=== PATIENT | male | born 1955 | race Caucasian/White ===

== ENCOUNTER 2020-05-23 09:28 | Day surgery (SDC) | payer BC, SELFPAY ==
--- NOTE | 2020-05-23 | FL_ITS ---
EXAMINATION: XR LUMBAR PUNCTURE CLINICAL INFORMATION: Encephalopathy COMPARISON: None TECHNIQUE/findings: Procedure and risks and benefits including bleeding, infection and headache were discussed with the patient and his and informed consent was obtained. Patient was positioned in the prone/slight ELLER position. The left back was prepped and draped in the usual sterile fashion. The skin and soft tissues were anesthetized with 1% lidocaine plain. Using fluoroscopic guidance and a 22-gauge spinal needle, left-sided interlaminar access at the L4-L5 level was obtained. Opening pressure was 12 cm of water. 8 mL of clear CSF fluid was removed. One fluoroscopic image was saved. Diagnostic specimen was sent. FLUOROSCOPY TIME: 0.1 minute DOSE AREA PRODUCT: 0.9 mortensen per centimeter squared IMPRESSION: Fluoroscopy-guided lumbar puncture.
[2020-05-23 10:07] LABS: MANUAL DIFF FLAG NO
[2020-05-23 10:15] LABS: Basophils Percent Auto 0.5 % (0-2); Eosinophils Absolute Auto 0.1 X10*3/uL (0.0-0.4); Eosinophils Percent Auto 1.3 % (0-4); Hematocrit 43.3 % (42-52); Hemoglobin 14.9 g/dl (14.0-18.0); Imm Gran Abs Auto 0.03 X10*3/uL (0.00-0.03); Imm Gran Pct Auto 0.4 % (0.0-0.4); Lymphocytes Absolute Auto 1.9 X10*3/uL (1.2-4.9); Lymphocytes Percent Auto 24.5 % (20-40); Mean Corpuscular HGB Conc 34.4 g/dl (31.0-36.0); Mean Corpuscular Hemoglobin 29.4 pg (27.0-33.0); Mean Corpuscular Volume 85.4 fL (80-98); Mean Platelet Volume 9.2 fL (9.4-12.4); Monocytes Absolute Auto 0.7 X10*3/uL (0.1-1.2); Monocytes Percent Auto 9.6 % (2-11); Neutrophils Absolute Auto 4.8 X10*3/uL (2.0-8.3); Neutrophils Percent Auto 63.7 % (45-73); Platelet Count 252 X10*3/uL (160-400); Red Blood Count 5.07 X10*6/uL (4.60-5.80); Red Cell Distribution Width 13.2 % (11.0-16.0); White Blood Count 7.6 X10*3/uL (4.8-10.8)
[2020-05-23 10:27] LABS: INTERNATIONAL NORM RATIO 0.9 (0.9-1.1); Prothrombin Time 11.2 SEC (10.8-13.0)
[2020-05-23 10:28] VITALS: BP 141/88; PULSE 96; RESP 20; TEMP 36.6; O2SAT 95
[2020-05-23 10:29] VITALS: BMI 25.7
[2020-05-23 10:29] LABS: Partial Thromboplastin Time 33.8 SEC (24.1-38.0)
[2020-05-23 12:58] VITALS: BP 150/81; PULSE 87; RESP 14; TEMP 37.2; O2SAT 94
[2020-05-23 13:29] VITALS: BP 142/89; PULSE 78; RESP 16; O2SAT 94
[2020-05-23 13:41] LABS: Appearance CSF CLEAR; CSF Tube # 3
[2020-05-23 13:54] LABS: Glucose CSF 64 mg/dL; Total Protein CSF 49.1 mg/dL (15-45)
[2020-05-23 14:02] VITALS: BP 136/90; PULSE 86; RESP 16; O2SAT 93
[2020-05-23 15:02] VITALS: BP 152/93; PULSE 85; RESP 17; TEMP 36.6; O2SAT 93
[2020-05-23 15:13] LABS: Lymphocytes CSF 100 %
[2020-05-23 15:14] LABS: Appearance CSF CLEAR; CSF Tube # 4; Color CSF COLORLESS; Red Blood Cell CSF 1 MM*3; White Blood Cell CSF 2 MM*3
== END 2020-05-23 23:59 ==
PROVIDERS: Radiology Diagnostic Radiology; PCP Internal Medicine; Visit Provider Psychiatry & Neurology Neurology
PROC: 009U3ZZ Drainage of Spinal Canal, Percutaneous Approach (ICD-10-PCS; CPT 62270; principal; 2020-05-23 11:00)
DX: G93.40 Encephalopathy, unspecified (principal); F41.8 Other specified anxiety disorders; F22 Delusional disorders; M19.90 Unspecified osteoarthritis, unspecified site
CPT/HCPCS: 36415; 62328; 82945; 84157; 85025; 85610; 85730; 87015; 87070; 87205; 89051

== ENCOUNTER → 2020-09-20 15:20 | Outpatient (BNVA) | payer BC, SELFPAY | PROVIDERS: PCP Internal Medicine; Visit Provider Surgery | DX: L72.0 Epidermal cyst (principal); L08.9 Local infection of the skin and subcutaneous tissue, unspecified | CPT/HCPCS: 10060; 10061 ==

== ENCOUNTER 2023-02-07 07:57 | Outpatient (REF) | payer MEDICARE, BC, SELFPAY ==
--- NOTE | 2023-02-07 09:16 | EEG_ITS ---
This is a 16 channel EEG with an EKG lead. The patient is reported awake, restless and confused. Background EEG rhythm is low to medium amplitude, mixed theta, beta with no obvious asymmetry or paroxysmal tendency. Photic stimulation does not produce any significant abnormality. Hyperventilation is not performed. Cardiac lead does not reveal any significant abnormality. No sharp wave spikes or paroxysmal tendencies noted. IMPRESSION: Mild slowing, otherwise no significant abnormality. MD CHIP Ling/RUDY / [id number]
== END 2023-02-07 07:58 | disposition home or self-care (01) ==
LOC: HO.NEURO 07:57
PROVIDERS: Visit Provider Psychiatry & Neurology Neurology
DX: G31.83 Neurocognitive disorder with Lewy bodies (principal)
CPT/HCPCS: 95816

== ENCOUNTER 2025-07-31 13:40 | Inpatient (IN) | payer OTHER, SELFPAY ==
--- NOTE | ~2025-07-31 | US_ITS ---
EXAMINATION: US TRIPLEX LOWER EXTREMITY, BILATERAL CLINICAL INFORMATION: Subsegmental PE COMPARISON: None available. TECHNIQUE: Color-flow triplex imaging with spectral analysis and compression Doppler were performed on the bilateral lower extremities. FINDINGS: Respiratory variation, normal compression and augmented flow are demonstrated in the interrogated common femoral vein, superficial femoral vein, profunda femoral vein, popliteal vein and midcalf peroneal and posterior tibial venous segments, both lower extremities. There is no Nguyen's cyst. US/US venous duplex LE BI IMPRESSION: No acute deep venous thrombosis interrogated veins and the lower extremity. Negative for DVT.. Electronically signed by: Jake Leyva MD 08/02/2025 10:30 AM EST
--- NOTE | ~2025-07-31 | CT_ITS ---
CLINICAL HISTORY: SOB, hypoxia 82% room air, R O PE. Exam: Contrast-enhanced chest CT pulmonary angiogram with multiplanar reformats. Comparison: None. Findings: There are left lower lobe subsegmental pulmonary emboli (17; 313 -343). No other definable pulmonary emboli. The RV/LV ratio approaches 1.0 (measured on 17; 365), borderline in terms of the meeting CT criteria for right ventricular strain. No mediastinal or hilar masses or adenopathy. There appears to be a poorly defined right lobe thyroid nodule measuring up to 3.2 cm (17; 115). No pleural or pericardial effusions. Images below the diaphragms reveal no acute abnormalities. Lungs reveal likely atelectasis within the right posterior sulcus. No other focal consolidation. Airways are patent. No pneumothorax. Osseous structures reveal no destructive osseous lesions. Impression: 1. Left lower lobe subsegmental pulmonary emboli, with borderline findings raising the possibility of developing right ventricular strain. This document has been electronically signed by: Chava Teresa MD on 07/31/2025 16:26:52
--- NOTE | ~2025-07-31 | CT_ITS ---
CLINICAL HISTORY: mental status change CT head without contrast Comparison: None Findings: No intracranial mass, midline shift, hydrocephalus, or acute hemorrhage. No CT evidence of acute ischemia. Visualized paranasal sinuses and mastoid air cells normal. Orbits unremarkable. No skull fracture Impression: 1. No acute intracranial abnormalities. This document has been electronically signed by: Chava Teresa MD on 07/31/2025 16:05:32
--- NOTE | ~2025-07-31 | XR_ITS ---
CLINICAL HISTORY: SOB 1 view chest x-ray. Comparison: None Findings: No consolidation or effusion. Cardiac and mediastinal contours appear unremarkable. There is elevation of the right hemidiaphragm. Bones unremarkable. Impression: 1. No acute pulmonary disease. 2. Elevated right hemidiaphragm. This document has been electronically signed by: Chava Teresa MD on 07/31/2025 14:47:01
--- NOTE | 2025-07-31 13:47 | ECG_ITS ---
Test Reason : weakness Blood Pressure : */* mmHG Vent. Rate : 103 BPM Atrial Rate : 103 BPM P-R Int : 144 ms QRS Dur : 88 ms QT Int : 360 ms P-R-T Axes : 57 20 270 degrees QTcB Int : 471 ms Sinus tachycardia T wave abnormality, consider inferior ischemia T wave abnormality, consider anterolateral ischemia Abnormal ECG When compared with ECG of 10-Apr-2020 11:17, ST more depressed Anterior leads Non-specific change in ST segment in Lateral leads T wave inversion now evident in Inferior leads T wave inversion now evident in Anterolateral leads Referred By: Vy Gross Electronically Signed By: German Hayes
[2025-07-31 13:56] VITALS: BP 168/104; PULSE 105; O2SAT 94
[2025-07-31 14:05] VITALS: BP 145/95; PULSE 104; RESP 26; TEMP 36.4; O2SAT 83; BMI 26.4
[2025-07-31 14:30] LABS: Hematocrit 50.4 % (42.0-52.0); Hemoglobin 17.4 g/dl (14.0-18.0); Imm Gran Abs Auto 0.02 X10*3/uL (0.00-0.03); Imm Gran Pct Auto 0.2 % (0.0-0.4); Lymphocytes Absolute Auto 0.4 X10*3/uL (1.2-4.9); MANUAL DIFF FLAG SCAN; Mean Corpuscular HGB Conc 34.5 g/dl (31.0-36.0); Mean Corpuscular Hemoglobin 28.6 pg (27.0-33.0); Mean Corpuscular Volume 82.9 fL (80.0-98.0); NRBC Abs Auto 0.000 X10*3/uL (0.0-0.012); NRBC Pct Auto 0.0 /100WBC (0.0-0.2); Platelet Count 197 X10*3/uL (160-400); Red Blood Count 6.08 X10*6/uL (4.60-5.80); SCAN SMEAR FLAG 1; White Blood Count 8.3 X10*3/uL (4.8-10.8)
[2025-07-31 14:36] LABS: Ammonia 17 umol/L (13-55)
[2025-07-31 14:43] LABS: Alanine Aminotransferase 41 U/L (0-40); Albumin Level 4.4 g/dL (3.5-5.0); Alkaline Phosphatase 79 U/L (39-117); Anion Gap 17 (12-20); Aspartate Amino Transferase 31 U/L (5-37); Blood Urea Nitrogen 23 mg/dL (9-16); Calcium 8.8 mg/dL (8.4-10.2); Carbon Dioxide 22 mmol/L (22-29); Chloride 108 mmol/L (96-108); Creatinine Clr Calc Pharmacy 68.6; Estimated Glomerular Filt Rate > 60; Potassium 4.5 mmol/L (3.3-5.1); Sodium 142 mmol/L (135-145); Total Protein 7.2 g/dL (6.5-8.0)
[2025-07-31 14:49] LABS: D Dimer High Sensitivity 991 NG/ML
--- NOTE | 2025-07-31 14:50 | PC.NURSE ---
verbal order from dr fuller for home doses of seroquel and clonazepam. pt able to void into urinal, urine sample sent
[2025-07-31 14:51] LABS: Troponin-I High Sensitivity 9.5 ng/L (<3.5-35.0)
[2025-07-31 14:53] LABS: Appearance Urine Clear; Glucose Urine UA Negative (Negative); PH 5.0 (5.0-9.0); Specific Gravity - Urine >= 1.030 (1.005-1.025); UMIC TRIGGER UACC YES
[2025-07-31 15:09] LABS: Resp Syncy Virus RNA Qual PCR NEGATIVE (Negative); SARS COV2 PCR INHOUSE NEGATIVE (Negative)
[2025-07-31] MEDS: iohexoL 350 MG/ML 100 ML INFUS..BTL IV (15:16)
--- NOTE | 2025-07-31 15:41 | ED.AMS ---
HPI - Altered Mental Status General Chief Complaint: Altered Mental Status Stated Complaint: ams, stroke alert, gen weakness lnw 7a Time Seen by Provider: 07/31/25 14:17 Source: patient, family and EMS Mode of arrival: EMS Limitations: no limitations History of Present Illness ED Provider: DR. Gross HPI narrative: 69-year-old male history of mental deterioration since 2019 after he had a knee surgery, patient had a neurological workup including CT/ MRI/neurology consultation and patient is getting workup for dementia, came in today by ambulance after noticed that patient is more confused than his baseline. No head injury, no fall, no trauma, no fever, no chills, no CP, no abdominal pain. Patient found to be hypoxic in the emergency department no known lung disease. Patient otherwise shows no symptoms of acute stroke. Related Data Home Medications ?Medication ?Instructions ?Recorded ?Confirmed quetiapine 25 mg tablet 12.5 mg PO QID 05/23/20 07/31/25 tamsulosin 0.4 mg capsule 0.8 mg PO DAILY@1800 05/23/20 07/31/25 docusate sodium 100 mg capsule 200 mg PO DAILY@1800 09/20/20 07/31/25 (Colace) trazodone 100 mg tablet 200 mg PO BEDTIME 09/20/20 07/31/25 aspirin 81 mg tablet,delayed 81 mg PO DAILY 07/31/25 07/31/25 release carbidopa 25 mg-levodopa 100 mg 1 tab PO BID@0900,1800 07/31/25 07/31/25 tablet (Sinemet) clonazepam 0.5 mg tablet 0.125 mg PO TID PRN Anxiety 07/31/25 07/31/25 clonazepam 0.5 mg tablet 0.25 mg PO TID 07/31/25 07/31/25 diclofenac sodium 1 % topical gel 2 g topical DAILY 07/31/25 07/31/25 escitalopram oxalate 10 mg tablet 5 mg PO DAILY 07/31/25 07/31/25 melatonin 5 mg tablet 5 mg PO BEDTIME 07/31/25 07/31/25 memantine 10 mg tablet 10 mg PO BID@0900,1800 07/31/25 07/31/25 metoprolol succinate 100 mg 100 mg PO DAILY 07/31/25 07/31/25 tablet,extended release 24 hr mirtazapine 7.5 mg tablet 3.75 mg PO BEDTIME 07/31/25 07/31/25 polyethylene glycol 3350 17 17 g PO DAILY 07/31/25 07/31/25 gram/dose oral powder (Miralax) rivastigmine tartrate 3 mg capsule 3 mg PO BID@0900,1800 07/31/25 07/31/25 simvastatin 40 mg tablet 40 mg PO DAILY@1800 07/31/25 07/31/25 vitamins A,C,D-jccl-vklmge 2,148 1 tab PO BID@0900,1800 07/31/25 07/31/25 mcg-113 mg-45 mg-17.4 mg tablet (PreserVision AREDS) Allergies Allergy/AdvReac Type Severity Reaction Status Date / Time No Known Allergies Allergy Verified 07/31/25 14:06 Review of Systems Review of Systems: All other systems are reviewed and are negative Constitutional: Reports as per HPI and Reports no additional constitutional complaints Eyes: Reports as per HPI and Reports no additional eye complaints Reports system reviewed and no additional complaints, except as documented Cardiovascular: Reports as per HPI and Reports no additional cardiovascular complaints Respiratory: Reports as per HPI and Reports no additional respiratory complaints Gastrointestinal: Reports as per HPI and Reports no additional gastrointestinal complaints Genitourinary: Reports no additional female genitourinary complaints Musculoskeletal: Reports no additional musculoskeletal complaints Skin/Breast: Reports system reviewed and no additional complaints, except as docu Psychiatric: Reports no additional psychiatric complaints Endocrine: Reports no additional endocrine complaints Hematologic/Lymphatic: Reports no additional hematologic/lymphatic complaints Allergic/Immunologic: Reports no additional allergic/immunologic complaints Reports system reviewed and no additional complaints, except as documented and Reports Abnormal speech present [facility] Past Medical History Medical History Infected inclusion cyst 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 Anxiety as acute reaction to exceptional stress Depression Social History Social History Unable to assess alcohol history related to: Unknown Smoked in Last 30 Days: No Use of substances other than those prescribed or required for medical reasons: Unknown Advance Directives: Yes Advance Directives Information Provided: No Advance Directives on File: No Advance Directives Date on File: 05/23/20 Physical Exam ED Vital Signs: Vital Signs - 24 hr 07/31/25 14:05 07/31/25 16:00 Temperature 97.5 F Pulse Rate 104 H 89 Respiratory Rate 26 H 26 H Blood Pressure 145/95 H Pulse Oximetry 83 L 94 Oxygen Delivery Method Room Air Nasal Cannula Oxygen Flow Rate 4 BMI result Body Mass Index 26.4 Vital signs have been reviewed and appear to be correct. Blood pressure elevated. Heart rate normal. Respiratory rate normal. Temperature normal. Oxygen saturation normal. Appearance: Alert. Oriented X2 place and person.. No acute distress. Head: Normal external exam. Normocephalic. Atraumatic. No Aguila signs noted. No raccoon eyes noted Eyes: PERRLA. EOMI. Conjunctiva and sclera normal. Eyelids normal. ENT: TM's Normal. Pharynx normal. Uvula midline. Moist mucous membranes. No trismus noted. No drooling noted. No muffled voice noted. Neck: Normal inspection. Neck supple. FROM. No adenopathy. Thyroid Normal. No meningeal signs. No neck mass noted. CVS: Normal heart rate and rhythm. Heart sound normal. No murmurs noted. Pulses normal throughout. Respiratory: No respiratory distress. Painless inspiration. Breath sounds normal. No wheezes/rales/rhonchi noted. Chest nontender. No accessory muscle usage noted or decreased air movement noted. Abdomen: Soft and nontender. Bowel sounds normal in all 4 quadrants. No distention noted. No organomegaly noted. No visible injury noted. Back: No CVA tenderness. Full range of motion noted. Skin: Skin warm and dry. Normal skin color. Normal skin turgor. No rashes/lesions/lacerations noted. Extremities: No lower extremity edema. Extremities exhibit normal range of motion. Extremities nontender. Neuro: Oriented X [address] Place and person. Cranial nerve exam: II-XII are grossly intact No motor deficit. No sensory deficit. Reflexes normal. NIH Stroke Scale Internal: Initial- Upon Arrival Level of Consciousness: Alert Level of Consciousness Questions: Answers both questions correctly Level of Consciousness Commands: Performs both tasks correctly Best Gaze: Normal Visual: No visual loss Facial Palsy: Normal Motor Arm (Right): No drift Motor Arm (Left): No drift Motor Leg (Right): No drift Motor Leg (Left): No drift Limb Ataxia: Absent Sensory: Normal Best Language: No aphasia Dysarthia: Normal Extinction and Inattention: No abnormality Score: 0 Course Reevaluation(s) Reevaluation #1: 69-year-old male with a chronic decreased mental status since 2019 had a thorough workup for dementia as an outpatient return for confusion incidentally patient found to be hypoxic on room air corrected with 2 L of oxygen. await for both CTA head and neck and CTA of the chest to rule out pulmonary pathology, case signed out to Dr. Tate at the end of my shift to follow-up and the patient and dispo accordingly. Time: 16:02 Medications Administered Discontinued Medications Generic Name Dose Route Start Last Admin Trade Name Freq PRN Reason Stop Dose Admin Clonazepam 0.25 mg 07/31/25 14:49 07/31/25 14:57 Clonazepam 0.5 Mg Tablet PO 07/31/25 14:50 0.25 mg ONCE ONE Administration Enoxaparin Sodium 90 mg 07/31/25 16:35 07/31/25 16:59 Enoxaparin Sodium 100 Mg/Ml Syringe 1 mg/kg (90 mg) 07/31/25 16:36 90 mg SUBCUT Administration ONCE ONE Iohexol 100 ml 07/31/25 15:16 07/31/25 15:16 Iohexol 350 Mg/Ml 100 Ml Infus..Btl IV 07/31/25 15:17 65 ml ONCE ONE Administration Quetiapine Fumarate 12.5 mg 07/31/25 14:49 07/31/25 14:57 Quetiapine Fumarate 25 Mg Tablet PO 07/31/25 14:50 12.5 mg ONCE ONE Administration Medical Decision Making Medical Decision Making MDM Narrative: Patient is 69 years old presents today with having shortness of breath. Generalized malaise. Question confusion earlier. I took over the patient's case at the change of shift at 16:00. CTA angio of the chest was ordered. I reviewed the CTA angio also reviewed the finding with the radiology's group. He is positive for having a PE. With possible mild heart strain. Patient's blood pressure here is stable. Does have decreased oxygenation in the 80s. I started patient on Lovenox. Patient will require admission for further evaluation of the PE. The hospitalist team was Consulted. Patient to be admitted. Differential Diagnosis Differential Diagnoses: The differential diagnosis associated with the presentation includes ( Dementia, electrolyte derangement, severe anemia, hemorrhagic stroke, ischemic stroke, pulmonary embolism, pneumonia, pneumothorax, pleural effusion, congestive heart failure.) PE, pneumonia Admission/Observation Consideration of admission/observation: Escalation of care including admission/observation considered Consult Healthcare Provider Management of the patient was discussed with: Hospitalist ( case discussed with hospitalist team about the PE finding) Lab Data MDM Lab Attestation statement: I reviewed the patient's lab results. 07/31/25 14:20 07/31/25 14:20 Labs: Lab Results 07/31/25 07/31/25 07/31/25 Range/Units 14:20 14:35 14:46 WBC 8.3 (4.8-10.8) X10*3/uL RBC 6.08 H (4.60-5.80) X10*6/uL Hgb 17.4 (14.0-18.0) g/dl Hct 50.4 (42.0-52.0) % MCV 82.9 (80.0-98.0) fL MCH 28.6 (27.0-33.0) pg MCHC 34.5 (31.0-36.0) g/dl RDW 13.3 (11.0-16.0) % Plt Count 197 (160-400) X10*3/uL MPV 8.6 L (9.4-12.4) fL Immature Gran % (Auto) 0.2 (0.0-0.4) % Neut % (Auto) 90.2 H (45-73) % Lymph % (Auto) 4.3 L (20-40) % [place] % (Auto) 5.0 (2-11) % Eos % (Auto) 0.1 (0-4) % Baso % (Auto) 0.2 (0-2) % Lymph # (Auto) 0.4 L (1.2-4.9) X10*3/uL [place] # (Auto) 0.4 (0.1-1.2) X10*3/uL Eos # (Auto) 0.0 (0.0-0.4) X10*3/uL Baso # (Auto) 0.0 (0.0-0.2) X10*3/uL Abs Immat Gran (auto) 0.02 (0.00-0.03) X10*3/uL Absolute Neuts (auto) 7.5 (2.0-8.3) x10*3/uL Absolute Nucleated RBC 0.000 (0.0-0.012) X10*3/uL Nucleated RBC % (auto) 0.0 (0.0-0.2) /100WBC Smear Tech's Comments VERIFIED D-Dimer High Sensitivty 991 NG/ML Sodium 142 (135-145) mmol/L Potassium 4.5 (3.3-5.1) mmol/L Chloride 108 (96-108) mmol/L Carbon Dioxide 22 (22-29) mmol/L Anion Gap 17 (12-20) BUN 23 H (9-16) mg/dL Creatinine 1.13 (0.5-1.4) mg/dL Estim Creat Clear Calc 68.6 Estimated GFR > 60 Random Glucose 121 H (60-115) mg/dL Lactic Acid 1.8 (0.5-2.0) mmol/L Calcium 8.8 (8.4-10.2) mg/dL Total Bilirubin 0.8 (0.0-1.0) mg/dL Direct Bilirubin 0.3 (0.0-0.5) mg/dL AST 31 (5-37) U/L ALT 41 H (0-40) U/L Alkaline Phosphatase 79 (39-117) U/L Ammonia 17 (13-55) umol/L Troponin I High Sens 9.5 (<3.5-35.0) ng/L NT-Pro-B Natriuret Pep 2058.5 H (<300) pg/mL Total Protein 7.2 (6.5-8.0) g/dL Albumin 4.4 (3.5-5.0) g/dL Urine Color Yellow Urine Appearance Clear Urine pH 5.0 (5.0-9.0) Ur Specific [place] >= 1.030 H (1.005-1.025) Urine Protein 30 (1+) H (Neg-Trace) mg/dL Urine Glucose (UA) Negative (Negative) mg/dL Urine Ketones 15 (Negative) mg/dL Urine Blood Trace H (Negative) Urine Nitrite Negative (Negative) Ur Leukocyte Esterase Trace H (Negative) Urine RBC 6-10 H (0-2) /HPF Urine WBC 0-5 (0-5) /HPF Ur Squamous Epith Cells 0-2 (0-2) /HPF Urine Bacteria None Seen (None Seen) Hyaline Casts 0-2 (0-2) /LPF Influenza Type A (PCR) NEGATIVE (Negative) Influenza Type B (PCR) NEGATIVE (Negative) RSV RNA Qual (PCR) NEGATIVE (Negative) SARS-CoV-2 RNA (RT-PCR) NEGATIVE (Negative) Independent Interpretation I performed an independent interpretation of an: Plain X-Ray ( chest: No acute intrathoracic pathology.) and CT Scan Radiology Impression Discussion of test interpretation with radiology: I discussed test interpretation with the radiologist and I have reviewed the radiologist's reading. Critical Care Time Critical Care Time Critical Care Time: Yes Total Critical Care Time: 40 Attestation: I have personally provided 40 minutes of critical care time exclusive of time spent on separately billable procedures. Time includes review of lab data, radiology results, discussion with consultants, and monitoring for potential decompensation. Interventions were performed as documented above Discharge Plan Discharge Clinical Impression: Altered mental status, Hypoxia, Pulmonary embolism Patient Disposition: Admitted As Inpatient
[2025-07-31 16:00] VITALS: PULSE 89; RESP 26; O2SAT 94
--- OUTSIDE RECORDS SUMMARY | 2025-07-31 16:03 | XMS_ITS | Encounter Summary ---
Author Organization [facility] Address [address] [place] [address] Care Team Providers Care Medical Office Coordinator Name Role Phone Ref, Hasnopcp Primary Care Provider Unavailabl e Encounter Details Date Type Department Care Team (Latest Contact Info) Description 07/21/2025 myChart Message [address] [phone] Osman Ma MD [address] [place] [phone] Upcoming Appointment Social History Tobacco Use Types Packs/Day Years Used Date Smoking Tobacco: Former Cigarettes Smokeless Tobacco: Never Comments:Previous smoker for short time, not in years Alcohol Use Standard Drinks/Week Comments Not Currently 0 (1 standard drink = 0.6 oz pure alcohol) previously minimal alcohol use, now not drinking at all Sex and Gender Information Value Date Recorded Sex Assigned at Male 12/24/2022 6:56 PM EDT Legal Sex Male 3:59 AM EDT Gender Identity Male 12/24/2022 6:56 PM EDT Sexual Orientation Straight 12/24/2022 6: 56 PM EDT documented as of this encounter Plan of Treatment Upcoming Encounters Date Type Department Care Team (Late st Contact Info) Description 08/04/2025 1:30 PM EST Follow-Up [address] [phone] Osman Ma MD [address] [place] [phone] documented as of this encounter Visit Diagnoses Not on filedocumented in this encounter Care Teams Medical Office Coordinator Relationship Specialty Start Date End Date Ref, Pieter DO NOT EDIT THIS RECORD VIA PROVIDER ON THE FLY PCP - General E Learning Coordinator 10/01/22 documented as of this encounter
--- OUTSIDE RECORDS SUMMARY | 2025-07-31 16:03 | XMS_ITS | Encounter Summary ---
Author Organization [facility] Address [address] [place] [address] Care Team Providers Care Sanitation Tank Washer Name Role Phone Ref, Hasnopcp Primary Care Provider Unavailabl e Encounter Details Date Type Department Care Team (Late st Contact Info) Description 09/12/2023 Orders Only [facility] Medicine [address] [place] [phone] Chava Lama MD PhD [address] [place] [address] Social History Tobacco Use Types Packs/Day Years [...] Info) Description 08/04/2025 1:30 PM EST Follow-Up [facility] - Neurology [address] [place] [phone] Osman Ma MD [address] [place] [address] documented as of this encounter Visit Diagnoses Not on filedocumented in this encounter Care Teams Sanitation Tank Washer Relationship Specialty Start Date End Date Ref, Pieter DO NOT EDIT THIS RECORD VIA PROVIDER ON THE FLY PCP - General Apparel Merchandiser 10/01/22 documented as of this encounter
--- OUTSIDE RECORDS SUMMARY | 2025-07-31 16:03 | XMS_ITS | Clinical Summary ---
Author Organization [facility] Address [address] [place] [address] Care Team Providers Care Equipment Installer Name Role Phone Ref, Hasnopcp Primary Care Provider Unavailabl e Allergies No known active allergies Medications clonazePAM (KlonoPIN) 0.5 mg tablet 1.25 mg. Total in the day 3 Active memantine (NAMENDA) 10 mg tablet Take 10 mg by mouth 2 times a day. 3 Active metoprolol succinate XL (TOPROL XL) 100 mg tablet Take 100 mg by mouth once a day. 3 Active rivastigmine (EXELON) 3 mg capsule Take 3 mg by mouth 2 times a day. 3 Active melatonin 3 mg tablet Take 5 mg by mouth nightly. 2 tablets at night. Active QUEtiapine (SEROquel) 25 mg tablet Take 25 mg by mouth nightly. Takes 12.5 mg at 8:30 am, then 12.5 at 2:30 pm, then 100 mg at bedtime 3 Active vit A/vit C/vit E/zinc/copper (PRESERVISION AREDS ORAL) Take by mouth. 1 in the morning and one at 6 pm Active docusate sodium (COLACE) 50 mg capsule Take by mouth once a day. Gel caps Takes 3 gel Active simvastatin (ZOCOR) 20 mg tablet Take 40 mg by mouth nightly. Take 1 Tablet Active traZODone (DESYREL) 100 mg tablet Take 200 mg by mouth nightly. 3 Active tamsulosin (FLOMAX) 0.4 mg capsule Take 0.8 mg by mouth once a day. Active aspirin chewable tablet 81 mg Chew and swallow 81 mg by mouth once a day. Active escitalopram (LEXAPRO) 10 mg tablet Take 5 mg by mouth once a day. 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 Lewy body dementia with mood disturbance 023 Anxiety disorder 12/25/2022 Memory loss 12/25/2022 Disorder of bone and cartilage 12/25/2022 Balance problems 12/25/2022 Neurodegenerative disorder 12/25/2022 Persistent depressive disorder 12/25/2022 Polypharmacy 12/25/2022 Encounters Date Type Department Care Team Description 07/21/2025 myChart Message [facility] - Neurology [address] [place] [phone] Osman Ma MD Upcoming Appointment 07/12/[address] [phone] Denice Farrell (Sharifa) 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) (Primary Dx) 05/19/2025 Orders Only [facility] Neurology [address] [place] [phone] Osman Ma MD Parkinsonism, unspecified Parkinsonism type (Primary Dx) 05/19/[address] [phone] Denice Farrell (Sharifa) 05/19/2025 Refill [facility] Neurology [address] [place] [phone] Denice Farrell (Sharifa) from Last 3 Months Family History Medical History Relation Name Comments Mental illness Mother Alzheimer's disease Neg Hx Parkinsonism Neg Hx Seizures Neg Hx Stroke Neg Hx Tremor Neg Hx Relation Name Status Comments Mother Social History Tobacco Use Types Packs/Day Years Used Date Smoking Tobacco: Former Cigarettes Smokeless Tobacco: Never Tobacco Cessation:Counseling Given: Not Answered Comments:Previous smoker for short time, not in [...] Orientation Straight 12/24/2022 6: 56 PM EDT Last Filed Vital Signs Vital Sign Reading Time Taken Comments Blood Pressure 146/74 01/06/2025 2:29 PM EDT Pulse 81 01/06/2025 2:29 PM EDT Temperature - - Respiratory Rate - - Oxygen Saturation 98% 01/06/2025 2:29 PM EDT Inhaled Oxygen Concentration - - Weight 95.3 kg (210 lb) 01/06/2025 2:29 PM EDT Height - - Body Mass Index - - Plan of Treatment Upcoming Encounters Date Type Department Care Team (Late st Contact Info) Description 08/04/2025 1:30 PM EST Follow-Up [facility] - Neurology [address] [place] [phone] Osman Ma MD [address] [place] [phone] Health Maintenance Due Date Last Done Comments Cologuard 1955 Colon Cancer Screening 1955 Colonoscopy 1955 FOBT / Fit Test 1956 Hepatitis C Screening [address] Lung Cancer Screening (Baseline) 2006 Pneumococcal Vaccine: 50+ Years (2 of 2 - PCV) 08/04/2021 08/04/2020 Alcohol/Substance Use Screening 08/18/2024 Depression Screening and Follow-Up 08/18/2024 Fall Risk Screening 08/18/2024 Health Care Proxy Review 08/18/2024 Social Drivers of Health Annual Screening 08/18/2024 Influenza Vaccine (#1) 2025 , 10/14/2023, 06/03/2022, Additional history exists COVID-19 Vaccine ( season) 2025 07/27/2024, 10/14/2023, 08/25/2021, Additional history exists DTaP,Tdap,and Td Vaccines (3 - Td or Tdap) 01/20/2027 01/20/2017, 03/19/2007 RSV Vaccine (60+ years old and patients) (1 - 1-dose 75+ series) 11/27/2031 Zoster Vaccines Completed 04/27/2018, 01/17, 05/14/2016 Hepatitis B Vaccines Aged Out No long er eligible based on patient's age to complete this topic Insurance MEDICARE [facility] Member Subscriber Plan / Payer (Ef fective 2013-Present) Name:DianSong Relation to Subscriber:Self Name:BiggsSong Payer ID:[id number] (NAIC) Group ID:[id number] Type:Not on file Address: [address] [place] [id number] Care Teams Equipment Installer Relationship Specialty Start Date End Date Ref, Hasherlindapcjanet DO NOT EDIT THIS RECORD VIA PROVIDER ON THE FLY PCP - General Cabin Furnishings Installer 10/01/22
--- NOTE | 2025-07-31 17:00 | PC.NURSE ---
Unable to keep oxygen sensor on patient, he continuously removes it from finger. TRISH reagan aware. spot checking oxygen sat with rounding.
--- NOTE | 2025-07-31 17:35 | PM.IMHP ---
History of Present Illness Date of Service: 07/31/25 Attending physician on admission: Minh Bingham Chief Complaint: shortness of breath This is a 69-year-old male history of cognitive impairment, parkinsonism, hypertension, BPH who was brought in by his due to increased anxiety and more confusion than usual. On arrival in the emergency department he was noted to be hypoxic with an oxygen saturation of 83% on room air. He was placed on 4 L nasal cannula to bring oxygen into the low to mid 90s. History was primarily obtained from the patient's at the bedside due to patient's underlying severe anxiety and cognitive impairment. She reports he has had 6 weeks of shortness of breath which has limited his activity. He is typically very sedentary but he does walk on a treadmill daily, over the past 6 weeks his endurance has gradually decreased until he is was unable to do any walking at all. Is unclear if the patient has been experiencing any chest pain or palpitations. He [facility] who ordered an EKG which was reportedly abnormal. That was followed up with an echocardiogram on July 22 which showed evidence of severe pulmonary hypertension. In the ED ddimer was elevated so a CTA was obtained which showed left lower lobe subsegmental pulmonary emboli with borderline findings raising the possibility of developing right ventricular strain. BNP 2058, initial troponin 9.5, repeat pending. There have been no recent surgery, trauma, or travel. No known malignancy. In the ED, the patient was treated with therapeutic Lovenox. Of note patient is very anxious and restless throughout exam, he has been unable to tolerate being on cardiac exercise specialist. 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 Anxiety as acute reaction to exceptional stress Depression Social History Unable to assess alcohol history related to: Unknown Smoked in Last 30 Days: No Use of substances other than those prescribed or required for medical reasons: Unknown Advance Directives: Yes Advance Directives Information Provided: No Advance Directives on File: No Advance Directives Date on File: 05/23/20 Meds Allergies Allergy/AdvReac Type Severity Reaction Status Date / Time No Known Allergies Allergy Verified 07/31/25 14:06 Active Medications: Current Medications Carbidopa/Levodopa (Carbidopa/Levodopa 25/100 Tablet) 1 tab PO BID@0900,1800 [facility] Clonazepam (Clonazepam 0.5 Mg Tablet) 0.125 mg PO TID PRN PRN Reason: Anxiety Clonazepam (Clonazepam 0.5 Mg Tablet) 0.25 mg PO TID [facility] Docusate Sodium (Docusate Sodium 100 Mg Capsule) 200 mg PO DAILY@1800 [facility] Escitalopram Oxalate (Escitalopram Oxalate 5 Mg Tablet) 5 mg PO DAILY [facility] Melatonin (Melatonin 3 Mg Tablet) 6 mg PO BEDTIME [facility] Memantine (Memantine Hcl 10 Mg Tablet) 10 mg PO BID@0900,1800 [facility] Metoprolol Succinate (Metoprolol Succinate Er 100 Mg Tab.Er.24h) 100 mg PO DAILY [facility]; Protocol Mirtazapine (Mirtazapine 7.5 Mg Tablet) 3.75 mg PO BEDTIME [facility] Non-Formulary Medication (Simvastatin) 40 mg PO DAILY@1800 [facility] Polyethylene Glycol (Polyethylene Glycol 3350 17 Gm Powd.Pack) 17 gm PO DAILY [facility] Quetiapine Fumarate (Quetiapine Fumarate 25 Mg Tablet) 12.5 mg PO QID [facility] Rivastigmine Tartrate (Rivastigmine Tartrate 1.5 Mg Capsule) 3 mg PO BID@0900,1800 [facility] Tamsulosin HCl (Tamsulosin Hcl 0.4 Mg Capsule) 0.8 mg PO DAILY@1800 [facility] Trazodone HCl (Trazodone Hcl 100 Mg Tablet) 200 mg PO BEDTIME [facility] Home Medications ?Medication ?Instructions ?Recorded ?Confirmed ?Last Taken ?Type quetiapine 25 mg tablet 12.5 mg PO QID 05/23/20 07/31/25 Unknown History tamsulosin 0.4 mg capsule 0.8 mg PO DAILY@1800 05/23/20 07/31/25 Unknown History docusate sodium 100 mg capsule 200 mg PO DAILY@1800 09/20/20 07/31/25 Unknown History (Colace) trazodone 100 mg tablet 200 mg PO BEDTIME 09/20/20 07/31/25 Unknown History aspirin 81 mg tablet,delayed 81 mg PO DAILY 07/31/25 07/31/25 Unknown History release carbidopa 25 mg-levodopa 100 mg 1 tab PO BID@0900,1800 07/31/25 07/31/25 Unknown History tablet (Sinemet) clonazepam 0.5 mg tablet 0.125 mg PO TID PRN Anxiety 07/31/25 07/31/25 Unknown History clonazepam 0.5 mg tablet 0.25 mg PO TID 07/31/25 07/31/25 Unknown History diclofenac sodium 1 % topical gel 2 g topical DAILY 07/31/25 07/31/25 Unknown History escitalopram oxalate 10 mg tablet 5 mg PO DAILY 07/31/25 07/31/25 Unknown History melatonin 5 mg tablet 5 mg PO BEDTIME 07/31/25 07/31/25 Unknown History memantine 10 mg tablet 10 mg PO BID@0900,1800 07/31/25 07/31/25 Unknown History metoprolol succinate 100 mg 100 mg PO DAILY 07/31/25 07/31/25 Unknown History tablet,extended release 24 hr mirtazapine 7.5 mg tablet 3.75 mg PO BEDTIME 07/31/25 07/31/25 Unknown History polyethylene glycol 3350 17 17 g PO DAILY 07/31/25 07/31/25 Unknown History gram/dose oral powder (Miralax) rivastigmine tartrate 3 mg capsule 3 mg PO BID@0900,1800 07/31/25 07/31/25 Unknown History simvastatin 40 mg tablet 40 mg PO DAILY@1800 07/31/25 07/31/25 Unknown History vitamins A,C,M-fcoq-jhrvpd 2,148 1 tab PO BID@0900,1800 07/31/25 07/31/25 Unknown History mcg-113 mg-45 mg-17.4 mg tablet (PreserVision AREDS) Physical Exam Vital Signs and Narrative: Vital Signs: Last Vital Signs Temp 97.5 F 07/31/25 14:05 Pulse 89 07/31/25 16:00 Resp 26 H 07/31/25 16:00 BP 145/95 H 07/31/25 14:05 Pulse Ox 94 07/31/25 16:00 O2 Del Method Nasal Cannula 07/31/25 16:00 O2 Flow Rate 4 07/31/25 16:00 BMI result Body Mass Index 26.4 Const: Other: anxious and restless; doesn't answer most questions directly General: alert and awake Resp: Other: mild tachypnea Effort & Inspection: normal respiratory effort, able to speak in complete sentences and no use of accessory muscles Cardio: Rate: regular rate GI: Inspection: No distended Neuro: Other: limited exam Extrem: General: Yes no calf tenderness and No pedal edema Results Labs 07/31/25 14:20 07/31/25 14:20 Labs: Laboratory Results - last 24 hr 07/31/25 07/31/25 07/31/25 14:20 14:35 14:46 MCV 82.9 MCH 28.6 MCHC 34.5 RDW 13.3 Plt Count 197 MPV 8.6 L Immature Gran % (Auto) 0.2 Neut % (Auto) 90.2 H Lymph % (Auto) 4.3 L [place] % (Auto) 5.0 Eos % (Auto) 0.1 Baso % (Auto) 0.2 Lymph # (Auto) 0.4 L [place] # (Auto) 0.4 Eos # (Auto) 0.0 Baso # (Auto) 0.0 Abs Immat Gran (auto) 0.02 Absolute Neuts (auto) 7.5 Absolute Nucleated RBC 0.000 Nucleated RBC % (auto) 0.0 Smear Tech's Comments VERIFIED D-Dimer High Sensitivty 991 Anion Gap 17 Estim Creat Clear Calc 68.6 Estimated GFR > 60 Random Glucose 121 H Lactic Acid 1.8 Calcium 8.8 Total Bilirubin 0.8 Direct Bilirubin 0.3 AST 31 ALT 41 H Alkaline Phosphatase 79 Ammonia 17 Troponin I High Sens 9.5 NT-Pro-B Natriuret Pep 2058.5 H Total Protein 7.2 Albumin 4.4 Urine Color Yellow Urine Appearance Clear Urine pH 5.0 Ur Specific [place] >= 1.030 H Urine Protein 30 (1+) H Urine Glucose (UA) Negative Urine Ketones 15 Urine Blood Trace H Urine Nitrite Negative Ur Leukocyte Esterase Trace H Urine RBC 6-10 H Urine WBC 0-5 Ur Squamous Epith Cells 0-2 Urine Bacteria None Seen Hyaline Casts 0-2 Influenza Type A (PCR) NEGATIVE Influenza Type B (PCR) NEGATIVE RSV RNA Qual (PCR) NEGATIVE SARS-CoV-2 RNA (RT-PCR) NEGATIVE Assessment and Plan (1) Pulmonary embolism: Status: Acute Plan This is a 61 year old male with history of cognitive impairment, parkinsonism, severe anxiety and depression, hypertension, hyperlipidemia, BPH who presents to the emergency department with 6 week history of shortness of breath found to have hypoxia and new PE Acute respiratory failure with hypoxia due to left subsegmental pulmonary embolism With concern for right heart strain with BNP over 1999 Initial troponin 9.5, Repeat troponin pending Outpatient echocardiogram with severe pulmonary hypertension; will obtain repeat limited echocardiogram patient relatively sedentary but no other obvious cause of blood clot - will consult hematology due to severe pulmonary HTN, will consult pulmonary continue supplemental oxygen, may need home o2 evaluation Depression/anxiety continue baseline meds cognitive impairment/parkinsonism continue Namenda, Sinemet HLD Continue statin Hypertension Continue metoprolol BPH Continue Flomax DVT prophylaxis-Lovenox Code status-full code Patient will likely require 2 midnight stay in the hospital for management of acute respiratory failure due to PE requiring close cardiac monitoring, supplemental oxygen, specialist evaluation Quality Stroke Does the patient have a stroke diagnosis?: No VTE Prior VTE?: No VTE Risk Level:: Medical - moderate - high VTE Device Contraindication: Treatment Not Indicated VTE Drug Contraindication: N/A - Med Ordered
[2025-07-31 18:00] VITALS: BP 158/90; PULSE 99; RESP 24; TEMP 36.6; O2SAT 91
[2025-07-31 18:03] LABS: Blood Urea Nitrogen 21 mg/dL (9-16); Creatinine Clr Calc Pharmacy 71.8; Estimated Glomerular Filt Rate > 60; Hematocrit 51.6 % (42.0-52.0); Hemoglobin 17.3 g/dl (14.0-18.0); Mean Corpuscular HGB Conc 33.5 g/dl (31.0-36.0); Mean Corpuscular Hemoglobin 28.2 pg (27.0-33.0); Mean Corpuscular Volume 84.2 fL (80.0-98.0); NRBC Abs Auto 0.000 X10*3/uL (0.0-0.012); NRBC Pct Auto 0.0 /100WBC (0.0-0.2); Platelet Count 204 X10*3/uL (160-400); Red Blood Count 6.13 X10*6/uL (4.60-5.80); White Blood Count 8.2 X10*3/uL (4.8-10.8)
--- NOTE | 2025-07-31 18:06 | PHA.MEDREC ---
Addendum entered by Hardeep Spear RPh 08/01/25 11:44: Received med list from [place] and everything matches. Original Note: Pharmacy Consult ? Medication Reconciliation Pharmacy has completed the medication reconciliation. Used medication list from home provided by patients . Waiting for [place] to fax us their medication list to compare. Will have AM med rec [facility] follow up in the morning to confirm.
[2025-07-31 18:12] LABS: Troponin-I High Sensitivity 10.8 ng/L (<3.5-35.0)
--- NOTE | 2025-07-31 19:45 | PC.NURSE ---
this RN assumed care of this pt @1900, pt noted to be laying semi [place] valle's in hospital stretcher, connected to 4L NC. pt at the bedside, requesting when the pt would be expected to get a bed. This RN educated pt that the pt is currently pending a room search, once a bed becomes available we will be able to move the pt upstairs shortly after. pt noted to be A+Ox2
[2025-07-31 20:00] VITALS: PULSE 102; RESP 20
--- NOTE | 2025-07-31 20:23 | P.CNHO_ITS ---
Subjective - Subjective Chief complaint: PE Patient: new to practice Consult date: 07/31/25 Primary Care Provider: Unknown Physician Drapery Cutter Utilized?: No - Belgian Speaking HPI - Consult Narrative Reason for consult: acute PE Narrative: Song Biggs is a 69 year old male who was brought to the emergency room today because of a change in his mental status and difficulty breathing. In the emergency room his oxygen saturation was 83% and his d-dimer was over 900. A CT scan angiogram of the lungs showed multiple left lower lobe pulmonary emboli. He has been anticoagulated with enoxaparin.He is not known to have had previous clotting difficulties. 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 Social History: Social History (Last Reviewed 07/31/25 @ 17:42 by TRISH Cole) Alcohol History: Unable to assess alcohol history related to: Unknown Tobacco History: Patient Tobacco Use Status: Never used Tobacco Smoked in Last 30 Days: No Substance Use History: Use of substances other than those prescribed or required for medical reasons : Unknown Advance Directives: Advance Directives: Yes Advance Directives Information Provided: No Advance Directives on File: No Advance Directives Date on File: 05/23/20 Nutrition Assessment: Nutrition Risks: No Nutritional Risk Home Medications and Allergies Current Medications: Current Medications Acetaminophen (Acetaminophen 325 Mg Tablet) 650 mg PO Q6H PRN PRN Reason: Pain, Mild 1-3,fever,headache Atorvastatin Calcium (Atorvastatin Calcium 20 Mg Tablet) 20 mg PO DAILY@1800 [facility] Last Admin: 07/31/25 18:22 Dose: 20 mg Calcium Carbonate (Calcium Carbonate 750 Mg Tab.Chew) 750 mg PO Q4H PRN PRN Reason: Heartburn Carbidopa/Levodopa (Carbidopa/Levodopa 25/100 Tablet) 1 tab PO BID@0900,1800 [facility] Last Admin: 07/31/25 17:59 Dose: 1 tab Clonazepam (Clonazepam 0.5 Mg Tablet) 0.125 mg PO TID PRN PRN Reason: Anxiety Clonazepam (Clonazepam 0.5 Mg Tablet) 0.25 mg PO TID [facility] Last Admin: 07/31/25 17:59 Dose: 0.25 mg Docusate Sodium (Docusate Sodium 100 Mg Capsule) 200 mg PO DAILY@1800 [facility] Last Admin: 07/31/25 17:58 Dose: 200 mg Enoxaparin Sodium (Enoxaparin Sodium 100 Mg/Ml Syringe) 90 mg 1 mg/kg (90 mg) SUBCUT Q12H [facility] Escitalopram Oxalate (Escitalopram Oxalate 5 Mg Tablet) 5 mg PO DAILY [facility] Magnesium Hydroxide (Milk Of Magnesia 30 Ml Oral.Susp) 30 ml PO DAILY PRN PRN Reason: Constipation Melatonin (Melatonin 3 Mg Tablet) 6 mg PO BEDTIME [facility] Memantine (Memantine Hcl 10 Mg Tablet) 10 mg PO BID@0900,1800 [facility] Last Admin: 07/31/25 17:58 Dose: 10 mg Metoprolol Succinate (Metoprolol Succinate Er 100 Mg Tab.Er.24h) 100 mg PO DAILY [facility]; Protocol Mirtazapine (Mirtazapine 7.5 Mg Tablet) 3.75 mg PO BEDTIME [facility] Polyethylene Glycol (Polyethylene Glycol 3350 17 Gm Powd.Pack) 17 gm PO DAILY [facility] Quetiapine Fumarate (Quetiapine Fumarate 25 Mg Tablet) 12.5 mg PO QID [facility] Rivastigmine Tartrate (Rivastigmine Tartrate 1.5 Mg Capsule) 3 mg PO BID@0900,1800 [facility] Sodium Chloride (0.9 % Sodium Chloride Flush 3 Ml Syringe) 3 ml IVFLUSH QSHIFT [facility] Tamsulosin HCl (Tamsulosin Hcl 0.4 Mg Capsule) 0.8 mg PO DAILY@1800 [facility] Last Admin: 07/31/25 17:58 Dose: 0.8 mg Trazodone HCl (Trazodone Hcl 100 Mg Tablet) 200 mg PO BEDTIME [facility] Home Medications ?Medication ?Instructions ?Recorded ?Confirmed ?Type quetiapine 25 mg tablet 12.5 mg PO QID 05/23/20 07/31/25 History tamsulosin 0.4 mg capsule 0.8 mg PO DAILY@1800 05/23/20 07/31/25 H istory docusate sodium 100 mg capsule 200 mg PO DAILY@1800 09/20/20 07/31/25 H istory (Colace) trazodone 100 mg tablet 200 mg PO BEDTIME 09/20/20 07/31/25 Hist ory aspirin 81 mg tablet,delayed 81 mg PO DAILY 07/31/25 07/31/25 History release carbidopa 25 mg-levodopa 100 mg 1 tab PO BID@0900,1800 07/31/25 07/31/25 History tablet (Sinemet) clonazepam 0.5 mg tablet 0.125 mg PO TID PRN Anxiety 07/31/25 History clonazepam 0.5 mg tablet 0.25 mg PO TID 07/31/25 07/31/25 History diclofenac sodium 1 % topical gel 2 g topical DAILY 07/31/25 07/31/25 Hist ory escitalopram oxalate 10 mg tablet 5 mg PO DAILY 07/31/25 07/31/25 History melatonin 5 mg tablet 5 mg PO BEDTIME 07/31/25 07/31/25 Histor y memantine 10 mg tablet 10 mg PO BID@0900,1800 07/31/25 07/31/25 History metoprolol succinate 100 mg 100 mg PO DAILY 07/31/25 07/31/25 Histor y tablet,extended release 24 hr mirtazapine 7.5 mg tablet 3.75 mg PO BEDTIME 07/31/25 07/31/25 His tory polyethylene glycol 3350 17 17 g PO DAILY 07/31/25 07/31/25 History gram/dose oral powder (Miralax) rivastigmine tartrate 3 mg capsule 3 mg PO BID@0900,1800 07/31/25 07/31/25 History simvastatin 40 mg tablet 40 mg PO DAILY@1800 07/31/25 07/31/25 Hi story vitamins A,C,E-enis-bbghid 2,148 1 tab PO BID@0900,1800 07/31/25 07/31/25 History mcg-113 mg-45 mg-17.4 mg tablet (PreserVision AREDS) Allergies Allergy/AdvReac Type Severity Reaction Status Date / Time No Known Allergies Allergy Verified 07/31/25 14:06 Physical Exam Vital signs: Vital Signs Temp 98 F 07/31/25 18:00 Pulse 99 07/31/25 18:00 Resp 24 H 07/31/25 18:00 BP 158/90 H 07/31/25 18:00 Pulse Ox 91 L 07/31/25 18:00 O2 Del Method Nasal Cannula 07/31/25 18:00 O2 Flow Rate 4 07/31/25 18:00 Intake & Output 07/31/25 07/31/25 08/01/25 06:59 18:59 06:59 Other: Weight 88.451 kg Weight 88.451 kg - Constitutional Present: no acute distress - Routine HEENT Exam Head: Present: atraumatic, normal inspection, normocephalic - Routine Neck Exam Present: supple, full ROM - Routine Respiratory Exam Present: decreased breath sounds - Routine Cardiovascular Exam Cardiovascular: Present: RRR - Routine Abdominal Exam Present: diminished bowel sounds - Routine Extremities Exam Present: normal inspection Hem/Onc Consult Result - Labs CBC & Chem 7: 07/31/25 17:37 08/01/25 04:04 Labs: Short CBC 07/31/25 07/31/25 Range/Units 14:20 17:37 WBC 8.3 8.2 (4.8-10.8) X10*3/uL Hgb 17.4 17.3 (14.0-18.0) g/dl Hct 50.4 51.6 (42.0-52.0) % Plt Count 197 204 (160-400) X10*3/uL BMP 07/31/25 07/31/25 14:20 17:37 Sodium 142 Potassium 4.5 Chloride 108 Carbon Dioxide 22 BUN 23 H 21 H Creatinine 1.13 1.08 Calcium 8.8 Liver Function 07/31/25 Range/Units 14:20 Total Bilirubin 0.8 (0.0-1.0) mg/dL Direct Bilirubin 0.3 (0.0-0.5) mg/dL AST 31 (5-37) U/L ALT 41 H (0-40) U/L Alkaline Phosphatase 79 (39-117) U/L Albumin 4.4 (3.5-5.0) g/dL Urine 07/31/25 Range/Units 14:46 Urine Color Yellow Urine Appearance Clear Urine pH 5.0 (5.0-9.0) Ur Specific [place] >= 1.030 H (1.005-1.025) Urine Protein 30 (1+) H (Neg-Trace) mg/dL Urine Glucose (UA) Negative (Negative) mg/dL Assessment and Plan Patient Active problem list reviewed?: Yes (1) Pulmonary embolism Status: Acute Assessment and plan: His d-dimer is elevated as is his BNP. He has been placed on enoxaparin. Not aware of any previous history of clotting abnormalities. He seems stable at this time although he is confused. I will continue him on the heparin for several days and then convert him to apixaban. A thrombophilia evaluation be done. I will follow this patient with you over the weekend. - Time Spent With Patient Time Spent with Patient (in minutes): 20
--- NOTE | 2025-07-31 20:25 | PC.NURSE ---
pharmacy called at this time, requesting pt Exheatheron PO, stated they will bring some to the ED
--- NOTE | 2025-07-31 20:33 | PC.NURSE ---
pharmacy handed medication to this RN approximately this time
--- NOTE | 2025-07-31 20:59 | PC.NURSE ---
@approximately this time, pt requesting PRN Klonopin for pt anxiety, pt medicated per MAR, requesting to hold pt 2100 medication pending effectiveness of PRN medicaton, pt stated she will use call white when pt is ready for nightime medications.
--- NOTE | 2025-07-31 21:06 | PC.NURSE ---
pt switched over into hospital bed at this time, bed alarm armed for safety of pt
[2025-07-31 22:00] VITALS: PULSE 100; RESP 12; RESP 18
--- NOTE | 2025-07-31 23:02 | PC.NURSE ---
pt medicated per MAR
[2025-08-01] VITALS (9 sets, daily range): BP systolic 100–152; BP diastolic 54–82; PULSE 73–93; RESP 16–18; TEMP 36.2–36.9; O2SAT 90–95; BMI 28.3
--- NOTE | 2025-08-01 01:54 | HO.NURTONUR ---
Addendum entered by Marielle Delacruz RN 08/01/25 16:21: Pt on 6lpm via nc, sat around 95%. No significant SOB or diff breathing. at bedside, very involved in care and helpful. Pt noted with diarrhea x 1 today. Held Miralax and Metoprolol for soft BP. LR 500ml bolus given with +effect on BP. Maintenance Fluids infusing LR at 100ml/hr. ECHO has been completed and resulted showing moderate pulmo HTN. Voiding in bedside urinal and up to commode with assist of one ( has been assisting) for the bowel movement. Original Note: Chief Complaint: shortness of breath This is a 69-year-old male, full code, NKA, Yuriykar Diet, w/ a history of cognitive impairment, parkinsonism, hypertension, BPH who was brought in by his due to increased anxiety and more confusion than usual. On arrival in the emergency department he was noted to be hypoxic with an oxygen saturation of 83% on room air. He was placed on 4 L nasal cannula to bring oxygen into the low to mid 90s. History was primarily obtained from the patient's at the bedside due to patient's underlying severe anxiety and cognitive impairment. She reports he has had 6 weeks of shortness of breath which has limited his activity. He is typically very sedentary but he does walk on a treadmill daily, over the past 6 weeks his endurance has gradually decreased until he is was unable to do any walking at all. Is unclear if the patient has been experiencing any chest pain or palpitations. [facility] who ordered an EKG which was reportedly abnormal. That was followed up with an echocardiogram on July 22 which showed evidence of severe pulmonary hypertension. In the ED ddimer was elevated so a CTA was obtained which showed left lower lobe subsegmental pulmonary emboli with borderline findings raising the possibility of developing right ventricular strain. BNP 2057, initial troponin 9.5, repeat pending. There have been no recent surgery, trauma, or travel. No known malignancy. In the ED, the patient was treated with therapeutic Lovenox. Of note patient is very anxious and restless throughout exam, he has been unable to tolerate being on manager monitoring. CXR: Impression: 1. No acute pulmonary disease. 2. Elevated right hemidiaphragm. Head CT: Impression: 1. No acute intracranial abnormalities. Chest CT: Impression: 1. Left lower lobe subsegmental pulmonary emboli, with borderline findings raising the possibility of developing right ventricular strain. Plan: Acute respiratory failure with hypoxia due to left subsegmental pulmonary embolism consult to hematology consult to pulmonary Lovenox for PE Patient will likely require 2 midnight stay in the hospital for management of acute respiratory failure due to PE requiring close cardiac monitoring, supplemental oxygen, specialist evaluation pt has A 20g IV to the left arm, ambulates with assistance of 1-2
[2025-08-01 04:58] LABS: Alanine Aminotransferase 21 U/L (0-40); Albumin Level 3.8 g/dL (3.5-5.0); Alkaline Phosphatase 63 U/L (39-117); Anion Gap 16 (12-20); Aspartate Amino Transferase 29 U/L (5-37); Blood Urea Nitrogen 22 mg/dL (9-16); Calcium 8.3 mg/dL (8.4-10.2); Carbon Dioxide 20 mmol/L (22-29); Chloride 109 mmol/L (96-108); Creatinine Clr Calc Pharmacy 76.8; Estimated Glomerular Filt Rate > 60; Potassium 3.6 mmol/L (3.3-5.1); Sodium 141 mmol/L (135-145); Total Protein 6.2 g/dL (6.5-8.0)
--- NOTE | 2025-08-01 07:00 | CA_ITS ---
Transthoracic Echocardiogram Patient (Last, First, Middle): Song Biggs T Gender: Male Date of : 1955 Age: 69 Procedure Date: 08/01/2025 Procedure Type: Transthoracic Echocardiogram Location: ER Height: 182.88 cm Weight: 88.45 kg BSA: 2.11 m2 Heart Rate: bpm BP: 101 / 54 mmHg Acrylic Fabricator: SB Referring MD: Trinity CHAMBERS Symptoms: new PE Study Quality: Adequate Conclusions: - Normal left ventricular size, thickness, systolic function, and wall motion. The visually estimated ejection fraction is between 55-60%. Diastolic function is normal for age. - Mildly increased right ventricular cavity size. There is low normal right ventricular systolic function. - Moderate pulmonary hypertension is present. Findings Left Ventricle Normal left ventricular size, thickness, systolic function, and wall motion. The visually estimated ejection fraction is between 55-60%. Diastolic function is normal for age. Right Ventricle Mildly increased right ventricular cavity size. There is low normal right ventricular systolic function. Atria The left atrium is normal in size. The right atrium is normal in size. Aortic Valve Normal aortic valve structure and function. There is no aortic valve stenosis. There is no aortic valve regurgitation. Mitral Valve The mitral valve appears normal. There is no mitral valve regurgitation. There is no mitral valve stenosis. Pulmonic Valve The pulmonic valve is likely normal. Tricuspid Valve Normal tricuspid valve structure. There is no tricuspid valve regurgitation. The right ventricular systolic pressure is 52 mmHg. Normal right atrial pressure. Moderate pulmonary hypertension is present. Great Vessels All visible segments of the aorta are normal in size. Venous The inferior vena cava is normal in size and collapses greater than 50% with inspiration. Pericardium/Pleural There is no evidence of pericardial effusion. Prior Study Comparison No prior study available for comparison. Measurements 2D Linear Measurements IVSd: 0.82 0.6-0.9/0.6-1.0 cm LVIDd: 4.53 3.9-5.3/4.2-5.9 cm LVIDd Index: 2.15 2.4-3.2/2.2-3.1 cm/m2 LVIDs: 2.59 2.0-3.6 cm LVPWd: 0.81 0.7-1.1 cm LA Diam: 3.10 2.7-3.8/3.0-4.0 cm LAIDs Index: 1.47 1.5-2.3 cm/m2 LV Mass: 145.94 67-162/88-224 g LV Mass Index: 69.17 43-95/49-115 g/m2 LVOT Diam: 2.00 3.0+(-)1.3 cm 2D Systolic Function EF 4C: 57.20 >55% EF 2C: 38.30 >55% EF BiP: 49.60 >55% Mitral Valve MV Pk E: 0.44 MV PK A: 0.54 MV Decel Time: 210.00 E/A: 0.80 E'Lateral: 5.66 E'Medial: 5.22 E/E' Med: 8.40 E/E' Lat: 7.70 PHT: 61.00 MVA PHT: 3.61 Decel Cataño: 2.08 Aortic Valve AoV Pk Augustine: 0.94 AoV Mn Augustine: 0.68 AoV VTI: 0.16 AoV Pk Grad: 4.00 Aov Mn Grad: 2.00 CARLOS Cont.VTI: 2.93 LVOT LVOT Pk Augustine: 0.75 LVOT Mn Augustine: 0.57 LVOT VTI: 0.15 LVOT Pk Grad: 2.00 LVOT Mn Grad: 1.00 LVOT Diam: 2.00 LVOT Area: 3.14 Diastolic Function MV Pk E: 0.44 MV Pk A: 0.54 E/A: 0.80 E'Medial: 5.22 E/E' Med: 8.40 E' Laterial: 5.66 E/E' Lat: 7.70 Right Ventricle TAPSE (mm): 19.80 TVS' Augustine: 13.80 Tricuspid Valve TR Pk Augustine: 3.03 TR Pk Grad: 37.00 RA Press: 15.00 RVSP: 52.00 Great Vessels Aorta Sinus of Valsalva: 3.20 2.0-3.5 cm Ao Asc: 3.20 2.1-3.4 cm Pulmonary Veins Pulm Vein S/D 1.70 Pulmonary Valve PV Pk Augustine: 0.74 Peak PV Grad: 2.00 Updated in Other Vendor System with Status of Final German Hayes MD electronically signed on 08/01/2025 3:47:13 PM with status of Final
[2025-08-01] MEDS: 0.9 % Sodium Chloride Flush 3 ML SYRINGE IVFLUSH (08:51)
--- NOTE | 2025-08-01 09:28 | PC.NURSE ---
Pt is alert and oriented to self. at bedside. AM meds given, states pt takes AREDs in AM and request Klonopin dose be changed to sooner in evening. Klonopin order noted to have incorrect instructions for 30 min prior to bedtime but scheduled TID, pharmacy made aware of concerns and will adjust. 02 sat 89-90% on 4lpm via nc, increased to 5lpm via nc as unsure if pt will tolerate Oxymask. sat up to 93% on the 5lpm via. No visible SOB. BP soft. Metoprolol held. Miralax held d/t diarrhea last night. NSR on tele. Dr Bingham notified of all above
[2025-08-01] MEDS: Lactated Ringers 500 ML 999 ML IV (10:05)
--- NOTE | 2025-08-01 10:20 | MHC.EDTECH ---
patient stand and assist to use urinal, two person assist, assisted with bedside urinal while this tech helped patient stand and kept steady. Patient cleaned and tucked back into bed.
[2025-08-01] MEDS: Lactated Ringers 1,000 ML 100 ML IVCONT (11:01)
[2025-08-01 11:47] LABS: Glucose, Whole Blood 122 mg/dL (60-115)
--- NOTE | 2025-08-01 11:53 | PC.RT ---
pt has a home 02 eval ordered. Pt admited in the ED and will wait to do after his acute illness is resolving. Will dc order at this time.
[2025-08-01 13:49] LABS: MANUAL DIFF FLAG NO
[2025-08-01 14:08] LABS: Alanine Aminotransferase 15 U/L (0-40); Albumin Level 3.5 g/dL (3.5-5.0); Alkaline Phosphatase 59 U/L (39-117); Anion Gap 12 (12-20); Aspartate Amino Transferase 29 U/L (5-37); Blood Urea Nitrogen 20 mg/dL (9-16); Calcium 8.1 mg/dL (8.4-10.2); Carbon Dioxide 22 mmol/L (22-29); Chloride 110 mmol/L (96-108); Creatinine Clr Calc Pharmacy 85.2; Estimated Glomerular Filt Rate > 60; Hematocrit 46.8 % (42.0-52.0); Hemoglobin 15.6 g/dl (14.0-18.0); Imm Gran Abs Auto 0.02 X10*3/uL (0.00-0.03); Imm Gran Pct Auto 0.5 % (0.0-0.4); Lymphocytes Absolute Auto 1.2 X10*3/uL (1.2-4.9); Mean Corpuscular HGB Conc 33.3 g/dl (31.0-36.0); Mean Corpuscular Hemoglobin 28.3 pg (27.0-33.0); Mean Corpuscular Volume 84.9 fL (80.0-98.0); NRBC Abs Auto 0.000 X10*3/uL (0.0-0.012); NRBC Pct Auto 0.0 /100WBC (0.0-0.2); Platelet Count 168 X10*3/uL (160-400); Potassium 4.0 mmol/L (3.3-5.1); Red Blood Count 5.51 X10*6/uL (4.60-5.80); Sodium 140 mmol/L (135-145); Total Protein 5.9 g/dL (6.5-8.0); White Blood Count 4.1 X10*3/uL (4.8-10.8)
--- NOTE | 2025-08-01 15:21 | P.PNIM_ITS ---
Subjective Subjective Date of Service: 08/01/25 Interval History: asymptomatic today. Found to be more hypoxic and hypotensive this morning on eval by RN. The patient was asleep, awaking appropriately, and communicating with soft voice/ minimally contributory to history. Patient's by bedside - reports he has history of dementia - discussed clinical course and condition. Review of Systems Review of Systems: Yes Unobtainable due to mental condition and Unobtainable due to mental status Physical Exam 2 Exam: Exam: General: Frail-appearing elderly male, alert, not in acute distress. On nasal cannula oxygen. Skin: Seborrheic dermatitis noted on forehead (erythematous, greasy scaling plaques). No rashes, ulcers, or pressure injuries elsewhere. HEENT: Normocephalic, atraumatic. Sclerae anicteric, conjunctivae clear. Oropharynx moist, no lesions. No cervical lymphadenopathy. Neck: Supple, no JVD, no thyromegaly. Cardiovascular: Regular rate and rhythm. No murmurs, rubs, or gallops. Peripheral pulses intact. Respiratory: Mild tachypnea. Breath sounds decreased at bases, no rales, wheezes, or rhonchi. No use of accessory muscles. On nasal cannula O?. Abdomen: Soft, non-tender, non-distended. Bowel sounds present. No hepatosplenomegaly. Extremities: No edema, no calf tenderness, no clubbing or cyanosis. Neurologic: Alert, oriented to person and place. Answers questions inconsistently. No focal deficits. Cranial nerves II-XII grossly intact. No tremor or rigidity noted. Psychiatric: Anxious, restless, but cooperative. Affect appropriate to situation. Vital Signs: Vital Signs: Last Vital Signs Temp 98.4 F 08/01/25 06:22 Pulse 93 08/01/25 13:39 Resp 16 08/01/25 13:39 BP 126/76 08/01/25 13:39 Pulse Ox 95 08/01/25 13:39 O2 Del Method Nasal Cannula 08/01/25 13:39 O2 Flow Rate 6 08/01/25 13:39 BMI result Body Mass Index 26.4 Objective Data Active Medications Acetaminophen (Acetaminophen 325 Mg Tablet) 650 mg PO Q6H PRN PRN Reason: Pain, Mild 1-3,fever,headache Atorvastatin Calcium (Atorvastatin Calcium 20 Mg Tablet) 20 mg PO DAILY@1800 MARI Last Admin: 07/31/25 18:22 Dose: 20 mg Documented By: VICTORINA Calcium Carbonate (Calcium Carbonate 750 Mg Tab.Chew) 750 mg PO Q4H PRN PRN Reason: Heartburn Carbidopa/Levodopa (Carbidopa/Levodopa 25/100 Tablet) 1 tab PO BID@0900,1800 [facility] Last Admin: 08/01/25 08:35 Dose: 1 tab Documented By: FLORENTINO Clonazepam (Clonazepam 0.5 Mg Tablet) 0.125 mg PO TID PRN PRN Reason: Anxiety Last Admin: 07/31/25 20:53 Dose: 0.125 mg Documented By: FERNANDO Clonazepam (Clonazepam 0.5 Mg Tablet) 0.25 mg PO TID@1000,1400,1800 [facility] Last Admin: 08/01/25 13:35 Dose: 0.25 mg Documented By: FLORENTINO Docusate Sodium (Docusate Sodium 100 Mg Capsule) 200 mg PO DAILY@1800 [facility] Last Admin: 07/31/25 17:58 Dose: 200 mg Documented By: VICTORINA Enoxaparin Sodium (Enoxaparin Sodium 100 Mg/Ml Syringe) 90 mg 1 mg/kg (90 mg) SUBCUT Q12H [facility] Last Admin: 08/01/25 08:38 Dose: 90 mg Documented By: FLORENTINO Escitalopram Oxalate (Escitalopram Oxalate 5 Mg Tablet) 5 mg PO DAILY [facility] Last Admin: 08/01/25 08:36 Dose: 5 mg Documented By: FLORENTINO Lactated Ringer's (Lr) 1,000 mls @ 100 mls/hr IVCONT .Q10H [facility] Stop: 08/01/25 19:59 Last Admin: 08/01/25 11:01 Dose: 100 mls/hr Documented By: FLORENTINO Magnesium Hydroxide (Milk Of Magnesia 30 Ml Oral.Susp) 30 ml PO DAILY PRN PRN Reason: Constipation Melatonin (Melatonin 3 Mg Tablet) 6 mg PO BEDTIME [facility] Last Admin: 07/31/25 22:55 Dose: 6 mg Documented By: FERNANDO Memantine (Memantine Hcl 10 Mg Tablet) 10 mg PO BID@0900,1800 [facility] Last Admin: 08/01/25 08:37 Dose: 10 mg Documented By: FLORENTINO Metoprolol Succinate (Metoprolol Succinate Er 100 Mg Tab.Er.24h) 100 mg PO DAILY [facility]; Protocol Last Admin: 08/01/25 08:39 Dose: Not Given Documented By: FLORENTINO Non-Admin Reason: Decreased Blood Pressure Mirtazapine (Mirtazapine 7.5 Mg Tablet) 3.75 mg PO BEDTIME [facility] Last Admin: 07/31/25 22:55 Dose: 3.75 mg Documented By: FERNANDO Polyethylene Glycol (Polyethylene Glycol 3350 17 Gm Powd.Pack) 17 gm PO DAILY [facility] Last Admin: 08/01/25 08:39 Dose: Not Given Documented By: FLORENTINO Non-Admin Reason: had diarhea per Quetiapine Fumarate (Quetiapine Fumarate 25 Mg Tablet) 12.5 mg PO QID [facility] Last Admin: 08/01/25 13:36 Dose: 12.5 mg Documented By: FLORENTINO Rivastigmine Tartrate (Rivastigmine Tartrate 1.5 Mg Capsule) 3 mg PO BID@0900,1800 [facility] Last Admin: 08/01/25 08:50 Dose: 3 mg Documented By: FLORENTINO Sodium Chloride (0.9 % Sodium Chloride Flush 3 Ml Syringe) 3 ml IVFLUSH QSHIFT [facility] Last Admin: 08/01/25 08:51 Dose: 3 ml Documented By: FLORENTINO Tamsulosin HCl (Tamsulosin Hcl 0.4 Mg Capsule) 0.8 mg PO DAILY@1800 [facility] Last Admin: 07/31/25 17:58 Dose: 0.8 mg Documented By: VICTORINA Trazodone HCl (Trazodone Hcl 100 Mg Tablet) 200 mg PO BEDTIME [facility] Last Admin: 07/31/25 22:55 Dose: 200 mg Documented By: FERNANDO Labs 08/01/25 13:45 08/01/25 13:45 Labs: Laboratory Results - last 24 hr 07/31/25 07/31/25 07/31/25 13:42 14:20 17:37 MCV 84.2 MCH 28.2 MCHC 33.5 RDW 13.6 Plt Count 204 MPV 9.1 L Immature Gran % (Auto) Neut % (Auto) Lymph % (Auto) [place] % (Auto) Eos % (Auto) Baso % (Auto) Lymph # (Auto) [place] # (Auto) Eos # (Auto) Baso # (Auto) Abs Immat Gran (auto) Absolute Neuts (auto) Absolute Nucleated RBC 0.000 Nucleated RBC % (auto) 0.0 Anion Gap Estim Creat Clear Calc 71.8 Estimated GFR > 60 POC Glucose 122 H Random Glucose Calcium Total Bilirubin AST ALT Alkaline Phosphatase Troponin I High Sens 10.8 NT-Pro-B Natriuret Pep 2058.5 H Total Protein Albumin 08/01/25 08/01/25 04:04 13:45 MCV 84.9 MCH 28.3 MCHC 33.3 RDW 13.5 Plt Count 168 MPV 9.1 L Immature Gran % (Auto) 0.5 H Neut % (Auto) 51.6 Lymph % (Auto) 28.6 [place] % (Auto) 14.4 H Eos % (Auto) 4.2 H Baso % (Auto) 0.7 Lymph # (Auto) 1.2 [place] # (Auto) 0.6 Eos # (Auto) 0.2 Baso # (Auto) 0.0 Abs Immat Gran (auto) 0.02 Absolute Neuts (auto) 2.1 Absolute Nucleated RBC 0.000 Nucleated RBC % (auto) 0.0 Anion Gap 16 12 Estim Creat Clear Calc 76.8 85.2 Estimated GFR > 60 > 60 POC Glucose Random Glucose 102 108 Calcium 8.3 L 8.1 L Total Bilirubin 0.6 0.5 AST 29 29 ALT 21 15 Alkaline Phosphatase 63 59 Troponin I High Sens NT-Pro-B Natriuret Pep Total Protein 6.2 L 5.9 L Albumin 3.8 3.5 Assessment and Plan (1) Pulmonary embolism: Status: Acute (2) Altered mental status: Status: Acute (3) Hypoxia: Status: Acute (4) Infected inclusion cyst: Status: Acute (5) Cor pulmonale: Status: Acute (6) Pulmonary hypertension: Status: Acute (7) Hypotension: Status: Acute Plan 69-year-old male with history of cognitive impairment, parkinsonism, hypertension, hyperlipidemia, BPH, and severe anxiety/depression, admitted for acute hypoxic respiratory failure secondary to left lower lobe subsegmental pulmonary embolism with evidence of severe pulmonary hypertension and right heart strain, now with transient hypotension and hypoxia requiring increased oxygen and IV fluids, currently hemodynamically improved, pending further cardiac evaluation. Acute Pulmonary Embolism with Hypoxic Respiratory Failure and Right Heart Strain Clinical Course: Patient presented with 6 weeks of progressive dyspnea, found to be hypoxic (O2 sat 83% on RA) and diagnosed with left lower lobe subsegmental PE on CTA. BNP >2000, initial troponin 9.5, outpatient echo with severe pulmonary hypertension. Today, developed hypotension (SBP 90s) and hypoxia (O2 sat 88-90% on 4L), improved after 500cc IV NS bolus to SBP 126/76, HR 93, O2 sat 95% on 5L. No acute distress on exam. Stat ECHO pending to assess for worsening RV strain/cor pulmonale. PESI score high risk for decompensation. * Plan: * Continue therapeutic enoxaparin (1 mg/kg BID) for acute PE. * Monitor for clinical decompensation (vitals q2-4h, continuous pulse oximetry, telemetry). * Maintain O2 to keep SpO2 >92%; titrate as needed. * Repeat ECHO stat to assess for RV dysfunction/cor pulmonale. * Order bilateral lower extremity venous duplex ultrasound to evaluate for DVT as potential source of embolism. * Monitor for signs of shock, RV failure, or need for escalation (consider ICU if instability recurs). * Hematology and pulmonary consults following. * Thrombophilia workup as per Hem/Onc. * Transition to apixaban when stable and able to take PO reliably. * Monitor for bleeding complications. Hypotension (Resolved) Clinical Course: Developed transient hypotension (SBP 90s) with hypoxia, improved rapidly after 500cc IV NS bolus. No evidence of ongoing shock or distress. * Plan: * Monitor BP and hemodynamics closely. * Assess volume status regularly; avoid fluid overload given pulmonary hypertension. * Hold further IV fluids unless recurrent hypotension or evidence of hypovolemia. * Reassess after ECHO for further management. Severe Pulmonary Hypertension / Suspected Cor Pulmonale Clinical Course: Known severe pulmonary hypertension on outpatient echo; concern for RV strain in setting of acute PE. Stat ECHO pending. * Plan: * Stat ECHO to assess RV function and pulmonary pressures. * Continue to avoid excessive IV fluids. * Consult pulmonary for management recommendations. * Monitor for arrhythmias, worsening hypoxia, or signs of RV failure. Cognitive Impairment / Parkinsonism Clinical Course: Baseline cognitive impairment and parkinsonism, worsened confusion on admission, now at baseline per . No acute neurologic deficits on exam. * Plan: * Continue home medications (carbidopa/levodopa, memantine, rivastigmine). * Monitor for delirium; minimize sedating medications. * Reorient as needed; involve family in care. Anxiety/Depression Clinical Course: Severe anxiety and depression, baseline medications continued. * Plan: * Continue home psychiatric medications. * Minimize environmental stressors. * Consider psych consult if agitation or mood symptoms worsen. Hypertension Clinical Course: BP elevated on admission, now stable post-fluid resuscitation. * Plan: * Resume home metoprolol as tolerated. * Monitor BP closely; adjust antihypertensives as needed. Hyperlipidemia Clinical Course: On statin therapy. * Plan: * Continue statin (atorvastatin or simvastatin as per formulary/med rec). BPH Clinical Course: On tamsulosin, no acute urinary symptoms. * Plan: * Continue tamsulosin. Constipation Clinical Course: On docusate, polyethylene glycol, and PRN magnesium hydroxide. * Plan: * Continue bowel regimen. * Monitor for ileus or constipation. QUALITY [employer] * VTE: Therapeutic anticoagulation (enoxaparin) initiated; bilateral LE duplex US ordered * CODE STATUS: Full code * DIET: Regular Total time managing care of this patient today: 45 minutes. Quality Stroke Does the patient have a stroke diagnosis?: No VTE Prior VTE?: No VTE Risk Level:: Medical - moderate - high VTE Device Contraindication: Treatment Not Indicated VTE Drug Contraindication: N/A - Med Ordered
--- NOTE | 2025-08-01 15:50 | P.CONPL_ITS ---
History of Present Illness History of Present Illness Consult date: 08/01/25 Chief complaint: Acute hypoxic respiratory failure, subsegmental PE Narrative: 69-year-old gentleman with underlying Parkinson disorder, cognitive impairment, hypertension, BPH admitted on 07/30/2025 with acute hypoxic respiratory failure and progressive dyspnea over last month and a half. On workup patient was noted to have left lower lobe subsegmental pulmonary emboli in his CT angiogram, elevated BNP, but essentially flat troponin. Patient now requires 6-8 L of supplemental oxygen to maintain normal oximetry. He did have an outpatient echocardiogram at an outside facility approximately 10 days prior which apparently showed significant pulmonary hypertension. Review of Systems 2 Constitutional: Constitutional: Denies daytime sleepiness, Denies excessive sweating, Denies fatigue, Denies fever(s), Denies lethargy, Denies malaise, Denies night sweats, Denies snoring and Denies weight loss Eyes: Eyes: Denies blurry vision and Denies itchy eyes ENT: Denies nasal congestion, Denies post nasal drip, Denies sinus pain, Denies sinus pressure and Denies other ( Thrush) Cardiovascular: Cardiovascular: Denies chest pain, Denies pedal edema, Reports dyspnea, Reports dyspnea on exertion, Denies orthopnea and Denies paroxysmal nocturnal dyspnea Respiratory: Respiratory: Denies cough, Denies hemoptysis, Denies excessive phlegm production, Reports dyspnea, Reports dyspnea on exertion, Denies snoring and Denies wheezing Gastrointestinal: Gastrointestinal: Denies abdominal pain and Denies heartburn Musculoskeletal: Musculoskeletal: Denies myalgias, Denies arthralgias and Denies joint swelling Integumentary/Breasts: Skin/Breast: Denies rash Neurologic: Denies seizure-like activity Psychiatric: Psychiatric: Denies abnormal sleep pattern and Denies anxiety Endocrine: Endocrine: Denies excessive sweating, Denies fatigue and Denies heat intolerance Hematologic/Lymphatic: Hematologic/Lymphatic: Denies easy bruising Allergic/Immunologic: Allergic/Immunologic: Denies itchy eyes, Denies seasonal rhinorrhea and Denies wheezing PMFSH Past Medical History Medical History Infected inclusion cyst 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 Anxiety as acute reaction to exceptional stress Depression Social History Social History Unable to assess alcohol history related to: Unknown Patient Tobacco Use Status: Never used Tobacco Smoked in Last 30 Days: No Use of substances other than those prescribed or required for medical reasons: Unknown Advance Directives: Yes Advance Directives Information Provided: No Advance Directives on File: No Advance Directives Date on File: 05/23/20 Nutrition Risks: No Nutritional Risk Meds Allergies Allergy/AdvReac Type Severity Reaction Status Date / Time No Known Allergies Allergy Verified 07/31/25 14:06 Active Medications: Current Medications Acetaminophen (Acetaminophen 325 Mg Tablet) 650 mg PO Q6H PRN PRN Reason: Pain, Mild 1-3,fever,headache Atorvastatin Calcium (Atorvastatin Calcium 20 Mg Tablet) 20 mg PO DAILY@1800 [facility] Last Admin: 07/31/25 18:22 Dose: 20 mg Calcium Carbonate (Calcium Carbonate 750 Mg Tab.Chew) 750 mg PO Q4H PRN PRN Reason: Heartburn Carbidopa/Levodopa (Carbidopa/Levodopa 25/100 Tablet) 1 tab PO BID@0900,1800 [facility] Last Admin: 08/01/25 08:35 Dose: 1 tab Clonazepam (Clonazepam 0.5 Mg Tablet) 0.125 mg PO TID PRN PRN Reason: Anxiety Last Admin: 07/31/25 20:53 Dose: 0.125 mg Clonazepam (Clonazepam 0.5 Mg Tablet) 0.25 mg PO TID@1000,1400,1800 [facility] Last Admin: 08/01/25 13:35 Dose: 0.25 mg Docusate Sodium (Docusate Sodium 100 Mg Capsule) 200 mg PO DAILY@1800 [facility] Last Admin: 07/31/25 17:58 Dose: 200 mg Enoxaparin Sodium (Enoxaparin Sodium 100 Mg/Ml Syringe) 90 mg 1 mg/kg (90 mg) SUBCUT Q12H [facility] Last Admin: 08/01/25 08:38 Dose: 90 mg Escitalopram Oxalate (Escitalopram Oxalate 5 Mg Tablet) 5 mg PO DAILY [facility] Last Admin: 08/01/25 08:36 Dose: 5 mg Lactated Ringer's (Lr) 1,000 mls @ 100 mls/hr IVCONT .Q10H [facility] Stop: 08/01/25 19:59 Last Admin: 08/01/25 11:01 Dose: 100 mls/hr Magnesium Hydroxide (Milk Of Magnesia 30 Ml Oral.Susp) 30 ml PO DAILY PRN PRN Reason: Constipation Melatonin (Melatonin 3 Mg Tablet) 6 mg PO BEDTIME [facility] Last Admin: 07/31/25 22:55 Dose: 6 mg Memantine (Memantine Hcl 10 Mg Tablet) 10 mg PO BID@0900,1800 [facility] Last Admin: 08/01/25 08:37 Dose: 10 mg Metoprolol Succinate (Metoprolol Succinate Er 100 Mg Tab.Er.24h) 100 mg PO DAILY [facility]; Protocol Last Admin: 08/01/25 08:39 Dose: Not Given Mirtazapine (Mirtazapine 7.5 Mg Tablet) 3.75 mg PO BEDTIME [facility] Last Admin: 07/31/25 22:55 Dose: 3.75 mg Polyethylene Glycol (Polyethylene Glycol 3350 17 Gm Powd.Pack) 17 gm PO DAILY [facility] Last Admin: 08/01/25 08:39 Dose: Not Given Quetiapine Fumarate (Quetiapine Fumarate 25 Mg Tablet) 12.5 mg PO QID [facility] Last Admin: 08/01/25 13:36 Dose: 12.5 mg Rivastigmine Tartrate (Rivastigmine Tartrate 1.5 Mg Capsule) 3 mg PO BID@0900,1800 [facility] Last Admin: 08/01/25 08:50 Dose: 3 mg Sodium Chloride (0.9 % Sodium Chloride Flush 3 Ml Syringe) [facility] Last Admin: 08/01/25 08:51 Dose: 3 ml Tamsulosin HCl (Tamsulosin Hcl 0.4 Mg Capsule) 0.8 mg PO DAILY@1800 [facility] Last Admin: 07/31/25 17:58 Dose: 0.8 mg Trazodone HCl (Trazodone Hcl 100 Mg Tablet) 200 mg PO BEDTIME [facility] Last Admin: 07/31/25 22:55 Dose: 200 mg Home Medications ?Medication ?Instructions ?Recorded ?Confirmed ?Last Taken ?Type quetiapine 25 mg tablet 12.5 mg PO QID 05/23/2007/18 Unknown History tamsulosin 0.4 mg capsule 0.8 mg PO DAILY@1800 0 07/31/25 Unknown History docusate sodium 100 mg capsule 200 mg PO DAILY@1800 07/31/25 Unknown History (Colace) trazodone 100 mg tablet 200 mg PO BEDTIME 09/20/20 1 10/01/24 Unknown History aspirin 81 mg tablet,delayed 81 mg PO DAILY 07/31/25 1 10/01/24 Unknown History release carbidopa 25 mg-levodopa 100 mg 1 tab PO BID@0900,1800 07/31/25 07/31/25 Unknown History tablet (Sinemet) clonazepam 0.5 mg tablet 0.125 mg PO TID PRN Anxiety 07/31/25 07/31/25 Unknown History clonazepam 0.5 mg tablet 0.25 mg PO TID@1000,1400,180 0 07/31/25 08/01/25 Unknown History diclofenac sodium 1 % topical gel 2 g topical DAILY 07/31/25 Unknown History escitalopram oxalate 10 mg tablet 5 mg PO DAILY 07/31/25 Unknown History melatonin 5 mg tablet 5 mg PO BEDTIME 07/31/25 Unknown History memantine 10 mg tablet 10 mg PO BID@0900,1800 07/3107/31/25 Unknown History metoprolol succinate 100 mg 100 mg PO DAILY 07/31/25 1 10/01/24 Unknown History tablet,extended release 24 hr mirtazapine 7.5 mg tablet 3.75 mg PO BEDTIME 07/31/25 07/31/25 Unknown History polyethylene glycol 3350 17 17 g PO DAILY 07/31/25 Unknown History gram/dose oral powder (Miralax) rivastigmine tartrate 3 mg capsule 3 mg PO BID@0900,18 00 07/31/25 07/31/25 Unknown History simvastatin 40 mg tablet 40 mg PO DAILY@1800 07/31/25 07/31/25 Unknown History vitamins A,C,V-njak-iffkar 2,148 1 tab PO BID@0900,180 0 07/31/25 07/31/25 Unknown History mcg-113 mg-45 mg-17.4 mg tablet (PreserVision AREDS) Physical Exam 2 Vital Signs: Vital Signs: Last Vital Signs Temp 98.4 F 08/01/25 06:22 Pulse 93 08/01/25 13:39 Resp 16 08/01/25 13:39 BP 126/76 08/01/25 13:39 Pulse Ox 95 08/01/25 13:39 O2 Del Method Nasal Cannula 08/01/25 13:39 O2 Flow Rate 6 08/01/25 13:39 BMI result Body Mass Index 26.4 Const: General: no acute distress and alert Nutritional Appearance: not obese Orientation/consciousness: Other orientation findings ( oriented) HEENT: Head: Yes atraumatic Eyes: General: appearance normal, both eyes and all related structures S clerae: sclerae normal EOM: EOMs intact bilaterally Neck: Neck: Yes supple Lymphatic: no lymphadenopathy noted Resp: Effort & Inspection: normal respiratory effort and no use of accessory muscles Auscultation: clear to auscultation bilaterally Cardio: Rate: regular rate Rhythm: regular rhythm Heart sounds: no gallops, no murmurs and no rubs Skin: General skin exam: other ( warm) Extrem: General: No clubbing, No cyanosis and No edema Results Laboratory Findings 08/01/25 13:45 08/01/25 13:45 Abnormal lab findings: Abnormal Labs 07/31/25 07/31/25 07/31/25 13:42 14:20 14:46 WBC RBC 6.08 H MPV 8.6 L Immature Gran % (Auto) Neut % (Auto) 90.2 H Lymph % (Auto) 4.3 L [place] % (Auto) Eos % (Auto) Lymph # (Auto) 0.4 L Chloride Carbon Dioxide BUN 23 H POC Glucose 122 H Random Glucose 121 H Calcium ALT 41 H NT-Pro-B Natriuret Pep 2058.5 H Total Protein Ur Specific Lloyd >= 1.030 H Urine Protein 30 (1+) H Urine Blood Trace H Ur Leukocyte Esterase Trace H Urine RBC 6-10 H 07/31/25 08/01/25 08/01/25 17:37 04:04 13:45 WBC 4.1 L RBC 6.13 H MPV 9.1 L 9.1 L Immature Gran % (Auto) 0.5 H Neut % (Auto) Lymph % (Auto) [place] % (Auto) 14.4 H Eos % (Auto) 4.2 H Lymph # (Auto) Chloride 109 H 110 H Carbon Dioxide 20 L BUN 21 H 22 H 20 H POC Glucose Random Glucose Calcium 8.3 L 8.1 L ALT NT-Pro-B Natriuret Pep Total Protein 6.2 L 5.9 L Ur Specific [place] Urine Protein Urine Blood Ur Leukocyte Esterase Urine RBC Assessment and Plan (1) Acute hypoxic respiratory failure: Status: Acute (2) Pulmonary embolism: Status: Acute Plan Impression: 69-year-old gentleman hospitalized with dyspnea and acute hypoxic respiratory failure requiring 6-8 L of supplemental oxygen to maintain normal oximetry and also noted to have subsegmental left lower lobe pulmonary emboli. 2D echocardiogram is pending at this time. It is extremely unlikely for such a small burden of pulmonary emboli in subsegmental arteries left lower lobe to cause significant hypoxemia or pulmonary hypertension. Recommendation: Will review pending echocardiogram and consider pulmonary hypertension therapies. Procedures Date of Service Date of Service: 08/01/25
--- NOTE | 2025-08-01 16:39 | MHC.CM.PN ---
PT WITH INCREASED CONFUSION, CM CALLED PTS S/O, SHARON AT THE NUMBER ON FILE SHE REPORTS SHE LIVES WITH THE PT AND HE HAD NO REGULAR SERVICES GUIDE EXCURSION SHE SAYS HE IS [facility], SO SHE COULD HAVE THEM IF NEEDED PT HAS A WALKER, BUT WAS NOT USING GUIDE EXCURSION PCP: EUFEMIA KEBEDE COPY OF HCP REQUESTED IMM DELIVERED DCP: HOME ? [facility]SP[facility]
--- NOTE | 2025-08-01 17:36 | PC.NURSE ---
to bring AREDs from home.
--- NOTE | 2025-08-01 22:57 | PC.NURSE ---
Pt's son Jerel Biggs [phone] If there is status change, he would like to get a phone call
[2025-08-02] VITALS (7 sets, daily range): BP systolic 105–137; BP diastolic 53–87; PULSE 68–90; RESP 14–20; TEMP 36–36.7; O2SAT 85–94
[2025-08-02] MEDS: Metoprolol Succinate ER 100 MG TAB.ER.24H PO (08:05)
[2025-08-02] MEDS: 0.9 % Sodium Chloride Flush 3 ML SYRINGE IVFLUSH ×2 (08:07→17:42)
--- NOTE | 2025-08-02 09:03 | P.PNIM_ITS ---
Subjective Subjective Date of Service: 08/02/25 Interval History: Patient seen and examined at bedside this morning, patient at this time continues to be confused, continues with supplemental oxygen at 5 L. echocardiogram showing pulmonary hypertension. Patient mentions that he was previously diagnosed with VALENTINO however has not used any CPAP machine at home. Review of Systems Review of Systems: Yes Unobtainable due to mental status Physical Exam 2 Exam: Exam: General: AxOx2, In respiratory distress on 6 L of oxygen Head: AT/NC ENT: Moist mucous membranes Neck: supple CVS; RRR, S1 S2 normal Lungs: decreased bilateral breath sounds Abd: Soft non tender, non distended Ext: No edema and no calf tenderness MSK: moving all 4 limbs Skin: No cyanosis or edema Psych: Cooperative with exam Neurology: no focal deficit Vital Signs: Vital Signs: Last Vital Signs Temp 97.3 F 08/02/25 06:56 Pulse 74 08/02/25 06:56 Resp 20 08/02/25 06:56 BP 113/68 08/02/25 06:56 Pulse Ox 93 08/02/25 06:56 O2 Del Method Nasal Cannula 08/02/25 06:56 O2 Flow Rate 5 08/02/25 06:56 BMI result Body Mass Index 28.3 Objective Data Active Medications Acetaminophen (Acetaminophen 325 Mg Tablet) 650 mg PO Q6H PRN PRN Reason: Pain, Mild 1-3,fever,headache Atorvastatin Calcium (Atorvastatin Calcium 20 Mg Tablet) 20 mg PO DAILY@1800 [facility] Last Admin: 08/01/25 17:18 Dose: 20 mg Documented By: FLORENTINO Calcium Carbonate (Calcium Carbonate 750 Mg Tab.Chew) 750 mg PO Q4H PRN PRN Reason: Heartburn Carbidopa/Levodopa (Carbidopa/Levodopa 25/100 Tablet) 1 tab PO BID@0900,1800 [facility] Last Admin: 08/02/25 08:06 Dose: 1 tab Documented By: BRIAN Clonazepam (Clonazepam 0.5 Mg Tablet) 0.125 mg PO TID PRN PRN Reason: Anxiety Last Admin: 07/31/25 20:53 Dose: 0.125 mg Documented By: FERNANDO Clonazepam (Clonazepam 0.5 Mg Tablet) 0.25 mg PO TID@1000,1400,1800 [facility] Last Admin: 08/01/25 17:19 Dose: 0.25 mg Documented By: FLORENTINO Docusate Sodium (Docusate Sodium 100 Mg Capsule) 200 mg PO DAILY@1800 [facility] Last Admin: 08/01/25 17:25 Dose: Not Given Documented By: FLORENTINO Non-Admin Reason: diarrhea Enoxaparin Sodium (Enoxaparin Sodium 100 Mg/Ml Syringe) 90 mg 1 mg/kg (90 mg) SUBCUT Q12H [facility] Last Admin: 08/02/25 06:08 Dose: 90 mg Documented By: RICK Escitalopram Oxalate (Escitalopram Oxalate 5 Mg Tablet) 5 mg PO DAILY [facility] Last Admin: 08/02/25 08:06 Dose: 5 mg Documented By: BRIAN Magnesium Hydroxide (Milk Of Magnesia 30 Ml Oral.Susp) 30 ml PO DAILY PRN PRN Reason: Constipation Melatonin (Melatonin 3 Mg Tablet) 6 mg PO BEDTIME [facility] Last Admin: 08/01/25 22:27 Dose: 6 mg Documented By: RICK Memantine (Memantine Hcl 10 Mg Tablet) 10 mg PO BID@0900,1800 [facility] Last Admin: 08/02/25 08:06 Dose: 10 mg Documented By: BRIAN Metoprolol Succinate (Metoprolol Succinate Er 100 Mg Tab.Er.24h) 100 mg PO DAILY [facility]; Protocol Last Admin: 08/02/25 08:05 Dose: 100 mg Documented By: BRIAN Mirtazapine (Mirtazapine 7.5 Mg Tablet) 3.75 mg PO BEDTIME [facility] Last Admin: 08/01/25 22:29 Dose: 3.75 mg Documented By: RICK Polyethylene Glycol (Polyethylene Glycol 3350 17 Gm Powd.Pack) 17 gm PO DAILY [facility] Last Admin: 08/02/25 08:06 Dose: Not Given Documented By: BRIAN Non-Admin Reason: Patient Refused Quetiapine Fumarate (Quetiapine Fumarate 25 Mg Tablet) 12.5 mg PO QID [facility] Last Admin: 08/02/25 08:06 Dose: 12.5 mg Documented By: BRIAN Rivastigmine Tartrate (Rivastigmine Tartrate 1.5 Mg Capsule) 3 mg PO BID@0900,1800 [facility] Last Admin: 08/02/25 08:05 Dose: 3 mg Documented By: BRIAN Sodium Chloride (0.9 % Sodium Chloride Flush 3 Ml Syringe) 3 ml IVFLUSH QSHIFT [facility] Last Admin: 08/02/25 08:07 Dose: 3 ml Documented By: BRIAN Tamsulosin HCl (Tamsulosin Hcl 0.4 Mg Capsule) 0.8 mg PO DAILY@1800 [facility] Last Admin: 08/01/25 17:18 Dose: 0.8 mg Documented By: FLORENTINO Trazodone HCl (Trazodone Hcl 100 Mg Tablet) 200 mg PO BEDTIME [facility] Last Admin: 08/01/25 22:27 Dose: 200 mg Documented By: RICK Labs 08/01/25 13:45 08/01/25 13:45 Labs: Laboratory Results - last 24 hr 07/31/25 08/01/25 13:42 13:45 MCV 84.9 MCH 28.3 MCHC 33.3 RDW 13.5 Plt Count 168 MPV 9.1 L Immature Gran % (Auto) 0.5 H Neut % (Auto) 51.6 Lymph % (Auto) 28.6 [place] % (Auto) 14.4 H Eos % (Auto) 4.2 H Baso % (Auto) 0.7 Lymph # (Auto) 1.2 [place] # (Auto) 0.6 Eos # (Auto) 0.2 Baso # (Auto) 0.0 Abs Immat Gran (auto) 0.02 Absolute Neuts (auto) 2.1 Absolute Nucleated RBC 0.000 Nucleated RBC % (auto) 0.0 Anion Gap 12 Estim Creat Clear Calc 85.2 Estimated GFR > 60 POC Glucose 122 H Random Glucose 108 Calcium 8.1 L Total Bilirubin 0.5 AST 29 ALT 15 Alkaline Phosphatase 59 Total Protein 5.9 L Albumin 3.5 Microbiology Microbiology Results: Microbiology 07/31/25 14:36 Blood Culture - Preliminary Blood - Venous No growth after 24 hours. 07/31/25 14:20 Blood Culture - Preliminary Blood - Venous No growth after 24 hours. Assessment and Plan (1) Pulmonary embolism: Status: Acute (2) Altered mental status: Status: Acute (3) Hypoxia: Status: Acute (4) Infected inclusion cyst: Status: Acute (5) Cor pulmonale: Status: Acute (6) Pulmonary hypertension: Status: Acute (7) Hypotension: Status: Acute Plan 69-year-old male with history of cognitive impairment, parkinsonism, hypertension, hyperlipidemia, BPH, and severe anxiety/depression, admitted for acute hypoxic respiratory failure secondary to left lower lobe subsegmental pulmonary embolism with evidence of severe pulmonary hypertension and right heart strain, now with transient hypotension and hypoxia requiring increased oxygen and IV fluids, currently hemodynamically improved, pending further cardiac evaluation. Acute Pulmonary Embolism with Acute Hypoxic Respiratory Failure on 6L of oxygen at this time -imaging reviewed, unable to have thrombectomy done -Continue therapeutic enoxaparin (1 mg/kg BID) for acute PE. - Monitor for clinical decompensation (vitals q2-4h, continuous pulse oximetry, telemetry). - Maintain O2 to keep SpO2 >92%; titrate as needed. - Monitor for signs of shock, RV failure, or need for escalation (consider ICU if instability recurs). - Hematology and pulmonary consults following. - Thrombophilia workup as per Hem/Onc. - Transition to apixaban when stable and able to take PO reliably. - Monitor for bleeding complications. - ABG ordered Pulmonary Hypertension - TTE reviewed - Continue to avoid excessive IV fluids. - Consult pulmonary for management recommendations. - Monitor for arrhythmias, worsening hypoxia, or signs of RV failure. Cognitive Impairment / Parkinsonism - Continue home medications (carbidopa/levodopa, memantine, rivastigmine). - Monitor for delirium; minimize sedating medications. - Reorient as needed; involve family in care. Anxiety/Depression - Continue home psychiatric medications. - Minimize environmental stressors. - Consider psych consult if agitation or mood symptoms worsen. Hypertension, chronic - resume BP meds and adjust accordingly Hyperlipidemia, chronic - Continue statin (atorvastatin or simvastatin as per formulary/med rec). BPH, chronic - Continue tamsulosin. Constipation - Continue bowel regimen. - Monitor for ileus or constipation. [employer] * VTE: Therapeutic anticoagulation (enoxaparin) * CODE STATUS: Full code * DIET: Regular Total time managing care of this patient today: 45 minutes. Quality Stroke Does the patient have a stroke diagnosis?: No VTE Prior VTE?: No VTE Risk Level:: Medical - moderate - high VTE Device Contraindication: Treatment Not Indicated VTE Drug Contraindication: N/A - Med Ordered
[2025-08-02 09:36] LABS: VBG HCO3 25 mmol/L (22-26); VBG O2 % Saturation 85.0 %
[2025-08-02 11:55] LABS: Chlamydia pneumoniae PCR Not Detected (Not Detect.); Coronavirus 229E PCR Not Detected (Not Detect.); Coronavirus HKU1 PCR Not Detected (Not Detect.); Coronavirus NL63 PCR Not Detected (Not Detect.); Coronavirus OC43 PCR Not Detected (Not Detect.); RSV PCR Not Detected (Not Detect.); Rhino/Enterovirus PCR Not Detected (Not Detect.)
[2025-08-02 12:31] LABS: Influenza A H1 PCR Not Detected (Not Detect.); Influenza A H1-2009 PCR Not Detected (Not Detect.); Influenza A H3 PCR Not Detected (Not Detect.); SARS-CoV-2 PCR Not Detected (Not Detect.)
--- NOTE | 2025-08-02 14:40 | P.CONCA_ITS ---
History of Present Illness History of Present Illness Date of Service: 08/02/25 Requesting physician: Dion Mike Chief complaint: Acute hypoxic respiratory failure, subsegmental PE Narrative: [age] year gentleman presenting with hypoxia and has been found to have subsegmental pulmonary embolism on CTA. There was concern for RV strain and we were asked to see him. He has echocardiography has shown mild RV dilation with mild RV dysfunction. He has moderate pulmonary hypertension. It appears he had known history of pulmonary hypertension. He has psychiatric issues and appears to be quite confused currently and history was quite limited. He is denying any symptoms currently. He is on 6 L nasal cannula and saturations are 94%. He is on Lovenox for anticoagulation. Labs and EKGs reviewed. 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 Anxiety as acute reaction to exceptional stress Depression Social History Social History Household Members: Spouse Housing: [facility] Do you presently have visiting nurse or other home services: Yes Patient Tobacco Use Status: Never used Tobacco Advance Directives Date on File: 08/01/25 service: Yes Meds Allergies Allergy/AdvReac Type Severity Reaction Status Date / Time No Known Allergies Allergy Verified 07/31/25 14:06 Active Medications: Current Medications Acetaminophen (Acetaminophen 325 Mg Tablet) 650 mg PO Q6H PRN PRN Reason: Pain, Mild 1-3,fever,headache Atorvastatin Calcium (Atorvastatin Calcium 20 Mg Tablet) 20 mg PO DAILY@1800 [facility] Last Admin: 08/01/25 17:18 Dose: 20 mg Calcium Carbonate (Calcium Carbonate 750 Mg Tab.Chew) 750 mg PO Q4H PRN PRN Reason: Heartburn Carbidopa/Levodopa (Carbidopa/Levodopa 25/100 Tablet) 1 tab PO BID@0900,1800 [facility] Last Admin: 08/02/25 08:06 Dose: 1 tab Clonazepam (Clonazepam 0.5 Mg Tablet) 0.125 mg PO TID PRN PRN Reason: Anxiety Last Admin: 07/31/25 20:53 Dose: 0.125 mg Clonazepam (Clonazepam 0.5 Mg Tablet) 0.25 mg PO TID@1000,1400,1800 [facility] Last Admin: 08/02/25 14:19 Dose: 0.25 mg Docusate Sodium (Docusate Sodium 100 Mg Capsule) 200 mg PO DAILY@1800 [facility] Last Admin: 08/01/25 17:25 Dose: Not Given Enoxaparin Sodium (Enoxaparin Sodium 100 Mg/Ml Syringe) 90 mg 1 mg/kg (90 mg) SUBCUT Q12H [facility] Last Admin: 08/02/25 06:08 Dose: 90 mg Escitalopram Oxalate (Escitalopram Oxalate 5 Mg Tablet) 5 mg PO DAILY [facility] Last Admin: 08/02/25 08:06 Dose: 5 mg Magnesium Hydroxide (Milk Of Magnesia 30 Ml Oral.Susp) 30 ml PO DAILY PRN PRN Reason: Constipation Melatonin (Melatonin 3 Mg Tablet) 6 mg PO BEDTIME [facility] Last Admin: 08/01/25 22:27 Dose: 6 mg Memantine (Memantine Hcl 10 Mg Tablet) 10 mg PO BID@0900,1800 [facility] Last Admin: 08/02/25 08:06 Dose: 10 mg Metoprolol Succinate (Metoprolol Succinate Er 100 Mg Tab.Er.24h) 100 mg PO DAILY [facility]; Protocol Last Admin: 08/02/25 08:05 Dose: 100 mg Mirtazapine (Mirtazapine 7.5 Mg Tablet) 3.75 mg PO BEDTIME [facility] Last Admin: 08/01/25 22:29 Dose: 3.75 mg Polyethylene Glycol (Polyethylene Glycol 3350 17 Gm Powd.Pack) 17 gm PO DAILY [facility] Last Admin: 08/02/25 08:06 Dose: Not Given Quetiapine Fumarate (Quetiapine Fumarate 25 Mg Tablet) 12.5 mg PO QID [facility] Last Admin: 08/02/25 14:19 Dose: 12.5 mg Rivastigmine Tartrate (Rivastigmine Tartrate 1.5 Mg Capsule) 3 mg PO BID@0900,1800 [facility] Last Admin: 08/02/25 08:05 Dose: 3 mg Sodium Chloride (0.9 % Sodium Chloride Flush 3 Ml Syringe) 3 ml IVFLUSH QSHIFT [facility] Last Admin: 08/02/25 08:07 Dose: 3 ml Tamsulosin HCl (Tamsulosin Hcl 0.4 Mg Capsule) 0.8 mg PO DAILY@1800 [facility] Last Admin: 08/01/25 17:18 Dose: 0.8 mg Trazodone HCl (Trazodone Hcl 100 Mg Tablet) 200 mg PO BEDTIME [facility] Last Admin: 08/01/25 22:27 Dose: 200 mg Home Medications ?Medication ?Instructions ?Recorded ?Confirmed ?Last Taken ?Type quetiapine 25 mg tablet 12.5 mg PO QID 05/23/2007/18 Unknown History tamsulosin 0.4 mg capsule 0.8 mg PO DAILY@1800 0 07/31/25 Unknown History docusate sodium 100 mg capsule 200 mg PO DAILY@1800 07/31/25 Unknown History (Colace) trazodone 100 mg tablet 200 mg PO BEDTIME 09/20/20 1 10/01/24 Unknown History aspirin 81 mg tablet,delayed 81 mg PO DAILY 07/31/25 1 10/01/24 Unknown History release carbidopa 25 mg-levodopa 100 mg 1 tab PO BID@0900,1800 07/31/25 07/31/25 Unknown History tablet (Sinemet) clonazepam 0.5 mg tablet 0.125 mg PO TID PRN Anxiety 07/31/25 07/31/25 Unknown History clonazepam 0.5 mg tablet 0.25 mg PO TID@1000,1400,180 0 07/31/25 08/01/25 Unknown History diclofenac sodium 1 % topical gel 2 g topical DAILY 07/31/25 Unknown History escitalopram oxalate 10 mg tablet 5 mg PO DAILY 07/31/25 Unknown History melatonin 5 mg tablet 5 mg PO BEDTIME 07/31/25 Unknown History memantine 10 mg tablet 10 mg PO BID@0900,1800 07/3107/31/25 Unknown History metoprolol succinate 100 mg 100 mg PO DAILY 07/31/25 1 10/01/24 Unknown History tablet,extended release 24 hr mirtazapine 7.5 mg tablet 3.75 mg PO BEDTIME 07/31/25 07/31/25 Unknown History polyethylene glycol 3350 17 17 g PO DAILY 07/31/25 Unknown History gram/dose oral powder (Miralax) rivastigmine tartrate 3 mg capsule 3 mg PO BID@0900,18 00 07/31/25 07/31/25 Unknown History simvastatin 40 mg tablet 40 mg PO DAILY@1800 07/31/25 07/31/25 Unknown History vitamins A,C,N-tfgi-ktmhay 2,148 1 tab PO BID@0900,180 0 07/31/25 07/31/25 Unknown History mcg-113 mg-45 mg-17.4 mg tablet (PreserVision AREDS) Physical Exam 2 Vital Signs: Vital Signs: Last Vital Signs Temp 97.0 F 08/02/25 11:24 Pulse 71 08/02/25 11:24 Resp 18 08/02/25 11:24 BP 137/87 08/02/25 11:24 Pulse Ox 94 08/02/25 11:24 O2 Del Method Nasal Cannula 08/02/25 11:24 O2 Flow Rate 6 08/02/25 11:24 BMI result Body Mass Index 28.3 GENERAL APPEARANCE: Confused. NECK: no carotid bruit, no jugular venous distention. SKIN: no suspicious lesions, warm and dry. HEART: no murmurs, regular rate and rhythm. LUNGS: clear to auscultation bilaterally. ABDOMEN: soft, nontender. EXTREMITIES: no edema. PERIPHERAL PULSES: equal. Objective Labs and Meds 08/01/25 13:45 08/01/25 13:45 Lab results: Laboratory Results - last 24 hr 08/02/25 08/02/25 09:32 09:55 VBG pH 7.41 VBG pCO2 39 VBG pO2 58 VBG HCO3 25 VBG O2 Saturation 85.0 VBG Base Excess 1.4 Respiratory Panel [place] See Note Adenovirus (Rapid PCR) Not Detected B.pert (TEM-PCR) Not Detected B.parapertussis DNA PCR Not Detected C. pneumoniae DNA (PCR) Not Detected Coronavirus OC43 (PCR) Not Detected Coronavirus HKU1 (PCR) Not Detected Coronavirus 229E (PCR) Not Detected Coronavirus NL63 (PCR) Not Detected Human Metapneumovir PCR Not Detected Influenza A (RT-PCR) Not Detected Influenza A (H1) PCR Not Detected Influ A (H1/09) PCR Not Detected Influenza A (H3) PCR Not Detected Influenza B (RT-PCR) Not Detected M. pneumoniae (PCR) Not Detected Parainfluenza 1 (PCR) Not Detected Parainfluenza 2 (PCR) Not Detected Parainfluenza 3 (PCR) Not Detected Parainfluenza 4 (PCR) Not Detected RSV (PCR) Not Detected Entero/Rhino (PCR) Not Detected SARS-CoV-2 RNA (RT-PCR) Not Detected Imaging Radiologist's impression: Impressions Venous Duplex 08/02/25 09:54 IMPRESSION: No acute deep venous thrombosis interrogated veins and the lower extremity. Negative for DVT.. Electronically signed by: Jake Leyva MD 08/02/2025 10:30 AM [facility] Assessment and Plan (1) Acute hypoxic respiratory failure: Status: Acute (2) Pulmonary embolism: Status: Acute Plan [age] year gentleman with hypoxic respiratory failure secondary to pulmonary embolism. He does not have central PE and he may not be a candidate for percutaneous aspiration. Continue Lovenox. Can eventually be changed to Eliquis. Hopefully as we anticoagulated his oxygen demand improves. If he does not improve then he may need oxygen as he goes home. Most of the time these patients improve and can get off the oxygen unless he had another reason for hypoxia which we do not know. We will follow along with you. Thank you for allowing me to participate in the care of your patient. Please feel free to contact me if you have any questions. Procedures Date of Service Date of Service: 08/02/25
[2025-08-03] MEDS: 0.9 % Sodium Chloride Flush 3 ML SYRINGE IVFLUSH ×3 (00:05→17:43)
[2025-08-03 04:00] VITALS: BP 119/60; PULSE 69; RESP 17; TEMP 36.6; O2SAT 96
[2025-08-03 06:08] LABS: Hematocrit 43.7 % (42.0-52.0); Hemoglobin 14.5 g/dl (14.0-18.0); Mean Corpuscular HGB Conc 33.2 g/dl (31.0-36.0); Mean Corpuscular Hemoglobin 28.3 pg (27.0-33.0); Mean Corpuscular Volume 85.2 fL (80.0-98.0); NRBC Abs Auto 0.000 X10*3/uL (0.0-0.012); NRBC Pct Auto 0.0 /100WBC (0.0-0.2); Platelet Count 177 X10*3/uL (160-400); Red Blood Count 5.13 X10*6/uL (4.60-5.80); White Blood Count 6.1 X10*3/uL (4.8-10.8)
[2025-08-03 06:56] LABS: Anion Gap 11 (12-20); Blood Urea Nitrogen 13 mg/dL (9-16); Calcium 8.4 mg/dL (8.4-10.2); Carbon Dioxide 29 mmol/L (22-29); Chloride 104 mmol/L (96-108); Creatinine Clr Calc Pharmacy 80.4; Estimated Glomerular Filt Rate > 60; Potassium 3.9 mmol/L (3.3-5.1); Sodium 140 mmol/L (135-145)
[2025-08-03 07:46] VITALS: BP 119/86; PULSE 70; RESP 18; TEMP 36.9; O2SAT 92
--- NOTE | 2025-08-03 08:35 | P.PNIM_ITS ---
Subjective Subjective Date of Service: 08/03/25 Interval History: Patient seen examined at bedside this morning, patient's oxygen has slightly improved at this time requiring 4.5-5 L of oxygen. Spoke with pulmonology, suggested on given dose of Lasix. at bedside. Review of Systems Review of Systems: Yes all other systems are reviewed and are negative Physical Exam 2 Exam: Exam: General: AxOx2, In respiratory distress on 5 L of oxygen, improved Head: AT/NC ENT: Moist mucous membranes Neck: supple CVS; RRR, S1 S2 normal Lungs: decreased bilateral breath sounds Abd: Soft non tender, non distended Ext: No edema and no calf tenderness MSK: moving all 4 limbs Skin: No cyanosis or edema Psych: Cooperative with exam Neurology: no focal deficit Vital Signs: Vital Signs: Last Vital Signs Temp 98.5 F 08/03/25 07:46 Pulse 70 08/03/25 07:46 Resp 18 08/03/25 07:46 BP 119/86 08/03/25 07:46 Pulse Ox 92 08/03/25 07:46 O2 Del Method Nasal Cannula 08/03/25 07:46 O2 Flow Rate 4 08/03/25 07:46 BMI result Body Mass Index 28.3 Objective Data Active Medications Acetaminophen (Acetaminophen 325 Mg Tablet) 650 mg PO Q6H PRN PRN Reason: Pain, Mild 1-3,fever,headache Atorvastatin Calcium (Atorvastatin Calcium 20 Mg Tablet) 20 mg PO DAILY@1800 [facility] Last Admin: 08/02/25 17:40 Dose: 20 mg Documented By: SWAPNA Calcium Carbonate (Calcium Carbonate 750 Mg Tab.Chew) 750 mg PO Q4H PRN PRN Reason: Heartburn Carbidopa/Levodopa (Carbidopa/Levodopa 25/100 Tablet) 1 tab PO BID@0900,1800 [facility] Last Admin: 08/02/25 17:41 Dose: 1 tab Documented By: SWAPNA Clonazepam (Clonazepam 0.5 Mg Tablet) 0.125 mg PO TID PRN PRN Reason: Anxiety Last Admin: 07/31/25 20:53 Dose: 0.125 mg Documented By: FERNANDO Clonazepam (Clonazepam 0.5 Mg Tablet) 0.25 mg PO TID@1000,1400,1800 [facility] Last Admin: 08/02/25 17:41 Dose: 0.25 mg Documented By: SWAPNA Docusate Sodium (Docusate Sodium 100 Mg Capsule) 200 mg PO DAILY@1800 [facility] Last Admin: 08/02/25 17:44 Dose: Not Given Documented By: SWAPNA Non-Admin Reason: diarrhea Enoxaparin Sodium (Enoxaparin Sodium 100 Mg/Ml Syringe) 90 mg 1 mg/kg (90 mg) SUBCUT Q12H [facility] Last Admin: 08/03/25 06:05 Dose: 90 mg Documented By: WALTER Escitalopram Oxalate (Escitalopram Oxalate 5 Mg Tablet) 5 mg PO DAILY [facility] Last Admin: 08/02/25 08:06 Dose: 5 mg Documented By: BRIAN Magnesium Hydroxide (Milk Of Magnesia 30 Ml Oral.Susp) 30 ml PO DAILY PRN PRN Reason: Constipation Melatonin (Melatonin 3 Mg Tablet) 6 mg PO BEDTIME [facility] Last Admin: 08/02/25 21:20 Dose: 6 mg Documented By: SWAPNA Memantine (Memantine Hcl 10 Mg Tablet) 10 mg PO BID@0900,1800 [facility] Last Admin: 08/02/25 17:40 Dose: 10 mg Documented By: SWAPNA Metoprolol Succinate (Metoprolol Succinate Er 100 Mg Tab.Er.24h) 100 mg PO DAILY [facility]; Protocol Last Admin: 08/02/25 08:05 Dose: 100 mg Documented By: BRIAN Mirtazapine (Mirtazapine 7.5 Mg Tablet) 3.75 mg PO BEDTIME [facility] Last Admin: 08/02/25 21:20 Dose: 3.75 mg Documented By: SWAPNA Polyethylene Glycol (Polyethylene Glycol 3350 17 Gm Powd.Pack) 17 gm PO DAILY [facility] Last Admin: 08/02/25 08:06 Dose: Not Given Documented By: BRIAN Non-Admin Reason: Patient Refused Quetiapine Fumarate (Quetiapine Fumarate 25 Mg Tablet) 12.5 mg PO QID [facility] Last Admin: 08/02/25 21:21 Dose: 12.5 mg Documented By: SWAPNA Rivastigmine Tartrate (Rivastigmine Tartrate 1.5 Mg Capsule) 3 mg PO BID@0900,1800 [facility] Last Admin: 08/02/25 17:40 Dose: 3 mg Documented By: SWAPNA Sildenafil Citrate (Sildenafil Citrate 20 Mg Tablet) 20 mg PO TID [facility] Last Admin: 08/02/25 21:20 Dose: 20 mg Documented By: SWAPNA Sodium Chloride (0.9 % Sodium Chloride Flush 3 Ml Syringe) 3 ml IVFLUSH QSHIFT [facility] Last Admin: 08/03/25 00:05 Dose: 3 ml Documented By: WALTER Tamsulosin HCl (Tamsulosin Hcl 0.4 Mg Capsule) 0.8 mg PO DAILY@1800 [facility] Last Admin: 08/02/25 17:40 Dose: 0.8 mg Documented By: SWAPNA Trazodone HCl (Trazodone Hcl 100 Mg Tablet) 200 mg PO BEDTIME [facility] Last Admin: 08/02/25 21:20 Dose: 200 mg Documented By: SWAPNA Labs 08/03/25 05:55 08/03/25 05:55 Labs: Laboratory Results - last 24 hr 08/02/25 08/02/25 08/03/25 09:32 09:55 05:55 MCV 85.2 MCH 28.3 MCHC 33.2 RDW 13.4 Plt Count 177 MPV 8.7 L Absolute Nucleated RBC 0.000 Nucleated RBC % (auto) 0.0 VBG pH 7.41 VBG pCO2 39 VBG pO2 58 VBG HCO3 25 VBG O2 Saturation 85.0 VBG Base Excess 1.4 Anion Gap 11 L Estim Creat Clear Calc 80.4 Estimated GFR > 60 Random Glucose 99 Calcium 8.4 Respiratory Panel [place] See Note Adenovirus (Rapid PCR) Not Detected B.pert (TEM-PCR) Not Detected B.parapertussis DNA PCR Not Detected C. pneumoniae DNA (PCR) Not Detected Coronavirus OC43 (PCR) Not Detected Coronavirus HKU1 (PCR) Not Detected Coronavirus 229E (PCR) Not Detected Coronavirus NL63 (PCR) Not Detected Human Metapneumovir PCR Not Detected Influenza A (RT-PCR) Not Detected Influenza A (H1) PCR Not Detected Influ A (H1/09) PCR Not Detected Influenza A (H3) PCR Not Detected Influenza B (RT-PCR) Not Detected M. pneumoniae (PCR) Not Detected Parainfluenza 1 (PCR) Not Detected Parainfluenza 2 (PCR) Not Detected Parainfluenza 3 (PCR) Not Detected Parainfluenza 4 (PCR) Not Detected RSV (PCR) Not Detected Entero/Rhino (PCR) Not Detected SARS-CoV-2 RNA (RT-PCR) Not Detected Microbiology Microbiology Results: Microbiology 07/31/25 14:36 Blood Culture - Preliminary Blood - Venous No growth after 48 hours. 07/31/25 14:20 Blood Culture - Preliminary Blood - Venous No growth after 48 hours. Assessment and Plan (1) Pulmonary embolism: Status: Acute (2) Altered mental status: Status: Acute (3) Hypoxia: Status: Acute (4) Infected inclusion cyst: Status: Acute (5) Cor pulmonale: Status: Acute (6) Pulmonary hypertension: Status: Acute (7) Hypotension: Status: Acute Plan 69-year-old male with history of cognitive impairment, parkinsonism, hypertension, hyperlipidemia, BPH, and severe anxiety/depression, admitted for acute hypoxic respiratory failure secondary to left lower lobe subsegmental pulmonary embolism with evidence of severe pulmonary hypertension and right heart strain, now with transient hypotension and hypoxia requiring increased oxygen and IV fluids, currently hemodynamically improved, pending further cardiac evaluation. Acute Pulmonary Embolism with Acute Hypoxic Respiratory Failure, improving on 5L of oxygen at this time - imaging reviewed, unable to have thrombectomy done - Continue therapeutic enoxaparin (1 mg/kg BID) for acute PE. - Monitor for clinical decompensation (vitals q2-4h, continuous pulse oximetry, telemetry). - Maintain O2 to keep SpO2 >92%; titrate as needed. - Monitor for signs of shock, RV failure, or need for escalation (consider ICU if instability recurs). - Per pulm, continue sildenafil and give one dose of IV Lasix - Thrombophilia workup as per Hem/Onc. - Transition to apixaban when stable and able to take PO reliably. - Monitor for bleeding complications. - ABG ordered Pulmonary Hypertension - TTE reviewed - Continue to avoid excessive IV fluids. - Consult pulmonary for management recommendations. - Monitor for arrhythmias, worsening hypoxia, or signs of RV failure. Cognitive Impairment / Parkinsonism - Continue home medications (carbidopa/levodopa, memantine, rivastigmine). - Monitor for delirium; minimize sedating medications. - Reorient as needed; involve family in care. Anxiety/Depression - Continue home psychiatric medications. will decrease klonipin to BID and Quetiapine to TID as per patients and discussion with his psychiatrist. patient referred he has been feeling somnolent and groggy and wishes to come down on psychiatric meds - Minimize environmental stressors. - Consider psych consult if agitation or mood symptoms worsen. Hypertension, chronic - resume BP meds and adjust accordingly Hyperlipidemia, chronic - Continue statin (atorvastatin or simvastatin as per formulary/med rec). BPH, chronic - Continue tamsulosin. Constipation - Continue bowel regimen. - Monitor for ileus or constipation. QUALITY [employer] * VTE: Therapeutic anticoagulation (enoxaparin) * CODE STATUS: Full code * DIET: Regular Total time managing care of this patient today: 45 minutes. Quality Stroke Does the patient have a stroke diagnosis?: No VTE Prior VTE?: No VTE Risk Level:: Medical - moderate - high VTE Device Contraindication: Treatment Not Indicated VTE Drug Contraindication: N/A - Med Ordered
[2025-08-03] MEDS: Metoprolol Succinate ER 100 MG TAB.ER.24H PO (08:49)
--- NOTE | 2025-08-03 10:22 | MHC.CM.PN ---
Per [facility]OUNDS, Patient is not yet medically cleared for dc (weaning O2).
[2025-08-03 11:19] VITALS: BP 115/57; PULSE 70; RESP 18; TEMP 36.1; O2SAT 94
[2025-08-03 12:29] LABS: ABG Refer to POC result
[2025-08-03] MEDS: Furosemide 20 MG/2 ML VIAL IVPUSH (13:15)
[2025-08-03 15:27] VITALS: BP 130/60; PULSE 75; RESP 16; TEMP 36.6; O2SAT 94
[2025-08-03 18:56] VITALS: BP 124/77; PULSE 98; RESP 16; TEMP 36.2; O2SAT 96
[2025-08-03 23:46] VITALS: BP 111/64; PULSE 65; RESP 18; TEMP 36.1; O2SAT 92
[2025-08-04 03:34] VITALS: BP 115/58; PULSE 77; RESP 16; TEMP 36.3; O2SAT 92
[2025-08-04 06:07] LABS: Hematocrit 43.9 % (42.0-52.0); Hemoglobin 15.0 g/dl (14.0-18.0); Mean Corpuscular HGB Conc 34.2 g/dl (31.0-36.0); Mean Corpuscular Hemoglobin 28.6 pg (27.0-33.0); Mean Corpuscular Volume 83.8 fL (80.0-98.0); NRBC Abs Auto 0.000 X10*3/uL (0.0-0.012); NRBC Pct Auto 0.0 /100WBC (0.0-0.2); Platelet Count 195 X10*3/uL (160-400); Red Blood Count 5.24 X10*6/uL (4.60-5.80); White Blood Count 5.9 X10*3/uL (4.8-10.8)
[2025-08-04 06:29] LABS: Anion Gap 14 (12-20); Blood Urea Nitrogen 14 mg/dL (9-16); Calcium 8.6 mg/dL (8.4-10.2); Carbon Dioxide 26 mmol/L (22-29); Chloride 104 mmol/L (96-108); Creatinine Clr Calc Pharmacy 88.0; Estimated Glomerular Filt Rate > 60; Potassium 3.5 mmol/L (3.3-5.1); Sodium 140 mmol/L (135-145)
[2025-08-04 08:00] VITALS: BP 119/63; PULSE 77; RESP 16; TEMP 36.9; O2SAT 92
--- NOTE | 2025-08-04 08:30 | HO.PM.IMPN ---
Subjective Subjective Date of Service: 08/04/25 Interval History: Patient seen examined at bedside this morning, oxygen levels improving, mentioned that he has been trouble sleeping. Review of Systems Review of Systems: Yes Unobtainable due to mental status Physical Exam Exam: Exam: General: AxOx2, In respiratory distress on 4 L of oxygen, improved Head: AT/NC ENT: Moist mucous membranes Neck: supple CVS; RRR, S1 S2 normal Lungs: decreased bilateral breath sounds Abd: Soft non tender, non distended Ext: No edema and no calf tenderness MSK: moving all 4 limbs Skin: No cyanosis or edema Psych: Cooperative with exam Neurology: no focal deficit Vital Signs: Vital Signs: Last Vital Signs Temp 97.4 F 08/04/25 03:34 Pulse 77 08/04/25 03:34 Resp 16 08/04/25 03:34 BP 115/58 L 08/04/25 03:34 Pulse Ox 92 08/04/25 03:34 O2 Del Method Nasal Cannula 08/04/25 03:34 O2 Flow Rate 5 08/04/25 03:34 BMI result Body Mass Index 28.3 Objective Data Active Medications Acetaminophen (Acetaminophen 325 Mg Tablet) 650 mg PO Q6H PRN PRN Reason: Pain, Mild 1-3,fever,headache Atorvastatin Calcium (Atorvastatin Calcium 20 Mg Tablet) 20 mg PO DAILY@1800 [facility] Last Admin: 08/03/25 17:40 Dose: 20 mg Documented By: DENIA Calcium Carbonate (Calcium Carbonate 750 Mg Tab.Chew) 750 mg PO Q4H PRN PRN Reason: Heartburn Carbidopa/Levodopa (Carbidopa/Levodopa 25/100 Tablet) 1 tab PO BID@0900,1800 [facility] Last Admin: 08/03/25 17:40 Dose: 1 tab Documented By: DENIA Clonazepam (Clonazepam 0.5 Mg Tablet) 0.125 mg PO TID PRN PRN Reason: Anxiety Last Admin: 08/03/25 13:35 Dose: 0.125 mg Documented By: DENIA Clonazepam (Clonazepam 0.5 Mg Tablet) 0.25 mg PO BID [facility] Last Admin: 08/03/25 20:22 Dose: 0.25 mg Documented By: SWAPNA Docusate Sodium (Docusate Sodium 100 Mg Capsule) 200 mg PO DAILY@1800 [facility] Last Admin: 08/03/25 17:40 Dose: 200 mg Documented By: DENIA Enoxaparin Sodium (Enoxaparin Sodium 100 Mg/Ml Syringe) 90 mg 1 mg/kg (90 mg) SUBCUT Q12H [facility] Last Admin: 08/04/25 06:07 Dose: 90 mg Documented By: SWAPNA Escitalopram Oxalate (Escitalopram Oxalate 5 Mg Tablet) 5 mg PO DAILY [facility] Last Admin: 08/03/25 08:49 Dose: 5 mg Documented By: DENIA Magnesium Hydroxide (Milk Of Magnesia 30 Ml Oral.Susp) 30 ml PO DAILY PRN PRN Reason: Constipation Melatonin (Melatonin 3 Mg Tablet) 6 mg PO BEDTIME [facility] Last Admin: 08/03/25 21:50 Dose: 6 mg Documented By: SWAPNA Memantine (Memantine Hcl 10 Mg Tablet) 10 mg PO BID@0900,1800 [facility] Last Admin: 08/03/25 17:40 Dose: 10 mg Documented By: DENIA Metoprolol Succinate (Metoprolol Succinate Er 100 Mg Tab.Er.24h) 100 mg PO DAILY [facility]; Protocol Last Admin: 08/03/25 08:49 Dose: 100 mg Documented By: DENIA Mirtazapine (Mirtazapine 7.5 Mg Tablet) 3.75 mg PO BEDTIME [facility] Last Admin: 08/03/25 21:50 Dose: 3.75 mg Documented By: SWAPNA Polyethylene Glycol (Polyethylene Glycol 3350 17 Gm Powd.Pack) 17 gm PO DAILY [facility] Last Admin: 08/03/25 09:03 Dose: 17 gm Documented By: DENIA Quetiapine Fumarate (Quetiapine Fumarate 25 Mg Tablet) 12.5 mg PO TID [facility] Last Admin: 08/03/25 21:51 Dose: 12.5 mg Documented By: SWAPNA Rivastigmine Tartrate (Rivastigmine Tartrate 1.5 Mg Capsule) 3 mg PO BID@0900,1800 [facility] Last Admin: 08/03/25 17:40 Dose: 3 mg Documented By: DENIA Sildenafil Citrate (Sildenafil Citrate 20 Mg Tablet) 20 mg PO TID [facility] Last Admin: 08/03/25 21:50 Dose: 20 mg Documented By: SWAPNA Sodium Chloride (0.9 % Sodium Chloride Flush 3 Ml Syringe) 3 ml IVFLUSH QSHIFT [facility] Last Admin: 08/04/25 00:00 Dose: 3 ml Documented By: SWAPNA Tamsulosin HCl (Tamsulosin Hcl 0.4 Mg Capsule) 0.8 mg PO DAILY@1800 [facility] Last Admin: 08/03/25 17:40 Dose: 0.8 mg Documented By: DENIA Trazodone HCl (Trazodone Hcl 100 Mg Tablet) 200 mg PO BEDTIME [facility] Last Admin: 08/03/25 21:50 Dose: 200 mg Documented By: SWAPNA Labs 08/04/25 05:16 08/04/25 05:16 Labs: Laboratory Results - last 24 hr 08/04/25 05:16 MCV 83.8 MCH 28.6 MCHC 34.2 RDW 13.3 Plt Count 195 MPV 8.7 L Absolute Nucleated RBC 0.000 Nucleated RBC % (auto) 0.0 Anion Gap 14 Estim Creat Clear Calc 88.0 Estimated GFR > 60 Random Glucose 102 Calcium 8.6 Assessment and Plan (1) Pulmonary embolism: Status: Acute (2) Altered mental status: Status: Acute (3) Hypoxia: Status: Acute (4) Infected inclusion cyst: Status: Acute (5) Cor pulmonale: Status: Acute (6) Pulmonary hypertension: Status: Acute (7) Hypotension: Status: Acute Plan 69-year-old male with history of cognitive impairment, parkinsonism, hypertension, hyperlipidemia, BPH, and severe anxiety/depression, admitted for acute hypoxic respiratory failure secondary to left lower lobe subsegmental pulmonary embolism with evidence of severe pulmonary hypertension and right heart strain, now with transient hypotension and hypoxia requiring increased oxygen and IV fluids, currently hemodynamically improved. Patient started on Sildenafil on 08/03 and given lasix with improvement of respiratory function Acute Pulmonary Embolism with Acute Hypoxic Respiratory Failure, improving on 4L of oxygen at this time - imaging reviewed, unable to have thrombectomy done - Continue therapeutic enoxaparin (1 mg/kg BID) for acute PE. - Monitor for clinical decompensation (vitals q2-4h, continuous pulse oximetry, telemetry). - Maintain O2 to keep SpO2 >92%; titrate as needed. - Monitor for signs of shock, RV failure, or need for escalation (consider ICU if instability recurs). - Per pulm, continue sildenafil s/p Lasix given yesterday - Thrombophilia workup as per Hem/Onc. - Transition to apixaban when stable and able to take PO reliably. - Monitor for bleeding complications. - ABG ordered Pulmonary Hypertension - TTE reviewed - Continue to avoid excessive IV fluids. - Consult pulmonary for management recommendations. - Monitor for arrhythmias, worsening hypoxia, or signs of RV failure. Cognitive Impairment / Parkinsonism - Continue home medications (carbidopa/levodopa, memantine, rivastigmine). - Monitor for delirium; minimize sedating medications. - Reorient as needed; involve family in care. Anxiety/Depression - Continue home psychiatric medications. continue klonipin BID and Quetiapine TID - Minimize environmental stressors. - Consider psych consult if agitation or mood symptoms worsen. Hypertension, chronic - resume BP meds and adjust accordingly Hyperlipidemia, chronic - Continue statin (atorvastatin or simvastatin as per formulary/med rec). BPH, chronic - Continue tamsulosin. Constipation - Continue bowel regimen. - Monitor for ileus or constipation. [employer] VTE: Therapeutic anticoagulation (enoxaparin) CODE STATUS: Full code DIET: Regular Total time managing care of this patient today: 45 minutes. Quality Stroke Does the patient have a stroke diagnosis?: No VTE Prior VTE?: No VTE Risk Level:: Medical - moderate - high VTE Device Contraindication: Treatment Not Indicated VTE Drug Contraindication: N/A - Med Ordered
[2025-08-04] MEDS: Metoprolol Succinate ER 100 MG TAB.ER.24H PO (09:45)
[2025-08-04] MEDS: 0.9 % Sodium Chloride Flush 3 ML SYRINGE IVFLUSH ×3 (10:50→16:49)
[2025-08-04 12:00] VITALS: BP 100/56; PULSE 69; RESP 16; TEMP 36.4; O2SAT 93
[2025-08-04 16:00] VITALS: BP 133/61; PULSE 77; RESP 20; TEMP 36.5; O2SAT 95
[2025-08-04 20:00] VITALS: BP 134/68; PULSE 80; RESP 20; TEMP 36.3; O2SAT 92
[2025-08-04 22:43] VITALS: BP 123/69; PULSE 64; RESP 20; TEMP 36.6; O2SAT 94
[2025-08-05 04:00] VITALS: BP 125/65; PULSE 82; RESP 16; TEMP 36.7; O2SAT 93
[2025-08-05 06:54] LABS: Hematocrit 43.6 % (42.0-52.0); Hemoglobin 14.7 g/dl (14.0-18.0); Mean Corpuscular HGB Conc 33.7 g/dl (31.0-36.0); Mean Corpuscular Hemoglobin 28.4 pg (27.0-33.0); Mean Corpuscular Volume 84.2 fL (80.0-98.0); NRBC Abs Auto 0.000 X10*3/uL (0.0-0.012); NRBC Pct Auto 0.0 /100WBC (0.0-0.2); Platelet Count 183 X10*3/uL (160-400); Red Blood Count 5.18 X10*6/uL (4.60-5.80); White Blood Count 6.4 X10*3/uL (4.8-10.8)
[2025-08-05 07:04] LABS: Anion Gap 10 (12-20); Blood Urea Nitrogen 16 mg/dL (9-16); Calcium 8.6 mg/dL (8.4-10.2); Carbon Dioxide 27 mmol/L (22-29); Chloride 105 mmol/L (96-108); Creatinine Clr Calc Pharmacy 97.1; Estimated Glomerular Filt Rate > 60; Potassium 3.6 mmol/L (3.3-5.1); Sodium 138 mmol/L (135-145)
[2025-08-05] MEDS: Metoprolol Succinate ER 100 MG TAB.ER.24H PO (07:44)
[2025-08-05 07:49] VITALS: BP 103/73; PULSE 91; RESP 20; TEMP 36.7; O2SAT 90
[2025-08-05] MEDS: 0.9 % Sodium Chloride Flush 3 ML SYRINGE IVFLUSH ×2 (08:04→17:21)
--- NOTE | 2025-08-05 08:47 | P.PNIM_ITS ---
Subjective Subjective Date of Service: 08/05/25 Interval History: Patient seen examined at bedside this morning, spoke with family yesterday, which to have Klonopin and Seroquel back to home dosing. Mentioned that they will speak with their psychiatrist as an outpatient to adjust his medications. At this time oxygen improved currently on 3 L of oxygen. Review of Systems Review of Systems: Yes all other systems are reviewed and are negative Physical Exam 2 Exam: Exam: General: AxOx2, In respiratory distress on 3 L of oxygen, improved Head: AT/NC ENT: Moist mucous membranes Neck: supple CVS; RRR, S1 S2 normal Lungs: decreased bilateral breath sounds Abd: Soft non tender, non distended Ext: No edema and no calf tenderness MSK: moving all 4 limbs Skin: No cyanosis or edema Psych: Cooperative with exam Neurology: no focal deficit Vital Signs: Vital Signs: Last Vital Signs Temp 98.1 F 08/05/25 07:49 Pulse 91 08/05/25 07:49 Resp 20 08/05/25 07:49 BP 103/73 08/05/25 07:49 Pulse Ox 90 L 08/05/25 07:49 O2 Del Method Nasal Cannula 08/05/25 07:49 O2 Flow Rate 3 08/05/25 07:49 BMI result Body Mass Index 28.3 Objective Data Active Medications Acetaminophen (Acetaminophen 325 Mg Tablet) 650 mg PO Q6H PRN PRN Reason: Pain, Mild 1-3,fever,headache Atorvastatin Calcium (Atorvastatin Calcium 20 Mg Tablet) 20 mg PO DAILY@1800 [facility] Last Admin: 08/04/25 18:02 Dose: 20 mg Documented By: RENETTA Calcium Carbonate (Calcium Carbonate 750 Mg Tab.Chew) 750 mg PO Q4H PRN PRN Reason: Heartburn Carbidopa/Levodopa (Carbidopa/Levodopa 25/100 Tablet) 1 tab PO BID@0900,1800 [facility] Last Admin: 08/05/25 07:44 Dose: 1 tab Documented By: RENETTA Clonazepam (Clonazepam 0.5 Mg Tablet) 0.125 mg PO TID PRN PRN Reason: Anxiety Last Admin: 08/04/25 15:06 Dose: 0.125 mg Documented By: CHRIS Clonazepam (Clonazepam 0.5 Mg Tablet) 0.25 mg PO TID [facility] Last Admin: 08/05/25 07:44 Dose: 0.25 mg Documented By: RENETTA Docusate Sodium (Docusate Sodium 100 Mg Capsule) 200 mg PO DAILY@1800 [facility] Last Admin: 08/04/25 18:02 Dose: 200 mg Documented By: RENETTA Enoxaparin Sodium (Enoxaparin Sodium 100 Mg/Ml Syringe) 90 mg 1 mg/kg (90 mg) SUBCUT Q12H [facility] Last Admin: 08/05/25 06:32 Dose: 90 mg Documented By: SHANTE Escitalopram Oxalate (Escitalopram Oxalate 5 Mg Tablet) 5 mg PO DAILY [facility] Last Admin: 08/05/25 07:43 Dose: 5 mg Documented By: RENETTA Magnesium Hydroxide (Milk Of Magnesia 30 Ml Oral.Susp) 30 ml PO DAILY PRN PRN Reason: Constipation Melatonin (Melatonin 3 Mg Tablet) 6 mg PO BEDTIME [facility] Last Admin: 08/04/25 22:20 Dose: 6 mg Documented By: SHANTE Memantine (Memantine Hcl 10 Mg Tablet) 10 mg PO BID@0900,1800 [facility] Last Admin: 08/05/25 07:44 Dose: 10 mg Documented By: RENETTA Metoprolol Succinate (Metoprolol Succinate Er 100 Mg Tab.Er.24h) 100 mg PO DAILY [facility]; Protocol Last Admin: 08/05/25 07:44 Dose: 100 mg Documented By: RENETTA Mirtazapine (Mirtazapine 7.5 Mg Tablet) 3.75 mg PO BEDTIME [facility] Last Admin: 08/04/25 22:21 Dose: 3.75 mg Documented By: SHANTE Polyethylene Glycol (Polyethylene Glycol 3350 17 Gm Powd.Pack) 17 gm PO DAILY [facility] Last Admin: 08/05/25 07:45 Dose: 17 gm Documented By: RENETTA Quetiapine Fumarate (Quetiapine Fumarate 25 Mg Tablet) 12.5 mg PO QID [facility] Last Admin: 08/05/25 07:44 Dose: 12.5 mg Documented By: RENETTA Rivastigmine Tartrate (Rivastigmine Tartrate 1.5 Mg Capsule) 3 mg PO BID@0900,1800 [facility] Last Admin: 08/05/25 07:43 Dose: 3 mg Documented By: RENETTA Sildenafil Citrate (Sildenafil Citrate 20 Mg Tablet) 20 mg PO TID [facility] Last Admin: 08/05/25 07:44 Dose: 20 mg Documented By: RENETTA Sodium Chloride (0.9 % Sodium Chloride Flush 3 Ml Syringe) 3 ml IVFLUSH QSHIFT [facility] Last Admin: 08/05/25 08:04 Dose: 3 ml Documented By: RENETTA Sodium Chloride (Sodium Chloride 0.65 % Nasal 44 Ml Sprbtl) 1 spray NOSTRIL-B Q1H PRN PRN Reason: Congestion Tamsulosin HCl (Tamsulosin Hcl 0.4 Mg Capsule) 0.8 mg PO DAILY@1800 [facility] Last Admin: 08/04/25 18:03 Dose: 0.8 mg Documented By: RENETTA Trazodone HCl (Trazodone Hcl 100 Mg Tablet) 200 mg PO BEDTIME [facility] Last Admin: 08/04/25 22:20 Dose: 200 mg Documented By: FOGARTB Labs 08/05/25 06:43 08/05/25 06:43 Labs: Laboratory Results - last 24 hr 08/05/25 06:43 MCV 84.2 MCH 28.4 MCHC 33.7 RDW 13.2 Plt Count 183 MPV 8.5 L Absolute Nucleated RBC 0.000 Nucleated RBC % (auto) 0.0 Anion Gap 10 L Estim Creat Clear Calc 97.1 Estimated GFR > 60 Random Glucose 101 Calcium 8.6 Assessment and Plan (1) Pulmonary embolism: Status: Acute (2) Altered mental status: Status: Acute (3) Hypoxia: Status: Acute (4) Infected inclusion cyst: Status: Acute (5) Cor pulmonale: Status: Acute (6) Pulmonary hypertension: Status: Acute (7) Hypotension: Status: Acute Plan 69-year-old male with history of cognitive impairment, parkinsonism, hypertension, hyperlipidemia, BPH, and severe anxiety/depression, admitted for acute hypoxic respiratory failure secondary to left lower lobe subsegmental pulmonary embolism with evidence of severe pulmonary hypertension and right heart strain, now with transient hypotension and hypoxia requiring increased oxygen and IV fluids, currently hemodynamically improved. Patient started on Sildenafil on 08/03 and given lasix with improvement of respiratory function Acute Pulmonary Embolism with Acute Hypoxic Respiratory Failure, improving on 4L of oxygen at this time - imaging reviewed, unable to have thrombectomy done - Continue therapeutic enoxaparin (1 mg/kg BID) for acute PE. - Monitor for clinical decompensation (vitals q2-4h, continuous pulse oximetry, telemetry). - Maintain O2 to keep SpO2 >92%; titrate as needed. - Monitor for signs of shock, RV failure, or need for escalation (consider ICU if instability recurs). - Per pulm, continue sildenafil - Thrombophilia workup as per Hem/Onc. - Transition to apixaban when stable and able to take PO reliably. - Monitor for bleeding complications. Pulmonary Hypertension - TTE reviewed - Continue to avoid excessive IV fluids. - Consult pulmonary for management recommendations. - Monitor for arrhythmias, worsening hypoxia, or signs of RV failure. Cognitive Impairment / Parkinsonism - Continue home medications (carbidopa/levodopa, memantine, rivastigmine). - Monitor for delirium; minimize sedating medications. - Reorient as needed; involve family in care. Anxiety/Depression - Continue home psychiatric medications, will defer to outpatient psychiatry to adjust his medications - Minimize environmental stressors. - Consider psych consult if agitation or mood symptoms worsen. Hypertension, chronic - resume BP meds and adjust accordingly Hyperlipidemia, chronic - Continue statin (atorvastatin or simvastatin as per formulary/med rec). BPH, chronic - Continue tamsulosin. Constipation - Continue bowel regimen. - Monitor for ileus or constipation. [employer] * VTE: Therapeutic anticoagulation (enoxaparin) * CODE STATUS: Full code * DIET: Regular Total time managing care of this patient today: 45 minutes. Quality Stroke Does the patient have a stroke diagnosis?: No VTE Prior VTE?: No VTE Risk Level:: Medical - moderate - high VTE Device Contraindication: Treatment Not Indicated VTE Drug Contraindication: N/A - Med Ordered
[2025-08-05 10:20] VITALS: BP 103/73; PULSE 91; O2SAT 90
--- NOTE | 2025-08-05 10:23 | MHC.CM.PN ---
Per [facility], Patient is not yet medically cleared for dc (still on O2 &needs PT Eval).
[2025-08-05 11:22] VITALS: BP 114/66; PULSE 65; RESP 18; TEMP 36.5; O2SAT 94
[2025-08-05 15:53] VITALS: BP 138/76; PULSE 68; RESP 16; TEMP 36.6; O2SAT 97
--- NOTE | 2025-08-05 17:19 | PM.PSYCN ---
History of Present Illness Date of Service: 08/06/2025 Chief Complaint: Acute hypoxic respiratory failure, subsegmental PE Reason for Consult: increase anxiety Requesting physician: Dion Mike Discussed with referring provider: Yes Sources of Information: patient interviewed, chart reviewed and crisis/core team assessment reviewed Additional Sources of Information: by bed side HPI Narrative: Mr. Biggs is a 69 year-old male with psychiatric hx of anxiety, depression and major neurocognitive disorder. He was brought by due to increased confusion. He was found to have multiple PE, started on therapeutic dose of luvox, seen by hematology. Psychiatry is being consulted because pt presented as more anxious. This instructional writer met patient and his who was at bedside. Most collateral information given by . reports there was a drastic change in pt's presentation right after having knee replacement surgery. She reports pt was outgoing, calm, avid reader, who enjoyed conversations of all kind. She reports after surgery, pt mostly in his house, sitting or pacing. She reports he has difficulty making decisions, and overall conversation lack any substance or meaning. reports he paces at times, and repeats same sentence.. help me, help me like a broken record. He stopped reading. Pt has been followed by psychiatrist at [facility], Dr. Noe Avalos. reports he has a number of medication changes. Pt has also been seen by neurology and has been dx with major neurocognitive disorder ( reports they were told initially LBD, but then AD). No hx of visual or auditory hallucinations. also reports some parkinsonism but not Parkinson's disease, he is on levodopa/carvidopa, rivastagmine and namenda. reports two days into his admission, pt all of a sudden and for a day and a half, presented in a much improved condition and pretty much like his old self like he was 6 years ago. She reports she came in the morning to see him and he was calm, sitting in his chair, asked appropriate questions and they were able to have a varied conversation about different topics. Of note, when reviewing his medical record, it is noted that on Friday he was actually reporting to attending that he used to be on cpap and had not used it anymore. And also though this may have been a not particularly impressive change in presentation at the time for the medical team, reports the positive change was clear and for a day or two she got to see what her used to be. This open some hope in terms of trying to figure out what happened that he was much better. When this instructional writer saw pt, pt is sitting in chair. When asked how is he doing he replies I don't know. He appears somewhat restless and attempting to stand up. He has oxygen tubing around him and without appreciation of potential risk for fall or entanglement, he attempts to get up. This instructional writer and his asked him if he was trying to change positions, he stated no but continue to attempt to get up. He then reported to this instructional writer feeling anxious and asked when am I getting more medication? When discussing medication with his , pt often interrupt: no, I don't want any change, that happened six years ago. When asking to elaborate, again pt asked about when he was getting medications. He did not seem to be able to reason with information given nor provide much of a medical or psychiatric history. When standing up, noted some twitching movement on right leg. reports this movement is what she has been told is not parkinson's but parkinsonism. Pt is oriented to month, year, place, vague to situation. Pt is currently on seroquel, spread during the day with total dose of 50mg/day. reports he used to be on 300mg. also reports pt has tried TMS with no effect. ECT was tried once but then patient did not want to re-try. Past Psychiatric History: OP: sees Dr. Noe Avalos from [facility]. 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 Anxiety as acute reaction to exceptional stress Depression Diagnostics Vital Signs (24Hr): Vital Signs - 24 hr 08/04/25 20:00 08/04/25 22:43 08/05/25 04:00 Temperature 97.3 F 97.9 F 98.1 F Pulse Rate 80 64 82 Respiratory Rate 20 20 16 Blood Pressure 134/68 123/69 125/65 Pulse Oximetry 92 94 93 Oxygen Delivery Method Nasal Cannula Nasal Cannula Nasal Cannula Oxygen Flow Rate 3 2 2 08/05/25 07:49 08/05/25 10:20 08/05/25 11:22 Temperature 98.1 F 97.7 F Pulse Rate 91 91 65 Respiratory Rate 20 18 Blood Pressure 103/73 103/73 114/66 Pulse Oximetry 90 L 90 L 94 Oxygen Delivery Method Nasal Cannula Nasal Cannula Oxygen Flow Rate 3 3 08/05/25 15:53 Temperature 97.8 F Pulse Rate 68 Respiratory Rate 16 Blood Pressure 138/76 Pulse Oximetry 97 Oxygen Delivery Method Nasal Cannula Oxygen Flow Rate 3 BMI result Body Mass Index 28.3 Labs 08/05/25 06:43 08/05/25 06:43 Labs: Laboratory Results - last 48 hr 08/04/25 08/05/25 05:16 06:43 WBC 5.9 6.4 RBC 5.24 5.18 Hgb 15.0 14.7 Hct 43.9 43.6 MCV 83.8 84.2 MCH 28.6 28.4 MCHC 34.2 33.7 RDW 13.3 13.2 Plt Count 195 183 MPV 8.7 L 8.5 L Absolute Nucleated RBC 0.000 0.000 Nucleated RBC % (auto) 0.0 0.0 Sodium 140 138 Potassium 3.5 3.6 Chloride 104 105 Carbon Dioxide 26 27 Anion Gap 14 10 L BUN 14 16 Creatinine 0.96 0.87 Estim Creat Clear Calc 88.0 97.1 Estimated GFR > 60 > 60 Random Glucose 102 101 Calcium 8.6 8.6 Imaging Radiology Impressions: ITS Impressions Venous Duplex 08/02/25 09:54 IMPRESSION: No acute deep venous thrombosis interrogated veins and the lower extremity. Negative for DVT.. Electronically signed by: Jake Leyva MD 08/02/2025 10:[address] [facility] Mental Status Exam Mental Status Exam Narrative: Appearance: wearing hospital gown, fair hygiene, restless, attempting to get up, purposeless behavior or due to restlessness. Behavior: anxious and restless limiting engagement. Psychomotor: right leg seems either myoclonic Speech: reduce in content, mostly clear, some latency noted. TP: poverty of thought, derailment TC: feeling anxious, asking for medication Mood: anxious Affect: congruent, constricted SI: none HI: none VH/AH: no overt signs delusions: no overt delusions but seemingly some unrealistic fears such as being locked somewhere Insight/judgment: impaired x 2. Memory/cog: alert, oriented to month, year, place. vague to situation. Medications Medications Current Medications Acetaminophen (Acetaminophen 325 Mg Tablet) 650 mg PO Q6H PRN PRN Reason: Pain, Mild 1-3,fever,headache Atorvastatin Calcium (Atorvastatin Calcium 20 Mg Tablet) 20 mg PO DAILY@1800 [facility] Last Admin: 08/04/25 18:02 Dose: 20 mg Calcium Carbonate (Calcium Carbonate 750 Mg Tab.Chew) 750 mg PO Q4H PRN PRN Reason: Heartburn Carbidopa/Levodopa (Carbidopa/Levodopa 25/100 Tablet) 1 tab PO BID@0900,1800 [facility] Last Admin: 08/05/25 07:44 Dose: 1 tab Clonazepam (Clonazepam 0.5 Mg Tablet) 0.125 mg PO TID PRN PRN Reason: Anxiety Last Admin: 08/04/25 15:06 Dose: 0.125 mg Clonazepam (Clonazepam 0.5 Mg Tablet) 0.25 mg PO TID [facility] Last Admin: 08/05/25 14:00 Dose: 0.25 mg Docusate Sodium (Docusate Sodium 100 Mg Capsule) 200 mg PO DAILY@1800 [facility] Last Admin: 08/04/25 18:02 Dose: 200 mg Enoxaparin Sodium (Enoxaparin Sodium 100 Mg/Ml Syringe) 90 mg 1 mg/kg (90 mg) SUBCUT Q12H [facility] Last Admin: 08/05/25 06:32 Dose: 90 mg Escitalopram Oxalate (Escitalopram Oxalate 5 Mg Tablet) 5 mg PO DAILY [facility] Last Admin: 08/05/25 07:43 Dose: 5 mg Magnesium Hydroxide (Milk Of Magnesia 30 Ml Oral.Susp) 30 ml PO DAILY PRN PRN Reason: Constipation Melatonin (Melatonin 3 Mg Tablet) 6 mg PO BEDTIME [facility] Last Admin: 08/04/25 22:20 Dose: 6 mg Memantine (Memantine Hcl 10 Mg Tablet) 10 mg PO BID@0900,1800 [facility] Last Admin: 08/05/25 07:44 Dose: 10 mg Metoprolol Succinate (Metoprolol Succinate Er 100 Mg Tab.Er.24h) 100 mg PO DAILY [facility]; Protocol Last Admin: 08/05/25 07:44 Dose: 100 mg Mirtazapine (Mirtazapine 7.5 Mg Tablet) 3.75 mg PO BEDTIME [facility] Last Admin: 08/04/25 22:21 Dose: 3.75 mg Polyethylene Glycol (Polyethylene Glycol 3350 17 Gm Powd.Pack) 17 gm PO DAILY [facility] Last Admin: 08/05/25 07:45 Dose: 17 gm Quetiapine Fumarate (Quetiapine Fumarate 25 Mg Tablet) 12.5 mg PO QID [facility] Last Admin: 08/05/25 13:57 Dose: 12.5 mg Rivastigmine Tartrate (Rivastigmine Tartrate 1.5 Mg Capsule) 3 mg PO BID@0900,1800 [facility] Last Admin: 08/05/25 07:43 Dose: 3 mg Sodium Chloride (0.9 % Sodium Chloride Flush 3 Ml Syringe) 3 ml IVFLUSH QSHIFT [facility] Last Admin: 08/05/25 08:04 Dose: 3 ml Sodium Chloride (Sodium Chloride 0.65 % Nasal 44 Ml Sprbtl) 1 spray NOSTRIL-B Q1H PRN PRN Reason: Congestion Tamsulosin HCl (Tamsulosin Hcl 0.4 Mg Capsule) 0.8 mg PO DAILY@1800 [facility] Last Admin: 08/04/25 18:03 Dose: 0.8 mg Trazodone HCl (Trazodone Hcl 100 Mg Tablet) 200 mg PO BEDTIME [facility] Last Admin: 08/04/25 22:20 Dose: 200 mg Allergies Allergies Allergy/AdvReac Type Severity Reaction Status Date / Time No Known Allergies Allergy Verified 07/31/25 14:06 Assessment & Plan Assessment & Plan (1) 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 Biggs is a 69 year-old male with hx of anxiety, depression, major neurocognitive disorder who is currently admitted due to acute PE. Per , pt had drastic change in mentation and ability to function after he had knee replacement. Symptoms appear to be as follows: ambivalance of will/affect (ambitendency), restlessness, poverty of though ( and latency of speech), verbigeration, withdrawn, some degree of negativism (quickly opposed to intervention without much reason or rationale for it). 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 It is not uncommon (and well documented in medical literature) that after surgery 1) underlying cognitive impairments worsen significantly (mostly due to exposure to anesthesia) and 2) that other neuropsychiatric symptoms can arise. It is unclear what may have prompted an improvement in symptoms temporarily during this hospital stay. Only new medication added was sildenafil for pulmonary hypertension (one may speculate as to the effects of this medication on NMDA receptors through indirect regulation of nitric oxide pathways- NMDA being involved in s/s of catatonia). He had been on clonazepam 0.25mg TID, seroquel 12.5mg po QID- with little to not much benefit according to . I do suspect myoclonic/jerk-like movement of right lower extremity may be related to namenda (also an NMDA receptor antagonist which pt has been on according to for over a year). Although namenda can help in some cases of catatonia, it does not seemed to have improve his mood. Of course, this medication was added for underlying cognitive impairment and not mood. He can continue on rivastigmine. Still suspect underlying cognitive impairments (dementia) regardless of s/s of catatonia even if those improve. Also note that certain types of dementia, such as frontotemporal are at increase risk of catatonia. PLAN 1. Treatment of catatonia: will try to target catatonic s/s with ativan rather than clonazepam. will d/c seroquel as therapeutic benefit at this point suspect is minimal if any. will trial 1mg po ativan and advance dose as needed given response. 2. will d/c namenda- mostly as do suspect is cause of myoclonic like movement of right leg. 3. discussed with that they should try again ECT outpatient. Total time managing care of this patient today _45___ minutes.
[2025-08-05 19:59] VITALS: BP 133/77; PULSE 77; RESP 16; TEMP 36.6; O2SAT 92
[2025-08-06] VITALS (10 sets, daily range): BP systolic 108–163; BP diastolic 56–89; PULSE 58–80; RESP 16–20; TEMP 36.2–36.9; O2SAT 89–98
--- NOTE | 2025-08-06 08:15 | P.PNIM_ITS ---
Subjective Subjective Date of Service: 08/06/25 Interval History: Patient seen examined at bedside this morning, after discussions with Psychiatry yesterday, clonazepam switch to Ativan,Seroquel discontinued, Namenda on hold. Patient requiring less oxygen currently at 2.5 L. Review of Systems Review of Systems: Yes all other systems are reviewed and are negative Physical Exam 2 Exam: Exam: General: AxOx2, In respiratory distress on 2.5 L of oxygen, improved Head: AT/NC ENT: Moist mucous membranes Neck: supple CVS; RRR, S1 S2 normal Lungs: decreased bilateral breath sounds Abd: Soft non tender, non distended Ext: No edema and no calf tenderness MSK: moving all 4 limbs Skin: No cyanosis or edema Psych: Cooperative with exam, mild anxiety Neurology: no focal deficit Vital Signs: Vital Signs: Last Vital Signs Temp 97.7 F 08/06/25 08:00 Pulse 71 08/06/25 08:00 Resp 20 08/06/25 08:00 BP 108/63 08/06/25 08:00 Pulse Ox 95 08/06/25 08:00 O2 Del Method Nasal Cannula 08/06/25 08:00 O2 Flow Rate 3 08/06/25 08:00 BMI result Body Mass Index 28.3 Objective Data Active Medications Acetaminophen (Acetaminophen 325 Mg Tablet) 650 mg PO Q6H PRN PRN Reason: Pain, Mild 1-3,fever,headache Atorvastatin Calcium (Atorvastatin Calcium 20 Mg Tablet) 20 mg PO DAILY@1800 [facility] Last Admin: 08/05/25 18:13 Dose: 20 mg Documented By: RENETTA Calcium Carbonate (Calcium Carbonate 750 Mg Tab.Chew) 750 mg PO Q4H PRN PRN Reason: Heartburn Carbidopa/Levodopa (Carbidopa/Levodopa 25/100 Tablet) 1 tab PO BID@0900,1800 [facility] Last Admin: 08/05/25 18:13 Dose: 1 tab Documented By: RENETTA Docusate Sodium (Docusate Sodium 100 Mg Capsule) 200 mg PO DAILY@1800 [facility] Last Admin: 08/05/25 18:13 Dose: 200 mg Documented By: RENETTA Enoxaparin Sodium (Enoxaparin Sodium 100 Mg/Ml Syringe) 90 mg 1 mg/kg (90 mg) SUBCUT Q12H [facility] Last Admin: 08/06/25 06:02 Dose: 90 mg Documented By: RICARDO Escitalopram Oxalate (Escitalopram Oxalate 5 Mg Tablet) 5 mg PO DAILY [facility] Last Admin: 08/05/25 07:43 Dose: 5 mg Documented By: RENETTA Lorazepam (Lorazepam 0.5 Mg Tablet) 0.5 mg PO TID [facility] Magnesium Hydroxide (Milk Of Magnesia 30 Ml Oral.Susp) 30 ml PO DAILY PRN PRN Reason: Constipation Melatonin (Melatonin 3 Mg Tablet) 6 mg PO BEDTIME [facility] Last Admin: 08/05/25 21:31 Dose: 6 mg Documented By: RICARDO Metoprolol Succinate (Metoprolol Succinate Er 100 Mg Tab.Er.24h) 100 mg PO DAILY [facility]; Protocol Last Admin: 08/05/25 07:44 Dose: 100 mg Documented By: RENETTA Polyethylene Glycol (Polyethylene Glycol 3350 17 Gm Powd.Pack) 17 gm PO DAILY [facility] Last Admin: 08/05/25 07:45 Dose: 17 gm Documented By: RENETTA Rivastigmine Tartrate (Rivastigmine Tartrate 1.5 Mg Capsule) 3 mg PO BID@0900,1800 [facility] Last Admin: 08/05/25 18:13 Dose: 3 mg Documented By: RENETTA Sodium Chloride (0.9 % Sodium Chloride Flush 3 Ml Syringe) 3 ml IVFLUSH QSHIFT [facility] Last Admin: 08/06/25 01:17 Dose: Not Given Documented By: RICARDO Non-Admin Reason: Unable to Scan Barcode Sodium Chloride (Sodium Chloride 0.65 % Nasal 44 Ml Sprbtl) 1 spray NOSTRIL-B Q1H PRN PRN Reason: Congestion Tamsulosin HCl (Tamsulosin Hcl 0.4 Mg Capsule) 0.8 mg PO DAILY@1800 [facility] Last Admin: 08/05/25 18:13 Dose: 0.8 mg Documented By: RENETTA Trazodone HCl (Trazodone Hcl 100 Mg Tablet) 200 mg PO BEDTIME [facility] Last Admin: 08/05/25 21:31 Dose: 200 mg Documented By: RICARDO Labs 08/05/25 06:43 08/05/25 06:43 Microbiology Microbiology Results: Microbiology 07/31/25 14:36 Blood Culture - Final Blood - Venous No growth after 5 days. 12/14/25 14:20 Blood Culture - Final Blood - Venous No growth after 5 days. Assessment and Plan (1) Pulmonary embolism: Status: Acute (2) Altered mental status: Status: Acute (3) Hypoxia: Status: Acute (4) Infected inclusion cyst: Status: Acute (5) Cor pulmonale: Status: Acute (6) Pulmonary hypertension: Status: Acute (7) Hypotension: Status: Acute Plan 69-year-old male with history of cognitive impairment, parkinsonism, hypertension, hyperlipidemia, BPH, and severe anxiety/depression, admitted for acute hypoxic respiratory failure secondary to left lower lobe subsegmental pulmonary embolism with evidence of severe pulmonary hypertension and right heart strain, now with transient hypotension and hypoxia requiring increased oxygen and IV fluids, currently hemodynamically improved. Patient started on Sildenafil on 08/03 and given lasix with improvement of respiratory function. Patient with worsening agitation, mental status. Sildenafil discontinued, memantine placed on hold, klonopin and seroquel discontinued on 08/05, starting ativan that day. Acute Pulmonary Embolism with Acute Hypoxic Respiratory Failure, improving on 2.5L of oxygen at this time - imaging reviewed, unable to have thrombectomy done - Continue therapeutic enoxaparin (1 mg/kg BID) for acute PE. - Monitor for clinical decompensation (vitals q2-4h, continuous pulse oximetry, telemetry). - Maintain O2 to keep SpO2 >92%; titrate as needed. - Monitor for signs of shock, RV failure, or need for escalation (consider ICU if instability recurs). - Per family, d/c sildenafil - Thrombophilia workup as per Hem/Onc. - Transition to apixaban when stable and able to take PO reliably. - Monitor for bleeding complications. Pulmonary Hypertension - TTE reviewed - Continue to avoid excessive IV fluids. - Consult pulmonary for management recommendations. - Monitor for arrhythmias, worsening hypoxia, or signs of RV failure. Cognitive Impairment / Parkinsonism - Continue home medications (carbidopa/levodopa, rivastigmine). will hold Namenda at this time - Monitor for delirium; minimize sedating medications. - Reorient as needed; involve family in care. Anxiety/Depression - Continue home psychiatric medications, per psych, discontinued klonopin and seroquel, started on Ativan - Minimize environmental stressors. - Consider psych consult if agitation or mood symptoms worsen. Hypertension, chronic - resume BP meds and adjust accordingly Hyperlipidemia, chronic - Continue statin (atorvastatin or simvastatin as per formulary/med rec). BPH, chronic - Continue tamsulosin. Constipation - Continue bowel regimen. - Monitor for ileus or constipation. QUAL[employer] * VTE: Therapeutic anticoagulation (enoxaparin) * CODE STATUS: Full code * DIET: Regular Total time managing care of this patient today: 45 minutes. Quality Stroke Does the patient have a stroke diagnosis?: No VTE Prior VTE?: No VTE Risk Level:: Medical - moderate - high VTE Device Contraindication: Treatment Not Indicated VTE Drug Contraindication: N/A - Med Ordered
[2025-08-06] MEDS: Metoprolol Succinate ER 100 MG TAB.ER.24H PO (09:15)
--- NOTE | 2025-08-06 10:25 | MHC.CM.PN ---
Addendum entered by Divine Wallace RN 08/06/25 13:21: All acute rehabs denied, as patient is likely unable to participate in 3 hrs therapy/day. Son aware and now requesting STR referrals. No facility preference. Referrals sent via [facility]. Son requesting PT reassessment today. CM reviewed that PT treatment likely will not happen until Friday and their recommendation may not change. If PT does rec STR can try for [facility]. If no rec for STR, he agrees to private pay for STR. He is also aware CM is awaiting call back from Dennise/ANDREA to confirm dc plan. He says he has spoken with Dennise and will be sure she calls CM. Original Note: Met with son at bedside per request. PT recommending home w/ family and new services. However, son would like to privately pay for patient to go to acute rehab, w/ [facility] being first choice. Discussed different levels of PT (home w/ services vs STR vs AR). He understands that patient may not be able to tolerate 3 hrs of therapy a day and may not be able to follow cues. He requested to speak w/ PT. PT aware. Son also provided copies of HCP/POA. S.O. Dennise is HCP and son, Jerel, is POA. LM for Dennise to discuss dc plan. aware.
[2025-08-06] MEDS: 0.9 % Sodium Chloride Flush 3 ML SYRINGE IVFLUSH (20:01)
[2025-08-07 02:59] VITALS: BP 135/63; PULSE 75; RESP 18; TEMP 36.8; O2SAT 93
[2025-08-07 07:47] VITALS: BP 131/66; PULSE 82; RESP 20; TEMP 36.8; O2SAT 94
[2025-08-07] MEDS: Metoprolol Succinate ER 100 MG TAB.ER.24H PO (08:55)
--- NOTE | 2025-08-07 08:56 | P.PNIM_ITS ---
Subjective Subjective Date of Service: 08/07/25 Interval History: Patient seen examined at bedside this morning, patient resting comfortably in bed at this time with supplemental oxygen. Patient mentions that he feels anxious, this time titrating psychiatric medications. We will switch from Lovenox to Eliquis. at bedside Review of Systems Review of Systems: Yes all other systems are reviewed and are negative Physical Exam 2 Exam: Exam: General: AxOx2, In respiratory distress on supplemental oxygen Head: AT/NC ENT: Moist mucous membranes Neck: supple CVS; RRR, S1 S2 normal Lungs: decreased bilateral breath sounds Abd: Soft non tender, non distended Ext: No edema and no calf tenderness MSK: moving all 4 limbs Skin: No cyanosis or edema Psych: Cooperative with exam, mild anxiety Neurology: no focal deficit Vital Signs: Vital Signs: Last Vital Signs Temp 98.2 F 08/07/25 07:47 Pulse 82 08/07/25 07:47 Resp 20 08/07/25 07:47 BP 131/66 08/07/25 07:47 Pulse Ox 94 08/07/25 07:47 O2 Del Method Nasal Cannula 08/07/25 07:47 O2 Flow Rate 4 08/07/25 07:47 BMI result Body Mass Index 28.3 Objective Data Active Medications Acetaminophen (Acetaminophen 325 Mg Tablet) 650 mg PO Q6H PRN PRN Reason: Pain, Mild 1-3,fever,headache Atorvastatin Calcium (Atorvastatin Calcium 20 Mg Tablet) 20 mg PO DAILY@1800 [facility] Last Admin: 08/06/25 18:00 Dose: 20 mg Documented By: MARBIN Calcium Carbonate (Calcium Carbonate 750 Mg Tab.Chew) 750 mg PO Q4H PRN PRN Reason: Heartburn Carbidopa/Levodopa (Carbidopa/Levodopa 25/100 Tablet) 1 tab PO BID@0900,1800 [facility] Last Admin: 08/07/25 08:55 Dose: 1 tab Documented By: BRIAN Docusate Sodium (Docusate Sodium 100 Mg Capsule) 200 mg PO DAILY@1800 [facility] Last Admin: 08/06/25 18:00 Dose: 200 mg Documented By: MARBIN Enoxaparin Sodium (Enoxaparin Sodium 100 Mg/Ml Syringe) 90 mg 1 mg/kg (90 mg) SUBCUT Q12H [facility] Last Admin: 08/07/25 06:46 Dose: 90 mg Documented By: LACY Escitalopram Oxalate (Escitalopram Oxalate 5 Mg Tablet) 5 mg PO DAILY [facility] Last Admin: 08/07/25 08:55 Dose: 5 mg Documented By: BRIAN Lorazepam (Lorazepam 1 Mg Tablet) 1 mg PO TID [facility] Last Admin: 08/07/25 08:55 Dose: 1 mg Documented By: BRIAN Magnesium Hydroxide (Milk Of Magnesia 30 Ml Oral.Susp) 30 ml PO DAILY PRN PRN Reason: Constipation Melatonin (Melatonin 3 Mg Tablet) 6 mg PO BEDTIME [facility] Last Admin: 08/06/25 20:01 Dose: 6 mg Documented By: LACY Metoprolol Succinate (Metoprolol Succinate Er 100 Mg Tab.Er.24h) 100 mg PO DAILY [facility]; Protocol Last Admin: 08/07/25 08:55 Dose: 100 mg Documented By: BRIAN Polyethylene Glycol (Polyethylene Glycol 3350 17 Gm Powd.Pack) 17 gm PO DAILY [facility] Last Admin: 08/06/25 09:16 Dose: 17 gm Documented By: MARBIN Rivastigmine Tartrate (Rivastigmine Tartrate 1.5 Mg Capsule) 3 mg PO BID@0900,1800 [facility] Last Admin: 08/07/25 08:54 Dose: 3 mg Documented By: BRIAN Sodium Chloride (0.9 % Sodium Chloride Flush 3 Ml Syringe) 3 ml IVFLUSH QSHIFT [facility] Last Admin: 08/06/25 20:01 Dose: 3 ml Documented By: LACY Sodium Chloride (Sodium Chloride 0.65 % Nasal 44 Ml Sprbtl) 1 spray NOSTRIL-B Q1H PRN PRN Reason: Congestion Tamsulosin HCl (Tamsulosin Hcl 0.4 Mg Capsule) 0.8 mg PO DAILY@1800 [facility] Last Admin: 08/06/25 18:00 Dose: 0.8 mg Documented By: MARBIN Trazodone HCl (Trazodone Hcl 100 Mg Tablet) 200 mg PO BEDTIME [facility] Last Admin: 08/06/25 20:01 Dose: 200 mg Documented By: LACY Labs 08/05/25 06:43 08/05/25 06:43 Assessment and Plan (1) Pulmonary embolism: Status: Acute (2) Altered mental status: Status: Acute (3) Hypoxia: Status: Acute (4) Infected inclusion cyst: Status: Acute (5) Cor pulmonale: Status: Acute (6) Pulmonary hypertension: Status: Acute (7) Hypotension: Status: Acute Plan 69-year-old male with history of cognitive impairment, parkinsonism, hypertension, hyperlipidemia, BPH, and severe anxiety/depression, admitted for acute hypoxic respiratory failure secondary to left lower lobe subsegmental pulmonary embolism with evidence of severe pulmonary hypertension and right heart strain, now with transient hypotension and hypoxia requiring increased oxygen and IV fluids, currently hemodynamically improved. Patient started on Sildenafil on 08/03 and given lasix with improvement of respiratory function. Patient with worsening agitation, mental status. Sildenafil discontinued, memantine placed on hold, klonopin and seroquel discontinued on 08/05, starting ativan that day. Acute Pulmonary Embolism with Acute Hypoxic Respiratory Failure - imaging reviewed, unable to have thrombectomy done - Continue therapeutic enoxaparin (1 mg/kg BID) for acute PE. - Monitor for clinical decompensation (vitals q2-4h, continuous pulse oximetry, telemetry). - Maintain O2 to keep SpO2 >92%; titrate as needed. - Monitor for signs of shock, RV failure, or need for escalation (consider ICU if instability recurs). - Per family, d/c sildenafil - Thrombophilia workup as per Hem/Onc. - Transition to apixaban today. - Monitor for bleeding complications. Pulmonary Hypertension - TTE reviewed - Continue to avoid excessive IV fluids. - Consult pulmonary for management recommendations. - Monitor for arrhythmias, worsening hypoxia, or signs of RV failure. Cognitive Impairment / Parkinsonism - Continue home medications (carbidopa/levodopa, rivastigmine). will hold Namenda at this time - Monitor for delirium; minimize sedating medications. - Reorient as needed; involve family in care. Anxiety/Depression - Continue home psychiatric medications, per psych, discontinued klonopin and seroquel, started on Ativan - Minimize environmental stressors. - Consider psych consult if agitation or mood symptoms worsen. Hypertension, chronic - resume BP meds and adjust accordingly Hyperlipidemia, chronic - Continue statin (atorvastatin or simvastatin as per formulary/med rec). BPH, chronic - Continue tamsulosin. Constipation - Continue bowel regimen. - Monitor for ileus or constipation. QUALITY METRICS * VTE: Therapeutic anticoagulation (enoxaparin) * CODE STATUS: Full code * DIET: Regular Total time managing care of this patient today: 45 minutes. Quality Stroke Does the patient have a stroke diagnosis?: No VTE Prior VTE?: No VTE Risk Level:: Medical - moderate - high VTE Device Contraindication: Treatment Not Indicated VTE Drug Contraindication: N/A - Med Ordered
[2025-08-07] MEDS: 0.9 % Sodium Chloride Flush 3 ML SYRINGE IVFLUSH ×2 (09:02→21:39)
[2025-08-07 11:00] VITALS: BP 108/65; PULSE 64; RESP 20; TEMP 36.7; O2SAT 94
--- NOTE | 2025-08-07 11:54 | MHC.CM.PN ---
Met with /HCP Dennise at bedside. Dennise is aware of current PT recommendation for home w/ services. She is aware son Jerel requesting STR and is in agreement. PT will see patient tomorrow. If no change in recommendation they will private pay. No facility preference.
[2025-08-07 15:33] VITALS: BP 148/82; PULSE 73; RESP 20; TEMP 36.3; O2SAT 93
[2025-08-07 19:14] VITALS: BP 144/84; PULSE 73; RESP 18; TEMP 37.2; O2SAT 92
[2025-08-07 23:14] VITALS: BP 103/52; PULSE 68; RESP 17; TEMP 36.6; O2SAT 93
[2025-08-08] VITALS (7 sets, daily range): BP systolic 119–162; BP diastolic 66–94; PULSE 67–95; RESP 16–18; TEMP 36.4–37; O2SAT 91–96
[2025-08-08] MEDS: Metoprolol Succinate ER 100 MG TAB.ER.24H PO (08:30)
[2025-08-08] MEDS: 0.9 % Sodium Chloride Flush 3 ML SYRINGE IVFLUSH ×2 (08:41→17:40)
--- NOTE | 2025-08-08 11:18 | P.CNPS_ITS ---
History of Present Illness Date of Service: 08/08/2025 Chief Complaint: Acute hypoxic respiratory failure, subsegmental PE Reason for Consult: f/u Requesting physician: Dion Mike Discussed with referring provider: Yes Sources of Information: patient interviewed, chart reviewed and crisis/core team assessment reviewed Additional Sources of Information: by bedside HPI Narrative: Interim Hx: reports pt presented as anxious over the weekend and asking for additional medication. reports no significant change in presentation. Pt in bed. He reports he feels sedated at times and anxious and also asking for medications. He presents as very unsteady on his feet- which reports has been ongoing. Pt easily gets confused as we discussed medications and asks this display card writer several times about medication changes. reports her understanding is that pt had some difficulty sleeping. We discussed going back to clonazepam as no significant change in presentation with ativan has been noted. Seroquel had been discontinued, at this time thinks seroquel may not be providing much of a difference. Past Psychiatric History: OP: sees Dr. Noe Avalos from [place]. 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 Anxiety as acute reaction to exceptional stress Depression Diagnostics Vital Signs (24Hr): Vital Signs - 24 hr 08/07/25 15:33 08/07/25 19:14 08/07/25 23:14 Temperature 97.3 F 99 F 97.9 F Pulse Rate 73 73 68 Respiratory Rate 20 18 17 Blood Pressure 148/82 H 144/84 H 103/52 L Pulse Oximetry 93 92 93 Oxygen Delivery Method Nasal Cannula Nasal Cannula Nasal Cannula Oxygen Flow Rate 3 3 3 08/08/25 03:05 08/08/25 07:20 Temperature 98.6 F 97.6 F Pulse Rate 67 72 Respiratory Rate 17 18 Blood Pressure 125/75 162/94 H Pulse Oximetry 91 L 96 Oxygen Delivery Method Nasal Cannula Nasal Cannula Oxygen Flow Rate 3 4 BMI result Body Mass Index 28.3 Labs 08/05/25 06:43 08/05/25 06:43 Imaging Radiology Impressions: ITS Impressions Venous Duplex 08/02/25 09:54 IMPRESSION: No acute deep venous thrombosis interrogated veins and the lower extremity. Negative for DVT.. Electronically signed by: Jake Leyva MD 08/02/2025 10:30 AM [facility] [place] Status Exam Mental Status Exam Narrative: Appearance: wearing hospital gown, fair hygiene, restless, attempting to get up, purposeless behavior or due to restlessness. Behavior: pt appears to be conversing more with this display card writer although clearly getting confused as to medication changes Psychomotor: right leg seems either myoclonic, bilat action tremors, poor balance when standing up, which reports has been like this for a long time. Speech: mostly clear, less latency, more spontaneous. TP: some derailment at times TC: feeling anxious, asking for medication, also reporting feeling sleepy with medication, I don't like how I feel Mood: anxious Affect: congruent, constricted SI: none HI: none VH/AH: no overt signs delusions: no overt delusions. Insight/judgment: impaired x 2. Memory/cog: alert, oriented to month, year, place. vague to situation. very impaired short term memory and understanding which increases his anxiety. Medications Medications Current Medications Acetaminophen (Acetaminophen 325 Mg Tablet) 650 mg PO Q6H PRN PRN Reason: Pain, Mild 1-3,fever,headache Apixaban (Apixaban 5 Mg Tablet) 10 mg PO BID [facility] Stop: 08/14/25 09:01 Last Admin: 08/08/25 08:30 Dose: 10 mg Atorvastatin Calcium (Atorvastatin Calcium 20 Mg Tablet) 20 mg PO DAILY@1800 [facility] Last Admin: 08/07/25 17:53 Dose: 20 mg Calcium Carbonate (Calcium Carbonate 750 Mg Tab.Chew) 750 mg PO Q4H PRN PRN Reason: Heartburn Carbidopa/Levodopa (Carbidopa/Levodopa 25/100 Tablet) 1 tab PO BID@0900,1800 [facility] Last Admin: 08/08/25 08:30 Dose: 1 tab Docusate Sodium (Docusate Sodium 100 Mg Capsule) 200 mg PO DAILY@1800 [facility] Last Admin: 08/07/25 17:55 Dose: Not Given Escitalopram Oxalate (Escitalopram Oxalate 5 Mg Tablet) 5 mg PO DAILY [facility] Last Admin: 08/08/25 08:30 Dose: 5 mg Lorazepam (Lorazepam 1 Mg Tablet) 1 mg PO TID [facility] Last Admin: 08/08/25 08:30 Dose: 1 mg Magnesium Hydroxide (Milk Of Magnesia 30 Ml Oral.Susp) 30 ml PO DAILY PRN PRN Reason: Constipation Melatonin (Melatonin 3 Mg Tablet) 6 mg PO BEDTIME [facility] Last Admin: 08/07/25 21:37 Dose: 6 mg Metoprolol Succinate (Metoprolol Succinate Er 100 Mg Tab.Er.24h) 100 mg PO DAILY [facility]; Protocol Last Admin: 08/08/25 08:30 Dose: 100 mg Polyethylene Glycol (Polyethylene Glycol 3350 17 Gm Powd.Pack) 17 gm PO DAILY [facility] Last Admin: 08/08/25 08:33 Dose: Not Given Rivastigmine Tartrate (Rivastigmine Tartrate 1.5 Mg Capsule) 3 mg PO BID@0900,1800 [facility] Last Admin: 08/08/25 08:31 Dose: 3 mg Sodium Chloride (0.9 % Sodium Chloride Flush 3 Ml Syringe) 3 ml IVFLUSH QSHIFT [facility] Last Admin: 08/08/25 08:41 Dose: 3 ml Sodium Chloride (Sodium Chloride 0.65 % Nasal 44 Ml Sprbtl) 1 spray NOSTRIL-B Q1H PRN PRN Reason: Congestion Tamsulosin HCl (Tamsulosin Hcl 0.4 Mg Capsule) 0.8 mg PO DAILY@1800 [facility] Last Admin: 08/07/25 17:53 Dose: 0.8 mg Trazodone HCl (Trazodone Hcl 100 Mg Tablet) 200 mg PO BEDTIME [facility] Last Admin: 08/07/25 21:38 Dose: 200 mg Allergies Allergies Allergy/AdvReac Type Severity Reaction Status Date / Time No Known Allergies Allergy Verified 07/31/25 14:06 Assessment & Plan Assessment & Plan (1) Major neurocognitive disorder: Status: Acute Code(s): F03.90 - Unspecified dementia, unspecified severity, without behavioral disturbance, psychotic disturbance, mood disturbance, and anxiety Plan Mr. Bgigs is a 69 year-old male with hx of anxiety, depression, major neurocognitive disorder who is currently admitted due to acute PE. Per , pt had drastic change in mentation and ability to function after he had knee replacement. Symptoms appear to be as follows: ambivalance of will/affect (ambitendency), restlessness, poverty of though ( and latency of speech), verbigeration, withdrawn, some degree of negativism (quickly opposed to intervention without much reason or rationale for it). 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 It is not uncommon (and well documented in medical literature) that after surgery 1) underlying cognitive impairments worsen significantly (mostly due to exposure to anesthesia) and 2) that other neuropsychiatric symptoms can arise. It is unclear what may have prompted an improvement in symptoms temporarily during this hospital stay. Only new medication added was sildenafil for pulmonary hypertension (one may speculate as to the effects of this medication on NMDA receptors through indirect regulation of nitric oxide pathways- NMDA being involved in s/s of catatonia). He had been on clonazepam 0.25mg TID, seroquel 12.5mg po QID- with little to not much benefit according to . I do suspect myoclonic/jerk-like movement of right lower extremity may be related to namenda (also an NMDA receptor antagonist which pt has been on according to for over a year). Although namenda can help in some cases of catatonia, it does not seemed to have improve his mood. Of course, this medication was added for underlying cognitive impairment and not mood. He can continue on rivastigmine. Still suspect underlying cognitive impairments (dementia) regardless of s/s of catatonia even if those improve. Also note that certain types of dementia, such as frontotemporal are at increase risk of catatonia. PLAN 08/08/25- pt had trial of ativan TID, which reports no significant improvement. Pt noted to have more significant impairments in ability to retain new information and confusion about information given which then in turn increases his anxiety. given that no significant difference, will switch back to clonazepam. NOted action tremors, unsteady gait/balance when standing up, which reports has been present for some time. Decision to switch back to clonazepam, restart remeron low dose he was on. continue trazodone. namenda- can continue to hold. Total time managing care of this patient today ____ minutes.
--- NOTE | 2025-08-08 12:42 | MHC.CM.PN ---
Addendum entered by Delia Mohr 08/08/25 15:01: IMM was addressed with Patient and HCP. Addendum entered by Delia Mohr 08/08/25 14:58: CM met with Patient and HCP/Dennise regarding dc planning; they have accepted a private room bed offer at [facility]. Per MD, anticipate Patient will be ready for dc tomorrow. Original Note: Per MD, Patient does not have capacity and HCP is invoked. CM spoke with HCP/Dennise @ listed # and she is in agreement with STR but wants to involve other family members, and Patient in final decision.Dennise approved a local SNF search, which has been initiated. GILDARDO will follow.
[2025-08-08] MEDS: clonazePAM ODT 0.125 MG TAB.RAPDIS 0.25 MG PO ×3 (12:57→17:26)
--- NOTE | 2025-08-08 14:08 | P.PNIM_ITS ---
Subjective Subjective Date of Service: 08/08/25 Interval History: Patient seen examined at bedside this morning, patient pleasantly demented at this time, awaiting for possible discharge to senior care therapy. Discussed with with healthcare proxy for safe discharge to possible rehab. Seen recently by Psychiatry, switch back to clonazepam, start Remeron low-dose, Namenda continues to be on hold. Seen by physical therapy suggested on possible short-term rehab to help with balance, endurance and functional mobility, however patient states that he wishes to go home. Review of Systems Review of Systems: Yes all other systems are reviewed and are negative Physical Exam 2 Exam: Exam: General: AxOx2, In respiratory distress on supplemental oxygen Head: AT/NC ENT: Moist mucous membranes Neck: supple CVS; RRR, S1 S2 normal Lungs: decreased bilateral breath sounds Abd: Soft non tender, non distended Ext: No edema and no calf tenderness MSK: moving all 4 limbs Skin: No cyanosis or edema Psych: Cooperative with exam, mild anxiety Neurology: no focal deficit Vital Signs: Vital Signs: Last Vital Signs Temp 97.6 F 08/08/25 11:40 Pulse 67 08/08/25 11:40 Resp 18 08/08/25 11:40 BP 119/66 08/08/25 11:40 Pulse Ox 92 08/08/25 11:40 O2 Del Method Nasal Cannula 08/08/25 11:40 O2 Flow Rate 3 08/08/25 11:40 BMI result Body Mass Index 28.3 Objective Data Active Medications Acetaminophen (Acetaminophen 325 Mg Tablet) 650 mg PO Q6H PRN PRN Reason: Pain, Mild 1-3,fever,headache Apixaban (Apixaban 5 Mg Tablet) 10 mg PO BID [facility] Stop: 08/14/25 09:01 Last Admin: 08/08/25 08:30 Dose: 10 mg Documented By: KAREN Atorvastatin Calcium (Atorvastatin Calcium 20 Mg Tablet) 20 mg PO DAILY@1800 [facility] Last Admin: 08/07/25 17:53 Dose: 20 mg Documented By: BRIAN Calcium Carbonate (Calcium Carbonate 750 Mg Tab.Chew) 750 mg PO Q4H PRN PRN Reason: Heartburn Carbidopa/Levodopa (Carbidopa/Levodopa 25/100 Tablet) 1 tab PO BID@0900,1800 [facility] Last Admin: 08/08/25 08:30 Dose: 1 tab Documented By: KAREN Clonazepam (Clonazepam Odt 0.125 Mg Tab.Rapdis) 0.25 mg PO TID@0800,1300,1800 [facility] Last Admin: 08/08/25 12:57 Dose: 0.25 mg Documented By: KAREN Comments: verified with Joyce CHARLES. barcode did not scan Clonazepam (Clonazepam Odt 0.125 Mg Tab.Rapdis) 0.25 mg PO TID PRN PRN Reason: severe, anxious mood Docusate Sodium (Docusate Sodium 100 Mg Capsule) 200 mg PO DAILY@1800 [facility] Last Admin: 08/07/25 17:55 Dose: Not Given Documented By: BRIAN Non-Admin Reason: Patient Refused Escitalopram Oxalate (Escitalopram Oxalate 5 Mg Tablet) 5 mg PO DAILY [facility] Last Admin: 08/08/25 08:30 Dose: 5 mg Documented By: KAREN Magnesium Hydroxide (Milk Of Magnesia 30 Ml Oral.Susp) 30 ml PO DAILY PRN PRN Reason: Constipation Melatonin (Melatonin 3 Mg Tablet) 6 mg PO BEDTIME [facility] Last Admin: 08/07/25 21:37 Dose: 6 mg Documented By: RICK Metoprolol Succinate (Metoprolol Succinate Er 100 Mg Tab.Er.24h) 100 mg PO DAILY [facility]; Protocol Last Admin: 08/08/25 08:30 Dose: 100 mg Documented By: KAREN Mirtazapine (Mirtazapine 7.5 Mg Tablet) 3.75 mg PO BEDTIME [facility] Polyethylene Glycol (Polyethylene Glycol 3350 17 Gm Powd.Pack) 17 gm PO DAILY [facility] Last Admin: 08/08/25 08:33 Dose: Not Given Documented By: KAREN Non-Admin Reason: Patient Refused Rivastigmine Tartrate (Rivastigmine Tartrate 1.5 Mg Capsule) 3 mg PO BID@0900,1800 [facility] Last Admin: 08/08/25 08:31 Dose: 3 mg Documented By: KAREN Sodium Chloride (0.9 % Sodium Chloride Flush 3 Ml Syringe) 3 ml IVFLUSH QSHIFT [facility] Last Admin: 08/08/25 08:41 Dose: 3 ml Documented By: KAREN Sodium Chloride (Sodium Chloride 0.65 % Nasal 44 Ml Sprbtl) 1 spray NOSTRIL-B Q1H PRN PRN Reason: Congestion Tamsulosin HCl (Tamsulosin Hcl 0.4 Mg Capsule) 0.8 mg PO DAILY@1800 [facility] Last Admin: 08/07/25 17:53 Dose: 0.8 mg Documented By: BRIAN Trazodone HCl (Trazodone Hcl 100 Mg Tablet) 200 mg PO BEDTIME [facility] Last Admin: 08/07/25 21:38 Dose: 200 mg Documented By: RICK Labs 08/05/25 06:43 08/05/25 06:43 Assessment and Plan (1) Pulmonary embolism: Status: Acute (2) Altered mental status: Status: Acute (3) Hypoxia: Status: Acute (4) Infected inclusion cyst: Status: Acute (5) Cor pulmonale: Status: Acute (6) Pulmonary hypertension: Status: Acute (7) Hypotension: Status: Acute Plan 69-year-old male with history of cognitive impairment, parkinsonism, hypertension, hyperlipidemia, BPH, and severe anxiety/depression, admitted for acute hypoxic respiratory failure secondary to left lower lobe subsegmental pulmonary embolism with evidence of severe pulmonary hypertension and right heart strain, now with transient hypotension and hypoxia requiring increased oxygen and IV fluids, currently hemodynamically improved. Patient started on Sildenafil on 08/03 and given lasix with improvement of respiratory function. Patient with worsening agitation, mental status. Sildenafil discontinued, memantine placed on hold, klonopin and seroquel discontinued on 08/05, starting ativan that day. Acute Pulmonary Embolism with Acute Hypoxic Respiratory Failure - imaging reviewed, unable to have thrombectomy done - Continue therapeutic enoxaparin (1 mg/kg BID) for acute PE. - Monitor for clinical decompensation (vitals q2-4h, continuous pulse oximetry, telemetry). - Maintain O2 to keep SpO2 >92%; titrate as needed. - Monitor for signs of shock, RV failure, or need for escalation (consider ICU if instability recurs). - Per family, d/c sildenafil - Thrombophilia workup as per Hem/Onc. - Continue apixaban, follow up with Hem/Onc as outpatient - Monitor for bleeding complications. Pulmonary Hypertension - TTE reviewed - Continue to avoid excessive IV fluids. - Consult pulmonary for management recommendations. - Monitor for arrhythmias, worsening hypoxia, or signs of RV failure. Cognitive Impairment / Parkinsonism - Continue home medications (carbidopa/levodopa, rivastigmine). will hold Namenda at this time - Monitor for delirium; minimize sedating medications. - Reorient as needed; involve family in care. Anxiety/Depression - Continue home psychiatric medications, per psych, d/c Ativan, restarted klonopin. initiate low dose remeron. - Minimize environmental stressors. - Consider psych consult if agitation or mood symptoms worsen. Hypertension, chronic - resume BP meds and adjust accordingly Hyperlipidemia, chronic - Continue statin (atorvastatin or simvastatin as per formulary/med rec). BPH, chronic - Continue tamsulosin. Constipation - Continue bowel regimen. - Monitor for ileus or constipation. Disposition: Patient with cognitive dysfunction, unable to assess risks versus benefits of any proposed medication treatment. Case and plans for possible discharge to short-term rehab discussed with patient's healthcare proxy () [employer] * VTE: Therapeutic anticoagulation (enoxaparin) * CODE STATUS: Full code * DIET: Regular Total time managing care of this patient today: 45 minutes. Quality Stroke Does the patient have a stroke diagnosis?: No VTE Prior VTE?: No VTE Risk Level:: Medical - moderate - high VTE Device Contraindication: Treatment Not Indicated VTE Drug Contraindication: N/A - Med Ordered
--- NOTE | 2025-08-08 18:52 | PC.NURSE ---
turning off bed alarm and removing chair alarm. educated several times that pt is high fall risk and the interventions in place to keep pt safe from falls.
[2025-08-09 04:00] VITALS: BP 123/72; PULSE 73; RESP 17; TEMP 36.6; O2SAT 3
[2025-08-09 07:15] VITALS: BP 143/78; PULSE 92; RESP 18; TEMP 36.6; O2SAT 93
[2025-08-09] MEDS: Metoprolol Succinate ER 100 MG TAB.ER.24H PO (07:55)
[2025-08-09] MEDS: clonazePAM ODT 0.125 MG TAB.RAPDIS 0.25 MG PO (07:55)
[2025-08-09] MEDS: 0.9 % Sodium Chloride Flush 3 ML SYRINGE IVFLUSH (08:09)
--- NOTE | 2025-08-09 10:43 | MHC.CM.PN ---
Per ROUNDS, Patient has been medically cleared for dc to SNF/STR today. Patient will dc to [facility] today at 1PM, via [facility]. HCP is invoked; GILDARDO spoke with ANDREA/Dennise @ [phone] and informed her of the dc plan, as we had discussed earlier.
--- NOTE | 2025-08-09 10:49 | PM.DS ---
DS: Providers Provider Date of admission: 07/31/25 17:31 Date of discharge: 08/09/25 Primary care physician: Liz Cherry NP Consults: 07/31/25 17:31 Consult to Hematology / Oncology Routine Consulting Provider: [facility] Oncology/Hematology Reason for consultation: new PE Has provider been notified: No Consult to Pulmonology Routine Consulting Provider: [facility] Pulmonology Services Reason for consultation: new PE; pulm HTN Has provider been notified: No 08/01/25 09:56 Consult to Cardiology Routine Consulting Provider: [facility] Cardiovascular Specialists Reason for consultation: subseg PE, hypotensive, pending cardio appt outpatient with Dr. Smith. 08/05/25 12:31 Consult to Psychiatry Routine Consulting Provider: [facility] Psych Covering Reason for consultation: anxiety Has provider been notified: No DS: Diagnosis Discharge Diagnosis (1) Pulmonary embolism: Status: Acute (2) Altered mental status: Status: Acute (3) Hypoxia: Status: Acute (4) Infected inclusion cyst: Status: Acute (5) Cor pulmonale: Status: Acute (6) Pulmonary hypertension: Status: Acute (7) Hypotension: Status: Acute DS: Summary Hospital Course Hospital Course: 69-year-old male history of cognitive impairment, parkinsonism, hypertension, BPH who was brought in by his due to increased anxiety and more confusion than usual. On arrival in the emergency department he was noted to be hypoxic with an oxygen saturation of 83% on room air. He was placed on 4 L nasal cannula to bring oxygen into the low to mid 90s. History was primarily obtained from the patient's at the bedside due to patient's underlying severe anxiety and cognitive impairment. She reports he has had 6 weeks of shortness of breath which has limited his activity. He is typically very sedentary but he does walk on a treadmill daily, over the past 6 weeks his endurance has gradually decreased until he is was unable to do any walking at all. Is unclear if the patient has been experiencing any chest pain or palpitations. He was seen by his [place] primary care provider who ordered an EKG which was reportedly abnormal. That was followed up with an echocardiogram on July 22 which showed evidence of severe pulmonary hypertension. In the ED ddimer was elevated so a CTA was obtained which showed left lower lobe subsegmental pulmonary emboli with borderline findings raising the possibility of developing right ventricular strain. BNP 2058, initial troponin 9.5, repeat pending. There have been no recent surgery, trauma, or travel. No known malignancy. In the ED, the patient was treated with therapeutic Lovenox. Of note patient is very anxious and restless throughout exam, he has been unable to tolerate being on wet finisher. Hospital Course Patient admitted to telemetry where monitor failed to demonstrate any acute dysrhythmias. He was seen in consultation by Psychiatry who recommended clonazepam and low-dose Remeron. Namenda was continued on hold. He was switch from Lovenox to Eliquis without issue. At this point in time he is medically acceptable for transfer to SNF; his stay will likely be less than 30 days given his severe anxiety Time Attestation Discharge Coordination Time (in mins): 35 Quality: Safe Use of Opioids Does Pt have an Active Cancer Diagnosis on the Problem List?: No Quality: Stroke Does the patient have a stroke diagnosis?: No Physical Exam Vital Signs: Vital Signs: Last Vital Signs Temp 97.9 F 08/09/25 07:15 Pulse 92 08/09/25 07:15 Resp 18 08/09/25 07:15 BP 143/78 H 08/09/25 07:15 Pulse Ox 93 08/09/25 07:15 O2 Del Method Nasal Cannula 08/09/25 07:15 O2 Flow Rate 3 08/09/25 07:15 BMI result Body Mass Index 28.3 Const: Other: Awake pleasantly confused Resp: Other: Clear to auscultation bilaterally no rales rhonchi or wheezes Cardio: Other: No S4; positive S1-S2; no S3 murmurs rubs or gallops GI: Other: Soft nontender nondistended normoactive bowel sounds Extrem: Other: No edema bilaterally Discharge Plan Discharge Anticipated Discharge Date/Time: 08/09/25 10:43 Patient Disposition: Xfer SNF Discharge Diagnosis: Left subsegmental pulmonary embolism Referrals: [facility]ind[facility] Vergara [Outside] - 1 Week Liz Cherry NP [Primary Care Provider, Medical] - 1 Week Discharge Medications: New Eliquis 5 mg Tablet 10 mg PO BID Qty: 11 0RF Continued quetiapine 25 mg tablet 12.5 mg PO QID tamsulosin 0.4 mg capsule 0.8 mg PO DAILY@1800 metoprolol succinate 100 mg Tablet Extended Release 24 Hr 100 mg PO DAILY melatonin 5 mg Tablet 5 mg PO BEDTIME PreserVision AREDS 2,148 mcg-113 mg-45 mg-17.4mg Tablet 1 tab PO BID@0900,1800 Rx Instructions: administer with AM and PM meals clonazepam 0.5 mg Tablet 0.125 mg PO TID PRN (Reason: Anxiety) clonazepam 0.5 mg Tablet 0.25 mg PO TID@1000,1400,1800 Rx Instructions: administer 30 minutes before bedtime aspirin 81 mg Tablet,Delayed Release (Dr/Ec) 81 mg PO DAILY simvastatin 40 mg Tablet 40 mg PO DAILY@1800 polyethylene glycol 3350 [Miralax] 17 gram/dose Powder 17 g PO DAILY carbidopa-levodopa [Sinemet] 25-100 mg Tablet 1 tab PO BID@0900,1800 rivastigmine tartrate 3 mg Capsule 3 mg PO BID@0900,1800 escitalopram oxalate 10 mg Tablet 5 mg PO DAILY memantine 10 mg Tablet 10 mg PO BID@0900,1800 mirtazapine 7.5 mg Tablet 3.75 mg PO BEDTIME diclofenac sodium 1 % Gel 2 g TOPICAL DAILY Rx Instructions: APPLY TO RIGHT KNEE trazodone 100 mg tablet 200 mg PO BEDTIME docusate sodium [Colace] 100 mg capsule 200 mg PO DAILY@1800 Discharge Orders: Discharge Order (Routine); Ordered 08/09/25 Ordered By: Lázaro Ellison Diet: Advance to usual diet Activity on Discharge: As tolerated Stand Alone Forms: Patient Portal Discharge page Print Language: Swedish Care Plan Goals: Patient has been started on Eliquis 10 mg b.i.d. last dose 08/14/2025 17:00. Should start Eliquis 5 mg b.i.d. 08/15/2020 05:00 Health Concerns: Continue all meds as listed on transfer summary Plan of Treatment: As per receiving facility Assessment: See discharge summary
[2025-08-09 11:27] VITALS: BP 136/70; PULSE 68; RESP 18; TEMP 36.6; O2SAT 92
--- NOTE | 2025-08-09 12:36 | PM.PSYCN ---
History of Present Illness Date of Service: 08/09/2025 Chief Complaint: Acute hypoxic respiratory failure, subsegmental PE Reason for Consult: f/u Discussed with referring provider: Yes Sources of Information: patient interviewed, chart reviewed and crisis/core team assessment reviewed HPI Narrative: Interim Hx: pt is up (does have tendency to need to pace or stand up). He is about to eat and seems calmer. More restless as this science writer entered room and he asked questions about medications and treatment and asked if this science writer could get anxiety medication. He evidently struggles with comprehending information and retaining it. In this sense he does NOT show capacity to make medical decisions. He is tolerating clonazepam well, however, per continues to present as anxious. we discussed increasing dose of clonazepam. Past Psychiatric History: OP: sees Dr. Noe Avalos from [place]. 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 Anxiety as acute reaction to exceptional stress Depression Diagnostics Vital Signs (24Hr): Vital Signs - 24 hr 08/08/25 15:07 08/08/25 19:34 08/08/25 23:44 Temperature 97.8 F 98.1 F 98.3 F Pulse Rate 82 74 95 Respiratory Rate 18 16 16 Blood Pressure 148/70 H 134/74 145/83 H Pulse Oximetry 96 94 95 Oxygen Delivery Method Nasal Cannula Nasal Cannula Nasal Cannula Oxygen Flow Rate 4 3 3 08/09/25 04:00 08/09/25 07:15 08/09/25 11:27 Temperature 97.8 F 97.9 F 97.8 F Pulse Rate 73 92 68 Respiratory Rate 17 18 18 Blood Pressure 123/72 143/78 H 136/70 Pulse Oximetry 3 L 93 92 Oxygen Delivery Method Nasal Cannula Nasal Cannula Nasal Cannula Oxygen Flow Rate 3 3 BMI result Body Mass Index 28.3 Labs 08/05/25 06:43 08/05/25 06:43 Imaging Radiology Impressions: ITS Impressions Venous Duplex 08/02/25 09:54 IMPRESSION: No acute deep venous thrombosis interrogated veins and the lower extremity. Negative for DVT.. Electronically signed by: Jake Leyva MD 08/02/2025 10:30 AM [facility] [place] Mental Status Exam Mental Status Exam Narrative: Appearance: wearing hospital gown, fair hygiene, restless, attempting to get up, purposeless behavior or due to restlessness. Behavior: pt appears to be conversing more with this science writer although clearly getting confused as to medication changes Psychomotor: right leg seems either myoclonic, bilat action tremors, poor balance when standing up, which reports has been like this for a long time. Speech: mostly clear, less latency, more spontaneous. TP: some derailment at times TC: reports feeling anxious and needing medication, but appears calmer. Mood: anxious Affect: less anxious than before, constricted SI: none HI: none VH/AH: no overt signs delusions: no overt delusions. Insight/judgment: impaired x 2. Memory/cog: alert, oriented to month, year, place. vague to situation. very impaired short term memory and understanding which increases his anxiety. Medications Medications Current Medications Acetaminophen (Acetaminophen 325 Mg Tablet) 650 mg PO Q6H PRN PRN Reason: Pain, Mild 1-3,fever,headache Apixaban (Apixaban 5 Mg Tablet) 10 mg PO BID [facility] Stop: 08/14/25 09:01 Last Admin: 08/09/25 07:54 Dose: 10 mg Atorvastatin Calcium (Atorvastatin Calcium 20 Mg Tablet) 20 mg PO DAILY@1800 [facility] Last Admin: 08/08/25 17:27 Dose: 20 mg Calcium Carbonate (Calcium Carbonate 750 Mg Tab.Chew) 750 mg PO Q4H PRN PRN Reason: Heartburn Carbidopa/Levodopa (Carbidopa/Levodopa 25/100 Tablet) 1 tab PO BID@0900,1800 [facility] Last Admin: 08/09/25 07:55 Dose: 1 tab Clonazepam (Clonazepam Odt 0.125 Mg Tab.Rapdis) 0.25 mg PO TID@0800,1300,1800 [facility] Last Admin: 08/09/25 07:55 Dose: 0.25 mg Clonazepam (Clonazepam Odt 0.125 Mg Tab.Rapdis) 0.25 mg PO TID PRN PRN Reason: severe, anxious mood Last Admin: 08/08/25 15:17 Dose: 0.25 mg Docusate Sodium (Docusate Sodium 100 Mg Capsule) 200 mg PO DAILY@1800 [facility] Last Admin: 08/08/25 17:29 Dose: 200 mg Escitalopram Oxalate (Escitalopram Oxalate 5 Mg Tablet) 5 mg PO DAILY [facility] Last Admin: 08/09/25 07:55 Dose: 5 mg Magnesium Hydroxide (Milk Of Magnesia 30 Ml Oral.Susp) 30 ml PO DAILY PRN PRN Reason: Constipation Melatonin (Melatonin 3 Mg Tablet) 6 mg PO BEDTIME [facility] Last Admin: 08/08/25 22:04 Dose: 6 mg Metoprolol Succinate (Metoprolol Succinate Er 100 Mg Tab.Er.24h) 100 mg PO DAILY [facility]; Protocol Last Admin: 08/09/25 07:55 Dose: 100 mg Mirtazapine (Mirtazapine 7.5 Mg Tablet) 3.75 mg PO BEDTIME [facility] Last Admin: 08/08/25 22:04 Dose: 3.75 mg Polyethylene Glycol (Polyethylene Glycol 3350 17 Gm Powd.Pack) 17 gm PO DAILY [facility] Last Admin: 08/09/25 08:09 Dose: Not Given Rivastigmine Tartrate (Rivastigmine Tartrate 1.5 Mg Capsule) 3 mg PO BID@0900,1800 [facility] Last Admin: 08/09/25 07:55 Dose: 3 mg Sodium Chloride (0.9 % Sodium Chloride Flush 3 Ml Syringe) 3 ml IVFLUSH QSHIFT [facility] Last Admin: 08/09/25 08:09 Dose: 3 ml Sodium Chloride (Sodium Chloride 0.65 % Nasal 44 Ml Sprbtl) 1 spray NOSTRIL-B Q1H PRN PRN Reason: Congestion Tamsulosin HCl (Tamsulosin Hcl 0.4 Mg Capsule) 0.8 mg PO DAILY@1800 [facility] Last Admin: 08/08/25 17:29 Dose: 0.8 mg Trazodone HCl (Trazodone Hcl 100 Mg Tablet) 200 mg PO BEDTIME [facility] Last Admin: 08/08/25 22:03 Dose: 200 mg Allergies Allergies Allergy/AdvReac Type Severity Reaction Status Date / Time No Known Allergies Allergy Verified 07/31/25 14:06 Assessment & Plan Assessment & Plan (1) Major neurocognitive disorder: Status: Acute Code(s): F03.90 - Unspecified dementia, unspecified severity, without behavioral disturbance, psychotic disturbance, mood disturbance, and anxiety Plan Mr. Biggs is a 69 year-old male with hx of anxiety, depression, major neurocognitive disorder who is currently admitted due to acute PE. Per , pt had drastic change in mentation and ability to function after he had knee replacement. Symptoms appear to be as follows: ambivalance of will/affect (ambitendency), restlessness, poverty of though ( and latency of speech), verbigeration, withdrawn, some degree of negativism (quickly opposed to intervention without much reason or rationale for it). 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 It is not uncommon (and well documented in medical literature) that after surgery 1) underlying cognitive impairments worsen significantly (mostly due to exposure to anesthesia) and 2) that other neuropsychiatric symptoms can arise. It is unclear what may have prompted an improvement in symptoms temporarily during this hospital stay. Only new medication added was sildenafil for pulmonary hypertension (one may speculate as to the effects of this medication on NMDA receptors through indirect regulation of nitric oxide pathways- NMDA being involved in s/s of catatonia). He had been on clonazepam 0.25mg TID, seroquel 12.5mg po QID- with little to not much benefit according to . I do suspect myoclonic/jerk-like movement of right lower extremity may be related to namenda (also an NMDA receptor antagonist which pt has been on according to for over a year). Although namenda can help in some cases of catatonia, it does not seemed to have improve his mood. Of course, this medication was added for underlying cognitive impairment and not mood. He can continue on rivastigmine. Still suspect underlying cognitive impairments (dementia) regardless of s/s of catatonia even if those improve. Also note that certain types of dementia, such as frontotemporal are at increase risk of catatonia. PLAN 08/08/25- pt had trial of ativan TID, which reports no significant improvement. Pt noted to have more significant impairments in ability to retain new information and confusion about information given which then in turn increases his anxiety. given that no significant difference, will switch back to clonazepam. NOted action tremors, unsteady gait/balance when standing up, which reports has been present for some time. Decision to switch back to clonazepam, restart remeron low dose he was on. continue trazodone. namenda- can continue to hold. 08/09/25- tolerating switch back to clonazepam, still somewhat anxious. discussed with increasing clonazepam 0.5mg po TID. very poor memory and ability to understand information. Pt does NOT show capacity to make medical decisions. HCP, if one available should be invoked for future reference. Total time managing care of this patient today ____ minutes.
[2025-08-09] MEDS: clonazePAM ODT 0.5 MG TAB.RAPDIS PO (13:07)
== END 2025-08-09 14:36 | disposition skilled nursing facility (03) | DRG 175 ==
LOC: HO.ED 16:06 → HO.EDOVER 17:45 → HO.IMC 08-01 17:04
PROVIDERS: Emergency Medicine; Hospitalist; Student in an Organized Health Care Education/Training Program; Admitting Provider Physician Assistant Medical; Emergency Provider Emergency Medicine Emergency Medical Services; PCP Nurse Practitioner Family; Visit Provider Hospitalist
DX: I26.09 Other pulmonary embolism with acute cor pulmonale (principal); J96.01 Acute respiratory failure with hypoxia; N40.0 Benign prostatic hyperplasia without lower urinary tract symptoms; G47.33 Obstructive sleep apnea (adult) (pediatric); I95.9 Hypotension, unspecified; I10 Essential (primary) hypertension; E78.5 Hyperlipidemia, unspecified; K59.00 Constipation, unspecified; F41.9 Anxiety disorder, unspecified; F32.A Depression, unspecified; F06.1 Catatonic disorder due to known physiological condition; I27.20 Pulmonary hypertension, unspecified; G20.C Parkinsonism, unspecified; F02.80 Dementia in other diseases classified elsewhere, unspecified severity, without behavioral disturbance, psychotic disturbance, mood disturbance, and anxiety; Z91.199 Patient's noncompliance with other medical treatment and regimen due to unspecified reason; Z20.822 Contact with and (suspected) exposure to COVID-19; Z79.899 Other long term (current) drug therapy
CPT/HCPCS: 36415; 36600; 70450; 71045; 71275; 80048; 80053; 80076; 81001; 82140; 82565; 82803; 82947; 83605; 83880; 84484; 84520; 85025; 85027; 85379; 87040; 87633; 87637; 93005; 93306; 93970; 97162; 97167; 97530; 99285; J1650; J1938; J7120; Q9957; Q9967

== ENCOUNTER → 2025-07-31 13:47 | Outpatient (BNV) | payer OTHER, SELFPAY | PROVIDERS: Admitting Provider Physician Assistant Medical; Emergency Provider Emergency Medicine Emergency Medical Services; Visit Provider Internal Medicine Cardiovascular Disease | DX: R00.0 Tachycardia, unspecified (principal) | CPT/HCPCS: 93010 ==

== ENCOUNTER → 2025-07-31 13:47 | Outpatient (BNV) | payer OTHER, MEDICARE, BC, SELFPAY | PROVIDERS: Emergency Provider Emergency Medicine; Visit Provider Radiology Diagnostic Radiology | DX: I26.99 Other pulmonary embolism without acute cor pulmonale (principal); R41.82 Altered mental status, unspecified; J98.6 Disorders of diaphragm | CPT/HCPCS: 70450; 71045; 71275 ==

== ENCOUNTER 2025-07-31 17:31 | Outpatient (BNV) | payer OTHER, SELFPAY | END 2025-08-01 07:00 | PROVIDERS: Admitting Provider Physician Assistant Medical; Emergency Provider Emergency Medicine Emergency Medical Services; Visit Provider Internal Medicine Cardiovascular Disease | DX: I27.20 Pulmonary hypertension, unspecified (principal) | CPT/HCPCS: 93306 ==

== ENCOUNTER 2025-07-31 17:31 | Outpatient (BNV) | payer OTHER, SELFPAY | END 2025-08-02 09:54 | PROVIDERS: Admitting Provider Physician Assistant Medical; Emergency Provider Emergency Medicine Emergency Medical Services; Visit Provider Radiology Diagnostic Radiology | DX: I26.93 Single subsegmental thrombotic pulmonary embolism without acute cor pulmonale (principal) | CPT/HCPCS: 93970 ==

== ENCOUNTER → 2025-07-31 17:31 | Outpatient (BNV) | payer OTHER, SELFPAY | PROVIDERS: Admitting Provider Physician Assistant Medical; Emergency Provider Emergency Medicine Emergency Medical Services; PCP Nurse Practitioner Family; Visit Provider Social Worker | DX: F03.90 Unspecified dementia, unspecified severity, without behavioral disturbance, psychotic disturbance, mood disturbance, and anxiety (principal) | CPT/HCPCS: 99232 ==

== ENCOUNTER → 2025-07-31 17:31 | Outpatient (BNV) | payer MEDICARE, BC, OTHER, SELFPAY | PROVIDERS: Admitting Provider Physician Assistant Medical; Emergency Provider Emergency Medicine Emergency Medical Services; Visit Provider Physician Assistant Medical | DX: I26.99 Other pulmonary embolism without acute cor pulmonale (principal) | CPT/HCPCS: 99223 ==

== ENCOUNTER → 2025-07-31 17:31 | Outpatient (BNV) | payer OTHER, SELFPAY | PROVIDERS: Admitting Provider Physician Assistant Medical; Emergency Provider Emergency Medicine Emergency Medical Services; PCP Nurse Practitioner Family; Visit Provider Internal Medicine Cardiovascular Disease | DX: J96.01 Acute respiratory failure with hypoxia (principal); I26.99 Other pulmonary embolism without acute cor pulmonale | CPT/HCPCS: 99223 ==

== ENCOUNTER → 2025-07-31 17:31 | Outpatient (BNV) | payer OTHER, SELFPAY | PROVIDERS: Admitting Provider Physician Assistant Medical; Emergency Provider Emergency Medicine Emergency Medical Services; Visit Provider Internal Medicine Pulmonary Disease | DX: J96.01 Acute respiratory failure with hypoxia (principal); I26.99 Other pulmonary embolism without acute cor pulmonale | CPT/HCPCS: 99222 ==

== ENCOUNTER 2025-08-10 05:50 | Outpatient (REF) | payer SELFPAY ==
--- OUTSIDE RECORDS SUMMARY | 2024-08-13 09:47 | XMS_ITS | Encounter Summary ---
Author Name [facility] [place] [facility] [place] [facility] [place] Address [address] [place] [address] Care Team Providers Care Director Personal Name Role Phone IVAN VELAZQUEZ Primary Care Provider Unav ailable GILDARDO, LATONYA Unavailable Unavailable CALEB ORTIZ, ALYCIA Unavailable Unavailable MENDEZ RAMAN Unavailable Unavailable CHAPTOMY, LETA Unavailable Unavailable SADIE, ADAN Unavailable Unavailable EWA HASKINS Unavailable Unavailable SHALA, DENISE Unavailable Unavailable ITA, SONIDO Unavailable Unavailable LIV, HIEU Unavailable Unavailable Insurance Providers: All historical and current Section Date Range: From patient's date of to the date document was created. This section includes the names of all active insurance providers for the patient. Insurance Provider Type of Coverage Plan Name Start of Policy Coverage End of Policy Coverage Group Number Member ID Insurance Provider's Telephone Number Policy Lassiter's Name Patient's Relationship to Policy Lassiter DEZ BCBS [place] FEDERAL PREFERRED PROVIDER ORGANIZAT ION (PPO) BASIC SELF Aug 21, 2013 111 [id number] [phone] GISELL CELIO PATIENT ANTHE[place] F[place] PREFERRED PROVIDER ORGANIZAT ION (PPO) FEP BASIC IND Aug 21, 2013 111 [id number] [phone] CELIO GARDNER PATIENT ANTHEM FEP PREFERRED PROVIDER ORGANIZAT ION (PPO) FEP BASIC SELF Aug 21, 2013 111 [id number] [phone] CELIO JAMESON PATIENT BCBS FEP PREFERRED PROVIDER ORGANIZAT ION (PPO) [id number] Aug 21, 2013 111 [id number] CELIO GARDNER PATIENT BCBS YOLANDA ATTN FEP CLAIMS PREFERRED PROVIDER ORGANIZAT ION (PPO) FEP BASIC IND Aug 21, 2013 111 [id number] [phone] CELIO GARDNER PATIENT [place] FEP PREFERRED PROVIDER ORGANIZAT ION (PPO) FEP BASIC IND Aug 21, 2013 111 [id number] [phone] CELIO GARDNER PATIENT [place] F[place] PREFERRED PROVIDER ORGANIZAT ION (PPO) BASIC INDIV IDUAL Aug 21, 2013 111 [id number] CELIO JAMESON PATIENT [place] FEP PREFERRED PROVIDER ORGANIZAT ION (PPO) BASIC SELF Aug 21, 2013 111 [id number] CELIO GARDNER PATIENT [place] F[place] PREFERRED PROVIDER ORGANIZAT ION (PPO) BASIC SELF Aug 21, 2013 111 [id number] CELIO JAMESON PATIENT [place] F[place] DENTAL DENTAL INSURANCE BASIC Aug 21, 2013 DENTAL [id number] CELIO GARDNER PATIENT [place] FEP PREFERRED PROVIDER ORGANIZAT ION (PPO) BASIC SELF Aug 21, 2013 111 [id number] CELIO GARDNER PATIENT [place] FED[place]AL PREFERRED PROVIDER ORGANIZAT ION (PPO) BASIC SELF Aug 21, 2013 111 [id number] 27 CELIO GARDNER PATIENT [place] PREFERRED PROVIDER ORGANIZAT ION (PPO) STAND MAGDALENA FAMIL Y Aug 18, 2006 105 [id number] [phone] CELIO GARDNER PATIENT [employer] BCBS FEP MEDICARE SECONDARY (NO B EXC) FEHB BASIC MEDSE C Aug 21, 2013 111 [id number] [phone] CELIO GARDNER PATIENT [employer] BCBS FEP PREFERRED PROVIDER ORGANIZAT ION (PPO) FEP [place] Sep 23, 2006 [id number] CELIO GARDNER PATIENT [employer] FEP ([id number]) PRESCRIPT ION FEP RX Aug 21, 2013 [id number] [phone] CELIO GARDNER PATIENT [employer] FEP [id number] PRESCRIPT ION FEPRX Aug 21, 2013 [id number] [phone] CELIO GARDNER [place] FEP BCBS PRESCRIPT ION CAREM ARK FEPRX Aug 21, 2013 [id number] CELIO JAMESON CAREELIJAH FEP RX [id number] PRESCRIPT ION [id number] Aug 21, 2013 [id number] CELIO GARDNER [employer]-F EP BCBS PRESCRIPT ION FEP Aug 21, 2013 [id number] CELIO GARDNER PATIENT MEDICARE ([facility]) MEDICARE () PART A Nov 16, 2021 PART A [id number] CELIO GARDNER PATIENT MEDICARE (WN) MEDICARE (M) PART B Nov 16, 2021 PART B [id number] CELIO GARDNER PATIENT MEDICARE (WN) MEDICARE (M) PART A Nov 16, 2021 PART A [id number] CEILO GARDNER PATIENT MEDICARE ([facility]) MEDICARE () PART B Nov 16, 2021 PART B [id number] CELIO GARDNER PATIENT MEDICARE ([facility]) MEDICARE () PART A Nov 16, 2021 PART A [id number] [phone] CELIO GARDNER PATIENT MEDICARE (WNR) MEDICARE () PART B Nov 16, 2021 PART B [id number] CELIO GARDNER PATIENT MEDICARE (WN) MEDICARE () PART A Nov 16, 2021 PART A [id number] CELIO GARDNER PATIENT MEDICARE (WN) MEDICARE () PART B Nov 16, 2021 PART B [id number] CELIO GARDNER PATIENT MEDICARE (WNR) MEDICARE () PART A Nov 16, 2021 PART A [id number] CELIO GARDNER PATIENT MEDICARE (WNR) MEDICARE (M) PART B Nov 16, 2021 PART B [id number] CELIO GARDNER PATIENT MEDICARE (WNR) MEDICARE (M) PART A Nov 16, 2021 PART A [id number] [id number] CELIO GARDNER PATIENT MEDICARE (WNR) MEDICARE (M) PART B Nov 16, 2021 PART B [id number] CELIO GARDNER PATIENT MEDICARE PART D (WNR) MEDICARE (M) PART D Aug 18, 2023 PART D [id number] [phone] CELIO GARDNER PATIENT Selected Encounter This section includes the information on record at [place] for the Encounter. Date/Time Encounter Type Encounter Description Reason Provider Source Aug 13, 2024 02:47 PM Outpatient Encounter CAREGIVER SUPPORT PROGRAM MATTY BRICEÑO Encounter Template Text not used by [place] Plan of Treatment: Future Appointments (+ 6 months) and Future Tests (+/- 45 days) The Plan of Treatment section includes future care activities for the patient from all [place] [facility]. This section includes future appointments and future orders which are active, pending or scheduled. Future Appointments This section includes appointments that were scheduled to occur 6 months from the date of the Encounter, up to a maximum of 20 appointments. The data comes from all [place] treatment facilities. Appointment Date/Time Appointment Type Appointme nt Facility Name Aug 24, 2024 03:00 PM AMBULATORY - PSYCHIATRY [facility] Aug 31, 2024 03:30 PM AMBULATORY - PS[facility]CHIATRY [facility] Sep 21, 2024 02:00 PM AMBULATORY - PSYCHIATRY [facility] Oct 05, 2024 03:30 PM AMBULATORY - PSYCHIATRY [facility] Oct 19, 2024 02:00 PM AMBULATORY - PSYCHIATRY [facility] Nov 02, 2024 03:00 PM AMBULATORY - PS[facility]CHIATRY [facility] Nov 23, 2024 02:00 PM AMBULATORY - PS[facility]CHIATRY [facility] Nov 30, 2024 03:00 PM AMBULATORY - PSYCHIATRY [facility] Dec 14, 2024 01:30 PM [facility] Dec 14, 2024 02:00 PM AMBULATORY [place]ICINE [place] [facility] [place] [facility] December 28, 2024 02:00 PM AMBULATORY - PSYCHIATRY [facility] January 11, 2025 03:30 PM AMBULATORY - PSYCHIATRY [facility] Feb 01, 2025 02:00 PM AMBULATORY - PSYCHIATRY [facility] Social History: Smoking Status (Most current) and Tobacco Use (All prior to encounter date) This section includes the most current, and the historical, smoking and tobacco- related health factors from the [place] facility where the Encounter took place. Current Smoking Status This section includes the most current smoking, or tobacco-related health factor, from the [place] facility where the Encounter took place. Date/Time Current Smoking Status Comment [facility] Sep 17, 2021 11:00 AM VA-TOBACCO QUIT 15 YRS OR MORE [place] [facility] Tobacco Use History This section includes a history of the smoking, or tobacco-related health factors, that were collected on or before the date of the Encounter. The data comes from the [place] facility where the Encounter took place. Date/Time Smoking Status/Tobac co Use Comment Facility Sep 17, 2021 11:00 AM VA-TOBACCO QUIT 15 YRS OR MORE [place] [facility] [place] [facility] Mar 01, 2020 01:30 PM VA-TOBACCO FORMER USER [place] [facility] [place] [facility] Mar 01, 2020 01:30 PM VA-TOBACCO QUIT 15 YRS OR MORE [place] [facility] [place] [facility] Jan 20, 2019 09:37 AM VA-TOBACCO NEVER USED [place] [facility] [place] [facility] Dec 11, 2017 05:17 PM QUIT TOBACCO USE > 7 YEARS AGO [place] [facility] [place] [facility] Jan 20, 2017 03:12 PM QUIT TOBACCO USE > 7 YEARS AGO [place] [facility] [place] [facility] January 09, 2016 08:48 AM QUIT TOBACCO USE > 7 YEARS AGO . [place] [facility] [place] [facility] Jun 09, 2006 05:45 PM LIFETIME NON-TOBACCO USER [place] [facility] [place] [facility] Aug 22, 2003 03:27 PM HISTORY OF SMOKING [place] [facility] [place] [facility] Aug 22, 2003 03:27 PM QUIT TOBACCO USE IN PAST YEAR [place] [facility] [place] [facility] Jun 24, 2003 12:01 PM CURRENT SMOKER about 1 week/so [facility] Advance Directives: All historical and current Section Date Range: From patient's date of to the date document was created. This section includes ALL of a patient's completed or amended [place] Advance and Rescinded Directives. The entries below indicate that a directive exists for the patient, but an actual copy is not included with this document. The data comes from all [place] facilities. Date Advance Directives Provider Source Apr 08, 2024 ADVANCE DIRECTIVE LATONYA EWING [facility] Sep 19, 2021 GOALS & PREFERENCES TO INFORM LIFE-SUSTAINING TREATMENT PLAN [facility] Sep 19, 2020 ADVANCE DIRECTIVE ALANA MONIQUE [facility]
--- OUTSIDE RECORDS SUMMARY | 2024-08-24 10:00 | XMS_ITS | Encounter Summary ---
Author Name [facility] [facility] [place] [facility] [place] Address [address] [place] [address] Care Team Providers Care Audio Visual Tech Name Role Phone IVAN VELAZQUEZ Primary Care Provider Unav ailable GILDARDO, LATONYA Unavailable Unavailable ALYCIA RHODES Unavailable Unavailable MENDEZ RAMAN Unavailable Unavailable LETA PITTMAN Unavailable Unavailable SADIE, DAAN Unavailable Unavailable EWA HASKINS Unavailable Unavailable DENISE LAST Unavailable Unavailable ITA, SONIDO Unavailable Unavailable LIV, [...] (PPO) BASIC SELF Aug 21, 2013 111 [id number] [phone] GISELLCELIO PATIENT ANTHEM [place] FEP PREFERRED PROVIDER ORGANIZAT ION (PPO) FEP BASIC IND Aug 21, 2013 111 [id number] [phone] CELIO GARDNER PATIENT ANTHEM FEP PREFERRED PROVIDER ORGANIZAT ION (PPO) FEP BASIC SELF Aug 21, 2013 111 [id number] [phone] GISELL CELIO PATIENT BCBS FEP PREFERRED PROVIDER ORGANIZAT ION (PPO) [id number] Aug 21, 2013 111 [id number] CELIO GARDNER PATIENT BCBS YOLANDA ATTN FEP CLAIMS PREFERRED PROVIDER ORGANIZAT ION (PPO) FEP BASIC IND Aug 21, 2013 111 [id number] [phone] CELIO GARDNER PATIENT [place] FEP PREFERRED PROVIDER ORGANIZAT ION (PPO) FEP BASIC IND Aug 21, 2013 111 [id number] [phone] CELIO GARDNER PATIENT [place] FEP PREFERRED PROVIDER ORGANIZAT ION (PPO) BASIC INDIV IDUAL Aug 21, 2013 111 [id number] [phone] CELIO JAMESON PATIENT [place] FEP PREFERRED PROVIDER ORGANIZAT ION (PPO) BASIC SELF Aug 21, 2013 111 [id number] [phone] CELIO GARDNER PATIENT [place] FEP PREFERRED PROVIDER ORGANIZAT ION (PPO) BASIC SELF Aug 21, 2013 111 [id number] [phone] CELIO JAMESON PATIENT [place] FEP DENTAL DENTAL INSURANCE BASIC Aug 21, 2013 DENTAL [id number] 27 CELIO GARDNER PATIENT [place] FEP PREFERRED PROVIDER ORGANIZAT ION (PPO) BASIC SELF Aug 21, 2013 [id number] CELIO GARDNER PATIENT [place] FEDERAL PREFERRED PROVIDER ORGANIZAT ION (PPO) BASIC SELF Aug 21, 2013 [id number] 27 CELIO GARDNER PATIENT [place] FED[place] PREFERRED PROVIDER ORGANIZAT ION (PPO) STAND MAGDALENA FAMIL Y Aug 18, 2006 105 [id number] [phone] CELIO GARDNER PATIENT [employer] BCBS FEP MEDICARE SECONDARY (NO B EXC) FEHB BASIC MEDSE C Aug 21, 2013 111 [id number] [phone] CELIO GARDNER PATIENT [employer] BCBS FEP PREFERRED PROVIDER ORGANIZAT ION (PPO) FEP [place] Sep 23, 2006 [id number] CELIO GARDNER PATIENT [employer] FEP ([id number]) PRESCRIPT ION FEP RX Aug 21, 2013 [id number] [phone] CELIO GARDNER [employer] FEP [id number] PRESCRIPT ION FEPRX Aug 21, 2013 [id number] [phone] CELIO GARDNER [employer] FEP BCBS PRESCRIPT ION CAREM ARK FEPRX Aug 21, 2013 [id number] [phone] CELIO JAMESON FEP RX [id number] PRESCRIPT ION [id number] Aug 21, 2013 [id number] [phone] CELIO GARDNER [employer]-F EP BCBS PRESCRIPT ION FEP Aug 21, 2013 [id number] CELIO GARDNER PATIENT MEDICARE ([facility]) MEDICARE () PART A Nov 16, 2021 PART A [id number] [phone] CELIO GARDNER PATIENT MEDICARE ([facility]) MEDICARE (M) PART B Nov 16, 2021 PART B [id number] [phone] CELIO GARDNER PATIENT MEDICARE ([facility]) MEDICARE (M) PART A Nov 16, 2021 PART A [id number] [phone] CELIO GARDNER PATIENT MEDICARE ([facility]) MEDICARE (M) PART B Nov 16, 2021 PART B [id number] [phone] CELIO GARDNER PATIENT MEDICARE ([facility]) MEDICARE () PART A Nov 16, 2021 PART A [id number] CELIO GARDNER PATIENT MEDICARE ([facility]) MEDICARE (M) PART B Nov 16, 2021 PART B [id number] CELIO GARDNER PATIENT MEDICARE ([facility]) MEDICARE () PART A Nov 16, 2021 PART A [id number] [phone] CELIO GARDNER PATIENT MEDICARE ([facility]) MEDICARE () PART B Nov 16, 2021 PART B [id number] [phone] [id number] CELIO GARDNER PATIENT MEDICARE ([facility]) MEDICARE (M) PART A Nov 16, 2021 PART A [id number] CELIO GARDNER PATIENT MEDICARE (WNR) MEDICARE (M) PART B Nov 16, 2021 PART B [id number] CELIO GARDNER PATIENT MEDICARE (WNR) MEDICARE (M) PART A Nov 16, 2021 PART A [id number] [id number] CELIO GARDNER PATIENT MEDICARE (WNR) MEDICARE (M) PART B Nov 16, 2021 PART B [id number] [id number] CELIO GARDNER PATIENT MEDICARE PART D (WNR) MEDICARE (M) PART D Aug 18, 2023 PART D [id number] [phone] CELIO GARDNER PATIENT Selected Encounter This section includes the information on record at [place] for the Encounter. Date/Time Encounter Type Encounter Description Reason Provider Source Aug 24, 2024 03:00 PM PSYTX W PT 30 [facility] - IND ICD-10-CM F33.3 Major depressv disorder, recurrent, severe w psych symptoms TRESA SILVERIO Alcides Encounter Template Text not used by [place] Assessments - Encounter Diagnoses This section includes the primary and secondary diagnoses documented for the Encounter. Date/Time Primary/Secondary Diagnosis Diagnosis Name Provider Source Sep 13, 2024 02:37 PM PRIMARY Major depressv disorder, recurrent, severe w psych symptoms TRESA SILVERIO Sep 13, 2024 02:37 PM SECONDARY Anxiety disorder, unspecified TRESA SILVERIO Plan of Treatment: Future Appointments (+ 6 months) and Future Tests (+/- 45 days) The Plan of Treatment section includes future care activities for the patient from all [place] treatmentfacilities. This section includes future appointments and future orders which are active, pending or scheduled. Future Appointments This section includes appointments that were scheduled to occur 6 months from the date of the Encounter, up to a maximum of 20 appointments. The data comes from all [place] treatment facilities. Appointment Date/Time Appointment Type Appointme nt Facility Name Aug 31, 2024 03:30 PM AMBULATORY - PSYCHIATRY [facility] Sep 21, 2024 02:00 PM AMBULATORY - PSYCHIATRY [facility] Oct 05, 2024 03:30 PM AMBULATORY - PSYCHIATRY [facility] Oct 19, 2024 02:00 PM AMBULATORY - PSYCHIATRY [facility] Nov 02, 2024 03:00 PM AMBULATORY - PSYCHIATRY [facility] Nov 23, 2024 02:00 PM AMBULATORY - PSYCHIATRY [facility] Nov 30, 2024 03:00 PM AMBULATORY - PSYCHIATRY [facility] Dec 14, 2024 01:30 PM AMBULATORY - REHAB MEDICIN [facility] Dec 14, 2024 02:00 PM [facility] December 28, 2024 02:00 PM AMBULATORY - PSYCHIATRY [facility] January 11, 2025 03:30 PM AMBULATORY - PSYCHIATRY [facility] Feb 01, 2025 02:00 PM AMBULATORY - PSYCHIATRY [facility] Feb 15, 2025 03:00 PM AMBULATORY - PSYCHIATRY [facility] Advance Directives: All historical and current Section Date Range: From patient's date of to the date document was created. This section includes ALL of a patient's completed or amended [place] Advance and Rescinded Directives. The entries below indicate that a directive exists for the patient, but an actual copy is not included with this document. The data comes from all [place] facilities. Date Advance Directives Provider Source Apr 08, 2024 ADVANCE DIRECTIVE LATONYA EWING [place] [facility] Sep 19, 2021 GOALS & PREFERENCES TO INFORM LIFE-SUSTAINING TREATMENT PLAN [facility] Sep 19, 2020 ADVANCE DIRECTIVE ALANA MONIQUE [facility] Encounter Notes: All associated encounter notes This section contains the clinical notes associated to the Encounter. Date/Time Encounter Note(s) Provider Source Aug 24, 2024 03:00 PM SOCIAL WORK NOTE: LOCAL TITLE: SOCIAL WORK NOTE STANDARD TITLE: SOCIAL WORK NOTE DATE OF NOTE: AUG 24, 2024@15:00 ENTRY DATE: AUG 24, 2024@15:33:08 AUTHOR: TRESA SILVERIO COSIGNER: URGENCY: STATUS: COMPLETED INFORMED CONSENT REVIEWED: At beginning of session reviewed rights and limits of confidentiality, mandatory reporting situations, duty to warn and protect, Agosto Warning, (if treatment team finds patient to be an acute danger to himself or others, that this information could be relayed to a court of law and presented to a manager asset), and DOD access for active duty service members. Provided Suicide Prevention Hotline number, and other contact numbers as necessary. VISIT DURATION 30 minutes identified with 2 identifiers: Full Name, Facial Recognition DIAGNOSES: MDD recurrent, severe with psychotic symptoms (F33.3); Anxiety do unspecified (F41.9) [employer]ETERANS STATEMENT OF GOALS/CONCERNS: I don't want to be here. Can I go? SESSION FOCUS: Met with for individual counseling. was accompanied by his Dennise. more anxious today than previously. He barely sat and kept asking when they were going. This documentation writer attempted to engage him in conversation with difficulty this time. He was focused on leaving. He did speak about his [employer] experience in [place]. He also spoke about his condo in [facility] which they have since sole. has a new pediatric care coordinator that helps out during the day. INTERVENTIONS: Psychotherapeutic Interventions: ME; Reflective listening and support ASSESSMENT: BRIEF ASSESSMENT OF MENTAL STATUS: 1. Appearance (grooming, attire, apparent age) within normal limits: Yes 2. Thought content was organized and goal directed: Yes 3. Speech was coherent and unimpaired: Yes 4. Affect was appropriate and unremarkable: Yes 5. Demeanor was calm, with no signs of agitation or restlessness: Yes 6. Sleep was largely unimpaired and restful: Yes 7. No evidence of psychosis (hallucinations or delusions): Yes 8. Mood was normal: anxious Other Observations: RISK ASSESSMENT: Denies current suicidal ideation PLAN FOR FOLLOW-UP: Next session planned for: 09/21/24 at 3pm /es/ MIL TAM Channel Program Manager Mental Health Signed: 08/24/2024 15:41 TRESA SILVERIO [place]
--- OUTSIDE RECORDS SUMMARY | 2024-08-31 10:30 | XMS_ITS | Encounter Summary ---
Author Name [facility] [facility] [place] [facility] [facility] [place] Address [address] [place] [address] Care Team Providers Care Dietitian Therapeutic Name Role Phone IVAN CHERRY Primary Care Provider Unav ailable GILDARDO, LATONYA Unavailable Unavailable ALYCIA RHODES Unavailable Unavailable MENDEZ RAMAN Unavailable Unavailable LETA PITTMAN Unavailable Unavailable SADIE, ADAN Unavailable Unavailable EWA HASKINS Unavailable Unavailable DENISE [...] (PPO) BASIC SELF Aug 21, 2013 111 [id number] [phone] EricMARIA ELENA CELIO PATIENT [place] PREFERRED PROVIDER ORGANIZAT ION (PPO) FEP BASIC IND Aug 21, 2013 111 [id number] [phone] CELIO GARDNER PATIENT ANTHEM FEP PREFERRED PROVIDER ORGANIZAT ION (PPO) FEP BASIC SELF Aug 21, 2013 111 [id number] [phone] EricHONEYELVIACELIO BARAHONA PATIENT BCBS FEP PREFERRED PROVIDER ORGANIZAT ION (PPO) [id number] Aug 21, 2013 111 [id number] CELIO GARDNER PATIENT BCBS YOLANDA ATTN FEP CLAIMS PREFERRED PROVIDER ORGANIZAT ION (PPO) FEP BASIC IND Aug 21, 2013 111 [id number] [phone] CELIO GARDNER PATIENT [place] FEP PREFERRED PROVIDER ORGANIZAT ION (PPO) FEP BASIC IND Aug 21, 2013 111 [id number] [phone] CELIO GARDNER PATIENT [place] F[place] PREFERRED PROVIDER ORGANIZAT ION (PPO) BASIC INDIV IDUAL Aug 21, 2013 111 [id number] [phone] CELIO JAMESON PATIENT [place] FEP PREFERRED PROVIDER ORGANIZAT ION (PPO) BASIC SELF Aug 21, 2013 111 [id number] CELIO GARDNER PATIENT [place] F[place] PREFERRED PROVIDER ORGANIZAT ION (PPO) BASIC SELF Aug 21, 2013 111 [id number] CELIO JAMESON PATIENT [place] FEP DENTAL DENTAL INSURANCE BASIC Aug 21, 2013 DENTAL [id number] [phone] CELIO GARDNER PATIENT [place] FEP PREFERRED PROVIDER ORGANIZAT ION (PPO) BASIC SELF Aug 21, 2013 111 [id number] [phone] CELIO GARDNER PATIENT [place] FEDERAL PREFERRED PROVIDER ORGANIZAT ION (PPO) BASIC SELF Aug 21, 2013 111 [id number] [phone] CELIO GARDNER PATIENT [place] FED[place] PREFERRED PROVIDER ORGANIZAT ION (PPO) STAND [facility] FAM[facility] Y Aug 18, 2006 105 [id number] [phone] CELIO GARDNER PATIENT KEHINDEFIRST BCBS FEP MEDICARE SECONDARY (NO B EXC) FEHB BASIC MEDSE C Aug 21, 2013 111 [id number] [phone] CELIO GARDNER PATIENT [employer] BCBS FEP PREFERRED PROVIDER ORGANIZAT ION (PPO) FEP STAND [place] Sep 23, 2006 [id number] CELIO GARDNER PATIENT [place] FEP ([id number]) PRESCRIPT ION FEP RX Aug 21, 2013 [id number] [phone] CELIO GARDNER [place] FEP [id number] PRESCRIPT ION FEPRX Aug 21, 2013 [id number] [phone] CELIO GARDNER [place] FEP BCBS PRESCRIPT ION CAREM ARK FEPRX Aug 21, 2013 [id number] [phone] CELIO JAMESON FEP RX [id number] PRESCRIPT ION [id number] Aug 21, 2013 [id number] [phone] CELIO GARDNER [place]-F EP BCBS PRESCRIPT ION FEP Aug 21, 2013 [id number] CELIO GARDNER PATIENT MEDICARE ([facility]) MEDICARE () PART A Nov 16, 2021 PART A [id number] [phone] CELIO GARDNER PATIENT MEDICARE ([facility]) MEDICARE (M) PART B Nov 16, 2021 PART B [id number] [phone] CELIO GARDNER PATIENT MEDICARE ([facility]) MEDICARE (M) PART A Nov 16, 2021 PART A [id number] [phone] CELIO GARDNER PATIENT MEDICARE ([facility]) MEDICARE (M) PART B Nov 16, 2021 PART B [id number] [phone] CELIO GARDNER PATIENT MEDICARE ([facility]) MEDICARE (M) PART A Nov 16, 2021 PART A [id number] CELIO GARDNER PATIENT MEDICARE ([facility]) MEDICARE (M) PART B Nov 16, 2021 PART B [id number] [phone] CELIO GARDNER PATIENT MEDICARE ([facility]) MEDICARE (M) PART A Nov 16, 2021 PART A [id number] CELIO GARDNER PATIENT MEDICARE ([facility]) MEDICARE (M) PART B Nov 16, 2021 PART B [id number] CELIO GARDNER PATIENT MEDICARE ([facility]) MEDICARE (M) PART A Nov 16, 2021 PART A [id number] [phone] CELIO GARDNER PATIENT MEDICARE ([place]) MEDICARE (M) PART B Nov 16, 2021 PART B [id number] [phone] CELIO GARDNER PATIENT MEDICARE ([place]NR) MEDICARE (M) PART A Nov 16, 2021 PART A [id number] [phone] CELIO GARDNER PATIENT MEDICARE ([place]) MEDICARE (M) PART B Nov 16, 2021 PART B [id number] [phone] CELIO GARDNER PATIENT MEDICARE PART D ([place]NR) MEDICARE (M) PART D Aug 18, 2023 PART D [id number] [phone] CELIO GARDNER PATIENT Selected Encounter This section includes the information on record at [place] for the Encounter. Date/Time Encounter Type Encounter Description Reason Provider Source Aug 31, 2024 03:30 PM OFFICE O/P EST MOD 30 MIN [facility] - IND ICD-10-CM F33.3 Major depressv disorder, recurrent, severe w psych symptoms VIGNESH LLAMAS Alcides Encounter Template Text not used by [place] Assessments - Encounter Diagnoses This section includes the primary and secondary diagnoses documented for the Encounter. Date/Time Primary/Secondary Diagnosis Diagnosis Name Provider Source Sep 16, 2024 05:42 PM PRIMARY Major depressv disorder, recurrent, severe w psych symptoms KATIE LLAMAS Plan of Treatment: Future Appointments (+ 6 months) and Future Tests (+/- 45 days) The Plan of Treatment section includes future care activities for the patient from all [place] treatmentfacilities. This section includes future appointments and future orders which are active, pending or scheduled. Future Appointments This section includes appointments that were scheduled to occur 6 months from the date of the Encounter, up to a maximum of 20 appointments. The data comes from all [place] treatment facilities. Appointment Date/Time Appointment Type Appointme nt Facility Name Sep 21, 2024 02:00 PM AMBULATORY - PSYCHIATRY [facility] Oct 05, 2024 03:30 PM AMBULATORY - PSYCHIATRY [facility] Oct 19, 2024 02:00 PM AMBULATORY - PSYCHIATRY [facility] Nov 02, 2024 03:00 PM AMBULATORY - PSYCHIATRY [facility] Nov 23, 2024 02:00 PM AMBULATORY - PSYCHIATRY [facility] Nov 30, 2024 03:00 PM AMBULATORY - PSYCHIATRY [facility] Dec 14, 2024 01:30 PM [facility] Dec 14, 2024 02:00 PM [facility] [place] [facility] December 28, 2024 02:00 PM AMBULATORY - PSYCHIATRY [facility] January 11, 2025 03:30 PM AMBULATORY - PSYCHIATRY [facility] Feb 01, 2025 02:00 PM AMBULATORY - PSYCHIATRY [facility] Feb 15, 2025 03:00 PM AMBULATORY - PSYCHIATRY [facility] Advance Directives: All historical and current Section Date Range: From patient's date of to the date document was created. This section includes ALL of a patient's completed or amended [place] Advance and Rescinded Directives. The entries below indicate that a directive exists for the patient, but an actual copy is not included with this document. The data comes from all [place] facilities. Date Advance Directives Provider Source Apr 08, 2024 ADVANCE DIRECTIVE LATONYA EWING [facility] Sep 19, 2021 GOALS & PREFERENCES TO INFORM LIFE-SUSTAINING TREATMENT PLAN [facility] Sep 19, 2020 ADVANCE DIRECTIVE ALANA MONIQUE [facility] Encounter Notes: All associated encounter notes This section contains the clinical notes associated to the Encounter. Date/Time Encounter Note(s) Provider Source Aug 31, 2024 05:41 PM PSYCHIATRY NOTE: LOCAL TITLE: PSYCHIATRY NOTE STANDARD TITLE: PSYCHIATRY NOTE DATE OF NOTE: AUG 31, 2024@17:41 ENTRY DATE: AUG 31, 2024@17:41:26 AUTHOR: KATIE LLAMAS EXP COSIGNER: URGENCY: STATUS: COMPLETED 30 min for encounter, including chart review, interview, charting chart reviewed Patient seen with his , Dennise Ongoing depressed mood and anxiety. Anxiety partially better in the evenings Affect remains blunted. No PI or delusions presented. Denied AHs and VHs. Mildly disorganized, processing of info slow. Again paucity of content noted. Denies SI and violent ideation. Cognitive exam seems to be notable for more memory problems and processing difficulties. MOCA last appt . Speech again has relatively long response latency, slow responses, limited content. Sleep good. In general the patient is very reluctant to decrease medication/doses, as he feels he gets some partial benefit and he does not want to risk increased symptoms, but we discuss consider further seroquel decrese today. And it has been gradually reduced over time. Because the patient has probably modest benefit with decreased anxiety/distress with the current regimen, it is reasonable to continue them for the patient. But as also noted in previous appointments, we will try to gradually lower some of psychiatric medications when possible to try to minimize possible side effects Denies current psych med side effects; no daytime sedation; reports med compliance -- patient's manages medications as noted before, no h/o alcohol and drug abuse Patient's organizes his care. She is very supportive. Patient now resides in his own residence, with 24-hour supervision arranged by family reported wt 201.8 lb 08/2024 at home; VSS in chart Active problems - Computerized Problem List is the source for the followin. Frail elderly 2. Dry eyes 3. Anxiety 4. Hypertension 5. Seasonal allergies 6. Constipation 7. Malignant melanoma of lower limb 8. Microscopic hematuria 9. Lewy body dementia with behavioral disturbance 10. Neurocognitive disorder 11. Severe major depression with psychotic features 12. Sleep apnoea 13. Lower urinary tract symptoms due to benign prostatic hypertrophy 14. OA - Osteoarthritis of knee 15. Internal hemorrhoids 16. Macular scar 17. 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 Benign prostatic hyperplasia (SNOMED CT 521624815) 20. Impaired Fasting Glucose 21. Exercise induced bronchospasm (SNOMED CT 077305276) 22. Hyperlipidemia (SNOMED CT 95993663) Active Outpatient Medications (including Supplies): Active Outpatient Medications Status 1) ASPIRIN 81MG EC TAB TAKE ONE TABLET BY MOUTH ONCE DAILY TO ACTIVE PREVENT STROKE/HEART ATTACK Indication: FOR MYOCARDIAL REINFARCTION PREVENTION 2) CLONAZEPAM 0.5MG TAB TAKE ONE-HALF TABLET BY MOUTH FOUR ACTIVE (S) TIMES A DAY MAY TAKE AN ADDITIONAL ONE-HALF TABLET PER 24 HOURS NEEDED Indication: ANXIETY 3) DICLOFENAC NA 1% TOP GEL APPLY 4 GRAMS TOPICALLY FOUR TIMES ACTIVE DAILY NEEDED - USE DOSING CARD PROVIDED IN BOX Indication: FOR OSTEOARTHRITIS 4) DOCUSATE NA 100MG CAP TAKE THREE CAPSULES BY MOUTH AT ACTIVE BEDTIME NEEDED TO SOFTEN STOOL Indication: FOR CONSTIPATION 5) ESCITALOPRAM OXALATE 5MG TAB TAKE ONE TABLET BY MOUTH ONCE ACTIVE (S) DAILY FOR MOOD/DEPRESSION Indication: FOR MAJOR DEPRESSIVE DISORDER 6) MELATONIN 5MG CAP/TAB TAKE TWO CAPSULE/TABLET BY MOUTH AT ACTIVE (S) BEDTIME NEEDED Indication: FOR INSOMNIA 7) MEMANTINE HCL 10MG TAB TAKE ONE TABLET BY MOUTH TWICE DAILY ACTIVE (S) Indication: DEMENTIA 8) METOPROLOL SUCCINATE 100MG SA TAB TAKE ONE TABLET BY MOUTH ACTIVE (S) ONCE DAILY FOR BLOOD PRESSURE/HEART Indication: FOR HIGH BLOOD PRESSURE 9) MULTIVIT/OPHTH AREDS2/LUTE/ZEAX CAP/TAB TAKE 1 CAPSULE BY ACTIVE MOUTH TWICE DAILY IN THE MORNING AND EVENING, WITH FOOD Indication: FOR VITAMIN SUPPLEMENTATION 10) POLYETHYLENE GLYCOL 3350 ORAL PWDR TAKE 17 GRAMS(FILL CAP TO ACTIVE 17GM LINE) BY MOUTH ONCE DAILY NEEDED [MIX WITH 4 TO 8OZ. OF BEVERAGE] Indication: FOR CONSTIPATION 11) QUETIAPINE FUMARATE 25MG TAB TAKE ONE-HALF TABLET BY MOUTH ACTIVE (S) TWICE DAILY AND TAKE TWO AND ONE-HALF TABLETS AT BEDTIME Indication: FOR MOOD 12) RIVASTIGMINE TARTRATE 3MG CAP TAKE ONE CAPSULE BY MOUTH ACTIVE (S) TWICE DAILY Indication: FOR DEMENTIA 13) SIMVASTATIN 40MG TAB TAKE ONE TABLET BY MOUTH AT BEDTIME FOR ACTIVE (S) CHOLESTEROL Indication: FOR HIGH CHOLESTEROL 14) TAMSULOSIN HCL 0.4MG CAP TAKE TWO CAPSULES BY MOUTH AT ACTIVE (S) BEDTIME Indication: FOR ENLARGED PROSTATE 15) TRAZODONE HCL 100MG TAB TAKE TWO TABLETS BY MOUTH AT BEDTIME ACTIVE (S) NEEDED Indication: FOR INSOMNIA ASSOCIATED WITH DEPRESSION PAST PSYCH MED HX: effexor-helpful for over 20 yrs-usually at 225mg dose,also at 300 mg q day at times abilify -- 03/30- 06/24/19 -- not enough benefit seroquel --more helpful based on recent experience [facility] -- pt recalls not tolerate well remeron -- short time yrs ago -- drying -- tolerate better now ambien ativan lunesta risperidone -- not help -- felt worse gabapentin not helpful for anxiety olanzapine -- not enough benefit remeron -- not add enough benefit low dose doxepin was not helpful for insomnia [place] -- not tolerate due to confusion wellbutrin -- possible increased anxiety had prozac -- in distant past -- pt recalls did not do well w this klonopin --probably more effective than Ativan , based on recent experience Trintellix, not help and may be GI side effects Lexapro in retrospect possibly partial benefit daytime trazodone trial was not helpful until 03/2019 effexor and rare use of ativan was adequate for mood/anxiety for 20 yrs buspar -- on repeat trial, not tolerated depakote -- no clear benefit TMS 2019 -- not help ECT 04/2020 -- severe confusion IMP: Major depression, recurrent -- severe -- with ruminative quality (w h/o psychotic features) Major neurocognitive do -- [facility] - unspecified neurodegenerative process considered likely - but dx remains unclear - diagnostic considerations have included Alzheimer's dementia, neuropsych testing here suggested Lewy body dementia -- see neuropsych testing Unspecified anxiety disorder r/o PTSD -- related to pt experience under anaesthesia -- unlikely to be main aspect of pt's presentation, but may contribute to anxiety/insomnia component PLAN: Careful risk assessment performed. See C-SSRS 06/22, same today. The pt is probably low risk for suicide or violence -- the patient denied suicidal and violent ideation, but the [facility] information and number were reviewed w patient/ as a precaution. I advised patient to talk with family/aides if there are any concerns about safety. As noted previously, given the patient's cognitive decline, the important part of pt's safety is supervision by /family/assistants therapy with Candelaria Luna as noted before, neuropsych testing -- see results in CPRS CONTINUE NAMENDA 10 MG TWICE DAILY for dementia. CONTINUE RIVASTIGMINE 3 MG TWICE DAILY, for dementia, well-tolerated CONTINUE LOW-DOSE LEXAPRO FOR NOW 5 MG DAILY (higher dose was not helpful) for depression and anxiety; probably partial benefit from current dose; but we are considering a change to Cymbalta, discuss further next visit or sooner by phone Note that we considered nortriptyline trial, but Dr. Fisher recommends against this due to potential side effect profile We have repeatedly discussed considering reducing patient's medication, especially sedating medication over time to see if this helps patient's cognition. Patient has been very reluctant to do this because he is concerned about increased depression and anxiety, but he did agree to reduction in clonazepam and Seroquel in previous appointments. And tapereed off depakote previously. CONTINUE QUETIAPINE 12.5 MG AT 8:30 AM AND 2:30 PM AND 62.5 MG QHS -- Quetiapine may provide some reduction in anxiety/mild agitation. Quetiapine may also augment antidepressant. But we are discussing further reducing quetiapine to try to reduce potential side effect load. Patient may decrease between appts (mangaged by his ) CONTINUE CLONAZEPAM 0.25 MG QID, WITH ADDITIONAL 0.25 MG Q 24 HRS PRN ANXIETY. According to patient's , he rarely needs the additional dose. Some benefit from this for anxiety and probably reasonably well-tolerated. Note that the reason for dosing a long- acting benzodiazepine like Klonopin 4 times a day is that the patient probably has some psychological benefit to more frequent dosing. The patient's will call if the patient does not tolerate the increase in clonazepam (also the additional clonazepam is prn and does not have to be given, the patient's understands this and is very careful). In particular I reviewed the risk of increased sedation and falling, patient's will monitor for this. CONTINUE TRAZODONE 200 MG QHS PRN INSOMNIA -- helpful; can also take MELATONIN PRN; this can be decreased if patient too sedated the next morning See prior notes by me for extensive discussion of psych med side effect profile/risk of drug interactions, reviewed w pt and his - they will continue to monitor for sedation and gait stability and increased confusion, which are the side effects we focus on the most -- so far, again the patient tolerates meds fairly well, although we are trying dose reduction as noted in previous notes. Benefits outweigh risks. I asked the pt's to call clinic or to have pt come to open access if the patient does not like the effect of psychiatric medication or if has side effects with psychiatric medication. The side effect profile of the atypical antipsychotic medication previously discussed with the patient and his . The risk of EPS, weight gain, metabolic syndrome (including risk of diabetes and hyperlipidemia),sedation, dizziness, orthostatic hypotension, falling, and TD with the atypical antipsychotic agent was previously reviewed with the patient/. The black box warning for use of antipsychotic medication inpatients with dementia also previously reviewed. The patient agrees to the medication. And the patient's is the decision maker for the patient. The benefits of treatment outweigh risks for this patient. Side effect profile of benzodiazepines also previously extensively reviewed with patient and his . Please see my prior notes. Benefits outweigh risks The patient's primary care physician follows blood pressure, weights, lipids, glucose Patient has transferred primary care to [facility] -- Kathy Cherry as primary care in [place] See prior notes for discussions of previous neurologic evals of [place] [facility], suggesting Lewy Body Dementia. See Dr. Johnson's notes. But more recent evaluation by neurologist at [facility] may suggest other form of dementia. But then repeat neuropsych testing was more consistent with Lewy body dementia As noted before, I previously reviewed with Dr. Vivas about potential drug interaction between rivastigmine and metoprolol, and she feels it is reasonable to prescribe rivastigmine and to monitor his heart rate periodically. I previously advised the patient's re this Return to clinic about 1 month or sooner through open access if needed Note that due to the complexity of this case, I have repeatedly reviewed with Dr. Barriga for his opinion/input. He agrees with assessment and plan. I have greatly appreciate his input. neurologist, Osman Ma, [facility] [phone] As noted before, note that the patient had a brain JEZ SPECT study at [facility]--10/31/2023 and it showed absence of activity noted in the putamen bilaterally, additionally asymmetric decreased activity noted in the right caudate nucleus. The impression was decreased activity in bilateral basal ganglia. Differential diagnosis includes Parkinson's disease, multiple system atrophy, progressive supranuclear palsy, dementia with Lewy bodies, cortical basal degeneration. This was ordered by Dr. Ma, the patient's neurologist. The patient then saw Dr. Isaac Becerra on 12/18/23 and more recently, and she feels diagnosis remains unclear. And I also spoke with Dr. Isaac Mathis previously on 11/20 --she is not certain how to interpret brain JEZ SPECT study results, she feels the diagnosis in terms of type of dementia/cognitive decline remains unclear. We decided that I would continue to work with the patient to improve his depression and anxiety symptoms if possible. In addition, I will try to lower medication doses when possible to lower risk of potential sedation/side effects. As noted previously, pt had psychiatry consult 01/14 at [facility] and his sent the assessment to me, by Dr. Orlin Fisher. I have reviewed this. The diagnoses by Dr Fisher included neurocognitive disorder, depression unspecified. Recommendations appreciated. I was also able to review Dr. Fisher over the phone , see my 06/22 note for more discussion Medication Reconciliation: Outpatient: Has the patient been taking medications as documented in the EMLR? YES: The patient has been taking medications as documented in the EMLR. Essential Medication List for Review used to complete this medication reconciliation. INCLUDED IN THIS LIST: Alphabetical list of active outpatient prescriptions dispensed from this [place] (local) and dispensed from another [place] or [facility] facility (remote) as well as inpatient orders (local, pending and active), local clinic medications, locally documented non-VA medications, and local prescriptions that have or been discontinued in the past 90 days. - All changes in medications, including all non-VA/Herbal/OTC medications were entered into CPRS. - If there were any medications the patient should no longer take, they were discontinued. - The patient/caregiver was instructed to update this list, discard old lists, and take this list to the next appointment, whether with a [place] or non-VA provider. MH AIMS Testing: AIMS (Mental Health Instrument) The patient was evaluated for symptoms of tardive dyskinesia using the AIMS. Total score for items 1-7: 0 /es/ KATIE LLAMAS MD STAFF PSYCHIATRIST Signed: 08/31/2024 17:58 KATIE LLAMAS
--- OUTSIDE RECORDS SUMMARY | 2024-09-26 06:12 | XMS_ITS ---
Author Name [facility] [place] [facility] [place] [facility] [place] [facility] [place] Address [address] [place] [address] Care Team Providers Care Counter Stacker Name Role Phone IVAN VELAZQUEZ Primary Care Provider Unav ailable GILDARDO, LATONYA Unavailable Unavailable CALEB ORTIZ, ALYCIA Unavailable Unavailable DANISHA, MENDEZ Unavailable Unavailable CHAPUT, LETA Unavailable Unavailable FEIILAN, ADAN Unavailable Unavailable DIVINE, EWA Unavailable Unavailable DENISE LAST Unavailable Unavailable ITA, SONIDO Unavailable Unavailable HIEU PECK Unavailable Unavailable Insurance Providers: All historical and [...] (PPO) BASIC SELF Aug 21, 2013 111 [id number] [phone] GISELL SONG PATIENT [place] PREFERRED PROVIDER ORGANIZAT ION (PPO) FEP BASIC IND Aug 21, 2013 111 [id number] [phone] SONG GARDNER PATIENT ANTHEM FEP PREFERRED PROVIDER ORGANIZAT ION (PPO) FEP BASIC SELF Aug 21, 2013 111 [id number] [phone] GISELL SONG PATIENT BCBS FEP PREFERRED PROVIDER ORGANIZAT ION (PPO) [id number] Aug 21, 2013 111 [id number] SONG GARDNER PATIENT BCBS YOLANDA ATTN FEP CLAIMS PREFERRED PROVIDER ORGANIZAT ION (PPO) FEP BASIC IND Aug 21, 2013 111 [id number] [phone] SONG GARDNER PATIENT [place] FEP PREFERRED PROVIDER ORGANIZAT ION (PPO) FEP BASIC IND Aug 21, 2013 111 [id number] [phone] SONG GARDNER PATIENT [place] PREFERRED PROVIDER ORGANIZAT ION (PPO) BASIC INDIV IDUAL Aug 21, 2013 111 [id number] SONG MARAVILLA PATIENT [place] OF [place] FEP PREFERRED PROVIDER ORGANIZAT ION (PPO) BASIC SELF Aug 21, 2013 111 [id number] [phone] SONG GARDNER PATIENT [place] PREFERRED PROVIDER ORGANIZAT ION (PPO) BASIC SELF Aug 21, 2013 111 [id number] SONG MARAVILLA PATIENT [place] F[place] DENTAL DENTAL INSURANCE BASIC Aug 21, 2013 DENTAL [id number] [phone] SONG GARDNER PATIENT [place] FEP PREFERRED PROVIDER ORGANIZAT ION (PPO) BASIC SELF Aug 21, 2013 111 [id number] SONG GARDNER PATIENT [place] FEDERAL PREFERRED PROVIDER ORGANIZAT ION (PPO) BASIC SELF Aug 21, 2013 111 [id number] SONG GARDNER PATIENT [place] PREFERRED PROVIDER ORGANIZAT ION (PPO) STAND [facility] FAMIL Y Aug 18, 2006 105 [id number] SONG GARDNER PATIENT [employer] BCBS FEP MEDICARE SECONDARY (NO B EXC) FEHB BASIC MEDSE C Aug 21, 2013 111 [id number] [phone] SONG GARDNER PATIENT [employer] BCBS FEP PREFERRED PROVIDER ORGANIZAT ION (PPO) FEP STAND [place] Sep 23, 2006 [id number] SONG GARDNER PATIENT [place] FEP ([id number]) PRESCRIPT ION FEP RX Aug 21, 2013 [id number] [phone] GARDNER, SONG PATIENT [place] FEP [id number] PRESCRIPT ION FEPRX Aug 21, 2013 [id number] [phone] SONG GARDNER CAREELIJAH FEP BCBS PRESCRIPT ION CAREM ARK FEPRX Aug 21, 2013 [id number] SONG MARAV[place] [id number] PRESCRIPT ION [id number] Aug 21, 2013 [id number] SONG GARDNER [place]-F EP BCBS PRESCRIPT ION FEP Aug 21, 2013 [id number] SONG GARDNER MEDICARE ([facility]) MEDICARE () PART A Nov 16, 2021 PART A [id number] [phone] SONG GARDNER PATIENT MEDICARE ([facility]) MEDICARE () PART B Nov 16, 2021 PART B [id number] [phone] SONG GARDNER PATIENT MEDICARE ([place]) MEDICARE ) PART A Nov 16, 2021 PART A [id number] [phone] SONG GARDNER PATIENT MEDICARE ([facility]) MEDICARE () PART B Nov 16, 2021 PART B [id number] [phone] SONG GARDNER PATIENT MEDICARE (WN) MEDICARE () PART A Nov 16, 2021 PART A [id number] SONG GARDNER PATIENT MEDICARE (WN) MEDICARE () PART B Nov 16, 2021 PART B [id number] [phone] SONG GARDNER PATIENT MEDICARE ([place]) MEDICARE () PART A Nov 16, 2021 PART A [id number] SONG GARDNER PATIENT MEDICARE (WN) MEDICARE () PART B Nov 16, 2021 PART B [id number] SONG GARDNER PATIENT MEDICARE (WN) MEDICARE () PART A Nov 16, 2021 PART A [id number] SONG GARDNER PATIENT MEDICARE (WNR) MEDICARE (M) PART B Nov 16, 2021 PART B [id number] SONG GARDNER PATIENT MEDICARE (WNR) MEDICARE (M) PART A Nov 16, 2021 PART A [id number] SONG GARDNER PATIENT MEDICARE (WNR) MEDICARE (M) PART B Nov 16, 2021 PART B [id number] SONG GARDNER PATIENT MEDICARE PART D (WNR) MEDICARE (M) PART D Aug 18, 2023 PART D [id number] [phone] SONG GARDNER PATIENT Selected Encounter This section includes the information on record at [place] for the Encounter. Date/Time Encounter Type Encounter Description Reason Provider Source Sep 26, 2024 11:12 AM HP OL DIG ASSMT&MGMT 21+ [facility] - CLINICAL PHARMACIST ICD-10-CM Z79.899 Other technician terminal and repeater (current) drug therapy HIEU PECK [facility] Encounter Template Text not used by [place] Assessments - Encounter Diagnoses This section includes the primary and secondary diagnoses documented for the Encounter. Date/Time Primary/Secondary Diagnosis Diagnosis Name Provider Source Oct 14, 2024 04:09 PM PRIMARY Other technician terminal and repeater (current) drug therapy HIEU PECK [place] [facility] [place] [facility] Plan of Treatment: Future Appointments (+ 6 [...] Date/Time Appointment Type Appointme nt Facility Name Oct 05, 2024 03:30 PM AMBULATORY - PSYCHIATRY [facility] Oct 19, 2024 02:00 PM AMBULATORY - PSYCHIATRY [facility] Nov 02, 2024 03:00 PM AMBULATORY - PSYCHIATRY [facility] Nov 23, 2024 02:00 PM AMBULATORY - PSYCHIATRY [facility] Nov 30, 2024 03:00 PM AMBULATORY - PSYCHIATRY [facility] Dec 14, 2024 01:30 PM AMBULATORY - [facility] [place] [facility] Dec 14, 2024 02:00 PM AMBULATORY - MEDICINE [facility] [place] [facility] December 28, 2024 02:00 PM AMBULATORY - PSYCHIATRY [facility] January 11, 2025 03:30 PM AMBULATORY - PSYCHIATRY [facility] Feb 01, 2025 02:00 PM AMBULATORY - PSYCHIATRY [facility] Feb 15, 2025 03:00 PM AMBULATORY - PSYCHIATRY [facility] Mar 03, 2025 08:00 AM AMBULATORY - MEDICINE [facility] Social History: Smoking Status (Most current) and Tobacco Use (All prior to encounter date) This section includes the most current, and the historical, smoking and tobacco- related health factors from the [place] facility where the Encounter took place. Current Smoking Status This section includes the most current smoking, or tobacco-related health factor, from the [place] facility where the Encounter took place. Date/Time Current Smoking Status Comment [facility] Sep 17, 2021 11:00 AM VA-TOBACCO FORMER USER [place] [facility] [place] [facility] Tobacco Use History This section includes a history of the smoking, or tobacco-related health factors, that were collected on or before the date of the Encounter. The data comes from the [place] facility where the Encounter took place. Date/Time Smoking Status/Tobac co Use Comment Facility Sep 17, 2021 11:00 AM VA-TOBACCO QUIT 15 YRS OR MORE [facility] [place] [facility] Mar 01, 2020 01:30 PM VA-TOBACCO FORMER USER [facility] [place] [facility] Mar 01, 2020 01:30 PM VA-TOBACCO QUIT 15 YRS OR MORE [facility] [place] [facility] Jan 20, 2019 09:37 AM VA-TOBACCO NEVER USED [facility] [place] [facility] Dec 11, 2017 05:17 PM QUIT TOBACCO USE > 7 YEARS AGO [facility] [place] [facility] Jan 20, 2017 03:12 PM QUIT TOBACCO USE > 7 YEARS AGO [facility] [place] [facility] January 09, 2016 08:48 AM QUIT TOBACCO USE > 7 YEARS AGO . [facility] Jun 09, 2006 05:45 PM LIFETIME NON-TOBACCO USER [facility] Aug 22, 2003 03:27 PM HISTORY OF SMOKING [facility] Aug 22, 2003 03:27 PM QUIT TOBACCO USE IN PAST YEAR [facility] Jun 24, 2003 12:01 PM CURRENT SMOKER about 1 week/so [facility] Advance Directives: All historical and current Section [...] Apr 08, 2024 ADVANCE DIRECTIVE LATONYA EWING [facility] Sep 19, 2021 GOALS & PREFERENCES TO INFORM LIFE-SUSTAINING TREATMENT PLAN MARY VIVAS [facility] Sep 19, 2020 ADVANCE DIRECTIVE ALANA MONIQUE [facility] Encounter Notes: All associated encounter notes This section contains the clinical notes associated to the Encounter. Date/Time Encounter Note(s) Provider Source Sep 26, 2024 01:06 PM ADDENDUM: LOCAL TITLE: Addendum STANDARD TITLE: ADDENDUM DATE OF NOTE: SEP 26, 2024@13:06:25 ENTRY DATE: SEP 26, 2024@13:06:26 AUTHOR: HIEU PECK COSIGNER: URGENCY: STATUS: COMPLETED For MH: ------- - For your awareness, 's rivastigmine and escitalopram Rxs are out of refills and were last filled 09/01/24 for a 30-day supply. Please enter new Rxs to avoid interruptions in therapy. Could also consider 90-day supplies, if deemed appropriate, as appears to be stable on these agents. /erasto/ HIEU PECK [facility] Clinical Pharmacist Practitioner Signed: 09/26/2024 13:07 Receipt Acknowledged By: 09/27/2024 14:56 /es/ KATIE LLAMAS MD STAFF PSYCHIATRIST --- Original Document --- 09/26/24 [facility] MEDICATION REVIEW: Song Maravilla is a 68 year-old WHITE MALE. PMH (per problem list/chart review): HTN, HLD, BPH with LUTS, depression with psychotic features, anxiety, LBD with behavioral disturbance, VALENTINO, seasonal allergies, dry eyes, macular scar, impaired fasting glucose, knee OA, degeneration of cartilage and/or meniscus of knee, constipation, malignant melanoma of lower limb s/p complete excision in 2019, hx of microscopic hematuria, hx of internal hemorrhoids, hx of testicular hypofunction, hx of exercise-induced bronchospasm, polypoidal choroidal vasculopathy, insomnia Alcohol (-) Tobacco (-) Allergies/ADR: PRAZOSIN (nightmares) Active Outpatient Medications Status 1) ASPIRIN 81MG EC TAB TAKE ONE TABLET BY MOUTH ONCE DAILY TO ACTIVE PREVENT STROKE/HEART ATTACK Indication: FOR MYOCARDIAL REINFARCTION PREVENTION 2) CLONAZEPAM 0.5MG TAB TAKE ONE-HALF TABLET BY MOUTH FOUR ACTIVE TIMES A DAY MAY TAKE AN ADDITIONAL [...] TAKE ONE TABLET BY MOUTH ONCE ACTIVE DAILY FOR MOOD/DEPRESSION Indication: FOR MAJOR DEPRESSIVE DISORDER 6) MELATONIN 5MG CAP/TAB TAKE TWO CAPSULE/TABLET BY MOUTH AT ACTIVE BEDTIME NEEDED Indication: FOR INSOMNIA 7) MEMANTINE HCL 10MG TAB TAKE ONE TABLET BY MOUTH TWICE DAILY ACTIVE Indication: DEMENTIA 8) METOPROLOL SUCCINATE 100MG SA TAB TAKE ONE TABLET BY MOUTH ACTIVE ONCE DAILY FOR BLOOD PRESSURE/HEART Indication: FOR [...] TAB TAKE ONE-HALF TABLET BY MOUTH ACTIVE TWICE DAILY AND TAKE TWO AND ONE-HALF TABLETS AT BEDTIME Indication: FOR MOOD * CHANGE IN HS DOSING from 3.5 tabs (87.5mg) --> 2.5 tabs (62.5mg) 12) RIVASTIGMINE TARTRATE 3MG CAP TAKE ONE CAPSULE BY MOUTH ACTIVE TWICE DAILY Indication: FOR DEMENTIA 13) SIMVASTATIN 40MG TAB TAKE ONE TABLET BY MOUTH AT BEDTIME FOR ACTIVE CHOLESTEROL Indication: FOR HIGH CHOLESTEROL 14) TAMSULOSIN HCL 0.4MG CAP TAKE TWO CAPSULES BY MOUTH AT ACTIVE BEDTIME Indication: FOR ENLARGED PROSTATE 15) TRAZODONE HCL 100MG TAB TAKE TWO TABLETS BY MOUTH AT BEDTIME ACTIVE NEEDED Indication: FOR INSOMNIA ASSOCIATED WITH DEPRESSION THE ABOVE MEDICATIONS WERE REVIEWED FOR: ADR, potential incompatibilities, compliance, duplication of therapy, and indications on problem list Other Rx/OTC/Herbals: none High Alert Meds: clonazepam, quetiapine, trazodone Look Alike/Sound Alike Meds: clonazepam, escitalopram, metoprolol succinate, quetiapine, trazodone Duplication of Therapy: none Excessive Duration: none Vitals: ======= Ht: 72 in [182.9 cm] (08/20/2021 15:11) Wt: 201.6 lb [91.44 kg] (07/27/2024 12:30) BMI: 27.4 BP: 110/70 (07/27/2024 12:30) HR: 81 (07/27/2024 12:30) Pain: 0 (07/27/2024 12:30) Labs: ===== SERUM Na K BUN SCr 05/17/24 137 4 18 0.91 06/03/22 140 4.4 22 1.05 eGFR (CKD-EPI 2020): above 90 (05/17/24) CrCl (C&G, SCr 0.91, adj BW): ~93 mL/min SERUM AST ALT 05/17/24 22 24 BLOOD WBC Hgb Hct MCV Plt 05/17/24 7.2 15 44.3 82.3 201 06/03/22 6.25 15 44.5 82.6 213 A1c: 5.4 % (05/17/24) TSH: 1.24 uIU/mL (05/17/24) Vit B12: 517 pg/mL (05/17/24) Folate: 8.86 ng/mL (08/25/19) SERUM LDL HDL TG Tot Chol 05/17/24 95 39 L 147 163 06/03/22 140 H 40 162 H 212 H Vit D: 44 ng/mL (10/01/21) Ca: 9.2 mg/dL (10/01/21) Alb: 3.8 g/dL (05/17/24) ASSESSMENT: In the last 90 days: - No falls/hospitalizations/infection s noted - Per the 07/20/24 Psych note, 's HS quetiapine dose was reduced from 87.5mg --> 62.5mg to minimize risk of AEs with the addition of a PRN daily dose of clonazepam. - Per the 07/27/24 [facility] RN note, denies pain. INTERVENTIONS/SUGGESTIONS: 1. Patient's medications were reviewed for significant drug interactions. * aspirin/escitalopram/trazodone: concurrent use may increase bleeding risk; monitor for signs/sx of bleeding, last Hgb/Hct WNL * clonazepam/quetiapine/trazodone: concurrent use may increase risk of [employer] SAL[employer] EXECUTIVE depression; monitor vitals and for excessive sedation * escitalopram/metoprolol: concurrent use may increase metoprolol exposure; monitor vitals and for signs/sx of orthostasis * escitalopram/quetiapine/trazodon e: concurrent use may increase risk of QTc prolongation; last EKG from February 2021 - QTc 441 ms * escitalopram/trazodone: concurrent use may increase risk of serotonin syndrome; monitor for signs/sx (neuromuscular abnormalities, tachycardia, diaphoresis, hyperthermia, N/V, diarrhea, or AMS) * rivastigmine/metoprolol: concurrent use may increase risk of bradycardia; monitor vitals * escitalopram/tamsulosin: concurrent use may increase tamsulosin exposure; monitor for signs/sx of orthostasis and ensure takes tamsulosin prior to a meal to support toleration * metoprolol/tamsulosin: concurrent use may increase risk of orthostasis and ensure takes tamsulosin prior to a meal to support toleration 2. Patient has reduced renal function with an estimated creatinine clearance of ~93 mL/min, therefore at risk of accumulation of renally cleared drugs. LFTs WNL. Current medications are dosed appropriately for the patient's renal and hepatic function. 3. Medications reviewed to determine if regimen could contribute to falls. Several agents on 's active medication list may increase fall risk including clonazepam, escitalopram, melatonin, memantine, metoprolol, quetiapine, rivastigmine, simvastatin, tamsulosin, and trazodone. Also, aspirin use may increase bleeding risk should a fall occur. No documented falls over the past year per chart review. To reduce the risk for falls, educate pt re: safe postural transitions and signs/sx of orthostatic hypotension. Also, monitor for dizziness, drowsiness, sedation, confusion, blurred vision, extrapyramidal symptoms, hypotension, bradycardia, fatigue, ataxia, psychomotor impairment, anterograde amnesia, and muscle pain/weakness given current medication regimen. 4. All medical conditions have appropriate medication treatment. 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 - closely followed by Psychiatry (last seen 08/31/24); AIMS of 0 (08/31/24); currently on rivastigmine and memantine for dementia, on trazodone and melatonin for sleep (insomnia related to anxiety sx) - would encourage scheduled use of melatonin to support efficacy; also on escitalopram, quetiapine (recent dose decrease of HS dose as recommended by Psych to minimize risk of AEs), and clonazepam (recent addition of PRN daily dose with decrease in quetiapine); underwent Neuropsych testing in Jul 2023; last MOCA * VALENTINO - unable to tolerate CPAP d/t anxiety * OA - of knee; previously on celecoxib, currently uses topical NSAID; no recent pain complaints per chart review. * dry eyes - not currently on pharmacotherapy, monitor for symptoms and consider carboxymethylcellulose eye drops versus consulting non-[place] retinal specialist * constipation - on PRN polyethylene glycol and PRN docusate * malignant melanoma of lower limb - s/p complete excision in 2019, Derm visit in Apr 2020; [facility] PCP recently encouraged specialty f/u * hx of exercise-induced bronchospasm - monitor for related sx, could consider a PRN albuterol MDI (may benefit from an aerochamber) 5. All medications have an appropriate indication and supporting clinical symptoms. * AREDS 2 - recommended by non-VA retinal specialist for hx of polypoidal choroidal vasculopathy * simvastatin - on high-intensity dosing, hx of HLD, last LDL of 95 (at goal given indication for primary ASCVD prevention); with LFTs WNL; antipsychotic use may be contributing to HLD 6. Adherence Concerns: no concerns at this time - medications managed by amrita's 7. Health Maintenance: > Immunizations: [place] is due for the following immunizations per chart review and CDC recommendations: * RSV * PCV20 - received PPSV23 on 08/04/20 > Bladder/Bowel: * Inquire about incontinence and severity biannually. > Bone Health: * last vit D WNL, not on supplementation * last Ca WNL, not on supplementation > Aspirin: * on aspirin for primary ASCVD prevention * hx of microscopic hematuria 8. Patient with zero refills on: PRN polyethylene glycol, rivastigmine, escitalopram 9. Continue to review quarterly. Recommendations: For [facility] IDT: - Could consider ordering microalbumin/Cr and folate levels with next scheduled labwork. - Please assess 's willingness to receive the PCV20 and RSV vaccines during next scheduled visit. For : ------- - For your awareness, amrita's rivastigmine and escitalopram Rxs are out of refills and were last filled 09/01/24 for a 30-day supply. Please enter new Rxs to avoid interruptions in therapy. Could also consider 90-day supplies, if deemed appropriate, as appears to be stable on these agents. The details of this review were shared with the IDT in order to assist in creating a care plan designed to provide services focused on the health and well being of the patient. Time Spent: 45 min /erasto/ HIEU PECK [facility] Clinical Pharmacist Practitioner Signed: 09/26/2024 13:05 Receipt Acknowledged By: * AWAITING SIGNATURE * NURIS SERVIN 09/27/2024 08:15 /erasto/ IVAN VELAZQUEZ RN,MSN,KNITTING TESTER-C [facility] NURSE PRACTITIONER HIEU PECK [place] [facility] [place] [facility] Sep 26, 2024 11:13 AM [facility] MEDICATION MGT NOTE: LOCAL TITLE: [facility] PHARM[facility]Y MEDICATION REVIEW STANDARD TITLE: HB MEDICATION MGT NOTE DATE OF NOTE: SEP 26, 2024@11:13 ENTRY DATE: SEP 26, 2024@11:13:58 AUTHOR: HIEU PECK EXP COSIGNER: URGENCY: STATUS: COMPLETED [facility] MEDICATION REVIEW Has ADDENDA Song Maravilla is a 68 year-old WHITE MALE. PMH (per problem list/chart review): HTN, HLD, BPH with LUTS, depression with psychotic features, anxiety, LBD with behavioral disturbance, VALENTINO, seasonal allergies, dry eyes, macular scar, impaired fasting glucose, knee OA, degeneration of cartilage and/or meniscus of knee, constipation, malignant melanoma of lower limb s/p complete excision in 2019, hx of microscopic hematuria, hx of internal hemorrhoids, hx of testicular hypofunction, hx of exercise-induced bronchospasm, polypoidal choroidal vasculopathy, insomnia Alcohol (-) Tobacco (-) Allergies/ADR: PRAZOSIN (nightmares) Active Outpatient Medications Status 1) ASPIRIN 81MG EC TAB TAKE ONE TABLET BY MOUTH ONCE DAILY TO ACTIVE PREVENT STROKE/HEART ATTACK Indication: FOR MYOCARDIAL REINFARCTION PREVENTION 2) CLONAZEPAM 0.5MG TAB TAKE ONE-HALF TABLET BY MOUTH FOUR ACTIVE TIMES A DAY MAY TAKE AN ADDITIONAL [...] TAKE ONE TABLET BY MOUTH ONCE ACTIVE DAILY FOR MOOD/DEPRESSION Indication: FOR MAJOR DEPRESSIVE DISORDER 6) MELATONIN 5MG CAP/TAB TAKE TWO CAPSULE/TABLET BY MOUTH AT ACTIVE BEDTIME NEEDED Indication: FOR INSOMNIA 7) MEMANTINE HCL 10MG TAB TAKE ONE TABLET BY MOUTH TWICE DAILY ACTIVE Indication: DEMENTIA 8) METOPROLOL SUCCINATE 100MG SA TAB TAKE ONE TABLET BY MOUTH ACTIVE ONCE DAILY FOR BLOOD PRESSURE/HEART Indication: FOR [...] TAB TAKE ONE-HALF TABLET BY MOUTH ACTIVE TWICE DAILY AND TAKE TWO AND ONE-HALF TABLETS AT BEDTIME Indication: FOR MOOD * CHANGE IN HS DOSING from 3.5 tabs (87.5mg) --> 2.5 tabs (62.5mg) 12) RIVASTIGMINE TARTRATE 3MG CAP TAKE ONE CAPSULE BY MOUTH ACTIVE TWICE DAILY Indication: FOR DEMENTIA 13) SIMVASTATIN 40MG TAB TAKE ONE TABLET BY MOUTH AT BEDTIME FOR ACTIVE CHOLESTEROL Indication: FOR HIGH CHOLESTEROL 14) TAMSULOSIN HCL 0.4MG CAP TAKE TWO CAPSULES BY MOUTH AT ACTIVE BEDTIME Indication: FOR ENLARGED PROSTATE 15) TRAZODONE HCL 100MG TAB TAKE TWO TABLETS BY MOUTH AT BEDTIME ACTIVE NEEDED Indication: FOR INSOMNIA ASSOCIATED WITH DEPRESSION THE ABOVE MEDICATIONS WERE REVIEWED FOR: ADR, potential incompatibilities, compliance, duplication of therapy, and indications on problem list Other Rx/OTC/Herbals: none High Alert Meds: clonazepam, quetiapine, trazodone Look Alike/Sound Alike Meds: clonazepam, escitalopram, metoprolol succinate, quetiapine, trazodone Duplication of Therapy: none Excessive Duration: none Vitals: ======= Ht: 72 in [182.9 cm] (08/20/2021 15:11) Wt: 201.6 lb [91.44 kg] (07/27/2024 12:30) BMI: 27.4 BP: 110/70 (07/27/2024 12:30) HR: 81 (07/27/2024 12:30) Pain: 0 (07/27/2024 12:30) Labs: ===== SERUM Na K BUN SCr 05/17/24 137 4 18 0.91 06/03/22 140 4.4 22 1.05 eGFR (CKD-EPI 2020): above 90 (05/17/24) CrCl (C&G, SCr 0.91, adj BW): ~93 mL/min SERUM AST ALT 05/17/24 BLOOD WBC Hgb Hct MCV Plt 05/17/24 7.2 15 44.3 82.3 201 06/03/22 6.25 15 44.5 82.6 213 A1c: 5.4 % (05/17/24) TSH: 1.24 uIU/mL (05/17/24) Vit B12: 517 pg/mL (05/17/24) Folate: 8.86 ng/mL (08/25/19) SERUM LDL HDL TG Tot Chol 05/17/24 95 39 L 147 163 06/03/22 140 H 40 162 H 212 H Vit D: 44 ng/mL (10/01/21) Ca: 9.2 mg/dL (10/01/21) Alb: 3.8 g/dL (05/17/24) ASSESSMENT: In the last 90 days: - No falls/hospitalizations/infection s noted - Per the 07/20/24 Psych note, 's HS quetiapine dose was reduced from 87.5mg --> 62.5mg to minimize risk of AEs with the addition of a PRN daily dose of clonazepam. - Per the 07/27/24 [facility] RN note, denies pain. INTERVENTIONS/SUGGESTIONS: 1. Patient's medications were reviewed for significant drug interactions. * aspirin/escitalopram/trazodone: concurrent use may increase bleeding risk; monitor for signs/sx of bleeding, last Hgb/Hct WNL * clonazepam/quetiapine/trazodone: concurrent use may increase risk of [employer]IVE depression; monitor vitals and for excessive sedation * escitalopram/metoprolol: concurrent use may increase metoprolol exposure; monitor vitals and for signs/sx of orthostasis * escitalopram/quetiapine/trazodon e: concurrent use may increase risk of QTc prolongation; last EKG from February 2021 - QTc 441 ms * escitalopram/trazodone: concurrent use may increase risk of serotonin syndrome; monitor for signs/sx (neuromuscular abnormalities, tachycardia, diaphoresis, hyperthermia, N/V, diarrhea, or AMS) * rivastigmine/metoprolol: concurrent use may increase risk of bradycardia; monitor vitals * escitalopram/tamsulosin: concurrent use may increase tamsulosin exposure; monitor for signs/sx of orthostasis and ensure takes tamsulosin prior to a meal to support toleration * metoprolol/tamsulosin: concurrent use may increase risk of orthostasis and ensure takes tamsulosin prior to a meal to support toleration 2. Patient has reduced renal function with an estimated creatinine clearance of ~93 mL/min, therefore at risk of accumulation of renally cleared drugs. LFTs WNL. Current medications are dosed appropriately for the patient's renal and hepatic function. 3. Medications reviewed to determine if regimen could contribute to falls. Several agents on 's active medication list may increase fall risk including clonazepam, escitalopram, melatonin, memantine, metoprolol, quetiapine, rivastigmine, simvastatin, tamsulosin, and trazodone. Also, aspirin use may increase bleeding risk should a fall occur. No documented falls over the past year per chart review. To reduce the risk for falls, educate pt re: safe postural transitions and signs/sx of orthostatic hypotension. Also, monitor for dizziness, drowsiness, sedation, confusion, blurred vision, extrapyramidal symptoms, hypotension, bradycardia, fatigue, ataxia, psychomotor impairment, anterograde amnesia, and muscle pain/weakness given current medication regimen. 4. All medical conditions have appropriate medication treatment. 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 - closely followed by Psychiatry (last seen 08/31/24); AIMS of 0 (08/31/24); currently on rivastigmine and memantine for dementia, on trazodone and melatonin for sleep (insomnia related to anxiety sx) - would encourage scheduled use of melatonin to support efficacy; also on escitalopram, quetiapine (recent dose decrease of HS dose as recommended by Psych to minimize risk of AEs), and clonazepam (recent addition of PRN daily dose with decrease in quetiapine); underwent Neuropsych testing in Jul 2023; last MOCA * VALENTINO - unable to tolerate CPAP d/t anxiety * OA - of knee; previously on celecoxib, currently uses topical NSAID; no recent pain complaints per chart review. * dry eyes - not currently on pharmacotherapy, monitor for symptoms and consider carboxymethylcellulose eye drops versus consulting non-VA retinal specialist * constipation - on PRN polyethylene glycol and PRN docusate * malignant melanoma of lower limb - s/p complete excision in 2019, Derm visit in Apr 2020; [facility] PCP recently encouraged specialty f/u * hx of exercise-induced bronchospasm - monitor for related sx, could consider a PRN albuterol MDI (may benefit from an aerochamber) 5. All medications have an appropriate indication and supporting clinical symptoms. * AREDS 2 - recommended by non-VA retinal specialist for hx of polypoidal choroidal vasculopathy * simvastatin - on high-intensity dosing, hx of HLD, last LDL of 95 (at goal given indication for primary ASCVD prevention); with LFTs WNL; antipsychotic use may be contributing to HLD 6. Adherence Concerns: no concerns at this time - medications managed by 's 7. Health Maintenance: > Immunizations: [place] is due for the following immunizations per chart review and CDC recommendations: * RSV * PCV20 - received PPSV23 on 08/04/20 > Bladder/Bowel: * Inquire about incontinence and severity biannually. > Bone Health: * last vit D WNL, not on supplementation * last Ca WNL, not on supplementation > Aspirin: * on aspirin for primary ASCVD prevention * hx of microscopic hematuria 8. Patient with zero refills on: PRN polyethylene glycol, rivastigmine, escitalopram 9. Continue to review quarterly. Recommendations: For [facility] IDT: - Could consider ordering microalbumin/Cr and folate levels with next scheduled labwork. - Please assess 's willingness to receive the PCV20 and RSV vaccines during next scheduled visit. For MH: ------- - For your awareness, 's rivastigmine and escitalopram Rxs are out of refills and were last filled 09/01/24 for a 30-day supply. Please enter new Rxs to avoid interruptions in therapy. Could also consider 90-day supplies, if deemed appropriate, as appears to be stable on these agents. The details of this review were shared with the IDT in order to assist in creating a care plan designed to provide services focused on the health and well being of the patient. Time Spent: 45 min /erasto/ HIEU PECK [facility] Clinical Pharmacist Practitioner Signed: 09/26/2024 13:05 Receipt Acknowledged By: 09/27/2024 15:59 /erasto/ NURIS SERVIN RN [facility] sanitation superintendent 09/27/2024 08:15 /erasto/ IVAN VELAZQUEZ RN,MSN,KNITTING TESTER-C [facility] NURSE PRACTITIONER 09/26/2024 ADDENDUM STATUS: COMPLETED For MH: ------- - For your awareness, 's rivastigmine and escitalopram Rxs are out of refills and were last filled 09/01/24 for a 30-day supply. Please enter new Rxs to avoid interruptions in therapy. Could also consider 90-day supplies, if deemed appropriate, as appears to be stable on these agents. /erasto/ HIEU PECK [facility] Clinical Pharmacist Practitioner Signed: 09/26/2024 13:07 Receipt Acknowledged By: 09/27/2024 14:56 /erasto/ KATIE LLAMAS MD STAFF PSYCHIATRIST 09/27/2024 ADDENDUM STATUS: COMPLETED ordered, but keep 30 day for now as we may change /azeb LLAMAS MD STAFF PSYCHIATRIST Signed: 09/27/2024 14:57 HIEU PECK [place] [facility]
--- OUTSIDE RECORDS SUMMARY | 2024-10-05 10:30 | XMS_ITS | Encounter Summary ---
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 Name Role Phone IVAN CHERRY Primary Care [...] (PPO) BASIC SELF Aug 21, 2013 111 [id number] [phone] EricMARIA ELENA CELIO PATIENT [place]THE[place] F[place] PREFERRED PROVIDER ORGANIZAT ION (PPO) FEP BASIC IND Aug 21, 2013 111 [id number] [phone] CELIO GARDNER PATIENT ANTHEM FEP PREFERRED PROVIDER ORGANIZAT ION (PPO) FEP BASIC SELF Aug 21, 2013 111 [id number] [phone] EricHONEYELVIACELIO BARAHONA PATIENT BCBS FEP PREFERRED PROVIDER ORGANIZAT ION (PPO) [id number] Aug 21, 2013 111 [id number] CELIO GARDNER PATIENT BCBS YOLANDA ATTN FEP CLAIMS PREFERRED PROVIDER ORGANIZAT ION (PPO) FEP BASIC IND Aug 21, 2013 111 [id number] [phone] CELIO GARDNER PATIENT [place] FEP PREFERRED PROVIDER ORGANIZAT ION (PPO) FEP BASIC IND Aug 21, 2013 111 [id number] [phone] CELIO GARDNER PATIENT [place] FEP PREFERRED PROVIDER ORGANIZAT ION (PPO) BASIC INDIV IDUAL Aug 21, 2013 111 [id number] [phone] CELIO JAMESON PATIENT [place] OF [place] FEP PREFERRED PROVIDER ORGANIZAT ION (PPO) BASIC SELF Aug 21, 2013 111 [id number] CELIO GARDNER PATIENT [place] FEP PREFERRED PROVIDER ORGANIZAT ION (PPO) BASIC SELF Aug 21, 2013 111 [id number] CELIO JAMESON PATIENT [place] FEP DENTAL DENTAL INSURANCE BASIC Aug 21, 2013 DENTAL [id number] [phone] CELIO GARDNER PATIENT [place] FEP PREFERRED PROVIDER ORGANIZAT ION (PPO) BASIC SELF Aug 21, 2013 111 [id number] CELIO GARDNER PATIENT [place] FEDERAL PREFERRED PROVIDER ORGANIZAT ION (PPO) BASIC SELF Aug 21, 2013 111 [id number] 27 CELIO GARDNER PATIENT [place] FEDERAL PREFERRED PROVIDER ORGANIZAT ION (PPO) STAND MAGDALENA FAMIL Y Aug 18, 2006 105 [id number] CELIO GARDNER PATIENT KEHINDEFIRST BCBS FEP MEDICARE SECONDARY (NO B EXC) FEHB BASIC MEDSE C Aug 21, 2013 111 [id number] [phone] CELIO GARDNER PATIENT CAREFIRST BCBS FEP PREFERRED PROVIDER ORGANIZAT ION (PPO) FEP STAND MAGDALENA Sep 23, 2006 [id number] CELIO GARDNER PATIENT [place] FEP ([id number]) PRESCRIPT ION FEP RX Aug 21, 2013 [id number] [phone] CELIO GARDNER [place] FEP [id number] PRESCRIPT ION FEPRX Aug 21, 2013 [id number] [phone] CELIO GARDNER [place] FEP BCBS PRESCRIPT ION CAREM ARK FEPRX Aug 21, 2013 [id number] [phone] CELIO JAMESON FEP RX [id number] PRESCRIPT ION [id number] Aug 21, 2013 [id number] [phone] CELIO GARDNER [place]ARK-F EP BCBS PRESCRIPT ION FEP Aug 21, 2013 [id number] CELIO GARDNER PATIENT MEDICARE ([facility]) MEDICARE () PART A Nov 16, 2021 PART A [id number] [phone] CELIO GARDNER PATIENT MEDICARE ([facility]) MEDICARE (M) PART B Nov 16, 2021 PART B [id number] CELIO GARDNER PATIENT MEDICARE ([facility]) MEDICARE (M) PART A Nov 16, 2021 PART A [id number] [phone] CELIO GARDNER PATIENT MEDICARE ([facility]) MEDICARE (M) PART B Nov 16, 2021 PART B [id number] [phone] CELIO GARDNER PATIENT MEDICARE ([facility]) MEDICARE (M) PART A Nov 16, 2021 PART A [id number] CELIO GARDNER PATIENT MEDICARE ([facility]) MEDICARE (M) PART B Nov 16, 2021 PART B [id number] CELIO GARDNER PATIENT MEDICARE ([facility]) MEDICARE (M) PART A Nov 16, 2021 PART A [id number] CELIO GARDNER PATIENT MEDICARE ([facility]) MEDICARE (M) PART B Nov 16, 2021 PART B [id number] [phone] CELIO GARDNER PATIENT MEDICARE ([facility]) MEDICARE (M) PART A Nov 16, 2021 PART A [id number] CELIO GARDNER PATIENT MEDICARE (WNR) MEDICARE (M) PART B Nov 16, 2021 PART B [id number] CELIO GARDNER PATIENT MEDICARE (WNR) MEDICARE (M) PART A Nov 16, 2021 PART A [id number] CELIO GARDNER PATIENT MEDICARE (WNR) MEDICARE (M) PART B Nov 16, 2021 PART B [id number] [phone] CELIO GARDNER PATIENT MEDICARE PART D (WNR) MEDICARE (M) PART D Aug 18, 2023 PART D [id number] [phone] CELIO GARDNER PATIENT Selected Encounter This section includes the information on record at [place] for the Encounter. Date/Time Encounter Type Encounter Description Reason Provider Source Oct 05, 2024 03:30 PM OFFICE O/P EST MOD 30 MIN [facility] - IND ICD-10-CM F33.3 Major depressv disorder, recurrent, severe w psych symptoms VIGNESH LLAMAS Alcides Encounter Template Text not used by [place] Assessments - Encounter Diagnoses This section includes the primary and secondary diagnoses documented for the Encounter. Date/Time Primary/Secondary Diagnosis Diagnosis Name Provider Source Oct 18, 2024 07:11 AM PRIMARY Major depressv disorder, recurrent, severe w psych symptoms KATIE LLAMAS Plan of Treatment: Future Appointments (+ 6 months) and Future Tests (+/- 45 days) The Plan of Treatment section includes future care activities for the patient from all [place] treatmentfacilities. This section includes future appointments and future orders which are active, pending or scheduled. Future Appointments This section includes appointments that were scheduled to occur 6 months from the date of the Encounter, up to a maximum of 20 appointments. The data comes from all [place] treatment facilities. Appointment Date/Time Appointment Type Appointme nt Facility Name Oct 19, 2024 02:00 PM AMBULATORY - PSYCHIATRY [facility] Nov 02, 2024 03:00 PM AMBULATORY - PSYCHIATRY [facility] Nov 23, 2024 02:00 PM AMBULATORY - PSYCHIATRY [facility] Nov 30, 2024 03:00 PM AMBULATORY - PSYCHIATRY [facility] Dec 14, 2024 01:30 PM AMBULATORY [facility] [place] [facility] Dec 14, 2024 02:00 PM AMBULATORY [place]ICINE [place] [facility] [place] [facility] December 28, 2024 02:00 PM AMBULATORY - PSYCHIATRY [facility] January 11, 2025 03:30 PM AMBULATORY - PSYCHIATRY [facility] Feb 01, 2025 02:00 PM AMBULATORY - PSYCHIATRY [facility] Feb 15, 2025 03:00 PM AMBULATORY - PSYCHIATRY [facility] Mar 03, 2025 08:00 AM AMBULATORY - MEDICINE [facility] Advance Directives: All historical and current Section Date Range: From patient's date of to the date document was created. This section includes ALL of a patient's completed or amended [place] Advance and Rescinded Directives. The entries below indicate that a directive exists for the patient, but an actual copy is not included with this document. The data comes from all [place] facilities. Date Advance Directives Provider Source Apr 08, 2024 ADVANCE DIRECTIVE LATONYA EWING [place] [facility] Sep 19, 2021 GOALS & PREFERENCES TO INFORM LIFE-SUSTAINING TREATMENT PLAN [facility]ARY [facility]AS [place] [facility] [place] [facility] Sep 19, 2020 ADVANCE DIRECTIVE ALANA MONIQUE [facility] Encounter Notes: All associated encounter notes This section contains the clinical notes associated to the Encounter. Date/Time Encounter Note(s) Provider Source Oct 05, 2024 03:34 PM TELEHEALTH NOTE: LOCAL TITLE: [place] VIDEO CONNECT PSYCHIATRIST NOTE STANDARD TITLE: TELEHEALTH NOTE DATE OF NOTE: OCT 05, 2024@15:34 ENTRY DATE: OCT 05, 2024@15:34:31 AUTHOR: KATIE LLAMAS EXP COSIGNER: URGENCY: STATUS: COMPLETED [place] [facility]IDEO CONNECT PSYCHIATRIST NOTE Has ADDENDA [place] Video Connect (VVC) Standard Documentation [facility] Clinician Resources Only: E911 (Emergency Call Relay Center): [phone] [facility] Crisis Line - 248 then press #1. MARIBEL Suicide Coordinator [phone], Ext. [phone]; Back-up Ext. [phone] MARIBEL Sm[place] [phone] Introduction: Visit is being conducted by [place] [facility]. [place] identified with 2 identifiers: [X] Full Name [X] Date of [ ] VA ID Card Emergency Plan: confirmed and/or provided the following information in case of emergency or technology failure. PATIENT PHONE - PHONE NUMBER [CELLULAR] - Is patient phone number correct, if not, enter below: [place]'s phone number: CELIO GARDNER [address], [place], [address] 's present location and address for appointment: home [place]'s emergency contact name and phone number: chart [place] reported that location is private and safe: Yes Informed Consent: informed of the risks and benefits of Telehealth video care. has the right to refuse video services. If refuses video visit, a [id number] visit will be scheduled. verbalized consent for this video visit: Yes provided consent for any other persons present for visit: yes If yes, who and relationship to patient: pt Secure visit: Visit was locked for security and privacy:Yes 30 min for encounter, including chart review, interview, charting chart reviewed Patient seen with his , Dennise Ongoing depressed mood and anxiety - no change. Affect remains blunted. No PI or delusions presented Denied AHs and VHs. Mildly disorganized, processing of info slow. Again paucity of content noted. Denies SI and violent ideation. Cognitive exam seems to be notable for more memory problems and processing difficulties. MOCA 15/30 in 07/2024 Speech again has relatively long response latency, slow responses, limited content. Sleep is usually good Walking on treadmill regularly In general the patient is very reluctant to decrease medication/doses, as he feels he gets some partial benefit and he does not want to risk increased symptoms, but we discuss considering further seroquel decrease gradually. And it has been gradually reduced over time (decreased since last appt -- see below). Because the patient has probably modest benefit with decreased anxiety/distress with the current regimen, it is reasonable to continue them for the patient. But as also noted in previous appointments, we will try to gradually lower some of psychiatric medications when possible to try to minimize possible side effects. But today the focus was on trying duloxetine trial for depression and anxiety and tapering lexapro - see below. Denies current psych med side effects; no [...] Hypofunction 19. Benign prostatic hyperplasia (SNOMED CT 905899418) 20. Impaired Fasting Glucose 21. Exercise induced bronchospasm (SNOMED CT 489942461) 22. Hyperlipidemia (SNOMED CT 33206978) Active Outpatient Medications (including Supplies): Active Outpatient [...] dose doxepin was not helpful for insomnia Tea -- not tolerate due to confusion wellbutrin [...] denied suicidal and violent ideation, but the [employer] Crisis Line information and number were reviewed [...] 3 MG TWICE DAILY, for dementia, well-tolerated after discussion last appt and today, we decided on trial of duloxetine 20 mg daily (starting low dose) depression and anxiety -- titrate next visit. Will taper lexapro. I reviewed the medication instructions/plan, side effect profile, and treatment expectations with the patient/ DECREASE LOW-DOSE LEXAPRO TO 2.5 MG DAILY -- start of taper off -- dc next appt. Note that we considered nortriptyline trial, but [...] previous appointments. And tapereed off depakote previously. Pt has gradually decreased quetiapine to 62.5 MG TDD. QUETIAPINE 12.5 MG AT AND 50 MG QHS. Continue gradual reducation as tolerated. Quetiapine may provide some reduction in anxiety/mild [...] glucose Patient has transferred primary care to [facility] -- Kathy Cherry as primary care in [place] See prior notes for discussions of previous neurologic evals of [place] [facility] suggesting Lewy Body Dementia. See Dr. Johnson's notes. But more recent evaluation by neurologist at [facility] may suggest other form of dementia. But [...] greatly appreciate his input. neurologist, Osman Ma, [facility] [phone] As noted before, note that the patient had a brain JEZ SPECT study at [facility]--10/31/2023 and it showed absence of activity [...] previously, pt had psychiatry consult 01/14 at [facility] and his sent the assessment [...] of active outpatient prescriptions dispensed from this [facility] (local) and dispensed from another VA or DoD facility (remote) as well as inpatient orders [...] AIMS. Total score for items 1-7: 0 /erasto/ KATIE LLAMAS MD STAFF PSYCHIATRIST Signed: 10/05/2024 16:40 Receipt Acknowledged By: 10/06/2024 08:15 /erasto/ Saira Fernández ADVANCED PATIENT ASSESSMENT COORDINATOR 10/05/2024 ADDENDUM STATUS: UNSIGNED You may not VIEW this UNSIGNED Addendum. KATIE LLAMAS
--- OUTSIDE RECORDS SUMMARY | 2024-10-19 09:00 | XMS_ITS | Encounter Summary ---
Author Name [facility] [facility] [place] [facility] [place] Address [address] [place] [address] Care Team Providers Care Rn Cvicu Name Role Phone IVAN VELAZQUEZ Primary Care [...] (PPO) BASIC SELF Aug 21, 2013 111 [id number] [phone] GISELLCELIO PATIENT ANTHEM [place] F[place] PREFERRED PROVIDER ORGANIZAT ION (PPO) FEP BASIC IND Aug 21, 2013 111 [id number] [phone] CELIO GARDNER PATIENT ANTHEM FEP PREFERRED PROVIDER ORGANIZAT ION (PPO) FEP BASIC SELF Aug 21, 2013 111 [id number] [phone] GISELL CELIO PATIENT BCBS FEP PREFERRED PROVIDER ORGANIZAT ION (PPO) [id number] Aug 21, 2013 111 [id number] CELIO GARDNER PATIENT BCBS YOLANDA ATTN FEP CLAIMS PREFERRED PROVIDER ORGANIZAT ION (PPO) FEP BASIC IND Aug 21, 2013 111 [id number] [phone] CELIO GARDNER PATIENT BCBS [place] FEP PREFERRED PROVIDER ORGANIZAT ION (PPO) FEP BASIC IND Aug 21, 2013 111 [id number] [phone] CELIO GARDNER PATIENT BCBS [place] FEP PREFERRED PROVIDER ORGANIZAT ION (PPO) BASIC INDIV IDUAL Aug 21, 2013 111 [id number] [phone] CELIO JAMESON PATIENT BCBS OF [place] FEP PREFERRED PROVIDER ORGANIZAT ION (PPO) BASIC SELF Aug 21, 2013 111 [id number] [phone] CELIO GARDNER PATIENT [place] FEP PREFERRED PROVIDER ORGANIZAT ION (PPO) BASIC SELF Aug 21, 2013 111 [id number] [phone] CELIO JAMESON PATIENT [place] FEP DENTAL DENTAL INSURANCE BASIC Aug 21, 2013 DENTAL [id number] [phone] CELIO GARDNER PATIENT [place]BS [place] FEP PREFERRED PROVIDER ORGANIZAT ION (PPO) BASIC SELF Aug 21, 2013 111 [id number] CELIO GARDNER PATIENT [place] FEDERAL PREFERRED PROVIDER ORGANIZAT ION (PPO) BASIC SELF Aug 21, 2013 111 [id number] CELIO GARDNER PATIENT [place] PREFERRED PROVIDER ORGANIZAT ION (PPO) STAND MAGDALENA FAMIL Y Aug 18, 2006 105 [id number] CELIO GARDNER PATIENT [employer] BCBS FEP MEDICARE SECONDARY (NO B EXC) FEHB BASIC MEDSE C Aug 21, 2013 111 [id number] [phone] CELIO GARDNER PATIENT [employer] BCBS FEP PREFERRED PROVIDER ORGANIZAT ION (PPO) FEP STAND MAG[place]ENA Sep 23, 2006 [id number] CELIO GARDNER PATIENT CAR[employer]ARK FEP ([id number]) PRESCRIPT ION FEP RX Aug 21, 2013 [id number] [phone] CELIO GARDNER [employer] FEP [id number] PRESCRIPT ION FEPRX Aug 21, 2013 [id number] [phone] CELIO GARDNER CAR[place]ARK FEP BCBS PRESCRIPT ION CAREM ARK FEPRX Aug 21, 2013 [id number] [phone] CELIO JAMESON FEP RX [id number] PRESCRIPT ION [id number] Aug 21, 2013 [id number] [phone] CELIO GARDNER CAREMARK-F EP BCBS PRESCRIPT ION FEP Aug 21, 2013 [id number] [phone] CELIO GARDNER PATIENT MEDICARE ([facility]) MEDICARE () PART A Nov 16, 2021 PART A [id number] [phone] CELIO GARDNER PATIENT MEDICARE ([facility]) MEDICARE (M) PART B Nov 16, 2021 PART B [id number] [phone] CELIO GARDNER PATIENT MEDICARE ([facility]) MEDICARE (M) PART A Nov 16, 2021 PART A [id number] [phone] CELIO GARDNER PATIENT MEDICARE ([facility]) MEDICARE (M) PART B Nov 16, 2021 PART B [id number] [phone] CELIO GARDNER PATIENT MEDICARE ([facility]) MEDICARE () PART A Nov 16, 2021 PART A [id number] [phone] CELIO GARDNER PATIENT MEDICARE ([facility]) MEDICARE (M) PART B Nov 16, 2021 PART B [id number] [phone] CELIO GARDNER PATIENT MEDICARE ([facility]) MEDICARE () PART A Nov 16, 2021 PART A [id number] [phone] CELIO GARDNER PATIENT MEDICARE ([facility]) MEDICARE () PART B Nov 16, 2021 PART B [id number] CELIO GARDNER PATIENT MEDICARE ([facility]) MEDICARE (M) PART A Nov 16, 2021 PART A [id number] [phone] CELIO GARDNER PATIENT MEDICARE (WNR) MEDICARE (M) PART B Nov 16, 2021 PART B [id number] [phone] CELIO GARDNER PATIENT MEDICARE (WNR) MEDICARE (M) PART A Nov 16, 2021 PART A [id number] [phone] CELIO GARDNER PATIENT MEDICARE (WNR) MEDICARE (M) PART B Nov 16, 2021 PART B [id number] [phone] CELIO GARDNER PATIENT MEDICARE PART D (WNR) MEDICARE (M) PART D Aug 18, 2023 PART D [id number] CELIO GARDNER PATIENT Selected Encounter This section includes the information on record at [place] for the Encounter. Date/Time Encounter Type Encounter Description Reason Provider Source Oct 19, 2024 02:00 PM PSYTX W PT 30 MINUTES [facility] - IND ICD-10-CM F41.9 Anxiety disorder, unspecified TRESA SILVERIO Alcides Encounter Template Text not used by [place] Assessments - Encounter Diagnoses This section includes the primary and secondary diagnoses documented for the Encounter. Date/Time Primary/Secondary Diagnosis Diagnosis Name Provider Source Oct 28, 2024 04:21 PM PRIMARY Anxiety disorder, unspecified TRESA SILVERIO Oct 28, 2024 04:21 PM SECONDARY Major depressv disorder, recurrent, severe w psych symptoms TRESA SILVERIO Plan of Treatment: Future Appointments (+ 6 months) and Future Tests (+/- 45 days) The Plan of Treatment section includes future care activities for the [facility] [place] [facility] This section includes future appointments and future orders which are active, pending or scheduled. Future Appointments This section includes appointments that were scheduled to occur 6 months from the date of the Encounter, up to a maximum of 20 appointments. The data comes from all [place] treatment facilities. Appointment Date/Time Appointment Type Appointme nt Facility Name Nov 02, 2024 03:00 PM AMBULATORY - PSYCHIATRY [facility] Nov 23, 2024 02:00 PM AMBULATORY - PSYCHIATRY [facility] Nov 30, 2024 03:00 PM AMBULATORY - PSYCHIATRY [facility] Dec 14, 2024 01:30 PM AM[facility]UL[facility] [place] [facility] [place] [facility] Dec 14, 2024 02:00 PM AMBULATORY - MEDICINE [facility] [place] [facility] December 28, 2024 02:00 PM AMBULATORY - PSYCHIATRY [facility] January 11, 2025 03:30 PM AMBULATORY - PSYCHIATRY [facility] Feb 01, 2025 02:00 PM AMBULATORY - PSYCHIATRY [facility] Feb 15, 2025 03:00 PM AMBULATORY - PSYCHIATRY [facility] Mar 03, 2025 08:00 AM AMBULATORY - MEDICINE [facility] Apr 05, 2025 03:00 PM AMBULATORY - PSYCHIATRY [facility] Apr 05, 2025 04:00 PM AMBULATORY - PSYCHIATRY [facility] Advance Directives: All historical and current Section Date Range: From patient's date of to the date document was created. This section includes ALL of a patient's completed or amended [place] Advance and Rescinded Directives. The entries below indicate that a directive exists for the patient, but an actual copy is not included with this document. The data comes from all [place] facilities. Date Advance Directives Provider Source Apr 08, 2024 ADVANCE DIRECTIVE LATONYA EWING [place] [facility] Sep 19, 2021 GOALS & PREFERENCES TO INFORM LIFE-SUSTAINING TREATMENT PLAN MARY VIVAS [place] CN[facility] Sep 19, 2020 ADVANCE DIRECTIVE ALANA MONIQUE [facility] TRL WSN [facility] Encounter Notes: All associated encounter notes This section contains the clinical notes associated to the Encounter. Date/Time Encounter Note(s) Provider Source Oct 19, 2024 02:00 PM SOCIAL WORK NOTE: LOCAL TITLE: SOCIAL WORK NOTE STANDARD TITLE: SOCIAL WORK NOTE DATE OF NOTE: OCT 19, 2024@14:00 ENTRY DATE: OCT 19, 2024@14:59:21 AUTHOR: TRESA SILVERIO EXP COSIGNER: URGENCY: STATUS: COMPLETED INFORMED CONSENT REVIEWED: At beginning of session reviewed rights and limits of confidentiality, mandatory reporting situations, duty to warn and protect, Agosto Warning, (if treatment team finds patient to be an acute danger to himself or others, that this information could be relayed to a court of law and presented to a plate grainer), and DOD access for active duty service members. Provided Suicide Prevention Hotline number, and other contact numbers as necessary. 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 SESSION FOCUS: Met with face to face for individual counseling. was accompanied by his Dennise. paced the room and said he was ready to go. Dennise usually has him stay for 20 minutes. She believes it is therapeutic for him to get out and come here for a short time. He is able to answer questions but gets anxious and continues to pace. Dennise has told him, if he is able to get out of the house more during the week, he does not have to come here anymore. So far he has not gotten out. INTERVENTIONS: Psychotherapeutic Interventions: OK; Reflective listening and support ASSESSMENT: BRIEF ASSESSMENT [...] or delusions): Yes 8. Mood was normal: Yes Other Observations: RISK ASSESSMENT: Denies current suicidal ideation PLAN FOR FOLLOW-UP: Next session planned for: 11/23/24 at 2pm /es/ MIL TAM [facility] Signed: 10/19/2024 15:06 TRESA SILVERIO
--- OUTSIDE RECORDS SUMMARY | 2024-11-02 10:00 | XMS_ITS | Encounter Summary ---
Author Name [facility] [facility] [place] [facility] [place] Address [address] [place] [address] Care Team Providers Care Race Engine Builder Name Role Phone IVAN CHERRY Primary Care [...] (PPO) BASIC SELF Aug 21, 2013 [id number] [phone] EricMARIA ELENA CELIO PATIENT ANTHEM [place] FEP PREFERRED PROVIDER ORGANIZAT ION (PPO) FEP BASIC IND Aug 21, 2013 111 [id number] [phone] CELIO GARDNER PATIENT ANTHEM FEP PREFERRED PROVIDER ORGANIZAT ION (PPO) FEP BASIC SELF Aug 21, 2013 111 [id number] [phone] EricHONEYELVIACELIO BARAHONA PATIENT BCBS FEP PREFERRED PROVIDER ORGANIZAT ION (PPO) [id number] Aug 21, 2013 111 [id number] CELIO GARDNER PATIENT BCBS YOLANDA ATTN FEP CLAIMS PREFERRED PROVIDER ORGANIZAT ION (PPO) FEP BASIC IND Aug 21, 2013 111 [id number] [phone] CELIO GARDNER PATIENT [place]BS [place] FEP PREFERRED PROVIDER ORGANIZAT ION (PPO) FEP BASIC IND Aug 21, 2013 111 [id number] [phone] CELIO GARDNER PATIENT BCBS [place] FEP PREFERRED PROVIDER ORGANIZAT ION (PPO) BASIC INDIV IDUAL Aug 21, 2013 111 [id number] [phone] CELIO JAMESON PATIENT [place] FEP PREFERRED PROVIDER ORGANIZAT ION (PPO) BASIC SELF Aug 21, 2013 111 [id number] CELIO GARDNER PATIENT [place] FEP PREFERRED PROVIDER ORGANIZAT ION (PPO) BASIC SELF Aug 21, 2013 [id number] CELIO JAMESON PATIENT [place] FEP DENTAL DENTAL INSURANCE BASIC Aug 21, 2013 DENTAL [id number] [phone] CELIO GARDNER PATIENT [place] FEP PREFERRED PROVIDER ORGANIZAT ION (PPO) BASIC SELF Aug 21, 2013 111 [id number] CELIO GARDNER PATIENT [place] FED[place] PREFERRED PROVIDER ORGANIZAT ION (PPO) BASIC SELF Aug 21, 2013 111 [id number] [phone] CELIO GARDNER PATIENT [place] PREFERRED PROVIDER ORGANIZAT ION (PPO) STAND MAGDALENA FAMIL Y Aug 18, 2006 105 [id number] 27 CELIO GARDNER PATIENT KEHINDEFIRST BCBS FEP MEDICARE SECONDARY (NO B EXC) FEHB BASIC MEDSE C Aug 21, 2013 111 [id number] [phone] CELIO GARDNER PATIENT [employer] BCBS FEP PREFERRED PROVIDER ORGANIZAT ION (PPO) FEP STAND MAG[place]ALENA Sep 23, 2006 [id number] CELIO GARDNER PATIENT CAR[employer]ARK FEP ([id number]) PRESCRIPT ION FEP RX Aug 21, 2013 [id number] [phone] CELIO GARDNER [employer] FEP [id number] PRESCRIPT ION FEPRX Aug 21, 2013 [id number] [phone] CELIO GARDNER [employer] FEP BCBS PRESCRIPT ION CAREM ARK FEPRX Aug 21, 2013 [id number] [phone] CELIO JAMESON FEP RX [id number] PRESCRIPT ION [id number] 500 Aug 21, 2013 [id number] [phone] CELIO GARDNER CAR[employer]ARK-F EP BCBS PRESCRIPT ION FEP Aug 21, 2013 [id number] CELIO GARDNER PATIENT MEDICARE ([facility]) MEDICARE (M) PART A Nov 16, 2021 PART A [id number] [phone] CELIO GARDNER PATIENT MEDICARE ([facility]) MEDICARE (M) PART B Nov 16, 2021 PART B [id number] [phone] CELIO GARDNER PATIENT MEDICARE ([facility]) MEDICARE (M) PART A Nov 16, 2021 PART A [id number] CELIO GARDNER PATIENT MEDICARE ([facility]) MEDICARE (M) PART B Nov 16, 2021 PART B [id number] [phone] CELIO GARDNER PATIENT MEDICARE ([facility]) MEDICARE (M) PART A Nov 16, 2021 PART A [id number] [phone] CELIO GARDNER PATIENT MEDICARE ([facility]) MEDICARE (M) PART B Nov 16, 2021 PART B [id number] [phone] CELIO GARDNER PATIENT MEDICARE ([facility]) MEDICARE (M) PART A Nov 16, 2021 PART A [id number] CELIO GARDNER PATIENT MEDICARE ([facility]) MEDICARE (M) PART B Nov 16, 2021 PART B [id number] CELIO GARDNER PATIENT MEDICARE ([facility]) MEDICARE (M) PART A Nov 16, 2021 PART A [id number] CELIO GARDNER PATIENT MEDICARE (WNR) MEDICARE (M) PART B Nov 16, 2021 PART B [id number] CELIO GARDNER PATIENT MEDICARE (WNR) MEDICARE (M) PART A Nov 16, 2021 PART A [id number] CELIO GARDNER PATIENT MEDICARE (WNR) MEDICARE (M) PART B Nov 16, 2021 PART B [id number] CELIO GARDNER PATIENT MEDICARE PART D (WNR) MEDICARE (M) PART D Aug 18, 2023 PART D [id number] [phone] CELIO GARDNER PATIENT Selected Encounter This section includes the information on record at [place] for the Encounter. Date/Time Encounter Type Encounter Description Reason Provider Source Nov 02, 2024 03:00 PM OFFICE O/P EST MOD 30 MIN [facility] - IND ICD-10-CM F33.3 Major depressv disorder, recurrent, severe w psych symptoms VIGNESH LLAMAS Alcides Encounter Template Text not used by [place] Assessments - Encounter Diagnoses This section includes the primary and secondary diagnoses documented for the Encounter. Date/Time Primary/Secondary Diagnosis Diagnosis Name Provider Source Nov 17, 2024 09:02 AM PRIMARY Major depressv disorder, recurrent, severe w psych symptoms KATIE LLAMAS Plan of Treatment: Future Appointments (+ 6 months) and Future Tests (+/- 45 days) The Plan of Treatment section includes future care activities for the patient from all [place] treatmentfacilities. This section includes future appointments and future orders which are active, pending or scheduled. Future Appointments This section includes appointments that were scheduled to occur 6 months from the date of the Encounter, up to a maximum of 20 appointments. The data comes from all [place] treatment facilities. Appointment Date/Time Appointment Type Appointme nt Facility Name Nov 23, 2024 02:00 PM AMBULATORY - PSYCHIATRY [facility] Nov 30, 2024 03:00 PM AMBULATORY - PSYCHIATRY [facility] Dec 14, 2024 01:30 PM AMBULATORY - REHAB MEDICIN [place] [facility] [place] [facility] Dec 14, 2024 02:00 PM AMBULATORY - MEDICINE [place] [facility] December 28, 2024 02:00 PM AMBULATORY - PSYCHIATRY [facility] January 11, 2025 03:30 PM AMBULATORY - PSYCHIATRY [facility] Feb 01, 2025 02:00 PM AMBULATORY - PSYCHIATRY [facility] Feb 15, 2025 03:00 PM AMBULATORY - PSYCHIATRY [facility] Mar 03, 2025 08:00 AM AMBULATORY - MEDICINE [place] C NTRL [facility] Apr 05, 2025 03:00 PM AMBULATORY - PSYCHIATRY [facility] Apr 05, 2025 04:00 PM AMBULATORY - PSYCHIATRY [facility] Advance Directives: All historical and current Section Date Range: From patient's date of to the date document was created. This section includes ALL of a patient's completed or amended [place] Advance and Rescinded Directives. The entries below indicate that a directive exists for the patient, but an actual copy is not included with this document. The data comes from all [place] facilities. Date Advance Directives Provider Source Apr 08, 2024 ADVANCE DIRECTIVE LATONYA EWING [place] [facility] Sep 19, 2021 GOALS & PREFERENCES TO INFORM LIFE-SUSTAINING TREATMENT PLAN MARY VIVAS [place] CNTRL [place] [facility] Sep 19, 2020 ADVANCE DIRECTIVE ALANA MONIQUE [place] CN [facility] Encounter Notes: All associated encounter notes This section contains the clinical notes associated to the Encounter. Date/Time Encounter Note(s) Provider Source Nov 02, 2024 03:46 PM PSYCHIATRY NOTE: LOCAL TITLE: PSYCHIATRY NOTE STANDARD TITLE: PSYCHIATRY NOTE DATE OF NOTE: NOV 02, 2024@15:46 ENTRY DATE: NOV 02, 2024@15:46:05 AUTHOR: KATIE LLAMAS EXP COSIGNER: URGENCY: STATUS: COMPLETED 30 min for encounter, including chart review, interview, charting chart reviewed Patient seen individually and with his , Dennise Ongoing depressed mood and anxiety - no change today. Although at some points, Dennise feels there may be mosdest improvement in mood/anxiety w cymbalta Affect remains blunted. No PI or delusions presented Denied AHs and VHs. Mildly disorganized, processing of info slow. Again paucity of content noted. Denies SI and violent ideation. Cognitive exam seems to be notable for more memory problems and processing difficulties. MOCA 15/30 in 07/2024 Speech again has relatively long response latency, slow responses, limited content. Sleep is usually good Walking on treadmill regularly, this has increased In general the patient is very reluctant to decrease medication/doses (of klonopin or seroquel), as he feels he gets some partial [...] to try to minimize possible side effects. We decided to increase cymbalta to 40 mg daily Denies current psych med side effects; no daytime sedation; reports med compliance -- patient's manages medications as noted before, no h/o alcohol and drug abuse Patient's organizes his care. She is very supportive. Patient now resides in his own residence, with 24-hour supervision arranged by family wt 200 lb 10/2024 today in clinic; VSS in chart Active problems - Computerized [...] Hypofunction 19. Benign prostatic hyperplasia (SNOMED CT 794652266) 20. Impaired Fasting Glucose 21. Exercise induced bronchospasm (SNOMED CT 957788484) 22. Hyperlipidemia (SNOMED CT 26853206) Active Outpatient Medications (including Supplies): Active Outpatient [...] TO SOFTEN STOOL Indication: FOR CONSTIPATION 5) DULOXETINE HCL 20MG EC CAP TAKE TWO CAPSULES BY MOUTH ONCE ACTIVE DAILY Indication: DEPRESSION/ANXIETY 6) ESCITALOPRAM OXALATE 5MG TAB TAKE ONE-HALF TABLET BY MOUTH HOLD ONCE DAILY FOR MOOD/DEPRESSION Indication: FOR MAJOR DEPRESSIVE DISORDER 7) MELATONIN 5MG CAP/TAB TAKE TWO CAPSULE/TABLET BY MOUTH AT ACTIVE BEDTIME NEEDED Indication: FOR INSOMNIA 8) MEMANTINE HCL 10MG TAB TAKE ONE TABLET BY MOUTH TWICE DAILY ACTIVE Indication: DEMENTIA 9) METOPROLOL SUCCINATE 100MG SA TAB TAKE ONE TABLET BY MOUTH ACTIVE ONCE DAILY FOR BLOOD PRESSURE/HEART Indication: FOR HIGH BLOOD PRESSURE 10) MULTIVIT/OPHTH AREDS2/LUTE/ZEAX CAP/TAB TAKE 1 CAPSULE BY ACTIVE MOUTH TWICE DAILY IN THE MORNING AND EVENING, WITH FOOD Indication: FOR VITAMIN SUPPLEMENTATION 11) POLYETHYLENE GLYCOL 3350 ORAL PWDR TAKE 17 GRAMS(FILL CAP TO ACTIVE 17GM LINE) BY MOUTH ONCE DAILY NEEDED [MIX WITH 4 TO 8OZ. OF BEVERAGE] Indication: FOR CONSTIPATION 12) QUETIAPINE FUMARATE 25MG TAB TAKE ONE-HALF TABLET BY MOUTH ACTIVE ONCE DAILY AND TAKE TWO TABLETS AT BEDTIME Indication: FOR MOOD 13) RIVASTIGMINE TARTRATE 3MG CAP TAKE ONE CAPSULE BY MOUTH ACTIVE TWICE DAILY Indication: FOR DEMENTIA 14) SIMVASTATIN 40MG TAB TAKE ONE TABLET BY MOUTH AT BEDTIME FOR ACTIVE CHOLESTEROL Indication: FOR HIGH CHOLESTEROL 15) TABLET CUTTER (PILL SPLITTER) USE CUTTER DIRECTED ONCE ACTIVE DAILY TO SPLIT TABLETS 16) TAMSULOSIN HCL 0.4MG CAP TAKE TWO CAPSULES BY MOUTH AT ACTIVE (S) BEDTIME Indication: FOR ENLARGED PROSTATE 17) TRAZODONE HCL 100MG TAB TAKE TWO TABLETS [...] dose doxepin was not helpful for insomnia [place] -- not tolerate due to confusion wellbutrin [...] RIVASTIGMINE 3 MG TWICE DAILY, for dementia, well-tolerated, although we may consider taper of this at some point to see if adding benefit after discussion last appt and today, we decided INCREASE OF DULOXETINE TO 40 MG DAILY FOR DEPRESSION AND ANXIETY -- and titrate again next visit if indicated. pt off lexapro, as planned Note that we considered nortriptyline trial, but [...] drug interactions, reviewed w pt and his again today - they will continue to monitor for sedation and gait stability and increased confusion, which are the side effects we focus on the most -- so far, again the patient tolerates meds fairly well, although we are trying dose reduction in the sedating meds when possible as noted in previous notes. Benefits outweigh [...] glucose Patient has transferred primary care to [facility] -- Kathy Cherry as primary care in [place] -- I have reviewed with Kathy Vieyra re pt previously See prior notes for discussions of previous neurologic evals of [place] -- at [place] and [facility], suggesting Lewy Body Dementia. See Dr. Johnson's notes. But more recent evaluation by neurologist at [facility] may suggest other form of dementia. [...] greatly appreciate his input. neurologist, Osman Ma, [facility] [phone] As noted before, note that the patient had a brain JEZ SPECT study at [facility]--10/31/2023 and it showed absence of activity [...] previously, pt had psychiatry consult 01/14 at [facility] and his sent the assessment [...] this [facility] ([facility]) and dispensed from another [place] or DoD facility (remote) as well as [...] /es/ KATIE LLAMAS MD STAFF PSYCHIATRIST Signed: 11/02/2024 16:07 KATIE LLAMAS
--- OUTSIDE RECORDS SUMMARY | 2024-11-23 09:00 | XMS_ITS | Encounter Summary ---
Author Name [facility] [facility] [place] [facility] [place] Address [address] [place] [address] Care Team Providers Care External Grinder Tool Name Role Phone IVAN VELAZQUEZ Primary Care [...] (PPO) BASIC SELF Aug 21, 2013 111 [id number] [phone] GISELLCELIO PATIENT ANTHEM [place] FEP PREFERRED PROVIDER ORGANIZAT ION (PPO) FEP BASIC IND Aug 21, 2013 111 [id number] [phone] CELIO AGRDNER PATIENT ANTHEM FEP PREFERRED PROVIDER ORGANIZAT ION (PPO) FEP BASIC SELF Aug 21, 2013 111 [id number] [phone] GISELL CELIO PATIENT BCBS FEP PREFERRED PROVIDER ORGANIZAT ION (PPO) [id number] Aug 21, 2013 111 [id number] CELIO GARDNER PATIENT BCBS YOLANDA ATTN FEP CLAIMS PREFERRED PROVIDER ORGANIZAT ION (PPO) FEP BASIC IND Aug 21, 2013 111 [id number] [phone] CELIO GARDNER PATIENT BCBS [place] FEP PREFERRED PROVIDER ORGANIZAT ION (PPO) FEP BASIC IND Aug 21, 2013 111 [id number] [phone] CELIO GARDNER PATIENT BCBS [place] FEP PREFERRED PROVIDER ORGANIZAT ION (PPO) BASIC INDIV IDUAL Aug 21, 2013 111 [id number] [phone] CELIO JAMESON PATIENT BCBS OF [place] FEP PREFERRED PROVIDER ORGANIZAT ION (PPO) BASIC SELF Aug 21, 2013 111 [id number] [phone] CELIO GARDNER PATIENT [place] FEP PREFERRED PROVIDER ORGANIZAT ION (PPO) BASIC SELF Aug 21, 2013 111 [id number] CELIO JAMESON PATIENT [place] FEP DENTAL DENTAL INSURANCE BASIC Aug 21, 2013 DENTAL [id number] 27 CELIO GARDNER PATIENT [place]BS [place] FEP PREFERRED PROVIDER ORGANIZAT ION (PPO) BASIC SELF Aug 21, 2013 111 [id number] CELIO GARDNER PATIENT [place] FEDERAL PREFERRED PROVIDER ORGANIZAT ION (PPO) BASIC SELF Aug 21, 2013 111 [id number] [phone] CELIO GARDNER PATIENT [place] FED[place] PREFERRED PROVIDER ORGANIZAT ION (PPO) STAND MAGDALENA FAMIL Y Aug 18, 2006 105 [id number] [phone] CELIO GARDNER PATIENT CAREFIRST BCBS FEP MEDICARE SECONDARY (NO B EXC) FEHB BASIC MEDSE C Aug 21, 2013 111 [id number] [phone] CELIO GARDNER PATIENT CAREFIRST BCBS FEP PREFERRED PROVIDER ORGANIZAT ION (PPO) FEP STAND [place] Sep 23, 2006 [id number] CELIO GARDNER PATIENT CAREMARK FEP ([id number]) PRESCRIPT ION FEP RX Aug 21, 2013 [id number] [phone] CELIO GARDNER CAR[place]ARK FEP [id number] PRESCRIPT ION FEPRX Aug 21, 2013 [id number] [phone] CELIO GARDNER CAREMARK FEP BCBS PRESCRIPT ION CAREM ARK FEPRX Aug 21, 2013 [id number] [phone] CELIO JAMESON FEP RX [id number] PRESCRIPT ION [id number] Aug 21, 2013 [id number] [phone] CELIO GARDNER CAREMARK-F EP BCBS PRESCRIPT ION FEP Aug 21, 2013 [id number] CELIO GARDNER PATIENT MEDICARE ([facility]) MEDICARE () PART A Nov 16, 2021 PART A [id number] [phone] CELIO GARDNER PATIENT MEDICARE ([facility]) MEDICARE (M) PART B Nov 16, 2021 PART B [id number] [phone] CELIO GARDNER PATIENT MEDICARE ([facility]) MEDICARE (M) PART A Nov 16, 2021 PART A [id number] [phone] CELIO GARDNER PATIENT MEDICARE ([facility]) MEDICARE (M) PART B Nov 16, 2021 PART B [id number] [phone] CELIO GARDNER PATIENT MEDICARE ([facility]) MEDICARE (M) PART A Nov 16, 2021 PART A [id number] [phone] CELIO GARDNER PATIENT MEDICARE ([facility]) MEDICARE (M) PART B Nov 16, 2021 PART B [id number] [phone] CELIO GARDNER PATIENT MEDICARE ([facility]) MEDICARE (M) PART A Nov 16, 2021 PART A [id number] CELIO GARDNER PATIENT MEDICARE ([facility]) MEDICARE (M) PART B Nov 16, 2021 PART B [id number] [phone] CELIO GARDNER PATIENT MEDICARE ([facility]) MEDICARE (M) PART A Nov 16, 2021 PART A [id number] [phone] CELIO GARDNER PATIENT MEDICARE (WNR) MEDICARE (M) PART B Nov 16, 2021 PART B [id number] [phone] CELIO GARDNER PATIENT MEDICARE (WNR) MEDICARE (M) PART A Nov 16, 2021 PART A [id number] CELIO GARDNER PATIENT MEDICARE (WNR) MEDICARE (M) PART B Nov 16, 2021 PART B [id number] [phone] CELIO GARDNER PATIENT MEDICARE PART D (WNR) MEDICARE (M) PART D Aug 18, 2023 PART D [id number] CELIO GARDNER PATIENT Selected Encounter This section includes the information on record at [place] for the Encounter. Date/Time Encounter Type Encounter Description Reason Provider Source Nov 23, 2024 02:00 PM PSYTX W PT 30 MINUTES [facility] - IND ICD-10-CM F41.9 Anxiety disorder, unspecified TRESA SILVERIO Alcides Encounter Template Text not used by [place] Assessments - Encounter Diagnoses This section includes the primary and secondary diagnoses documented for the Encounter. Date/Time Primary/Secondary Diagnosis Diagnosis Name Provider Source January 13, 2025 01:12 PM PRIMARY Anxiety disorder, unspecified TRESA SILVERIO January 13, 2025 01:12 PM SECONDARY Major depressv disorder, recurrent, severe [...] Appointment Type Appointme nt Facility Name Nov 30, 2024 03:00 PM AMBULATORY - PSYCHIATRY [facility] Dec 14, 2024 01:30 PM AMBULATORY - [facility]IC[facility] [place] [facility] Dec 14, 2024 02:00 PM AMBULATORY - MEDICINE [place] [facility] [place] [facility] December 28, 2024 02:00 PM AMBULATORY - PSYCHIATRY [facility] January 11, 2025 03:30 PM AMBULATORY - PSYCHIATRY [facility] Feb 01, 2025 02:00 PM AMBULATORY - PSYCHIATRY [facility] Feb 15, 2025 03:00 PM AMBULATORY - PSYCHIATRY [facility] Mar 03, 2025 08:00 AM AMBULATORY - MEDICINE [place] C [facility] Apr 05, 2025 03:00 PM AMBULATORY - PSYCHIATRY [facility] Apr 05, 2025 04:00 PM AMBULATORY - PSYCHIATRY [facility] May 24, 2025 03:30 PM AMBULATORY PSYCHIATRY [facility] Advance Directives: All historical and current [...] ADVANCE DIRECTIVE LATONYA EWING CO CNT RL TRN [facility] Sep 19, 2021 GOALS & PREFERENCES TO INFORM LIFE-SUSTAINING TREATMENT PLAN [facility] VIVAS [facility] Sep 19, 2020 ADVANCE DIRECTIVE ALANA MONIQUE CO [facility] Encounter Notes: All associated encounter notes This section contains the clinical notes associated to the Encounter. Date/Time Encounter Note(s) Provider Source Nov 23, 2024 02:00 PM SOCIAL WORK NOTE: LOCAL TITLE: SOCIAL WORK NOTE STANDARD TITLE: SOCIAL WORK NOTE DATE OF NOTE: NOV 23, 2024@14:00 ENTRY DATE: NOV 23, 2024@14:54:23 AUTHOR: TRESA SILVERIO COSIGNER: URGENCY: STATUS: COMPLETED INFORMED CONSENT REVIEWED: At beginning of session reviewed rights and limits of confidentiality, mandatory reporting situations, duty to warn and protect, Agosto Warning, (if treatment team finds patient to be an acute danger to himself or others, that this information could be relayed to a court of law and presented to a farm advisor), and DOD access for active duty service members. Provided Suicide Prevention Hotline number, and other contact numbers as necessary. 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 SESSION FOCUS: Met with Timnath face to face for individual counseling. Veterans Dennise accompanied him. Timnath was restless which is his baseline. He began to ask to leave as soon as arriving. We spoke about him getting out of the house more to get sunshine and fresh air. Timnath declined stating don't pressure me. Dennise stated she needs to get out for her own well being and would like Timnath to joing her. Again he stated don't pressure me. is very supportive, patient and kind. INTERVENTIONS: Psychotherapeutic Interventions: CA; Reflective listening and support ASSESSMENT: BRIEF ASSESSMENT OF MENTAL STATUS: 1. Appearance (grooming, attire, apparent age) within normal limits: Yes 2. Thought content was organized and goal directed: Yes 3. Speech was coherent and unimpaired: Yes 4. Affect was appropriate and unremarkable: flat 5. Demeanor was calm, with no signs of agitation or restlessness: Restless 6. Sleep was largely unimpaired and restful: Yes 7. No evidence of psychosis (hallucinations or delusions): Yes 8. Mood was normal: Yes Other Observations: RISK ASSESSMENT: Denies current suicidal/homicidal ideation PLAN FOR FOLLOW-UP: Next session planned for: 12/28/24 at 2pm /es/ TRESA SILVERIO [employer] TECHNICAL MANAGER Associate Store Manager Mental Health Signed: 11/23/2024 15:00 TRESA SILVERIO
--- OUTSIDE RECORDS SUMMARY | 2024-11-30 10:00 | XMS_ITS | Encounter Summary ---
Author Name [facility] [facility] [place] [facility] [place] Address [address] [place] [address] Care Team Providers Care Phys Assistant Name Role Phone IVAN CHERRY Primary Care [...] (PPO) BASIC SELF Aug 21, 2013 111 [id number] [phone] EricMARIA ELENA CELIO PATIENT ANTHEM [place] FEP PREFERRED PROVIDER ORGANIZAT ION (PPO) FEP BASIC IND Aug 21, 2013 111 [id number] [phone] CELIO GARDNER PATIENT ANTHEM FEP PREFERRED PROVIDER ORGANIZAT ION (PPO) FEP BASIC SELF Aug 21, 2013 111 [id number] [phone] EricHONEYELVIACELIO BARAHONA PATIENT BCBS FEP PREFERRED PROVIDER ORGANIZAT ION (PPO) [id number] Aug 21, 2013 111 [id number] CELIO GARDNER PATIENT BCBS YOLANDA ATTN FEP CLAIMS PREFERRED PROVIDER ORGANIZAT ION (PPO) FEP BASIC IND Aug 21, 2013 111 [id number] [phone] CELIO GADRNER PATIENT [place]BS [place] FEP PREFERRED PROVIDER ORGANIZAT ION (PPO) FEP BASIC IND Aug 21, 2013 111 [id number] [phone] CELIO GARDNER PATIENT BCBS [place] FEP PREFERRED PROVIDER ORGANIZAT ION (PPO) BASIC INDIV IDUAL Aug 21, 2013 111 [id number] [phone] CELIO JAMESON PATIENT [place]BS [place] FEP PREFERRED PROVIDER ORGANIZAT ION (PPO) BASIC SELF Aug 21, 2013 111 [id number] CELIO GARDNER PATIENT [place] FEP PREFERRED PROVIDER ORGANIZAT ION (PPO) BASIC SELF Aug 21, 2013 111 [id number] [phone] CELIO JAMESON PATIENT [place] FEP DENTAL DENTAL INSURANCE BASIC Aug 21, 2013 DENTAL [id number] [phone] CELIO GARDNER PATIENT [place] FEP PREFERRED PROVIDER ORGANIZAT ION (PPO) BASIC SELF Aug 21, 2013 111 [id number] 27 CELIO GARDNER PATIENT [place] FED[place] PREFERRED PROVIDER ORGANIZAT ION (PPO) BASIC SELF Aug 21, 2013 111 [id number] 27 CELIO GARDNER PATIENT [place] PREFERRED PROVIDER ORGANIZAT ION (PPO) STAND MAGDALENA FAMIL Y Aug 18, 2006 105 [id number] 27 CELIO GARDNER PATIENT KEHINDEFIRST BCBS FEP MEDICARE SECONDARY (NO B EXC) FEHB BASIC MEDSE C Aug 21, 2013 111 [id number] [phone] CELIO GARDNER PATIENT CAREFIRST BCBS FEP PREFERRED PROVIDER ORGANIZAT ION (PPO) FEP STAND [place] Sep 23, 2006 [id number] CELIO GARDNER PATIENT CAREMARK FEP ([id number]) PRESCRIPT ION FEP RX Aug 21, 2013 [id number] [phone] CELIO GARDNER CAREMARK FEP [id number] PRESCRIPT ION FEPRX Aug 21, 2013 [id number] [phone] CELIO GARDNER CAREMARK FEP BCBS PRESCRIPT ION CAREAde ARK FEPRX Aug 21, 2013 [id number] [phone] CELIO JAMESON FEP RX [id number] PRESCRIPT ION [id number] Aug 21, 2013 [id number] CELIO GARDNER CAREMARK-F EP BCBS PRESCRIPT ION FEP Aug 21, 2013 [id number] [phone] CELIO GARDNER PATIENT MEDICARE ([facility]) MEDICARE () PART A Nov 16, 2021 PART A [id number] [phone] CELIO GARDNER PATIENT MEDICARE ([facility]) MEDICARE (M) PART B Nov 16, 2021 PART B [id number] CELIO GARDNER PATIENT MEDICARE ([facility]) MEDICARE (M) PART A Nov 16, 2021 PART A [id number] [phone] CELIO GARDNER PATIENT MEDICARE ([facility]) MEDICARE (M) PART B Nov 16, 2021 PART B [id number] [phone] CELIO GARDNER PATIENT MEDICARE ([facility]) MEDICARE () PART A Nov 16, 2021 PART A [id number] CELIO GARDNER PATIENT MEDICARE ([facility]) MEDICARE (M) PART B Nov 16, 2021 PART B [id number] CELIO GARDNER PATIENT MEDICARE ([facility]) MEDICARE (M) PART A Nov 16, 2021 PART A [id number] CELIO GARDNER PATIENT MEDICARE ([facility]) MEDICARE (M) PART B Nov 16, 2021 PART B [id number] [phone] CELIO GARDNER PATIENT MEDICARE ([facility]) MEDICARE (M) PART A Nov 16, 2021 PART A [id number] [phone] CELIO GARDNER PATIENT MEDICARE (WNR) MEDICARE (M) PART A Nov 16, 2021 PART A [id number] CELIO GARDNER PATIENT MEDICARE (WNR) MEDICARE (M) PART B Nov 16, 2021 PART B [id number] [phone] CELIO GARDNER PATIENT MEDICARE (WNR) MEDICARE (M) PART B Nov 16, 2021 PART B [id number] [phone] CELIO AGRDNER PATIENT MEDICARE PART D (WNR) MEDICARE (M) PART D Aug 18, 2023 PART D [id number] CELIO GARDNER PATIENT Selected Encounter This section includes the information on record at CT for the Encounter. Date/Time Encounter Type Encounter Description Reason Provider Source Nov 30, 2024 03:00 PM OFFICE O/P EST MOD 30 MIN [facility] - IND ICD-10-CM F33.3 Major depressv disorder, recurrent, severe w psych symptoms VIGNESH LLAMAS Alcides Encounter Template Text not used by CT Assessments - Encounter Diagnoses This section includes the primary and secondary diagnoses documented for the Encounter. Date/Time Primary/Secondary Diagnosis Diagnosis Name Provider Source Jan 31, 2025 07:36 AM PRIMARY Major depressv disorder, recurrent, severe w psych symptoms KATIE LLAMAS Plan of Treatment: Future Appointments (+ 6 months) and Future Tests (+/- 45 days) The Plan of Treatment section includes future care activities for the patient from all CT treatmentfacilities. This section includes future appointments and future orders which are active, pending or scheduled. Future Appointments This section includes appointments that were scheduled to occur 6 months from the date of the Encounter, up to a maximum of 20 appointments. The data comes from all CT treatment facilities. Appointment Date/Time Appointment Type Appointme nt Facility Name Dec 14, 2024 01:30 PM AMBULATORY - REHAB MEDICIN E [facility] [place] Dec 14, 2024 02:00 PM AMBULATORY - MEDICINE CT C NTRL VICKIE KEYESKALIN [facility] December 28, 2024 02:00 PM AMBULATORY - PSYCHIATRY [facility] January 11, 2025 03:30 PM AMBULATORY - PSYCHIATRY [facility] Feb 01, 2025 02:00 PM AMBULATORY - PSYCHIATRY [facility] Feb 15, 2025 03:00 PM AMBULATORY - PSYCHIATRY [facility] Mar 03, 2025 08:00 AM [facility] Apr 05, 2025 03:00 PM AMBULATORY - PSYCHIATRY [facility] Apr 05, 2025 04:00 PM AMBULATORY - PSYCHIATRY [facility] May 24, 2025 03:30 PM AMBULATORY - PSYCHIATRY [facility] Advance Directives: All historical and current Section Date Range: From patient's date of to the date document was created. This section includes ALL of a patient's completed or amended CT Advance and Rescinded Directives. The entries below indicate that a directive exists for the patient, but an actual copy is not included with this document. The data comes from all CT facilities. Date Advance Directives Provider Source Apr 08, 2024 ADVANCE DIRECT[address] EW[address] [facility] Sep 19, 2021 GOALS & PREFERENCES TO INFORM LIFE-SUSTAINING TREATMENT PLAN MARY VIVAS [facility] Sep 19, 2020 ADVANCE DIRECT[address] ALANA MONIQUE [address] CN [facility] Encounter Notes: All associated encounter notes This section contains the clinical notes associated to the Encounter. Date/Time Encounter Note(s) Provider Source Nov 30, 2024 02:54 PM PSYCHIATRY NOTE: LOCAL TITLE: PSYCHIATRY NOTE STANDARD TITLE: PSYCHIATRY NOTE DATE OF NOTE: NOV 30, 2024@14:54 ENTRY DATE: NOV 30, 2024@14:54:32 AUTHOR: KATIE LLAMAS EXP COSIGNER: URGENCY: STATUS: COMPLETED PSYCHIATRY NOTE Has ADDENDA 30 min for encounter, including chart review, interview, charting chart reviewed Patient seen with his , Dennise Ongoing depressed mood and anxiety - no change today. Affect remains blunted. No PI or delusions [...] is usually good Walking on treadmill regularly, again this has increased Dennise reports pt sometimes better in the evenings w less anxiety In general the patient is very reluctant [...] to try to minimize possible side effects. Dennise has noted pt to be more confused at times since increase in duloxetine to 40 mg daily - today we decided to decrease back to 20 mg daily. Denies current psych med side effects; no daytime sedation; reports med compliance -- patient's manages medications as noted before, no h/o alcohol and drug abuse Patient's organizes his care. She is very supportive. Patient now resides in his own residence, with 24-hour supervision arranged by family wt 222 lb 11/2024 ; VS ok in chart Active problems - Computerized Problem [...] Hypofunction 19. Benign prostatic hyperplasia (SNOMED CT 860440067) 20. Impaired Fasting Glucose 21. Exercise induced bronchospasm (SNOMED CT 268778824) 22. Hyperlipidemia (SNOMED CT 38462147) Active Outpatient Medications (including Supplies): Active Outpatient [...] MOUTH ONCE ACTIVE DAILY Indication: DEPRESSION/ANXIETY 6) MELATONIN 5MG CAP/TAB TAKE TWO CAPSULE/TABLET [...] TWO TABLETS AT BEDTIME Indication: FOR MOOD 12) [...] dose doxepin was not helpful for insomnia [place] -- not tolerate due to confusion wellbutrin [...] not tolerated depakote -- no clear benefit lexapro -- not enough benefit TMS 2019 -- not help ECT [...] reviewed w patient/ as a precaution. I have advised patient to talk with family/aides if there are any concerns about safety. As noted previously, given the patient's cognitive decline, the important part of pt's safety is supervision by /family/assistants therapy with Candelaria Luna as noted before, neuropsych testing -- see results in [facility] CONTINUE NAMENDA 10 MG TWICE DAILY for dementia. CONTINUE RIVASTIGMINE 3 MG TWICE DAILY, for dementia, well-tolerated, and pt had taken lower dose for about a wk with increased cognitive problems noted by , the this dose resumed after discussion , we decided TO DECREASE DULOXETINE TO 20 MG DAILY FOR DEPRESSION AND ANXIETY -- pt may have more confusion at 40 mg dose. Patient may have benefited from 20 mg dose at least partially Note that we considered nortriptyline trial, but [...] 12.5 MG AT AND 50 MG QHS. If possible the daytime dose will be discontinued, but no change in order for now. Continue gradual reducation as tolerated. Quetiapine may [...] glucose Patient has transferred primary care to [facility] -- Kathy Cherry as primary care [place] -- I have reviewed with Kathy Vieyra re pt previously See prior notes for discussions of previous neurologic evals of pt -- at [place] and [facility], suggesting Lewy Body Dementia. See Dr. Johnson's notes. But more recent evaluation by neurologist at [facility] may suggest other form of dementia. [...] greatly appreciate his input. neurologist, Osman Ma, [facility] [phone] As noted before, note that the patient had a brain JEZ SPECT study at [facility]--10/31/2023, see my 11/02/24 note for discussion As noted previously, pt had psychiatry consult 01/14 at [facility] and his sent the assessment [...] whether with a VA or non-VA provider. /erasto/ KATIE LLAMAS MD STAFF PSYCHIATRIST Signed: 11/30/2024 18:26 12/15/2024 ADDENDUM STATUS: COMPLETED I spoke with Dennise, returning her secure message, and pt has had more agitation/anxiety as we have tapered down the quetiapine, after discussion we decided to increase again at least temporarily. Increase quetiapine to 25 mg bid (in am and midday) and 50 mg QHS, but the total daily dose of 100 mg can be adjusted to different timing if more helpful. Dennise will monitor pt for side effects and call clinic if needed . /erasto/ KATIE LLAMAS MD STAFF PSYCHIATRIST Signed: 12/15/2024 09:15 12/30/2024 ADDENDUM STATUS: COMPLETED I spoke with the patient's today, the patient has not done as well with the current regimen as he did with the Lexapro. Thus we decided to discontinue the Cymbalta which is already low-dose, and start the patient back on Lexapro 2.5 mg daily for now. The patient will see me next week for further review. Patient will also see his neurologist next week. /erasto/ KATIE LLAMAS MD STAFF PSYCHIATRIST Signed: 12/30/2024 09:07 KATIE LLAMAS
--- OUTSIDE RECORDS SUMMARY | 2024-12-14 08:30 | XMS_ITS ---
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 Name Role Phone IVAN VELAZQUEZ Primary Care Provider Unav ailable GILDARDO, LATONYA Unavailable Unavailable ALYCIA RHODES Unavailable Unavailable MENDEZ RAMAN Unavailable Unavailable CHAPTOMY, LETA Unavailable Unavailable SADIE, ADAN Unavailable Unavailable DIVINE, EWA Unavailable Unavailable [...] (PPO) BASIC SELF Aug 21, 2013 111 [id number] [phone] GISELL CELIO PATIENT ANTHEM [place] FEP PREFERRED PROVIDER ORGANIZAT ION (PPO) FEP BASIC IND Aug 21, 2013 111 [id number] [phone] CELIO GARDNER PATIENT ANTHEM FEP PREFERRED PROVIDER ORGANIZAT ION (PPO) FEP BASIC SELF Aug 21, 2013 111 [id number] [phone] ErciJuan DanielCELIO GAN PATIENT BCBS FEP PREFERRED PROVIDER ORGANIZAT ION (PPO) [id number] Aug 21, 2013 111 [id number] CELIO GARDNER PATIENT BCBS YOLANDA ATTN FEP CLAIMS PREFERRED PROVIDER ORGANIZAT ION (PPO) FEP BASIC IND Aug 21, 2013 111 [id number] [phone] CELIO GARDNER PATIENT BCBS [place] FEP PREFERRED PROVIDER ORGANIZAT ION (PPO) FEP BASIC IND Aug 21, 2013 111 [id number] [phone] CELIO GARDNER PATIENT [place]BS [place] FEP PREFERRED PROVIDER ORGANIZAT ION (PPO) BASIC INDIV IDUAL Aug 21, 2013 111 [id number] [phone] CELIO JAMESON PATIENT BCBS OF [place] FEP PREFERRED PROVIDER ORGANIZAT ION (PPO) BASIC SELF Aug 21, 2013 111 [id number] CELIO GARDNER PATIENT [place] FEP PREFERRED PROVIDER ORGANIZAT ION (PPO) BASIC SELF Aug 21, 2013 111 [id number] CELIO JAMESON PATIENT [place] FEP DENTAL DENTAL INSURANCE BASIC Aug 21, 2013 DENTAL [id number] CELIO GARDNER PATIENT [place] FEP PREFERRED PROVIDER ORGANIZAT ION (PPO) BASIC SELF Aug 21, 2013 111 [id number] CELIO GARDNER PATIENT [place] FEDERAL PREFERRED PROVIDER ORGANIZAT ION (PPO) BASIC SELF Aug 21, 2013 111 [id number] CELIO [place]ARDNER PATIENT [place] PREFERRED PROVIDER ORGANIZAT ION (PPO) STAND [facility] Y Aug 18, 2006 105 [id number] CELIO GARDNER PATIENT [employer] BCBS FEP MEDICARE SECONDARY (NO B EXC) FEHB BASIC MEDSE C Aug 21, 2013 111 [id number] [phone] CELIO GARDNER PATIENT [employer] BCBS FEP PREFERRED PROVIDER ORGANIZAT ION (PPO) FEP STAND [place] Sep 23, 2006 [id number] CELIO GARDNER PATIENT [employer] FEP ([id number]) PRESCRIPT ION FEP RX Aug 21, 2013 [id number] [phone] CELIO GARDNER [place] FEP [id number] PRESCRIPT ION FEPRX Aug 21, 2013 [id number] [phone] CELIO GARDNER [place] FEP BCBS PRESCRIPT ION CAREM ARK FEPRX Aug 21, 2013 [id number] CELIO JAMESON [place]ELIJAH FEP RX [id number] PRESCRIPT ION [id number] Aug 21, 2013 [id number] CELIO GARDNER [employer]-F EP BCBS PRESCRIPT ION FEP Aug 21, 2013 [id number] CELIO GARDNER PATIENT MEDICARE (BANNER) MEDICARE () PART A Nov 16, 2021 PART A [id number] [phone] CELIO GARDNER PATIENT MEDICARE (WN) MEDICARE () PART B Nov 16, 2021 PART B [id number] [phone] CELIO GARDNER PATIENT MEDICARE (WN) MEDICARE () PART A Nov 16, 2021 PART A [id number] [phone] CELIO GARDNER PATIENT MEDICARE (BANNER) MEDICARE () PART B Nov 16, 2021 PART B [id number] [phone] CELIO GARDNER PATIENT MEDICARE (BANNER) MEDICARE () PART A Nov 16, 2021 PART A [id number] CELIO GARDNER PATIENT MEDICARE (WNR) MEDICARE () PART B Nov 16, 2021 PART B [id number] CELIO GARDNER PATIENT MEDICARE (WN) MEDICARE () PART A Nov 16, 2021 PART A [id number] CELIO GARDNER PATIENT MEDICARE (WN) MEDICARE () PART B Nov 16, 2021 PART B [id number] CELIO GARDNER PATIENT MEDICARE (WNR) MEDICARE () PART A Nov 16, 2021 PART A [id number] [phone] CELIO GARDNER PATIENT MEDICARE (WNR) MEDICARE (M) PART B Nov 16, 2021 PART B [id number] CELIO GARDNER PATIENT MEDICARE (WNR) MEDICARE (M) PART A Nov 16, 2021 PART A [id number] CELIO GARDNER PATIENT MEDICARE (WNR) MEDICARE (M) PART B Nov 16, 2021 PART B [id number] [phone] CELIO GARDNER PATIENT MEDICARE PART D (WNR) MEDICARE (M) PART D Aug 18, 2023 PART D [id number] [phone] CELIO GARDNER PATIENT Selected Encounter This section includes the information on record at ME for the Encounter. Date/Time Encounter Type Encounter Description Reason Provider Source Dec 14, 2024 01:30 PM HEARING AID REPAIR/MODIFYING AUDIOLOGY ICD-10-CM Z46.1 Encounter for fitting and adjustment of hearing aid MANUELITO JACKSON Alcides Encounter Template Text not used by ME Assessments - Encounter Diagnoses This section includes the primary and secondary diagnoses documented for the Encounter. Date/Time Primary/Secondary Diagnosis Diagnosis Name Provider Source Dec 14, 2024 01:56 PM PRIMARY Encounter for fitting and adjustment of hearing aid JOE BLOCK [facility] Dec 14, 2024 01:56 PM SECONDARY Sensorineural hearing loss, bilateral JOE BLOCK [facility] Plan of Treatment: Future Appointments (+ 6 months) and Future Tests (+/- 45 days) The Plan of Treatment section includes future care activities for the [facility] This section includes future appointments and future orders which are active, pending or scheduled. Future Appointments This section includes appointments that were scheduled to occur 6 months from the date of the Encounter, up to a maximum of 20 appointments. The data comes from all [place] treatment facilities. Appointment Date/Time Appointment Type Appointme Facility Name December 28, 2024 02:00 PM AMBULATORY - PSYCHIATRY [facility] January 11, 2025 03:30 PM AMBULATORY - PSYCHIATRY [facility] Feb 01, 2025 02:00 PM AMBULATORY - PSYCHIATRY [facility] Feb 15, 2025 03:00 PM AMBULATORY - PSYCHIATRY [facility] Mar 03, 2025 08:00 AM AMBULATORY - MEDICINE [facility] [place] [facility] Apr 05, 2025 03:00 PM AMBULATORY - PSYCHIATRY [facility] Apr 05, 2025 04:00 PM AMBULATORY - PSYCHIATRY [facility] May 24, 2025 03:30 PM AMBULATORY - PSYCHIATRY [facility] Social History: Smoking Status (Most current) and Tobacco Use (All prior to encounter date) This section includes the most current, and the historical, smoking and tobacco- related health factors from the ME facility where the Encounter took place. Current Smoking Status This section includes the most current smoking, or tobacco-related health factor, from the ME facility where the Encounter took place. Date/Time Current Smoking Status Comment [facility] Sep 17, 2021 11:00 AM VA-TOBACCO FORMER USER [place] [facility] Tobacco Use History This section includes a history of the smoking, or tobacco-related health factors, that were collected on or before the date of the Encounter. The data comes from the ME facility where the Encounter took place. Date/Time Smoking Status/Tobac co Use Comment Facility Sep 17, 2021 11:00 AM VA-TOBACCO QUIT 15 YRS OR MORE [facility] [place] [facility] Mar 01, 2020 01:30 PM VA-TOBACCO FORMER USER [facility] [place] [facility] Mar 01, 2020 01:30 PM VA-TOBACCO QUIT 15 YRS OR MORE [facility] [place] [facility] Jan 20, 2019 09:37 AM VA-TOBACCO NEVER USED [facility] [place] [facility] Dec 11, 2017 05:17 PM QUIT TOBACCO USE > 7 YEARS AGO [facility] [place] [facility] Jan 20, 2017 03:12 PM QUIT TOBACCO USE > 7 YEARS AGO [facility] [place] [facility] January 09, 2016 08:48 AM QUIT TOBACCO USE > 7 YEARS AGO . [facility] [place] [facility] Jun 09, 2006 05:45 PM LIFETIME NON-TOBACCO USER [facility] [place] [facility] Aug 22, 2003 03:27 PM HISTORY OF SMOKING [facility] [place] [facility] Aug 22, 2003 03:27 PM QUIT TOBACCO USE IN PAST YEAR [facility] Jun 24, 2003 12:01 PM CURRENT SMOKER about 1 week/so [facility] Advance Directives: All historical and current Section Date Range: From patient's date of to the date document was created. This section includes ALL of a patient's completed or amended [place] Advance and Rescinded Directives. The entries below indicate that a directive exists for the patient, but an actual copy is not included with this document. The data comes from all [place] facilities. Date Advance Directives Provider Source Apr 08, 2024 ADVANCE DIRECTIVE LATONYA EWING [facility] Sep 19, 2021 GOALS & PREFERENCES TO INFORM LIFE-SUSTAINING TREATMENT PLAN MARY VIVAS [facility] Sep 19, 2020 ADVANCE DIRECTIVE ALANA MONIQUE [facility] Encounter Notes: All associated encounter notes This section contains the clinical notes associated to the Encounter. 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 The presented today requesting counseling on his hearing aids. The Veterans noted they don't seem to be working properly. Hearing aids: Oticon Real 1 miniRITEs Serial Numbers: [id number] Battery size: Rechargeable Date Issued: 04/29/2023 Hearing aid check: Both hearing aids were cleaned and checked. Initial inspection revealed cerumen blocking the wax guards. The Happy Jack and his were re-instructed on replacing the domes and wax guards. The Veterans was successful when practicing today. Biologic check was good for both devices. Otoscopy: Clear canals. A cleaning brush was given to the and a supply of domes and wax guards was ordered in [facility]. Plan: The Happy Jack will follow up as needed. /erasto/ HIEU BLOCK Audiology Health Hazardous Materials Analyst Signed: 12/14/2024 15:11 /erasto/ MANUELITO Valenzuela CCC-A CHIEF, AUDIOLOGY/TIPPLE BOSS Cosigned: 12/15/2024 07:49 HIEU BLOCK [facility]
--- OUTSIDE RECORDS SUMMARY | 2024-12-14 09:00 | XMS_ITS ---
Author Name [facility] [facility] [place] [facility] [facility] [place] Address [address] [place] [address] Care Team Providers Care Instrument Technologist Name Role Phone IVAN VELAZQUEZ Primary Care Provider Unav ailable GILDARDO, LATONYA Unavailable Unavailable CALEB ORTIZ, ALYCIA Unavailable Unavailable DANISHA, MENDEZ Unavailable Unavailable CHAPTOMY, LETA Unavailable Unavailable FEIILAN, ADAN Unavailable Unavailable DIVINE, EWA Unavailable Unavailable SHALA, DENISE Unavailable Unavailable ITA, [...] (PPO) BASIC SELF Aug 21, 2013 [id number] [phone] MIKEELVIACELIO BARAHONA PATIENT ANTHEM [place] FEP PREFERRED PROVIDER ORGANIZAT ION (PPO) FEP BASIC IND Aug 21, 2013 111 [id number] [phone] CELIO GARDNER PATIENT ANTHEM FEP PREFERRED PROVIDER ORGANIZAT ION (PPO) FEP BASIC SELF Aug 21, 2013 111 [id number] [phone] HeuCELIO GAN PATIENT BCBS FEP PREFERRED PROVIDER ORGANIZAT ION (PPO) [id number] Aug 21, 2013 111 [id number] CELIO GARDNER PATIENT BCBS YOLANDA ATTN FEP CLAIMS PREFERRED PROVIDER ORGANIZAT ION (PPO) FEP BASIC IND Aug 21, 2013 111 [id number] [phone] CELIO GARDNER PATIENT [place] FEP PREFERRED PROVIDER ORGANIZAT ION (PPO) FEP BASIC IND Aug 21, 2013 111 [id number] [phone] CELIO GARDNER PATIENT [place] F[place] PREFERRED PROVIDER ORGANIZAT ION (PPO) BASIC INDIV IDUAL Aug 21, 2013 111 [id number] [phone] CELIO JAMESON PATIENT [place] FEP PREFERRED PROVIDER ORGANIZAT ION (PPO) BASIC SELF Aug 21, 2013 111 [id number] [phone] CELIO GARDNER PATIENT [place] FEP PREFERRED PROVIDER ORGANIZAT ION (PPO) BASIC SELF Aug 21, 2013 111 [id number] CELIO JAMESON PATIENT [place] FEP DENTAL DENTAL INSURANCE BASIC Aug 21, 2013 DENTAL [id number] CELIO GARDNER PATIENT [place] FEP PREFERRED PROVIDER ORGANIZAT ION (PPO) BASIC SELF Aug 21, 2013 [id number] CELIO GARDNER PATIENT [place] FEDERAL PREFERRED PROVIDER ORGANIZAT ION (PPO) BASIC SELF Aug 21, 2013 111 [id number] CELIO GARDNER PATIENT [place] FED[place] PREFERRED PROVIDER ORGANIZAT ION (PPO) STAND MAGDAL[place] FAMIL Y Aug 18, 2006 [id number] CELIO GARDNER PATIENT [employer] BCBS FEP MEDICARE SECONDARY (NO B EXC) FEHB BASIC MEDSE C Aug 21, 2013 111 [id number] [phone] CELIO GARDNER PATIENT [employer] BCBS FEP PREFERRED PROVIDER ORGANIZAT ION (PPO) FEP STAND [place] Sep 23, 2006 [id number] CELIO GARDNER PATIENT [employer] FEP ([id number]) PRESCRIPT ION FEP RX Aug 21, 2013 [id number] [phone] CELIO GARDNER PATIENT [place] FEP [id number] PRESCRIPT ION FEPRX Aug 21, 2013 [id number] [phone] CELIO GARDNER CAREELIJAH FEP BCBS PRESCRIPT ION CAREM ARK FEPRX Aug 21, 2013 [id number] CELIO JAMESON FEP RX [id number] PRESCRIPT ION [id number] Aug 21, 2013 [id number] CELIO GARDNER CAREMARK-F EP BCBS PRESCRIPT ION FEP Aug 21, 2013 [id number] CELIO GARDNER PATIENT MEDICARE ([facility]) MEDICARE () PART A Nov 16, 2021 PART A [id number] CELIO GARDNER PATIENT MEDICARE ([facility]) MEDICARE (M) PART B Nov 16, 2021 PART B [id number] [phone] CELIO GARDNER PATIENT MEDICARE ([facility]) MEDICARE (M) PART A Nov 16, 2021 PART A [id number] [phone] CELIO GARDNER PATIENT MEDICARE ([facility]) MEDICARE (M) PART B Nov 16, 2021 PART B [id number] CELIO GARDNER PATIENT MEDICARE ([facility]) MEDICARE () PART A Nov 16, 2021 PART A [id number] CELIO GARDNER PATIENT MEDICARE ([place]) MEDICARE (M) PART B Nov 16, 2021 PART B [id number] CELIO GARDNER PATIENT MEDICARE ([place]) MEDICARE () PART A Nov 16, 2021 PART A [id number] CELIO GARDNER PATIENT MEDICARE ([place]) MEDICARE () PART B Nov 16, 2021 PART B [id number] CELIO GARDNER PATIENT MEDICARE (WN) MEDICARE (M) PART A Nov 16, 2021 PART A [id number] CELIO GARDNER PATIENT MEDICARE (WNR) MEDICARE (M) PART B Nov 16, 2021 PART B [id number] CELIO GARDNER PATIENT MEDICARE (WNR) MEDICARE (M) PART A Nov 16, 2021 PART A [id number] CELIO GARDNER PATIENT MEDICARE (WNR) MEDICARE (M) PART B Nov 16, 2021 PART B [id number] CELIO GARDNER PATIENT MEDICARE PART D (WNR) MEDICARE (M) PART D Aug 18, 2023 PART D [id number] CELIO GARDNER PATIENT Selected Encounter This section includes the information on record at [place] for the Encounter. Date/Time Encounter Type Encounter Description Reason Provider Source Dec 14, 2024 02:00 PM OFFICE O/P EST MOD 30 MIN OPTOMETRY ICD-10-CM H35.053 Retinal neovascularizat ion, unspecified, bilateral MICHAEL BERG Alcides Encounter Template Text not used by [place] Assessments - Encounter Diagnoses This section includes the primary and secondary diagnoses documented for the Encounter. Date/Time Primary/Secondary Diagnosis Diagnosis Name Provider Source Mar 16, 2025 02:30 PM PRIMARY Retinal neovascularizati on, unspecified, bilateral MICHAEL BERG [place] [facility] [place] [facility] Mar 16, 2025 02:30 PM SECONDARY Combined forms of age-related cataract, bilateral MICHAEL BERG [place] [facility] [place] [facility] Mar 16, 2025 02:30 PM SECONDARY Dry eye syndrome of bilateral lacrimal glands [place]EL BERG [place] [facility] [place] [facility] Mar 16, 2025 02:30 PM SECONDARY Nexdtve age-related mclr degn, bilateral, early dry stage MICHAEL BERG [place] [facility] [place] [facility] Mar 16, 2025 02:30 PM SECONDARY Presbyopia MICHAEL BERG [place] [facility] [place] [facility] Plan of Treatment: Future Appointments (+ 6 months) and Future Tests (+/- 45 days) The Plan of Treatment section includes future care activities for the patient from [facility] [place] [facility] This section includes future appointments and future orders which are active, pending or scheduled. Future Appointments This section includes appointments that were scheduled to occur 6 months from the date of the Encounter, up to a maximum of 20 appointments. The data comes from all [place] treatment facilities. Appointment Date/Time Appointment Type Appointme nt Facility Name December 28, 2024 02:00 PM AMBULATORY - PSYCHIATRY [facility] January 11, 2025 03:30 PM AMBULATORY - PSYCHIATRY [facility] Feb 01, 2025 02:00 PM AMBULATORY - PSYCHIATRY [facility] Feb 15, 2025 03:00 PM AMBULATORY - PSYCHIATRY [facility] Mar 03, 2025 08:00 AM AMBULATORY - [place]ICINE [place] [facility] [place] [facility] Apr 05, 2025 03:00 PM AMBULATORY - PSYCHIATRY [facility] Apr 05, 2025 04:00 PM AMBULATORY - PSYCHIATRY [facility] May 24, 2025 03:30 PM AMBULATORY - PSYCHIATRY [facility] Social History: Smoking Status (Most current) and Tobacco Use (All prior to encounter date) This section includes the most current, and the historical, smoking and tobacco- related health factors from the [place] facility where the Encounter took place. Current Smoking Status This section includes the most current smoking, or tobacco-related health factor, from the [place] facility where the Encounter took place. Date/Time Current Smoking Status Comment [facility] Sep 17, 2021 11:00 AM VA-TOBACCO FORMER USER [place] [facility] [place] [facility] Tobacco Use History This section includes a history of the smoking, or tobacco-related health factors, that were collected on or before the date of the Encounter. The data comes from the [place] facility where the Encounter took place. Date/Time Smoking Status/Tobac co Use Comment Facility Sep 17, 2021 11:00 AM VA-TOBACCO QUIT 15 YRS OR MORE [place] [facility] [place] [facility] Mar 01, 2020 01:30 PM VA-TOBACCO FORMER USER [place] [facility] [place] [facility] Mar 01, 2020 01:30 PM VA-TOBACCO QUIT 15 YRS OR MORE [place] [facility] [place] [facility] Jan 20, 2019 09:37 AM VA-TOBACCO NEVER USED [place] [facility] [place] [facility] Dec 11, 2017 05:17 PM QUIT TOBACCO USE > 7 YEARS AGO [facility] Jan 20, 2017 03:12 PM QUIT TOBACCO USE > 7 YEARS AGO [facility] January 09, 2016 08:48 AM QUIT TOBACCO USE > 7 YEARS AGO . [facility] Jun 09, 2006 05:45 PM LIFETIME NON-TOBACCO USER [facility] Aug 22, 2003 03:27 PM HISTORY OF SMOKING [facility] Aug 22, 2003 03:27 PM QUIT TOBACCO USE IN PAST YEAR [facility] Jun 24, 2003 12:01 PM CURRENT SMOKER about 1 week/so [facility] Advance Directives: All historical and current Section Date Range: From patient's date of to the date document was created. This section includes ALL of a patient's completed or amended [place] Advance and Rescinded Directives. The entries below indicate that a directive exists for the patient, but an actual copy is not included with this document. The data comes from all [place] facilities. Date Advance Directives Provider Source Apr 08, 2024 ADVANCE DIRECTIVE LATONYA EWING [facility] Sep 19, 2021 GOALS & PREFERENCES TO INFORM LIFE-SUSTAINING TREATMENT PLAN MARY VIVAS [facility] Sep 19, 2020 ADVANCE DIRECTIVE ALANA MONIQUE [facility] Encounter Notes: All associated encounter notes This section contains the clinical notes associated to the Encounter. Date/Time Encounter Note(s) Provider Source Dec 14, 2024 02:59 PM OPTOMETRY NOTE: LOCAL TITLE: OPTOMETRY NOTE STANDARD TITLE: OPTOMETRY NOTE DATE OF NOTE: DEC 14, 2024@14:59 ENTRY DATE: DEC 14, 2024@14:59:56 AUTHOR: MICHAEL BERG EXP COSIGNER: URGENCY: STATUS: COMPLETED OPTOMETRY NOTE Has ADDENDA Please assist in ordering the following Duplicate(s): -- OD +2.25 -0.75 X100 Add:0.00 Pzm:0.00 Dir: Prz2:0.00 Dir2: OS +2.00 -0.75 X75 Add:0.00 Pzm:0.00 Dir: Prz2:0.00 Dir2: FITTING INFORMATION FPD:63 NPD: Anderson:R: L: SEG HT:R: L: Tint:None Shade:None VA Billable Items FRAME: BIG TWIST BLACK/CRYSTAL 56-18-145 Right Lens: POLY SINGLE VISION 1.586 POLY Left Lens: POLY SINGLE VISION 1.586 POLY KLEAR ANTI-REFLECTIVE COATING -- /azeb BERG OD DRUM CLEANER Signed: 12/14/2024 15:34 Receipt Acknowledged By: 12/16/2024 09:01 /azeb CANTU OPTOMETRY TECH 12/16/2024 ADDENDUM STATUS: COMPLETED Optometry Health Data Collection Interviewer ordered patient 1 pair(s) of SV eyeglasses on 12/14/2024 as directed by provider. OPT HT entered consult(s) for order on behalf of provider. /azeb CANTU OPTOMETRY TECH Signed: 12/16/2024 09:02 MICHAEL BERG [place] [facility] [place] [facility] Dec 14, 2024 02:01 PM OPTOMETRY NOTE: LOCAL TITLE: OPTOMETRY NOTE STANDARD TITLE: OPTOMETRY NOTE DATE OF NOTE: DEC 14, 2024@14:01 ENTRY DATE: DEC 14, 2024@14:01:27 AUTHOR: ONELIA MENSAH EXP COSIGNER: MICHAEL BERG URGENCY: STATUS: COMPLETED OPTOMETRY NOTE Has ADDENDA Active problems - Computerized Problem List is [...] Hypofunction 19. Benign prostatic hyperplasia (SNOMED CT 838166663) 20. Impaired Fasting Glucose 21. Exercise induced bronchospasm (SNOMED CT 510745464) 22. Hyperlipidemia (SNOMED CT 36332378) Active Outpatient Medications (including Supplies): Active Outpatient [...] 5) DULOXETINE HCL 20MG EC CAP TAKE ONE CAPSULE BY MOUTH ONCE ACTIVE DAILY Indication: DEPRESSION/ANXIETY [...] AREDS2/LUTE/ZEAX CAP/TAB TAKE 1 CAPSULE BY ACTIVE (S) MOUTH TWICE DAILY IN THE MORNING AND [...] NEEDED Indication: FOR INSOMNIA ASSOCIATED WITH DEPRESSION Allergies: PRAZOSIN All medications including those prescribed by outside VA's, community providers, and all OTC meds were reviewed and reconciled with patient to the best of their abilities. This 69 year old MALE is seen today for comprehensive eye exam [place]: DEC 09 Chief Complaint: Last visit at [facility] was December 05 2023 and now monitored for PCV OU at [facility] only unless recurrence or other concern. reports distance vision is blurry, [place] when watching TV. OU watery, unsure of frequency. Later in exam when discussing history of AT use caregiver reports he is not bothered by the dryness and they decline treatment at present. OHx: 1. Polypoidal choridal vasculopathy OU 2. MGD OU 3. Physiological cupping OU 4. NS OU Ocular Medications: (-) Pain: (-) ARAMBULA: (-) Diplopia: (-) Flashes: (-) Floaters: (-) Amaurosis Fugax/Tia's: (-) Eye Injury: (-) Eye Surgery: (-) TBI FOHx: (-) Glaucoma/ARMD/Blindness VITALS (most recent, as listed in the electronic record): B/P: 120/80 (11/18/2024 12:00) Pulse: 80 (11/18/2024 12:00) Temperature: 97.8 F [36.6 C] (11/18/2024 12:00) Weight: 222 lb [100.70 kg] (11/18/2024 12:00) Height: 72 in [182.9 cm] (08/20/2021 15:11) BMI: BMI: 30.2 PERTINENT LABS: HEMOGLOBIN A1C TREND Collection DT Spec HGBA1c 05/17/2024 11:48 BLOOD 5.4 10/01/2021 13:00 BLOOD 5.6 03/14/2020 10:03 BLOOD 6.0 H 01/11/2020 13:12 BLOOD 5.8 H 12/30/2014 07:12 BLOOD 6.0 (-) Smoker/Length of Time/PPD: Current Rx with last BCVA: OD: +2.00-0.72n902 OS: +1.75-0.72h743 ADD +2.50 DVA ( )sc ( )cc - phoropter OD: -1 OS: -2 Pupils: PERRL (-)APD EOMs: SAFE OU, (-)Pain/Diplopia CVF (facial, peripheral): FTFC OU Subjective Refraction: OD:+2.25-0.75e359 20-2 OS: +2.00-0.18i489 2020 Add: +2.50 All the above performed by student, reviewed by attending Anterior segment: Performed by student, repeated by attending * Lids: MGD OU Conj: white and quiet OU Cornea: clear OU TBUT reduced, reduced tear meniscus OU AC: D&Q OU Angles: 4x4 OU Iris: flat and clear OU Lens: 1+ NS tr ACC OU Tonometry: Performed by student, reviewed by attending * [ ] GAT [X] iCare [] Payan OD 09 mmHg OS 08 mmHg Time: 2:23pm Pachymetry OD 474um OS 469 um Fundus exam: Dilated: XXX 2:27pm Non dilated: Dilating Drops: 1GTT 1 % Tropicamide OU & 1GTT 2.5% Phenylephrine OU (Pt. ed. on side effects, dilation warning given and verbal consent obtained) Patient advised not to drive if they feel they have any symptoms which could affect their ability to drive safely. Patient advised not to engage in any activities which could put themselves or others at risk if they feel they have any symptoms which could affect their ability to perform those activities safely. Performed by student, repeated by attending * Vit: syneresis OU C/D: 0.25 OD, 0.25 OS Macula: pigment mottling OU (-)SRF/IRF scattered drusen OU PPole: clear A/V: 2/3 Vessels: normal caliber OU Periph: flat and intact (-)holes, tears, detachments 360 OU Assessment/Plan: 1. 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 - Monitor yearly with DFE 2. Non-Exudative Age related Macular Degeneration, bilateral, early dry stage - pt and pharmacy informaticist were educated on findings - Continue taking AREDS po bid, Refill request was filled by PCP - RTC 12 months for CEE 3.Dry eyes OU; (asymptomatic) - Pt. ed. on todays findings - Monitor 4. Combined Form Cataracts OU - Pt. ed. on findings - cataracts are not visually significant and that surgery is not necessary at this time - Ed. on importance of UV protection and on symptoms of glare - Monitor yearly 5. Physiological cupping, OU - Hx of Ocular hypertension, IOPs were normotensive today. - RTC 1 year for CEE, consider further imaging if index of suspicion for glaucoma increases 6. Hyperopia OU and presbyopia OU - Pt. ed. on todays findings - Ordering duplicate frames for (DVO) - Monitor Return to Clinic 12 months or earlier PRN Total Time: 30 Minutes *This includes time spent before, during and after the visit occurring on the day of service and does not include procedures coded separately. Time includes chart review, examination, counseling of patient/family/caregiver, ordering medications, ordering tests, ordering procedures, referring and communicating with other HCP, and documentation in the electronic health record. Time does not include procedures coded separately, time spent on a different calendar day or time of clinical staff. Medication Reconciliation: Outpatient: Has the patient been taking medications as documented in the EMLR? YES: The patient has been taking medications as documented in the EMLR. Essential Medication List for Review used to complete this medication reconciliation. INCLUDED IN THIS LIST: Alphabetical list of active outpatient prescriptions dispensed from this [place] (local) and dispensed from another [place] or [facility] facility (remote) as well as inpatient orders [...] whether with a VA or non-VA provider. Medication List: JLV Link Data on this list may not be complete. Please check JLV. Allergies/ADRs (Tool #5) FACILITY ALLERGY/ADR -------- MORTEZA TRONCOSO [facility] NO KNOWN ALLERGIES [facility] NO KNOWN ALLERGIES [place] [facility] [place] [facility] PRAZOSIN [facility] NO KNOWN ALLERGIES [facility] NO KNOWN ALLERGIES Med. Reconciliation (Tool #1) INCLUDED IN THIS LIST: Alphabetical list of active outpatient prescriptions dispensed from this [place] (local) and dispensed from another [place] or [facility] facility (remote) as well as inpatient orders (local pending and active), local clinic medications, locally documented non-VA medications, and local prescriptions that have or been discontinued in the past 90 days. Non-VA Meds Last Documented On: Mar 18, 2024 NOTE The display of VA prescriptions dispensed from another [place] or [facility] facility (remote) is limited to active outpatient prescription entries matched to National Drug File at the originating site and may not include some items such as investigational drugs, compounds, etc. NOT INCLUDED IN THIS LIST: Medications self-entered by the patient into personal health records (i.e. [employer]) are NOT included in this list. Non-VA medications documented outside this [place], remote inpatient orders (regardless of status) and remote clinic medications are NOT included in this list. The patient and provider must always discuss medications the patient is taking, regardless of where the medication was dispensed or obtained. OUTPT ASPIRIN 81MG EC TAB (Status = Active) TAKE ONE TABLET BY MOUTH ONCE DAILY TO PREVENT STROKE/HEART ATTACK Rx# [id number] Last Released: 12/11/24 Qty/Days Supply: 120/90 Rx Expiration Date: 04/02/25 Refills Remainin Indication: FOR MYOCARDIAL REINFARCTION PREVENTION OUTPT CLONAZEPAM 0.5MG TAB (Status = Active) TAKE ONE-HALF TABLET BY MOUTH FOUR TIMES A DAY MAY TAKE AN ADDITIONAL ONE-HALF TABLET PER 24 HOURS NEEDED Rx# [id number] Last Released: 11/25/24 Qty/Days Supply: 75/30 Rx Expiration Date: 01/20/25 Refills Remainin Indication: ANXIETY OUTPT DICLOFENAC NA 1% TOP GEL (Status = Active) APPLY 4 GRAMS TOPICALLY FOUR TIMES DAILY NEEDED FOR OSTEOARTHRITIS - USE DOSING CARD PROVIDED IN BOX Rx# [id number] Last Released: 10/13/24 Qty/Days Supply: 100/30 Rx Expiration Date: 04/30/25 Refills Remainin Indication: FOR OSTEOARTHRITIS OUTPT DOCUSATE NA 100MG CAP (Status = Active) TAKE THREE CAPSULES BY MOUTH AT BEDTIME NEEDED FOR CONSTIPATION TO SOFTEN STOOL Rx# [id number] Last Released: 12/11/24 Qty/Days Supply: 300/90 Rx Expiration Date: 04/02/25 Refills Remainin Indication: FOR CONSTIPATION OUTPT DULOXETINE HCL 20MG EC CAP (Status = Discontinued) TAKE ONE CAPSULE BY MOUTH ONCE DAILY DEPRESSION/ANXIETY Rx# [id number] Last Released: 10/07/24 Qty/Days Supply: 30 Rx Expiration Date: 10/06/25 Refills Remainin Indication: DEPRESSION/ANXIETY OUTPT DULOXETINE HCL 20MG EC CAP (Status = Discontinued) TAKE TWO CAPSULES BY MOUTH ONCE DAILY DEPRESSION/ANXIETY Rx# [id number] Last Released: 12/01/24 Qty/Days Supply: 60 Rx Expiration Date: 11/03/25 Refills Remainin Indication: DEPRESSION/ANXIETY OUTPT DULOXETINE HCL 20MG EC CAP (Status = Active) TAKE ONE CAPSULE BY MOUTH ONCE DAILY DEPRESSION/ANXIETY Rx# [id number] Last Released: 12/06/24 Qty/Days Supply: Rx Expiration Date: 12/01/25 Refills Remainin Indication: DEPRESSION/ANXIETY OUTPT ESCITALOPRAM OXALATE 5MG TAB (Status = Discontinued) TAKE ONE TABLET BY MOUTH ONCE DAILY FOR MOOD/DEPRESSION Rx# [id number] Last Released: 09/01/24 Qty/Days Supply: Rx Expiration Date: 03/19/25 Refills Remainin Indication: FOR MAJOR DEPRESSIVE DISORDER OUTPT ESCITALOPRAM OXALATE 5MG TAB (Status = Discontinued) TAKE ONE TABLET BY MOUTH ONCE DAILY FOR MOOD/DEPRESSION Rx# [id number] Last Released: 09/29/24 Qty/Days Supply: Rx Expiration Date: 09/28/25 Refills Remainin Indication: FOR MAJOR DEPRESSIVE DISORDER OUTPT ESCITALOPRAM OXALATE 5MG TAB (Status = Discontinued) TAKE ONE-HALF TABLET BY MOUTH ONCE DAILY FOR MOOD/DEPRESSION Rx# [id number] Last Released: Qty/Days Supply: Rx Expiration Date: 10/06/25 Refills Remainin Indication: FOR MAJOR DEPRESSIVE DISORDER OUTPT MELATONIN 5MG CAP/TAB (Status = Active) TAKE TWO CAPSULE/TABLET BY MOUTH AT BEDTIME NEEDED FOR INSOMNIA Rx# [id number] Last Released: 09/16/24 Qty/Days Supply: 180/90 Rx Expiration Date: 09/01/25 Refills Remainin Indication: FOR INSOMNIA OUTPT MEMANTINE HCL 10MG TAB (Status = Active) TAKE ONE TABLET BY MOUTH TWICE DAILY DEMENTIA Rx# [id number] Last Released: 12/01/24 Qty/Days Supply: 60/30 Rx Expiration Date: 09/01/25 Refills Remainin Indication: DEMENTIA OUTPT METOPROLOL SUCCINATE 100MG SA TAB (Status = Discontinued) TAKE ONE TABLET BY MOUTH ONCE DAILY FOR BLOOD PRESSURE/HEART Rx# [id number] Last Released: 09/10/24 Qty/Days Supply: 90/90 Rx Expiration Date: 04/02/25 Refills Remainin Indication: FOR HIGH BLOOD PRESSURE OUTPT METOPROLOL SUCCINATE 100MG SA TAB (Status = Active) TAKE ONE TABLET BY MOUTH ONCE DAILY FOR BLOOD PRESSURE/HEART Rx# [id number] Last Released: 12/09/24 Qty/Days Supply: 90/90 Rx Expiration Date: 11/24/25 Refills Remainin Indication: FOR HIGH BLOOD PRESSURE OUTPT MULTIVIT/OPHTH AREDS2/LUTE/ZEAX CAP/TAB (Status = Active/Suspended) TAKE 1 CAPSULE BY MOUTH TWICE DAILY FOR VITAMIN SUPPLEMENTATION IN THE MORNING AND EVENING, WITH FOOD Rx# [id number] Last Released: 11/16/24 Qty/Days Supply: 120/60 Rx Expiration Date: 04/02/25 Refills Remainin Indication: FOR VITAMIN SUPPLEMENTATION OUTPT POLYETHYLENE GLYCOL 3350 ORAL PWDR (Status = Discontinued) TAKE 17 GRAMS(FILL CAP TO 17GM LINE) BY MOUTH ONCE DAILY NEEDED FOR CONSTIPATION [MIX WITH 4 TO 8OZ. OF BEVERAGE] Rx# [id number] Last Released: 07/01/24 Qty/Days Supply: 238/30 Rx Expiration Date: 04/30/25 Refills Remainin Indication: FOR CONSTIPATION OUTPT POLYETHYLENE GLYCOL 3350 ORAL PWDR (Status = Active) TAKE 17 GRAMS(FILL CAP TO 17GM LINE) BY MOUTH ONCE DAILY NEEDED FOR CONSTIPATION [MIX WITH 4 TO 8OZ. OF BEVERAGE] Rx# [id number] Last Released: 12/11/24 Qty/Days Supply: 238/30 Rx Expiration Date: 10/01/25 Refills Remainin Indication: FOR CONSTIPATION OUTPT QUETIAPINE FUMARATE 25MG TAB (Status = Discontinued) TAKE ONE-HALF TABLET BY MOUTH TWICE DAILY AND TAKE TWO AND ONE-HALF TABLETS AT BEDTIME FOR MOOD Rx# [id number] Last Released: 09/01/24 Qty/Days Supply: 105/30 Rx Expiration Date: 07/21/25 Refills Remainin Indication: FOR MOOD OUTPT QUETIAPINE FUMARATE 25MG TAB (Status = Active) TAKE ONE-HALF TABLET BY MOUTH ONCE DAILY AND TAKE TWO TABLETS AT BEDTIME FOR MOOD Rx# [id number] Last Released: 10/07/24 Qty/Days Supply: 75/30 Rx Expiration Date: 10/06/25 Refills Remainin Indication: FOR MOOD OUTPT RIVASTIGMINE TARTRATE 3MG CAP (Status = Discontinued) TAKE ONE CAPSULE BY MOUTH TWICE DAILY FOR DEMENTIA Rx# [id number] Last Released: 09/01/24 Qty/Days Supply: 60/30 Rx Expiration Date: 03/19/25 Refills Remainin Indication: FOR DEMENTIA OUTPT RIVASTIGMINE TARTRATE 3MG CAP (Status = Active) TAKE ONE CAPSULE BY MOUTH TWICE DAILY FOR DEMENTIA Rx# [id number] Last Released: 12/07/24 Qty/Days Supply: 60/30 Rx Expiration Date: 09/28/25 Refills Remainin Indication: FOR DEMENTIA OUTPT SIMVASTATIN 40MG TAB (Status = Active) TAKE ONE TABLET BY MOUTH AT BEDTIME FOR CHOLESTEROL Rx# [id number] Last Released: 12/11/24 Qty/Days Supply: 90/90 Rx Expiration Date: 04/02/25 Refills Remainin Indication: FOR HIGH CHOLESTEROL OUTPT TAMSULOSIN HCL 0.4MG CAP (Status = Active) TAKE TWO CAPSULES BY MOUTH AT BEDTIME FOR ENLARGED PROSTATE Rx# [id number] Last Released: 11/26/24 Qty/Days Supply: 180/90 Rx Expiration Date: 06/18/25 Refills Remainin Indication: FOR ENLARGED PROSTATE OUTPT TRAZODONE HCL 100MG TAB (Status = Active) TAKE TWO TABLETS BY MOUTH AT BEDTIME NEEDED FOR INSOMNIA ASSOCIATED WITH DEPRESSION Rx# [id number] Last Released: 12/13/24 Qty/Days Supply: 60/30 Rx Expiration Date: 09/01/25 Refills Remainin Indication: FOR INSOMNIA ASSOCIATED WITH DEPRESSION SUPPLIES OUTPT TABLET CUTTER (PILL SPLITTER) (Status = ) USE CUTTER DIRECTED ONCE DAILY TO SPLIT TABLETS Rx# [id number] Last Released: 10/08/24 Qty/Days Supply: 08/18 Rx Expiration Date: 11/04/24 Refills Remainin PHARMACY TERMS AND POSSIBLE PATIENT ACTIONS [place] prescription PHARMACY POSSIBLE PATIENT TERMS EXPLANATION ACTIONS -------- ------ ACTIVE A prescription that can be If you have refills, filled at the local [place] pharmacy. you may request a refill of this prescription from your [place] pharmacy. CLINIC A medication you received during If you have questions a visit to a [place] clinic or about this medication emergency department. contact your [place] healthcare team. DISCONTINUED A prescription your provider has [facility] stopped. It is no longer healthcare team if you available to be sent to you or need more of this picked up at the [place] pharmacy medication. window. A prescription which is too old Contact your [facility] to fill. This does not refer to healthcare team if you the expiration date of the need more of this medication in the container. medication. NON-VA A medication that came from If this medication someplace other than a [facility] information is pharmacy. This may be a incorrect or out of prescription from either the [facility] date, please tell your or non VA providers that was VA healthcare team. filled outside the [facility]. Or, it may be an [id number] (OTC), herbal, dietary supplements or sample medication. ON HOLD An active prescription that will Contact [facility] not be filled until pharmacy pharmacy when you need resolves the issue. more of this medication. PARKED An active prescription that will Contact your [facility] not be filled until the patient pharmacy when you need requests it. this medication. PENDING This prescription order has been If you have been sent to the pharmacy for review instructed to start and is not ready yet. this medication now, contact your [facility] pharmacy. SUSPENDED An active prescription that is Contact your [facility] not scheduled to be filled yet. pharmacy if you need You should receive it before this medication now. you run out. (x) Printed Medication Reconciliation List Offered and Declined by () Medication Reconciliation List Printed for [place] at Exam () Optometry HT Please Print and Mail Copy of Medication Reconciliation List () AMSA Please Print and Mail Copy of Medication Reconciliation List /erasto/ VESNA MENSAH OPTOMETRY STUDENT Signed: 12/14/2024 15:50 /erasto/ MICHAEL BERG OD DRUM CLEANER Cosigned: 12/14/2024 15:52 12/14/2024 ADDENDUM STATUS: COMPLETED The optometry internet salesperson participated in this exam, I saw this [place] in conjunction with the optometry student. The entrance tests and refraction were performed by the student and reviewed by me. I personally met with the patient, confirmed the hisory, complaints and the student's findings, and performed slit lamp and fundus evaluation as indicated. I reviewed and agree with the stated findings, assessment and plan. I have added/edited the documentation to reflect my exam findings and changes to the assessment and plan. Ed re today's findings. [place] repeated back the plan and education. All reminders completed by attending and documented in student note. /erasto/ MICHAEL BERG OD DRUM CLEANER Signed: 12/14/2024 15:52 SALLY MENSAH CNTRL [facility]
--- OUTSIDE RECORDS SUMMARY | 2024-12-14 10:56 | XMS_ITS ---
Author Name [facility] Address [address] [place] [address] Care Team Providers Care Soft Shoe Dancer Name Role Phone IVAN VELAZQUEZ Primary Care [...] (PPO) BASIC SELF Aug 21, 2013 111 [id number] [phone] GISELL SONG PATIENT ANTHEM [place] F[place] PREFERRED PROVIDER ORGANIZAT ION (PPO) FEP BASIC IND Aug 21, 2013 111 [id number] [phone] SONG GARDNER PATIENT ANTHEM FEP PREFERRED PROVIDER ORGANIZAT ION (PPO) FEP BASIC SELF Aug 21, 2013 111 [id number] [phone] GISELL SONG PATIENT BCBS FEP PREFERRED PROVIDER ORGANIZAT ION (PPO) [id number] Aug 21, 2013 111 [id number] SONG GARDNER PATIENT BCBS YOLANDA ATTN FEP CLAIMS PREFERRED PROVIDER ORGANIZAT ION (PPO) FEP BASIC IND Aug 21, 2013 111 [id number] [phone] SONG GARDNER PATIENT [place] FEP PREFERRED PROVIDER ORGANIZAT ION (PPO) FEP BASIC IND Aug 21, 2013 111 [id number] [phone] SONG GARDNER PATIENT [place] F[place] PREFERRED PROVIDER ORGANIZAT ION (PPO) BASIC INDIV IDUAL Aug 21, 2013 111 [id number] [phone] SONG MARAVILLA PATIENT [place] OF [place] FEP PREFERRED PROVIDER ORGANIZAT ION (PPO) BASIC SELF Aug 21, 2013 111 [id number] [phone] SONG GARDNER PATIENT [place] FEP PREFERRED PROVIDER ORGANIZAT ION (PPO) BASIC SELF Aug 21, 2013 111 [id number] [phone] SONG MARAVILLA PATIENT [place] FEP DENTAL DENTAL INSURANCE BASIC Aug 21, 2013 DENTAL [id number] SONG GARDNER PATIENT [place] OF [place] FEP PREFERRED PROVIDER ORGANIZAT ION (PPO) BASIC SELF Aug 21, 2013 111 [id number] [phone] SONG GARDNER PATIENT [place] OF [place] FEDERAL PREFERRED PROVIDER ORGANIZAT ION (PPO) BASIC SELF Aug 21, 2013 111 [id number] [phone] SONG GARDNER PATIENT [place] PREFERRED PROVIDER ORGANIZAT ION (PPO) STAND [facility]AL[place] FAMIL Y Aug 18, 2006 105 [id number] [phone] SONG GARDNER PATIENT CAREFIRST BCBS FEP MEDICARE SECONDARY (NO B EXC) FEHB BASIC MEDSE C Aug 21, 2013 111 [id number] [phone] SONG GARDNER PATIENT [employer] BCBS FEP PREFERRED PROVIDER ORGANIZAT ION (PPO) FEP STAND [place] Sep 23, 2006 [id number] SONG GARDNER PATIENT [place] FEP ([id number]) PRESCRIPT ION FEP RX Aug 21, 2013 [id number] [phone] GARDNER, SONG PATIENT [place] FEP [id number] PRESCRIPT ION FEPRX Aug 21, 2013 [id number] [phone] SONG GARDNER CAREELIJAH FEP BCBS PRESCRIPT ION CAREM ARK FEPRX Aug 21, 2013 [id number] SONG MARAVILLA CAREELIJAH FEP RX [id number] PRESCRIPT ION [id number] Aug 21, 2013 [id number] SONG GARDNER CAREMARK-F EP BCBS PRESCRIPT ION FEP Aug 21, 2013 [id number] [phone] SONG GARDNER MEDICARE ([facility]) MEDICARE () PART A Nov 16, 2021 PART A [id number] [phone] SONG GARDNER PATIENT MEDICARE ([facility]) MEDICARE () PART B Nov 16, 2021 PART B [id number] [phone] SONG GARDNER PATIENT MEDICARE ([place]) MEDICARE ) PART A Nov 16, 2021 PART A [id number] [phone] SONG GARDNER PATIENT MEDICARE ([facility]) MEDICARE () PART B Nov 16, 2021 PART B [id number] [phone] SONG GARDNER PATIENT MEDICARE ([place]) MEDICARE () PART A Nov 16, 2021 PART A [id number] SONG GARDNER PATIENT MEDICARE (WN) MEDICARE () PART B Nov 16, 2021 PART B [id number] SONG GARDNER PATIENT MEDICARE (WN) MEDICARE () PART A Nov 16, 2021 PART A [id number] [phone] SONG GARDNER PATIENT MEDICARE ([place]) MEDICARE () PART B Nov 16, 2021 PART B [id number] SONG GARDNER PATIENT MEDICARE (WN) MEDICARE () PART A Nov 16, 2021 PART A [id number] [phone] SONG GARDNER PATIENT MEDICARE (WNR) MEDICARE (M) PART B Nov 16, 2021 PART B [id number] SONG GARDNER PATIENT MEDICARE (WNR) MEDICARE (M) PART A Nov 16, 2021 PART A [id number] SONG GARDNER PATIENT MEDICARE (WNR) MEDICARE (M) PART B Nov 16, 2021 PART B [id number] [phone] SONG GARDNER PATIENT MEDICARE PART D (WNR) MEDICARE (M) PART D Aug 18, 2023 PART D [id number] [phone] SONG GARDNER PATIENT Selected Encounter This section includes the information on record at [place] for the Encounter. Date/Time Encounter Type Encounter Description Reason Provider Source Dec 14, 2024 03:56 PM NQHP OL DIG ASSMT&MGMT 21+ [facility] - CLINICAL PHARMACIST ICD-10-CM Z79.899 Other meterman (current) drug therapy HIEU PECK [facility] Encounter Template Text not used by [place] Assessments - Encounter Diagnoses This section includes the primary and secondary diagnoses documented for the Encounter. Date/Time Primary/Secondary Diagnosis Diagnosis Name Provider Source Dec 15, 2024 09:13 AM PRIMARY Other meterman (current) drug therapy HIEU PECK [facility] [place] [facility] Plan of Treatment: Future Appointments (+ 6 months) and Future Tests (+/- 45 days) The Plan of Treatment section includes future care activities for the patient from all [place] treatmentfacilities. This section includes future appointments and future orders which are active, pending or scheduled. Future Appointments This section includes appointments that were scheduled to occur 6 months from the date of the Encounter, up to a maximum of 20 appointments. The data comes from all [place] treatment facilities. Appointment Date/Time Appointment Type Appointme nt Facility Name December 28, 2024 02:00 PM AMBULATORY - PSYCHIATRY [facility] January 11, 2025 03:30 PM AMBULATORY - PSYCHIATRY [facility] Feb 01, 2025 02:00 PM AMBULATORY - PSYCHIATRY [facility] Feb 15, 2025 03:00 PM AMBULATORY - PSYCHIATRY [facility] Mar 03, 2025 08:00 AM AMBULATORY - MEDICINE [place] [facility] [place] [facility] Apr 05, 2025 03:00 PM AMBULATORY - PSYCHIATRY [facility] Apr 05, 2025 04:00 PM AMBULATORY - PSYCHIATRY [facility] May 24, 2025 03:30 PM AMBULATORY - PSYCHIATRY [facility] Social History: Smoking Status (Most current) and Tobacco Use (All prior to encounter date) This section includes the most current, and the historical, smoking and tobacco- related health factors from the [place] facility where the Encounter took place. Current Smoking Status This section includes the most current smoking, or tobacco-related health factor, from the [place] facility where the Encounter took place. Date/Time Current Smoking Status Comment [facility] Sep 17, 2021 11:00 AM VA-TOBACCO FORMER USER [place] [facility] [place] [facility] Tobacco Use History This section includes a history of the smoking, or tobacco-related health factors, that were collected on or before the date of the Encounter. The data comes from the [place] facility where the Encounter took place. Date/Time Smoking Status/Tobac co Use Comment Facility Sep 17, 2021 11:00 AM VA-TOBACCO QUIT 15 YRS OR MORE [facility] [place] [facility] Mar 01, 2020 01:30 PM VA-TOBACCO FORMER USER [facility] [place] [facility] Mar 01, 2020 01:30 PM VA-TOBACCO QUIT 15 YRS OR MORE [facility] [place] [facility] Jan 20, 2019 09:37 AM VA-TOBACCO NEVER USED [place] [facility] [place] [facility] Dec 11, 2017 05:17 PM QUIT TOBACCO USE > 7 YEARS AGO [facility] [place] [facility] Jan 20, 2017 03:12 PM QUIT TOBACCO USE > 7 YEARS AGO [facility] [place] [facility] January 09, 2016 08:48 AM QUIT TOBACCO USE > 7 YEARS AGO . [facility] [place] [facility] Jun 09, 2006 05:45 PM LIFETIME NON-TOBACCO USER [facility] [place] [facility] Aug 22, 2003 03:27 PM HISTORY OF SMOKING [facility] [place] [facility] Aug 22, 2003 03:27 PM QUIT TOBACCO USE IN PAST YEAR [facility] [place] [facility] Jun 24, 2003 12:01 PM CURRENT SMOKER about 1 week/so [facility] Advance Directives: All historical and current Section Date Range: From patient's date of to the date document was created. This section includes ALL of a patient's completed or amended [place] Advance and Rescinded Directives. The entries below indicate that a directive exists for the patient, but an actual copy is not included with this document. The data comes from all [place] facilities. Date Advance Directives Provider Source Apr 08, 2024 ADVANCE DIRECTIVE LATONYA EWING [facility] Sep 19, 2021 GOALS & PREFERENCES TO INFORM LIFE-SUSTAINING TREATMENT PLAN [facility] Sep 19, 2020 ADVANCE DIRECTIVE KAYDENALANA GUDINOE [facility] Encounter Notes: All associated encounter notes This section contains the clinical notes associated to the Encounter. Date/Time Encounter Note(s) Provider Source Dec 15, 2024 01:32 PM ADDENDUM: LOCAL TITLE: Addendum STANDARD TITLE: ADDENDUM DATE OF NOTE: DEC 15, 2024@13:32:53 ENTRY DATE: DEC 15, 2024@13:32:54 AUTHOR: AWA VELAZQUEZ COSIGNER: URGENCY: STATUS: COMPLETED Please review at upcoming f/u. Future Clinic Visits 12/28/2024 14:00 [facility] SW 2 01/04/2025 15:00 [facility] PSYTR 3 Recommendations: - [place] follows closely with [place] Psych for management of depression with psychotic features, anxiety, and LBD with behavioral disturbances. Per review of recent notes, and were encouraged to gradually reduce total daily dose of quetiapine, as tolerated, in an effort to minimize risk/potential for AEs in this . He is not up-to-date with refills of this agent suggesting that this recommendation has been implemented. Please clarify how has recently been taking this agent and alert Psych provider (Dr. Gurvinder Avalos) if how he has been taking differs from the current Rx instructions to ensure awareness by prescriber prior to next f/u and allow for reconciliation of active med list. * quetiapine - last filled 10/06/24, 09/03/24 (30-day supply) /es/ IVAN VELAZQUEZ RN,MSN,[employer] SECRETARY-C [facility] NURSE PRACTITIONER Signed: 12/15/2024 13:33 Receipt Acknowledged By: 12/27/2024 08:34 /es/ GURVINDER AVALOS MD STAFF PSYCHIATRIST --- Original Document --- 12/14/24 [facility] PHARMAC[facility] MEDICATION REVIEW: Song Maravilla is a 69 year-old WHITE MALE. PMH (per problem list/chart [...] hx of exercise-induced bronchospasm, polypoidal choroidal vasculopathy, insomnia, dry ARMD Alcohol (-) Tobacco (-) Allergies/ADR: PRAZOSIN (nightmares) Active Outpatient Medications Status 1) ASPIRIN 81MG EC TAB TAKE ONE TABLET BY MOUTH ONCE DAILY TO ACTIVE PREVENT STROKE/HEART ATTACK Indication: FOR MYOCARDIAL REINFARCTION PREVENTION 2) CLONAZEPAM 0.5MG TAB TAKE ONE-HALF TABLET BY MOUTH FOUR ACTIVE TIMES A DAY MAY TAKE AN ADDITIONAL ONE-HALF TABLET PER 24 HOURS NEEDED Indication: ANXIETY * has rarely been using the PRN dose 3) DICLOFENAC NA 1% TOP GEL APPLY 4 GRAMS TOPICALLY FOUR TIMES ACTIVE DAILY NEEDED - USE DOSING CARD PROVIDED IN BOX Indication: FOR OSTEOARTHRITIS 4) DOCUSATE NA 100MG CAP TAKE THREE CAPSULES BY MOUTH AT ACTIVE BEDTIME NEEDED TO SOFTEN STOOL Indication: FOR CONSTIPATION 5) DULOXETINE HCL 20MG EC CAP TAKE ONE CAPSULE BY MOUTH ONCE ACTIVE DAILY Indication: DEPRESSION/ANXIETY * NEW 6) MELATONIN 5MG CAP/TAB TAKE TWO CAPSULE/TABLET [...] TWO TABLETS AT BEDTIME Indication: FOR MOOD * CHANGE IN DOSING from 12.5mg BID plus 2.5 tabs (62.5mg) at HS 12) RIVASTIGMINE TARTRATE 3MG CAP TAKE ONE [...] NEEDED Indication: FOR INSOMNIA ASSOCIATED WITH DEPRESSION Since last review, escitalopram was discontinued. THE ABOVE MEDICATIONS WERE REVIEWED FOR: ADR, potential incompatibilities, compliance, duplication of therapy, and indications on problem list Other Rx/OTC/Herbals: none identified High Alert Meds: clonazepam, quetiapine, trazodone Look Alike/Sound Alike Meds: clonazepam, duloxetine, metoprolol succinate, quetiapine, trazodone Duplication of Therapy: none Excessive Duration: none Vitals: ======= Ht: 72 in [182.9 cm] (08/20/2021 15:11) Wt: 222 lb [100.70 kg] (11/18/2024 12:00) BMI: 30.2 BP: 120/80 (11/18/2024 12:00) HR: 80 (11/18/2024 12:00) Pain: 0 (11/18/2024 12:00) Labs: ===== SERUM Na K BUN SCr 05/17/24 137 4 18 0.91 06/03/22 140 4.4 22 1.05 eGFR (CKD-EPI 2020): above 90 (05/17/24) CrCl (C&G, SCr 0.91, adj BW): ~95 mL/min SERUM AST ALT 05/17/24 BLOOD WBC [...] In the last 90 days: - No falls/hospitalizations/infectio ns noted - Per the 10/05/24 Psych [facility], plan to taper off escitalopram and transition to duloxetine d/t limited benefit with escitalopram. AIMS score of 0. - Per the 11/02/24 Psych note, is off of escitalopram and feels there has been modest improvement since starting duloxetine. Plan to increase duloxetine dose to 40mg daily. - Per the 11/18/24 [facility] RN note, denies pain sx. - Per the 11/30/24 Psych note, reports increased confusion with dose increase of duloxetine to 40mg daily. Dose was subsequently reduced back to 20mg daily. Plan to gradually decrease TDD of quetiapine to reduce risk of potential AEs with older age and current psych regimen. INTERVENTIONS/SUGGESTIONS: 1. Patient's medications were reviewed for significant drug interactions. * aspirin/duloxetine/trazodone: concurrent use may increase bleeding risk; monitor for signs/sx of bleeding, last Hgb/Hct WNL * clonazepam/quetiapine/trazodone : concurrent use may increase risk of CAR DUMPER OPERATOR depression; monitor vitals and for excessive sedation * duloxetine/metoprolol: concurrent use may increase metoprolol exposure; monitor vitals and for signs/sx of orthostasis * quetiapine/trazodone: concurrent use may increase risk of QTc prolongation; last EKG from February 2021 - QTc 441 ms * duloxetine/trazodone: concurrent use may increase risk of serotonin syndrome; monitor for signs/sx (neuromuscular abnormalities, tachycardia, diaphoresis, hyperthermia, N/V, diarrhea, or AMS) * rivastigmine/metoprolol: concurrent use may increase risk of bradycardia; monitor vitals * escitalopram/tamsulosin: concurrent use may increase tamsulosin exposure; monitor for signs/sx of orthostasis and ensure takes tamsulosin prior to a meal to support toleration * metoprolol,duloxetine/tamsulosi n: concurrent use may increase risk of orthostasis; monitor for signs/sx and ensure takes tamsulosin prior to a meal to support toleration 2. Patient has an estimated creatinine clearance of ~95 mL/min. LFTs WNL. Current medications are dosed appropriately for the patient's renal and hepatic function. 3. Medications reviewed to determine if regimen could contribute to falls. Several agents on 's active medication list may increase fall risk including clonazepam, duloxetine, melatonin, memantine, metoprolol, quetiapine, rivastigmine, simvastatin, tamsulosin, [...] and muscle pain/weakness given current medication regimen. Please encourage administration of tamsulosin with meals to prevent adverse effect of orthostatic hypotension. 4. All medical conditions have appropriate medication treatment. 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 - closely followed by Psychiatry (last seen 11/30/24); AIMS of 0 (11/02/24); currently on rivastigmine and max-dose memantine for dementia, on trazodone and melatonin for sleep (insomnia related to anxiety sx) - would encourage scheduled use of melatonin to support efficacy; also on duloxetine (recently started with discontinuation of escitalopram d/t limited benefit in , duloxetine dose was decreased from 40mg --> 20mg given ?increased confusion with dose increase per ), quetiapine (recent decrease in daily dose/dosing frequency as recommended by Psych to minimize risk of AEs, has not been up-to-date with refills lately - will need to clarify how he has been taking), and clonazepam (previous addition of PRN daily dose with decrease in quetiapine); underwent Neuropsych testing in Jul 2023; last MOCA (Jul 2024) * VALENTINO - unable to tolerate CPAP d/t anxiety * OA - of knee; previously on celecoxib, currently uses topical NSAID; no recent pain complaints per chart review. * dry eyes - not currently on pharmacotherapy (recently declined [facility] as sx have not been bothersome), monitor for symptoms and consider carboxymethylcellulose eye drops versus consulting specialist * constipation - on PRN polyethylene glycol and PRN docusate * malignant melanoma of lower limb - s/p complete excision in 2019, Derm visit in Apr 2020; [facility] PCP recently encouraged specialty f/u * hx of exercise-induced bronchospasm - monitor for related sx, could consider a PRN albuterol MDI (may benefit from an aerochamber) 5. All medications have an appropriate indication and supporting clinical symptoms. 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 Adherence Concerns: - medications managed by 's * quetiapine - last filled 10/06/24, 09/03/24 (30-day supply) 7. Health Maintenance: > Immunizations: * is due for the following immunizations per chart review and CDC recommendations: - RSV (pt refusal in Sep 2024) - PCV20 (pt refusal in Sep 2024) --> received PPSV23 on 08/04/20 > Bladder/Bowel: * Inquire about incontinence and severity biannually. > Bone Health: * last vit D WNL, not on supplementation * last Ca WNL, not on supplementation > Aspirin: * on aspirin for primary ASCVD prevention * hx of microscopic hematuria 8. Patient with zero refills on: simvastatin 9. Continue to review quarterly. Recommendations: - follows closely with [facility] for management of depression with psychotic features, anxiety, and LBD with behavioral disturbances. Per review of recent notes, and were encouraged to gradually reduce total daily dose of quetiapine, as tolerated, in an effort to minimize risk/potential for AEs in this . He is not up-to-date with refills of this agent suggesting that this recommendation has been implemented. Please clarify how has recently been taking this agent and alert Psych provider (Dr. Gurvinder Avalos) if how he has been taking differs from the current Rx instructions to ensure awareness by prescriber prior to next f/u and allow for reconciliation of active med list. * quetiapine - last filled 10/06/24, 09/03/24 (30-day supply) - Could consider adding a folate level to pending lab orders given dementia diagnosis. The details of this review were shared with the IDT in order to assist in creating a care plan designed to provide services focused on the health and well being of the patient. Time Spent: 60 min /erasto/ HIEU PECK [facility] Clinical Pharmacist Practitioner Signed: 12/15/2024 09:19 Receipt Acknowledged By: 12/15/2024 12:39 /erasto/ NURIS SERVIN RN [facility] floodplain manager 12/15/2024 13:32 /erasto/ IVAN VELAZQUEZ RN,MSN,[employer] SECRETARY-C [facility] NURSE PRACTITIONER 12/16/2024 ADDENDUM STATUS: COMPLETED Provider is out of the office until 12/21. He saw 11/30 and quetiapine was discussed as below. Pt has gradually decreased quetiapine to 62.5 [...] may decrease between appts (mangaged by his ). /es/ LATONYA GONZALEZ Registered Nurse Signed: 12/16/2024 09:29 12/27/2024 ADDENDUM STATUS: COMPLETED the quetiapine does was changed to 25 mg bid and 50 mg qhs for now - see my last note, this is the current cprs order /es/ GURVINDER AVALOS MD STAFF PSYCHIATRIST Signed: 12/27/2024 08:32 ARI VELAZQUEZ [facility] Dec 14, 2024 03:57 PM [facility] MEDICATION MGT NOTE: LOCAL TITLE: [facility] MEDICATION REVIEW STANDARD TITLE: [facility] MEDICATION MGT NOTE DATE OF NOTE: DEC 14, 2024@15:57 ENTRY DATE: DEC 14, 2024@15:57:42 AUTHOR: HIEU PECK COSIGNER: URGENCY: STATUS: COMPLETED [facility] MEDICATION REVIEW Has ADDENDA Song Maravilla is a 69 year-old WHITE MALE. PMH (per problem list/chart [...] hx of exercise-induced bronchospasm, polypoidal choroidal vasculopathy, insomnia, dry ARMD Alcohol (-) Tobacco (-) Allergies/ADR: PRAZOSIN (nightmares) Active Outpatient Medications Status 1) ASPIRIN 81MG EC TAB TAKE ONE TABLET BY MOUTH ONCE DAILY TO ACTIVE PREVENT STROKE/HEART ATTACK Indication: FOR MYOCARDIAL REINFARCTION PREVENTION 2) CLONAZEPAM 0.5MG TAB TAKE ONE-HALF TABLET BY MOUTH FOUR ACTIVE TIMES A DAY MAY TAKE AN ADDITIONAL ONE-HALF TABLET PER 24 HOURS NEEDED Indication: ANXIETY * has rarely been using the PRN dose 3) DICLOFENAC NA 1% TOP GEL APPLY 4 GRAMS TOPICALLY FOUR TIMES ACTIVE DAILY NEEDED - USE DOSING CARD PROVIDED IN BOX Indication: FOR OSTEOARTHRITIS 4) DOCUSATE NA 100MG CAP TAKE THREE CAPSULES BY MOUTH AT ACTIVE BEDTIME NEEDED TO SOFTEN STOOL Indication: FOR CONSTIPATION 5) DULOXETINE HCL 20MG EC CAP TAKE ONE CAPSULE BY MOUTH ONCE ACTIVE DAILY Indication: DEPRESSION/ANXIETY * NEW 6) MELATONIN 5MG CAP/TAB TAKE TWO CAPSULE/TABLET [...] TWO TABLETS AT BEDTIME Indication: FOR MOOD * CHANGE IN DOSING from 12.5mg BID plus 2.5 tabs (62.5mg) at HS 12) RIVASTIGMINE TARTRATE 3MG CAP TAKE ONE [...] NEEDED Indication: FOR INSOMNIA ASSOCIATED WITH DEPRESSION Since last review, escitalopram was discontinued. THE ABOVE MEDICATIONS WERE REVIEWED FOR: ADR, potential incompatibilities, compliance, duplication of therapy, and indications on problem list Other Rx/OTC/Herbals: none identified High Alert Meds: clonazepam, quetiapine, trazodone Look Alike/Sound Alike Meds: clonazepam, duloxetine, metoprolol succinate, quetiapine, trazodone Duplication of Therapy: none Excessive Duration: none Vitals: ======= Ht: 72 in [182.9 cm] (08/20/2021 15:11) Wt: 222 lb [100.70 kg] (11/18/2024 12:00) BMI: 30.2 BP: 120/80 (11/18/2024 12:00) HR: 80 (11/18/2024 12:00) Pain: 0 (11/18/2024 12:00) Labs: ===== SERUM Na K BUN SCr 05/17/24 137 4 18 0.91 06/03/22 140 4.4 22 1.05 eGFR (CKD-EPI 2020): above 90 (05/17/24) CrCl (C&G, SCr 0.91, adj BW): ~95 mL/min SERUM AST ALT 05/17/24 BLOOD WBC [...] In the last 90 days: - No falls/hospitalizations/infectio ns noted - Per the 10/05/24 Psych [facility], plan to taper off escitalopram and transition to duloxetine d/t limited benefit with escitalopram. AIMS score of 0. - Per the 11/02/24 Psych note, is off of escitalopram and feels there has been modest improvement since starting duloxetine. Plan to increase duloxetine dose to 40mg daily. - Per the 11/18/24 [facility] RN note, denies pain sx. - Per the 11/30/24 Psych note, reports increased confusion with dose increase of duloxetine to 40mg daily. Dose was subsequently reduced back to 20mg daily. Plan to gradually decrease TDD of quetiapine to reduce risk of potential AEs with older age and current psych regimen. INTERVENTIONS/SUGGESTIONS: 1. Patient's medications were reviewed for significant drug interactions. * aspirin/duloxetine/trazodone: concurrent use may increase bleeding risk; monitor for signs/sx of bleeding, last Hgb/Hct WNL * clonazepam/quetiapine/trazodone : concurrent use may increase risk of CAR DUMPER OPERATOR depression; monitor vitals and for excessive sedation * duloxetine/metoprolol: concurrent use may increase metoprolol exposure; monitor vitals and for signs/sx of orthostasis * quetiapine/trazodone: concurrent use may increase risk of QTc prolongation; last EKG from February 2021 - QTc 441 ms * duloxetine/trazodone: concurrent use may increase risk of serotonin syndrome; monitor for signs/sx (neuromuscular abnormalities, tachycardia, diaphoresis, hyperthermia, N/V, diarrhea, or AMS) * rivastigmine/metoprolol: concurrent use may increase risk of bradycardia; monitor vitals * escitalopram/tamsulosin: concurrent use may increase tamsulosin exposure; monitor for signs/sx of orthostasis and ensure takes tamsulosin prior to a meal to support toleration * metoprolol,duloxetine/tamsulosi n: concurrent use may increase risk of orthostasis; monitor for signs/sx and ensure takes tamsulosin prior to a meal to support toleration 2. Patient has an estimated creatinine clearance of ~95 mL/min. LFTs WNL. Current medications are dosed appropriately for the patient's renal and hepatic function. 3. Medications reviewed to determine if regimen could contribute to falls. Several agents on 's active medication list may increase fall risk including clonazepam, duloxetine, melatonin, memantine, metoprolol, quetiapine, rivastigmine, simvastatin, tamsulosin, [...] and muscle pain/weakness given current medication regimen. Please encourage administration of tamsulosin with meals to prevent adverse effect of orthostatic hypotension. 4. All medical conditions have appropriate medication treatment. 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 - closely followed by Psychiatry (last seen 11/30/24); AIMS of 0 (11/02/24); currently on rivastigmine and max-dose memantine for dementia, on trazodone and melatonin for sleep (insomnia related to anxiety sx) - would encourage scheduled use of melatonin to support efficacy; also on duloxetine (recently started with discontinuation of escitalopram d/t limited benefit in , duloxetine dose was decreased from 40mg --> 20mg given ?increased confusion with dose increase per ), quetiapine (recent decrease in daily dose/dosing frequency as recommended by Psych to minimize risk of AEs, has not been up-to-date with refills lately - will need to clarify how he has been taking), and clonazepam (previous addition of PRN daily dose with decrease in quetiapine); underwent Neuropsych testing in Jul 2023; last MOCA (Jul 2024) * VALENTINO - unable to tolerate CPAP d/t anxiety * OA - of knee; previously on celecoxib, currently uses topical NSAID; no recent pain complaints per chart review. * dry eyes - not currently on pharmacotherapy (recently declined [facility]24 as sx have not been bothersome), monitor for symptoms and consider carboxymethylcellulose eye drops versus consulting specialist * constipation - on PRN polyethylene glycol and PRN docusate * malignant melanoma of lower limb - s/p complete excision in 2019, Derm visit in Apr 2020; [facility] PCP recently encouraged specialty f/u * hx of exercise-induced bronchospasm - monitor for related sx, could consider a PRN albuterol MDI (may benefit from an aerochamber) 5. All medications have an appropriate indication and supporting clinical symptoms. 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 Adherence Concerns: - medications managed by 's * quetiapine - last filled 10/06/24, 09/03/24 (30-day supply) 7. Health Maintenance: > Immunizations: * is due for the following immunizations per chart review and CDC recommendations: - RSV (pt refusal in Sep 2024) - PCV20 (pt refusal in Sep 2024) --> received PPSV23 on 08/04/20 > Bladder/Bowel: * Inquire about incontinence and severity biannually. > Bone Health: * last vit D WNL, not on supplementation * last Ca WNL, not on supplementation > Aspirin: * on aspirin for primary ASCVD prevention * hx of microscopic hematuria 8. Patient with zero refills on: simvastatin 9. Continue to review quarterly. Recommendations: - [facility] closely [facility] for management of depression with psychotic features, anxiety, and LBD with behavioral disturbances. Per review of recent notes, and were encouraged to gradually reduce total daily dose of quetiapine, as tolerated, in an effort to minimize risk/potential for AEs in this . He is not up-to-date with refills of this agent suggesting that this recommendation has been implemented. Please clarify how amrita has recently been taking this agent and alert Psych provider (Dr. Gurvinder Avalos) if how he has been taking differs from the current Rx instructions to ensure awareness by prescriber prior to next f/u and allow for reconciliation of active med list. * quetiapine - last filled 10/06/24, 09/03/24 (30-day supply) - Could consider adding a folate level to pending lab orders given dementia diagnosis. The details of this review were shared with the IDT in order to assist in creating a care plan designed to provide services focused on the health and well being of the patient. Time Spent: 60 min /es/ HIEU PECK [facility] Clinical Pharmacist Practitioner Signed: 12/15/2024 09:19 Receipt Acknowledged By: 12/15/2024 12:39 /erasto/ NURIS SERVIN RN [facility] floodplain manager 12/15/2024 13:32 /es/ IVAN VELAZQUEZ RN,MSN,[employer] SECRETARY-C [facility] NURSE PRACTITIONER 12/15/2024 ADDENDUM STATUS: COMPLETED Please review at upcoming f/u. Future Clinic Visits 12/28/2024 14:00 [facility] SW 2 01/04/2025 15:00 [facility] PSYTR 3 Recommendations: - follows closely with [place] [facility] for management of depression with psychotic features, anxiety, and LBD with behavioral disturbances. Per review of recent notes, and were encouraged to gradually reduce total daily dose of quetiapine, as tolerated, in an effort to minimize risk/potential for AEs in this . He is not up-to-date with refills of this agent suggesting that this recommendation has been implemented. Please clarify how has recently been taking this agent and alert Psych provider (Dr. Gurvinder Avalos) if how he has been taking differs from the current Rx instructions to ensure awareness by prescriber prior to next f/u and allow for reconciliation of active med list. * quetiapine - last filled 10/06/24, 09/03/24 (30-day supply) /erasto/ IVAN VELAZQUEZ RN,MSN,[employer] SECRETARY-C [facility] NURSE PRACTITIONER Signed: 12/15/2024 13:33 Receipt Acknowledged By: 12/27/2024 08:34 /erasto/ GURVINDER AVALOS MD STAFF PSYCHIATRIST 12/16/2024 ADDENDUM STATUS: COMPLETED Provider is out of the office until 12/21. He saw 11/30 and quetiapine was discussed as below. Pt has gradually decreased quetiapine to 62.5 [...] may decrease between appts (mangaged by his ). /erasto/ LATONYA GONZALEZ Registered Nurse Signed: 12/16/2024 09:29 12/27/2024 ADDENDUM STATUS: COMPLETED the quetiapine does was changed to 25 mg bid and 50 mg qhs for now - see my last note, this is the current cprs order /erasto/ GURVINDER AVALOS MD STAFF PSYCHIATRIST Signed: 12/27/2024 08:32 [facility]
--- OUTSIDE RECORDS SUMMARY | 2024-12-28 09:00 | XMS_ITS | Encounter Summary ---
Author Name [facility] Address [address] [place] [address] Care Team Providers Care Meat Clerk Name Role Phone IVAN VELAZQUEZ Primary Care [...] (PPO) BASIC SELF Aug 21, 2013 [id number] [phone] GISELLCELIO PATIENT ANTHEM [place] FEP PREFERRED PROVIDER ORGANIZAT ION (PPO) FEP BASIC IND Aug 21, 2013 111 [id number] [phone] CELIO GARDNER PATIENT ANTHEM FEP PREFERRED PROVIDER ORGANIZAT ION (PPO) FEP BASIC SELF Aug 21, 2013 111 [id number] [phone] GISELL CELIO PATIENT BCBS FEP PREFERRED PROVIDER ORGANIZAT ION (PPO) [id number] Aug 21, 2013 111 [id number] CELIO GARDNER PATIENT BCBS YOLANDA ATTN FEP CLAIMS PREFERRED PROVIDER ORGANIZAT ION (PPO) FEP BASIC IND Aug 21, 2013 111 [id number] [phone] CELIO GARDNER PATIENT [place] FEP PREFERRED PROVIDER ORGANIZAT ION (PPO) FEP BASIC IND Aug 21, 2013 111 [id number] [phone] CELIO GARDNER PATIENT [place]BS [place] FEP PREFERRED PROVIDER ORGANIZAT ION (PPO) BASIC INDIV IDUAL Aug 21, 2013 111 [id number] [phone] CELIO JAMESON PATIENT [place]BS OF [place] FEP PREFERRED PROVIDER ORGANIZAT ION (PPO) BASIC SELF Aug 21, 2013 111 [id number] CELIO GARDNER PATIENT [place] FEP PREFERRED PROVIDER ORGANIZAT ION (PPO) BASIC SELF Aug 21, 2013 111 [id number] CELIO JAMESON PATIENT [place] FEP DENTAL DENTAL INSURANCE BASIC Aug 21, 2013 DENTAL [id number] CELIO GARDNER PATIENT [place] OF [place] FEP PREFERRED PROVIDER ORGANIZAT ION (PPO) BASIC SELF Aug 21, 2013 111 [id number] [phone] CELIO GARDNER PATIENT [place] FEDERAL PREFERRED PROVIDER ORGANIZAT ION (PPO) BASIC SELF Aug 21, 2013 111 [id number] CELIO GARDNER PATIENT [place] PREFERRED PROVIDER ORGANIZAT ION (PPO) STAND [place] FAM[facility] Y Aug 18, 2006 105 [id number] [phone] CELIO GARDNER PATIENT [employer] BCBS FEP MEDICARE SECONDARY (NO B EXC) FEHB BASIC MEDSE C Aug 21, 2013 111 [id number] [phone] CELIO GARDNER PATIENT [employer] BCBS FEP PREFERRED PROVIDER ORGANIZAT ION (PPO) FEP STAND [place] Sep 23, 2006 [id number] CELIO GARDNER PATIENT [place] FEP ([id number]) PRESCRIPT ION FEP RX Aug 21, 2013 [id number] [phone] CELIO GARDNER [place] FEP [id number] PRESCRIPT ION FEPRX Aug 21, 2013 [id number] [phone] CELIO GARDNER [place] FEP BCBS PRESCRIPT ION CAREM ARK FEPRX Aug 21, 2013 [id number] [phone] CELIO JAMESON FEP RX [id number] PRESCRIPT ION [id number] Aug 21, 2013 [id number] CELIO GARDNER [place]-F EP BCBS PRESCRIPT ION FEP Aug 21, 2013 [id number] [phone] CELIO GARDNER PATIENT MEDICARE ([employer] [facility]) MEDICARE () PART A Nov 16, 2021 PART A [id number] CELIO GARDNER PATIENT MEDICARE ([employer] [facility]) MEDICARE (M) PART B Nov 16, 2021 PART B [id number] CELIO GARDNER PATIENT MEDICARE ([employer] [facility]) MEDICARE (M) PART A Nov 16, 2021 PART A [id number] [phone] CEILO GARDNER PATIENT MEDICARE ([facility]) MEDICARE () PART B Nov 16, 2021 PART B [id number] [phone] CELIO GARDNER PATIENT MEDICARE ([facility]) MEDICARE () PART A Nov 16, 2021 PART A [id number] CELIO GARDNER PATIENT MEDICARE ([facility]) MEDICARE () PART B Nov 16, 2021 PART B [id number] [phone] CELIO GARDNER PATIENT MEDICARE ([facility]) MEDICARE () PART A Nov 16, 2021 PART A [id number] CELIO GARDNER PATIENT MEDICARE ([employer] [facility]) MEDICARE (M) PART B Nov 16, 2021 PART B [id number] CELIO GARDNER PATIENT MEDICARE (WN) MEDICARE (M) PART A Nov 16, 2021 PART A [id number] [phone] CELIO GARDNER PATIENT MEDICARE (WNR) MEDICARE (M) PART A Nov 16, 2021 PART A [id number] [phone] CELIO GARDNER PATIENT MEDICARE (WNR) MEDICARE (M) PART B Nov 16, 2021 PART B [id number] CELIO GARDNER PATIENT MEDICARE (WNR) MEDICARE (M) PART B Nov 16, 2021 PART B [id number] [phone] CELIO GARDNER PATIENT MEDICARE PART D (WNR) MEDICARE (M) PART D Aug 18, 2023 PART D [id number] [phone] CELIO GARDNER PATIENT Selected Encounter This section includes the information on record at NH for the Encounter. Date/Time Encounter Type Encounter Description Reason Provider Source December 28, 2024 02:00 PM PSYTX W PT 30 [facility]ES [facility] - IND ICD-10-CM F33.3 Major depressv disorder, recurrent, severe w psych symptoms TRESA SILVERIO Alcides Encounter Template Text not used by NH Assessments - Encounter Diagnoses This section includes the primary and secondary diagnoses documented for the Encounter. Date/Time Primary/Secondary Diagnosis Diagnosis Name Provider Source Mar 14, 2025 02:58 PM PRIMARY Major depressv disorder, recurrent, severe w psych symptoms TRESA SILVERIO STEELE Plan of Treatment: Future Appointments (+ 6 months) and Future Tests (+/- 45 days) The Plan of Treatment section includes future care activities for the patient from all [place] treatmentfacilities. This section includes future appointments and future orders which are active, pending or scheduled. Future Appointments This section includes appointments that were scheduled to occur 6 months from the date of the Encounter, up to a maximum of 20 appointments. The data comes from all [place] treatment facilities. Appointment Date/Time Appointment Type Appointme nt Facility Name January 11, 2025 03:30 PM AMBULATORY - PSYCHIATRY [facility] Feb 01, 2025 02:00 PM AMBULATORY - PSYCHIATRY [facility] Feb 15, 2025 03:00 PM AMBULATORY - PSYCHIATRY [facility] Mar 03, 2025 08:00 AM AMBULATORY - MEDICINE [facility] EMMAL VICKIE HERNANDEZ [facility] Apr 05, 2025 03:00 PM AMBULATORY - PSYCHIATRY [facility] Apr 05, 2025 04:00 PM AMBULATORY - PSYCHIATRY [facility] May 24, 2025 03:30 PM AMBULATORY - PSYCHIATRY [facility] Active, Pending, and Scheduled Orders This section includes a listing of several types of active, pending, and scheduled orders, including clinic medications orders, diagnostic test orders, procedure orders and consult orders; where the start date of the order is 45 days before the date of the Encounter or 45 days after the date of theEncounter. The data comes from all [place] treatment facilities. Test Date/Time Test Type Test Details Facility Name Feb 07, 2025 01:02 PM Consult Order [facility] Cons Cmm Operator's Choice [facility] Lab Results: +/- 30 days of the encounter This section includes the Chemistry and Hematology Lab Results on record with NH for the patient. Radiology Reports and Pathology Reports are provided separately, in subsequent sections. Lab Results This section contains the Chemistry/Hematology Results that were resulted 30 days before or 30 daysafter the date of the Encounter. Date/Time Source Result Type Result - Unit Interpretation Reference Range Specimen Type Comment Jan 21, 2025 12:25 PM STEELE RHEUMATOID FACTOR SERUM Specimen Type : SERUM No comment entered. Ordering Provider: HUMBERTO VELAZQUEZ Report Released Date/Time: January 05, 2025 01:57 PM Reporting Lab: [facility] [address] [address] Performing Lab: [facility] [address] [facility] [address] RHEUMATOID FACTOR 13 0-15 Jan 21, 2025 12:25 PM STEELE CALCIUM SERUM Sp ecimen Type: SERUM No comment entered. Ordering Provider: IVAN VELAZQUEZ Report Released Date/Time: January 05, 2025 01:57 PM Reporting Lab: [facility] [address] [facility] [address] Performing Lab: [facility] [address] [facility] [address] CALCIUM 8.8 mg/dL 8.8-10 Jan 21, 2025 12:25 PM STEELE VITAMIN D (25-OH) SERUM Specimen Type : SERUM No comment entered. Ordering Provider: IVAN VELAZQUEZ Report Released Date/Time: January 05, 2025 01:57 PM Reporting Lab: [facility] [address] [address] Performing Lab: [facility] [address] [address] VITAMIN D (25-OH) 52.1 ng/mL H 20-50 Jan 21, 2025 12:25 PM STEELE TSH SERUM Sp ecimen Type: SERUM No comment entered. Ordering Provider: IVAN VELAZQUEZ Report Released Date/Time: January 05, 2025 01:57 PM Reporting Lab: [facility] [address] Performing Lab: [facility] [address] [address] TSH 1.00 u[IU]/mL 0.35-4.94 Jan 21, 2025 12:25 PM STEELE FERRITIN SERUM Sp ecimen Type: SERUM No comment entered. Ordering Provider: IVAN VELAZQUEZ Report Released Date/Time: January 05, 2025 01:57 PM Reporting Lab: [facility] [address] Performing Lab: [facility] [address] FERRITIN 107.5 ng/mL 21.8-274.7 Jan 21, 2025 12:25 PM STEELE TOTAL TESTOSTERONE SERUM Specimen Typ e: SERUM No comment entered. Ordering Provider: IVAN VELAZQUEZ Report Released Date/Time: January 05, 2025 01:57 PM Reporting Lab: [facility] [address] Performing Lab: [facility] [address] TOTAL TESTOSTERONE 445.44 ng/dL 221-716 Jan 21, 2025 12:25 PM STEELE BASIC METABOLIC PANEL (non-fasting) SERUM Specimen Type: SERUM No comment entered. Ordering Provider: IVAN VELAZQUEZ Report Released Date/Time: January 05, 2025 01:57 PM Reporting Lab: [address] [address] Performing Lab: [address] [address] UREA NITROGEN 18 mg/dL 8-26 GLUCOSE 112 mg/dL H 65-100 SODIUM 137 mmol/L 136-145 POTASSIUM 4.0 mmol/L 3.5-5.1 CHLORIDE 105 mmol/L 98-107 CO2 22 meq/L L 23-31 CALCIUM 8.8 mg/dL 8.8-10 CREATININE, Serum 1.04 mg/dL 0.72-1.25 eGFR(CKD-EPI 2020) 78 mL/min >60 Jan 21, 2025 12:25 PM STEELE IRON & TIBC PANEL SERUM Specimen Type : SERUM No comment entered. Ordering Provider: IVAN VELAZQUEZ Report Released Date/Time: January 05, 2025 01:57 PM Reporting Lab: [address] [address] Performing Lab: [address] [address] TIBC 355 ug/dL 204-475 IRON 77 ug/dL 65-175 Transferrin Saturation 21.7 15-45 Transferrin (TRF) 269 mg/dL 180-382 Jan 21, 2025 12:25 PM STEELE SED RATE, AUTOMATED BLOOD Specimen Ty pe: BLOOD No comment entered. Ordering Provider: IVAN VELAZQUEZ Report Released Date/Time: January 05, 2025 01:57 PM Reporting Lab: [address] [address] Performing Lab: [address] [address] SED RATE, AUTOMATED 12 mm/h 0-20 Jan 21, 2025 12:25 PM STEELE CRP WR,INFLAMMATION SERUM Specimen Ty pe: SERUM No comment entered. Ordering Provider: IVAN VELAZQUEZ Report Released Date/Time: January 05, 2025 01:57 PM Reporting Lab: [address] [address] Performing Lab: [facility] [address] [facility] [address] CRP WR,INFLAMMATION <3.0 mg/L 0.0-7.9 Jan 21, 2025 12:25 PM STEELE CBC AND DIFF (AUTO) BLOOD Specimen Ty pe: BLOOD No comment entered. Ordering Provider: IVAN VELAZQUEZ Report Released Date/Time: January 05, 2025 01:57 PM Reporting Lab: [facility] [address] [address] Performing [facility]: [facility] [address] [address] WBC 7.04 10*3/uL 4.50-11.00 RBC 5.39 10*6/uL 4.23-5.66 HGB 15.4 g/dL 12.8-17 HCT 45.0 39.2-50.4 MCV 83.5 fL 82-99 MCHC 34.2 g/dL 30.8-35.1 PLT 228 10*3/uL 140-360 MPV 9.3 fL 9.2-12.4 RDW-CV 13.1 12.0-16.0 MONO, ABS 0.56 10*3/uL 0.30-1.10 MCH 28.6 pg 26.2-32.6 NEUT % 57.9 43.7-75.8 LYMPH % 31.4 14.0-42.3 MONO % 8.0 5.1-13.7 EOS % 1.8 0.4-6.8 BASO % 0.6 0.1-2.0 NEUT, ABS 4.08 10*3/uL 2.20-7.60 LYMPH, ABS 2.21 10*3/uL 1.00-3.20 EOS, ABS 0.13 10*3/uL 0.03-0.44 BASO, ABS 0.04 10*3/uL 0.01-0.13 IMMATURE GRAN % 0.3 0.0-0.7 IMMATURE GRAN, ABS 0.02 10*3/uL 0.00-0.0 6 NRBC % 0.0 0.0-0.0 NRBC, ABS 0.00 10*3/uL 0.00-0.00 Advance Directives: All historical and current Section Date Range: From patient's date of to the date document was created. This section includes ALL of a patient's completed or amended [place] Advance and Rescinded Directives. The entries below indicate that a directive exists for the patient, but an actual copy is not included with this document. The data comes from all [place] facilities. Date Advance Directives Provider Source Apr 08, 2024 ADVANCE DIRECTIVE GILDARDO,LISA NH CNT RL WSN [facility] Sep 19, 2021 GOALS & PREFERENCES TO INFORM LIFE-SUSTAINING TREATMENT PLAN [facility] Sep 19, 2020 ADVANCE DIRECTIVE KAYDENALANA ROSALINO [facility] CN [facility] Encounter Notes: All associated encounter notes This section contains the clinical notes associated to the Encounter. Date/Time Encounter Note(s) Provider Source December 28, 2024 02:00 PM SOCIAL WORK NOTE: LOCAL TITLE: SOCIAL WORK NOTE STANDARD TITLE: SOCIAL WORK NOTE DATE OF NOTE: DECEMBER 28, 2024@14:00 ENTRY DATE: DECEMBER 28, 2024@14:37:07 AUTHOR: TRESA SILVERIO EXP COSIGNER: URGENCY: STATUS: COMPLETED INFORMED CONSENT REVIEWED: At beginning of session reviewed rights and limits of confidentiality, mandatory reporting situations, duty to warn and protect, Agosto Warning, (if treatment team finds patient to be an acute danger to himself or others, that this information could be relayed to a court of law and presented to a breaker oiler), and DOD access for active duty service members. Provided Suicide Prevention Hotline number, and other contact numbers as necessary. 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 SESSION FOCUS: Met with face to face for individual counseling. Jerry was accompanied by his Dennise. expressed that his anxiety was overwhelming today and he would like to go. Dennise told him they had agreed on staying for 20 minutes. shared that he did not like his new manager progressive care. He is suspicious of her around his medication and she is dirty. Dennise is trying to find someone else. Jerry had a birthday libertarian recently with his family. He stated there were too many people. Asked if he felt content and calmer at home. He stated not really. Dennise stated what we see now is how he acts most of the day. He admits he does not like being so anxious but can't calm down. continually apologizes for being so anxious. He is assured there is no need to apologize. INTERVENTIONS: Psychotherapeutic Interventions: NE; Reflective listening and support ASSESSMENT: BRIEF ASSESSMENT OF MENTAL STATUS: 1. Appearance (grooming, attire, apparent age) within normal limits: Yes 2. Thought content was organized and goal directed: Yes 3. Speech was coherent and unimpaired: Yes 4. Affect was appropriate and unremarkable: Yes 5. Demeanor was calm, with no signs of agitation or restlessness: No restless 6. Sleep was largely unimpaired and restful: Yes 7. No evidence of psychosis (hallucinations or delusions): Yes 8. Mood was normal: Yes Other Observations: RISK ASSESSMENT: Denies current suicidal ideation PLAN FOR FOLLOW-UP: Next session planned for: 01/25/25 at 2pm /erasto/ MIL TAM [facility] Signed: 12/28/2024 14:45 TRESA SILVERIOFIELD
--- OUTSIDE RECORDS SUMMARY | 2025-01-11 10:30 | XMS_ITS | Encounter Summary ---
Author Name [facility] [facility] [place] [facility] [place] [facility] [place] Address [address] [place] [address] Care Team Providers Care Hospital Laboratory Technician Name Role Phone IVAN CHERRY Primary Care [...] (PPO) BASIC SELF Aug 21, 2013 111 [id number] [phone] GISELL CELIO PATIENT ANTHE[place] F[place] PREFERRED PROVIDER ORGANIZAT ION (PPO) FEP BASIC IND Aug 21, 2013 111 [id number] [phone] CELIO GARDNER PATIENT ANTHEM FEP PREFERRED PROVIDER ORGANIZAT ION (PPO) FEP BASIC SELF Aug 21, 2013 111 [id number] [phone] EricHONEYELVIACELIO BARAHONA PATIENT BCBS FEP PREFERRED PROVIDER ORGANIZAT ION (PPO) [id number] Aug 21, 2013 111 [id number] CELIO GARDNER PATIENT BCBS YOLANDA ATTN FEP CLAIMS PREFERRED PROVIDER ORGANIZAT ION (PPO) FEP BASIC IND Aug 21, 2013 111 [id number] [phone] CELIO GARDNER PATIENT [place]BS [place] FEP PREFERRED PROVIDER ORGANIZAT ION (PPO) FEP BASIC IND Aug 21, 2013 111 [id number] [phone] CELIO GARDNER PATIENT [place]BS [place] FEP PREFERRED PROVIDER ORGANIZAT ION (PPO) BASIC INDIV IDUAL Aug 21, 2013 111 [id number] [phone] CELIO JAMESON PATIENT [place] OF [place] FEP PREFERRED PROVIDER ORGANIZAT ION (PPO) BASIC SELF Aug 21, 2013 111 [id number] CELIO GARDNER PATIENT [place] PREFERRED PROVIDER ORGANIZAT ION (PPO) BASIC SELF Aug 21, 2013 111 [id number] CELIO JAMESON PATIENT [place] FEP DENTAL DENTAL INSURANCE BASIC Aug 21, 2013 DENTAL [id number] [phone] CELIO GARDNER PATIENT [place] FEP PREFERRED PROVIDER ORGANIZAT ION (PPO) BASIC SELF Aug 21, 2013 111 [id number] CELIO GARDNER PATIENT [place] FEDERAL PREFERRED PROVIDER ORGANIZAT ION (PPO) BASIC SELF Aug 21, 2013 111 [id number] CELIO GARDNER PATIENT [place] FED[place] PREFERRED PROVIDER ORGANIZAT ION (PPO) STAND MAGDALENA FAMIL Y Aug 18, 2006 105 [id number] CELIO GARDNER PATIENT KEHINDEFIRST BCBS FEP MEDICARE SECONDARY (NO B EXC) FEHB BASIC MEDSE C Aug 21, 2013 111 [id number] [phone] CELIO GARDNER PATIENT CAREFIRST BCBS FEP PREFERRED PROVIDER ORGANIZAT ION (PPO) FEP STAND MAG[place] Sep 23, 2006 [id number] CELIO GARDNER PATIENT [place] FEP ([id number]) PRESCRIPT ION FEP RX Aug 21, 2013 [id number] [phone] CELIO GARDNER [place] FEP [id number] PRESCRIPT ION FEPRX Aug 21, 2013 [id number] [phone] CELIO GARDNER [place] FEP BCBS PRESCRIPT ION CAREAde ARK FEPRX Aug 21, 2013 [id number] [phone] CELIO JAMESON FEP RX [id number] PRESCRIPT ION [id number] Aug 21, 2013 [id number] [phone] CELIO GARDNER CAREMARK-F EP BCBS PRESCRIPT ION FEP Aug 21, 2013 [id number] CELIO GARDNER PATIENT MEDICARE ([facility]) MEDICARE (M) PART A Nov 16, 2021 PART A [id number] [phone] CELIO GARDNER PATIENT MEDICARE ([facility]) MEDICARE (M) PART B Nov 16, 2021 PART B [id number] CELIO GARDNER PATIENT MEDICARE ([facility]) MEDICARE (M) PART A Nov 16, 2021 PART A [id number] [phone] CELIO GARDNER PATIENT MEDICARE ([facility]) MEDICARE (M) PART B Nov 16, 2021 PART B [id number] CELIO GARDNER PATIENT MEDICARE ([facility]) MEDICARE (M) PART A Nov 16, 2021 PART A [id number] CELIO GARDNER PATIENT MEDICARE ([facility]) MEDICARE (M) PART B Nov 16, 2021 PART B [id number] CELIO GARDNER PATIENT MEDICARE ([facility]) MEDICARE (M) PART A Nov 16, 2021 PART A [id number] CELIO GARDNER PATIENT MEDICARE ([facility]) MEDICARE (M) PART B Nov 16, 2021 PART B [id number] [phone] CELIO GARDNER PATIENT MEDICARE ([facility]) MEDICARE (M) PART A Nov 16, 2021 PART A [id number] [phone] CELIO GARDNER PATIENT MEDICARE (WNR) MEDICARE (M) PART B Nov 16, 2021 PART B [id number] CELIO GARDNER PATIENT MEDICARE (WNR) MEDICARE (M) PART A Nov 16, 2021 PART A [id number] CELIO GARDNER PATIENT MEDICARE (WNR) MEDICARE (M) PART B Nov 16, 2021 PART B [id number] CELIO GARDNER PATIENT MEDICARE PART D (WNR) MEDICARE (M) PART D Aug 18, 2023 PART D [id number] [phone] CELIO GARDNER PATIENT Selected Encounter This section includes the information on record at [place] for the Encounter. Date/Time Encounter Type Encounter Description Reason Provider Source January 11, 2025 03:30 PM OFFICE O/P EST HI 40 [facility] - IND ICD-10-CM F33.3 Major depressv disorder, recurrent, severe w psych symptoms VIGNESH LLAMAS Alcides Encounter Template Text not used by [place] Assessments - Encounter Diagnoses This section includes the primary and secondary diagnoses documented for the Encounter. Date/Time Primary/Secondary Diagnosis Diagnosis Name Provider Source Apr 20, 2025 10:58 AM PRIMARY Major depressv disorder, recurrent, severe w psych symptoms GURVINDER LLAMAS HARJEET Plan of Treatment: Future Appointments (+ 6 months) and Future Tests (+/- 45 days) The Plan of Treatment section includes future care activities for the patient from [facility] [place] [facility] This section includes future appointments and future orders which are active, pending or scheduled. Future Appointments This section includes appointments that were scheduled to occur 6 months from the date of the Encounter, up to a maximum of 20 appointments. The data comes from all [place] treatment facilities. Appointment Date/Time Appointment Type Appointme nt Facility Name Feb 01, 2025 02:00 PM AMBULATORY - PSYCHIATRY [facility] Feb 15, 2025 03:00 PM AMBULATORY - PSYCHIATRY [facility] Mar 03, 2025 08:00 AM AMBULATORY - [place]ICINE [place] [facility] [facility] Apr 05, 2025 03:00 PM AMBULATORY - PSYCHIATRY [facility] Apr 05, 2025 04:00 PM AMBULATORY - PSYCHIATRY [facility] May 24, 2025 03:30 PM AMBULATORY - PSYCHIATRY [facility] Jul 05, 2025 03:00 PM AMBULATORY - MEDICINE [facility] NTRL TRN [facility] Jul 05, 2025 03:30 PM AMBULATORY - PSYCHIATRY [facility] Active, Pending, and Scheduled Orders This section includes a listing of several types of active, pending, and scheduled orders, including clinic medications orders, diagnostic test orders, procedure orders and consult orders; where the start date of the order is 45 days before the date of the Encounter or 45 days after the date of theEncounter. The data comes from all [place] treatment facilities. Test Date/Time Test Type Test Details Facility Name Feb 07, 2025 01:02 PM Consult Order [facility] NON-SKILLED HOME HEALTH AIDE Cons Director Economic's Choice [facility] Lab Results: +/- 30 days of the encounter This section includes the Chemistry and Hematology Lab Results on record with [place] for the patient. Radiology Reports and Pathology Reports are provided separately, in subsequent sections. Lab Results This section contains the Chemistry/Hematology Results that were resulted 30 days before or 30 daysafter the date of the Encounter. Date/Time Source Result Type Result - Unit Interpretation Reference Range Specimen Type Comment Jan 21, 2025 12:25 PM [place] RHEUMATOID FACTOR SERUM Specimen Type : SERUM No comment entered. Ordering Provider: HUMBERTO CHERRY Report Released Date/Time: January 05, 2025 01:57 PM Reporting Lab: [facility] [address] [facility] [address] Performing Lab: [facility] [address] [address] RHEUMATOID FACTOR 13 0-15 Jan 21, 2025 12:25 PM [place] CALCIUM SERUM Sp ecimen Type: SERUM No comment entered. Ordering Provider: IVAN CHERRY Report Released Date/Time: January 05, 2025 01:57 PM Reporting Lab: [place] [facility] [address] [facility] [address] Performing Lab: [facility] [address] [facility] [address] CALCIUM 8.8 mg/dL 8.8-10 Jan 21, 2025 12:25 PM [place] VITAMIN D (25-OH) SERUM Specimen Type : SERUM No comment entered. Ordering Provider: IVAN CHERRY Report Released Date/Time: January 05, 2025 01:57 PM Reporting Lab: [facility] [address] [address] Performing Lab: [facility] [address] [address] VITAMIN D (25-OH) 52.1 ng/mL H 20-50 Jan 21, 2025 12:25 PM [place] TSH SERUM Sp ecimen Type: SERUM No comment entered. Ordering Provider: IVAN CHERRY Report Released Date/Time: January 05, 2025 01:57 PM Reporting Lab: [facility] [address] [address] Performing Lab: [facility] [address] [address] TSH 1.00 u[IU]/mL 0.35-4.94 Jan 21, 2025 12:25 PM [place] FERRITIN SERUM Sp ecimen Type: SERUM No comment entered. Ordering Provider: IVAN CHERRY Report Released Date/Time: January 05, 2025 01:57 PM Reporting Lab: [facility] [address] [address] Performing Lab: [facility] [address] [address] FERRITIN 107.5 ng/mL 21.8-274.7 Jan 21, 2025 12:25 PM [place] IRON & TIBC PANEL SERUM Specimen Type : SERUM No comment entered. Ordering Provider: IVAN CHERRY Report Released Date/Time: January 05, 2025 01:57 PM Reporting Lab: [facility]USE[address] [address] Performing Lab: [facility]USE[address] [address] TIBC 355 ug/dL 204-475 IRON 77 ug/dL 65-175 Transferrin Saturation 21.7 15-45 Transferrin (TRF) 269 mg/dL 180-382 Jan 21, 2025 12:25 PM [place] BASIC METABOLIC PANEL (non-fasting) SERUM Specimen Type: SERUM No comment entered. Ordering Provider: IVAN CHERRY Report Released Date/Time: January 05, 2025 01:57 PM Reporting Lab: [address] [address] Performing Lab: [address] [address] UREA NITROGEN 18 mg/dL 8-26 GLUCOSE 112 mg/dL H 65-100 SODIUM 137 mmol/L 136-145 POTASSIUM 4.0 mmol/L 3.5-5.1 CHLORIDE 105 mmol/L 98-107 CO2 22 meq/L L 23-31 CALCIUM 8.8 mg/dL 8.8-10 CREATININE, Serum 1.04 mg/dL 0.72-1.25 eGFR(CKD-EPI 2020) 78 mL/min >60 Jan 21, 2025 12:25 PM [place] TOTAL TESTOSTERONE SERUM Specimen Typ e: SERUM No comment entered. Ordering Provider: IVAN CHERRY Report Released Date/Time: January 05, 2025 01:57 PM Reporting Lab: [address] [address] Performing Lab: [address] [address] TOTAL TESTOSTERONE 445.44 ng/dL 221-716 Jan 21, 2025 12:25 PM [place] CRP WR,INFLAMMATION SERUM Specimen Ty pe: SERUM No comment entered. Ordering Provider: IVAN CHERRY Report Released Date/Time: January 05, 2025 01:57 PM Reporting Lab: [address] [address] Performing Lab: [address] [address] CRP WR,INFLAMMATION <3.0 mg/L 0.0-7.9 Jan 21, 2025 12:25 PM [place] SED RATE, AUTOMATED BLOOD Specimen Ty pe: BLOOD No comment entered. Ordering Provider: IVAN CHERRY Report Released Date/Time: January 05, 2025 01:57 PM Reporting Lab: [facility] [address] [facility] [address] Performing Lab: [address] [address] SED RATE, AUTOMATED 12 mm/h 0-20 Jan 21, 2025 12:25 PM [place] CBC AND DIFF (AUTO) BLOOD Specimen Ty pe: BLOOD No comment entered. Ordering Provider: IVAN CHERRY Report Released Date/Time: January 05, 2025 01:57 PM Reporting Lab: [facility] [address] [facility] [address] Performing Lab: [address] [address] WBC 7.04 10*3/uL 4.50-11.00 RBC 5.39 10*6/uL [...] ALL of a patient's completed or amended [place] Advance and Rescinded Directives. The entries below indicate that a directive exists for the patient, but an actual copy is not included with this document. The data comes from all [place] facilities. Date Advance Directives Provider Source Apr 08, 2024 ADVANCE DIRECTIVE LATONYA EWING [place] CNT RL [place] [facility] Sep 19, 2021 GOALS & PREFERENCES TO INFORM LIFE-SUSTAINING TREATMENT PLAN NESTOR VIVASH Ade [place] CNTRL [place] [facility] Sep 19, 2020 ADVANCE DIRECTIVE TOBINCHRISTIANAEVELYNALANA JERRY [place] CN TRL WSN [facility] Encounter Notes: All associated encounter notes This section contains the clinical notes associated to the Encounter. Date/Time Encounter Note(s) Provider Source January 11, 2025 06:29 PM ACCOUNTING OF DISC LOSURES NOTE: LOCAL TITLE: STATE PRESCRIPTION DRUG MONITORING PROGRAM STANDARD TITLE: ACCOUNTING OF DISCLOSURES NOTE DATE OF NOTE: JANUARY 11, 2025@18:29:04 ENTRY DATE: JANUARY 11, 2025@18:29:04 AUTHOR: GURVINDER LLAMAS EXP COSIGNER: URGENCY: STATUS: COMPLETED This PDMP query was submitted by Gurvinder Llamas MD. The clinical justification for this PDMP query is to review controlled substances prescribed outside of the [facility], and any additional information that may become available, as an important component of standard clinical care, and in accordance with [facility] policy. Patient information was shared with the PDMP [place]. No prescription(s) for controlled substances outside the [facility] were found in the last 90 days. /erasto/ GURVINDER LLAMAS MD STAFF PSYCHIATRIST Signed: 01/11/2025 18:35 GURVINDER LLAMAS [place] January 11, 2025 04:01 PM PSYCHIATRY NOTE: LOCAL TITLE: PSYCHIATRY NOTE STANDARD TITLE: PSYCHIATRY NOTE DATE OF NOTE: JANUARY 11, 2025@16:01 ENTRY DATE: JANUARY 11, 2025@16:02:01 AUTHOR: GURVINDER LLAMAS EXP COSIGNER: URGENCY: STATUS: COMPLETED PSYCHIATRY NOTE Has ADDENDA 45 min for encounter, including chart review, interview, charting chart reviewed Patient seen with his , Dennise Ongoing depressed mood and anxiety - no change today. Affect remains blunted. No PI or delusions presented Denied AHs and VHs. More disorganized, again processing of info slower. Again paucity of content noted. Denies SI and violent ideation. Cognitive exam seems to be notable for more memory problems and processing difficulties. MOCA 15/30 in 07/2024 Speech again has relatively long response latency, slow responses, limited content. Sleep remains good Dennise reports pt sometimes better in the evenings w less anxiety As noted in previous appts -- in general the patient has been very reluctant to decrease medication/doses (of klonopin [...] to try to minimize possible side effects. Pt did not do well with cymbalta - changed back to lexapro, see my prior note Denies current psych med side effects; no daytime sedation; reports med compliance -- patient's manages medications as noted before, no h/o alcohol and drug abuse Patient's organizes his care. She is very supportive. Patient now resides in his own residence, with 24-hour supervision arranged by family wt 198 lb 12/2024 at home; VS ok in chart Active problems - [...] Hypofunction 19. Benign prostatic hyperplasia (SNOMED CT 814526612) 20. Impaired Fasting Glucose 21. Exercise induced bronchospasm (SNOMED CT 470363277) 22. Hyperlipidemia (SNOMED CT 41401883) Active Outpatient Medications (including Supplies): Active Outpatient Medications Status 1) ASPIRIN 81MG EC TAB TAKE ONE TABLET BY MOUTH ONCE DAILY TO ACTIVE PREVENT STROKE/HEART ATTACK Indication: FOR MYOCARDIAL REINFARCTION PREVENTION 2) CARBIDOPA 25/LEVODOPA 100MG TAB TAKE 1 TABLET BY MOUTH TWICE ACTIVE DAILY FOR 3 DAYS, THEN TAKE 1 TABLET THREE TIMES A DAY TOLERATED 3) CLONAZEPAM 0.5MG TAB TAKE ONE-HALF TABLET BY MOUTH FOUR ACTIVE TIMES A DAY MAY TAKE AN ADDITIONAL ONE-HALF TABLET PER 24 HOURS NEEDED Indication: ANXIETY 4) DICLOFENAC NA 1% TOP GEL APPLY 4 GRAMS TOPICALLY FOUR TIMES ACTIVE DAILY NEEDED - USE DOSING CARD PROVIDED IN BOX Indication: FOR OSTEOARTHRITIS 5) DOCUSATE NA 100MG CAP TAKE THREE CAPSULES BY MOUTH AT ACTIVE BEDTIME NEEDED TO SOFTEN STOOL Indication: FOR CONSTIPATION 6) ESCITALOPRAM OXALATE 5MG TAB TAKE ONE-HALF TABLET BY MOUTH ACTIVE ONCE DAILY FOR MOOD/DEPRESSION Indication: FOR MAJOR [...] CONSTIPATION 12) QUETIAPINE FUMARATE 25MG TAB TAKE ONE TABLET BY MOUTH EVERY ACTIVE MORNING AND TAKE ONE TABLET MID-DAY AND TAKE TWO TABLETS AT BEDTIME Indication: MOOD/ANXIETY 13) RIVASTIGMINE TARTRATE 3MG CAP TAKE ONE CAPSULE BY MOUTH ACTIVE TWICE DAILY Indication: FOR DEMENTIA 14) SIMVASTATIN 40MG TAB TAKE ONE TABLET BY MOUTH AT BEDTIME FOR ACTIVE (S) CHOLESTEROL Indication: FOR HIGH CHOLESTEROL 15) TAMSULOSIN HCL 0.4MG CAP TAKE TWO CAPSULES BY MOUTH AT ACTIVE (S) BEDTIME Indication: FOR ENLARGED PROSTATE 16) TRAZODONE HCL 100MG TAB TAKE TWO TABLETS [...] dose doxepin was not helpful for insomnia [place] -- not tolerate due to confusion wellbutrin [...] tolerated depakote -- no clear benefit lexapro --in retrospect, probably partial benefit at lower doses Cymbalta --did not tolerate, possible increased confusion 2019 -- not help ECT 04/2020 -- severe confusion IMP: Major depression, recurrent -- severe -- with ruminative quality (w h/o psychotic features) Major neurocognitive do -- sees neurology outside [place] - unspecified neurodegenerative process considered likely - [...] of pt's safety is supervision by /family/assistants We have talked re elective inpt admission to [facility] for assessment and medication adjustment, but patient has repeatedly strongly declined this, he is not committable therapy with [facility] as noted before, neuropsych testing -- see results in [facility] CONTINUE NAMENDA 10 MG TWICE DAILY for dementia. CONTINUE RIVASTIGMINE 3 MG TWICE DAILY, for dementia, well-tolerated, and pt had taken lower dose for about a wk with increased cognitive problems noted by , the this dose resumed Noted duloxetine was discontinued because patient did not tolerate appear to be, confused with it. LEXAPRO PREVIOUSLY RESUMED,INCREASE FROM 2.5 TO 5 MG DAILY - of all the medications the patient has taken for depression and anxiety he seems to have had the best response to Lexapro at more modest dosing, although the responses have only been partial in terms of depression and anxiety Note that we considered nortriptyline trial, but Dr. Fisher recommended against this due to potential side effect [...] previously. Pt has gradually decreased quetiapine to 50 MG TDD. QUETIAPINE 12.5 MG AT MIDDAY AND 37.5 mg MG QHS. Continue gradual reducation as tolerated. Quetiapine may provide some reduction in anxiety/mild agitation. Quetiapine may also augment antidepressant. But we are discussing further reducing quetiapine to try to reduce potential side effect load. Patient may decrease between appts (mangaged by his ) CONTINUE CLONAZEPAM 0.25 MG TID, WITH ADDITIONAL 0.25 MG Q 24 HRS PRN ANXIETY (this is dose pt taking or less per day) (will order as 0.25 mg qid prn). Some benefit from this for anxiety and probably reasonably well-tolerated. Note that the reason for dosing a long- acting benzodiazepine like Klonopin 4 times a day is that the patient probably has some psychological benefit to more frequent dosing. The patient's will call if the patient does not tolerate clonazepam. In particular I reviewed the risk of [...] glucose Patient has transferred primary care to [facility] -- Kathy Cherry as primary care in [place] -- I have reviewed with Kathy Vieyra re pt previously See prior notes for discussions of previous neurologic evals of pt -- at [place] and [facility], suggesting Lewy Body Dementia. See Dr. Johnson's notes. But more recent evaluation by neurologist at [facility] may suggest other form of dementia. But then repeat neuropsych testing was more consistent with Lewy body dementia. But most recent neurologist, Dr. Ma started patient on Sinemet for parkinsonian findings As noted before, I previously reviewed with Dr. Vivas about potential drug interaction between rivastigmine and metoprolol, and she feels it is reasonable to prescribe rivastigmine and to monitor his heart rate periodically. I previously advised the patient's re this Return to clinic about 1-2 month or sooner through open access if needed Note that due to the complexity of this case, I have repeatedly reviewed with Dr. Barriga for his opinion/input. He agrees with assessment and plan. I have greatly appreciate his input. neurologist, Osman Ma, [facility] [phone] As noted before, note that the patient had a brain JEZ SPECT study at [facility]--10/31/2023, see my 11/02/24 note for discussion As noted previously, pt had psychiatry consult 01/15/24 at [facility] and his sent the assessment [...] with a VA or non-VA provider. /erasto/ GURVINDER LLAMAS MD STAFF PSYCHIATRIST Signed: 01/11/2025 18:35 01/11/2025 ADDENDUM STATUS: COMPLETED AIMS Testing: AIMS (Mental Health Instrument) The patient was evaluated for symptoms of tardive dyskinesia using the AIMS. Total score for items 1-7: 0 /es/ GURVINDER LLAMAS MD STAFF PSYCHIATRIST Signed: 01/11/2025 18:42 GURVINDER LLAMAS [place]
--- OUTSIDE RECORDS SUMMARY | 2025-02-01 09:00 | XMS_ITS | Encounter Summary ---
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 Name Role Phone IVAN VELAZQUEZ Primary Care [...] (PPO) BASIC SELF Aug 21, 2013 111 [id number] [phone] GISELLCELIO PATIENT ANTHEM [place] FEP PREFERRED PROVIDER ORGANIZAT ION (PPO) FEP BASIC IND Aug 21, 2013 111 [id number] [phone] CELIO GARDNER PATIENT ANTHEM FEP PREFERRED PROVIDER ORGANIZAT ION (PPO) FEP BASIC SELF Aug 21, 2013 111 [id number] [phone] GISELL CELIO PATIENT BCBS FEP PREFERRED PROVIDER ORGANIZAT ION (PPO) [id number] Aug 21, 2013 111 [id number] CELIO GARDNER PATIENT BCBS YOLANDA ATTN FEP CLAIMS PREFERRED PROVIDER ORGANIZAT ION (PPO) FEP BASIC IND Aug 21, 2013 111 [id number] [phone] CELIO GARDNER PATIENT BCBS [place] FEP PREFERRED PROVIDER ORGANIZAT ION (PPO) FEP BASIC IND Aug 21, 2013 111 [id number] [phone] CELIO GARDNER PATIENT BCBS [place] FEP PREFERRED PROVIDER ORGANIZAT ION (PPO) BASIC INDIV IDUAL Aug 21, 2013 111 [id number] [phone] CELIO JAMESON PATIENT BCBS OF [place] FEP PREFERRED PROVIDER ORGANIZAT ION (PPO) BASIC SELF Aug 21, 2013 111 [id number] [phone] CELIO GARDNER PATIENT [place] FEP PREFERRED PROVIDER ORGANIZAT ION (PPO) BASIC SELF Aug 21, 2013 111 [id number] [phone] CELIO JAMESON PATIENT [place] FEP DENTAL DENTAL INSURANCE BASIC Aug 21, 2013 DENTAL [id number] [phone] CELIO GARDNER PATIENT BCBS [place] FEP PREFERRED PROVIDER ORGANIZAT ION (PPO) BASIC SELF Aug 21, 2013 111 [id number] [phone] CELIO GARDNER PATIENT [place] OF [place] FEDERAL PREFERRED PROVIDER ORGANIZAT ION (PPO) BASIC SELF Aug 21, 2013 111 [id number] [phone] CELIO GARDNER PATIENT [place] FED[place] PREFERRED PROVIDER ORGANIZAT ION (PPO) STAND [facility] [facility] Y Aug 18, 2006 105 [id number] CELIO GARDNER PATIENT [employer] BCBS FEP MEDICARE SECONDARY (NO B EXC) FEHB BASIC MEDSE C Aug 21, 2013 111 [id number] [phone] CELIO GARDNER PATIENT [employer] BCBS FEP PREFERRED PROVIDER ORGANIZAT ION (PPO) FEP STAND [place] Sep 23, 2006 [id number] CELIO GARDNER PATIENT [employer] FEP ([id number]) PRESCRIPT ION FEP RX Aug 21, 2013 [id number] [phone] CELIO GARDNER [place] FEP [id number] PRESCRIPT ION FEPRX Aug 21, 2013 [id number] [phone] CELIO GARDNER [place] FEP BCBS PRESCRIPT ION CAREM ARK FEPRX Aug 21, 2013 [id number] [phone] [place] JAMEOSN FEP RX [id number] PRESCRIPT ION [id number] Aug 21, 2013 [id number] [phone] CELIO GARDNER [place]-F EP BCBS PRESCRIPT ION FEP Aug 21, 2013 [id number] CELIO GARDNER PATIENT MEDICARE ([facility]) MEDICARE () PART A Nov 16, 2021 PART A [id number] [phone] CELIO GARDNER PATIENT MEDICARE ([facility]) MEDICARE (M) PART B Nov 16, 2021 PART B [id number] [phone] CELIO GARDNER PATIENT MEDICARE ([facility]) MEDICARE (M) PART A Nov 16, 2021 PART A [id number] [phone] CELIO GARDNER PATIENT MEDICARE ([facility]) MEDICARE (M) PART B Nov 16, 2021 PART B [id number] [phone] CELIO GARDNER PATIENT MEDICARE ([facility]) MEDICARE () PART A Nov 16, 2021 PART A [id number] CELIO GARDNER PATIENT MEDICARE ([facility]) MEDICARE (M) PART B Nov 16, 2021 PART B [id number] [phone] CELIO GARDNER PATIENT MEDICARE ([facility]) MEDICARE () PART A Nov 16, 2021 PART A [id number] CELIO GARDNER PATIENT MEDICARE ([facility]) MEDICARE () PART B Nov 16, 2021 PART B [id number] CELIO GARDNER PATIENT MEDICARE ([facility]) MEDICARE (M) PART A Nov 16, 2021 PART A [id number] [phone] CELIO GARDNER PATIENT MEDICARE (WNR) MEDICARE (M) PART B Nov 16, 2021 PART B [id number] CELIO GARDNER PATIENT MEDICARE (WNR) MEDICARE (M) PART A Nov 16, 2021 PART A [id number] CELIO GARDNER PATIENT MEDICARE (WNR) MEDICARE (M) PART B Nov 16, 2021 PART B [id number] [phone] CELIO GARDNER PATIENT MEDICARE PART D (WNR) MEDICARE (M) PART D Aug 18, 2023 PART D [id number] [phone] CELIO GARDNER PATIENT Selected Encounter This section includes the information on record at [place] for the Encounter. Date/Time Encounter Type Encounter Description Reason Provider Source Feb 01, 2025 02:00 PM PSYTX W PT [facility] - IND ICD-10-CM F33.3 Major depressv disorder, recurrent, severe w psych symptoms TRESA SILVERIO Alcides Encounter Template Text not used by [place] Assessments - Encounter Diagnoses This section includes the primary and secondary diagnoses documented for the Encounter. Date/Time Primary/Secondary Diagnosis Diagnosis Name Provider Source Apr 28, 2025 04:13 PM PRIMARY Major depressv disorder, recurrent, severe w psych symptoms TRESA SILVERIO [place] Plan of Treatment: Future Appointments (+ 6 months) and Future Tests (+/- 45 days) The Plan of Treatment section includes future care activities for the patient from all [place] treatmentfacilities. This section includes future appointments and future orders which are active, pending or scheduled. Future Appointments This section includes appointments that were scheduled to occur 6 months from the date of the Encounter, up to a maximum of 20 appointments. The data comes from all [place] treatment facilities. Appointment Date/Time Appointment Type Appointme nt Facility Name Feb 15, 2025 03:00 PM AMBULATORY - PSYCHIATRY [facility] Mar 03, 2025 08:00 AM AMBULATORY - MEDICINE [place] [facility] Apr 05, 2025 03:00 PM AMBULATORY - PSYCHIATRY [facility] Apr 05, 2025 04:00 PM AMBULATORY - PSYCHIATRY [facility] May 24, 2025 03:30 PM AMBULATORY - PSYCHIATRY [facility] Jul 05, 2025 03:00 PM AMBULATORY - MEDICINE [place] [facility] [facility] Jul 05, 2025 03:30 PM AMBULATORY - PSYCHIATRY [facility] Jul 22, 2025 09:45 AM AMBULATORY - NONE [place] [facility] [place] [facility] Jul 27, 2025 09:00 AM [facility] - [facility]INE [place] [facility] Active, Pending, and Scheduled Orders This section includes a listing of several types of active, pending, and scheduled orders, including clinic medications orders, diagnostic test orders, procedure orders and consult orders; where the start date of the order is 45 days before the date of the Encounter or 45 days after the date of theEncounter. The data comes from all [place] treatment facilities. Test Date/Time Test Type Test Details Facility Name Feb 07, 2025 01:02 PM Consult Order [facility] NON-SKILLED HOME HEALTH AIDE Cons Surgical Aides Teacher's Choice [facility] Lab Results: +/- 30 days of the encounter This section includes the Chemistry and Hematology Lab Results on record with [place] for the patient. Radiology Reports and Pathology Reports are provided separately, in subsequent sections. Lab Results This section contains the Chemistry/Hematology Results that were resulted 30 days before or 30 daysafter the date of the Encounter. Date/Time Source Result Type Result - Unit Interpretation Reference Range Specimen Type Comment Jan 21, 2025 12:25 PM [facility] RHEUMATOID FACTOR SERUM Specimen Type : SERUM No comment entered. Ordering Provider: HUMBERTO VELAZQUEZ Report Released Date/Time: January 05, 2025 01:57 PM Reporting Lab: [place] [facility] [place] [facility] [address] [facility] [address] Performing Lab: [place] [facility] [place] [facility] [address] [facility] [address] RHEUMATOID FACTOR 13 0-15 Jan 21, 2025 12:25 PM [place] CALCIUM SERUM Sp ecimen Type: SERUM No comment entered. Ordering Provider: IVAN VELAZQUEZ Report Released Date/Time: January 05, 2025 01:57 PM Reporting Lab: [place] [facility] [place] [address] [address] Performing Lab: [place] [facility] [place] [facility] [address] [facility] [address] CALCIUM 8.8 mg/dL 8.8-10 Jan 21, 2025 12:25 PM [facility] TSH SERUM Sp ecimen Type: SERUM No comment entered. Ordering Provider: IVAN VELAZQUEZ Report Released Date/Time: January 05, 2025 01:57 PM Reporting Lab: [facility] [address] Performing Lab: [place] [facility] [place] [address] [address] TSH 1.00 u[IU]/mL 0.35-4.94 Jan 21, 2025 12:25 PM [place] VITAMIN D (25-OH) SERUM Specimen Type : SERUM No comment entered. Ordering Provider: IVAN VELAZQUEZ Report Released Date/Time: January 05, 2025 01:57 PM Reporting Lab: [facility]TR[facility] [address] Performing Lab: [facility] TRN [facility]PITALUSETS [address] [address] VITAMIN D (25-OH) 52.1 ng/mL H 20-50 Jan 21, 2025 12:25 PM [place] FERRITIN SERUM Sp ecimen Type: SERUM No comment entered. Ordering Provider: IVAN VELAZQUEZ Report Released Date/Time: January 05, 2025 01:57 PM Reporting Lab: [facility]TR[facility]ITALUSETS [address] [address] Performing Lab: [place] [facility]ITAL[facility] [address] [address] FERRITIN 107.5 ng/mL 21.8-274.7 Jan 21, 2025 12:25 PM [facility] IRON & TIBC PANEL SERUM Specimen Type : SERUM No comment entered. Ordering Provider: IVAN VELAZQUEZ Report Released Date/Time: January 05, 2025 01:57 PM Reporting Lab: [facility]TR[facility] [address] Performing Lab: [facility]TRN [facility] [address] TIBC 355 ug/dL 204-475 IRON 77 ug/dL 65-175 Transferrin Saturation 21.7 15-45 Transferrin (TRF) 269 mg/dL 180-382 Jan 21, 2025 12:25 PM [place] BASIC METABOLIC PANEL (non-fasting) SERUM Specimen Type: SERUM No comment entered. Ordering Provider: IVAN VELAZQUEZ Report Released Date/Time: January 05, 2025 01:57 PM Reporting Lab: [address] [address] Performing Lab: [address] [address] UREA NITROGEN 18 mg/dL 8-26 GLUCOSE 112 mg/dL H 65-100 SODIUM 137 mmol/L 136-145 POTASSIUM 4.0 mmol/L 3.5-5.1 CHLORIDE 105 mmol/L 98-107 CO2 22 meq/L L 23-31 CALCIUM 8.8 mg/dL 8.8-10 CREATININE, Serum 1.04 mg/dL 0.72-1.25 eGFR(CKD-EPI 2020) 78 mL/min >60 Jan 21, 2025 12:25 PM [place] SED RATE, AUTOMATED BLOOD Specimen Ty pe: BLOOD No comment entered. Ordering Provider: IVAN VELAZQUEZ Report Released Date/Time: January 05, 2025 01:57 PM Reporting Lab: [address] [address] Performing Lab: [address] [address] SED RATE, AUTOMATED 12 mm/h 0-20 Jan 21, 2025 12:25 PM [facility] TOTAL TESTOSTERONE SERUM Specimen Typ e: SERUM No comment entered. Ordering Provider: IVAN VELAZQUEZ Report Released Date/Time: January 05, 2025 01:57 PM Reporting Lab: [address] [address] Performing Lab: [address] [address] TOTAL TESTOSTERONE 445.44 ng/dL 221-716 Jan 21, 2025 12:25 PM [place] CRP WR,INFLAMMATION SERUM Specimen Ty pe: SERUM No comment entered. Ordering Provider: IVAN VELAZQUEZ Report Released Date/Time: January 05, 2025 01:57 PM Reporting Lab: [facility] [address] [facility] [address] Performing Lab: [address] [address] CRP WR,INFLAMMATION <3.0 mg/L 0.0-7.9 Jan 21, 2025 12:25 PM [facility] CBC AND DIFF (AUTO) BLOOD Specimen Ty pe: BLOOD No comment entered. Ordering Provider: IVAN VELAZQUEZ Report Released Date/Time: January 05, 2025 01:57 PM Reporting Lab: [address] [address] Performing Lab: [address] [address] WBC 7.04 10*3/uL 4.50-11.00 RBC 5.39 10*6/uL [...] ALL of a patient's completed or amended [place] Advance and Rescinded Directives. The entries below indicate that a directive exists for the patient, but an actual copy is not included with this document. The data comes from all [place] facilities. Date Advance Directives Provider Source Apr 08, 2024 ADVANCE DIRECTIVE LATONYA EWING [place] CNT RL [facility] Sep 19, 2021 GOALS & PREFERENCES TO INFORM LIFE-SUSTAINING TREATMENT PLAN MARY VIVAS [place] [facility] Sep 19, 2020 ADVANCE DIRECTIVE ALANA MONIQUE [place] CN TRL [facility] Encounter Notes: All associated encounter notes This section contains the clinical notes associated to the Encounter. Date/Time Encounter Note(s) Provider Source Feb 01, 2025 02:00 PM SOCIAL WORK NOTE: LOCAL TITLE: SOCIAL WORK NOTE STANDARD TITLE: SOCIAL WORK NOTE DATE OF NOTE: FEB 01, 2025@14:00 ENTRY DATE: FEB 01, 2025@14:39:28 AUTHOR: TRESA SILVERIO EXP COSIGNER: URGENCY: STATUS: COMPLETED INFORMED CONSENT REVIEWED: At beginning of session reviewed rights and limits of confidentiality, mandatory reporting situations, duty to warn and protect, Agosto Warning, (if treatment team finds patient to be an acute danger to himself or others, that this information could be relayed to a court of law and presented to a tube dispatcher), and [facility] access for active duty service members. Provided Suicide Prevention Hotline number, and other contact numbers as necessary. 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 SESSION FOCUS: Met with face to face for individual counseling. [place] initially came to office without Dennise. She went to pick something up at the lab. was responsive to questions asked. He spoke about his day celebration. He stated a lot of people came over. He felt it was too much. When asked about his granddaughter he readily bragged about her. She speaks in sentences (at 2 years old) and is very smart. We spoke about him going outside to walk or sit in the sun. He stated he does not want to. When asked if his house had a porch or deck that he could sit on. He stated Yes it has everything. I call it the [place]. stated he does not understand what has happened to him. He began to feel the decline after that surgery. Asked if used to like to spend time outside. He responded Are you kidding, I lived outside. We were going to move to [place]. Dennise entered session and [place] then focused on leaving. does get frustrated due to his refusal to go anywhere. Asked if she was getting support. She stated yes she is. INTERVENTIONS: Psychotherapeutic Interventions: MT; Reflective listening and support ASSESSMENT: BRIEF ASSESSMENT OF MENTAL STATUS: 1. Appearance (grooming, attire, apparent age) within normal limits: Yes 2. Thought content was organized and goal directed: Yes 3. Speech was coherent and unimpaired: Yes 4. Affect was appropriate and unremarkable: No flat affect 5. Demeanor was calm, with no signs of agitation or restlessness: No; restless 6. Sleep was largely unimpaired and restful: Yes 7. No evidence of psychosis (hallucinations or delusions): Yes 8. Mood was normal: Yes Other Observations: RISK ASSESSMENT: Denies current suicidal ideation PLAN FOR FOLLOW-UP: Next session planned for: 03/08/25 at 2pm /erasto/ MIL [facility] [employer] Signed: 02/01/2025 14:48 TRESA SILVERIO [facility]
--- OUTSIDE RECORDS SUMMARY | 2025-02-15 10:00 | XMS_ITS | Encounter Summary ---
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 Name Role Phone IVAN CHERRY Primary Care [...] (PPO) BASIC SELF Aug 21, 2013 [id number] [phone] EricMARIA ELENA CELIO PATIENT ANTHEM [place] FEP PREFERRED PROVIDER ORGANIZAT ION (PPO) FEP BASIC IND Aug 21, 2013 111 [id number] [phone] CELIO GARDNER PATIENT ANTHEM FEP PREFERRED PROVIDER ORGANIZAT ION (PPO) FEP BASIC SELF Aug 21, 2013 111 [id number] [phone] EricHONEYELVIACELIO BARAHONA PATIENT BCBS FEP PREFERRED PROVIDER ORGANIZAT ION (PPO) [id number] Aug 21, 2013 111 [id number] CELIO GARDNER PATIENT BCBS YOLANDA ATTN FEP CLAIMS PREFERRED PROVIDER ORGANIZAT ION (PPO) FEP BASIC IND Aug 21, 2013 111 [id number] [phone] CELIO GARDNER PATIENT BCBS [place] FEP PREFERRED PROVIDER ORGANIZAT ION (PPO) FEP BASIC IND Aug 21, 2013 111 [id number] [phone] CELIO GARDNER PATIENT [place]BS [place] FEP PREFERRED PROVIDER ORGANIZAT ION (PPO) BASIC INDIV IDUAL Aug 21, 2013 111 [id number] [phone] CELIO JAMESON PATIENT BCBS OF [place] FEP PREFERRED PROVIDER ORGANIZAT ION (PPO) BASIC SELF Aug 21, 2013 111 [id number] CELIO GARDNER PATIENT [place] F[place] PREFERRED PROVIDER ORGANIZAT ION (PPO) BASIC SELF Aug 21, 2013 111 [id number] CELIO JAMESON PATIENT [place] FEP DENTAL DENTAL INSURANCE BASIC Aug 21, 2013 DENTAL [id number] CELIO GARDNER PATIENT BC[place] FEP PREFERRED PROVIDER ORGANIZAT ION (PPO) BASIC SELF Aug 21, 2013 111 [id number] CELIO GARDNER PATIENT [place] FEDERAL PREFERRED PROVIDER ORGANIZAT ION (PPO) BASIC SELF Aug 21, 2013 111 [id number] CELIO GARDNER PATIENT [place] FED[place]AL PREFERRED PROVIDER ORGANIZAT ION (PPO) STAND [place] FAMIL Y Aug 18, 2006 105 [id number] [phone] CELIO GARDNER PATIENT KEHINDEFIRST BCBS FEP MEDICARE SECONDARY (NO B EXC) FEHB BASIC MEDSE C Aug 21, 2013 111 [id number] [phone] CELIO GARDNER PATIENT CAREFIRST BCBS FEP PREFERRED PROVIDER ORGANIZAT ION (PPO) FEP STAND [place] Sep 23, 2006 [id number] CELIO GARDNER PATIENT [place] FEP ([id number]) PRESCRIPT ION FEP RX Aug 21, 2013 [id number] [phone] CELIO GARDNER [place] FEP [id number] PRESCRIPT ION FEPRX Aug 21, 2013 [id number] [phone] CELIO GARDNER [place] FEP BCBS PRESCRIPT ION CAREM ARK FEPRX Aug 21, 2013 [id number] [phone] CELIO JAMESON FEP RX [id number] PRESCRIPT ION [id number] Aug 21, 2013 [id number] [phone] CELIO GARDNER CAREMARK-F EP BCBS PRESCRIPT ION FEP Aug 21, 2013 [id number] CELIO GARDNER PATIENT MEDICARE (BANNER) MEDICARE (M) PART A Nov 16, 2021 PART A [id number] [phone] CELIO GARDNER PATIENT MEDICARE ([place]ANNER) MEDICARE (M) PART B Nov 16, 2021 PART B [id number] [phone] CELIO GARDNER PATIENT MEDICARE ([place]NER) MEDICARE (M) PART A Nov 16, 2021 PART A [id number] CELIO GARDNER PATIENT MEDICARE ([place]NER) MEDICARE (M) PART B Nov 16, 2021 PART B [id number] CELIO GARDNER PATIENT MEDICARE (BANNER) MEDICARE (M) PART A Nov 16, 2021 PART A [id number] [phone] CELIO GARDNER PATIENT MEDICARE ([place]ANNER) MEDICARE (M) PART B Nov 16, 2021 PART B [id number] [phone] CELIO GARDNER PATIENT MEDICARE ([place]ANNER) MEDICARE (M) PART A Nov 16, 2021 PART A [id number] [phone] CELIO GARDNER PATIENT MEDICARE ([place]NER) MEDICARE (M) PART B Nov 16, 2021 PART B [id number] CELIO GARDNER PATIENT MEDICARE ([place]ANNER) MEDICARE (M) PART A Nov 16, 2021 PART A [id number] [phone] CELIO GARDNER PATIENT MEDICARE (WNR) MEDICARE (M) PART B Nov 16, 2021 PART B [id number] CELIO GARDNER PATIENT MEDICARE (WNR) MEDICARE (M) PART A Nov 16, 2021 PART A [id number] CELIO GARDNER PATIENT MEDICARE (WNR) MEDICARE (M) PART B Nov 16, 2021 PART B [id number] CELIO GARDNER PATIENT MEDICARE PART D (WNR) MEDICARE (M) PART D Aug 18, 2023 PART D [id number] [phone] CELIO GARDNER PATIENT Selected Encounter This section includes the information on record at [place] for the Encounter. Date/Time Encounter Type Encounter Description Reason Provider Source Feb 15, 2025 03:00 PM OFFICE O/P EST MOD 30 [facility] - IND ICD-10-CM F33.3 Major depressv disorder, recurrent, severe w psych symptoms VIGNESH LLAMAS Alcides Encounter Template Text not used by [place] Assessments - Encounter Diagnoses This section includes the primary and secondary diagnoses documented for the Encounter. Date/Time Primary/Secondary Diagnosis Diagnosis Name Provider Source Feb 15, 2025 08:09 PM PRIMARY Major depressv disorder, recurrent, severe w psych symptoms KATIE LLAMAS Feb 15, 2025 08:09 PM SECONDARY Unspecified dementia, moderate, with mood disturbance KATIE LLAMAS Plan of Treatment: Future Appointments (+ 6 months) and Future Tests (+/- 45 days) The Plan of Treatment section includes future care activities for the patient from all [place] treatmentfacilities. This section includes future appointments and future orders which are active, pending or scheduled. Future Appointments This section includes appointments that were scheduled to occur 6 months from the date of the Encounter, up to a maximum of 20 appointments. The data comes from all [place] treatment facilities. Appointment Date/Time Appointment Type Appointme nt Facility Name Mar 03, 2025 08:00 AM AMBULATORY - MEDICINE [facility] [facility] Apr 05, 2025 03:00 PM AMBULATORY - PSYCHIATRY [facility] Apr 05, 2025 04:00 PM AMBULATORY - PSYCHIATRY [facility] 07, 2025 03:30 PM AMBULATORY - PSYCHIATRY [facility] Jul 05, 2025 03:00 PM [place] [facility] Jul 05, 2025 03:30 PM AMBULATORY - PSYCHIATRY [facility] Jul 22, 2025 09:45 AM AMBULATORY - NONE [place] [facility] [place] [facility] Jul 27, 2025 09:00 AM AMBULATORY - MEDICINE [facility] Active, Pending, and Scheduled Orders This section includes a listing of several types of active, pending, and scheduled orders, including clinic medications orders, diagnostic test orders, procedure orders and consult orders; where the start date of the order is 45 days before the date of the Encounter or 45 days after the date of theEncounter. The data comes from all [place] treatment facilities. Test Date/Time Test Type Test Details Facility Name Feb 07, 2025 01:02 PM Consult Order [facility] NON-SKILLED HOME HEALTH AIDE Cons Vp [facility]'s [facility] Lab Results: +/- 30 days of the encounter This section includes the Chemistry and Hematology Lab Results on record with [place] for the patient. Radiology Reports and Pathology Reports are provided separately, in subsequent sections. Lab Results This section contains the Chemistry/Hematology Results that were resulted 30 days before or 30 daysafter the date of the Encounter. Date/Time Source Result Type Result - Unit Interpretation Reference Range Specimen Type Comment Jan 21, 2025 12:25 PM [place] RHEUMATOID FACTOR SERUM Specimen Type : SERUM No comment entered. Ordering Provider: HUMBERTO CHERRY Report Released Date/Time: January 05, 2025 01:57 PM Reporting [facility] [address] [address] Performing Lab: [facility] [address] [address] RHEUMATOID FACTOR 13 0-15 Jan 21, 2025 12:25 PM [place] CALCIUM SERUM Sp ecimen Type: SERUM No comment entered. Ordering Provider: IVAN CHERRY Report Released Date/Time: January 05, 2025 01:57 PM Reporting Lab: [facility] [address] [address] Performing Lab: [place] [address] [address] CALCIUM 8.8 mg/dL 8.8-10 Jan 21, 2025 12:25 PM [place] VITAMIN D (25-OH) SERUM Specimen Type : SERUM No comment entered. Ordering Provider: IVAN CHERRY Report Released Date/Time: January 05, 2025 01:57 PM Reporting Lab: [place] [facility] [place] [address] [address] Performing Lab: [place] [address] [address] VITAMIN D (25-OH) 52.1 ng/mL H 20-50 Jan 21, 2025 12:25 PM [place] TSH SERUM Sp ecimen Type: SERUM No comment entered. Ordering Provider: IVAN CHERRY Report Released Date/Time: January 05, 2025 01:57 PM Reporting Lab: [place] [place] [address] [address] Performing Lab: [place] [address] [address] TSH 1.00 u[IU]/mL 0.35-4.94 Jan 21, 2025 12:25 PM [place] FERRITIN SERUM Sp ecimen Type: SERUM No comment entered. Ordering Provider: IVAN CHERRY Report Released Date/Time: January 05, 2025 01:57 PM Reporting Lab: [facility] [place] [address] [address] Performing Lab: [place] [place] [address] [address] FERRITIN 107.5 ng/mL 21.8-274.7 Jan 21, 2025 12:25 PM [place] TOTAL TESTOSTERONE SERUM Specimen Typ e: SERUM No comment entered. Ordering Provider: IVAN CHERRY Report Released Date/Time: January 05, 2025 01:57 PM Reporting Lab: [place] [facility] [place] [address] [address] Performing Lab: [place] [address] [address] TOTAL TESTOSTERONE 445.44 ng/dL 221-716 Jan 21, 2025 12:25 PM [place] IRON & TIBC PANEL SERUM Specimen Type : SERUM No comment entered. Ordering Provider: IVAN CHERRY Report Released Date/Time: January 05, 2025 01:57 PM Reporting Lab: [address] [address] Performing Lab: [address] [address] TIBC 355 ug/dL 204-475 IRON 77 ug/dL 65-175 Transferrin Saturation 21.7 15-45 Transferrin (TRF) 269 mg/dL 180-382 Jan 21, 2025 12:25 PM [place] BASIC METABOLIC PANEL (non-fasting) SERUM Specimen Type: SERUM No comment entered. Ordering Provider: IVAN CHERRY Report Released Date/Time: January 05, 2025 01:57 PM Reporting Lab: [address] [address] Performing Lab: [address] [address] UREA NITROGEN 18 mg/dL 8-26 GLUCOSE 112 mg/dL H 65-100 SODIUM 137 mmol/L 136-145 POTASSIUM 4.0 mmol/L 3.5-5.1 CHLORIDE 105 mmol/L 98-107 CO2 22 meq/L L 23-31 CALCIUM 8.8 mg/dL 8.8-10 CREATININE, Serum 1.04 mg/dL 0.72-1.25 eGFR(CKD-EPI 2020) 78 mL/min >60 Jan 21, 2025 12:25 PM [place] SED RATE, AUTOMATED BLOOD Specimen Ty pe: BLOOD No comment entered. Ordering Provider: IVAN CHERRY Report Released Date/Time: January 05, 2025 01:57 PM Reporting Lab: [address] [address] Performing Lab: [address] [address] SED RATE, AUTOMATED 12 mm/h 0-20 Jan 21, 2025 12:25 PM [place] CRP WR,INFLAMMATION SERUM Specimen Ty pe: SERUM No comment entered. Ordering Provider: IVAN CHERRY Report Released Date/Time: January 05, 2025 01:57 PM Reporting Lab: [address] [address] Performing Lab: [address] [address] CRP WR,INFLAMMATION <3.0 mg/L 0.0-7.9 Jan 21, 2025 12:25 PM [place] CBC AND DIFF (AUTO) BLOOD Specimen Ty pe: BLOOD No comment entered. Ordering Provider: IVAN CHERRY Report Released Date/Time: January 05, 2025 01:57 PM Reporting Lab: [address] [address] Performing Lab: [address] [address] WBC 7.04 10*3/uL 4.50-11.00 RBC 5.39 10*6/uL [...] ALL of a patient's completed or amended [place] Advance and Rescinded Directives. The entries below indicate that a directive exists for the patient, but an actual copy is not included with this document. The data comes from all [place] facilities. Date Advance Directives Provider Source Apr 08, 2024 ADVANCE DIRECTIVE LATONYA EWING [place] [facility] Sep 19, 2021 GOALS & PREFERENCES TO INFORM LIFE-SUSTAINING TREATMENT PLAN MARY VIVAS [place] [facility] Sep 19, 2020 ADVANCE DIRECTIVE ALANA MONIQUE [place] [facility] Encounter Notes: All associated encounter notes This section contains the clinical notes associated to the Encounter. Date/Time Encounter Note(s) Provider Source Feb 15, 2025 03:06 PM PSYCHIATRY NOTE: LOCAL TITLE: PSYCHIATRY NOTE STANDARD TITLE: PSYCHIATRY NOTE DATE OF NOTE: FEB 15, 2025@15:06 ENTRY DATE: FEB 15, 2025@15:06:05 AUTHOR: KATIE LLAMAS EXP COSIGNER: URGENCY: STATUS: COMPLETED 35 min for encounter, including chart review, interview, charting chart reviewed Patient seen with his , Dennise Ongoing depressed mood and anxiety - no change today. Although movements appear a little less slowed - pt on sinemet thr neuro Affect remains blunted. No PI or delusions presented Denied AHs and VHs. More disorganized, again processing of info slower. Again paucity of content noted. Denies SI and violent ideation. Cognitive exam seems to be notable for more memory problems and processing difficulties. MOCA 15/30 in 07/2024 Speech again has relatively long response latency, slow responses, limited content. Sleep remains good Again, Dennise reports pt sometimes better in the [...] to try to minimize possible side effects. Denies current psych med side effects; no daytime sedation; reports med compliance -- patient's manages medications as noted before, no h/o alcohol and drug abuse Patient's organizes his care. She is very supportive. Patient now resides in his own residence, with 24-hour supervision arranged by family -- although pt and his are moving soon wt 198 lb 12/2024 at home; VS [...] Hypofunction 19. Benign prostatic hyperplasia (SNOMED CT 740958455) 20. Impaired Fasting Glucose 21. Exercise induced bronchospasm (SNOMED CT 827268035) 22. Hyperlipidemia (SNOMED CT 45726531) Active Outpatient Medications (including Supplies): Active Outpatient [...] ONE-HALF TABLET BY MOUTH FOUR ACTIVE TIMES DAILY NEEDED Indication: ANXIETY 4) DICLOFENAC NA 1% TOP GEL APPLY 4 GRAMS TOPICALLY FOUR TIMES ACTIVE DAILY NEEDED - USE DOSING CARD PROVIDED IN BOX Indication: FOR OSTEOARTHRITIS 5) DOCUSATE NA 100MG CAP TAKE THREE CAPSULES BY MOUTH AT ACTIVE BEDTIME NEEDED TO SOFTEN STOOL Indication: FOR CONSTIPATION 6) ESCITALOPRAM OXALATE 5MG TAB TAKE ONE TABLET [...] BY MOUTH ACTIVE ONCE DAILY AND TAKE ONE AND ONE-HALF TABLETS AT BEDTIME Indication: MOOD 13) RIVASTIGMINE TARTRATE 3MG CAP TAKE [...] dose doxepin was not helpful for insomnia [place] -- not tolerate due to confusion wellbutrin [...] Cymbalta --did not tolerate, possible increased confusion TMS 2019 -- not help ECT 04/2020 [...] of pt's safety is supervision by /family/assistants Previously talked re elective inpt admission to [facility] for assessment and medication [...] noted by , the this dose resumed INCREASE LEXAPRO TO 7.5 MG DAILY - of all the medications the patient has taken for depression and anxiety he seems to have had the best response to Lexapro at more modest dosing, although the responses have only been partial in terms of depression and anxiety -- it is reasonable to try modest increase Note that we considered nortriptyline trial, but [...] previous appointments. And tapereed off depakote previously. DECREASE QUETIAPINE TO 12.5 MG AT MIDDAY AND 25 mg MG QHS (thus, reduction of bedtime dose). Continue gradual reducation as tolerated. Quetiapine may [...] glucose Patient has transferred primary care to [facility] -- Kathy Cherry as primary care in [place] -- I have reviewed with Kathy Vieyra re pt previously See prior notes for discussions of previous neurologic evals of pt -- at [place] and [facility], suggesting Lewy Body Dementia. See Dr. Johnson's notes. But more recent evaluation by neurologist at [facility] may suggest other form of [...] greatly appreciate his input. neurologist, Osman Ma, [facility] [phone] As noted before, note that the patient had a brain JEZ SPECT study at [facility]--10/31/2023, see my 11/02/24 note for discussion As noted previously, pt had psychiatry consult 01/15/24 at [facility] and his sent the assessment [...] Review used to complete this medication reconciliation. MH AIMS Testing: AIMS (Mental Health Instrument) The patient was evaluated for symptoms of tardive dyskinesia using the AIMS. Total score for items 1-7: 0 /erasto/ KATIE LLAMAS MD STAFF PSYCHIATRIST Signed: 02/15/2025 20:09 Receipt Acknowledged By: 02/16/2025 07:14 /erasto/ Saira Fernández ADVANCED IRRIGATION TEACHER KATIE LLAMAS
--- OUTSIDE RECORDS SUMMARY | 2025-03-14 03:06 | XMS_ITS | Encounter Summary ---
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 Name Role Phone IVAN VELAZQUEZ Primary Care [...] (PPO) BASIC SELF Aug 21, 2013 111 [id number] [phone] GISELL SONG PATIENT [place]THE[place] PREFERRED PROVIDER ORGANIZAT ION (PPO) FEP BASIC IND Aug 21, 2013 111 [id number] [phone] SONG GARDNER PATIENT ANTHEM FEP PREFERRED PROVIDER ORGANIZAT ION (PPO) FEP BASIC SELF Aug 21, 2013 111 [id number] [phone] GISELL SONG PATIENT BCBS FEP PREFERRED PROVIDER ORGANIZAT ION (PPO) [id number] Aug 21, 2013 111 [id number] SONG GARDNER PATIENT BCBS YOLANDA ATTN FEP CLAIMS PREFERRED PROVIDER ORGANIZAT ION (PPO) FEP BASIC IND Aug 21, 2013 111 [id number] [phone] SONG GARDNER PATIENT [place] FEP PREFERRED PROVIDER ORGANIZAT ION (PPO) FEP BASIC IND Aug 21, 2013 111 [id number] [phone] SONG GARDNER PATIENT [place]BS [place] F[place] PREFERRED PROVIDER ORGANIZAT ION (PPO) BASIC INDIV IDUAL Aug 21, 2013 111 [id number] [phone] SONG MARAVILLA PATIENT [place] OF [place] FEP PREFERRED PROVIDER ORGANIZAT ION (PPO) BASIC SELF Aug 21, 2013 111 [id number] SONG GARDNER PATIENT [place] F[place] PREFERRED PROVIDER ORGANIZAT ION (PPO) BASIC SELF Aug 21, 2013 111 [id number] [phone] SONG MARAVILLA PATIENT [place] FEP DENTAL DENTAL INSURANCE BASIC Aug 21, 2013 DENTAL [id number] [phone] SONG GARDNER PATIENT [place] FEP PREFERRED PROVIDER ORGANIZAT ION (PPO) BASIC SELF Aug 21, 2013 111 [id number] SONG GARDNER PATIENT [place] FEDERAL PREFERRED PROVIDER ORGANIZAT ION (PPO) BASIC SELF Aug 21, 2013 111 [id number] [phone] SONG GARDNER PATIENT [place] PREFERRED PROVIDER ORGANIZAT ION (PPO) STAND [place] FAM[facility] Y Aug 18, 2006 105 [id number] [phone] SONG GARDNER PATIENT C[employer] BCBS FEP MEDICARE SECONDARY (NO B EXC) FEHB BASIC MEDSE C Aug 21, 2013 111 [id number] [phone] SONG GARDNER PATIENT [employer] BCBS FEP PREFERRED PROVIDER ORGANIZAT ION (PPO) FEP STAND [place] Sep 23, 2006 [id number] SONG GARDNER PATIENT [place] FEP ([id number]) PRESCRIPT ION FEP RX Aug 21, 2013 [id number] [phone] GARDNER, SONG PATIENT [place] FEP [id number] PRESCRIPT ION FEPRX Aug 21, 2013 [id number] [phone] SONG GARDNER CAREELIJAH FEP BCBS PRESCRIPT ION CAREM ARK FEPRX Aug 21, 2013 [id number] SONG MARAVILLA CAREELIJAH FEP RX [id number] PRESCRIPT ION [id number] Aug 21, 2013 [id number] SONG GARDNER [place]ARK-F EP BCBS PRESCRIPT ION FEP Aug 21, 2013 [id number] [phone] SONG GARDNER MEDICARE ([facility]) MEDICARE () PART A Nov 16, 2021 PART A [id number] [phone] SONG GARDNER PATIENT MEDICARE ([facility]) MEDICARE () PART B Nov 16, 2021 PART B [id number] SONG GARDNER PATIENT MEDICARE (WN) MEDICARE ) PART A Nov 16, 2021 PART A [id number] [phone] SONG GARDNER PATIENT MEDICARE ([facility]) MEDICARE () PART B Nov 16, 2021 PART B [id number] [phone] SONG GARDNER PATIENT MEDICARE (WN) MEDICARE () PART A Nov 16, 2021 PART A [id number] SONG GARDNER PATIENT MEDICARE (WN) MEDICARE () PART B Nov 16, 2021 PART B [id number] SONG GARDNER PATIENT MEDICARE (WN) MEDICARE () PART A Nov 16, 2021 PART A [id number] SONG GARDNER PATIENT MEDICARE (WN) MEDICARE () PART B Nov 16, 2021 PART B [id number] SONG GARDNER PATIENT MEDICARE (WN) MEDICARE () PART A Nov 16, 2021 PART A [id number] [phone] SONG GARDNER PATIENT MEDICARE (WNR) MEDICARE (M) PART B Nov 16, 2021 PART B [id number] [phone] SONG GARDNER PATIENT MEDICARE (WNR) MEDICARE (M) PART A Nov 16, 2021 PART A [id number] [phone] SONG GARDNER PATIENT MEDICARE (WNR) MEDICARE (M) PART B Nov 16, 2021 PART B [id number] SONG GARDNER PATIENT MEDICARE PART D (WNR) MEDICARE (M) PART D Aug 18, 2023 PART D [id number] SONG GARDNER PATIENT Selected Encounter This section includes the information on record at [place] for the Encounter. 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 This section includes future appointments and future orders which are active, pending or scheduled. Future Appointments This section includes appointments that were scheduled to occur 6 months from the date of the Encounter, up to a maximum of 20 appointments. The data comes from all [place] treatment facilities. Appointment Date/Time Appointment Type Appointme nt Facility Name Apr 05, 2025 03:00 PM AMBULATORY - PSYCHIATRY [facility] Apr 05, 2025 04:00 PM AMBULATORY - PSYCHIATRY [facility] May 24, 2025 03:30 PM AMBULATORY - PSYCHIATRY [facility] Jul 05, 2025 03:00 PM AMBULATORY - MEDICINE [facility] Jul 05, 2025 03:30 PM AMBULATORY - PSYCHIATRY [facility] Jul 22, 2025 09:45 AM AMBULATORY - NONE [facility] Jul 27, 2025 09:00 AM AMBULATORY - MEDICINE [facility] Aug 23, 2025 03:30 PM AMBULATORY - PSYCHIATRY [facility] Active, Pending, and Scheduled Orders This section includes a listing of several types of active, pending, and scheduled orders, including clinic medications orders, diagnostic test orders, procedure orders and consult orders; where the start date of the order is 45 days before the date of the Encounter or 45 days after the date of the Encounter. The data comes from all [place] treatment facilities. 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 Current Smoking Status This section includes the most current smoking, or tobacco-related health factor, from the [place] facility where the Encounter took place. Date/Time Current Smoking Status Comment Yuniel padilla Sep 17, 2021 11:00 AM VA-TOBACCO FOR[facility] Tobacco Use History This section includes a history of the smoking, or tobacco-related health factors, that were collected on or before the date of the Encounter. The data comes from the [place] facility where the Encounter took place. Date/Time Smoking Status/Tobac co Use Comment Facility Sep 17, 2021 11:00 AM VA-TOBACCO QUIT 15 YRS OR MORE [facility] Mar 01, 2020 01:30 PM VA-TOBACCO FORMER USER [facility] Mar 01, 2020 01:30 PM VA-TOBACCO QUIT 15 YRS OR MORE [facility] Jan 20, 2019 09:37 AM VA-TOBACCO NEVER USED [facility] Dec 11, 2017 05:17 PM QUIT TOBACCO USE > 7 YEARS AGO [facility] Jan 20, 2017 03:12 PM QUIT TOBACCO USE > 7 YEARS AGO [facility] January 09, 2016 08:48 AM QUIT TOBACCO USE > 7 YEARS AGO . [facility] Jun 09, 2006 05:45 PM LIFETIME NON-TOBACCO USER [facility] Aug 22, 2003 03:27 PM HISTORY OF SMOKING [facility] Aug 22, 2003 03:27 PM QUIT TOBACCO USE IN PAST YEAR [facility] Jun 24, 2003 12:01 PM CURRENT SMOKER about 1 week/so [facility] Advance Directives: All historical and current Section Date Range: From patient's date of to the date document was created. This section includes ALL of a patient's completed or amended [place] Advance and Rescinded Directives. The entries below indicate that a directive exists for the patient, but an actual copy is not included with this document. The data comes from all [place] facilities. Date Advance Directives Provider Source Apr 08, 2024 ADVANCE DIRECTIVE LATONYA EWING [facility] Sep 19, 2021 GOALS & PREFERENCES TO INFORM LIFE-SUSTAINING TREATMENT PLAN MAYR VIVAS [facility] Sep 19, 2020 ADVANCE DIRECTIVE ALANA MONIQUE [facility] Encounter Notes: All associated encounter notes This section contains the clinical notes associated to the Encounter. Date/Time Encounter Note(s) Provider Source Mar 14, 2025 08:06 AM [facility] MEDICATION MGT NOTE: LOCAL TITLE: [facility] PHARMACY MEDICATION REVIEW STANDARD TITLE: [facility] MEDICATION MGT NOTE DATE OF NOTE: MAR 14, 2025@08:06 ENTRY DATE: MAR 14, 2025@08:06:16 AUTHOR: HIEU PECK COSIGNER: URGENCY: STATUS: COMPLETED Song Maravilla is a 69 year-old WHITE [...] exercise-induced bronchospasm, polypoidal choroidal vasculopathy, insomnia, dry ARMD, parkinsonism sx Alcohol (-) Tobacco (-) Allergies/ADR: PRAZOSIN (nightmares) Active Outpatient Medications Status 1) ASPIRIN 81MG EC TAB TAKE ONE TABLET BY MOUTH ONCE DAILY TO ACTIVE PREVENT STROKE/HEART ATTACK Indication: FOR MYOCARDIAL REINFARCTION PREVENTION 2) CARBIDOPA 25/LEVODOPA 100MG TAB TAKE 1 TABLET BY MOUTH TWICE ACTIVE DAILY FOR 3 DAYS, THEN TAKE 1 TABLET THREE TIMES A DAY TOLERATED * NEW 3) CLONAZEPAM 0.5MG TAB TAKE ONE-HALF TABLET BY MOUTH FOUR ACTIVE TIMES DAILY NEEDED Indication: ANXIETY * has rarely been using the PRN dose 4) DICLOFENAC NA 1% TOP GEL APPLY 4 GRAMS TOPICALLY FOUR TIMES ACTIVE DAILY NEEDED - USE DOSING CARD PROVIDED IN BOX Indication: FOR OSTEOARTHRITIS 5) DOCUSATE NA 100MG CAP TAKE THREE CAPSULES BY MOUTH AT ACTIVE BEDTIME NEEDED TO SOFTEN STOOL Indication: FOR CONSTIPATION 6) ESCITALOPRAM OXALATE 5MG TAB TAKE ONE AND ONE-HALF TABLETS ACTIVE BY MOUTH ONCE DAILY FOR MOOD/DEPRESSION ### Indication: FOR MAJOR DEPRESSIVE DISORDER * NEW 7) MELATONIN 5MG CAP/TAB TAKE TWO CAPSULE/TABLET BY MOUTH AT ACTIVE BEDTIME NEEDED Indication: FOR INSOMNIA 8) MEMANTINE HCL 10MG TAB TAKE ONE TABLET BY MOUTH TWICE DAILY ACTIVE ### Indication: DEMENTIA 9) METOPROLOL SUCCINATE 100MG SA [...] MOUTH ACTIVE ONCE DAILY AND TAKE ONE TABLET AT BEDTIME ### Indication: MOOD * CHANGE IN PM DOSING from 50mg 13) RIVASTIGMINE TARTRATE 3MG CAP TAKE ONE CAPSULE BY MOUTH ACTIVE TWICE DAILY ### Indication: FOR DEMENTIA 14) SIMVASTATIN 40MG TAB TAKE ONE TABLET BY MOUTH AT BEDTIME FOR ACTIVE CHOLESTEROL Indication: FOR HIGH CHOLESTEROL 15) TAMSULOSIN HCL 0.4MG CAP TAKE TWO CAPSULES BY MOUTH AT ACTIVE BEDTIME Indication: FOR ENLARGED PROSTATE 16) TRAZODONE HCL 100MG TAB TAKE TWO TABLETS BY MOUTH AT BEDTIME ACTIVE NEEDED ### Indication: FOR INSOMNIA ASSOCIATED WITH DEPRESSION Since last review, duloxetine was discontinued. THE ABOVE MEDICATIONS WERE REVIEWED FOR: ADR, potential incompatibilities, compliance, duplication of therapy, and indications on problem list Other Rx/OTC/Herbals: none identified High Alert Meds: clonazepam, quetiapine, trazodone Look Alike/Sound Alike Meds: clonazepam, escitalopram, metoprolol succinate, quetiapine, trazodone Duplication of Therapy: none Excessive Duration: none Vitals: ======= Ht: 72 in [182.9 cm] (08/20/2021 15:11) Wt: 198.2 lb [89.90 kg] (01/25/2025 15:21) BMI: 26.9 BP: 118/78 (01/25/2025 15:21) HR: 82 (01/25/2025 15:21) Pain: 0 (01/25/2025 15:) Labs: ===== SERUM Na K BUN SCr 01/21/25 137 4 18 1.04 05/17/24 137 4 18 0.91 06/03/22 140 4.4 22 1.05 eGFR (CKD-EPI 2020): 78 (01/21/25) CrCl (C&G, SCr 1.04, adj BW): ~79 mL/min SERUM AST ALT 05/17/24 22 24 BLOOD WBC Hgb Hct MCV Plt 01/21/25 7.04 15.4 45 83.5 228 05/17/24 7.2 15 44.3 82.3 201 06/03/22 6.25 15 44.5 82.6 213 A1c: 5.4 % (05/17/24) TSH: 1 uIU/mL (01/21/25) 1.24 uIU/mL (05/17/24) Vit B12: 517 pg/mL (05/17/24) Folate: 8.86 ng/mL (08/25/19) Ferritin: 107.5 ng/mL (01/21/25) Tsat: 21.7 % (01/21/25) Total Testosterone: 445.44 ng/dL (01/21/25) SERUM LDL HDL TG Tot Chol 05/17/24 95 39 L 147 163 06/03/22 140 H 40 162 H 212 H Vit D: 52.1 H ng/mL (01/21/25) 44 ng/mL (10/01/21) Ca: 8.8 mg/dL (01/21/25) 9.2 mg/dL (10/01/21) Alb: 3.8 g/dL (05/17/24) ASSESSMENT: In the last 90 days: - No falls/hospitalizations/infection s noted - Per the 01/04/25 Secure Messaging note, 's father . - Was seen by [facility] on 01/06/25. Cervical X-ray was ordered. has normal ROM and denies pain so is not interested in pursuing. Carbidopa/levodopa was ordered for parkinsonism sx. Remained on BID dosing d/t intermittent diarrhea and unclear if providing any benefit. Glasco/CG were encouraged to discuss any concerns with specialist. - Per the 01/11/25 Psych note, duloxetine was discontinued and escitalopram was restarted as 's sx were better-controlled on escitalopram and felt he was more confused on duloxetine. Plan to continue on escitalopram 5mg daily at this time. Also, PM dose of quetiapine was decreased from 50mg to 37.5mg. - Per the 02/15/25 Psych note, escitalopram dose was increased from 5mg to 7.5mg daily and PM dose of quetiapine was decreased from 37.5mg to 25mg. INTERVENTIONS/SUGGESTIONS: 1. Patient's medications were reviewed for significant drug interactions. 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 SUPERVISOR depression; monitor vitals and for excessive sedation * quetiapine/escitalopram/trazodon e: concurrent use may increase risk of QTc prolongation; last EKG from February 2021 - QTc 441 ms * rivastigmine/metoprolol: concurrent use may increase risk of bradycardia; monitor vitals * escitalopram/tamsulosin: concurrent use may increase tamsulosin exposure; monitor for signs/sx of orthostasis and ensure takes tamsulosin prior to a meal to support toleration * metoprolol/tamsulosin: concurrent use may increase risk of orthostasis; monitor for signs/sx and ensure takes tamsulosin prior to a meal to support toleration * escitalopram/trazodone: concurrent use may increase risk of serotonin syndrome; monitor for signs/sx (neuromuscular abnormalities, tachycardia, diaphoresis, hyperthermia, N/V, diarrhea or AMS * escitalopram/metoprolol: concurrent use may result in increased metoprolol exposure; monitor vitals 2. Patient has an estimated creatinine clearance of ~79 mL/min. LFTs WNL. Current medications are dosed appropriately for the patient's renal and hepatic function. 3. Medications reviewed to determine if regimen could contribute to falls. 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 - closely followed by Psychiatry (last seen 02/15/25); currently on rivastigmine and max-dose memantine for dementia, on trazodone and melatonin for sleep (insomnia related to anxiety sx) - would encourage scheduled use of melatonin to support efficacy; recently restarted on escitalopram with discontinuation of duloxetine d/t concern for ?increased confusion with duloxetine and worsening in sx since stopping escitalopram, quetiapine (previous decrease in daily dose/dosing frequency as recommended by Psych to minimize risk of AEs), and clonazepam (previous addition of PRN daily dose with decrease in quetiapine); recently started on carbidopa/levodopa for parkinsonism sx of unclear origin (antipsychotic induced vs. related to dementia); underwent Neuropsych testing in Jul 2023; last MOCA (Jul 2024); AIMS of 0 (02/15/25); last TSH/vit B12/folate WNL with repeat folate level pending * VALENTINO - unable to tolerate CPAP [...] in 2019, Derm visit in Apr 2020; [facility] PCP recently encouraged specialty f/u * hx [...] simvastatin - on moderate-intensity dosing, hx of HLD; last LDL of 95 (at goal given indication for primary ASCVD prevention) with LFTs WNL; antipsychotic use may be contributing to HLD 6. Adherence Concerns: no concerns at this time - medications managed by 's 7. Health Maintenance: > Immunizations: * Amrita is due for the following immunizations per chart review and CDC recommendations: - an additional dose of the [id number] COVID-19 vaccine given older age (last received 07/27/24) - RSV (pt refusal in Sep 2024) - PCV20 (pt refusal in Sep 2024) --> received PPSV23 on 08/04/20 > Bladder/Bowel: * Inquire about incontinence and severity biannually. > Bone Health: * last vit D elevated, not on supplementation * last Ca WNL, not on supplementation > Aspirin: * on aspirin for primary ASCVD prevention * hx of microscopic hematuria 8. Patient with zero refills on: tamsulosin, carbidopa/levodopa 9. Continue to review quarterly. Recommendations: - Per chart review, amrita was seen by Neuro in December 2024 and carbidopa/levodopa was started for parkinsonism symptoms, but amrita stayed on BID dosing due to intermittent diarrhea and was unsure if the medication was providing any benefit. Please clarify how amrita has been taking as well as if he has been tolerating recently, and encourage communication with Neuro specialist, if appropriate. - Of note, amrita is due for an additional dose of the [id number] COVID-19 vaccine given older age (last received 07/27/24). Please offer during next scheduled visit if appropriate based on clinical status. The details of this review were shared with the IDT in order to assist in creating a care plan designed to provide services focused on the health and well being of the patient. Time Spent: 60 min /erasto/ HIEU PECK [facility] Clinical Pharmacist Practitioner Signed: 03/14/2025 10:33 Receipt Acknowledged By: 03/14/2025 15:05 /es/ NURIS SERVIN RN [facility] smash fixer 03/14/2025 15:46 /erasto/ DENISE HAWKINS [facility] NURSE PRACTITIONER for HIEU PETE [facility]
--- OUTSIDE RECORDS SUMMARY | 2025-03-18 10:19 | XMS_ITS ---
Author Name [facility] [facility] [place] Address [address] [place] [address] Care Team Providers Care Mail Opener Name Role Phone IVAN VELAZQUEZ Primary Care Provider Unav ailable GILDARDO, LATONYA Unavailable Unavailable CALEB ORTIZ, ALYCIA Unavailable Unavailable MENDEZ RAMAN Unavailable Unavailable TOYA, LETA Unavailable Unavailable SADIE, ADAN Unavailable Unavailable [...] (PPO) BASIC SELF Aug 21, 2013 111 [id number] [phone] GISELL CELIO PATIENT ANTHEM [place] FEP PREFERRED PROVIDER ORGANIZAT ION (PPO) FEP BASIC IND Aug 21, 2013 111 [id number] [phone] CELIO GARDNER PATIENT ANTHEM FEP PREFERRED PROVIDER ORGANIZAT ION (PPO) FEP BASIC SELF Aug 21, 2013 111 [id number] [phone] GISELL CELIO PATIENT BCBS FEP PREFERRED PROVIDER ORGANIZAT ION (PPO) [id number] Aug 21, 2013 111 [id number] CELIO GARDNER PATIENT BCBS YOLANDA ATTN FEP CLAIMS PREFERRED PROVIDER ORGANIZAT ION (PPO) FEP BASIC IND Aug 21, 2013 111 [id number] [phone] CELIO GARDNER PATIENT [place] FEP PREFERRED PROVIDER ORGANIZAT ION (PPO) FEP BASIC IND Aug 21, 2013 111 [id number] [phone] CELIO GARDNER PATIENT [place] F[place] PREFERRED PROVIDER ORGANIZAT ION (PPO) BASIC INDIV IDUAL Aug 21, 2013 111 [id number] [phone] CELIO MARAVILLA PATIENT [place] OF [place] FEP PREFERRED PROVIDER ORGANIZAT ION (PPO) BASIC SELF Aug 21, 2013 111 [id number] [phone] CELIO GARDNER PATIENT [place] F[place] PREFERRED PROVIDER ORGANIZAT ION (PPO) BASIC SELF Aug 21, 2013 111 [id number] [phone] CELIO MARAVILLA PATIENT [place] FEP DENTAL DENTAL INSURANCE BASIC Aug 21, 2013 DENTAL [id number] CELIO GARDNER PATIENT [place] OF [place] FEP PREFERRED PROVIDER ORGANIZAT ION (PPO) BASIC SELF Aug 21, 2013 111 [id number] [phone] CELIO GARDNER PATIENT [place] OF [place] FEDERAL PREFERRED PROVIDER ORGANIZAT ION (PPO) BASIC SELF Aug 21, 2013 111 [id number] CELIO GARDNER PATIENT [place] FED[place] PREFERRED PROVIDER ORGANIZAT ION (PPO) STAND [place] [facility] Y Aug 18, 2006 105 [id number] CELIO GARDNER PATIENT [employer] BCBS FEP MEDICARE SECONDARY (NO B EXC) FEHB BASIC MEDSE C Aug 21, 2013 111 [id number] [phone] CELIO GARDNER PATIENT [employer] BCBS FEP PREFERRED PROVIDER ORGANIZAT ION (PPO) FEP STAND [place] Sep 23, 2006 [id number] CELIO GARDNER [place] FEP ([id number]) PRESCRIPT ION FEP RX Aug 21, 2013 [id number] [phone] CELIO GARDNER [place] FEP [id number] PRESCRIPT ION FEPRX Aug 21, 2013 [id number] [phone] CELIO GARDNER [place] FEP BCBS PRESCRIPT ION CAREM ARK FEPRX Aug 21, 2013 [id number] CELIO MARAVILL[place] F[place] RX [id number] PRESCRIPT ION [id number] Aug 21, 2013 [id number] CELIO GARDNER [place]-F EP BCBS PRESCRIPT ION FEP Aug 21, 2013 [id number] [phone] CELIO GARDNER PATIENT MEDICARE ([facility]) MEDICARE () PART A Nov 16, 2021 PART A [id number] [phone] CELIO GARDNER PATIENT MEDICARE ([facility]) MEDICARE () PART B Nov 16, 2021 PART B [id number] [phone] CELIO GARDNER PATIENT MEDICARE ([facility]) MEDICARE () PART A Nov 16, 2021 PART A [id number] [phone] CELIO GARDNER PATIENT MEDICARE ([facility]) MEDICARE () PART B Nov 16, 2021 PART B [id number] [phone] CELIO GARDNER PATIENT MEDICARE ([facility]) MEDICARE () PART A Nov 16, 2021 PART A [id number] CELIO GARDNER PATIENT MEDICARE ([facility]) MEDICARE () PART B Nov 16, 2021 PART B [id number] CELIO GARDNER PATIENT MEDICARE (WN) MEDICARE () PART A Nov 16, 2021 PART A [id number] CELIO GARDNER PATIENT MEDICARE (WN) MEDICARE () PART B Nov 16, 2021 PART B [id number] CELIO GARDNER PATIENT MEDICARE (WNR) MEDICARE () PART A Nov 16, 2021 PART A [id number] [phone] CELIO GARDNER PATIENT MEDICARE (WNR) MEDICARE (M) PART B Nov 16, 2021 PART B [id number] CELIO GARDNER PATIENT MEDICARE (WNR) MEDICARE (M) PART A Nov 16, 2021 PART A [id number] CELIO GARDNER PATIENT MEDICARE (WNR) MEDICARE (M) PART B Nov 16, 2021 PART B [id number] CELIO GARDNER PATIENT MEDICARE PART D (WNR) MEDICARE (M) PART D Aug 18, 2023 PART D [id number] [phone] CELIO GARDNER PATIENT Selected Encounter This section includes the information on record at [place] for the Encounter. Date/Time Encounter Type Encounter Description Reason Provider Source Mar 18, 2025 03:19 PM CASE MANAGEMENT [facility] - CREDIT RISK MODELER ICD-10-CM Z65.9 Problem related to unspecified psychosocial circumstances Richar EWING IH Encounter Template Text not used by [place] Assessments - Encounter Diagnoses This section includes the primary and secondary diagnoses documented for the Encounter. Date/Time Primary/Secondary Diagnosis Diagnosis Name Provider Source Mar 21, 2025 08:06 AM PRIMARY Problem related to unspecified psychosocial circumstances Richar EWING [facility] [place] [facility] Plan of Treatment: Future Appointments (+ 6 months) and Future Tests (+/- 45 days) The Plan of Treatment section includes future care activities for the patient from all [place] treatmentfacilities. This section includes future appointments and future orders which are active, pending or scheduled. Future Appointments This section includes appointments that were scheduled to occur 6 months from the date of the Encounter, up to a maximum of 20 appointments. The data comes from all [place] treatment facilities. Appointment Date/Time Appointment Type Appointme nt Facility Name Apr 05, 2025 03:00 PM AMBULATORY - PSYCHIATRY [facility] Apr 05, 2025 04:00 PM AMBULATORY - PSYCHIATRY [facility] May 24, 2025 03:30 PM AMBULATORY - PSYCHIATRY [facility] Jul 05, 2025 03:00 PM AMBULATORY - MEDICINE [facility] Jul 05, 2025 03:30 PM AMBULATORY - PSYCHIATRY [facility] Jul 22, 2025 09:45 AM AMBULATORY - NONE [place] [facility] Jul 27, 2025 09:00 AM AMBULATORY - MEDICINE [place] [facility] Aug 23, 2025 03:30 PM AMBULATORY - PSYCHIATRY [facility] Active, Pending, and Scheduled Orders This section includes a listing of several types of active, pending, and scheduled orders, including clinic medications orders, diagnostic test orders, procedure orders and consult orders; where the start date of the order is 45 days before the date of the Encounter or 45 days after the date of theEncounter. The data comes from all [place] treatment facilities. Test Date/Time Test Type Test Details Facility Name Feb 07, 2025 01:02 PM Consult Order [facility] NON-SKILLED HOME HEALTH AIDE Cons Amf [employer] [place] [facility] Social History: Smoking Status (Most current) and Tobacco Use (All prior to encounter date) This section includes the most current, and the historical, smoking and tobacco- related health factors from the [place] facility where the Encounter took place. Current Smoking Status This section includes the most current smoking, or tobacco-related health factor, from the [place] facility where the Encounter took place. Date/Time Current Smoking Status Comment [facility] Sep 17, 2021 11:00 AM VA-TOBACCO FORMER USER [place] [facility] Tobacco Use History This section includes a history of the smoking, or tobacco-related health factors, that were collected on or before the date of the Encounter. The data comes from the [place] facility where the Encounter took place. Date/Time Smoking Status/Tobac co Use Comment Facility Sep 17, 2021 11:00 AM VA-TOBACCO QUIT 15 YRS OR MORE [facility] Mar 01, 2020 01:30 PM VA-TOBACCO FORMER USER [place] [facility] Mar 01, 2020 01:30 PM VA-TOBACCO QUIT 15 YRS OR MORE [place] [facility] Jan 20, 2019 09:37 AM VA-TOBACCO NEVER USED [place] [facility] Dec 11, 2017 05:17 PM QUIT TOBACCO USE > 7 YEARS AGO [place] [facility] Jan 20, 2017 03:12 PM QUIT TOBACCO USE > 7 YEARS AGO [facility] January 09, 2016 08:48 AM QUIT TOBACCO USE > 7 YEARS AGO . [facility] Jun 09, 2006 05:45 PM LIFETIME NON-TOBACCO USER [facility] Aug 22, 2003 03:27 PM HISTORY OF SMOKING [facility] Aug 22, 2003 03:27 PM QUIT TOBACCO USE IN PAST YEAR [facility] Jun 24, 2003 12:01 PM CURRENT SMOKER about 1 week/so [facility] Advance Directives: All historical and current Section Date Range: From patient's date of to the date document was created. This section includes ALL of a patient's completed or amended [place] Advance and Rescinded Directives. The entries below indicate that a directive exists for the patient, but an actual copy is not included with this document. The data comes from all [place] facilities. Date Advance Directives Provider Source Apr 08, [address] [facility] Sep 19, 2021 GOALS & PREFERENCES TO INFORM LIFE-SUSTAINING TREATMENT PLAN MARY VIVAS [facility] Sep 19, 2020 ADVANCE DIRECTIVE ALANA MONIQUE [facility] Encounter Notes: All associated encounter notes This section contains the clinical notes associated to the Encounter. Date/Time Encounter Note(s) Provider Source Mar 18, 2025 02:00 PM [facility] NOTE: LOCAL TITLE: [facility] SOCIAL WORK ASSESSMENT STANDARD TITLE: [facility] NOTE DATE OF NOTE: MAR 18, 2025@14:00 ENTRY DATE: MAR 18, 2025@15:19:53 AUTHOR: LATONYA EWING EXP COSIGNER: URGENCY: STATUS: COMPLETED SOCIAL WORK ASSESSMENT Eastern was seen for: [ ] Initial Review [X] Annual Review Admission Date: 03/31/24 identified by: [ ] Full Name [X] Address [ ] [ ] SSN [X] Facial Recognition Patient Demographics: [place]: [place] [address] County: [place] Marital Status: Age: 69 Mosque: UNKNOWN/NO PREFERENCE Sex: MALE Occupation: UNKNOWN Period of Service: [employer] Branch of Service: [employer] Combat: NO POW: NO Eligibility: [place] LESS THAN 50% Status: VERIFIED Means Test: NOK: Relation: Phone: , Service Connected Disabilities with % Eligibility: [place] LESS THAN 50% VERIFIED Total S/C %: 10 HEMORRHOIDS 0% S/C TRAUMATIC ARTHRITIS 10% S/C Other persons present: Significant other Dennise Length of visit: 30 minutes CURRENT LIVING ARRANGEMENTS [X] Own Home [ ] Apartment/rented house [ ] Senior Living Home [ ] Penitentiary [ ] Assisted Living [ ] Home of Significant Other [ ] Home of other family members [ ] Home of friends [ ] Other: Patient lives with: [ ] Alone [ ] With Spouse [ ] With Adult Child [X] With Significant Other [ ] With a Friend [ ] Other: Home environment: [ ] Cluttered [X] Clean/tidy [ ] Lacks appropriate heating/plumbing/cooking/fo od storage [ ] Unsanitary [ ] Strong Odor [ ] Fall risks [ ] Steps to enter/or inside home [ ] Other: PATIENT'S PRESENTATION/MENTAL STATUS ASSESSMENT: 1. ORIENTATION: Oriented to: [X] Person [X] Place [X] Time [X] Situation [X] Alert [ ] Lethargic [ ] Confused [ ] Memory Deficits [ ] Other: 2. BEHAVIORS: [ ] Socially appropriate [ ] Aggressive [ ] Yelling [ ] Withdrawn [ ] Delusional [ ] Threatening [ ] Wandering [X]Other: Wanting this typewriter assembly and parts inspector to leave TAJ 3. AFFECT: [ ] Full range affect [ ] Euphoric [X] Flat [ ] Calm [ ] Tense [ ] Anxious [ ] Labile [ ] Hostile [ ] Angry [ ] Congruent with mood [ ] Incongruent with mood 4. MOOD: [ ] Good [X] Fair [ ] Irritable [ ] Tearful/crying [ ] Hopeless [ ] Guilty 5. HYGIENE: [X] Good [ ] Well-groomed [ ] Unkempt [ ] Body odor 6. DRESSED: [X]Casually [ ] Professional casual [ ] Neat [ ] Disheveled 7. EYE CONTACT is: [X] Good [ ] Fair [ ] Intermittent [ ] Direct [ ]Avoidant SUPPORT SYSTEMS Informal supports: Eastern lives with his significant other Dennise in a condo in [place]. She assists with all areas of care and gets some respite from his daughter and son. She's able to transport him to his appointments. Formal supports: [X]Homemaker/Home Health Aide [ ]Inpatient/in-home respite [ ]Adult Day Health Care [ ]VNA/Skilled Home Health Care [ ]Elder Services [ ]Meals on Wheels [ ]Transportation [ ]Personal Emergency Response System [ ]Home Oxygen [ ]Other: OXYGEN SAFETY [X]N/A [ ]No unsafe behavior observed [ ]Unsafe behavior observed ([facility] Home Oxygen Safety Checklist must be completed if unsafe behavior observed) SUBSTANCE USE Alcohol use: None Nicotine use: None Other: Is Eastern interested in substance abuse/smoking cessation treatment? [ ]Yes [X]No PSYCHIATRIC HISTORY: is followed by [facility] psychiatry and has dx of Lewy Body dementia with behavioral disturbance, MDD, and anxiety. His anxiety is high and he's unable to tolerate a normal length of time a visit takes. CRIMINAL HISTORY: Do you have a legal history(arrests,incarcerati ons,probation,parole,divorc e,child custody issues)? No I/ADL FUNCTIONAL ASSESSMENT Franks Index of [place] in Activities of Daily Living: Bathing: [ ] Independent (1) * Bathes self completely or needs help in bathing only a single part of the body such as the back, genital area or disabled extremity. [X] Dependent (0) * Needs help with bathing more than one part of the body, getting in or out of the tub or shower. Requires total bathing. Dressing: [ ] Independent (1) * Gets clothes from closets and drawers and puts on clothes and outer garments complete with fasteners. May have help tying shoes. [X] Dependent (0) * Needs help with dressing self or needs to be completely dressed. Toileting: [X] Independent (1) * Goes to toilet, gets on and off, arranges clothes, cleans genital area without help. [ ] Dependent (0) * Needs help transferring to the toilet, cleaning self or uses bedpan or commode. Transferring: [X] Independent (1) * Independent (1) - Moves in and out of bed or chair unassisted. Mechanical transferring aides are acceptable. [ ] Dependent (0) * Needs help in moving from bed to chair or requires a complete transfer. Continence: [ ] Independent (1) * Exercises complete self control over urination and defecation. [X] Dependent (0) * Is partially or totally incontinent of bowel or bladder. Feeding: [X] Independent (1) * Gets food from plate into mouth without help. Preparation of food may be done by another person. [ ] Dependent (0) * Needs partial or total help with feeding or requires parenteral feeding. Total Points = 3 - Score Explanation: 6 = High (patient independent), 0 = Low (patient very dependent) MIRANDA-YAIMA INSTRUMENTAL ACTIVITIES OF DAILY LIVING: Telephone use: [ ](1) Operates a telephone via own initiative; looks up and dials numbers, etc. [ ](1) Dials a few well known numbers [ ](1) Answers phone but does not dial [X](0) Does not use telephone at all Shopping: [ ](1) Takes care of all shopping needs independently [ ](0) Shops independently for small purchases [X](0) Needs to be accompanied on any shopping trip [ ](0) Completely unable to shop Meal Preparation: [ ](1) Plans, prepares, and serves adequate meals independently [ ](0) Prepares adequate meals if supplied with ingredients [ ](0) Heats, serves, and prepares meals but does not maintain adequate diet [X](0) Needs to have all meals prepared and served Housekeeping: [ ](1) Maintains house alone or with occasional assistance [ ](1) Performs light daily tasks such as dishwashing, bed making [ ](1) Performs light daily tasks but cannot maintain acceptable level of cleanliness. [ ](1) Needs help with all home maintenance tasks [X](0) Does not participate in any housekeeping tasks Laundry: [ ](1) Does personal laundry completely [ ](1) Launders small items; rinses stockings, etc. [X](0) All laundry must be done by others Transportation: [ ](1) Travels independently on public transportation or drives own car [ ](1) Arranges own travel via taxi, but not otherwise use public transportation program [X](1) Travels only when accompanied by others [ ](0) Does not travel at all Medication mgmt: [ ](1) Is responsible for taking correct medication in correct dose, at correct time [ ](0) Takes responsibility if medication is prepared in advance in separate dosages [X](0) Is not capable of dispensing medications Financial mgmt: [ ](1) Manages financial matters independently (budgets, writes own checks, pays rent) [ ](1) Manages day to day purchases but needs help with banking, major purchases, etc [X](0) Incapable of handling money Do you have VA contracted Home Health Aide Services?Yes,(explain) Agency Providing ELECTRIC REPAIR SUPERVISOR Services: Oksana Castrejon Are you satisfied with your personal care provided by the agency? YES Do you feel safe with the personal care services provided by the agency? YES FINANCIAL STATUS Income sources: [ ] VA pension [ ] Senior Living [X] [place] compensation [ ] [place] Annuity [ ] Aid & Attendance [ ] [address] [X] SS Senior Living [ ] SS Disability [X] Private pension [ ] SSI [ ] Other: Income amount: Undisclosed Financial hardship reported: [ ] Yes [X] No Who Manages Finances: Rivera Beltrán Copay status: Outpatient Visits:[X] Exempt [ ] Non-Exempt Medications: [ ] Exempt [X] Non-Exempt Insurance: [ ] Medicare A only [X] Medicare A and B [ ] Medicare HMO: [ ] Medicaid: [ ] Supplemental insurance to Medicare: [ ] Other Private insurance: ADVANCE DIRECTIVE: Does the Eastern have: VA Advance directives on file? [ ] Yes [X] No State Authorized Health Care Proxy Document on file? [X] Yes [ ] No If yes, was document reviewed with ? [X] Yes [ ] No [X] Current [ ] Needs to be updated HCP: Tika Ryan If no , were advanced directives discussed with Eastern? [ ] Yes [ ] No Legal guardian? [ ] Yes [X] No Power of Sourcing Associate? [X] Yes [ ] No Conservator/Fiduciary? [ ] Yes [X] No Is there evidence of abuse or neglect? [ ] Yes [X] No ACTIVITIES/INTERESTS: Television OCCUPATION: [place] employee 38 years HIGHEST LEVEL OF EDUCATION: Post graduate SPIRITUAL BELIEFS: Identified Ne Group: Rastafarian Presence of any mandaen/cultural beliefs that could impact medical decision making? [ ] Yes [X] No If yes, describe: COGNITIVE ASSESSMENT Is Vet a poor historian ? [X] Yes [ ] No Defers to a caregiver/family member? [X] Yes [ ] No Expresses concern over memory? [ ] Yes [X] No Concerns identified: Presence of difficult behaviors? [X] Yes [ ] No If yes, please describe: Needs to have a calm environment--has a high level of anxiety. Does Vet have a diagnosis of cognitive impairment? [X] Yes [ ] No Dx: Lewy Body dementia with behavioral disturbance. Hx of neuropsych testing? If yes, dates/location: Cognitive Screening: [ ] Is Indicated [ ] Is Not Indicated [X] Unable To Complete [ ] Declined by Vet Eastern became anxious and asked this typewriter assembly and parts inspector to leave. Further cognitive evaluation requested by Eastern: [ ] Yes [X] No CAREGIVER STATUS: Does the Eastern have a caregiver who provides substantive assistance on an ongoing basis for the Eastern in the 's place of residence? (not including paid professional caregivers) YES = [place] Interview: Caregiver Name: Dennise Ryan 1. Do you feel that because of the time you spend with your relative, you don't have enough time for yourself? [ ] 0 = Never [ ] 1 = Rarely [X] 2 = Sometimes [ ] 3 = Quite frequently [ ] 4 = Nearly always 2. Do you feel stressed between caring for your relative and trying to meet other responsibilities such as work or family? [ ] 0 = Never [ ] 1 = Rarely [X] 2 = Sometimes [ ] 3 = Quite frequently [ ] 4 = Nearly always 3. Do you feel strained when you are around your relative? [X] 0 = Never [ ] 1 = Rarely [ ] 2 = Sometimes [ ] 3 = Quite frequently [ ] 4 = Nearly always 4. Do you feel unsure about what to do about your relative? [X] 0 = Never [ ] 1 = Rarely [ ] 2 = Sometimes [ ] 3 = Quite frequently [ ] 4 = Nearly always Total score = 4 * A score of 8 or higher reflects high burden and needs further follow-up. Needs identified by caregiver: No need for additional support indicated by significant other. She has access to 2 caregiver support groups if she wishes--1 is in person in [place] and the other by Zoom 2x month. She takes advantage of time sports analyst are present to go out. SOCIAL WORK SUMMARY: Eastern/Caregiver has been provided with information regarding: VA AND COMMUNITY RESOURCES [ ] VA Home Health Aide Services [ ] Elder Care Services [ ] Inpatient/In-Home Respite [ ] Adult Day Health [ ] Hospice [ ] Transportation [ ] Guardian Alert/Personal Emergency Response System [X] Long-Term Care: [ ] Eligible for VA contracted longterm. [X] Not eligible for VA contracted longterm. Advised halfway care would fall to private pay or Medicaid. [X] [facility] [ ] Housing: [ ] Assisted Living [ ] Independent Living [ ] Other: [X] Meals on Wheels [ ] Medicaid/Medicare/Shine for private insurance options [ ] VA Benefits/Compensation [ ] Caregiver support group [ ] Outpatient individual therapy [ ] Other: NURSING HOME PLANNING [X] Patient to stay at home with assistance. [ ] Patient willing to consider SNF. [ ] Declined to discuss halfway planning. ALTERNATIVE PLACEMENT/EMERGENCY PLAN [X] VA Contract [facility] Respite [ ] In-home Respite [ ] Alternative family members providing care [ ] Eastern can remain home safely short-term. [ ] Eastern is independent and does not require a caregiver. [ ] /Caregiver declined. SW will continue education placement plans for urgent/emergent care on an annual basis. ASSESSMENT NARRATIVE: Mr. Maravilla is a 69 year old [place] Eastern that lives in a private condo in [place] with his partner Dennise. She assists with all areas of care and gets some respite from his daughter and son. His daughter lives in [place] and son in [place]. She's able to transport him to his appointments. Eastern was anxious during visit and kept asking how much longer it was going to take. Visit was abbreviated for a length of 30 minutes. Mini mental was not conducted however he was alert and oriented x4 knowing the year, month and time and the purpose of today's visit. Dennise is his primary health care agent with daughter as alternate and then son Jerel. Rashaun has POA and manages his finances. is not eligible for VA payment for LTC and would need to spend down assets to qualify for LT Medicaid with placement in a community SNF. His preference is to remain living at home. In a short term emergency if his children were unable to stay with him he'd be eligible for inpatient respite. SOCIAL WORK PLAN OF CARE: --Provide psychosocial support as needed. --Next annual assessment to be conducted March 2026 unless otherwise indicated. Advance Directive Screen MH AD: Patient has an Advance Directive on file at this [facility]. No updates are needed at this time. The patient received education about Advance Directives and written notification of his/her rights. Toxic Exposure Screening: The Eastern/caregiver was asked if they believe the experienced any toxic exposure(s), such as Airborne Hazards and Open Burn Pit, 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 The Eastern/caregiver was informed that we will continue to ask this screening question every 5 years. They can contact their provider/healthcare team if they have concerns about exposures and would like to be screened sooner. Printed information was offered and provided if desired. Alcohol Use Screen (AUDIT-C): Alcohol Screen: SCREEN FOR ALCOHOL (AUDIT-C) An alcohol screening test (AUDIT-C) was negative (score=0). 1. How often did you have a drink containing alcohol in the past year? Consider a drink to be a 12 ounce can or bottle of regular beer, 8 ounces of malt liquor, a 5 ounce glass of table wine, or a 1.5 ounce shot of liquor (like scotch, gin, or vodka). Never 2. How many drinks containing alcohol did you have on a typical day when you were drinking in the past year? Response not required due to responses to other questions. 3. How often did you have six or more drinks on one occasion in the past year? Response not required due to responses to other questions. RHS Screen: RHS Screen Session Format: Face to Face Environmental Check Screening was not completed at this time due to: Another adult present [facility] Pain Assessment Pain Score: 0 Suicide Screen: C-SSRS Screening [place]-Suicide Severity Rating Scale (C-SSRS Screener) 1. Over the past month, have you wished you were or wished you could go to sleep and not wake up? No 2. Over the past month, have you had any actual thoughts of killing yourself? No 3. Over the past month, have you been thinking about how you might do this? Response not required due to responses to other questions. 4. Over the past month, have you had these thoughts and had some intention of acting on them? Response not required due to responses to other questions. 5. Over the past month, have you started to work out or worked out the details of how to kill yourself? Response not required due to responses to other questions. 6. If yes, at any time in the past month did you intend to carry out this plan? Response not required due to responses to other questions. 7. In your lifetime, have you ever done anything, started to do anything, or prepared to do anything to end your life (for example, collected pills, obtained a gun, gave away valuables, went to the roof but didn't jump)? No 8. If YES, was this within the past 3 months? Response not required due to responses to other questions. Homelessness/Food Insecurity Screen: The reports the following: Within the past 12 months, you worried whether your food would run out before you got money to buy more. Never true Within the past 12 months, the food you bought just didn't last and you didn't have money to get more. Never true /es/ LATONYA EWING DAIRY HUSBANDRY WORKER [facility] Recycling Worker Signed: 03/21/2025 08:12 LATONYA WEING [place] [facility] [place] [facility]
--- OUTSIDE RECORDS SUMMARY | 2025-03-31 08:00 | XMS_ITS ---
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 Name Role Phone IVAN VELAZQUEZ Primary Care Provider Unav ailable GILDARDO, LATONYA Unavailable Unavailable CALEB ORTIZ, ALYCIA Unavailable Unavailable DANISHA, MENDEZ Unavailable Unavailable CHAPUT, LETA Unavailable Unavailable FEIILAN, ADAN Unavailable Unavailable DIVINE, EWA Unavailable Unavailable DENISE LAST Unavailable Unavailable ITA, CARLI Unavailable Unavailable HIEU PECK Unavailable Unavailable Insurance [...] (PPO) BASIC SELF Aug 21, 2013 111 [id number] [phone] GISELL CELIO PATIENT [place]THE[place] F[place] PREFERRED PROVIDER ORGANIZAT ION (PPO) FEP BASIC IND Aug 21, 2013 111 [id number] [phone] CELIO GARDNER PATIENT ANTHEM FEP PREFERRED PROVIDER ORGANIZAT ION (PPO) FEP BASIC SELF Aug 21, 2013 111 [id number] [phone] GISELL CELIO PATIENT BCBS FEP PREFERRED PROVIDER ORGANIZAT ION (PPO) [id number] Aug 21, 2013 111 [id number] CELIO GARDNER PATIENT BCBS YOLANDA ATTN FEP CLAIMS PREFERRED PROVIDER ORGANIZAT ION (PPO) FEP BASIC IND Aug 21, 2013 111 [id number] [phone] CELIO GARDNER PATIENT [place]BS [place] FEP PREFERRED PROVIDER ORGANIZAT ION (PPO) FEP BASIC IND Aug 21, 2013 111 [id number] [phone] CELIO GARDNER PATIENT [place] F[place] PREFERRED PROVIDER ORGANIZAT ION (PPO) BASIC INDIV IDUAL Aug 21, 2013 111 [id number] [phone] CELIO JAMESON PATIENT BCBS OF [place] FEP PREFERRED PROVIDER ORGANIZAT ION (PPO) BASIC SELF Aug 21, 2013 111 [id number] CELIO GARDNER PATIENT [place] F[place] PREFERRED PROVIDER ORGANIZAT ION (PPO) BASIC SELF Aug 21, 2013 111 [id number] 27 CELIO JAMESON PATIENT [place] FEP DENTAL DENTAL INSURANCE BASIC Aug 21, 2013 DENTAL [id number] [phone] CELIO GARDNER PATIENT [place] FEP PREFERRED PROVIDER ORGANIZAT ION (PPO) BASIC SELF Aug 21, 2013 111 [id number] 27 CELIO GARDNER PATIENT [place] FEDERAL PREFERRED PROVIDER ORGANIZAT ION (PPO) BASIC SELF Aug 21, 2013 111 [id number] 27 CELIO GARDNER PATIENT [place] PREFERRED PROVIDER ORGANIZAT ION (PPO) STAND MAGDALENA FAMIL Y Aug 18, 2006 105 [id number] 27 CELIO GARDNER PATIENT CAREFIRST BCBS FEP MEDICARE SECONDARY (NO B EXC) FEHB BASIC MEDSE C Aug 21, 2013 111 [id number] [phone] CELIO GARDNER PATIENT C[employer]FIRST BCBS FEP PREFERRED PROVIDER ORGANIZAT ION (PPO) FEP STAND [place]ENA Sep 23, 2006 [id number] CELIO GARDNER PATIENT CAR[employer]ARK FEP ([id number]) PRESCRIPT ION FEP RX Aug 21, 2013 [id number] [phone] GARDNER, CELIO PATIENT [employer]ARK FEP [id number] PRESCRIPT ION FEPRX Aug 21, 2013 [id number] [phone] CELIO GARDNER CAREELIJAH FEP BCBS PRESCRIPT ION CAREM ARK FEPRX Aug 21, 2013 [id number] CELIO JAMESON CAREELIJAH FEP RX [id number] PRESCRIPT ION [id number] Aug 21, 2013 [id number] CELIO GARNDER CAREMARK-F EP BCBS PRESCRIPT ION FEP Aug 21, 2013 [id number] CELIO GARDNER MEDICARE ([facility]) MEDICARE () PART A Nov 16, 2021 PART A [id number] CELIO GARDNER PATIENT MEDICARE ([facility]) MEDICARE () PART B Nov 16, 2021 PART B [id number] CELIO GARDNER PATIENT MEDICARE ([place]) MEDICARE ) PART A Nov 16, 2021 PART A [id number] CELIO GARDNER PATIENT MEDICARE ([facility]) MEDICARE () PART B Nov 16, 2021 PART B [id number] CELIO GARDNER PATIENT MEDICARE ([place]) MEDICARE () PART A Nov 16, 2021 PART A [id number] CELIO GARDNER PATIENT MEDICARE ([place]) MEDICARE () PART B Nov 16, 2021 PART B [id number] CELIO GARDNER PATIENT MEDICARE ([place]) MEDICARE () PART A Nov 16, 2021 PART A [id number] [phone] CELIO GARDNER PATIENT MEDICARE ([place]) MEDICARE () PART B Nov 16, 2021 PART B [id number] CELIO GARDNER PATIENT MEDICARE ([place]) MEDICARE () PART A Nov 16, 2021 PART A [id number] [phone] CELIO GARDNER PATIENT MEDICARE (WNR) MEDICARE (M) PART B Nov 16, 2021 PART B [id number] CELIO GARDNER PATIENT MEDICARE (WNR) MEDICARE (M) PART A Nov 16, 2021 PART A [id number] CELIO GARDNER PATIENT MEDICARE (WNR) MEDICARE (M) PART B Nov 16, 2021 PART B [id number] CELIO GARDNER PATIENT MEDICARE PART D (WNR) MEDICARE (M) PART D Aug 18, 2023 PART D [id number] CELIO GARDNER PATIENT Selected Encounter This section includes the information on record at [place] for the Encounter. Date/Time Encounter Type Encounter Description Reason Provider Source Mar 31, 2025 01:00 PM [facility]-SERV OF OT,EA 15 MIN [facility]PC - THERAPIST ICD-10-CM R26.9 Unspecified abnormalities of gait and mobility CARLI LONGORIA [facility] Encounter Template Text not used by [place] Assessments - Encounter Diagnoses This section includes the primary and secondary diagnoses documented for the Encounter. Date/Time Primary/Secondary Diagnosis Diagnosis Name Provider Source Mar 31, 2025 01:49 PM PRIMARY Unspecified abnormalities of gait and mobility CARLI LONGORIA [place] [facility] VICKIE HERNANDE[facility] Plan of Treatment: Future Appointments [...] 05, 2025 03:00 PM AMBULATORY - PSYCHIATRY [facility] Apr 05, 2025 04:00 PM AMBULATORY - PSYCHIATRY [facility] May 24, 2025 03:30 PM AMBULATORY - PSYCHIATRY [facility] Jul 05, 2025 03:00 PM AMBULATORY - MEDICINE [facility] [place] [facility] Jul 05, 2025 03:30 PM AMBULATORY - PSYCHIATRY [facility] Jul 22, 2025 09:45 AM AMBULATORY - NONE [facility] [place] [facility] Jul 27, 2025 09:00 AM AMBULATORY - MEDICINE [facility] [place] [facility] Aug 23, 2025 03:30 PM AMBULATORY - PSYCHIATRY [facility] Social History: Smoking Status [...] took place. Date/Time Current Smoking Status Comment [facility] Sep 17, 2021 11:00 AM VA-TOBACCO FORMER USER [place] [facility] [place] [facility] Tobacco Use History This section includes a history of the smoking, or tobacco-related health factors, that were collected on or before the date of the Encounter. The data comes from the [place] facility where the Encounter took place. Date/Time Smoking Status/Tobac co Use Comment Facility Sep 17, 2021 11:00 AM VA-TOBACCO QUIT 15 YRS OR MORE [place] [facility] [place] [facility] Mar 01, 2020 01:30 PM VA-TOBACCO FORMER USER [facility] [place] [facility] Mar 01, 2020 01:30 PM VA-TOBACCO QUIT 15 YRS OR MORE [facility] [place] [facility] Jan 20, 2019 09:37 AM VA-TOBACCO NEVER USED [facility] [place] [facility] Dec 11, 2017 05:17 PM QUIT TOBACCO USE > 7 YEARS AGO [facility] [place] [facility] Jan 20, 2017 03:12 PM QUIT TOBACCO USE > 7 YEARS AGO [facility] [place] [facility] January 09, 2016 08:48 AM QUIT TOBACCO USE > 7 YEARS AGO . [facility] [place] [facility] Jun 09, 2006 05:45 PM LIFETIME NON-TOBACCO USER [facility] [place] [facility] Aug 22, 2003 03:27 PM HISTORY OF SMOKING [facility] [place] [facility] Aug 22, 2003 03:27 PM QUIT TOBACCO USE IN PAST YEAR [facility] [place] [facility] Jun 24, 2003 12:01 PM CURRENT SMOKER about 1 week/so [facility] Advance Directives: All historical and current Section [...] Provider Source Apr 08, 2024 ADVANCE DIRECTIVE GILDARDOLATONYA [facility] Sep 19, 2021 GOALS & PREFERENCES TO INFORM LIFE-SUSTAINING TREATMENT PLAN MARY VIVAS [facility] Sep 19, 2020 ADVANCE DIRECTIVE ALANA MONIQUE [facility] Encounter Notes: All associated encounter notes This section contains the clinical notes associated to the Encounter. Date/Time Encounter Note(s) Provider Source Mar 30, 2025 01:00 PM [facility] ANNUAL EVALUATION NOTE: LOCAL TITLE: [facility] OCCUPATIONALTHERAPY ANNUAL HOME SAFETY EVALUAT STANDARD TITLE: [facility] ANNUAL EVALUATION NOTE DATE OF NOTE: MAR 30, 2025@13:00 ENTRY DATE: MAR 31, 2025@13:35:35 AUTHOR: CARLI LONGORIA COSIGNER: URGENCY: STATUS: COMPLETED Occupational Therapy Assessment ( )Initial (X)Annual ( )Other Date: 03/30/2025 Time: 1:00-1:20 pm PATIENT IDENTIFIERS (2): NAME: X Facial Recognition: X Diagnosis: Unspecified dementia, unspecified severity, with anxiety(ICD-10-CM F03.94) PMH: Active problems - Computerized Problem List is the source for the followin. Frail elderly 2. Dry eyes 3. Anxiety 4. Hypertension 5. Seasonal allergies 6. Constipation 7. Malignant melanoma of lower limb 8. Microscopic hematuria 9. Lewy body dementia with behavioral disturbance 10. Neurocognitive disorder 11. Severe major depression with psychotic features 12. Sleep apnea 13. Lower urinary tract symptoms due to benign prostatic hypertrophy 14. OA - Osteoarthritis of knee 15. Internal hemorrhoids 16. Macular scar 17. 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 Benign prostatic hyperplasia 20. Impaired Fasting Glucose 21. Exercise induced bronchospasm 22. Hyperlipidemia WHAT MATTERS What Matters was addressed at this visit. Comment: living at home MOBILITY -------- Mobility was addressed at this visit. Comment: -[facility] score 7 VITALS: not formally assessed SOCIAL HISTORY/DEMOGRAPHICS: lives in [facility] with 24/ with his girlfriend. They recently downsized from single family home. SUBJECTIVE: alert, affect flat, anxious COGNITIVE STATUS: alert, follows simple instructions PAIN: none reported or observed FALLS: no OBJECTIVE: [place] was seen by Occupational Therapy for annual home safety evaluation and to assess need for adaptive equipment. PHYSICAL ASSESSMENT OF ROM/MMT: WFL FUNCTIONAL TRANSFERS: ad oswaldo no device, has adjustable bed FUNCTIONAL MOBILITY: ambulates independently, forward flexed, rigid SELFCARE Dressing: assist of 1 Bathing: assist of 1; showers in step in shower with 1 assist/supervision Toileting: independent Eating: feeds self; caregivers assist with meals HOME SAFETY CHECKLIST: Type of Home - 2 level [facility] house Stairs to enter - 3 Stairs in the home - yes, full flight to loft Railings at all stair locations - yes Lighting (y = safe; n = not safe) Stairs - y Bathroom - y Kitchen - y General - y Floor type Bathroom - tile Kitchen - tile General - carpet Appropriate Shoes - yes Bathtub/Shower Type - walk in, built in seat, hand held shower, grab bars Toilet Type - comfort height, elongated Kitchen - small with adjacent table and chairs Clutter - no Cleanliness - good Clear Walking Paths - yes Throw Rugs - no Medications Stored Properly - n/a Smoke Detectors/CO Detectors working - yes Outside home environment - lawn, pavement Smoking - no Oxygen - no Oxygen Safety (if above is yes, reviewed with patient) Oxygen Sign Posted on Front Door No Open Flames 10 Rule Oxygen Tank Storage No Petroleum Products On/Near Face How does the patient/client best learn? verbal cues, demonstration Does the patient/client have any cultural and evangelical beliefs, emotional barriers, physical or cognitive limitations, and communication barriers which may impact his/her ability to learn? anxiety, memory loss Desire and motivation to learn? decreased Other Safety: Telephone: managed by caregivers Tripping/safety hazards: no Emergency: not left alone EQUIPMENT: grab bars and hand held shower in bathroom, built in shower seat, walk in shower with 1 step- no grab bar in shower- declined adjustable shower seat PATIENT EDUCATION: regarding options for mobility if needed in future including bed handle, grab bars and shower seat Assessment/Recommendations: [place] is managing well in [facility] with assist from live in girlfriend who provides 10/03 assistance and oversight. was anxious for this OT to finish and leave but was cooperative with assessment with encouragement for girlfriend. No safety concerns or equipment needs noted at this time. Encouraged movement when possible, especially walking. No ongoing rehab needs identified at this time. The practitioner's co-signature on this note signifies agreement with plan of care and clinical diagnosis code. /erasto/ Carli Longoria [facility] Occupational Therapist Signed: 03/31/2025 13:49 Receipt Acknowledged By: 03/31/2025 14:10 /es/ IVAN VELAZQUEZ RN,MSN,HOTEL CASINO FLOORPERSON-C [facility] NURSE PRACTITIONER CARLI LONGORIA [place] [facility]
--- OUTSIDE RECORDS SUMMARY | 2025-04-05 10:00 | XMS_ITS | Encounter Summary ---
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 Name Role Phone IVAN VELAZQUEZ Primary [...] (PPO) BASIC SELF Aug 21, 2013 111 [id number] [phone] GISELLCELIO PATIENT ANTHEM [place] FEP PREFERRED PROVIDER ORGANIZAT ION (PPO) FEP BASIC IND Aug 21, 2013 111 [id number] [phone] CELIO GARDNER PATIENT ANTHEM FEP PREFERRED PROVIDER ORGANIZAT ION (PPO) FEP BASIC SELF Aug 21, 2013 111 [id number] [phone] GISELL CELIO PATIENT BCBS FEP PREFERRED PROVIDER ORGANIZAT ION (PPO) [id number] Aug 21, 2013 111 [id number] CELIO GARDNER PATIENT BCBS YOLANDA ATTN FEP CLAIMS PREFERRED PROVIDER ORGANIZAT ION (PPO) FEP BASIC IND Aug 21, 2013 111 [id number] [phone] CELIO GARDNER PATIENT [place] FEP PREFERRED PROVIDER ORGANIZAT ION (PPO) FEP BASIC IND Aug 21, 2013 111 [id number] [phone] CELIO GARDNER PATIENT BCBS [place] FEP PREFERRED PROVIDER ORGANIZAT ION (PPO) BASIC INDIV IDUAL Aug 21, 2013 111 [id number] [phone] CELIO JAMESON PATIENT [place] FEP PREFERRED PROVIDER ORGANIZAT ION (PPO) BASIC SELF Aug 21, 2013 111 [id number] [phone] CELIO GARDNER PATIENT [place] FEP PREFERRED PROVIDER ORGANIZAT ION (PPO) BASIC SELF Aug 21, 2013 111 [id number] 27 CELIO JAMESON PATIENT [place] FEP DENTAL DENTAL INSURANCE BASIC Aug 21, 2013 DENTAL [id number] [phone] CELIO GARDNER PATIENT [place] FEP PREFERRED PROVIDER ORGANIZAT ION (PPO) BASIC SELF Aug 21, 2013 111 [id number] 27 CELIO GARDNER PATIENT [place] FED[place] PREFERRED PROVIDER ORGANIZAT ION (PPO) BASIC SELF Aug 21, 2013 111 [id number] 27 CELIO GARDNER PATIENT [place] PREFERRED PROVIDER ORGANIZAT ION (PPO) STAND MAGDALENA FAMIL Y Aug 18, 2006 105 [id number] [phone] CELIO GARDNER PATIENT C[employer] BCBS FEP MEDICARE SECONDARY (NO B EXC) FEHB BASIC MEDSE C Aug 21, 2013 111 [id number] [phone] CELIO GARDNER PATIENT [employer] BCBS FEP PREFERRED PROVIDER ORGANIZAT ION (PPO) FEP STAND [place] Sep 23, 2006 [id number] CELIO GARDNER PATIENT CAREMARK FEP ([id number]) PRESCRIPT ION FEP RX Aug 21, 2013 [id number] [phone] CELIO GARDNER [employer]ARK FEP [id number] PRESCRIPT ION FEPRX Aug 21, 2013 [id number] [phone] CELIO GARDNER CAR[employer]ARK FEP BCBS PRESCRIPT ION CAREM ARK FEPRX Aug 21, 2013 [id number] [phone] CELIO JAMESON FEP RX [id number] PRESCRIPT ION [id number] Aug 21, 2013 [id number] [phone] CELIO GARDNER CAREMARK-F EP BCBS PRESCRIPT ION FEP Aug 21, 2013 [id number] CELIO GARDNER PATIENT MEDICARE ([facility]) MEDICARE () PART A Nov 16, 2021 PART A [id number] [phone] CELIO GARDNER PATIENT MEDICARE ([facility]) MEDICARE (M) PART B Nov 16, 2021 PART B [id number] [phone] CELIO GARDNER PATIENT MEDICARE ([facility]) MEDICARE (M) PART A Nov 16, 2021 PART A [id number] CELIO GARDNER PATIENT MEDICARE ([facility]) MEDICARE (M) PART B Nov 16, 2021 PART B [id number] [phone] CELIO GARDNER PATIENT MEDICARE ([facility]) MEDICARE (M) PART A Nov 16, 2021 PART A [id number] CELIO GARDNER PATIENT MEDICARE ([facility]) MEDICARE (M) PART B Nov 16, 2021 PART B [id number] CELIO GARDNER PATIENT MEDICARE ([facility]) MEDICARE (M) PART A Nov 16, 2021 PART A [id number] CELIO GARDNER PATIENT MEDICARE ([facility]) MEDICARE (M) PART B Nov 16, 2021 PART B [id number] CELIO GARDNER PATIENT MEDICARE ([facility]) MEDICARE (M) PART A Nov 16, 2021 PART A [id number] CELIO GARDNER PATIENT MEDICARE (WNR) MEDICARE (M) PART B Nov 16, 2021 PART B [id number] CELIO GARDNER PATIENT MEDICARE (WNR) MEDICARE (M) PART A Nov 16, 2021 PART A [id number] [phone] CELIO GARDNER PATIENT MEDICARE (WNR) MEDICARE (M) PART B Nov 16, 2021 PART B [id number] [phone] CELIO GARDNER PATIENT MEDICARE PART D (WNR) MEDICARE (M) PART D Aug 18, 2023 PART D [id number] [phone] CELIO GARDNER PATIENT Selected Encounter This section includes the information on record at [place] for the Encounter. Date/Time Encounter Type Encounter Description Reason Provider Source Apr 05, 2025 03:00 PM PSYTX W PT 30 [facility]ES [facility] - IND ICD-10-CM F33.3 Major depressv disorder, recurrent, severe w psych symptoms TRESA SILVERIO [facility] Encounter Template Text not used by [place] Assessments - Encounter Diagnoses This section includes the primary and secondary diagnoses documented for the Encounter. Date/Time Primary/Secondary Diagnosis Diagnosis Name Provider Source Jun 11, 2025 01:43 PM PRIMARY Major depressv disorder, recurrent, severe w psych symptoms TRESA SILVERIO GABLE Plan of Treatment: Future Appointments (+ 6 [...] Date/Time Appointment Type Appointme nt Facility Name May 24, 2025 03:30 PM AMBULATORY - PSYCHIATRY [facility] Jul 05, 2025 03:00 PM AMBULATORY - MEDICINE [facility] Jul 05, 2025 03:30 PM AMBULATORY - PSYCHIATRY [facility] Jul 22, 2025 09:45 AM AMBULATORY - NONE [place] [facility] [place] [facility] Jul 27, 2025 09:00 AM [facility] Aug 23, 2025 03:30 PM AMBULATORY - PSYCHIATRY [facility] Advance Directives: All historical and current Section [...] Source Apr 08, 2024 ADVANCE DIRECTIVE GILDARDOLATONYA [place] [facility] Sep 19, 2021 GOALS & PREFERENCES TO INFORM LIFE-SUSTAINING TREATMENT PLAN MARY VIVAS [place] [facility] Sep 19, 2020 ADVANCE DIRECTIVE ALANA MONIQUE [place] [facility] Encounter Notes: All associated encounter notes This section contains the clinical notes associated to the Encounter. Date/Time Encounter Note(s) Provider Source Apr 05, 2025 03:00 PM SOCIAL WORK NOTE: LOCAL TITLE: SOCIAL WORK NOTE STANDARD TITLE: SOCIAL WORK NOTE DATE OF NOTE: APR 05, 2025@15:00 ENTRY DATE: APR 05, 2025@16:00 AUTHOR: TRESA SILVERIO EXP COSIGNER: URGENCY: STATUS: COMPLETED INFORMED CONSENT REVIEWED: At beginning of session reviewed rights and limits of confidentiality, mandatory reporting situations, duty to warn and protect, Agosto Warning, (if treatment team finds patient to be an acute danger to himself or others, that this information could be relayed to a court of law and presented to a test technician), and [facility] access for active duty service members. Provided Suicide Prevention Hotline number, and other contact numbers as necessary. VISIT DURATION Other: 20 identified with 2 identifiers: Full Name, Facial Recognition DIAGNOSES: MDD recurrent severe with psychotic symptoms (F33.3) [employer] STATEMENT OF GOALS/CONCERNS: I want to go. SESSION FOCUS: Met with face to face for individual counseling. agreed it has been a while since he has been here. He stated he has not done much this summer, no family picnics etc. He stated he has not thought about it and doesn't think about much. Lovelock's was here and she shared that they moved into a condo. It is much more manageable. continues to walk on his treadmill approx 22 minutes per day. Lovelock was anxious and it was difficult to engage him in conversation. INTERVENTIONS: Psychotherapeutic Interventions: NV; Reflective listening and support ASSESSMENT: BRIEF ASSESSMENT [...] Denies current suicidal ideation PLAN FOR FOLLOW-UP: will call to schedule next appt. /erasto/ MIL TAM Sorter [facility] Signed: 04/05/2025 16:05 TRESA SILVERIO
--- OUTSIDE RECORDS SUMMARY | 2025-04-05 11:00 | XMS_ITS | Encounter Summary ---
Author Name [facility] [place] [facility] [place] Address [address] [place] [address] Care Team Providers Care Credit Associate Name Role Phone IVAN CHERRY Primary Care [...] (PPO) BASIC SELF Aug 21, 2013 111 [id number] [phone] EricMARIA ELENA CELIO PATIENT ANTHE[place] PREFERRED PROVIDER ORGANIZAT ION (PPO) FEP BASIC IND Aug 21, 2013 111 [id number] [phone] CELIO GARDNER PATIENT ANTHEM FEP PREFERRED PROVIDER ORGANIZAT ION (PPO) FEP BASIC SELF Aug 21, 2013 111 [id number] [phone] EricHONEYELVIACELIO BARAHONA PATIENT BCBS FEP PREFERRED PROVIDER ORGANIZAT ION (PPO) [id number] Aug 21, 2013 111 [id number] CELIO GARDNER PATIENT BCBS YOLANDA ATTN FEP CLAIMS PREFERRED PROVIDER ORGANIZAT ION (PPO) FEP BASIC IND Aug 21, 2013 111 [id number] [phone] CELIO GARDNER PATIENT [place] FEP PREFERRED PROVIDER ORGANIZAT ION (PPO) FEP BASIC IND Aug 21, 2013 111 [id number] [phone] CELIO GARDNER PATIENT [place] FEP PREFERRED PROVIDER ORGANIZAT ION (PPO) BASIC INDIV IDUAL Aug 21, 2013 111 [id number] [phone] CELIO JAMESON PATIENT [place] OF [place] FEP PREFERRED PROVIDER ORGANIZAT ION (PPO) BASIC SELF Aug 21, 2013 111 [id number] CELIO GARDNER PATIENT [place] F[place] PREFERRED PROVIDER ORGANIZAT ION (PPO) BASIC SELF Aug 21, 2013 111 [id number] [phone] CELIO JAMESON PATIENT [place] FEP DENTAL DENTAL INSURANCE BASIC Aug 21, 2013 DENTAL [id number] [phone] CELIO GARDNER PATIENT [place] FEP PREFERRED PROVIDER ORGANIZAT ION (PPO) BASIC SELF Aug 21, 2013 111 [id number] CELIO GARDNER PATIENT [place] OF [place] FEDERAL PREFERRED PROVIDER ORGANIZAT ION (PPO) BASIC SELF Aug 21, 2013 111 [id number] [phone] CELIO [place]ARDNER [place]IENT [place] PREFERRED PROVIDER ORGANIZAT ION (PPO) STAND MAGDAL[place] FAMIL Y Aug 18, 2006 105 [id number] CELIO GARDNER PATIENT KEHINDEFIRST BCBS FEP MEDICARE SECONDARY (NO B EXC) FEHB BASIC MEDSE C Aug 21, 2013 111 [id number] [phone] CELIO GARDNER PATIENT CAREFIRST BCBS FEP PREFERRED PROVIDER ORGANIZAT ION (PPO) FEP STAND MAG[place]ALENA Sep 23, 2006 [id number] CELIO GARDNER PATIENT [place] FEP ([id number]) PRESCRIPT ION FEP RX Aug 21, 2013 [id number] [phone] CELIO GARDNER [place] FEP [id number] PRESCRIPT ION FEPRX Aug 21, 2013 [id number] [phone] CELIO GARDNER CAREMARK FEP BCBS PRESCRIPT ION CAREM ARK FEPRX Aug 21, 2013 [id number] [phone] CELIO JAMESON FEP RX [id number] PRESCRIPT ION [id number] Aug 21, 2013 [id number] [phone] CELIO GARDNER CAREMARK-F EP BCBS PRESCRIPT ION FEP Aug 21, 2013 [id number] CELIO GARDNER PATIENT MEDICARE ([employer] [facility]) MEDICARE (M) PART A Nov 16, 2021 PART A [id number] [phone] CELIO GARDNER PATIENT MEDICARE ([employer] [facility]) MEDICARE (M) PART B Nov 16, 2021 PART B [id number] [phone] CELIO GARDNER PATIENT MEDICARE ([facility]) MEDICARE (M) PART A Nov 16, 2021 PART A [id number] CELIO GARDNER PATIENT MEDICARE ([facility]) MEDICARE (M) PART B Nov 16, 2021 PART B [id number] CELIO GARDNER PATIENT MEDICARE ([facility]) MEDICARE (M) PART A Nov 16, 2021 PART A [id number] [phone] CELIO GARDNER PATIENT MEDICARE ([facility]) MEDICARE (M) PART B Nov 16, 2021 PART B [id number] [phone] CELIO GARDNER PATIENT MEDICARE ([facility]) MEDICARE (M) PART A Nov 16, 2021 PART A [id number] [phone] CELIO GARDNER PATIENT MEDICARE ([facility]) MEDICARE (M) PART B Nov 16, 2021 PART B [id number] CELIO GARDNER PATIENT MEDICARE ([facility]) MEDICARE (M) PART A Nov 16, 2021 PART A [id number] CELIO GARDNER PATIENT MEDICARE (WNR) MEDICARE (M) PART B Nov 16, 2021 PART B [id number] [phone] CELIO GARDNER PATIENT MEDICARE (WNR) MEDICARE (M) PART A Nov 16, 2021 PART A [id number] CELIO GARDNER PATIENT MEDICARE (WNR) MEDICARE (M) PART B Nov 16, 2021 PART B [id number] CELIO GARDNER PATIENT MEDICARE PART D (WNR) MEDICARE (M) PART D Aug 18, 2023 PART D [id number] [phone] CELIO GARDNER PATIENT Selected Encounter This section includes the information on record at [place] for the Encounter. Date/Time Encounter Type Encounter Description Reason Provider Source Apr 05, 2025 04:00 PM OFFICE O/P EST MOD 30 MIN [facility] - IND ICD-10-CM F33.3 Major depressv disorder, recurrent, severe w psych symptoms VIGNESH LLAMAS Alcides Encounter Template Text not used by [place] Assessments - Encounter Diagnoses This section includes the primary and secondary diagnoses documented for the Encounter. Date/Time Primary/Secondary Diagnosis Diagnosis Name Provider Source Jun 08, 2025 10:18 PM PRIMARY Major depressv disorder, recurrent, severe w psych symptoms KATIE LLAMAS Plan of Treatment: Future Appointments (+ 6 months) and Future Tests (+/- 45 days) The Plan of Treatment section includes future care activities for the patient from all [place] treatmentfacilities. This section includes future appointments and future orders which are active, pending or scheduled. Future Appointments This section includes appointments that were scheduled to occur 6 months from the date of the Encounter, up to a maximum of 20 appointments. The data comes from all [place] treatment facilities. Appointment Date/Time Appointment Type Appointme nt Facility Name May 24, 2025 03:30 PM AMBULATORY - PSYCHIATRY [facility] Jul 05, 2025 03:00 PM AMBULATORY - MEDICINE [place] [facility] [place] [facility] Jul 05, 2025 03:30 PM AMBULATORY - PSYCHIATRY [facility] Jul 22, 2025 09:45 AM AMBULATORY - NONE [place] [facility] Jul 27, 2025 09:00 AM [facility] [place] [facility] Aug 23, 2025 03:30 PM AMBULATORY - PSYCHIATRY [facility] Advance Directives: All historical and current Section Date Range: From patient's date of to the date document was created. This section includes ALL of a patient's completed or amended [place] Advance and Rescinded Directives. The entries below indicate that a directive exists for the patient, but an actual copy is not included with this document. The data comes from all [place] facilities. Date Advance Directives Provider Source Apr 08, 2024 ADVANCE DIRECTIVE GILDARDO,LATONYA [place] CNT RL [facility] Sep 19, 2021 GOALS & PREFERENCES TO INFORM LIFE-SUSTAINING TREATMENT PLAN MARY VIVAS [place] [facility] Sep 19, 2020 ADVANCE DIRECTIVE KAYDENALANA ROSALINO [place] CN TRL [facility] Encounter Notes: All associated encounter notes This section contains the clinical notes associated to the Encounter. Date/Time Encounter Note(s) Provider Source Apr 05, 2025 07:11 PM ADDENDUM: LOCAL TITLE: Addendum STANDARD TITLE: ADDENDUM DATE OF NOTE: APR 05, 2025@19:11:20 ENTRY DATE: APR 05, 2025@19:11:23 AUTHOR: KATIE LLAMAS EXP COSIGNER: URGENCY: STATUS: COMPLETED please see rtc order, please call pt's to schedule /erasto/ KATIE LLAMAS MD STAFF PSYCHIATRIST Signed: 04/05/2025 19:11 Receipt Acknowledged By: 04/06/2025 10:53 /erasto/ Saira Fernández ADVANCED LIBRARY HELPER --- Original Document --- 04/05/25 PSYCHIATRY NOTE: 35 min for encounter, including chart review, interview, charting chart reviewed Patient seen with his Dennise Ongoing depressed mood and anxiety - overall, no change today. Affect blunted. No PI or delusions presented Denied AHs and VHs. Disorganized, again processing of info more slowly Again paucity of content noted. Denies SI and violent ideation. Cognitive exam seems to be notable for more memory problems and processing difficulties. MOCA 15/30 in 07/2024 Speech again has relatively long response latency, slow responses, limited content. Sleep generally ok Again, Dennise reports pt sometimes better in the evenings w less anxiety As noted in previous appts -- in general the patient has been very reluctant to change medcations - any change is difficult for him -- but see below for slow changes w agreed on. Note that pt started on sinemet by neuro previously Denies current psych med side effects; no daytime sedation; reports med compliance -- patient's manages medications as noted before, no h/o alcohol and drug abuse Patient's organizes his care. She is very supportive. Pt/ recently moved to [facility] wt 193 lb 03/2025 at home; VS ok in chart Active [...] Hypofunction 19. Benign prostatic hyperplasia (SNOMED CT 596955435) 20. Impaired Fasting Glucose 21. Exercise induced bronchospasm (SNOMED CT 916871924) 22. Hyperlipidemia (SNOMED CT 94230224) Active Outpatient Medications (including Supplies): Active Outpatient Medications Status 1) CARBIDOPA 25/LEVODOPA 100MG TAB TAKE 1 TABLET BY MOUTH TWICE ACTIVE DAILY FOR 3 DAYS, THEN TAKE 1 TABLET THREE TIMES A DAY TOLERATED 2) CLONAZEPAM 0.5MG TAB TAKE ONE-HALF TABLET BY MOUTH FOUR ACTIVE TIMES DAILY NEEDED Indication: ANXIETY 3) DICLOFENAC NA 1% TOP GEL APPLY 4 GRAMS TOPICALLY FOUR TIMES ACTIVE DAILY NEEDED - USE DOSING CARD PROVIDED IN BOX Indication: FOR OSTEOARTHRITIS 4) ESCITALOPRAM OXALATE 5MG TAB TAKE ONE AND ONE-HALF TABLETS ACTIVE BY MOUTH ONCE DAILY FOR MOOD/DEPRESSION ### Indication: FOR MAJOR DEPRESSIVE DISORDER 5) MELATONIN 5MG CAP/TAB TAKE TWO CAPSULE/TABLET BY MOUTH AT ACTIVE BEDTIME NEEDED Indication: FOR INSOMNIA 6) MEMANTINE HCL 10MG TAB TAKE ONE TABLET BY MOUTH TWICE DAILY ACTIVE ### Indication: DEMENTIA 7) METOPROLOL SUCCINATE 100MG SA TAB TAKE ONE TABLET BY MOUTH ACTIVE (S) ONCE DAILY FOR BLOOD PRESSURE/HEART Indication: FOR HIGH BLOOD PRESSURE 8) MULTIVIT/OPHTH AREDS2/LUTE/ZEAX CAP/TAB TAKE 1 CAPSULE BY ACTIVE (S) MOUTH TWICE DAILY IN THE MORNING AND EVENING, WITH FOOD Indication: FOR VITAMIN SUPPLEMENTATION 9) POLYETHYLENE GLYCOL 3350 ORAL PWDR TAKE 17 GRAMS(FILL CAP TO ACTIVE 17GM LINE) BY MOUTH ONCE DAILY NEEDED [MIX WITH 4 TO 8OZ. OF BEVERAGE] Indication: FOR CONSTIPATION 10) QUETIAPINE FUMARATE 25MG TAB TAKE ONE-HALF TABLET BY MOUTH ACTIVE ONCE DAILY AND TAKE ONE TABLET AT BEDTIME ### Indication: MOOD 11) RIVASTIGMINE TARTRATE 3MG CAP TAKE ONE CAPSULE BY MOUTH ACTIVE TWICE DAILY ### Indication: FOR DEMENTIA 12) SIMVASTATIN 40MG TAB TAKE ONE TABLET BY MOUTH AT BEDTIME FOR ACTIVE CHOLESTEROL Indication: FOR HIGH CHOLESTEROL 13) TAMSULOSIN HCL 0.4MG CAP TAKE TWO CAPSULES BY MOUTH AT ACTIVE BEDTIME Indication: FOR ENLARGED PROSTATE 14) TRAZODONE HCL 100MG TAB TAKE TWO TABLETS BY MOUTH AT BEDTIME ACTIVE NEEDED ### Indication: FOR INSOMNIA ASSOCIATED WITH DEPRESSION PAST [...] dose doxepin was not helpful for insomnia Cedaredge -- not tolerate due to confusion wellbutrin [...] considered likely - but dx remains unclear -patient recently started on Sinemet by neurologist for parkinsonian findings, diagnostic considerations have included Alzheimer's dementia, neuropsych [...] pt's safety is supervision by /family/assistants Previously carmina talked re considering elective inpt admission to [facility] for assessment and medication [...] noted by , the this dose resumed CONTINUE LEXAPRO 7.5 MG DAILY - of all the medications the patient has taken for depression and anxiety he seems to have had the best response to Lexapro at more modest dosing, although the responses have only been partial in terms of depression and anxiety -- we discussed consider further increase, but decided against increase today Note that we considered nortriptyline trial, but [...] reduction in clonazepam and Seroquel in previous appointments, and quetiapine in particular has been tapered down. And tapereed off depakote previously. trial of DECREASE QUETIAPINE TO 25 mg MG QHS (thus, dc of daytime dose). Continue gradual reducation as tolerated. Quetiapine may provide some reduction in anxiety/mild agitation. Quetiapine may also augment antidepressant. But we are discussing further reducing quetiapine to try to reduce potential side effect load. But we decided to leave the order the same, so there is the option to increase back to 12.5 mg daily and 25 mg nightly if patient does not tolerate decrease. CONTINUE CLONAZEPAM 0.25 MG TID, WITH ADDITIONAL 0.25 MG Q 24 HRS PRN ANXIETY (this is dose pt taking or less per day) (order as 0.25 mg qid prn). Some benefit [...] and falling, patient's will monitor for this. They may try having patient take more of the Klonopin prn in the morning when the anxiety is worse CONTINUE TRAZODONE 200 MG QHS PRN INSOMNIA [...] physician follows blood pressure, weights, lipids, glucose primary care to [facility] -- Kathy Cherry as primary care in [place] -- I have reviewed with Kathy Vieyra re pt previously See prior notes for discussions of previous neurologic [place] [facility] [place], suggesting Lewy Body Dementia. See Dr. Johnson's notes. But more recent evaluation by neurologist at [facility] may suggest other form of dementia. But [...] greatly appreciate his input. neurologist, Osman Ma, [facility] [phone] As noted before, note that the patient had a brain JEZ SPECT study at [facility]--10/31/2023, see my 11/02/24 note for discussion As noted previously, pt had psychiatry consult 01/15/24 at [facility] and his sent the assessment to me, by Dr. Orlin Fisher. I have reviewed this. The diagnoses by Dr Fisher included neurocognitive disorder, depression unspecified. Recommendations appreciated. I was also able to review w Dr. Fisher by phone - see my 06/22 note for more discussion Medication Reconciliation: Outpatient: Has the patient been taking medications as documented in the EMLR? YES: The patient has been taking medications as documented in the EMLR. Essential Medication List for Review used to complete this medication reconciliation. /erasto/ KATIE LLAMAS MD STAFF PSYCHIATRIST Signed: 04/05/2025 19:11 04/05/2025 ADDENDUM STATUS: COMPLETED AIMS Testing: AIMS (Mental Health Instrument) The patient was evaluated for symptoms of tardive dyskinesia using the AIMS. Total score for items 1-7: 0 /erasto/ KATIE LLAMAS MD STAFF PSYCHIATRIST Signed: 04/05/2025 19:14 04/06/2025 ADDENDUM STATUS: UNSIGNED You may not VIEW this UNSIGNED Addendum. KATIE LLAMAS [place] Apr 05, 2025 03:49 PM PSYCHIATRY NOTE: LOCAL TITLE: PSYCHIATRY NOTE STANDARD TITLE: PSYCHIATRY NOTE DATE OF NOTE: APR 05, 2025@15:49 ENTRY DATE: APR 05, 2025@15:49:15 AUTHOR: KATIE LLAMAS EXP COSIGNER: URGENCY: STATUS: COMPLETED PSYCHIATRY NOTE Has ADDENDA 35 min for encounter, including chart review, interview, charting chart reviewed Patient seen with his , Dennise Ongoing depressed mood and anxiety - overall, no change today. Affect blunted. No PI or delusions presented Denied AHs and VHs. Disorganized, again processing of info more slowly Again paucity of content noted. Denies SI and violent ideation. Cognitive exam seems to be notable for more memory problems and processing difficulties. MOCA 15/30 in 07/2024 Speech again has relatively long response latency, slow responses, limited content. Sleep generally ok Again, Dennise reports pt sometimes better in the evenings w less anxiety As noted in previous appts -- in general the patient has been very reluctant to change medcations - any change is difficult for him -- but see below for slow changes w agreed on. Note that pt started on sinemet by neuro previously Denies current psych med side effects; no daytime sedation; reports med compliance -- patient's manages medications as noted before, no h/o alcohol and drug abuse Patient's organizes his care. She is very supportive. Pt/ recently moved to [facility] wt 193 lb 03/2025 at home; VS ok in chart Active [...] Hypofunction 19. Benign prostatic hyperplasia (SNOMED CT 996096879) 20. Impaired Fasting Glucose 21. Exercise induced bronchospasm (SNOMED CT 060911127) 22. Hyperlipidemia (SNOMED CT 60332689) Active Outpatient Medications (including Supplies): Active Outpatient Medications Status 1) CARBIDOPA 25/LEVODOPA 100MG TAB TAKE 1 TABLET BY MOUTH TWICE ACTIVE DAILY FOR 3 DAYS, THEN TAKE 1 TABLET THREE TIMES A DAY TOLERATED 2) CLONAZEPAM 0.5MG TAB TAKE ONE-HALF TABLET BY MOUTH FOUR ACTIVE TIMES DAILY NEEDED Indication: ANXIETY 3) DICLOFENAC NA 1% TOP GEL APPLY 4 GRAMS TOPICALLY FOUR TIMES ACTIVE DAILY NEEDED - USE DOSING CARD PROVIDED IN BOX Indication: FOR OSTEOARTHRITIS 4) ESCITALOPRAM OXALATE 5MG TAB TAKE ONE AND ONE-HALF TABLETS ACTIVE BY MOUTH ONCE DAILY FOR MOOD/DEPRESSION ### Indication: FOR MAJOR DEPRESSIVE DISORDER 5) MELATONIN 5MG CAP/TAB TAKE TWO CAPSULE/TABLET BY MOUTH AT ACTIVE BEDTIME NEEDED Indication: FOR INSOMNIA 6) MEMANTINE HCL 10MG TAB TAKE ONE TABLET BY MOUTH TWICE DAILY ACTIVE ### Indication: DEMENTIA 7) METOPROLOL SUCCINATE 100MG SA TAB TAKE ONE TABLET BY MOUTH ACTIVE (S) ONCE DAILY FOR BLOOD PRESSURE/HEART Indication: FOR HIGH BLOOD PRESSURE 8) MULTIVIT/OPHTH AREDS2/LUTE/ZEAX CAP/TAB TAKE 1 CAPSULE BY ACTIVE (S) MOUTH TWICE DAILY IN THE MORNING AND EVENING, WITH FOOD Indication: FOR VITAMIN SUPPLEMENTATION 9) POLYETHYLENE GLYCOL 3350 ORAL PWDR TAKE 17 GRAMS(FILL CAP TO ACTIVE 17GM LINE) BY MOUTH ONCE DAILY NEEDED [MIX WITH 4 TO 8OZ. OF BEVERAGE] Indication: FOR CONSTIPATION 10) QUETIAPINE FUMARATE 25MG TAB TAKE ONE-HALF TABLET BY MOUTH ACTIVE ONCE DAILY AND TAKE ONE TABLET AT BEDTIME ### Indication: MOOD 11) RIVASTIGMINE TARTRATE 3MG CAP TAKE ONE CAPSULE BY MOUTH ACTIVE TWICE DAILY ### Indication: FOR DEMENTIA 12) SIMVASTATIN 40MG TAB TAKE ONE TABLET BY MOUTH AT BEDTIME FOR ACTIVE CHOLESTEROL Indication: FOR HIGH CHOLESTEROL 13) TAMSULOSIN HCL 0.4MG CAP TAKE TWO CAPSULES BY MOUTH AT ACTIVE BEDTIME Indication: FOR ENLARGED PROSTATE 14) TRAZODONE HCL 100MG TAB TAKE TWO TABLETS BY MOUTH AT BEDTIME ACTIVE NEEDED ### Indication: FOR INSOMNIA ASSOCIATED WITH DEPRESSION PAST [...] dose doxepin was not helpful for insomnia [place]ed[place] -- not tolerate due to confusion wellbutrin [...] considered likely - but dx remains unclear -patient recently started on Sinemet by neurologist for parkinsonian findings, diagnostic considerations have included Alzheimer's dementia, neuropsych [...] pt's safety is supervision by /family/assistants Previously carmina talked re considering elective inpt admission to [facility] for assessment and medication [...] noted by , the this dose resumed CONTINUE LEXAPRO 7.5 MG DAILY - of all the medications the patient has taken for depression and anxiety he seems to have had the best response to Lexapro at more modest dosing, although the responses have only been partial in terms of depression and anxiety -- we discussed consider further increase, but decided against increase today Note that we considered nortriptyline trial, but [...] reduction in clonazepam and Seroquel in previous appointments, and quetiapine in particular has been tapered down. And tapereed off depakote previously. trial of DECREASE QUETIAPINE TO 25 mg MG QHS (thus, dc of daytime dose). Continue gradual reducation as tolerated. Quetiapine may provide some reduction in anxiety/mild agitation. Quetiapine may also augment antidepressant. But we are discussing further reducing quetiapine to try to reduce potential side effect load. But we decided to leave the order the same, so there is the option to increase back to 12.5 mg daily and 25 mg nightly if patient does not tolerate decrease. CONTINUE CLONAZEPAM 0.25 MG TID, WITH ADDITIONAL 0.25 MG Q 24 HRS PRN ANXIETY (this is dose pt taking or less per day) (order as 0.25 mg qid prn). Some benefit [...] and falling, patient's will monitor for this. They may try having patient take more of the Klonopin prn in the morning when the anxiety is worse CONTINUE TRAZODONE 200 MG QHS PRN INSOMNIA [...] physician follows blood pressure, weights, lipids, glucose primary care to [facility] -- aKthy Cherry as primary care in [place] -- I have reviewed with Kathy Vieyra re pt previously See prior notes for discussions of previous neurologic [place] [facility] [place], suggesting Lewy Body Dementia. See Dr. Johnson's notes. But more recent evaluation by neurologist at [facility] may suggest other form of dementia. But [...] greatly appreciate his input. neurologist, Osman Ma, [facility] [phone] As noted before, note that the patient had a brain JEZ SPECT study at [facility]--10/31/2023, see my 11/02/24 note for discussion As noted previously, pt had psychiatry consult 01/15/24 at [facility] and his sent the assessment to me, by Dr. Orlin Fisher. I have reviewed this. The diagnoses by Dr Fisher included neurocognitive disorder, depression unspecified. Recommendations appreciated. I was also able to review w Dr. Fisher by phone - see my 06/22 note for more discussion Medication Reconciliation: Outpatient: Has the patient been taking medications as documented in the EMLR? YES: The patient has been taking medications as documented in the EMLR. Essential Medication List for Review used to complete this medication reconciliation. /erasto/ KATIE LLAMAS MD STAFF PSYCHIATRIST Signed: 04/05/2025 19:11 04/05/2025 ADDENDUM STATUS: COMPLETED please see rtc order, please call pt's to schedule /azeb LLAMAS MD STAFF PSYCHIATRIST Signed: 04/05/2025 19:11 Receipt Acknowledged By: 04/06/2025 10:53 /azeb Fernández ADVANCED LIBRARY HELPER 04/05/2025 ADDENDUM STATUS: COMPLETED AIMS Testing: AIMS (Mental Health Instrument) The patient was evaluated for symptoms of tardive dyskinesia using the AIMS. Total score for items 1-7: 0 /azeb LLAMAS MD STAFF PSYCHIATRIST Signed: 04/05/2025 19:14 04/06/2025 ADDENDUM STATUS: COMPLETED data analyst report writer called to schedule rTc placed, lvm for cb at [phone] 14 day letter mailed rtc dc 04/21/2025 /azeb Fernández ADVANCED LIBRARY HELPER Signed: 04/06/2025 10:54 KATIE LLAMAS
--- OUTSIDE RECORDS SUMMARY | 2025-04-12 03:30 | XMS_ITS ---
Author Name [facility] [place] Organization [facility] [place] Address [address] [place] [address] Care Team Providers Care Ground Control Approach Technician Name Role Phone IVAN VELAZQUEZ Primary Care [...] (PPO) BASIC SELF Aug 21, 2013 [id number] [phone] MIKEELVIACELIO BARAHONA PATIENT ANTHEM [place] FEP PREFERRED PROVIDER ORGANIZAT ION (PPO) FEP BASIC IND Aug 21, 2013 111 [id number] [phone] CELIO GARDNER PATIENT ANTHEM FEP PREFERRED PROVIDER ORGANIZAT ION (PPO) FEP BASIC SELF Aug 21, 2013 111 [id number] [phone] GISELL CELIO PATIENT BCBS FEP PREFERRED PROVIDER ORGANIZAT ION (PPO) [id number] Aug 21, 2013 111 [id number] CELIO GARDNER PATIENT BCBS YOLANDA ATTN FEP CLAIMS PREFERRED PROVIDER ORGANIZAT ION (PPO) FEP BASIC IND Aug 21, 2013 111 [id number] [phone] CELIO GARDNER PATIENT [place] FEP PREFERRED PROVIDER ORGANIZAT ION (PPO) FEP BASIC IND Aug 21, 2013 111 [id number] [phone] CELIO GARDNER PATIENT [place] FEP PREFERRED PROVIDER ORGANIZAT ION (PPO) BASIC INDIV IDUAL Aug 21, 2013 111 [id number] [phone] CELIO JAMESON PATIENT [place] OF [place] FEP PREFERRED PROVIDER ORGANIZAT ION (PPO) BASIC SELF Aug 21, 2013 111 [id number] [phone] CELIO GARDNER PATIENT [place] FEP PREFERRED PROVIDER ORGANIZAT ION (PPO) BASIC SELF Aug 21, 2013 111 [id number] CELIO JAMESON PATIENT [place] FEP DENTAL DENTAL INSURANCE BASIC Aug 21, 2013 DENTAL [id number] CELIO GARDNER PATIENT [place] FEP PREFERRED PROVIDER ORGANIZAT ION (PPO) BASIC SELF Aug 21, 2013 111 [id number] CELIO GARDNER PATIENT [place] FEDERAL PREFERRED PROVIDER ORGANIZAT ION (PPO) BASIC SELF Aug 21, 2013 111 [id number] CELIO GARDNER PATIENT [place] FED[place] PREFERRED PROVIDER ORGANIZAT ION (PPO) STAND [place] FAMIL Y Aug 18, 2006 105 [id number] CELIO GARDNER PATIENT [employer] BCBS FEP MEDICARE SECONDARY (NO B EXC) FEHB BASIC MEDSE C Aug 21, 2013 111 [id number] [phone] CELIO GARDNER PATIENT [employer] BCBS FEP PREFERRED PROVIDER ORGANIZAT ION (PPO) FEP STAND [place] Sep 23, 2006 [id number] CELIO GARDNER PATIENT [employer] FEP ([id number]) PRESCRIPT ION FEP RX Aug 21, 2013 [id number] [phone] CELIO GARDNER [employer] FEP [id number] PRESCRIPT ION FEPRX Aug 21, 2013 [id number] [phone] CELIO GARDNER [place] FEP BCBS PRESCRIPT ION CAREM ARK FEPRX Aug 21, 2013 [id number] CELIO JAMESON [place] FEP RX [id number] PRESCRIPT ION [id number] Aug 21, 2013 [id number] CELIO GARDNER [employer]-F EP BCBS PRESCRIPT ION FEP Aug 21, 2013 [id number] CELIO GARDNER MEDICARE ([facility]) MEDICARE () PART A Nov 16, 2021 PART A [id number] [phone] CELIO GARDNER PATIENT MEDICARE ([facility]) MEDICARE (M) PART B Nov 16, 2021 PART B [id number] [phone] CELIO GARDNER PATIENT MEDICARE ([facility]) MEDICARE (M) PART A Nov 16, 2021 PART A [id number] CELIO GARDNER PATIENT MEDICARE ([facility]) MEDICARE ) PART B Nov 16, 2021 PART B [id number] CELIO GARDNER PATIENT MEDICARE ([facility]) MEDICARE () PART A Nov 16, 2021 PART A [id number] [phone] CELIO GARDNER PATIENT MEDICARE (WN) MEDICARE ) PART B Nov 16, 2021 PART B [id number] [phone] CELIO GARDNER PATIENT MEDICARE (WN) MEDICARE () PART A Nov 16, 2021 PART A [id number] [phone] CELIO GARDNER PATIENT MEDICARE (WN) MEDICARE () PART B Nov 16, 2021 PART B [id number] CELIO GARDNER PATIENT MEDICARE (WN) MEDICARE () PART A Nov 16, 2021 PART A [id number] CELIO GARDNER PATIENT MEDICARE (WNR) MEDICARE (M) PART B Nov 16, 2021 PART B [id number] [phone] CELIO GARDNER PATIENT MEDICARE (WNR) MEDICARE (M) PART A Nov 16, 2021 PART A [id number] [phone] CELIO GARDNER PATIENT MEDICARE (WNR) MEDICARE (M) PART B Nov 16, 2021 PART B [id number] CELIO GARDNER PATIENT MEDICARE PART D (WNR) MEDICARE (M) PART D Aug 18, 2023 PART D [id number] [phone] CELIO GARDNER PATIENT Selected Encounter This section includes the information on record at [place] for the Encounter. Date/Time Encounter Type Encounter Description Reason Provider Source Apr 12, 2025 08:30 AM Outpatient Encounter [facility] ADV PRAC PROV(TRUSS PULLER HELPER,INVENTORY CONTROL COORDINATOR,PA) ICD-10-CM Z00.01 Encounter for general adult medical exam w abnormal findings Parish VELAZQUEZ Alcides Encounter Template Text not used by [place] Assessments - Encounter Diagnoses This section includes the primary and secondary diagnoses documented for the Encounter. Date/Time Primary/Secondary Diagnosis Diagnosis Name Provider Source Jun 15, 2025 05:59 PM PRIMARY Encounter for general adult medical exam w abnormal findings IVAN VELAZQUEZ [place] [facility] [place] [facility] Jun 15, 2025 05:59 PM SECONDARY Anxiety disorder, unspecified IVAN VELAZQUEZ [place] [facility] [place] [facility] Jun 15, 2025 05:59 PM SECONDARY Benign prostatic hyperplasia without lower urinry tract symp IVAN VELAZQUEZ [facility] [place] [facility] Jun 15, 2025 05:59 PM SECONDARY Constipation, unspecified DAVID VELAZQUEZTHIA [place] [facility] [place] [facility] Jun 15, 2025 05:59 PM SECONDARY Hyperlipidemia, unspecified DAVID VELAZQUEZTHIA [place] [facility] [place] [facility] Jun 15, 2025 05:59 PM SECONDARY Neurocognitive disorder with Lewy bodies IVAN VELAZQUEZ [facility] Plan of Treatment: Future Appointments (+ 6 months) and Future Tests (+/- 45 days) The Plan of Treatment section includes future care activities for the patient [facility] This section includes future appointments and future orders which are active, pending or scheduled. Future Appointments This section includes appointments that were scheduled to occur 6 months from the date of the Encounter, up to a maximum of 20 appointments. The data comes from all [place] treatment facilities. Appointment Date/Time Appointment Type Appointme nt Facility Name May 24, 2025 03:30 PM AMBULATORY - PSYCHIATRY [facility] Jul 05, 2025 03:00 PM AMBULATORY - MEDICINE [facility] Jul 05, 2025 03:30 PM AMBULATORY - PSYCHIATRY [facility] Jul 22, 2025 09:45 AM [facility] Jul 27, 2025 09:00 AM AMBULAT[facility] - MEDICINE [facility] Aug 23, 2025 03:30 PM AMBULATORY - PSYCHIATRY [facility] Social History: Smoking Status (Most current) and Tobacco Use (All prior to encounter date) This section includes the most current, and the historical, smoking and tobacco- related health factors from the PR facility where the Encounter took place. Current Smoking Status This section includes the most current smoking, or tobacco-related health factor, from the PR facility where the Encounter took place. Date/Time Current Smoking Status Comment Yuniel padilla Sep 17, 2021 11:00 AM [facility] Tobacco Use History This section includes a history of the smoking, or tobacco-related health factors, that were collected on or before the date of the Encounter. The data comes from the PR facility where the Encounter took place. Date/Time Smoking Status/Tobac co Use Comment Facility Sep 17, 2021 11:00 AM VA-TOBACCO QUIT 15 YRS OR MORE [facility] [place] [facility] Mar 01, 2020 01:30 PM VA-TOBACCO FORMER USER [facility] Mar 01, 2020 01:30 PM VA-TOBACCO QUIT 15 YRS OR MORE [facility] Jan 20, 2019 09:37 AM [facility]ACCO [facility] Dec 11, 2017 05:17 PM QUIT TOBACCO USE > 7 YEARS AGO [facility] Jan 20, 2017 03:12 PM QUIT TOBACCO USE > 7 YEARS AGO [facility] January 09, 2016 08:48 AM QUIT TOBACCO USE > 7 YEARS AGO . [facility] Jun 09, 2006 05:45 PM LIFETIME NON-TOBACCO USER [facility] Aug 22, 2003 03:27 PM HISTORY OF SMOKING [facility] Aug 22, 2003 03:27 PM QUIT TOBACCO USE IN PAST YEAR [facility] Jun 24, 2003 12:01 PM CURRENT SMOKER about 1 week/so [facility] Advance Directives: All historical and current Section Date Range: From patient's date of to the date document was created. This section includes ALL of a patient's completed or amended [place] Advance and Rescinded Directives. The entries below indicate that a directive exists for the patient, but an actual copy is not included with this document. The data comes from all [place] facilities. Date Advance Directives Provider Source Apr 08, 2024 ADVANCE DIRECTIVE LATONYA EWING [facility] Sep 19, 2021 GOALS & PREFERENCES TO INFORM LIFE-SUSTAINING TREATMENT PLAN MARY VIVAS [facility] Sep 19, 2020 ADVANCE DIRECTIVE ALANA MONIQUE [facility] Encounter Notes: All associated encounter notes This section contains the clinical notes associated to the Encounter. Date/Time Encounter Note(s) Provider Source Apr 12, 2025 08:30 AM [facility] ATTENDING NOTE: LOCAL TITLE: [facility] PROVIDER ASSESSMENT STANDARD TITLE: [facility] ATTENDING NOTE DATE OF NOTE: APR 12, 2025@08:30 ENTRY DATE: APR 12, 2025@08:30:18 AUTHOR: AWA VELAZQUEZ COSIGNER: URGENCY: STATUS: COMPLETED was seen for: [ ] Initial Review [x] Annual Review Identified by name, , address and facial recognition: Y VVC Ready: Yes [ ] No [x] HPI:69 yo M seen for annual exam accompanied by Raiza Bowden. Patient moved in w Raiza Bowden and is now at [place]. Other home is for sale. Patients only complaint is Anxiety and occ right knee pain. MH: Dr. Avalos therapy with Candelaria Luna neuro: [facility] [phone] Derm: Luizahermelinda Pitts eye: [place] Active problems - Computerized Problem List is the source for the followin. Frail elderly 2. Dry eyes 3. Anxiety 4. Hypertension 5. Seasonal allergies 6. Constipation 7. Malignant melanoma of lower limb s/p complete excision 05/07. comprehensive derm vist 06/06. Dr. Whitfield - [facility] 8. Microscopic hematuria 9. Lewy body dementia with behavioral disturbance reviewed Reviewed 10/31/23 brain imaging: decreased activity in bilateral basal ganglia. 10. 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 Severe major depression with psychotic features reviewed Reviewed 12. Sleep apnoea 13. Lower urinary tract symptoms due to benign prostatic hypertrophy 14. OA - Osteoarthritis of knee right total knee June,. 15. Internal hemorrhoids On 04/20/2008 otherwise normal colonoscopy. 16. Macular scar 17. Degeneration of cartilage AND/OR meniscus of knee Left knee scope January,. 18. Other Testicular Hypofunction 19. Benign prostatic hyperplasia (SNOMED CT 847048279) 20. Impaired Fasting Glucose 21. Exercise induced bronchospasm (SNOMED CT 065808091) 22. Hyperlipidemia (SNOMED CT 06487679) Allergies: PRAZOSIN The following VA and Non-VA meds were reconciled with patient: Active and Recently Outpatient Medications (excluding Supplies): Active Outpatient Medications Status 1) CLONAZEPAM 0.5MG TAB TAKE ONE-HALF TABLET BY MOUTH FOUR ACTIVE TIMES DAILY NEEDED Indication: ANXIETY 2) DICLOFENAC NA 1% TOP GEL APPLY 4 GRAMS TOPICALLY FOUR TIMES ACTIVE DAILY NEEDED - USE DOSING CARD PROVIDED IN BOX Indication: FOR OSTEOARTHRITIS 3) ESCITALOPRAM OXALATE 5MG TAB TAKE ONE AND ONE-HALF TABLETS ACTIVE BY MOUTH ONCE DAILY FOR MOOD/DEPRESSION ### Indication: FOR MAJOR DEPRESSIVE DISORDER 4) MELATONIN 5MG CAP/TAB TAKE TWO CAPSULE/TABLET BY MOUTH AT ACTIVE BEDTIME NEEDED Indication: FOR INSOMNIA 5) MEMANTINE HCL 10MG TAB TAKE ONE TABLET BY MOUTH TWICE DAILY ACTIVE ### Indication: DEMENTIA 6) METOPROLOL SUCCINATE 100MG SA TAB TAKE ONE TABLET BY MOUTH ACTIVE (S) ONCE DAILY FOR BLOOD PRESSURE/HEART Indication: FOR HIGH BLOOD PRESSURE 7) MULTIVIT/OPHTH AREDS2/LUTE/ZEAX CAP/TAB TAKE 1 CAPSULE BY ACTIVE (S) MOUTH TWICE DAILY IN THE MORNING AND EVENING, WITH FOOD Indication: FOR VITAMIN SUPPLEMENTATION 8) POLYETHYLENE GLYCOL 3350 ORAL PWDR TAKE 17 GRAMS(FILL CAP TO ACTIVE 17GM LINE) BY MOUTH ONCE DAILY NEEDED [MIX WITH 4 TO 8OZ. OF BEVERAGE] Indication: FOR CONSTIPATION 9) QUETIAPINE FUMARATE 25MG TAB TAKE ONE-HALF TABLET BY MOUTH ACTIVE ONCE DAILY AND TAKE ONE TABLET AT BEDTIME ### Indication: MOOD 10) RIVASTIGMINE TARTRATE 3MG CAP TAKE ONE CAPSULE BY MOUTH ACTIVE TWICE DAILY ### Indication: FOR DEMENTIA 11) SIMVASTATIN 40MG TAB TAKE ONE TABLET BY MOUTH AT BEDTIME FOR ACTIVE CHOLESTEROL Indication: FOR HIGH CHOLESTEROL 12) TAMSULOSIN HCL 0.4MG CAP TAKE TWO CAPSULES BY MOUTH AT ACTIVE BEDTIME Indication: FOR ENLARGED PROSTATE 13) TRAZODONE HCL 100MG TAB TAKE TWO TABLETS BY MOUTH AT BEDTIME ACTIVE NEEDED ### Indication: FOR INSOMNIA ASSOCIATED WITH DEPRESSION Inactive Outpatient Medications Status 1) ASPIRIN 81MG EC TAB TAKE ONE TABLET BY MOUTH ONCE DAILY TO PREVENT STROKE/HEART ATTACK Indication: FOR MYOCARDIAL REINFARCTION PREVENTION 2) CARBIDOPA 25/LEVODOPA 100MG TAB TAKE 1 TABLET BY MOUTH TWICE DAILY FOR 3 DAYS, THEN TAKE 1 TABLET THREE TIMES A DAY TOLERATED 3) DOCUSATE NA 100MG CAP TAKE THREE CAPSULES BY MOUTH AT BEDTIME NEEDED TO SOFTEN STOOL Indication: FOR CONSTIPATION 16 Total Medications What brings you fanny? TV Recent Falls Y( ) N(x) Recent Infections Y( ) N(x) Recent Hospitalizations Y ( ) N(x) PSxHX: [place] has pmhx of malignant melanoma of lower limb s/p complete excision 05/07. knee right total knee June,. 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 COMBAT SERVICE INDICATED: No ADLS: Needs assistance with ( )ambulation (x) dressing ( )toileting ( )transferring (x) bathing (x) feeding ( ) incontinence care ( )no ADL assistance needed Review of Systems: CONSTITUTIONAL: +weight loss d/t less caloric intake, no fever, no loss of appetite HEENT: +[place] wears hearing aides No vision change, no blurring of vision no difficulty swallowing CARDIOVASCULAR: No cough, SOB, no chest pain, no palpitations, DIAS GASTROINTESTINAL: No abdominal pain, no nausea, no vomiting, bowels ok w miralax ~ every other day GENITOURINARY: No weak urine stream, no voiding dysfunction DERMATOLOGICAL: No new or changing skin lesions, no rash MUSCULOSKELETAL: occ right knee pain uses topical pain medication w +effect PSYCHIATRIC: + anxiety, no trouble sleeping, no depression NEUROLOGIC: No headache, no numbness, no tingling, no weakness, + memory loss, no dizziness, occassionally upon awakening states I don't feel well VITAL SIGNS: B/P: 105/70 (04/12/2025 15:33) Pulse: 80 (04/12/2025 15:33) Temperature: 98.6 F [37.0 C] (04/12/2025 15:33) Weight: 194 lb [88.00 kg] (04/12/2025 15:33) Height: 72 in [182.9 cm] (08/20/2021 15:11) BMI: BMI: 26.4 Pain: 1 (04/12/2025 15:33) (0-10 scale) Pulse Ox:Measurement DT POx (L/MIN)(%) 04/12/2025 15:33 95 PE: GENERAL: Pt is appropriately dressed/groomed, good eye contact. NAD HEENT: normalcephalic, thyroid nonpalpable. conj clear, Oropharynx clear, tongue moist neck supple, no JVD, no carotid bruits SKIN: warm & dry, no rash CV: RRR, nl s1,s2 no M/G/R LUNGS: Clear to auscultation bilaterally, no use of accessory muscles ABD: NBS, soft, NT, ND, no masses or organomegaly appreciated EXTREMITIES: RODRIGUEZ, warm, no edema, +radial and PP NEURO/PSYCH: A+Ox2, mood/affect baseline anxious, thought/speech patterns appropriately conversant without delusional content Get up and go normal ( )with (x) without assistive device. ( )cane ( ) walker Future Clinic Visits 05/24/2025 15:30 [facility] [place] [facility] 12/27/2025 14:00 [facility]ET[facility] 3 A/P: Active problems - Computerized Problem List is the source for the following: >Anxiety >Lewy body dementia with behavioral disturbance >Neurocognitive disorder >Severe major depression with psychotic features seen by neuro 01/06/25 started on sinement when was taking noted loose stools, was taking once daily and just started taking BID last week. Has home BP monitor to evaluate BP if feeling unwell. consider cognitive neurologist heavy metals ordered followed by MH-cont w POC per note: 04/05/25 trial of DECREASE QUETIAPINE TO 25 mg MG QHS (thus, dc of daytime dose). Continue gradual reduction as tolerated. Quetiapine may provide some reduction in anxiety/mild agitation. Quetiapine may also augment antidepressant. But we are discussing further reducing quetiapine to try to reduce potential side effect load. But we decided to leave the order the same, so there is the option to increase back to 12.5 mg daily and 25 mg nightly if patient does not tolerate decrease. >Lower urinary tract symptoms due to benign prostatic hypertrophy >Other Testicular Hypofunction >Benign prostatic hyperplasia stable on flomax 0.8mg qhs -Hyperlipidemia - on zocor, update lipids, cont to monitor. LDL 95 05/11 -Malignant melanoma of lower limb s/p complete excision 05/07 - encouraged f/u PRN w dermatology to evaluate skin. Skin eval today non concerning -HTN: stable on BB -OA: stable, previously on celebrex, will order dicloenac topical for PRN use -constipation:Stable w colace q HS and miralax ~ every other day HM: brushes teeth BID, not interested in dentist, no obvious concerns rediscussed ##Long discussion on LST-Patient wants DNR/DNI but became anxious when asked to sign it. His HCP is invoked w Dennise could sign it but she wanted patient to agree and not override him. Reinforced that since document is not signed EMS would treat him as a full code.## Tika Gamble HCP #1, Elizabeth Sevilla (daughter) HCP #2 Review of medical records: 10 min Time spent w patient including shared decision makin min Post visit documentation: [address] time: 80 min F/U 6-12 months, sooner PRN. Labs 09/12 No barriers; Patient understands and agrees to current treatment plan. Medication Reconciliation: Medication List: JLV Link Data on this list may not be complete. Please check JLV. Allergies/ADRs (Tool #5) FACILITY ALLERGY/ADR -------- MORTEZA TRONCOSO [facility] NO KNOWN ALLERGIES [facility] NO KNOWN ALLERGIES [facility] [place] [facility] PRAZOSIN [facility] NO KNOWN ALLERGIES [facility] NO KNOWN ALLERGIES Med. Reconciliation (Tool #1) INCLUDED IN THIS LIST: Alphabetical list of active outpatient prescriptions dispensed from this PR (local) and dispensed from another [place] or DoD facility (remote) as well as inpatient orders (local pending and active), local clinic medications, locally documented non-VA medications, and local prescriptions that have or been discontinued in the past 90 days. Non-VA Meds Last Documented On: Mar 18, 2024 NOTE The display of VA prescriptions dispensed from another PR or [facility] facility (remote) is limited to active outpatient prescription entries matched to National Drug File at the originating site and may not include some items such as investigational drugs, compounds, etc. NOT INCLUDED IN THIS LIST: Medications self-entered by the patient into personal health records (i.e. [employer]) are NOT included in this list. Non-VA medications documented outside this PR, remote inpatient orders (regardless of status) and remote clinic medications are NOT included in this list. The patient and provider must always discuss medications the patient is taking, regardless of where the medication was dispensed or obtained. OUTPT ASPIRIN 81MG EC TAB (Status = ) TAKE ONE TABLET BY MOUTH ONCE DAILY TO PREVENT STROKE/HEART ATTACK Rx# [id number] Last Released: 12/11/24 Qty/Days Supply: Rx Expiration Date: 04/02/25 Refills Remainin Indication: FOR MYOCARDIAL REINFARCTION PREVENTION OUTPT ASPIRIN 81MG EC TAB (Status = Pending) TAKE ONE TABLET BY MOUTH ONCE DAILY TO PREVENT STROKE/HEART ATTACK Renewed from Rx# [id number] Qty/Days Supply: 120 Login Date: 04/12/25 Refills Ordered: 3 OUTPT CARBIDOPA 25/LEVODOPA 100MG TAB (Status = ) TAKE 1 TABLET BY MOUTH TWICE DAILY FOR 3 DAYS, THEN TAKE 1 TABLET THREE TIMES A DAY TOLERATED Rx# [id number] Last Released: 01/12/25 Qty/Days Supply: 267/90 Rx Expiration Date: 04/06/25 Refills Remainin OUTPT CLONAZEPAM 0.5MG TAB (Status = Active) TAKE ONE-HALF TABLET BY MOUTH FOUR TIMES DAILY NEEDED ANXIETY Rx# [id number] Last Released: 03/29/25 Qty/Days Supply: 60/30 Rx Expiration Date: 07/14/25 Refills Remainin Indication: ANXIETY OUTPT DICLOFENAC NA 1% TOP GEL (Status = Active) APPLY 4 GRAMS TOPICALLY FOUR TIMES DAILY NEEDED FOR OSTEOARTHRITIS - USE DOSING CARD PROVIDED IN BOX Rx# [id number] Last Released: 10/13/24 Qty/Days Supply: 100/30 Rx Expiration Date: 04/30/25 Refills Remainin Indication: FOR OSTEOARTHRITIS OUTPT DOCUSATE NA 100MG CAP (Status = ) TAKE THREE CAPSULES BY MOUTH AT BEDTIME NEEDED FOR CONSTIPATION TO SOFTEN STOOL Rx# [id number] Last Released: 12/11/24 Qty/Days Supply: 300/90 Rx Expiration Date: 04/02/25 Refills Remainin Indication: FOR CONSTIPATION OUTPT DOCUSATE NA 100MG CAP (Status = Pending) TAKE 2 CAPSULES BY MOUTH AT BEDTIME NEEDED TO SOFTEN STOOL mail 05/18/25 Login Date: 04/12/25 Qty/Days Supply: 180/90 Refills Ordered: 3 OUTPT ESCITALOPRAM OXALATE 5MG TAB (Status = Discontinued) TAKE ONE TABLET BY MOUTH ONCE DAILY FOR MOOD/DEPRESSION Rx# [id number] Last Released: 01/13/25 Qty/Days Supply: 60/60 Rx Expiration Date: 01/12/26 Refills Remainin Indication: FOR MAJOR DEPRESSIVE DISORDER OUTPT ESCITALOPRAM OXALATE 5MG TAB (Status = Active) TAKE ONE AND ONE-HALF TABLETS BY MOUTH ONCE DAILY FOR MOOD/DEPRESSION ### Rx# [id number] Last Released: 03/29/25 Qty/Days Supply: 90/60 Rx Expiration Date: 02/16/26 Refills Remainin Indication: FOR MAJOR DEPRESSIVE DISORDER OUTPT MELATONIN 5MG CAP/TAB (Status = Active) TAKE TWO CAPSULE/TABLET BY MOUTH AT BEDTIME NEEDED FOR INSOMNIA Rx# [id number] Last Released: 09/16/24 Qty/Days Supply: 180/90 Rx Expiration Date: 09/01/25 Refills Remainin Indication: FOR INSOMNIA OUTPT MEMANTINE HCL 10MG TAB (Status = Discontinued) TAKE ONE TABLET BY MOUTH TWICE DAILY DEMENTIA Rx# [id number] Last Released: 02/08/25 Qty/Days Supply: 60/30 Rx Expiration Date: 09/01/25 Refills Remainin Indication: DEMENTIA OUTPT MEMANTINE HCL 10MG TAB (Status = Active) TAKE ONE TABLET BY MOUTH TWICE DAILY ### Rx# [id number] Last Released: 03/29/25 Qty/Days Supply: 60/30 Rx Expiration Date: 02/16/26 Refills Remainin Indication: DEMENTIA OUTPT METOPROLOL SUCCINATE 100MG SA TAB (Status = Active/Suspended) TAKE ONE TABLET BY MOUTH ONCE DAILY FOR BLOOD PRESSURE/HEART Rx# [id number] Last Released: 02/24/25 Qty/Days Supply: 90/90 Rx Expiration Date: 11/24/25 Refills Remainin Indication: FOR HIGH BLOOD PRESSURE OUTPT MULTIVIT/OPHTH AREDS2/LUTE/ZEAX CAP/TAB (Status = Active/Suspended) TAKE 1 CAPSULE BY MOUTH TWICE DAILY FOR VITAMIN SUPPLEMENTATION IN THE MORNING AND EVENING, WITH FOOD Rx# [id number] Last Released: 02/28/25 Qty/Days Supply: 120/60 Rx Expiration Date: 12/31/25 Refills Remainin Indication: FOR VITAMIN SUPPLEMENTATION OUTPT POLYETHYLENE GLYCOL 3350 ORAL PWDR (Status = Active) TAKE 17 GRAMS(FILL CAP TO 17GM LINE) BY MOUTH ONCE DAILY NEEDED FOR CONSTIPATION [MIX WITH 4 TO 8OZ. OF BEVERAGE] Rx# [id number] Last Released: 03/30/25 Qty/Days Supply: 238/30 Rx Expiration Date: 10/01/25 Refills Remainin Indication: FOR CONSTIPATION OUTPT QUETIAPINE FUMARATE 25MG TAB (Status = Discontinued) TAKE ONE-HALF TABLET BY MOUTH ONCE DAILY AND TAKE ONE AND ONE-HALF TABLETS AT BEDTIME MOOD Rx# [id number] Last Released: 01/13/25 Qty/Days Supply: 60/30 Rx Expiration Date: 01/12/26 Refills Remainin Indication: MOOD OUTPT QUETIAPINE FUMARATE 25MG TAB (Status = Active) TAKE ONE-HALF TABLET BY MOUTH ONCE DAILY AND TAKE ONE TABLET AT BEDTIME ### Rx# [id number] Last Released: 02/17/25 Qty/Days Supply: 45/30 Rx Expiration Date: 02/16/26 Refills Remainin Indication: MOOD OUTPT RIVASTIGMINE TARTRATE 3MG CAP (Status = Discontinued) TAKE ONE CAPSULE BY MOUTH TWICE DAILY FOR DEMENTIA Rx# [id number] Last Released: 02/08/25 Qty/Days Supply: 6030 Rx Expiration Date: 09/28/25 Refills Remainin Indication: FOR DEMENTIA OUTPT RIVASTIGMINE TARTRATE 3MG CAP (Status = Active) TAKE ONE CAPSULE BY MOUTH TWICE DAILY FOR DEMENTIA ### Rx# [id number] Last Released: 04/07/25 Qty/Days Supply: 6030 Rx Expiration Date: 02/16/26 Refills Remainin Indication: FOR DEMENTIA OUTPT SIMVASTATIN 40MG TAB (Status = Active) TAKE ONE TABLET BY MOUTH AT BEDTIME FOR CHOLESTEROL Rx# [id number] Last Released: 03/09/25 Qty/Days Supply: 90/90 Rx Expiration Date: 12/22/25 Refills Remainin Indication: FOR HIGH CHOLESTEROL OUTPT TAMSULOSIN HCL 0.4MG CAP (Status = Active) TAKE TWO CAPSULES BY MOUTH AT BEDTIME FOR ENLARGED PROSTATE Rx# [id number] Last Released: 02/24/25 Qty/Days Supply: 180/90 Rx Expiration Date: 06/18/25 Refills Remainin Indication: FOR ENLARGED PROSTATE OUTPT TRAZODONE HCL 100MG TAB (Status = Discontinued) TAKE TWO TABLETS BY MOUTH AT BEDTIME NEEDED FOR INSOMNIA ASSOCIATED WITH DEPRESSION Rx# [id number] Last Released: 02/08/25 Qty/Days Supply: 6030 Rx Expiration Date: 09/01/25 Refills Remainin Indication: FOR INSOMNIA ASSOCIATED WITH DEPRESSION OUTPT TRAZODONE HCL 100MG TAB (Status = Active) TAKE TWO TABLETS BY MOUTH AT BEDTIME NEEDED FOR INSOMNIA ASSOCIATED WITH DEPRESSION ### Rx# [id number] Last Released: 03/29/25 Qty/Days Supply: 6030 Rx Expiration Date: 02/16/26 Refills Remainin Indication: FOR INSOMNIA ASSOCIATED WITH DEPRESSION SUPPLIES PHARMACY TERMS AND POSSIBLE PATIENT ACTIONS INPT = [place] inpatient order IV = PR intravenous medication OUTPT = [place] outpatient prescription PHARMACY POSSIBLE PATIENT TERMS EXPLANATION ACTIONS -------- ------ ACTIVE A prescription that can be If you have refills, filled at the local [place] pharmacy. you may request a refill of this prescription from your [place] pharmacy. CLINIC A medication you received during If you have questions a visit to a [place] clinic or about this medication emergency department. contact your [place] healthcare team. DISCONTINUED A prescription your provider has Contact your [place] stopped. It is no longer healthcare team if you available to be sent to you or need more of this picked up at the [place] pharmacy medication. window. A prescription which is [...] or out of prescription from either the [place] date, please tell your or non VA providers that was VA healthcare team. filled outside the VA. Or, it may be an aenw-oih-tdaibfu (OTC), herbal, dietary supplements or sample medication. [...] before this medication now. you run out. /erasto/ IVAN VELAZQUEZ RN,MSN,[facility] NURSE PRACTITIONER Signed: 04/12/2025 15:50 ECTOR VELAZQUEZ [facility]
--- OUTSIDE RECORDS SUMMARY | 2025-05-24 10:30 | XMS_ITS | Encounter Summary ---
Author Name [facility] [place] [facility] [place] Address [address] [place] [address] Care Team Providers Care Spring Fitter Helper Name Role Phone IVAN CHERRY Primary Care [...] (PPO) BASIC SELF Aug 21, 2013 111 [id number] [phone] EricMARIA ELENA CELIO PATIENT ANTHEM [place] FEP PREFERRED PROVIDER ORGANIZAT ION (PPO) FEP BASIC IND Aug 21, 2013 111 [id number] [phone] CELIO GARDNER PATIENT ANTHEM FEP PREFERRED PROVIDER ORGANIZAT ION (PPO) FEP BASIC SELF Aug 21, 2013 111 [id number] [phone] EricHONEYELVIACELIO BARAHONA PATIENT BCBS FEP PREFERRED PROVIDER ORGANIZAT ION (PPO) [id number] Aug 21, 2013 111 [id number] CELIO GARDNER PATIENT BCBS YOLANDA ATTN FEP CLAIMS PREFERRED PROVIDER ORGANIZAT ION (PPO) FEP BASIC IND Aug 21, 2013 111 [id number] [phone] CELIO GARDNER PATIENT BCBS [place] FEP PREFERRED PROVIDER ORGANIZAT ION (PPO) FEP BASIC IND Aug 21, 2013 111 [id number] [phone] CELIO GARDNER PATIENT [place]BS [place] FEP PREFERRED PROVIDER ORGANIZAT ION (PPO) BASIC INDIV IDUAL Aug 21, 2013 111 [id number] [phone] CELIO JAMESON PATIENT BCBS OF [place] FEP PREFERRED PROVIDER ORGANIZAT ION (PPO) BASIC SELF Aug 21, 2013 111 [id number] CELIO GARDNER PATIENT [place] FEP PREFERRED PROVIDER ORGANIZAT ION (PPO) BASIC SELF Aug 21, 2013 111 [id number] CELIO JAMESON PATIENT [place] FEP DENTAL DENTAL INSURANCE BASIC Aug 21, 2013 DENTAL [id number] [phone] CELIO GARDNER PATIENT [place] FEP PREFERRED PROVIDER ORGANIZAT ION (PPO) BASIC SELF Aug 21, 2013 111 [id number] CELIO GARDNER PATIENT [place] FEDERAL PREFERRED PROVIDER ORGANIZAT ION (PPO) BASIC SELF Aug 21, 2013 111 [id number] CELIO GARDNER PATIENT [place] FED[place] PREFERRED PROVIDER ORGANIZAT ION (PPO) STAND [facility] FAM[facility] Y Aug 18, 2006 105 [id number] CELIO GARDNER PATIENT KEHINDEFIRST BCBS FEP MEDICARE SECONDARY (NO B EXC) FEHB BASIC MEDSE C Aug 21, 2013 111 [id number] [phone] CELIO GARDNER PATIENT CAREFIRST BCBS FEP PREFERRED PROVIDER ORGANIZAT ION (PPO) FEP STAND MAGDALENA Sep 23, 2006 [id number] CELIO GARDNER PATIENT [place] FEP ([id number]) PRESCRIPT ION FEP RX Aug 21, 2013 [id number] [phone] CELIO GARDNER [place] FEP [id number] PRESCRIPT ION FEPRX Aug 21, 2013 [id number] [phone] CELIO GARDNER [place] FEP BCBS PRESCRIPT ION CAREAde ARK FEPRX Aug 21, 2013 [id number] [phone] CELIO JAMESON FEP RX [id number] PRESCRIPT ION [id number] Aug 21, 2013 [id number] [phone] CELIO GARDNER [place]-F EP BCBS PRESCRIPT ION FEP Aug 21, 2013 [id number] CELIO GARDNER PATIENT MEDICARE ([facility]) MEDICARE () PART A Nov 16, 2021 PART A [id number] [phone] CELIO GARDNER PATIENT MEDICARE ([facility]) MEDICARE (M) PART B Nov 16, 2021 PART B [id number] [phone] CELIO GARDNER PATIENT MEDICARE ([facility]) MEDICARE () PART A Nov 16, 2021 PART A [id number] CELIO GARDNER PATIENT MEDICARE ([facility]) MEDICARE () PART B Nov 16, 2021 PART B [id number] CELIO GARDNER PATIENT MEDICARE ([facility]) MEDICARE () PART A Nov 16, 2021 PART A [id number] [phone] CELIO GARDNER PATIENT MEDICARE ([facility]) MEDICARE (M) PART B Nov 16, 2021 PART B [id number] [phone] CELIO GARDNER PATIENT MEDICARE ([facility]) MEDICARE () PART A Nov 16, 2021 PART A [id number] CELIO GARDNER PATIENT MEDICARE ([facility]) MEDICARE (M) PART B Nov 16, 2021 PART B [id number] CELIO GARDNER PATIENT MEDICARE ([facility]) MEDICARE (M) PART A Nov 16, 2021 PART A [id number] [phone] CELIO GARDNER PATIENT MEDICARE (WNR) MEDICARE (M) PART B Nov 16, 2021 PART B [id number] [phone] CELIO GARDNER PATIENT MEDICARE (WNR) MEDICARE (M) PART A Nov 16, 2021 PART A [id number] CELIO GARDNER PATIENT MEDICARE (WNR) MEDICARE (M) PART B Nov 16, 2021 PART B [id number] CELIO GARDNER PATIENT MEDICARE PART D (WNR) MEDICARE (M) PART D Aug 18, 2023 PART D [id number] CELIO GARDNER PATIENT Selected Encounter This section includes the information on record at [place] for the Encounter. Date/Time Encounter Type Encounter Description Reason Provider Source May 24, 2025 03:30 PM OFFICE O/P EST MOD 30 MIN [facility] - IND ICD-10-CM F33.3 Major depressv disorder, recurrent, severe w psych symptoms VIGNESH LLAMAS [facility] Encounter Template Text not used by [place] Assessments - Encounter Diagnoses This section includes the primary and secondary diagnoses documented for the Encounter. Date/Time Primary/Secondary Diagnosis Diagnosis Name Provider Source Jul 11, 2025 03:53 PM PRIMARY Major depressv disorder, recurrent, severe w psych symptoms GURVINDER LLAMAS [place] Plan of Treatment: Future Appointments (+ 6 [...] Date/Time Appointment Type Appointme nt Facility Name Jul 05, 2025 03:00 PM AMBULATORY - MEDICINE [place] C [facility] VICKIE HERNANDEZ [facility] Jul 05, 2025 03:30 PM AMBULATORY - PSYCHIATRY [facility] Jul 22, 2025 09:45 AM AMBULATORY - NONE [place] [facility] VICKIE HERNANDE[facility] Jul 27, 2025 09:00 AM AMBULATORY - MEDICINE [place] [facility] [place] [facility] Aug 23, 2025 03:30 PM AMBULATORY - PSYCHIATRY [facility] Active, Pending, and Scheduled Orders [...] Date/Time Test Type Test Details Facility Name Jul 06, 2025 03:42 PM Consult Order [facility]-CARDIOLOGY Cons Enrollment Management Director's Choice [place] Advance Directives: All historical and current Section [...] ADVANCE DIRECTIVE LATONYA EWING [place] CNT RL [facility] Sep 19, 2021 GOALS & PREFERENCES TO INFORM LIFE-SUSTAINING TREATMENT PLAN MARY VIVAS [place] [facility] Sep 19, 2020 ADVANCE DIRECTIVE ALANA MONIQUE [place] [facility] Encounter Notes: All associated encounter notes This section contains the clinical notes associated to the Encounter. Date/Time Encounter Note(s) Provider Source May 24, 2025 06:33 PM ACCOUNTING OF DISC LOSURES NOTE: LOCAL TITLE: STATE PRESCRIPTION DRUG MONITORING PROGRAM STANDARD TITLE: ACCOUNTING OF DISCLOSURES NOTE DATE OF NOTE: MAY 24, 2025@18:33:04 ENTRY DATE: MAY 24, 2025@18:33:04 AUTHOR: GURVINDER LLAMAS EXP COSIGNER: URGENCY: STATUS: COMPLETED This PDMP query was submitted by Gurvinder Llamas MD. The clinical justification for this PDMP query is to review controlled substances prescribed outside of the [facility], and any additional information that may become available, as an important component of standard clinical care, and in accordance with [facility] policy. Patient information was shared with the PDMP Appriss [place]. No prescription(s) for controlled substances outside the [facility] were found in the last 90 days. /es/ GURVINDER LLAMAS MD STAFF PSYCHIATRIST Signed: 05/24/2025 18:40 GURVINDER LLAMAS [place] May 24, 2025 03:32 PM PSYCHIATRY NOTE: LOCAL TITLE: PSYCHIATRY NOTE STANDARD TITLE: PSYCHIATRY NOTE DATE OF NOTE: MAY 24, 2025@15:32 ENTRY DATE: MAY 24, 2025@15:32:56 AUTHOR: GURVINDER LLAMAS EXP COSIGNER: URGENCY: STATUS: COMPLETED 35 min for encounter, including chart review, interview, charting chart reviewed Patient seen with his , Dennise Ongoing depressed mood and anxiety - overall, no change on presentation today but pt's feels pt a little less anxious since increae quetiapine to 37.5 mg TTD (adjuated back to this betw appts) Affect blunted. No PI or delusions presented [...] is very supportive. Pt/ recently moved to [employer] wt 194 lb 03/2025 ; VS ok in chart Active problems - Computerized Problem List is the source for the followin. Shared care prescribing 2. Frail elderly 3. Dry eyes 4. Anxiety 5. Hypertension 6. Seasonal allergies 7. Constipation 8. Malignant melanoma of lower limb 9. Microscopic hematuria 10. Lewy body dementia with behavioral disturbance 11. Neurocognitive disorder 12. Severe major depression with psychotic features 13. Sleep apnoea 14. Lower urinary tract symptoms due to benign prostatic hypertrophy 15. OA - Osteoarthritis of knee 16. Internal hemorrhoids 17. Macular scar 18. Degeneration of cartilage AND/OR meniscus of knee 19. Other Testicular Hypofunction 20. Benign prostatic hyperplasia (SNOMED CT 938260379) 21. Impaired Fasting Glucose 22. Exercise induced bronchospasm (SNOMED CT 771125366) 23. Hyperlipidemia (SNOMED CT 08095416) Active Outpatient Medications (including Supplies): Active Outpatient Medications Status 1) ASPIRIN 81MG EC TAB TAKE ONE TABLET BY MOUTH ONCE DAILY TO ACTIVE PREVENT STROKE/HEART ATTACK Indication: FOR MYOCARDIAL REINFARCTION PREVENTION 2) CARBIDOPA 25/LEVODOPA 100MG TAB TAKE 1 TABLET BY MOUTH TWICE ACTIVE DAILY FOR 3 DAYS, THEN TAKE 1 TABLET THREE TIMES A DAY 3) CLONAZEPAM 0.5MG TAB TAKE ONE-HALF TABLET BY MOUTH FOUR ACTIVE TIMES DAILY NEEDED Indication: ANXIETY 4) DOCUSATE NA 100MG CAP TAKE TWO CAPSULES BY MOUTH AT BEDTIME ACTIVE NEEDED TO SOFTEN STOOL Indication: FOR CONSTIPATION 5) ESCITALOPRAM OXALATE 5MG TAB TAKE ONE AND ONE-HALF TABLETS ACTIVE (S) BY MOUTH ONCE DAILY FOR MOOD/DEPRESSION ### Indication: FOR MAJOR DEPRESSIVE DISORDER 6) MELATONIN 5MG CAP/TAB TAKE TWO CAPSULE/TABLET BY MOUTH AT ACTIVE BEDTIME NEEDED Indication: FOR INSOMNIA 7) MEMANTINE HCL 10MG TAB TAKE ONE TABLET BY MOUTH TWICE DAILY ACTIVE ### Indication: DEMENTIA 8) METOPROLOL SUCCINATE 100MG SA [...] ONE TABLET AT BEDTIME ### Indication: MOOD 12) RIVASTIGMINE TARTRATE 3MG CAP TAKE ONE CAPSULE BY MOUTH ACTIVE TWICE DAILY ### Indication: FOR DEMENTIA 13) SIMVASTATIN 40MG TAB [...] dose doxepin was not helpful for insomnia Guys -- not tolerate due to confusion wellbutrin [...] Major neurocognitive do -- sees neurology outside [place] - unspecified neurodegenerative process considered likely - [...] PLAN: Careful risk assessment performed. See C-SSRS 06/22/24, same today. The pt is probably low [...] safety is supervision by /family/assistants Previously talked w pt re considering elective inpt admission to [facility] for assessment and medication [...] the this dose resumed INCREASE LEXAPRO TO 10 MG DAILY - of all the medications the patient has taken for depression and anxiety he seems to have had the best response to Lexapro at more modest dosing, although the responses have only been partial in terms of depression and anxiety -- we discussed consider further increase, and decided to give trial of this Note that we considered nortriptyline trial, but [...] tapered down. And tapereed off depakote previously. But today we decided that quetiapine is calming for pt/improves quality of life - INCREASE QUETIAPINE TO 12.5 MG QID . Quetiapine provides some reduction in anxiety/mild agitation. Quetiapine may also augment antidepressant. Benefits outweigh risks CONTINUE CLONAZEPAM 0.25 MG TID, WITH ADDITIONAL [...] pressure, weights, lipids, glucose primary care to [facility] -- Kathy Cherry as primary care in [place] -- I have reviewed with Kathy Vieyra re pt previously See prior notes for discussions of previous neurologic evals of pt -- at [place] and [facility], suggesting Lewy Body Dementia. See Dr. Johnson's notes. But more recent evaluation by neurologist at [facility] may suggest other form of [...] greatly appreciate his input. neurologist, Osman Ma, [facility] [phone] As noted before, note that the patient had a brain JEZ SPECT study at [facility]--10/31/2023, see my 11/02/24 note for discussion As noted previously, pt had psychiatry consult 01/15/24 at [facility] and his sent the assessment to me, by Dr. Orlin Fisher. I have reviewed this. The diagnoses by Dr Fisher included neurocognitive disorder, depression unspecified. Recommendations appreciated. I was also able to review w Dr. Fisher by phone - see my 06/22/24 note for more discussion Atyp Antipsych Metabol Syndrome : Lipid profile ordered at this encounter. Medication Reconciliation: Outpatient: Has the patient been taking medications as documented in the EMLR? YES: The patient has been taking medications as documented in the EMLR. Essential Medication List for Review used to complete this medication reconciliation. AIMS Testing: AIMS (Mental Health Instrument) The patient was evaluated for symptoms of tardive dyskinesia using the AIMS. Total score for items 1-7: 0 /es/ GURVINDER LLAMAS MD STAFF PSYCHIATRIST Signed: 05/24/2025 18:25 GURVINDER LLAMAS
--- OUTSIDE RECORDS SUMMARY | 2025-05-29 17:24 | XMS_ITS ---
Author Name [facility] [place] [facility] [place] Address [address] [place] [address] Care Team Providers Care Chandelier Maker Name Role Phone IVAN VELAZQUEZ Primary Care [...] (PPO) BASIC SELF Aug 21, 2013 111 [id number] [phone] GISELL CELIO PATIENT ANTHEM [place] FEP PREFERRED PROVIDER ORGANIZAT ION (PPO) FEP BASIC IND Aug 21, 2013 111 [id number] [phone] CELIO GARDNER PATIENT ANTHEM FEP PREFERRED PROVIDER ORGANIZAT ION (PPO) FEP BASIC SELF Aug 21, 2013 111 [id number] [phone] GISELL CELIO PATIENT BCBS FEP PREFERRED PROVIDER ORGANIZAT ION (PPO) [id number] Aug 21, 2013 111 [id number] CELIO GARDNER PATIENT BCBS YOLANDA ATTN FEP CLAIMS PREFERRED PROVIDER ORGANIZAT ION (PPO) FEP BASIC IND Aug 21, 2013 111 [id number] [phone] CELIO GARDNER PATIENT [place]BS [place] FEP PREFERRED PROVIDER ORGANIZAT ION (PPO) FEP BASIC IND Aug 21, 2013 111 [id number] [phone] CELIO GARDNER PATIENT [place]BS [place] FEP PREFERRED PROVIDER ORGANIZAT ION (PPO) BASIC INDIV IDUAL Aug 21, 2013 111 [id number] [phone] CELIO JAMESON PATIENT [place] FEP PREFERRED PROVIDER ORGANIZAT ION (PPO) BASIC SELF Aug 21, 2013 111 [id number] [phone] CELIO GARDNER PATIENT [place] F[place] PREFERRED PROVIDER ORGANIZAT ION (PPO) BASIC SELF Aug 21, 2013 111 [id number] [phone] CELIO JAMESON PATIENT [place] FEP DENTAL DENTAL INSURANCE BASIC Aug 21, 2013 DENTAL [id number] CELIO GARDNER PATIENT [place] FEP PREFERRED PROVIDER ORGANIZAT ION (PPO) BASIC SELF Aug 21, 2013 111 [id number] CELIO GARDNER PATIENT [place] FEDERAL PREFERRED PROVIDER ORGANIZAT ION (PPO) BASIC SELF Aug 21, 2013 111 [id number] CELIO GARDNER PATIENT [place] FED[place] PREFERRED PROVIDER ORGANIZAT ION (PPO) STAND [facility] Y Aug 18, 2006 105 [id number] [phone] CELIO GARDNER PATIENT [employer] BCBS FEP MEDICARE SECONDARY (NO B EXC) FEHB BASIC MEDSE C Aug 21, 2013 111 [id number] [phone] CELIO GARDNER PATIENT [employer] BCBS FEP PREFERRED PROVIDER ORGANIZAT ION (PPO) FEP STAND [place] Sep 23, 2006 [id number] CELIO GARDNER PATIENT [employer] FEP ([id number]) PRESCRIPT ION FEP RX Aug 21, 2013 [id number] [phone] CELIO GARDNER PATIENT [place] FEP [id number] PRESCRIPT ION FEPRX Aug 21, 2013 [id number] [phone] CELIO GARDNER [place] FEP BCBS PRESCRIPT ION CAREM ARK FEPRX Aug 21, 2013 [id number] CELIO JAMESON CAREELIJAH FEP RX [id number] PRESCRIPT ION [id number] Aug 21, 2013 [id number] CELIO GARDNER [place]-F EP BCBS PRESCRIPT ION FEP Aug 21, 2013 [id number] [phone] CELIO GARDNER PATIENT MEDICARE ([facility]) MEDICARE () PART A Nov 16, 2021 PART A [id number] [phone] CELIO GARDNER PATIENT MEDICARE ([facility]) MEDICARE () PART B Nov 16, 2021 PART B [id number] [phone] CELIO GARDNER PATIENT MEDICARE ([facility]) MEDICARE (M) PART A Nov 16, 2021 PART A [id number] [phone] CELIO GARDNER PATIENT MEDICARE ([facility]) MEDICARE () PART B Nov 16, 2021 PART B [id number] [phone] CELIO GARDNER PATIENT MEDICARE ([facility]) MEDICARE () PART A Nov 16, 2021 PART A [id number] CEILO GARDNER PATIENT MEDICARE ([place]) MEDICARE () PART B Nov 16, 2021 PART B [id number] CELIO GARDNER PATIENT MEDICARE ([place]) MEDICARE () PART A Nov 16, 2021 PART A [id number] [phone] CELIO GARDNER PATIENT MEDICARE ([place]) MEDICARE () PART B Nov 16, 2021 PART B [id number] CELIO GARDNER PATIENT MEDICARE ([place]) MEDICARE () PART A Nov 16, 2021 PART A [id number] CELIO GARDNER PATIENT MEDICARE ([place]) MEDICARE (M) PART B Nov 16, 2021 PART B [id number] [phone] CELIO GARDNER PATIENT MEDICARE ([place]NR) MEDICARE (M) PART A Nov 16, 2021 PART A [id number] CELIO GARDNER PATIENT MEDICARE (WNR) MEDICARE (M) PART B Nov 16, 2021 PART B [id number] CELIO GARDNER PATIENT MEDICARE PART D (WNR) MEDICARE (M) PART D Aug 18, 2023 PART D [id number] [phone] CELIO GARDNER PATIENT Selected Encounter This section includes the information on record at [place] for the Encounter. Date/Time Encounter Type Encounter Description Reason Pro vider Source May 29, 2025 10:24 PM Outpatient Encounter ADMIN PAT ACTIVTIES (MASNONCT) IHE Encounter Template Text not used by [place] Plan of Treatment: Future Appointments (+ 6 months) and Future Tests (+/- 45 days) The Plan of Treatment section includes future care activities for the patient [facility] [place] [facility]. This section includes future appointments and future [...] 05, 2025 03:00 PM AMBULATORY - MEDICINE [facility] Jul 05, 2025 03:30 PM AMBULATORY - PSYCHIATRY [facility] Jul 22, 2025 09:45 AM AMBULATORY - NONE [facility] Jul 27, 2025 09:00 AM AMBULATORY - MEDICINE [facility] Aug 23, 2025 03:30 PM AMBULATORY - PSYCHIATRY [facility] Active, Pending, and Scheduled Orders This section includes a listing of several types of active, pending, and scheduled orders, including clinic medications orders, diagnostic test orders, procedure orders and consult orders; where the start date of the order is 45 days before the date of the Encounter or 45 days after the date of theEncounter. The data comes from all [place] treatment facilities. Test Date/Time Test Type Test Details Facility Name Jul 06, 2025 03:42 PM Consult Order [facility]-CARDIOLOGY Cons General Production Laborer'peg [place] [place] [place] Social History: Smoking Status (Most current) and Tobacco Use (All prior to encounter date) This section includes the most current, and the historical, smoking and tobacco- related health factors from the [place] facility where the Encounter took place. Current Smoking Status This section includes the most current smoking, or tobacco-related health factor, from the [place] facility where the Encounter took place. Date/Time Current Smoking Status Comment [facility] Sep 17, 2021 11:00 AM VA-TOBACCO FORMER USER [place] [facility] [place] [facility] Tobacco Use History This section includes a history of the smoking, or tobacco-related health factors, that were collected on or before the date of the Encounter. The data comes from the [place] facility where the Encounter took place. Date/Time Smoking Status/Tobac co Use Comment Facility Sep 17, 2021 11:00 AM VA-TOBACCO QUIT 15 YRS OR MORE [place] [facility] [place] [facility] Mar 01, 2020 01:30 PM VA-TOBACCO FORMER USER [place] [facility] [place] [facility] Mar 01, 2020 01:30 PM VA-TOBACCO QUIT 15 YRS OR MORE [place] [facility] [place] [facility] Jan 20, 2019 09:37 AM VA-TOBACCO NEVER USED [place] [facility] [place] [facility] Dec 11, 2017 05:17 PM QUIT TOBACCO USE > 7 YEARS AGO [place] [facility] [place] [facility] Jan 20, 2017 03:12 PM QUIT TOBACCO USE > 7 YEARS AGO [place] [facility] [place] [facility] January 09, 2016 08:48 AM QUIT TOBACCO USE > 7 YEARS AGO . [place] [facility] [place] [facility] Jun 09, 2006 05:45 PM LIFETIME NON-TOBACCO USER [place] [facility] [place] [facility] Aug 22, 2003 03:27 PM HISTORY OF SMOKING [place] [facility] [place] [facility] Aug 22, 2003 03:27 PM QUIT TOBACCO USE IN PAST YEAR [place] [facility] [place] [facility] Jun 24, 2003 12:01 PM CURRENT SMOKER about 1 week/so [facility] Advance Directives: All historical and current [...] Apr 08, 2024 ADVANCE DIRECTIVE LATONYA EWING [facility] Sep 19, 2021 GOALS & PREFERENCES TO INFORM LIFE-SUSTAINING TREATMENT PLAN NESTOR VIVASH Ade [facility] Sep 19, 2020 ADVANCE DIRECTIVE KAYDENALANAJAYME JERRY [facility] Encounter Notes: All associated encounter notes This section contains the clinical notes associated to the Encounter. Date/Time Encounter Note(s) Provider Source May 29, 2025 10:24 PM PHARMACY NOTE: LOCAL TITLE: PHARMACY CUSTOMER CARE MEDICATION RENEWAL STANDARD TITLE: PHARMACY NOTE DATE OF NOTE: MAY 29, 2025@22:24 ENTRY DATE: MAY 29, 2025@22:24:09 AUTHOR: DARION HAQ EXP COSIGNER: URGENCY: STATUS: COMPLETED Date: May Division: [place] Pt referred by Pharmacy Call Center for medication renewal: Non-controlled/maintenance medication Medications requested: [id number]$ DICLOFENAC NA 1% TOP GEL [id number]$ MELATONIN 5MG CAP/TAB Defer to primary care provider To be mailed . Please review and renew if appropriate. *This note was generated by [facility] Customer Care. If you have any questions or need assistance, do not contact this author. Please refer all questions to your local, on-site pharmacy departments. /erasto/ DARION HAQ baggage agent supervisor Signed: 05/29/2025 22:24 Receipt Acknowledged By: 05/31/2025 08:13 /erasto/ IVAN VELAZQUEZ RN,MSN,SENIOR PRODUCTION MANAGER-C [facility] NURSE PRACTITIONER DARION HAQ [facility]
--- OUTSIDE RECORDS SUMMARY | 2025-06-27 03:30 | XMS_ITS ---
Author Name [facility] [place] Address [address] [place] [address] Care Team Providers Care Hanger Name Role Phone IVAN VELAZQUEZ Primary Care [...] (PPO) BASIC SELF Aug 21, 2013 [id number] [phone] GISELL SONG PATIENT ANTHEM [place] F[place] PREFERRED PROVIDER ORGANIZAT ION (PPO) FEP BASIC IND Aug 21, 2013 111 [id number] [phone] SONG GARDNER PATIENT ANTHEM FEP PREFERRED PROVIDER ORGANIZAT ION (PPO) FEP BASIC SELF Aug 21, 2013 111 [id number] [phone] GISELL SONG PATIENT BCBS FEP PREFERRED PROVIDER ORGANIZAT ION (PPO) [id number] Aug 21, 2013 111 [id number] SONG GARDNER PATIENT BCBS YOLANDA ATTN FEP CLAIMS PREFERRED PROVIDER ORGANIZAT ION (PPO) FEP BASIC IND Aug 21, 2013 111 [id number] [phone] SONG GARDNER PATIENT [place] FEP PREFERRED PROVIDER ORGANIZAT ION (PPO) FEP BASIC IND Aug 21, 2013 111 [id number] [phone] SONG GARDNER PATIENT [place] F[place] PREFERRED PROVIDER ORGANIZAT ION (PPO) BASIC INDIV IDUAL Aug 21, 2013 111 [id number] [phone] SONG MARAVILLA PATIENT BCBS OF [place] FEP PREFERRED PROVIDER ORGANIZAT ION (PPO) BASIC SELF Aug 21, 2013 111 [id number] SONG GARDNER PATIENT [place] F[place] PREFERRED PROVIDER ORGANIZAT ION (PPO) BASIC SELF Aug 21, 2013 111 [id number] SONG MARAVILLA PATIENT [place] FEP DENTAL DENTAL INSURANCE BASIC Aug 21, 2013 DENTAL [id number] SONG GARDNER PATIENT [place] OF [place] FEP PREFERRED PROVIDER ORGANIZAT ION (PPO) BASIC SELF Aug 21, 2013 111 [id number] SONG GARDNER PATIENT [place] FEDERAL PREFERRED PROVIDER ORGANIZAT ION (PPO) BASIC SELF Aug 21, 2013 111 [id number] SONG GARDNER PATIENT [place] FED[place] PREFERRED PROVIDER ORGANIZAT ION (PPO) STAND [facility] FAMIL Y Aug 18, 2006 [id number] SONG GARDNER PATIENT C[employer] BCBS FEP MEDICARE SECONDARY (NO B EXC) FEHB BASIC MEDSE C Aug 21, 2013 111 [id number] [phone] SONG GARDNER PATIENT [employer] BCBS FEP PREFERRED PROVIDER ORGANIZAT ION (PPO) FEP STAND [place] Sep 23, 2006 [id number] SONG GARDNER PATIENT [place] FEP ([id number]) PRESCRIPT ION FEP RX Aug 21, 2013 [id number] [phone] GARDNER, SONG PATIENT [place] FEP [id number] PRESCRIPT ION FEPRX Aug 21, 2013 [id number] [phone] SONG GARDNER CAREELIJAH FEP BCBS PRESCRIPT ION CAREM ARK FEPRX Aug 21, 2013 [id number] SONG MARAVILLA CAREELIJAH FEP RX [id number] PRESCRIPT ION [id number] Aug 21, 2013 [id number] SONG GARDNER CAREMARK-F EP BCBS PRESCRIPT ION FEP Aug 21, 2013 [id number] SONG GARDNER MEDICARE ([facility]) MEDICARE () PART A Nov 16, 2021 PART A [id number] [phone] SONG GARDNER PATIENT MEDICARE ([facility]) MEDICARE () PART B Nov 16, 2021 PART B [id number] [phone] SONG GARDNER PATIENT MEDICARE (WN) MEDICARE ) PART A Nov 16, 2021 PART A [id number] [phone] SONG GARDNER PATIENT MEDICARE ([facility]) MEDICARE () PART B Nov 16, 2021 PART B [id number] [phone] SONG GARDNER PATIENT MEDICARE (WN) MEDICARE () PART A Nov 16, 2021 PART A [id number] SONG GARDNER PATIENT MEDICARE (WN) MEDICARE () PART B Nov 16, 2021 PART B [id number] [phone] SONG GARDNER PATIENT MEDICARE (WN) MEDICARE () PART A Nov 16, 2021 PART A [id number] SONG GARDNER PATIENT MEDICARE (WN) MEDICARE () PART B Nov 16, 2021 PART B [id number] SONG GARDNER PATIENT MEDICARE (WN) MEDICARE () PART A Nov 16, 2021 PART A [id number] SONG GARDNER PATIENT MEDICARE (WNR) MEDICARE (M) PART B Nov 16, 2021 PART B [id number] [phone] SONG GARDNER PATIENT MEDICARE (WNR) MEDICARE (M) PART A Nov 16, 2021 PART A [id number] SONG GARDNER PATIENT MEDICARE (WNR) MEDICARE (M) PART B Nov 16, 2021 PART B [id number] [phone] SONG GARDNER PATIENT MEDICARE PART D (WNR) MEDICARE (M) PART D Aug 18, 2023 PART D [id number] [phone] SONG GARDNER PATIENT Selected Encounter This section includes the information on record at [place] for the Encounter. 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 Date/Time Primary/Secondary Diagnosis Diagnosis Name Provider Source Jun 27, 2025 09:50 AM PRIMARY Other termination clerk (current) drug therapy HIEU PECK [facility] Plan of Treatment: Future Appointments (+ 6 months) and Future Tests (+/- 45 days) The Plan of Treatment section includes future care activities for the patient from all [place] treatmentfacilities. This section includes future appointments and [...] 05, 2025 03:00 PM AMBULATORY - MEDICINE [facility] Jul 05, 2025 03:30 PM AMBULATORY - PSYCHIATRY [facility] Jul 22, 2025 09:45 AM AMBULATORY - NONE [facility] Jul 27, 2025 09:00 AM AMBULATORY - MEDICINE [facility] Aug 23, 2025 03:30 PM AMBULATORY - PSYCHIATRY [facility] Active, Pending, and Scheduled Orders This section includes a listing of several types of active, pending, and scheduled orders, including clinic medications orders, diagnostic test orders, procedure orders and consult orders; where the start date of the order is 45 days before the date of the Encounter or 45 days after the date of theEncounter. The data comes from all [place] treatment facilities. Test Date/Time Test Type Test Details Facility Name Jul 06, 2025 03:42 PM Consult Order [facility]-CARDIOLOGY Cons Mild Disabilities Teacher's Choice [facility] [place] Lab Results: +/- 30 days of the encounter This section includes the Chemistry and Hematology Lab Results on record with [place] for the patient. Radiology Reports and Pathology Reports are provided separately, in subsequent sections. Lab Results This section contains the Chemistry/Hematology Results that were resulted 30 days before or 30 daysafter the date of the Encounter. Date/Time Source Result Type Result - Unit Interpretation Reference Range Specimen Type Comment Jul 22, 2025 10:16 AM [facility] MICROALBUMIN CREATININE RATIO PANEL URINE Spe cimen Type: URINE No comment entered. Ordering Provider: HUMBERTO VELAZQUEZ Report Released Date/Time: Apr 12, 2025 03:48 PM Reporting Lab: [facility] [address] [facility] [address] Performing Lab: [facility] [address] [facility] [address] MICROALBUMIN/CREATININE RATIO 9.4 mg/g 0 -29.9 MICROALBUMIN,QUANTITATIVE 1.9 mg/dL RR U NAVAIL CREATININE URINE 202.90 mg/dL H 63-166 Jul 05, 2025 03:09 PM [facility] HEAVY METALS PANEL,BLOOD BLOOD Specimen Type: BLOOD Comment: REFERENCE RANGE: <23 mcg/L Whole Blood Arsenic level >100 mcg/L is indicative of acute/chronic exposure. Urine is usually the best specimen for the analysis of arsenic in body fluids. Blood levels tend to be low even when urine concentrations are high This test was developed and its analytical performance characteristics have been determined by [facility] [place]. It has not been cleared or approved by the U.S. Food and Drug Administration. This assay has been validated pursuant to the CLIA regulations and is used for clinical purposes. REFERENCE RANGE: <3.5 mcg/dL A blood lead reference value of <5 mcg/dL should apply to only [facility] residents per [facility]. Analysis was performed by Inductively Coupled Plasma Mass Spectrometry (ICPMS) This test was developed and its analytical performance characteristics have been determined by [facility] [place]. It has not been cleared or approved by the U.S. Food and Drug Administration. This assay has been validated pursuant to the CLIA regulations and is used for clinical purposes. REFERENCE RANGE: <=10 mcg/L This test was developed and its analytical performance characteristics have been determined by [facility] [place]. It has not been cleared or approved by the U.S. Food and Drug Administration. This assay has been validated pursuant to the CLIA regulations and is used for clinical purposes. Reference Range: Adults, Non-Smokers: 1.7 mcg/L or less Adults, Smokers: 5.0 mcg/L or less OSHA Reference Range: 5.0 mcg/L or less Toxic Concentration: Early signs of toxicity have been observed at 30 mcg/L. Cadmium is a naturally occurring element that is mined and used in industrial production because of its durability. Exposure tends to occur in industrial sectors including manufacturing, construction, and transportation. Excessive cadmium exposure can damage lungs, kidneys, and the digestive tract. For more information, visit https://www.cdc.gov/niosh/topics/cadmium/ This test was developed and its analytical performance characteristics have been determined by [facility] [place], [place]. It has not been cleared or approved by the U.S. Food and Drug Administration. This assay has been validated pursuant to the CLIA regulations and is used for clinical purposes. Test Performed by [facility], [facility] [place], [address] [place] [address] Morgan Irving M.D., Ph.D., Director of Laboratories , CLIA [id number] TEST PERFORMED AT: , Ordering Provider: IVAN VELAZQUEZ Report Released Date/Time: Apr 12, 2025 03:48 PM Reporting Lab: [facility] [place] [facility] [address] [facility] [address] Performing Lab: [facility] [place] [facility] [address] [address] CADMIUM <0.5 ug/L ARSENIC, BLOOD <3 ug/L SEE BELOW LEAD,BLOOD (Q) <1.0 ug/dL SEE BELOW MERCURY, BLOOD <4 ug/L SEE BELOW Jul 05, 2025 03:09 PM [facility] FOLATE SERUM Specimen Type: SERUM No comment entered. Ordering Provider: IVAN VELAZQUEZ Report Released Date/Time: Apr 12, 2025 03:48 PM Reporting Lab: [facility] [address] [facility] [address] Performing Lab: [facility] [address] [address] FOLATE 11.9 ng/mL 7.0-31.4 Jul 05, 2025 03:09 PM [facility] LIPID PANEL, NON FASTING SERUM Specimen Type: SERUM No comment entered. Ordering Provider: IVAN VELAZQUEZ Report Released Date/Time: Apr 12, 2025 03:48 PM Reporting Lab: [facility] [address] [facility] [address] Performing Lab: [facility] [address] [address] CHOLESTEROL 167 mg/dL 0-199 TRIGLYCERIDE 187 mg/dL H 0-149 LDL calculated 89 mg/dL 0-129 CHOL/HDL 4.1 HDL CHOLESTEROL 41 mg/dL >40 Jul 05, 2025 03:09 PM [facility] LIVER FUNCTION SERUM Specimen Type: SERUM No comment entered. Ordering Provider: IVAN VELAZQUEZ Report Released Date/Time: Apr 12, 2025 03:48 PM Reporting Lab: [facility] [address] [facility] [address] Performing Lab: [facility] [place] [place] [address] [place] [address] PROTEIN,TOTAL 7.1 g/dL 6.4-8.3 ALBUMIN 4.2 g/dL 3.2-4.6 ALKALINE PHOSPHATASE 69 U/L 40-150 AST 28 U/L 5-34 ALT 15 U/L 0-55 BILIRUBIN, TOTAL 0.5 mg/dL 0.2-1.2 Jul 05, 2025 03:09 PM [facility] BASIC METABOLIC PANEL (non-fasting) SERUM Spe cimen Type: SERUM No comment entered. Ordering Provider: IVAN VELAZQUEZ Report Released Date/Time: Apr 12, 2025 03:48 PM Reporting Lab: [address] [address] Performing Lab: [address] [address] UREA NITROGEN 21 mg/dL 8-26 GLUCOSE 87 mg/dL 65-100 SODIUM 142 mmol/L 136-145 POTASSIUM 4.5 mmol/L 3.5-5.1 CHLORIDE 107 mmol/L 98-107 CO2 22 meq/L L 23-31 CALCIUM 8.6 mg/dL L 8.8-10 CREATININE, Serum 1.27 mg/dL H 0.72-1.25 eGFR(CKD-EPI 2020) 62 mL/min >60 ANION GAP 13 meq/L 6-16 Jul 05, 2025 03:09 PM [facility] HEMOGLOBIN A1C PANEL BLOOD Specimen Type: BLO OD Comment: Values obtained from A1C measurements can vary. For atypical A1C assays, a reported value of 7.0 could actually be between 6.72 and 7.28 if measured by a reference method. A reported value of 9.0 could actually be between 8.73 and 9.27. Ref: http://www.ngsp.org/CAPdata.asp Ordering Provider: IVAN VELAZQUEZ Report Released Date/Time: Apr 12, 2025 03:48 PM Reporting Lab: [address] [address] Performing Lab: [address] [address] HEMOGLOBIN A1C 5.8 H 4.0-5.6 Jul 05, 2025 03:09 PM [facility] [place] LIPID PANEL FASTING SERUM Specimen Ty pe: SERUM No comment entered. Ordering Provider: KATIE LLAMAS Report Released Date/Time: May 24, 2025 06:24 PM Reporting Lab: [facility] [address] [facility] [address] Performing Lab: [facility] [address] [facility] [address] CHOLESTEROL 167 mg/dL 0-199 TRIGLYCERIDE 187 mg/dL H 0-149 LDL calculated 89 mg/dL 0-129 CHOL/HDL 4.1 HDL CHOLESTEROL 41 mg/dL >40 Jul 05, 2025 03:09 PM [facility] CBC AND DIFF (AUTO) BLOOD Specimen Type: BLOO D No comment entered. Ordering Provider: IVAN VELAZQUEZ Report Released Date/Time: Apr 12, 2025 03:48 PM Reporting Lab: [facility] [address] [facility] [address] Performing Lab: [facility] [address] [address] WBC 7.70 10*3/uL 4.50-11.00 RBC 5.64 10*6/uL 4.23-5.66 HGB 16.1 g/dL 12.8-17 HCT 47.8 39.2-50.4 MCV 84.8 fL 82-99 MCHC 33.7 g/dL 30.8-35.1 PLT 171 10*3/uL 140-360 MPV 10.1 fL 9.2-12.4 RDW-CV 13.6 12.0-16.0 MONO, ABS 0.61 10*3/uL 0.30-1.10 MCH 28.5 pg 26.2-32.6 NEUT % 64.2 43.7-75.8 LYMPH % 24.2 14.0-42.3 MONO % 7.9 5.1-13.7 EOS % 2.2 0.4-6.8 BASO % 0.6 0.1-2.0 NEUT, ABS 4.94 10*3/uL 2.20-7.60 LYMPH, ABS 1.86 10*3/uL 1.00-3.20 EOS, ABS 0.17 10*3/uL 0.03-0.44 BASO, ABS 0.05 10*3/uL 0.01-0.13 IMMATURE GRAN % 0.9 H 0.0-0.7 IMMATURE GRAN, ABS 0.07 10*3/uL H 0.00-0.0 6 NRBC % 0.0 0.0-0.0 NRBC, ABS 0.00 10*3/uL 0.00-0.00 Jul 05, 2025 03:09 PM [facility] VITAMIN B12 SERUM Specimen Type: SERUM No comment entered. Ordering Provider: IVAN VELAZQUEZ Report Released Date/Time: Jun 27, 2025 01:59 PM Reporting Lab: [address] [address] Performing Lab: [address] [address] VITAMIN B12 467 pg/mL 213-816 Social History: Smoking Status (Most current) and [...] took place. Date/Time Current Smoking Status Comment [facility] Sep 17, 2021 11:00 AM VA-TOBACCO FORMER USER [facility] Tobacco Use History This section includes a history of the smoking, or tobacco-related health factors, that were collected on or before the date of the Encounter. The data comes from the [place] facility where the Encounter took place. Date/Time Smoking Status/Tobac co Use Comment Facility Sep 17, 2021 11:00 AM VA-TOBACCO QUIT [facility] Mar 01, 2020 01:30 PM VA-TOBACCO [facility]ER [facility] Mar 01, 2020 01:30 PM VA-TOBACCO QUIT 15 YRS OR MORE [facility] Jan 20, 2019 09:37 AM VA-TOBACCO NEVER USED [facility] Dec 11, 2017 05:17 PM QUIT TOBACCO USE > 7 YEARS AGO [facility] Jan 20, 2017 03:12 PM QUIT TOBACCO USE > 7 YEARS AGO [facility] January 09, 2016 08:48 AM QUIT TOBACCO USE > 7 YEARS AGO . [facility] Jun 09, 2006 05:45 PM LIFETIME NON-TOBACCO USER [facility] Aug 22, 2003 03:27 PM HISTORY OF SMOKING [facility] Aug 22, 2003 03:27 PM QUIT TOBACCO USE IN PAST YEAR [facility] Jun 24, 2003 12:01 PM CURRENT SMOKER about 1 week/so [facility] Advance Directives: All historical and current [...] Apr 08, 2024 ADVANCE DIRECTIVE LATONYA EWING [facility] Sep 19, 2021 GOALS & PREFERENCES TO INFORM LIFE-SUSTAINING TREATMENT PLAN MARY VIVAS [facility] Sep 19, 2020 ADVANCE DIRECTIVE ALANA MONIQUE [facility] Encounter Notes: All associated encounter notes This section contains the clinical notes associated to the Encounter. Date/Time Encounter Note(s) Provider Source Jun 27, 2025 08:30 AM [facility] MEDICATION MGT NOTE: LOCAL TITLE: [facility] PHARMACY MEDICATION REVIEW STANDARD TITLE: [facility] MEDICATION MGT NOTE DATE OF NOTE: JUN 27, 2025@08:30 ENTRY DATE: JUN 27, 2025@08:30:22 AUTHOR: HIEU PECK COSIGNER: URGENCY: STATUS: COMPLETED [...] OSTEOARTHRITIS 5) DOCUSATE NA 100MG CAP TAKE TWO CAPSULES BY MOUTH AT BEDTIME ACTIVE NEEDED TO SOFTEN STOOL Indication: FOR CONSTIPATION * DOSE DECREASE from 300mg 6) ESCITALOPRAM OXALATE 10MG TAB TAKE ONE TABLET BY MOUTH ONCE ACTIVE DAILY FOR MOOD/DEPRESSION ### Indication: FOR MAJOR DEPRESSIVE DISORDER * DOSE INCREASE from 7.5mg 7) MELATONIN 5MG CAP/TAB TAKE TWO CAPSULE/TABLET BY MOUTH AT ACTIVE (S) BEDTIME NEEDED Indication: FOR INSOMNIA 8) MEMANTINE [...] 25MG TAB TAKE ONE-HALF TABLET BY MOUTH HOLD FOUR TIMES DAILY NEEDED ### Indication: MOOD * CHANGE IN DOSING from 12.5mg in the AM and 25mg at HS * placed on hold until requested 13) RIVASTIGMINE TARTRATE 3MG CAP TAKE ONE [...] ### Indication: FOR INSOMNIA ASSOCIATED WITH DEPRESSION THE ABOVE MEDICATIONS WERE REVIEWED FOR: ADR, potential incompatibilities, compliance, duplication of therapy, and indications on problem list Other Rx/OTC/Herbals: none identified High Alert Meds: clonazepam, quetiapine, trazodone Look Alike/Sound Alike Meds: clonazepam, escitalopram, metoprolol succinate, quetiapine, trazodone Duplication of Therapy: none Excessive Duration: none Vitals: ======= Ht: 72 in [182.9 cm] (08/20/2021 15:11) Wt: 194 lb [88.00 kg] (04/12/2025 15:33) BMI: 26.4 BP: 105/70 (04/12/2025 15:33) HR: 80 (04/12/2025 15:33) Pain: 1 (04/12/2025 15:33) Labs: ===== SERUM Na K BUN SCr [...] No falls/hospitalizations/infection s noted - Per the 04/07/25 HB RN note, remains anxious and continues to ask when visit will be over, but is cooperative. - Per the 04/25/25 Administrative note, trialed taking quetiapine once a day and was considerably more anxious. Will resume taking prescribed dose of 12.5mg in the AM and 25mg at HS. - Per the 04/28/[address] note, weight remains stable with good PO intake. No issues with N/V/D and has a BM daily. - Per the 05/24/25 Psych note, escitalopram dose increased from 7.5mg to 10mg daily for anxiety and depression. Quetiapine dosing was changed from 12.5mg in the AM and 25mg at HS to 12.5mg 4 times daily PRN for mood. Provider trialing in an effort to improve 's QOL in the setting of significant anxiety sx as well as augment depressive sx. INTERVENTIONS/SUGGESTIONS: 1. Patient's medications were reviewed for significant drug interactions. * aspirin/escitalopram/trazodone: concurrent use may increase bleeding risk; monitor for signs/sx of bleeding, last Hgb/Hct WNL * clonazepam/quetiapine/trazodone/ carbidopa/levodopa: concurrent use may increase risk of PROJECTS MANAGER depression; monitor vitals and for excessive sedation * quetiapine/escitalopram/trazodon e: concurrent use may increase risk of QTc prolongation; monitor frequency of use of PRN agents, last EKG from February 2021 - QTc [...] risk of serotonin syndrome; monitor for signs/sx (anxiety, AMS, myoclonus, tremor, dilated pupils, tachycardia, raised BPs, sweating, N/V/D) * escitalopram/metoprolol: concurrent use may result in increased metoprolol exposure; monitor vitals and for signs/sx of orthostasis 2. 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 - closely followed by Psychiatry (last seen 05/24/25); currently on rivastigmine and max-dose memantine for dementia, on trazodone and melatonin for sleep (insomnia related to anxiety sx) - would encourage scheduled use of melatonin to support efficacy; previously restarted on escitalopram with discontinuation of duloxetine d/t concern for ?increased confusion with duloxetine and worsening in sx since stopping escitalopram (recent dose increase of escitalopram from 7.5mg to 10mg daily), quetiapine (recent change in dosing from 12.5mg in the AM and 25mg at HS --> 12.5mg 4 times daily PRN for mood - monitor frequency of use and for AEs, agent not typically dosed 4 times daily d/t PK profile but appreciate goal is improved QOL and agent has been beneficial for significant anxiety sx), and PRN clonazepam (monitor for AEs to ensure toleration given increased risk in older adults - dizziness, cognitive impairment, delirium, fall/fracture, complex sleep behaviors, anterograde amnesia); previously started on carbidopa/levodopa for parkinsonism sx of unclear origin (antipsychotic induced vs. related to dementia); underwent Neuropsych testing in Jul 2023; last MOCA (Jul 2024); AIMS of 0 (05/24/25); last TSH/vit B12/folate WNL with repeat folate level pending (would consider adding a vit B12 level to pending lab orders) --> dependent in 3/6 ADLs (bathing, dressing, continence), dependent in all iADLs * VALENTINO - unable to tolerate CPAP d/t anxiety * OA - of knee; previously on celecoxib, currently uses topical NSAID; no recent pain complaints per chart review. * dry eyes - not currently on pharmacotherapy (declined [facility] as sx have not been bothersome), monitor for symptoms and consider carboxymethylcellulose eye drops versus consulting specialist * constipation - on PRN polyethylene glycol and PRN docusate * malignant melanoma of lower limb - s/p complete excision in 2019, Derm visit in Apr 2020; [facility] PCP recently encouraged specialty f/u * hx [...] WNL; antipsychotic use may be contributing to HLD; due for repeat lipid panel and LFTs (lab order pending) 6. Adherence Concerns: - medications managed by amrita's * carbidopa/levodopa - last filled 05/20/25, 01/07/25 (88-day supply) 7. Health Maintenance: > Immunizations: * Amrita is due for the following immunizations per chart review and CDC recommendations: - COVID-19 (pt refusal in Mar 2025) - influenza - RSV (pt refusal in Mar 2025) > Bladder/Bowel: * Inquire about incontinence and severity biannually. > Bone Health: * last vit D elevated, not on supplementation * last Ca WNL, not on supplementation > Aspirin: * on aspirin for primary ASCVD prevention * hx of microscopic hematuria 8. Patient with zero refills on: carbidopa/levodopa 9. Continue to review quarterly. Recommendations: [...] encourage communication with Neuro specialist, if appropriate. Of note, amrita is not up-to-date with refills of this agent per med refill history which supports less frequent dosing than Rx instructions. * carbidopa/levodopa - last filled 05/20/25, 01/07/25 (88-day supply) - Would consider adding a vit B12 level to pending lab orders. - Please assess 's willingness to receive the updated influenza vaccine during next scheduled visit. The details of this review were shared with the IDT in order to assist in creating a care plan designed to provide services focused on the health and well being of the patient. Time Spent: 60 min /erasto/ HIEU PECK [facility] Clinical Pharmacist Practitioner Signed: 06/27/2025 09:54 Receipt Acknowledged By: 06/28/2025 09:41 /erasto/ Ewa COLLINSN [facility] document management technician 06/27/2025 14:00 /erasto/ IVAN VELAZQUEZ RN,MSN,RESIN COATER-C [facility] NURSE PRACTITIONER HIEU PECK [facility]
--- OUTSIDE RECORDS SUMMARY | 2025-06-30 07:00 | XMS_ITS | Encounter Summary ---
Author Name [facility] [facility] [place] Address [address] [place] [address] Care Team Providers Care Workers Compensation Attorney Name Role Phone LIZ VELAZQUEZ Primary Care Provider Unav ailable GILDARDO, [...] (PPO) BASIC SELF Aug 21, 2013 111 [id number] [phone] GISELL CELIO PATIENT [place]THE[place] FEP PREFERRED PROVIDER ORGANIZAT ION (PPO) FEP BASIC IND Aug 21, 2013 111 [id number] [phone] CELIO GARDNER PATIENT ANTHEM FEP PREFERRED PROVIDER ORGANIZAT ION (PPO) FEP BASIC SELF Aug 21, 2013 111 [id number] [phone] EricJuan DanielCELIO GAN PATIENT BCBS FEP PREFERRED PROVIDER ORGANIZAT ION (PPO) [id number] Aug 21, 2013 111 [id number] [phone] CELIO GARDNER PATIENT BCBS YOLANDA ATTN FEP CLAIMS PREFERRED PROVIDER ORGANIZAT ION (PPO) FEP BASIC IND Aug 21, 2013 111 [id number] [phone] CELIO GARDNER PATIENT [place] FEP PREFERRED PROVIDER ORGANIZAT ION (PPO) FEP BASIC IND Aug 21, 2013 111 [id number] [phone] CELIO GARDNER PATIENT [place] F[place] PREFERRED PROVIDER ORGANIZAT ION (PPO) BASIC INDIV IDUAL Aug 21, 2013 111 [id number] [phone] CELIO JAMESON PATIENT [place] OF [place] FEP PREFERRED PROVIDER ORGANIZAT ION (PPO) BASIC SELF Aug 21, 2013 111 [id number] CELIO GARDNER PATIENT [place] F[place] PREFERRED PROVIDER ORGANIZAT ION (PPO) BASIC SELF Aug 21, 2013 111 [id number] [phone] CELIO JAMESON PATIENT [place] FEP DENTAL DENTAL INSURANCE BASIC Aug 21, 2013 DENTAL [id number] CELIO GARDNER PATIENT [place] FEP PREFERRED PROVIDER ORGANIZAT ION (PPO) BASIC SELF Aug 21, 2013 111 [id number] CELIO GARDNER PATIENT [place] FEDERAL PREFERRED PROVIDER ORGANIZAT ION (PPO) BASIC SELF Aug 21, 2013 111 [id number] [phone] CELIO [place]ARDNER PATIENT [place] PREFERRED PROVIDER ORGANIZAT ION (PPO) STAND MAGDAL[place] FAMIL Y Aug 18, 2006 105 [id number] [phone] CELIO GARDNER PATIENT C[employer] BCBS FEP MEDICARE SECONDARY (NO B EXC) FEHB BASIC MEDSE C Aug 21, 2013 111 [id number] [phone] CELIO GARDNER PATIENT [employer] BCBS FEP PREFERRED PROVIDER ORGANIZAT ION (PPO) FEP STAND MAG[place] Sep 23, 2006 [id number] CELIO GARDNER PATIENT CAR[employer]ARK FEP ([id number]) PRESCRIPT ION FEP RX Aug 21, 2013 [id number] [phone] CELIO GARDNER PATIENT [employer] FEP [id number] PRESCRIPT ION FEPRX Aug 21, 2013 [id number] [phone] CELIO GARDNER PATIENT [place] FEP BCBS PRESCRIPT ION CAREM ARK FEPRX Aug 21, 2013 [id number] CELIO JAMES[place] RX [id number] PRESCRIPT ION [id number] Aug 21, 2013 [id number] CELIO GARDNER CAREMARK-F EP BCBS PRESCRIPT ION FEP Aug 21, 2013 [id number] CELIO GARDNER PATIENT MEDICARE (WN) MEDICARE () PART A Nov 16, 2021 PART A [id number] [phone] CELIO GARDNER PATIENT MEDICARE ([facility]) MEDICARE (M) PART B Nov 16, 2021 PART B [id number] [phone] CELIO GARDNER PATIENT MEDICARE ([facility]) MEDICARE (M) PART A Nov 16, 2021 PART A [id number] CELIO GARDNER PATIENT MEDICARE ([facility]) MEDICARE () PART B Nov 16, 2021 PART B [id number] [phone] CELIO GARDNER PATIENT MEDICARE ([facility]) MEDICARE () PART A Nov 16, 2021 PART A [id number] ECLIO GARDNER PATIENT MEDICARE (WN) MEDICARE () PART B Nov 16, 2021 PART B [id number] CELIO GARDNER PATIENT MEDICARE (WN) MEDICARE () PART A Nov 16, 2021 PART A [id number] CELIO GARDNER PATIENT MEDICARE (WN) MEDICARE () PART B Nov 16, 2021 PART B [id number] [phone] CELIO GARDNER PATIENT MEDICARE (WN) MEDICARE () PART A Nov 16, 2021 PART A [id number] CELIO GARDNER PATIENT MEDICARE (WNR) MEDICARE (M) PART B Nov 16, 2021 PART B [id number] [phone] CELIO GARDNER PATIENT MEDICARE (WNR) MEDICARE (M) PART A Nov 16, 2021 PART A [id number] CELIO GARDNER PATIENT MEDICARE (WNR) MEDICARE (M) PART B Nov 16, 2021 PART B [id number] CELIO GARDNER PATIENT MEDICARE PART D (WNR) MEDICARE (M) PART D Aug 18, 2023 PART D [id number] [phone] CELIO GARDNER PATIENT Selected Encounter This section includes the information on record at [place] for the Encounter. Date/Time Encounter Type Encounter Description Reason Provider Source Jun 30, 2025 12:00 PM SELF CARE MNGMENT TRAINING [facility] Nursing (RN / LP) ICD-10-CM F33.3 Major depressv disorder, recurrent, severe w psych symptoms EWA HASKINS [facility] Encounter Template Text not used by [place] Assessments - Encounter Diagnoses This section includes the primary and secondary diagnoses documented for the Encounter. Date/Time Primary/Secondary Diagnosis Diagnosis Name Provider Source Jun 30, 2025 06:06 PM PRIMARY Major depressv disorder, recurrent, severe w psych symptoms EWA HASKINS [facility] Jun 30, 2025 06:06 PM SECONDARY Encounter for immunization [facility]INS [facility] Jun 30, 2025 06:06 PM SECONDARY Neurocognitive disorder with Lewy bodies EWA HASKINS [facility] Plan of Treatment: Future Appointments (+ 6 months) and Future Tests (+/- 45 days) The Plan of Treatment section includes future care activities for the patient from all [place] treatmentfacilities. This section includes future appointments and future orders which are active, pending or scheduled. Future Appointments This section includes appointments that were scheduled to occur 6 months from the date of the Encounter, up to a maximum of 20 appointments. The data comes from all [place] treatment facilities. Appointment Date/Time Appointment Type Appointme nt Facility Name Jul 05, 2025 03:00 PM AMBULATORY - MEDICINE [facility] Jul 05, 2025 03:30 PM AMBULATORY - PSYCHIATRY [facility] Jul 22, 2025 09:45 AM AMBULATORY - NONE [facility] Jul 27, 2025 09:00 AM AMBULATORY - MEDICINE HI C [facility] Aug 23, 2025 03:30 PM AMBULATORY - PSYCHIATRY [facility] December 27, 2025 02:00 PM AMBULATORY - MEDICINE [facility] Active, Pending, and Scheduled Orders This section includes a listing of several types of active, pending, and scheduled orders, including clinic medications orders, diagnostic test orders, procedure orders and consult orders; where the start date of the order is 45 days before the date of the Encounter or 45 days after the date of theEncounter. The data comes from all [place] treatment facilities. Test Date/Time Test Type Test Details Facility Name Jul 06, 2025 03:42 PM Consult Order [facility]-CARD[facility] Cons Prefinish Operator's Choice [facility] Lab Results: +/- 30 days of the encounter This section includes the Chemistry and Hematology Lab Results on record with [place] for the patient. Radiology Reports and Pathology Reports are provided separately, in subsequent sections. Lab Results This section contains the Chemistry/Hematology Results that were resulted 30 days before or 30 daysafter the date of the Encounter. Date/Time Source Result Type Result - Unit Interpretation Reference Range Specimen Type Comment Jul 22, 2025 10:16 AM [facility] MICROALBUMIN CREATININE RATIO PANEL URINE Spe cimen Type: URINE No comment entered. Ordering Provider: HUMBERTO VELAZQUEZ Report Released Date/Time: Apr 12, 2025 03:48 PM Reporting Lab: [facility] [address] [facility] [address] Performing Lab: [facility] [address] [address] MICROALBUMIN/CREATININE RATIO 9.4 mg/g 0 -29.9 MICROALBUMIN,QUANTITATIVE 1.9 mg/dL RR U NAVAIL CREATININE URINE 202.90 mg/dL H 63-166 Jul 05, 2025 03:09 PM [facility] HEAVY METALS PANEL,BLOOD BLOOD Specimen Type: BLOOD Comment: REFERENCE RANGE: <23 mcg/L Whole Blood Arsenic level >100 mcg/L is indicative of acute/chronic exposure. Urine is usually the best specimen for the analysis of arsenic in body fluids. Blood levels tend to be low even when urine concentrations are high This test was developed and its analytical performance characteristics have been determined by [employer], [place]. It has not been cleared or approved by the U.S. Food and Drug Administration. This assay has been validated pursuant to the CLIA regulations and is used for clinical purposes. REFERENCE RANGE: <3.5 mcg/dL A blood lead reference value of <5 mcg/dL should apply to only [facility] residents per [facility]. Analysis was performed by Inductively Coupled Plasma Mass Spectrometry (ICPMS) This test was developed and its analytical performance characteristics have been determined by [employer]. It has not been cleared or approved by the U.S. Food and Drug Administration. This assay has been validated pursuant to the CLIA regulations and is used for clinical purposes. REFERENCE RANGE: <=10 mcg/L This test was developed and its analytical performance characteristics have been determined by [employer] [place], [place]. It has not been cleared or [...] analytical performance characteristics have been determined by [employer] [place]. It has not been cleared or approved by the U.S. Food and Drug Administration. This assay has been validated pursuant to the CLIA regulations and is used for clinical purposes. Test Performed by [facility], [facility], [address] [place], [place] Morgan Irving M.D., Ph.D., Director of Laboratories , CLIA [id number] TEST PERFORMED AT: , Ordering Provider: LIZ VELAZQUEZ Report Released Date/Time: Apr 12, 2025 03:48 PM Reporting Lab: [facility] [address] [address] Performing Lab: [facility] [address] [address] CADMIUM <0.5 ug/L ARSENIC, BLOOD <3 ug/L SEE BELOW LEAD,BLOOD (Q) <1.0 ug/dL SEE BELOW MERCURY, BLOOD <4 ug/L SEE BELOW Jul 05, 2025 03:09 PM [facility] FOLATE SERUM Specimen Type: SERUM No comment entered. Ordering Provider: LIZ VELAZQUEZ Report Released Date/Time: Apr 12, 2025 03:48 PM Reporting Lab: [facility] [address] [address] Performing Lab: [facility] [address] [address] FOLATE 11.9 ng/mL 7.0-31.4 Jul 05, 2025 03:09 PM [facility] LIPID PANEL, NON FASTING SERUM Specimen Type: SERUM No comment entered. Ordering Provider: LIZ VELAZQUEZ Report Released Date/Time: Apr 12, 2025 03:48 PM Reporting Lab: [facility] [address] [address] Performing Lab: [address] [address] CHOLESTEROL 167 mg/dL 0-199 TRIGLYCERIDE 187 mg/dL H 0-149 LDL calculated 89 mg/dL 0-129 CHOL/HDL 4.1 HDL CHOLESTEROL 41 mg/dL >40 Jul 05, 2025 03:09 PM [facility] LIVER FUNCTION SERUM Specimen Type: SERUM No comment entered. Ordering Provider: LIZ VELAZQUEZ Report Released Date/Time: Apr 12, 2025 03:48 PM Reporting Lab: [facility] [address] [address] Performing Lab: [address] [address] PROTEIN,TOTAL 7.1 g/dL 6.4-8.3 ALBUMIN 4.2 g/dL 3.2-4.6 ALKALINE PHOSPHATASE 69 U/L 40-150 AST 28 U/L 5-34 ALT 15 U/L 0-55 BILIRUBIN, TOTAL 0.5 mg/dL 0.2-1.2 Jul 05, 2025 03:09 PM [facility] HEMOGLOBIN A1C PANEL BLOOD Specimen Type: BLO OD Comment: Values obtained from A1C measurements can vary. For atypical A1C assays, a reported value of 7.0 could actually be between 6.72 and 7.28 if measured by a reference method. A reported value of 9.0 could actually be between 8.73 and 9.27. Ref: http://www.ngsp.org/CAPdata.asp Ordering Provider: LIZ VELAZQUEZ Report Released Date/Time: Apr 12, 2025 03:48 PM Reporting Lab: [address] [address] Performing Lab: [address] [address] HEMOGLOBIN A1C 5.8 H 4.0-5.6 Jul 05, 2025 03:09 PM [facility] BASIC METABOLIC PANEL (non-fasting) SERUM Spe cimen Type: SERUM No comment entered. Ordering Provider: LIZ VELAZQUEZ Report Released Date/Time: Apr 12, 2025 03:48 PM Reporting Lab: [facility] [address] [facility] [address] Performing Lab: [address] [address] UREA NITROGEN 21 mg/dL 8-26 GLUCOSE 87 mg/dL 65-100 SODIUM 142 mmol/L 136-145 POTASSIUM 4.5 mmol/L 3.5-5.1 CHLORIDE 107 mmol/L 98-107 CO2 22 meq/L L 23-31 CALCIUM 8.6 mg/dL L 8.8-10 CREATININE, Serum 1.27 mg/dL H 0.72-1.25 eGFR(CKD-EPI 2020) 62 mL/min >60 ANION GAP 13 meq/L 6-16 Jul 05, 2025 03:09 PM [facility] LIPID PANEL FASTING SERUM Specimen Ty pe: SERUM No comment entered. Ordering Provider: KATIE LLAMAS Report Released Date/Time: May 24, 2025 06:24 PM Reporting Lab: [facility] [address] [facility] [address] Performing Lab: [address] [address] CHOLESTEROL 167 mg/dL 0-199 TRIGLYCERIDE 187 mg/dL H 0-149 LDL calculated 89 mg/dL 0-129 CHOL/HDL 4.1 HDL CHOLESTEROL 41 mg/dL >40 Jul 05, 2025 03:09 PM [facility] CBC AND DIFF (AUTO) BLOOD Specimen Type: BLOO D No comment entered. Ordering Provider: LIZ VELAZQUEZ Report Released Date/Time: Apr 12, 2025 03:48 PM Reporting Lab: [facility] [address] [facility] [address] Performing Lab: [address] [address] WBC 7.70 10*3/uL 4.50-11.00 RBC 5.64 10*6/uL [...] 10*3/uL 0.00-0.00 Jul 05, 2025 03:09 PM [facility] VITAMIN B12 SERUM Specimen Type: SERUM No comment entered. Ordering Provider: LIZ VELAZQUEZ Report Released Date/Time: Jun 27, 2025 01:59 PM Reporting Lab: [address] [address] Performing Lab: [address] [address] VITAMIN B12 467 pg/mL 213-816 Immunizations: All administered on the encounter date This section contains immunizations associated to the Encounter. Immunization Series Date Issued Administered By Site Reaction Lot Number [id number] Code Drug Oim Consultant Comment(s) Source INFLUENZA, ADJUVANTED, TRIVALENT, PF Jun 30, 2025 DIVINELIZBETHN RIGHT DELTO ID [id number] SEQIRUS ADMINISTERE D AT [place], [facility] Social History: Smoking Status (Most current) and Tobacco Use (All prior to encounter date) This section includes the most current, and the historical, smoking and tobacco- related health factors from the [place] facility where the Encounter took place. Current Smoking Status This section includes the most current smoking, or tobacco-related health factor, from the [place] facility where the Encounter took place. Date/Time Current Smoking Status Comment Facil ity Sep 17, 2021 11:00 AM VA-TOBACCO FORMER USER [facility] Tobacco Use History This section includes a history of the smoking, or tobacco-related health factors, that were collected on or before the date of the Encounter. The data comes from the [place] facility where the Encounter took place. Date/Time Smoking Status/Tobac co Use Comment Facility Sep 17, 2021 11:00 AM VA-TOBACCO QUIT 15 YRS OR MORE [facility] Mar 01, 2020 01:30 PM [facility]-TOBACCO [facility] Mar 01, 2020 01:30 PM VA-TOBACCO QUIT 15 YRS OR MORE [facility] Jan 20, 2019 09:37 AM HI-TOBACCO NEVER USED [facility] Dec 11, 2017 05:17 PM QUIT TOBACCO USE > 7 YEARS AGO [facility] Jan 20, 2017 03:12 PM QUIT TOBACCO USE > 7 YEARS AGO [facility] January 09, 2016 08:48 AM QUIT TOBACCO USE > 7 YEARS AGO . [facility] Jun 09, 2006 05:45 PM LIFETIME NON-TOBACCO USER [facility] Aug 22, 2003 03:27 PM HISTORY OF SMOKING [facility] Aug 22, 2003 03:27 PM QUIT TOBACCO USE IN PAST YEAR [facility] Jun 24, 2003 12:01 PM CURRENT SMOKER about 1 week/so [facility] Advance Directives: All historical and current Section Date Range: From patient's date of to the date document was created. This section includes ALL of a patient's completed or amended [place] Advance and Rescinded Directives. The entries below indicate that a directive exists for the patient, but an actual copy is not included with this document. The data comes from all [facility]. Date Advance Directives Provider Source Apr 08, 2024 ADVANCE DIRECTIVE LATONYA EWING [facility] Sep 19, 2021 GOALS & PREFERENCES TO INFORM LIFE-SUSTAINING TREATMENT PLAN MARY VIVAS [facility] Sep 19, 2020 ADVANCE DIRECTIVE ALANA MONIQUE [facility] Encounter Notes: All associated encounter notes This section contains the clinical notes associated to the Encounter. Date/Time Encounter Note(s) Provider Source Jun 30, 2025 12:00 PM HB NURSING NOTE: LOCAL TITLE: HBPC RN PROGRESS NOTE STANDARD TITLE: HB NURSING NOTE DATE OF NOTE: JUN 30, 2025@12:00 ENTRY DATE: JUN 30, 2025@17:57:21 AUTHOR: EWA HASKINS COSIGNER: URGENCY: STATUS: COMPLETED Nursing Progress Note Active and Recently Outpatient Medications (including Supplies): Active Outpatient Medications [...] STOOL Indication: FOR CONSTIPATION 6) ESCITALOPRAM OXALATE 10MG TAB TAKE ONE TABLET BY MOUTH ONCE ACTIVE DAILY FOR MOOD/DEPRESSION ### Indication: FOR MAJOR DEPRESSIVE DISORDER 7) MELATONIN [...] FOUR TIMES DAILY NEEDED ### Indication: MOOD 13) RIVASTIGMINE TARTRATE 3MG CAP [...] ### Indication: FOR INSOMNIA ASSOCIATED WITH DEPRESSION MEDICATION REVIEW Medication review completed during home visit. The was given the opportunity to discuss and ask questions about all prescription medications as well as dietary and herbal supplements, vitamins, OTC medications, etc. Currently the is taking his/her medications as per the active orders in the electronic record. A copy of the active medication list was left in patient's home at time of visit. identified by: Full Name, Address Length of visit in home: 30min Problem addressed for this visit: Dementia Anxiety Case Mgt: 15 min Visit time: 30 min Documentation: [address] time: 40 min NURSING SUMMARY: Rn performed in home visit at Blain's home for assessment of chronic disease management CVCP assessment, medication reviewed with oversight, pain mgt, skin assessment, coping and home safety. is alert, very anxious, pacing. how long are you staying when are you leaving did sit down for this service writer to quickly perform an assessment. VSS. Blain noted to be short of breath at rest. He denies feeling SOB. HR reg, rapid, unable to get a though assessment due to 's anxiety level. Ls clear. No Edema noted. Blain denies any Cp or Palp. Blain's cg reported she noticed 's SOB since the time change. This service writer reported findings to Liz Lyly-Jarrell BRAKE HOLDER who ordered Ekg. Blain's cg was informed to seek urgent care services if she notices an increase in 's respirations, SOB, C.O CP or palpitations. To notify [facility] if any increase in Edema to BLE, abd distension, change in mental status. Cg verbalizes understanding. Blain declined blood draw. Cg to bring Blain to lab on Jul 05 when Blain is at the clinic with Dr Ade gonzalez. will also have Ekg on that day. Blain agreed to Influenza Vaccine. Adminstered to R Deltoid IM per protocol. Blain al well. Site benign. Written material reviewed with Blain and left in home for to refer to. Declined COVID Vax Blood Pressure: 105/70 (04/12/2025 15:33) Pulse: 80 (04/12/2025 15:33) Respiration: 16 (04/12/2025 15:33) Temperature: 98.6 F [37.0 C] (04/12/2025 15:33) Pain Score: 1 (04/12/2025 15:33) Denies any pain EXAMINATION: Lungs: CTA Edema: none noted. PPP HR: ? Irreg Blain not cooperative during assessment Bowel/Bladder: Denies any issues. Appetite wnl Skin: CDI denies any worrisome issues If pain score is above 0/10: Are you having any new pain or worsening chronic pain? No Are you satisfied with your current pain management plan? Yes - Continue with your current pain management plan. Home Safety 's home is safely adapted. FALLS NO INFECTIONS NO ER/HOSPITALIZATIONS NO Teaching/goals: has ongoing complex medical needs and benefits from [facility] interdisciplinary management. and cg are included in decision making. All questions answered, education. regarding medications, disease mgt provided. Blain and caregiver verbalize understanding. will be free from falls, infections, and hospitalizations over the next 30 days. Patient verbalizes understanding to above and will call with any concerns or changes in condition. For emergent care call 911. Plan for next visit: Aug 25 per cg request or sooner if needed. [facility] Assessment for Chronic Disease Mgt. /erasto/ Ewa DOHERTY HB termite treater helper Signed: 06/30/2025 18:07 EWA HASKINS [facility] Jun 30, 2025 12:00 PM PREVENTIVE MEDICIN E NURSING NOTE: LOCAL TITLE: CLINICAL REMINDERS/NURSING STANDARD TITLE: PREVENTIVE MEDICINE NURSING NOTE DATE OF NOTE: JUN 30, 2025@12:00 ENTRY DATE: JUN 30, 2025@18:07:43 AUTHOR: EWA HASKINS EXP COSIGNER: URGENCY: STATUS: COMPLETED Influenza Immunization: Influenza, Trivalent, Preservative Free (Fluad-Syringe) Administered: INFLUENZA, ADJUVANTED, TRIVALENT, PF Date Administered: Jun 30, 2025 12:00 Oim Consultant: SEQIRUS Lot: [id number] Exp Date: Jan 27, 2026 [facility]: [id number] Admin Route/Site: INTRAMUSCULAR/RIGHT DELTOID Dosage: 0.5mL Vaccine Information Statement(s): INFLUENZA(FLU) VACC(INACTIVATED OR RECOMBINANT)VIS Sep 17, 2024 (ARMENIAN) Order By: Policy Administered By: Ewa Haskins The Influenza Vaccine Information Statement (VIS) was reviewed with the patient/caregiver which lists the benefits and risks of the vaccine and the risks of not receiving the Influenza vaccine. The patient/caregiver denied any prior severe reaction to this vaccine or its components or a severe allergic reaction, such as anaphylaxis, to any vaccine or any injectable therapy. The patient/caregiver gave verbal consent to receive the vaccine. /erasto/ Ewa DOHERTY HBPC termite treater helper Signed: 06/30/2025 18:08 Receipt Acknowledged By: 07/08/2025 10:37 /erasto/ ADAN NOEL [facility] PLASTERING SUPERVISOR EWA HASKINS [facility]
--- OUTSIDE RECORDS SUMMARY | 2025-07-05 10:30 | XMS_ITS | Encounter Summary ---
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 Name Role Phone IVAN CHERRY Primary Care [...] (PPO) BASIC SELF Aug 21, 2013 111 [id number] [phone] GISELL CELIO PATIENT ANTHE[place] PREFERRED PROVIDER ORGANIZAT ION (PPO) FEP BASIC IND Aug 21, 2013 111 [id number] [phone] CELIO GARDNER PATIENT ANTHEM FEP PREFERRED PROVIDER ORGANIZAT ION (PPO) FEP BASIC SELF Aug 21, 2013 111 [id number] [phone] EricHONEYELVIACELIO BARAHONA PATIENT BCBS FEP PREFERRED PROVIDER ORGANIZAT ION (PPO) [id number] Aug 21, 2013 111 [id number] CELIO GARDNER PATIENT BCBS YOLANDA ATTN FEP CLAIMS PREFERRED PROVIDER ORGANIZAT ION (PPO) FEP BASIC IND Aug 21, 2013 111 [id number] [phone] CELIO GARDNER PATIENT [place] FEP PREFERRED PROVIDER ORGANIZAT ION (PPO) FEP BASIC IND Aug 21, 2013 111 [id number] [phone] CELIO GARDNER PATIENT [place]BS [place] F[place] PREFERRED PROVIDER ORGANIZAT ION (PPO) BASIC INDIV IDUAL Aug 21, 2013 111 [id number] [phone] CELIO JAMESON PATIENT BCBS OF [place] FEP PREFERRED PROVIDER ORGANIZAT ION (PPO) BASIC SELF Aug 21, 2013 111 [id number] CELIO GARDNER PATIENT [place] F[place] PREFERRED PROVIDER ORGANIZAT ION (PPO) BASIC SELF Aug 21, 2013 111 [id number] CELIO JAMESON PATIENT [place] FEP DENTAL DENTAL INSURANCE BASIC Aug 21, 2013 DENTAL [id number] CELIO GARDNER PATIENT [place] OF [place] FEP PREFERRED PROVIDER ORGANIZAT ION (PPO) BASIC SELF Aug 21, 2013 111 [id number] [phone] CELIO GARDNER PATIENT [place] OF [place] FEDERAL PREFERRED PROVIDER ORGANIZAT ION (PPO) BASIC SELF Aug 21, 2013 111 [id number] [phone] CELIO GARDNER PATIENT [place] PREFERRED PROVIDER ORGANIZAT ION (PPO) STAND [place] FAMIL Y Aug 18, 2006 105 [id number] CELIO GARDNER PATIENT KEHINDEFIRST BCBS FEP MEDICARE SECONDARY (NO B EXC) FEHB BASIC MEDSE C Aug 21, 2013 111 [id number] [phone] CELIO GARDNER PATIENT CAREFIRST BCBS FEP PREFERRED PROVIDER ORGANIZAT ION (PPO) FEP STAND MAG[place] Sep 23, 2006 [id number] CELIO GARDNER PATIENT [place] FEP ([id number]) PRESCRIPT ION FEP RX Aug 21, 2013 [id number] [phone] CELIO GARDNER [place] FEP [id number] PRESCRIPT ION FEPRX Aug 21, 2013 [id number] [phone] CELIO GARDNER [place] FEP BCBS PRESCRIPT ION CAREAde ARK FEPRX Aug 21, 2013 [id number] [phone] CELIO JAMESON FEP RX [id number] PRESCRIPT ION [id number] Aug 21, 2013 [id number] [phone] CELIO GARDNER CAR[place]ARK-F EP BCBS PRESCRIPT ION FEP Aug 21, 2013 [id number] CELIO GARDNER PATIENT MEDICARE ([facility]) MEDICARE (M) PART A Nov 16, 2021 PART A [id number] [phone] CELIO GARDNER PATIENT MEDICARE ([facility]) MEDICARE (M) PART B Nov 16, 2021 PART B [id number] [phone] CELIO GARDNER PATIENT MEDICARE ([facility]) MEDICARE (M) PART A Nov 16, 2021 PART A [id number] [phone] CELIO GARDNER PATIENT MEDICARE ([facility]) MEDICARE (M) PART B Nov 16, 2021 PART B [id number] [phone] CELIO GARDNER PATIENT MEDICARE ([facility]) MEDICARE (M) PART A Nov 16, 2021 PART A [id number] CELIO GARDNER PATIENT MEDICARE ([facility]) MEDICARE (M) PART B Nov 16, 2021 PART B [id number] CELIO GARDNER PATIENT MEDICARE ([facility]) MEDICARE (M) PART A Nov 16, 2021 PART A [id number] [phone] CELIO GARDNER PATIENT MEDICARE ([facility]) MEDICARE (M) PART B Nov 16, 2021 PART B [id number] CELIO GARDNER PATIENT MEDICARE ([facility]) MEDICARE (M) PART A Nov 16, 2021 PART A [id number] CELIO GARDNER PATIENT MEDICARE ([place]) MEDICARE (M) PART B Nov 16, 2021 PART B [id number] [phone] CELIO GARDNER PATIENT MEDICARE (WNR) MEDICARE (M) PART A Nov 16, 2021 PART A [id number] [phone] CELIO GARDNER PATIENT MEDICARE (WNR) MEDICARE (M) PART B Nov 16, 2021 PART B [id number] [phone] CELIO GARDNER PATIENT MEDICARE PART D (WNR) MEDICARE (M) PART D Aug 18, 2023 PART D [id number] [phone] CELIO GARDNER PATIENT Selected Encounter This section includes the information on record at [place] for the Encounter. Date/Time Encounter Type Encounter Description Reason Provider Source Jul 05, 2025 03:30 PM OFFICE O/P EST HI [facility] - IND ICD-10-CM F33.3 Major depressv disorder, recurrent, severe w psych symptoms VIGNESH LLAMAS Alcides Encounter Template Text not used by [place] Assessments - Encounter Diagnoses This section includes the primary and secondary diagnoses documented for the Encounter. Date/Time Primary/Secondary Diagnosis Diagnosis Name Provider Source Jul 06, 2025 09:17 AM PRIMARY Major depressv disorder, recurrent, severe w psych symptoms KATIE LLAMAS Plan of Treatment: Future Appointments (+ 6 months) and Future Tests (+/- 45 days) The Plan of Treatment section includes future care activities for the patient from all [place] treatmentfacilities. This section includes future appointments and future orders which are active, pending or scheduled. Future Appointments This section includes appointments that were scheduled to occur 6 months from the date of the Encounter, up to a maximum of 20 appointments. The data comes from all [place] treatment facilities. Appointment Date/Time Appointment Type Appointme nt Facility Name Jul 22, 2025 09:45 AM AMBULATORY - NONE [place] [facility] [facility] Jul 27, 2025 09:00 AM [facility] [place] [facility] Aug 23, 2025 03:30 PM AMBULATORY - PSYCHIATRY [facility] December 27, 2025 02:00 PM AMBULATORY - MEDICINE [facility] Active, Pending, and Scheduled Orders This section includes a listing of several types of active, pending, and scheduled orders, including clinic medications orders, diagnostic test orders, procedure orders and consult orders; where the start date of the order is 45 days before the date of the Encounter or 45 days after the date of theEncounter. The data comes from all [place] treatment facilities. Test Date/Time Test Type Test Details Facility Name Jul 06, 2025 03:42 PM Consult Order [facility]-CARDIOLOGY Cons [facility] [place] Lab Results: +/- 30 days of the encounter This section includes the Chemistry and Hematology Lab Results on record with [place] for the patient. Radiology Reports and Pathology Reports are provided separately, in subsequent sections. Lab Results This section contains the Chemistry/Hematology Results that were resulted 30 days before or 30 daysafter the date of the Encounter. Date/Time Source Result Type Result - Unit Interpretation Reference Range Specimen Type Comment Jul 22, 2025 10:16 AM [facility] MICROALBUMIN CREATININE RATIO PANEL URINE Spe cimen Type: URINE No comment entered. Ordering Provider: HUMBERTO CHERRY Report Released Date/Time: Apr 12, 2025 03:48 PM Reporting Lab: [facility] [address] [address] Performing Lab: [facility] [address] [address] MICROALBUMIN/CREATININE RATIO 9.4 mg/g 0 -29.9 MICROALBUMIN,QUANTITATIVE 1.9 mg/dL RR U NAVAIL CREATININE URINE 202.90 mg/dL H 63-166 Jul 05, 2025 03:09 PM [facility] HEAVY METALS PANEL,BLOOD BLOOD Specimen Type: BLOOD Comment: REFERENCE RANGE: <23 mcg/L Whole Blood Arsenic level >100 mcg/L is indicative of acute/chronic exposure. Urine is usually the best specimen for the analysis of arsenic in body fluids. Blood levels tend to be low even when urine concentrations are high This test was developed and its analytical performance characteristics have been determined by [facility] [place]. It has not been cleared or approved by the U.S. Food and Drug Administration. This assay has been validated pursuant to the CLIA regulations and is used for clinical purposes. REFERENCE RANGE: <3.5 mcg/dL A blood lead reference value of <5 mcg/dL should apply to only [facility] residents per [facility]. Analysis was performed by Inductively Coupled Plasma Mass Spectrometry (ICPMS) This test was developed and its analytical performance characteristics have been determined by [employer] [place]. It has not been cleared or approved by the U.S. Food and Drug Administration. This assay has been validated pursuant to the CLIA regulations and is used for clinical purposes. REFERENCE RANGE: <=10 mcg/L This test was developed and its analytical performance characteristics have been determined by [employer] [place]. It has not been cleared or [...] analytical performance characteristics have been determined by [employer] [place]. It has not been cleared or approved by the U.S. Food and Drug Administration. This assay has been validated pursuant to the CLIA regulations and is used for clinical purposes. Test Performed by [facility], [facility] [place], [address] [place], [place] Morgan Irving M.D., Ph.D., Director of Laboratories , CLIA [id number] TEST PERFORMED AT: , Ordering Provider: IVAN CHERRY Report Released Date/Time: Apr 12, 2025 03:48 PM Reporting Lab: [place] [id number] Performing Lab: [facility] [address] [address] CADMIUM <0.5 ug/L ARSENIC, BLOOD <3 ug/L SEE BELOW LEAD,BLOOD (Q) <1.0 ug/dL SEE BELOW MERCURY, BLOOD <4 ug/L SEE BELOW Jul 05, 2025 03:09 PM [facility] FOLATE SERUM Specimen Type: SERUM No comment entered. Ordering Provider: IVAN CHERRY Report Released Date/Time: Apr 12, 2025 03:48 PM Reporting Lab: [address] [address] Performing Lab: [address] [address] FOLATE 11.9 ng/mL 7.0-31.4 Jul 05, 2025 03:09 PM [facility] LIPID PANEL, NON FASTING SERUM Specimen Type: SERUM No comment entered. Ordering Provider: IVAN CHERRY Report Released Date/Time: Apr 12, 2025 03:48 PM Reporting Lab: [facility] [address] [address] Performing Lab: [facility] [address] [address] CHOLESTEROL 167 mg/dL 0-199 TRIGLYCERIDE 187 mg/dL H 0-149 LDL calculated 89 mg/dL 0-129 CHOL/HDL 4.1 HDL CHOLESTEROL 41 mg/dL >40 Jul 05, 2025 03:09 PM [facility] BASIC METABOLIC PANEL (non-fasting) SERUM Spe cimen Type: SERUM No comment entered. Ordering Provider: IVAN CHERRY Report Released Date/Time: Apr 12, 2025 03:48 PM Reporting Lab: [facility] [address] [address] Performing Lab: [address] [address] UREA NITROGEN 21 mg/dL 8-26 GLUCOSE 87 mg/dL 65-100 SODIUM 142 mmol/L 136-145 POTASSIUM 4.5 mmol/L 3.5-5.1 CHLORIDE 107 mmol/L 98-107 CO2 22 meq/L L 23-31 CALCIUM 8.6 mg/dL L 8.8-10 CREATININE, Serum 1.27 mg/dL H 0.72-1.25 eGFR(CKD-EPI 2020) 62 mL/min >60 ANION GAP 13 meq/L 6-16 Jul 05, 2025 03:09 PM [facility] LIVER FUNCTION SERUM Specimen Type: SERUM No comment entered. Ordering Provider: IVAN CHERRY Report Released Date/Time: Apr 12, 2025 03:48 PM Reporting Lab: [address] [address] Performing Lab: [address] [address] PROTEIN,TOTAL 7.1 g/dL 6.4-8.3 ALBUMIN 4.2 g/dL 3.2-4.6 ALKALINE PHOSPHATASE 69 U/L 40-150 AST 28 U/L 5-34 ALT 15 U/L 0-55 BILIRUBIN, TOTAL 0.5 mg/dL 0.2-1.2 Jul 05, 2025 03:09 PM [facility] HEMOGLOBIN A1C PANEL BLOOD Specimen Type: BLO OD Comment: Values obtained from A1C measurements can vary. For atypical A1C assays, a reported value of 7.0 could actually be between 6.72 and 7.28 if measured by a reference method. A reported value of 9.0 could actually be between 8.73 and 9.27. Ref: http://www.ngsp.org/CAPdata.asp Ordering Provider: IVAN CHERRY Report Released Date/Time: Apr 12, 2025 03:48 PM Reporting Lab: [address] [address] Performing Lab: [address] [address] HEMOGLOBIN A1C 5.8 H 4.0-5.6 Jul 05, 2025 03:09 PM [facility] [place] LIPID PANEL FASTING SERUM Specimen Ty pe: SERUM No comment entered. Ordering Provider: KATIE LLAMAS Report Released Date/Time: May 24, 2025 06:24 PM Reporting Lab: [facility] [address] [address] Performing Lab: [facility] [address] [address] CHOLESTEROL 167 mg/dL 0-199 TRIGLYCERIDE 187 mg/dL H 0-149 LDL calculated 89 mg/dL 0-129 CHOL/HDL 4.1 HDL CHOLESTEROL 41 mg/dL >40 Jul 05, 2025 03:09 PM [facility] CBC AND DIFF (AUTO) BLOOD Specimen Type: BLOO D No comment entered. Ordering Provider: IVAN CHERRY Report Released Date/Time: Apr 12, 2025 03:48 PM Reporting Lab: [facility] [address] [address] Performing Lab: [address] [address] WBC 7.70 10*3/uL 4.50-11.00 RBC 5.64 10*6/uL [...] 10*3/uL 0.00-0.00 Jul 05, 2025 03:09 PM [facility] VITAMIN B12 SERUM Specimen Type: SERUM No comment entered. Ordering Provider: IVAN CHERRY Report Released Date/Time: Jun 27, 2025 01:59 PM Reporting Lab: [facility] [address] [address] Performing Lab: [address] [address] VITAMIN B12 467 pg/mL 213-816 Advance Directives: All historical and current Section Date Range: From patient's date of to the date document was created. This section includes ALL of a patient's completed or amended [place] Advance and Rescinded Directives. The entries below indicate that a directive exists for the patient, but an actual copy is not included with this document. The data comes from all [place] facilities. Date Advance Directives Provider Source Apr 08, 2024 ADVANCE DIRECTIVE LATONYA EWING [facility] Sep 19, 2021 GOALS & PREFERENCES TO INFORM LIFE-SUSTAINING TREATMENT PLAN MARY VIVAS [facility] Sep 19, 2020 ADVANCE DIRECTIVE ALANA MONIQUE [facility] Encounter Notes: All associated encounter notes This section contains the clinical notes associated to the Encounter. Date/Time Encounter Note(s) Provider Source Jul 05, 2025 06:13 PM PSYCHIATRY NOTE: LOCAL TITLE: PSYCHIATRY NOTE STANDARD TITLE: PSYCHIATRY NOTE DATE OF NOTE: JUL 05, 2025@18:13 ENTRY DATE: JUL 05, 2025@18:13:24 AUTHOR: KATIE LLAMAS EXP COSIGNER: URGENCY: STATUS: COMPLETED PSYCHIATRY NOTE Has ADDENDA 40 min for encounter, including chart review, interview, charting, and reviewing for consultation with my colleague Dr barriga chart reviewed Patient seen with his , Dennise Ongoing depressed mood and anxiety. Affect blunted. No PI or delusions presented [...] sometimes better in the evenings w less anxiety, although this was not as good after lowered quetiapine, a little better as added back some low dose quetiapine As noted in previous appts -- in [...] is very supportive. Pt/ recently moved to [place] wt 194 lb 03/2025 ; VS ok [...] Hypofunction 20. Benign prostatic hyperplasia (SNOMED CT 967521937) 21. Impaired Fasting Glucose 22. Exercise induced bronchospasm (SNOMED CT 961237172) 23. Hyperlipidemia (SNOMED CT 68621269) Active Outpatient Medications (including Supplies): Active Outpatient [...] dose doxepin was not helpful for insomnia [employer] -- not tolerate due to confusion wellbutrin [...] Major neurocognitive do -- sees neurology outside [place] - unspecified neurodegenerative process considered likely - [...] PLAN: Careful risk assessment performed. See C-SSRS 03/18/25, same today. The pt is probably low risk for suicide or violence -- the patient denied suicidal and violent ideation, but the [facility] Crisis Line information and number were reviewed w patient/ as a precaution. I have advised patient to talk with family/aides if there are any concerns about safety. As noted previously, given the patient's cognitive decline, the important part of pt's safety is supervision by /family/assistants Reviewed again w pt re considering elective inpt admission to [place] [facility] unit for assessment and medication adjustment, but patient has repeatedly strongly declined this, he is not committable Pt can continue psychotherapy with Candelaria Cheryl - but pt has not wanted to igor as noted before, neuropsych testing -- see results in [facility] CONTINUE NAMENDA 10 MG TWICE DAILY for dementia. CONTINUE RIVASTIGMINE 3 MG TWICE DAILY, for dementia, well-tolerated, and pt had taken lower dose for about a wk with increased cognitive problems noted by , then this dose resumed TAPER PT OFF LEXAPRO -- this has not helped sufficiently w depression/anxiety - the instructions for start of taper given to pt's . Consider another mirtazapine trial for depression and anxiety, but still reviewing this. Mirtazapine would replace Lexapro and potentially trazodone (as mirtazapine is sedating), will call pt/ to discuss further after reviewing more with my colleague We have repeatedly discussed considering reducing patient's medication, especially sedating medication over time to see if this helps patient's cognition. Patient has been very reluctant to do this because he is concerned about increased depression and anxiety, but he did agree to reduction in clonazepam and Seroquel in previous appointments, and quetiapine in particular has been tapered down. And tapered off depakote previously. But today we decided that quetiapine is calming for pt/improves quality of life - CONTINUE QUETIAPINE UP TO 12.5 MG QID . Quetiapine provides [...] INSOMNIA -- helpful; can also take MELATONIN PRN (thr primary care); this can be decreased if patient too [...] pressure, weights, lipids, glucose primary care to [facility] -- Kathy Cherry as primary care in [place] -- I have reviewed with Kathy Vieyra re pt previously See prior notes for discussions of previous neurologic evals of pt -- [place] [facility], suggesting Lewy Body Dementia. See Dr. Johnson's notes. But more recent evaluation by neurologist at [facility] may suggest other form of [...] repeatedly reviewed with Dr. Barriga for his opinion/input, including today. He agrees with assessment and plan. I have greatly appreciate his input. neurologist, Osman Ma, [facility] [phone] As noted before, note that the patient had a brain JEZ SPECT study at [facility]--10/31/2023, see my 11/02/24 note for discussion As noted previously, pt had psychiatry consult 01/15/24 at [place] [facility] and his sent the assessment to me, by Dr. Orlin Fisher. I have reviewed this. The diagnoses by Dr Fisher included neurocognitive disorder, depression unspecified. Recommendations appreciated. I was also able to review w Dr. Fisher by phone - see my 06/22/24 note for more discussion Medication Reconciliation: Outpatient: [...] /es/ KATIE LLAMAS MD STAFF PSYCHIATRIST Signed: 07/06/2025 09:17 07/08/2025 ADDENDUM STATUS: COMPLETED I reviewed with the patient's today 07/08 over the phone about possible medication options, and we decided upon low-dose mirtazapine as we taper off the Lexapro. The patient had been on mirtazapine in the past in combination with other medications, but he might have a reasonable response with mirtazapine at this point for depression, anxiety, insomnia (the regimen will be simpler to allow better assessment of response, and at this point even partial response would be helpful to pt). Substituting in mirtazapine would allow possibly discontinuing 3 medications (Lexapro, trazodone, melatonin) and adding 1 (mirtazapine). I reviewed the side effect profile of mirtazapine with the patient's , including risk of weight gain and sedation. We plan to make use of the sedation to help the patient instead of other medications for sleep. I also again reviewed with pt's the potential cardiac side effects/risks with psych medications, although these are likely low, and likely to be very low with low dose mirtazapine. Overall the benefits of the current psychiatric medications outweigh risks (and potential benefits of changes above also outweigh risks). Again I have reviewed with Dr Barriga in detail re the above and he agrees, I appreciate his input. /erasto/ KATIE LLAMAS MD STAFF PSYCHIATRIST Signed: 07/10/2025 21:34 07/10/2025 ADDENDUM STATUS: COMPLETED also note that we will continue the melatonin and trazodone for now, until see how pt does w start of low dose mirtazapine, but then try to taper one or both of these at next visit (or pt's will call sooner if needed); pt's feels that maintaining good sleep at night is very important for pt in terms of quality of life, given the level of anxiety and depressive sx's he struggles with during the day, this is reasonable /erasto/ KATIE LLAMAS MD STAFF PSYCHIATRIST Signed: 07/10/2025 21:40 KATIE LLAMAS
--- OUTSIDE RECORDS SUMMARY | 2025-08-08 10:33 | XMS_ITS | Encounter Summary ---
Author Name [facility] [place] [facility] [place] [facility] [place] Address [address] [place] [address] Care Team Providers Care Glued Wood Tester Name Role Phone IVAN VELAZQUEZ Primary Care [...] (PPO) BASIC SELF Aug 21, 2013 111 [id number] [phone] GISELL CELIO PATIENT ANTHEM [place] FEP PREFERRED PROVIDER ORGANIZAT ION (PPO) FEP BASIC IND Aug 21, 2013 111 [id number] [phone] CELIO GARDNER PATIENT ANTHEM FEP PREFERRED PROVIDER ORGANIZAT ION (PPO) FEP BASIC SELF Aug 21, 2013 111 [id number] [phone] GISELL CELIO PATIENT BCBS FEP PREFERRED PROVIDER ORGANIZAT ION (PPO) [id number] Aug 21, 2013 111 [id number] CELIO GARDNER PATIENT BCBS YOLANDA ATTN FEP CLAIMS PREFERRED PROVIDER ORGANIZAT ION (PPO) FEP BASIC IND Aug 21, 2013 111 [id number] [phone] CELIO GARDNER PATIENT [place] FEP PREFERRED PROVIDER ORGANIZAT ION (PPO) FEP BASIC IND Aug 21, 2013 111 [id number] [phone] CELIO GARDNER PATIENT [place] FEP PREFERRED PROVIDER ORGANIZAT ION (PPO) BASIC INDIV IDUAL Aug 21, 2013 111 [id number] [phone] CELIO JAMESON PATIENT [place] FEP PREFERRED PROVIDER ORGANIZAT ION (PPO) BASIC SELF Aug 21, 2013 111 [id number] CELIO GARDNER PATIENT [place] FEP PREFERRED PROVIDER ORGANIZAT ION (PPO) BASIC SELF Aug 21, 2013 111 [id number] [phone] CELIO JAMESON PATIENT [place] FEP DENTAL DENTAL INSURANCE BASIC Aug 21, 2013 DENTAL [id number] CELIO GARDNER PATIENT [place] FEP PREFERRED PROVIDER ORGANIZAT ION (PPO) BASIC SELF Aug 21, 2013 111 [id number] CELIO GARDNER PATIENT [place] FEDERAL PREFERRED PROVIDER ORGANIZAT ION (PPO) BASIC SELF Aug 21, 2013 111 [id number] [phone] CELIO GARDNER PATIENT [place] FEDERAL PREFERRED PROVIDER ORGANIZAT ION (PPO) STAND MAGDALENA FAMIL Y Aug 18, 2006 105 [id number] [phone] CELIO GARDNER PATIENT [employer] BCBS FEP MEDICARE SECONDARY (NO B EXC) FEHB BASIC MEDSE C Aug 21, 2013 111 [id number] [phone] CELIO GARDNER PATIENT [employer] BCBS FEP PREFERRED PROVIDER ORGANIZAT ION (PPO) FEP STAND MAG[place]ALENA Sep 23, 2006 [id number] CELIO GARDNER PATIENT [place] FEP ([id number]) PRESCRIPT ION FEP RX Aug 21, 2013 [id number] [phone] GARDNER, CELIO PATIENT [employer] FEP [id number] PRESCRIPT ION FEPRX Aug 21, 2013 [id number] [phone] CELIO GARDNER [employer] FEP BCBS PRESCRIPT ION CAREM ARK FEPRX Aug 21, 2013 [id number] CELIO JAMESON [employer] FEP RX [id number] PRESCRIPT ION [id number] Aug 21, 2013 [id number] CELIO GARDNER [employer]-F EP BCBS PRESCRIPT ION FEP Aug 21, 2013 [id number] CELIO GARDNER MEDICARE ([facility] MEDICARE () PART B Nov 16, 2021 PART B [id number] [phone] CELIO GARDNER PATIENT MEDICARE ([facility] MEDICARE (M) PART A Nov 16, 2021 PART A [id number] [phone] CELIO GARDNER PATIENT MEDICARE ([facility] MEDICARE (M) PART B Nov 16, 2021 PART B [id number] [phone] CELIO GARDNER PATIENT MEDICARE ([facility] MEDICARE (M) PART A Nov 16, 2021 PART A [id number] CELIO GARDNER PATIENT MEDICARE ([facility] MEDICARE (M) PART B Nov 16, 2021 PART B [id number] CELIO GARDNER PATIENT MEDICARE ([facility] MEDICARE (M) PART A Nov 16, 2021 PART A [id number] CELIO GARDNER PATIENT MEDICARE ([facility] MEDICARE ) PART B Nov 16, 2021 PART B [id number] CELIO GARDNER PATIENT MEDICARE ([facility] MEDICARE ) PART A Nov 16, 2021 PART A [id number] CELIO GARDNER PATIENT MEDICARE ([facility] MEDICARE (M) PART B Nov 16, 2021 PART B [id number] CELIO GARDNER PATIENT MEDICARE (WNR) MEDICARE (M) PART A Nov 16, 2021 PART A [id number] [phone] CELIO GARDNER PATIENT MEDICARE (WNR) MEDICARE (M) PART A Nov 16, 2021 PART A [id number] [phone] CELIO GARDNER PATIENT MEDICARE (WNR) MEDICARE (M) PART B Nov 16, 2021 PART B [id number] [phone] CELIO GARDNER PATIENT MEDICARE PART D (WNR) MEDICARE (M) PART D Aug 18, 2023 PART D [id number] [phone] CELIO GARDNER PATIENT Selected Encounter This section includes the information on record at [place] for the Encounter. Date/Time Encounter Type Encounter Description Reason Provider Source Aug 08, 2025 03:33 PM PH1 ASSMT&MGMT NQHP 11-20 TELEPHONE [facility] ICD-10-CM Z71.9 Counseling, unspecified EWA HASKINS Alcides Encounter Template Text not used by [place] Assessments - Encounter Diagnoses This section includes the primary and secondary diagnoses documented for the Encounter. Date/Time Primary/Secondary Diagnosis Diagnosis Name Provider Source Aug 08, 2025 03:33 PM PRIMARY Counseling, unspecified [facility]INS [facility] Aug 08, 2025 03:33 PM SECONDARY Persons encountering health services in oth circumstances [facility] Plan of Treatment: Future Appointments (+ [...] Appointment Type Appointme nt Facility Name Aug 23, 2025 03:30 PM AMBULATORY - PSYCHIATRY [facility] December 27, 2025 02:00 PM AMBULATORY - MEDICINE [facility] Active, Pending, and Scheduled Orders This section includes a listing of several types of active, pending, and scheduled orders, including clinic medications orders, diagnostic test orders, procedure orders and consult orders; where the start date of the order is 45 days before the date of the Encounter or 45 days after the date of theEncounter. The data comes from all [place] treatment facilities. Test Date/Time Test Type Test Details Facility Name Jul 06, 2025 03:42 PM Consult Order [facility]-CARDIOLOGY Cons Business Economist[employer] [facility] [place] Lab Results: +/- 30 days of the encounter This section includes the Chemistry and Hematology Lab Results on record with [place] for the patient. Radiology Reports and Pathology Reports are provided separately, in subsequent sections. Lab Results This section contains the Chemistry/Hematology Results that were resulted 30 days before or 30 daysafter the date of the Encounter. Date/Time Source Result Type Result - Unit Interpretation Reference Range Specimen Type Comment Jul 22, 2025 10:16 AM [facility] MICROALBUMIN CREATININE RATIO PANEL URINE Spe cimen Type: URINE No comment entered. Ordering Provider: HUMBERTO VELAZQUEZ Report Released Date/Time: Apr 12, 2025 03:48 PM Reporting Lab: [facility] [address] [facility] [id number] Performing Lab: [address] [address] MICROALBUMIN/CREATININE RATIO 9.4 mg/g 0 -29.9 MICROALBUMIN,QUANTITATIVE 1.9 mg/dL RR U NAVAIL CREATININE URINE 202.90 mg/dL H 63-166 Social History: Smoking Status (Most current) and Tobacco Use (All prior to encounter date) This section includes the most current, and the historical, smoking and tobacco- related health factors from the [place] facility where the Encounter took place. Current Smoking Status This section includes the most current smoking, or tobacco-related health factor, from the [place] facility where the Encounter took place. Date/Time Current Smoking Status Comment Facil ity Sep 17, 2021 11:00 AM [place]-TOBACCO QUIT 15 YRS OR MORE [facility] Tobacco Use History This section includes a history of the smoking, or tobacco-related health factors, that were collected on or before the date of the Encounter. The data comes from the [place] facility where the Encounter took place. Date/Time Smoking Status/Tobac co Use Comment Facility Sep 17, 2021 11:00 AM [place]-TO[place] 15 YRS [place] MORE [facility] [facility] Mar 01, 2020 01:30 PM VA-TOBACCO FORMER USER [place] [facility] Mar 01, 2020 01:30 PM VA-TOBACCO QUIT 15 YRS OR MORE [place] [facility] Jan 20, 2019 09:37 AM VA-TOBACCO NEVER USED [place] [facility] Dec 11, 2017 05:17 PM QUIT [facility]BAC[facility] Jan 20, 2017 03:12 PM QUIT TOBACCO USE > 7 YEARS AGO [place] [facility] January 09, 2016 08:48 AM QUIT TOBACCO USE > 7 YEARS AGO . [place] [facility] [place] [facility] Jun 09, 2006 05:45 PM LIFETIME NON-TOBACCO USER [facility] Aug 22, 2003 03:27 PM HISTORY OF SMOKING [facility] Aug 22, 2003 03:27 PM QUIT TOBACCO USE IN PAST [facility] Jun 24, 2003 12:01 PM CURRENT SMOKER about 1 week/so [facility] Advance Directives: All historical and current [...] DIRECTIVE LATONYA EWING [place] [facility] Sep 19, 2021 GOALS & PREFERENCES TO INFORM LIFE-SUSTAINING TREATMENT PLAN [facility]ARY VIVAS [place] [facility] Sep 19, 2020 ADVANCE DIRECTIVE ALANA MONIQUE [facility] Encounter Notes: All associated encounter notes This section contains the clinical notes associated to the Encounter. Date/Time Encounter Note(s) Provider Source Aug 08, 2025 03:33 PM [facility] NOTE: LOCAL TITLE: [facility] TELEPHONE NOTE STANDARD TITLE: [facility] NOTE DATE OF NOTE: AUG 08, 2025@15:33 ENTRY DATE: AUG 08, 2025@15:33:29 AUTHOR: EWA HASKINS EXP COSIGNER: URGENCY: STATUS: COMPLETED Duration of call: 15min TC from Dennise Gamble. present on phone. continues to be at [facility] . Dennise reports still on Unsure of DC date. Dennise was inquiring about options. If goes home what time of services would he be eligible for. Discussed with Dennise that she should contact [facility] CaseMgt team to discuss options. If is eligible to go per PT and MD recc [facility] would than have to order VNA services for skilled care and PT, OT. Discussed freq usually 1-2 x a week for PT if that and there may be a lag of services to start upon dc from hosp. Other [place] should be open to inpt rehab services if eligible, Dennise verbalizes understanding and to speak with MD and Dc category planner w [place]. Continue to follow. /erasto/ Ewa DOHERTY [facility] candles pourer Signed: 08/08/2025 15:37 Receipt Acknowledged By: 08/08/2025 15:58 /erasto/ IVAN VELAZQUEZ RN,MSN,P[employer]ROUGH [employer]OOKER-C [facility] NURSE PRACTITIONER * AWAITING SIGNATURE * [facility]
--- OUTSIDE RECORDS SUMMARY | 2025-08-09 15:35 | XMS_ITS | Continuity of Care Document ---
Author Name [facility] Organization [facility] Care Team Providers Care Dna Analyst Name Role Phone [facility] Unavailable Unavailable Problems Combined list of problems from Department of Defense and Veterans Affairs facilities. It does not include entries that were removed or entered in error. Problem Status Onset Date Problem Type Date of Resolution Comments Source Sleep apnoea Active 013 Condition [facility] Anxiety Active Condition [facility] Benign prostatic hyperplasia (SNOMED CT 625045521) Active Condition [facility] Chronic low back pain (SNOMED CT 196992842) Active Condition [facility] Constipation Active Condition [facility] Coronary arteriosclerosis Active Condition Jul 06 5 Entered By: HUMBERTO VELAZQUEZ Comment: arterial calcifications noted on CT thorax 2018 [facility] Degeneration of cartilage AND/OR meniscus of knee Active Condition Mar 10 4 Entered By: KATIE RODRIGUEZ AM Comment: Left knee scope January,. 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 [facility] Lewy body dementia with behavioral disturbance Active Condition Jul 19, 2021 Entered By: KATIE LLAMAS Comment: reviewedSep 05, 2021 Entered By: KATIE LLAMAS Comment: 2023 Entered By: HUMBERTO VELAZQUEZ Comment: 10/31/23 brain imaging: decreased activity in bilateral basal ganglia. [facility] Lower urinary tract symptoms due to benign prostatic hypertrophy Active Condition [facility] Macular scar Active Condition [facility] Malignant melanoma of lower limb Active Condition Oct 22, 2021 Entered By: MAYR VIVAS Comment: s/p complete excision 05/07. comprehensive derm vist 06/06. Dr. Whitfield - [facility] Microscopic hematuria Active Condition [facility] Neurocognitive disorder Active Condition Jul 31, 2020 Entered By: ANDREW PEREZ Comment: major neurocognitive disorder due to [facility] Entered By: KATIE LLAMAS Comment: reviewedSep 05, 2021 Entered By: KATIE LLAMAS Comment: Reviewed [facility] OA - Osteoarthritis of knee Active Condition Jul 26, 2019 Entered By: KATIE RODRIGUEZ AM Comment: right total knee June,. 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 Osman Ma [facility] Tendonitis, Achilles Active Condition [facility] Depression (SNOMED CT 28042947) Inactive Condition 09/05/2021 Jul 12, 2008 Entered By: RACHELLE KISER Comment: [email or web address] Entered By: RACHELLE KISER Comment: updateJun 08, 2020 Entered By: [facility]IE [facility] Entered By: KATIE LLAMAS Comment: [facility] Drusen Inactive Condition 09/11/2009 [facility] Lipomas * (ICD-9-CM 214.9/214.0) Inactive Condition 09/11/2009 [facility] Mild cognitive disorder Inactive Condition 10/25/2020 Jun 08, 2020 Entered By: KATIE LLAMAS Comment: neuropsych pending [facility] Rhinitis Inactive Condition 09/11/2009 [facility] Severe protein-calorie malnutrition ([place]: less than 60% of standard weight) Inactive Condition 09/11/2021 [facility] Diagnosis: ICD-10-CM Z71.9 Counseling, unspecified Active Diagnosis [facility] Diagnosis: ICD-10-CM Z76.89 Persons encountering health services in oth circumstances Active Diagnosis [facility] Diagnosis: ICD-10-CM R68.89 Other general symptoms and signs Active Diagnosis [facility] Diagnosis: ICD-10-CM R94.31 Abnormal electrocardiogram [ECG] [EKG] Active Diagnosis [facility] Diagnosis: ICD-10-CM I27.20 Pulmonary hypertension, unspecified Active Diagnosis [facility] Diagnosis: ICD-10-CM I25.10 Athscl heart disease of upper [place] coronary artery w/o ang pctrs Active Diagnosis [facility] Diagnosis: ICD-10-CM Z13.6 Encounter for screening for cardiovascular disorders Active Diagnosis [facility] Diagnosis: ICD-10-CM F33.3 Major depressv disorder, recurrent, severe w psych symptoms Active Diagnosis [facility] D Diagnosis: ICD-10-CM R06.02 Shortness of breath Active Diagnosis [place] Diagnosis: ICD-10-CM Z79.899 Other long term care social worker (current) drug therapy Active Diagnosis [facility] Diagnosis: ICD-10-CM R54 Age-related physical debility Active Diagnosis [facility] Diagnosis: ICD-10-CM Z00.01 Encounter for general adult medical exam w abnormal findings Active Diagnosis [facility] Diagnosis: ICD-10-CM I10 Essential (primary) hypertension Active Diagnosis [facility] Diagnosis: ICD-10-CM R26.9 Unspecified abnormalities of gait and mobility Active Diagnosis [facility] Diagnosis: ICD-10-CM Z65.9 Problem related to unspecified psychosocial circumstances Active Diagnosis [facility] Diagnosis: ICD-10-CM G31.83 Neurocognitive disorder with Lewy bodies Active Diagnosis [facility] Diagnosis: ICD-10-CM 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 Medication Details Route Status Indication(s) Patie nt Instructions Prescription Expires Prescription Number Last Dispense Date Ordering Provider Order Date Order Qty Source ASPIRIN 81MG TAB,EC TAKE ONE TABLET BY MOUTH ONCE DAILY TO PREVENT STROKE/H EART ATTACK ORAL ACTIVE 04/13/2026 [id number] ECTOR HOYOS 2024 120 [facility] ASPIRIN 81MG TAB,EC TAKE ONE TABLET BY MOUTH ONCE DAILY TO PREVENT STROKE/H EART ATTACK ORAL DISCONT INUED 04/02/2025 [id number] 5 [place] 2023 120 [facility] BUSPIRONE HCL 5MG TAB TAKE ONE-HALF TABLET BY MOUTH TWICE DAILY FOR ANXIETY ORAL DISCONT INUED BY PROVIDE R 06/23/2025 [id number] Mike LLAMAS 2023 30 [place] CARBIDOPA 25MG/LEVODO PA 100MG TAB TAKE 1 TABLET BY MOUTH TWICE DAILY FOR 3 DAYS, THEN TAKE 1 TABLET THREE TIMES A DAY ORAL DISCONT INUED 08/17/2025 [id number] 5 EL-SAMIR SY,MIRRET 2024 270 [facility] CARBIDOPA 25MG/LEVODO PA 100MG TAB TAKE 1 TABLET BY MOUTH TWICE DAILY FOR 3 DAYS, THEN TAKE 1 TABLET THREE TIMES A DAY TOLERATE D ORAL DISCONT INUED 04/06/2025 [id number] 5 EL-SAMIR SY,MIRRET 2024 267 [place] CLONAZEPAM 0.5MG TAB TAKE ONE-HALF TABLET BY MOUTH FOUR TIMES DAILY NEEDED ANXIETY ORAL ACTIVE 11/24/2025 [id number] 5 Mike LLAMAS 2024 60 [place] CLONAZEPAM 0.5MG TAB TAKE ONE-HALF TABLET BY MOUTH FOUR TIMES DAILY NEEDED ANXIETY ORAL DISCONT INUED 07/14/2025 [id number] 5 Mike LLAMAS 2024 60 [place] CLONAZEPAM 0.5MG TAB TAKE ONE-HALF TABLET BY MOUTH FOUR TIMES A DAY MAY TAKE AN ADDITION AL ONE-HALF TABLET PER 24 HOURS NEEDED ORAL DISCONT INUED (EDIT) 01/20/2025 [id number] 5 Mike LLAMAS 2023 75 [place] CLONAZEPAM 0.5MG TAB TAKE ONE-HALF TABLET BY MOUTH FOUR TIMES DAILY NEEDED ORAL DISCONT INUED (EDIT) 11/18/2024 [id number] 4 Mike LLAMAS 2023 60 [place] CLONAZEPAM 0.5MG TAB TAKE ONE-HALF TABLET BY MOUTH FOUR TIMES DAILY NEEDED FOR ANXIETY ORAL DISCONT INUED BY PROVIDE R 05/28/2024 [id number] Mike LLAMAS 2023 14 [place] DICLOFENAC NA 1% GEL,TOP APPLY 4 GRAMS TOPICALL Y FOUR TIMES DAILY NEEDED FOR OSTEOART HRITIS - USE DOSING CARD PROVIDED IN BOX TOPICA L ACTIVE 06/01/2026 [id number] 5 [place] [address] 100 [facility] DICLOFENAC NA 1% GEL,TOP APPLY 4 GRAMS TOPICALL Y FOUR TIMES DAILY NEEDED FOR OSTEOART HRITIS - USE DOSING CARD PROVIDED IN BOX TOPICA L DISCONT INUED 04/30/2025 [id number] ECTOR [place]YOS [place] 2023 100 [facility] DOCUSATE NA 100MG CAP TAKE TWO CAPSULES BY MOUTH AT BEDTIME NEEDED FOR CONSTIPA TION TO SOFTEN STOOL ORAL ACTIVE 04/13/2026 [id number] [place] [address] 200 [facility] DOCUSATE NA 100MG CAP TAKE THREE CAPSULES BY MOUTH AT BEDTIME NEEDED FOR CONSTIPA TION TO SOFTEN STOOL ORAL DISCONT INUED BY PROVIDE R 04/02/2025 [id number] [place] 2023 300 [facility] DULOXETINE HCL 20MG CAP,EC TAKE ONE CAPSULE BY MOUTH ONCE DAILY DEPRESSI ON/ANXIE TY ORAL DISCONT INUED BY PROVIDE R 12/01/2025 [id number] 5 Mike LLAMAS 2024 30 [place] DULOXETINE HCL 20MG CAP,EC TAKE TWO CAPSULES BY MOUTH ONCE DAILY DEPRESSI ON/ANXIE TY ORAL DISCONT INUED (EDIT) 11/03/2025 [id number] 5 Mike LLAMAS 2024 60 [place] DULOXETINE HCL 20MG CAP,EC TAKE ONE CAPSULE BY MOUTH ONCE DAILY DEPRESSI ON/ANXIE TY ORAL DISCONT INUED (EDIT) 10/06/2025 [id number] Mike LLAMAS 2024 30 [place] ESCITALOPRA M OXALATE 10MG TAB TAKE ONE TABLET BY MOUTH ONCE DAILY FOR MOOD/DEP RESSION ### ORAL DISCONT INUED (EDIT) 05/25/2026 [id number] 5 Mike LLAMAS 2024 60 [place] ESCITALOPRA M OXALATE 5MG TAB TAKE ONE AND ONE-HALF TABLETS BY MOUTH ONCE DAILY FOR MOOD/DEP RESSION ### ORAL DISCONT INUED (EDIT) 02/16/2026 [id number] Mike LLAMAS 2024 90 [place] ESCITALOPRA M OXALATE 5MG TAB TAKE ONE TABLET BY MOUTH ONCE DAILY FOR MOOD/DEP RESSION ORAL DISCONT INUED (EDIT) 01/12/2026 [id number] 5 Mike LLAMAS 2024 60 [place] ESCITALOPRA M OXALATE 5MG TAB TAKE ONE-HALF TABLET BY MOUTH ONCE DAILY FOR MOOD/DEP RESSION ORAL DISCONT INUED (EDIT) 12/31/2025 [id number] 5 Mike LLAMAS 2024 15 [place] ESCITALOPRA M OXALATE 5MG TAB TAKE ONE-HALF TABLET BY MOUTH ONCE DAILY FOR MOOD/DEP RESSION ORAL DISCONT INUED BY PROVIDE R 10/06/2025 [id number] 5 Mike LLAMAS 2024 15 [place] ESCITALOPRA M OXALATE 5MG TAB TAKE ONE TABLET BY MOUTH ONCE DAILY FOR MOOD/DEP RESSION ORAL DISCONT INUED (EDIT) 09/28/2025 [id number] 5 Mike LLAMAS 2024 30 [place] ESCITALOPRA M OXALATE 5MG TAB TAKE ONE TABLET BY MOUTH ONCE DAILY FOR MOOD/DEP RESSION ORAL DISCONT INUED 03/19/2025 [id number] Mike LLAMAS 2023 30 [place] MELATONIN 5MG CAP/TAB TAKE TWO CAPSULE/ TABLET BY MOUTH AT BEDTIME NEEDED FOR INSOMNIA ORAL ACTIVE 06/01/2026 [id number] 5 DIONTE-GR GUANAKITO,CYNTH [place] [address]24 180 [facility] MELATONIN 5MG CAP/TAB TAKE TWO CAPSULE/ TABLET BY MOUTH AT BEDTIME NEEDED FOR INSOMNIA ORAL DISCONT INUED 09/01/2025 [id number] Mike LLAMAS G 2024 180 [facility] IELD MELATONIN 5MG CAP/TAB TAKE TWO CAPSULE/ TABLET BY MOUTH AT BEDTIME NEEDED FOR INSOMNIA ORAL DISCONT INUED 03/19/2025 [id number] Mike LLAMAS 2023 60 [facility] IELD MEMANTINE HCL 10MG TAB TAKE ONE TABLET BY MOUTH TWICE DAILY ### ORAL ACTIVE 02/16/2026 [id number] 5 Mike LLAMAS 2024 60 [facility] IELD MEMANTINE HCL 10MG TAB TAKE ONE TABLET BY MOUTH TWICE DAILY DEMENTIA ORAL DISCONT INUED 09/01/2025 [id number] 5 Mike LLAMAS 2024 60 [facility] IELD MEMANTINE HCL 10MG TAB TAKE ONE TABLET BY MOUTH TWICE DAILY DEMENTIA ORAL DISCONT INUED 03/19/2025 [id number] Mike LLAMAS 2023 60 [facility] IELD METOPROLOL SUCCINATE 100MG TAB,SA TAKE ONE TABLET BY MOUTH ONCE DAILY FOR BLOOD PRESSURE /HEART ORAL SUSPEND ED 11/24/2025 [id number] 6 DIONTE-GR GUANAKITO,CYNTH [place] 2024 90 [facility] METOPROLOL SUCCINATE 100MG TAB,SA TAKE ONE TABLET BY MOUTH ONCE DAILY FOR BLOOD PRESSURE /HEART ORAL DISCONT INUED 04/02/2025 [id number] 5 DIONTE-GR GUANAKITO,CYNTH [place] 2023 90 [facility] MIRTAZAPINE 7.5MG TAB TAKE ONE HALF TABLET BY MOUTH AT BEDTIME FOR DEPRESSI ON/MOOD ORAL ACTIVE 07/11/2026 [id number] Mike LLAMAS 2024 15 [place] MULTIVIT/OP HTH AREDS2/LUTE IN/ZEAXANTH IN CAP/TAB TAKE 1 CAPSULE BY MOUTH TWICE DAILY FOR VITAMIN SUPPLEME NTATION IN THE MORNING AND EVENING, WITH FOOD ORAL SUSPEND ED 12/31/2025 [id number] 6 ECTOR HOYOS [place] 2024 120 [place] MULTIVIT/OP HTH AREDS2/LUTE IN/ZEAXANTH IN CAP/TAB TAKE 1 CAPSULE BY MOUTH TWICE DAILY FOR VITAMIN SUPPLEME NTATION IN THE MORNING AND EVENING, WITH FOOD ORAL DISCONT INUED 04/02/2025 [id number] ECTOR HOYOS 2023 120 [facility] POLYETHYLEN E GLYCOL 3350 PWDR,ORAL TAKE 17 GRAMS(FI LL CAP TO 17GM LINE) BY MOUTH ONCE DAILY NEEDED FOR CONSTIPA TION [MIX WITH 4 TO 8OZ. OF B[place] ] ORAL ACTIVE 06/28/2026 [id number] 5 [facility] POLYETHYLEN E GLYCOL 3350 PWDR,ORAL TAKE 17 GRAMS(FI LL CAP TO 17GM LINE) BY MOUTH ONCE DAILY NEEDED FOR CONSTIPA TION [MIX WITH 4 TO 8OZ. OF BEVERAGE ] ORAL DISCONT INUED 10/01/2025 [id number] 5 [facility] 238 [facility] POLYETHYLEN E GLYCOL 3350 PWDR,ORAL TAKE 17 GRAMS(FI LL CAP TO 17GM LINE) BY MOUTH ONCE DAILY NEEDED FOR CONSTIPA TION [MIX WITH 4 TO 8OZ. OF [place] ] ORAL DISCONT INUED 04/30/2025 [id number] [facility] 238 [facility] QUETIAPINE FUMARATE 25MG TAB TAKE ONE-HALF TABLET BY MOUTH FOUR TIMES DAILY NEEDED ### ORAL HOLD 05/25/2026 [id number] Mike LLAMAS 2024 60 [place] QUETIAPINE FUMARATE 25MG TAB TAKE ONE-HALF TABLET BY MOUTH ONCE DAILY AND TAKE ONE TABLET AT BEDTIME ### ORAL DISCONT INUED (EDIT) 02/16/2026 [id number] Mike LLAMAS 2024 45 [place] QUETIAPINE FUMARATE 25MG TAB TAKE ONE-HALF TABLET BY MOUTH ONCE DAILY AND TAKE ONE AND ONE-HALF TABLETS AT BEDTIME MOOD ORAL DISCONT INUED (EDIT) 01/12/2026 [id number] Mike LLAMAS 2024 60 [place] QUETIAPINE FUMARATE 25MG TAB TAKE ONE TABLET BY MOUTH EVERY MORNING AND TAKE ONE TABLET MID-DAY AND TAKE TWO TABLETS AT BEDTIME MOOD/ANX IETY ORAL DISCONT INUED (EDIT) 12/16/2025 [id number] Mike LLAMAS 2024 120 [place] QUETIAPINE FUMARATE 25MG TAB TAKE ONE-HALF TABLET BY MOUTH ONCE DAILY AND TAKE TWO TABLETS AT BEDTIME FOR MOOD ORAL DISCONT INUED (EDIT) 10/06/2025 [id number] Mike LLAMAS 2024 75 [place] QUETIAPINE FUMARATE 25MG TAB TAKE ONE-HALF TABLET BY MOUTH TWICE DAILY AND TAKE TWO AND ONE-HALF TABLETS AT BEDTIME FOR MOOD ORAL DISCONT INUED (EDIT) 07/21/2025 [id number] 5 Mike LLAMAS 2023 105 [place] QUETIAPINE FUMARATE 25MG TAB TAKE ONE-HALF TABLET BY MOUTH TWICE DAILY AND TAKE THREE TABLETS AT BEDTIME FOR MOOD ORAL DISCONT INUED (EDIT) 06/23/2025 [id number] Mike LLAMAS 2023 120 [place] QUETIAPINE FUMARATE 25MG TAB TAKE ONE-HALF TABLET BY MOUTH TWICE DAILY AND TAKE THREE AND ONE-HALF TABLETS AT BEDTIME FOR MOOD ORAL DISCONT INUED (EDIT) 05/19/2025 [id number] Mike LLAMAS 2023 135 [place] RIVASTIGMIN E TARTRATE 3MG CAP TAKE ONE CAPSULE BY MOUTH TWICE DAILY FOR DEMENTIA ### ORAL ACTIVE 02/16/2026 [id number] 5 Mike LLAMAS 2024 60 [place] RIVASTIGMIN E TARTRATE 3MG CAP TAKE ONE CAPSULE BY MOUTH TWICE DAILY FOR DEMENTIA ORAL DISCONT INUED 09/28/2025 [id number] Mike LLAMAS 2024 60 [place] RIVASTIGMIN E TARTRATE 3MG CAP TAKE ONE CAPSULE BY MOUTH TWICE DAILY FOR DEMENTIA ORAL DISCONT INUED 03/19/2025 [id number] Mike LLAMAS [place] 2023 60 [place] SIMVASTATIN 40MG TAB TAKE ONE TABLET BY MOUTH AT BEDTIME FOR CHOLESTE ROL ORAL SUSPEND ED 12/22/2025 [id number] 6 MADDIE CALABRESE,CYN [place] 2024 90 [facility] SIMVASTATIN 40MG TAB TAKE ONE TABLET BY MOUTH AT BEDTIME FOR CHOLESTE ROL ORAL DISCONT INUED 04/02/2025 [id number] MADDIE CALABRESE,DAVID [place] 2023 90 [facility] TAMSULOSIN HCL 0.4MG CAP TAKE TWO CAPSULES BY MOUTH AT BEDTIME FOR ENLARGED PROSTATE ORAL SUSPEND ED 04/13/2026 [id number] 6 MADDIE CALABRESE,CYNTH [place] [address] 180 [facility] TAMSULOSIN HCL 0.4MG CAP TAKE TWO CAPSULES BY MOUTH AT BEDTIME FOR ENLARGED PROSTATE ORAL DISCONT INUED 06/18/2025 [id number] MADDIE CALABRESE,CYN [place] 2023 180 [facility] TRAZODONE HCL 100MG TAB TAKE TWO TABLETS BY MOUTH AT BEDTIME NEEDED FOR INSOMNIA ASSOCIAT ED WITH DEPRESSI ON ### ORAL ACTIVE 02/16/2026 [id number] Mike LLAMAS 2024 60 [place] TRAZODONE HCL 100MG TAB TAKE TWO TABLETS BY MOUTH AT BEDTIME NEEDED FOR INSOMNIA ASSOCIAT ED WITH DEPRESSI ON ORAL DISCONT INUED 09/01/2025 [id number] Mike LLAMAS 2024 60 [place] TRAZODONE HCL 100MG TAB TAKE TWO TABLETS BY MOUTH AT BEDTIME NEEDED FOR INSOMNIA ASSOCIAT ED WITH DEPRESSI ON ORAL DISCONT INUED 03/19/2025 [id number] Mike LLAMAS 2023 60 [place] Allergies, Adverse Reactions, Alerts Combined list of allergies from Department of Defense and Veterans Affairs facilities. It does not include entries that were removed or entered in error. Substance Category Reaction Severity Reaction type Status Date Reported Comments Source PRAZOSIN Propensity to adverse reactions to drug (finding) Nightmares active 3 [facility] Immunizations Combined list of available immunizations from the Department of Defense and Veterans Affairs facilities. Immunization Series Date Given Administered By Site Reaction Lot Number CVX Code Drug School Health Assistant Status Comments Source INFLUENZA, ADJUVANTED, TRIVALENT, PF 2024 EWA HASKINS RIGHT DELTO ID [id number] 168 complet ed [facility] COVID-19 (MODERNA), MRNA, LNP-S, PF, 50 MCG/0.5 ML (AGES 12+ YEARS) 2023 NURIS KURTZ LEFT DELTO ID [id number] 312 complet ed [facility] INFLUENZA, HIGH-DOSE, TRIVALENT, PF 2023 MINDA KURTZRIELA RIGHT DELTO ID [id number] A 135 complet ed [facility] COVID-19 (MODERNA), MRNA, LNP-S, PF, 50 MCG/0.5 ML (AGES 12+ YEARS) 1 2023 NAHOMY SULLIVAN LEFT DELTO ID [id number] 312 complet ed [facility] IELD INFLUENZA, HIGH-DOSE, QUADRIVALENT 2023 NAHOMY SULLIVAN RIGHT DELTO ID [id number] 197 complet ed [facility] IELD INFLUENZA VACCINE, QUADRIVALENT, ADJUVANTED 2021 205 complet ed [facility] COVID-19 (MODERNA), MRNA, LNP-S, PF, 100 MCG/0.5ML DOSE OR 50 MCG/0.25ML DOSE 3 2021 207 complet ed [facility] INFLUENZA, INJECTABLE, QUADRIVALENT, PRESERVATIVE FREE 2020 150 complet ed [facility] IELD COVID-19 (MODERNA), MRNA, LNP-S, PF, 100 MCG/0.5 ML DOSE 2 2020 207 complet ed MOD; [id number]; 1 [facility] COVID-19 (MODERNA), MRNA, LNP-S, PF, 100 MCG/0.5 ML DOSE 1 2020 207 complet ed MOD; [id number]; 1 [facility] PNEUMOCOCCAL POLYSACCHARID E PPV23 2019 33 complet ed [facility] INFLUENZA, UNSPECIFIED FORMULATION 2019 88 complet ed [facility] INFLUENZA, INJECTABLE, QUADRIVALENT, PRESERVATIVE FREE 2018 150 complet ed Site: Left Deltoid [facility] INFLUENZA, SEASONAL, INJECTABLE 2017 141 complet ed [facility] ZOSTER RECOMBINANT 2 2017 187 complet ed outside documenta tion records [facility] ZOSTER RECOMBINANT 1 2017 187 complet ed outside immunizat ion records [facility] FLU,3 YRS (HISTORICAL) 2016 88 complet ed Site: Left Deltoid [facility] TD (ADULT), 2 LF TETANUS TOXOID, PRESERVATIVE FREE, ADSORBED 2016 09 complet ed Site: Right Deltoid [facility] ZOSTER (HISTORICAL) 2015 121 complet ed Outside PCP [facility] FLU,3 YRS (HISTORICAL) 2015 88 complet ed Outside PCP [facility] FLU,3 YRS (HISTORICAL) 2014 88 complet ed [facility] FLU,3 YRS (HISTORICAL) 2013 88 complet ed [facility] INFLUENZA, UNSPECIFIED FORMULATION 2012 88 complet ed [place] FLU,3 YRS (HISTORICAL) 2012 88 complet ed [facility] FLU,3 YRS (HISTORICAL) 2011 88 complet ed [facility] FLU,3 YRS (HISTORICAL) 2010 88 complet ed [facility] NOVEL INFLUENZA-H1N 1-09, ALL FORMULATIONS 2008 128 complet ed [facility] FLU,3 YRS (HISTORICAL) 2008 88 complet ed Site: Left Deltoid [facility] PNEUMOCOCCAL, UNSPECIFIED FORMULATION 2008 109 complet ed Site: Right Deltoid [facility] FLU,3 YRS (HISTORICAL) 2007 88 complet ed Site: Right Deltoid [facility] INFLUENZA, UNSPECIFIED FORMULATION 2006 TRESA MURRAY 88 complet ed [facility] FLU,3 YRS (HISTORICAL) 2006 88 complet ed [facility] TDAP 2006 115 complet ed [facility] FLU,3 YRS (HISTORICAL) 2004 NICCI MCMAHON 88 comple t ed [facility] FLU,3 YRS (HISTORICAL) 2003 GAVINO PALENCIA 88 complet ed [facility] FLU,3 YRS (HISTORICAL) 2002 NICCI MCMAHON 88 comple t ed [facility] FLU,3 YRS (HISTORICAL) 2000 GLENDA TYLER 88 complet ed [facility] FLU,3 YRS (HISTORICAL) 1999 NICCI MCMAHON 88 comple t ed [facility] FLU,3 YRS (HISTORICAL) 1998 REGINA MORA 89 complet ed [facility] INFLUENZA, UNSPECIFIED FORMULATION 1997 GAVINO PALENCIA 88 complet ed [facility] INFLUENZA, UNSPECIFIED FORMULATION 1996 KAI LARIOS 88 complet ed [facility] INFLUENZA, UNSPECIFIED FORMULATION 1995 GAVINO PALENCIA 88 complet ed [facility] Results Combined list of recent chemistry, hematology and other laboratory results from [facility] of Defense and [facility], ranging from 15 months to all on record, depending upon the facility. Order Name Results Value Reference Range Date Interpretation Specimen Comments Source MICROALBU MIN CREATININ E RATIO PANEL MICROALBUMI N/CREATININ E [MASS RATIO] IN URINE 9.4 mg/g 0 - 29.9 07/22 Specimen Type: URINE No comment entered. Ordering Provider: IVAN GIBSON Report Released Date/Time: Apr 12, 2025 03:48 PM Reporting Lab: [facility] [address] [id number] Performing Lab[facility] [place] [facility] [address] [id number] [facility] MICROALBU MIN CREATININ E RATIO PANEL MICROALBUMI N [MASS/VOLUM E] IN URINE BY DETECTION LIMIT <= 1.0 MG/L 1.9 mg/dL 07/22 Specimen Type: URINE No comment entered. Ordering Provider: IVAN GIBSON Report Released Date/Time: Apr 12, 2025 03:48 PM Reporting Lab: [facility] [place] [facility] [address] [address] Performing Lab: [facility] [address] [address] [facility] [place] [facility] MICROALBU MIN CREATININ E RATIO PANEL CREATININE [MASS/VOLUM E] IN URINE 202.90 mg/dL 63 - 166 07/22 H Specimen Type: URINE No comment entered. Ordering Provider: IVAN GIBSON Report Released Date/Time: Apr 12, 2025 03:48 PM Reporting Lab: [facility]ITALUSEA.[facility] [address] [address] Performing Lab: [facility]ITALUSEA[facility] [address] [address] [facility]N [facility] HOSPITALUSE [facility] BASIC METABOLIC PANEL (non-fast ing) UREA NITROGEN [MASS/VOLUM E] IN SERUM OR PLASMA 21 mg/dL 8 - 07/05 Specimen Type: SERUM No comment entered. Ordering Provider: IVAN GIBSON Report Released Date/Time: Apr 12, 2025 03:48 PM Reporting Lab: [facility]ENTERTRN [facility]PITALUSEA.[facility] [address] [address] Performing Lab: [facility] [address] [address] [facility]N [facility] HOSPITALUSE [facility] BASIC METABOLIC PANEL (non-fast ing) GLUCOSE [MASS/VOLUM E] IN SERUM OR PLASMA 87 mg/dL 65 - 100 07/05 Specimen Type: SERUM No comment entered. Ordering Provider: IVAN GIBSON Report Released Date/Time: Apr 12, 2025 03:48 PM Reporting Lab: [facility] [place] [facility] [address] [address] Performing Lab: [facility] [address] [address] [facility] CENTERTRN [facility] HOSPITALUSE [facility] BASIC METABOLIC PANEL (non-fast ing) SODIUM [MOLES/VOLU ME] IN SERUM OR PLASMA 142 mmol/L 136 - 145 07/05 Specimen Type: SERUM No comment entered. Ordering Provider: IVAN GIBSON Report Released Date/Time: Apr 12, 2025 03:48 PM Reporting Lab: [facility] [address] [address] Performing Lab: [facility]ITALUSE[address] [address] [facility]ITALUSE [facility] BASIC METABOLIC PANEL (non-fast ing) POTASSIUM [MOLES/VOLU ME] IN SERUM OR PLASMA 4.5 mmol/L 3.5 - 5.1 07/05 Specimen Type: SERUM No comment entered. Ordering Provider: IVAN GIBSON Report Released Date/Time: Apr 12, 2025 03:48 PM Reporting Lab: [facility] CENTERTRN [facility] HOSPITALUSE[address] [address] Performing Lab: [facility]ITALUSE[address] [address] [facility]N [facility] HOSPITALUSE [facility] BASIC METABOLIC PANEL (non-fast ing) CHLORIDE [MOLES/VOLU ME] IN SERUM OR PLASMA 107 mmol/L 98 - 107 07/05 Specimen Type: SERUM No comment entered. Ordering Provider: IVAN GIBSON Report Released Date/Time: Apr 12, 2025 03:48 PM Reporting Lab: [facility]ITALUSE[address] [address] Performing Lab: [facility]ITALUSETS [address] [address] [facility]ERN VA HOSPITALUSE [facility] BASIC METABOLIC PANEL (non-fast ing) CARBON DIOXIDE, TOTAL [MOLES/VOLU ME] IN SERUM OR PLASMA 22 meq/L 23 - 31 07/05 L Specimen Type: SERUM No comment entered. Ordering Provider: IVAN GIBSON Report Released Date/Time: Apr 12, 2025 03:48 PM Reporting Lab: [facility] CENTERTRN [facility] HOSPITALUSE[address] [address] Performing Lab: [facility] [place] [place] [facility] [address] [address] [facility] BASIC METABOLIC PANEL (non-fast ing) CALCIUM [MASS/VOLUM E] IN SERUM OR PLASMA 8.6 mg/dL 8.8 - 10 07/05 L Specimen Type: SERUM No comment entered. Ordering Provider: IVAN GIBSON Report Released Date/Time: Apr 12, 2025 03:48 PM Reporting Lab: [address] [address] Performing Lab: [address] [address] [facility] BASIC METABOLIC PANEL (non-fast ing) CREATININE [MASS/VOLUM E] IN SERUM OR PLASMA 1.27 mg/dL 0.72 - 1.25 07/05 H Specimen Type: SERUM No comment entered. Ordering Provider: IVAN GIBSON Report Released Date/Time: Apr 12, 2025 03:48 PM Reporting Lab: [address] [address] Performing Lab: [address] [address] [facility] BASIC METABOLIC PANEL (non-fast ing) GLOMERULAR FILTRATION RATE [VOLUME RATE/AREA] IN SERUM, PLASMA OR BLOOD BY CREATININE- BASED FORMULA (CKD-EPI 2020)/1.73 SQ M 62 mL/min 60 07/05 Specimen Type: SERUM No comment entered. Ordering Provider: IVAN GIBSON Report Released Date/Time: Apr 12, 2025 03:48 PM Reporting Lab: [address] [address] Performing Lab: [address] [address] [facility] BASIC METABOLIC PANEL (non-fast ing) ANION GAP IN SERUM OR PLASMA BY CALCULATION 13 meq/L 6 - 16 07/05 Specimen Type: SERUM No comment entered. Ordering Provider: IVAN GIBSON Report Released Date/Time: Apr 12, 2025 03:48 PM Reporting Lab: [facility] [place] [facility] [address] [address] Performing Lab: [facility] [place] [facility] [address] [address] [facility] [place] [facility] CBC AND DIFF (AUTO) LEUKOCYTES [#/VOLUME] IN BLOOD BY AUTOMATED COUNT 7.70 10*3/u L 4.50 - 11.00 07/05 Specimen Type: BLOOD No comment entered. Ordering Provider: IVAN GIBSON Report Released Date/Time: Apr 12, 2025 03:48 PM Reporting Lab: [facility] [place] [facility] [address] [address] Performing Lab: [facility] [place] [facility] [address] [address] [facility] [place] [facility] CBC AND DIFF (AUTO) ERYTHROCYTE S [#/VOLUME] IN BLOOD BY AUTOMATED COUNT 5.64 10*6/u L 4.23 - 5.66 07/05 Specimen Type: BLOOD No comment entered. Ordering Provider: IVAN GIBSON Report Released Date/Time: Apr 12, 2025 03:48 PM Reporting Lab: [facility] [place] [facility] [address] [address] Performing Lab: [facility] [place] [facility] [address] [address] [facility] [place] CBC AND DIFF (AUTO) HEMOGLOBIN [MASS/VOLUM E] IN BLOOD 16.1 g/dL 12.8 - 17 07/05 Specimen Type: BLOOD No comment entered. Ordering Provider: IVAN GIBSON Report Released Date/Time: Apr 12, 2025 03:48 PM Reporting Lab: [facility] [place] [facility] [address] [address] Performing Lab: [facility] [place] [facility] [address] [address] [facility] [place] [facility] CBC AND DIFF (AUTO) HEMATOCRIT [VOLUME FRACTION] OF BLOOD BY AUTOMATED COUNT 47.8 39.2 - 50.4 07/05 Specimen Type: BLOOD No comment entered. Ordering Provider: IVAN GIBSON Report Released Date/Time: Apr 12, 2025 03:48 PM Reporting Lab: [facility] [place] [facility] [address] [address] Performing Lab: [facility] [place] [facility] [address] [address] [facility] [place] [facility] CBC AND DIFF (AUTO) MCV [ENTITIC MEAN VOLUME] IN RED BLOOD CELLS BY AUTOMATED COUNT 84.8 fL 82 - 99 07/05 Specimen Type: BLOOD No comment entered. Ordering Provider: IVAN GIBSON Report Released Date/Time: Apr 12, 2025 03:48 PM Reporting Lab: [facility] [place] [facility] [address] [address] Performing Lab: [place] [facility] [place] [facility] [address] [address] [facility] [place] [facility] CBC AND DIFF (AUTO) MCHC [ENTITIC MASS/VOLUME ] IN RED BLOOD CELLS BY AUTOMATED COUNT 33.7 g/dL 30.8 - 35.1 07/05 Specimen Type: BLOOD No comment entered. Ordering Provider: IVAN GIBSON Report Released Date/Time: Apr 12, 2025 03:48 PM Reporting Lab: [place] [facility] [place] [facility] [address] [address] Performing Lab: [facility] [place] [facility] [address] [address] [facility] [place] [facility] CBC AND DIFF (AUTO) PLATELETS [#/VOLUME] IN BLOOD BY AUTOMATED COUNT 171 10*3/u L 140 - 360 07/05 Specimen Type: BLOOD No comment entered. Ordering Provider: IVAN GIBSON Report Released Date/Time: Apr 12, 2025 03:48 PM Reporting Lab: [place] [facility] [place] [facility] [address] [address] Performing Lab: [facility] [place] [facility] [address] [address] [facility] [place] [facility] CBC AND DIFF (AUTO) PLATELET [ENTITIC MEAN VOLUME] IN BLOOD BY AUTOMATED COUNT 10.1 fL 9.2 - 12.4 07/05 Specimen Type: BLOOD No comment entered. Ordering Provider: IVAN GIBSON Report Released Date/Time: Apr 12, 2025 03:48 PM Reporting Lab: [facility] [place] [facility] [address] [address] Performing Lab: [facility]RP[facility] CENTERTRN [facility] HOSPITALUSEA.[facility] [address] [address] [facility]N [facility] CBC AND DIFF (AUTO) ERYTHROCYTE [DISTWIDTH] IN RED BLOOD CELLS BY AUTOMATED COUNT 13.6 12.0 - 16.0 07/05 Specimen Type: BLOOD No comment entered. Ordering Provider: IVAN GIBSON Report Released Date/Time: Apr 12, 2025 03:48 PM Reporting Lab: [facility]ENTERTRN [place] [facility] [address] [address] Performing Lab: [facility] CENTERTRN VA HOSPITALUSETS [facility] [address] [address] [facility] SERVICESN [facility] HOSPITALUSE [facility] CBC AND DIFF (AUTO) MONOCYTES [#/VOLUME] IN BLOOD BY AUTOMATED COUNT 0.61 10*3/u L 0.30 - 1.10 07/05 Specimen Type: BLOOD No comment entered. Ordering Provider: IVAN GIBSON Report Released Date/Time: Apr 12, 2025 03:48 PM Reporting Lab: [facility]ENTERTRN [place] [facility] [address] [address] Performing Lab: [facility]ENTERTRN [facility] HOSPITALUSETS [facility] [address] [address] [facility]N [facility] HOSPITALUSE [facility] CBC AND DIFF (AUTO) MCH [ENTITIC MASS] BY AUTOMATED COUNT 28.5 pg 26.2 - 32.6 07/05 Specimen Type: BLOOD No comment entered. Ordering Provider: IVAN GIBSON Report Released Date/Time: Apr 12, 2025 03:48 PM Reporting Lab: [facility] [place] [facility] [address] [address] Performing Lab: [facility] [facility] [address] [address] [facility] [place] [facility] CBC AND DIFF (AUTO) NEUTROPHILS /LEUKOCYTES IN BLOOD BY AUTOMATED COUNT 64.2 43.7 - 75.8 07/05 Specimen Type: BLOOD No comment entered. Ordering Provider: IVAN GIBSON Report Released Date/Time: Apr 12, 2025 03:48 PM Reporting Lab: [facility] [facility] [address] [address] Performing Lab: [facility] [place] [facility] [address] [address] [facility] [place] [facility] CBC AND DIFF (AUTO) LYMPHOCYTES /LEUKOCYTES IN BLOOD BY AUTOMATED COUNT 24.2 14.0 - 42.3 07/05 Specimen Type: BLOOD No comment entered. Ordering Provider: IVAN GIBSON Report Released Date/Time: Apr 12, 2025 03:48 PM Reporting Lab: [facility] [facility] [address] [address] Performing Lab: [facility] [facility] [address] [address] [facility] [place] [facility] CBC AND DIFF (AUTO) MONOCYTES/L EUKOCYTES IN BLOOD BY AUTOMATED COUNT 7.9 5.1 - 13.7 07/05 Specimen Type: BLOOD No comment entered. Ordering Provider: IVAN GIBSON Report Released Date/Time: Apr 12, 2025 03:48 PM Reporting Lab: [facility] [facility] [address] [address] Performing Lab: [facility] [facility] [address] [address] [facility] [place] [facility] CBC AND DIFF (AUTO) EOSINOPHILS /LEUKOCYTES IN BLOOD BY AUTOMATED COUNT 2.2 0.4 - 6.8 07/05 Specimen Type: BLOOD No comment entered. Ordering Provider: IVAN GIBSON Report Released Date/Time: Apr 12, 2025 03:48 PM Reporting Lab: [facility] [facility] [address] [address] Performing Lab: [facility] [place] [facility] [address] [address] [facility] [place] [facility] CBC AND DIFF (AUTO) BASOPHILS/L EUKOCYTES IN BLOOD BY AUTOMATED COUNT 0.6 0.1 - 2.0 07/05 Specimen Type: BLOOD No comment entered. Ordering Provider: IVAN GIBSON Report Released Date/Time: Apr 12, 2025 03:48 PM Reporting Lab: [facility] [place] [address] [address] Performing Lab: [facility] [place] [facility] [address] [address] [place] [facility] [place] [facility] CBC AND DIFF (AUTO) NEUTROPHILS [#/VOLUME] IN BLOOD BY AUTOMATED COUNT 4.94 10*3/u L 2.20 - 7.60 07/05 Specimen Type: BLOOD No comment entered. Ordering Provider: IVAN GIBSON Report Released Date/Time: Apr 12, 2025 03:48 PM Reporting Lab: [facility] [place] [facility] [address] [address] Performing Lab: [facility] [place] [facility] [address] [address] [facility] [place] [facility] CBC AND DIFF (AUTO) LYMPHOCYTES [#/VOLUME] IN BLOOD BY AUTOMATED COUNT 1.86 10*3/u L 1.00 - 3.20 07/05 Specimen Type: BLOOD No comment entered. Ordering Provider: IVAN GIBSON Report Released Date/Time: Apr 12, 2025 03:48 PM Reporting Lab: [facility] [place] [address] [address] Performing Lab[facility] [place] [facility] [address] [address] [place] [facility] [place] [facility] CBC AND DIFF (AUTO) EOSINOPHILS [#/VOLUME] IN BLOOD BY AUTOMATED COUNT 0.17 10*3/u L 0.03 - 0.44 07/05 Specimen Type: BLOOD No comment entered. Ordering Provider: IVAN GIBSON Report Released Date/Time: Apr 12, 2025 03:48 PM Reporting Lab: [facility] [place] [facility] [address] [address] Performing Lab: [facility] [place] [facility] [address] [address] [facility] [place] [facility] CBC AND DIFF (AUTO) BASOPHILS [#/VOLUME] IN BLOOD BY AUTOMATED COUNT 0.05 10*3/u L 0.01 - 0.13 07/05 Specimen Type: BLOOD No comment entered. Ordering Provider: IVAN GIBSON Report Released Date/Time: Apr 12, 2025 03:48 PM Reporting Lab: [place] [facility] [place] [facility] [address] [address] Performing Lab: [facility] [place] [facility] [address] [address] [facility] [place] [facility] CBC AND DIFF (AUTO) IMMATURE GRANULOCYTE S/LEUKOCYTE S IN BLOOD BY AUTOMATED COUNT 0.9 0.0 - 0.7 07/05 H Specimen Type: BLOOD No comment entered. Ordering Provider: IVAN GIBSON Report Released Date/Time: Apr 12, 2025 03:48 PM Reporting Lab: [facility] [place] [facility] [address] [address] Performing Lab: [facility] [place] [facility] [address] [address] [facility] [place] [facility] CBC AND DIFF (AUTO) IMMATURE GRANULOCYTE S [#/VOLUME] IN BLOOD BY AUTOMATED COUNT 0.07 10*3/u L 0.00 - 0.06 07/05 H Specimen Type: BLOOD No comment entered. Ordering Provider: IVAN GIBSON Report Released Date/Time: Apr 12, 2025 03:48 PM Reporting Lab: [facility] [place] [facility] [address] [address] Performing Lab: [facility] [place] [facility] [address] [address] [facility] [place] [facility] CBC AND DIFF (AUTO) NUCLEATED ERYTHROCYTE S/LEUKOCYTE S [RATIO] IN BLOOD BY AUTOMATED COUNT 0.0 0.0 - 0.0 07/05 Specimen Type: BLOOD No comment entered. Ordering Provider: IVAN GIBSON Report Released Date/Time: Apr 12, 2025 03:48 PM Reporting Lab: [facility] [place] [facility] [address] [address] Performing Lab: [place] [facility] [place] [facility] [address] [address] [facility] [place] [facility] CBC AND DIFF (AUTO) NUCLEATED ERYTHROCYTE S [#/VOLUME] IN BLOOD BY AUTOMATED COUNT 0.00 10*3/u L 0.00 - 0.00 07/05 Specimen Type: BLOOD No comment entered. Ordering Provider: IVAN GIBSON Report Released Date/Time: Apr 12, 2025 03:48 PM Reporting Lab: [facility] [place] [facility] [address] [address] Performing Lab: [place] [facility] [place] [facility] [address] [address] [facility] [place] [facility] FOLATE FOLATE [MASS/VOLUM E] IN SERUM OR PLASMA 11.9 ng/mL 7.0 - 31.4 07/05 Specimen Type: SERUM No comment entered. Ordering Provider: IVAN GIBSON Report Released Date/Time: Apr 12, 2025 03:48 PM Reporting Lab: [facility] [place] [facility] [address] [address] Performing Lab: [place] [facility] [place] [address] [address] [facility] [place] [facility] HEAVY METALS PANEL,BLO OD CADMIUM [MASS/VOLUM E] IN BLOOD <0.5ug /L 07/05 Specimen Type: BLOOD Comment: REFERENCE RANGE: <23 mcg/L Whole Blood Arsenic level >100 mcg/L is indicative of acute/chron ic exposure. Urine is usually the best specimen for the analysis of arsenic in body fluids. Blood levels tend to be low even when urine concentrati ons are high This test was developed and its analytical performance characteris tics have been determined by [employer] [place], [place]. It has not been cleared or approved by the U.S. Food and Drug Administrat [employer]. This assay has been validated pursuant to the CLIA regulations and is used for clinical purposes. REFERENCE RANGE: <3.5 mcg/dL A blood lead reference value of <5 mcg/dL should apply to only [facility] residents per [facility]. Analysis was performed by Inductively Coupled Plasma Mass Spectrometr y (ICPMS) This test was developed and its analytical performance characteris tics have been determined by [employer] [place], [place]. It has not been cleared or approved by the U.S. Food and Drug Administrat [employer]. This assay has been validated pursuant to the CLIA regulations and is used for clinical purposes. REFERENCE RANGE: <=10 mcg/L This test was developed and its analytical performance characteris tics have been determined by [employer] [place], [place]. It has not been cleared or approved by the U.S. Food and Drug Administrat [employer]. This assay has been validated pursuant to the CLIA regulations and is used for clinical purposes. Reference Range: Adults, Non-Smokers : 1.7 mcg/L or less Adults, Smokers: 5.0 mcg/L or less OSHA Reference Range: 5.0 mcg/L or less Toxic Concentrati on: Early signs of toxicity have been observed at 30 mcg/L. Cadmium is a naturally occurring element that is mined and used in industrial production because of its durability. Exposure tends to occur in industrial sectors including [employer], and [employer]. Excessive cadmium exposure can damage lungs, kidneys, and the digestive tract. For more information , visit https://www .cdc.gov/ni osh/topics/ cadmium/ This test was developed and its analytical performance characteris tics have been determined by [employer] [place], [place]. It has not been cleared or approved by the U.S. Food and Drug Administrat ion. This assay has been validated pursuant to the CLIA regulations and is used for clinical purposes. Test Performed by [employer], [employer] [place], [address] [place], [place] Morgan Irving M.D., Ph.D., Director of Laboratorie s , CLIA [id number] TEST PERFORMED AT: , Ordering Provider: IVAN GIBSON Report Released Date/Time: Apr 12, 2025 03:48 PM Reporting Lab: [facility] [address] [address] Performing Lab: [facility] [address] [address] [facility] HEAVY METALS PANEL,BLO OD ARSENIC [MASS/VOLUM E] IN BLOOD <3ug/L 07/05 Specimen Type: BLOOD Comment: REFERENCE RANGE: <23 mcg/L Whole Blood Arsenic level >100 mcg/L is indicative of acute/chron ic exposure. Urine is usually the best specimen for the analysis of arsenic in body fluids. Blood levels tend to be low even when urine concentrati ons are high This test was developed and its analytical performance characteris tics have been determined by [employer] [place], [place]. It has not been cleared or approved by the U.S. Food and Drug Administrat ion. This assay has been validated pursuant to the CLIA regulations and is used for clinical purposes. REFERENCE RANGE: <3.5 mcg/dL A blood lead reference value of <5 mcg/dL should apply to only [facility] residents per [facility]. Analysis was performed by Inductively Coupled Plasma Mass Spectrometr y (ICPMS) This test was developed and its analytical performance characteris tics have been determined by [employer] [place], [place]. It has not been cleared or approved by the U.S. Food and Drug Administrat [employer]. This assay has been validated pursuant to the CLIA regulations and is used for clinical purposes. REFERENCE RANGE: <=10 mcg/L This test was developed and its analytical performance characteris tics have been determined by [employer]. It has not been cleared or approved by the U.S. Food and Drug Administrat ion. This assay has been validated pursuant to the CLIA regulations and is used for clinical purposes. Reference Range: Adults, Non-Smokers : 1.7 mcg/L or less Adults, Smokers: 5.0 mcg/L or less OSHA Reference Range: 5.0 mcg/L or less Toxic Concentrati on: Early signs of toxicity have been observed at 30 mcg/L. Cadmium is a naturally occurring element that is mined and used in industrial production because of its durability. Exposure tends to occur in industrial sectors including [employer], [employer], and [employer]. Excessive cadmium exposure can damage lungs, kidneys, and the digestive tract. For more information , visit https://www .cdc.gov/ni osh/topics/ cadmium/ This test was developed and its analytical performance characteris tics have been determined by [facility] [place], [place]. It has not been cleared or approved by the U.S. Food and Drug Administrat [place]. This assay has been validated pursuant to the CLIA regulations and is used for clinical purposes. Test Performed by [facility], [employer] [facility], [address] [place] [address] Morgan Irving M.D., Ph.D., Director of Laboratorie s , CLIA [id number] TEST PERFORMED AT: , Ordering Provider: IVAN GIBSON Report Released Date/Time: Apr 12, 2025 03:48 PM Reporting Lab: [facility] [address] [id number] Performing Lab: [facility] Content [facility] [address] [address] [facility] [employer] [facility] HEAVY METALS PANEL,BLO OD LEAD [MASS/VOLUM E] IN BLOOD <1.0ug /dL 07/05 Specimen Type: BLOOD Comment: REFERENCE RANGE: <23 mcg/L Whole Blood Arsenic level >100 mcg/L is indicative of acute/chron ic exposure. Urine is usually the best specimen for the analysis of arsenic in body fluids. Blood levels tend to be low even when urine concentrati ons are high This test was developed and its analytical performance characteris tics have been determined by [employer] [place]. It has not been cleared or approved by the U.S. Food and Drug Administrat ion. This assay has been validated pursuant to the CLIA regulations and is used for clinical purposes. REFERENCE RANGE: <3.5 mcg/dL A blood lead reference value of <5 mcg/dL should apply to only [facility] residents per [facility]. Analysis was performed by Inductively Coupled Plasma Mass Spectrometr y (ICPMS) This test was developed and its analytical performance characteris tics have been determined by [employer] [place] It has not been cleared or approved by the U.S. Food and Drug Administrat ion. This assay has been validated pursuant to the CLIA regulations and is used for clinical purposes. REFERENCE RANGE: <=10 mcg/L This test was developed and its analytical performance characteris tics have been determined by [employer] It has not been cleared or approved by the U.S. Food and Drug Administrat ion. This assay has been validated pursuant to the CLIA regulations and is used for clinical purposes. Reference Range: Adults, Non-Smokers : 1.7 mcg/L or less Adults, Smokers: 5.0 mcg/L or less OSHA Reference Range: 5.0 mcg/L or less Toxic Concentrati on: Early signs of toxicity have been observed at 30 mcg/L. Cadmium is a naturally occurring element that is mined and used in industrial production because of its durability. Exposure tends to occur in industrial sectors including [employer], [employer], and [employer]. Excessive cadmium exposure can damage lungs, kidneys, and the digestive tract. For more information , visit https://www .cdc.gov/ni osh/topics/ cadmium/ This test was developed and its analytical performance characteris tics have been determined by [employer] [place] It has not been cleared or approved by the U.S. Food and Drug Administrat [employer]. This assay has been validated pursuant to the CLIA regulations and is used for clinical purposes. Test Performed by [employer], [employer] [place], [address] [place], [place] Morgan Irving M.D., Ph.D., Director of Laboratorie s , CLIA [id number] TEST PERFORMED AT: , Ordering Provider: IVAN GIBSON Report Released Date/Time: Apr 12, 2025 03:48 PM Reporting Lab: [facility] [address] [address] Performing Lab: [facility] [address] [address] [facility] HEAVY METALS PANEL,BLO OD MERCURY [MASS/VOLUM E] IN BLOOD <4ug/L 07/05 Specimen Type: BLOOD Comment: REFERENCE RANGE: <23 mcg/L Whole Blood Arsenic level >100 mcg/L is indicative of acute/chron ic exposure. Urine is usually the best specimen for the analysis of arsenic in body fluids. Blood levels tend to be low even when urine concentrati ons are high This test was developed and its analytical performance characteris tics have been determined by [employer] It has not been cleared or approved by the U.S. Food and Drug Administrat ion. This assay has been validated pursuant to the CLIA regulations and is used for clinical purposes. REFERENCE RANGE: <3.5 mcg/dL A blood lead reference value of <5 mcg/dL should apply to only [facility] residents per [facility]. Analysis was performed by Inductively Coupled Plasma Mass Spectrometr y (ICPMS) This test was developed and its analytical performance characteris tics have been determined by [place] It has not been cleared or approved by the U.S. Food and Drug Administrat ion. This assay has been validated pursuant to the CLIA regulations and is used for clinical purposes. REFERENCE RANGE: <=10 mcg/L This test was developed and its analytical performance characteris tics have been determined by [employer] [place]. It has not been cleared or approved by the U.S. Food and Drug Administrat ion. This assay has been validated pursuant to the CLIA regulations and is used for clinical purposes. Reference Range: Adults, Non-Smokers : 1.7 mcg/L or less Adults, Smokers: 5.0 mcg/L or less OSHA Reference Range: 5.0 mcg/L or less Toxic Concentrati on: Early signs of toxicity have been observed at 30 mcg/L. Cadmium is a naturally occurring element that is mined and used in industrial production because of its durability. Exposure tends to occur in industrial sectors including [employer], [employer], and [employer]. Excessive cadmium exposure can damage lungs, kidneys, and the digestive tract. For more information , visit https://www .cdc.gov/ni osh/topics/ cadmium/ This test was developed and its analytical performance characteris tics have been determined by [employer] [place], [place]. It has not been cleared or approved by the U.S. Food and Drug Administrat [employer]. This assay has been validated pursuant to the CLIA regulations and is used for clinical purposes. Test Performed by [facility], [employer] [facility], [address] [place] [address] Morgan Irving M.D., Ph.D., Director of Laboratorie s , CLIA [id number] TEST PERFORMED AT: , Ordering Provider: IVAN GIBSON Report Released Date/Time: Apr 12, 2025 03:48 PM Reporting Lab: [facility] [address] [address] Performing Lab: [facility] [address] [address] [facility] HEMOGLOBI N A1C PANEL HEMOGLOBIN A1C/HEMOGLO BIN.TOTAL IN BLOOD 5.8 4.0 - 5.6 07/05 H Specimen Type: BLOOD Comment: Values obtained from A1C measurement s can vary. For atypical A1C assays, a reported value of 7.0 could actually be between 6.72 and 7.28 if measured by a reference method. A reported value of 9.0 could actually be between 8.73 and 9.27. Ref: http://www. ngsp.org/CA Pdata.asp Ordering Provider: IVAN GIBSON Report Released Date/Time: Apr 12, 2025 03:48 PM Reporting Lab: [facility]ITAL[facility] [address] [address] Performing Lab: [facility]PITALUSE[address] [address] [facility]ITALUSE [facility] LIPID PANEL FASTING CHOLESTEROL [MASS/VOLUM E] IN SERUM OR PLASMA 167 mg/dL 0 - 199 07/05 Specimen Type: SERUM No comment entered. Ordering Provider: CAMRON LLAMAS Report Released Date/Time: May 24, 2025 06:24 PM Reporting Lab: [address] [address] Performing Lab: [facility]ITALUSE[address] [address] [place] LIPID PANEL FASTING TRIGLYCERID E [MASS/VOLUM E] IN SERUM OR PLASMA 187 mg/dL 0 - 149 07/05 H Specimen Type: SERUM No comment entered. Ordering Provider: CAMRON LLAMAS Report Released Date/Time: May 24, 2025 06:24 PM Reporting Lab: [address] [address] Performing Lab: [facility] [address] [place] LIPID PANEL FASTING CHOLESTEROL IN LDL [MASS/VOLUM E] IN SERUM OR PLASMA BY CALCULATION 89 mg/dL 0 - 129 07/05 Specimen Type: SERUM No comment entered. Ordering Provider: CAMRON LLAMAS Report Released Date/Time: May 24, 2025 06:24 PM Reporting Lab: [address] [address] Performing Lab: [address] [address] [place] LIPID PANEL FASTING CHOLESTEROL .TOTAL/CHOL ESTEROL IN HDL [MASS RATIO] IN SERUM OR PLASMA 4.1 07/05 Specimen Type: SERUM No comment entered. Ordering Provider: CAMRON LLAMAS Report Released Date/Time: May 24, 2025 06:24 PM Reporting Lab: [facility] [place] [facility] [address] [address] Performing Lab: [facility] TRN [facility]ITALUSETS [facility] [address] [address] [facility] LIPID PANEL FASTING CHOLESTEROL IN HDL [MASS/VOLUM E] IN SERUM OR PLASMA 41 mg/dL 40 07/05 Specimen Type: SERUM No comment entered. Ordering Provider: CAMRON LLAMAS Report Released Date/Time: May 24, 2025 06:24 PM Reporting Lab: [facility]TRN [facility]PITALUSEA.[facility] [address] [address] Performing Lab: [facility]N [facility]ITALUSEA[facility] [address] [address] [facility] LIPID PANEL, NON FASTING CHOLESTEROL [MASS/VOLUM E] IN SERUM OR PLASMA 167 mg/dL 0 - 199 07/05 Specimen Type: SERUM No comment entered. Ordering Provider: IVAN GIBSON Report Released Date/Time: Apr 12, 2025 03:48 PM Reporting Lab: [facility]ITALUSEA[facility] [address] [address] Performing Lab: [facility] TRN [facility]ITALUSE[address] [address] [facility]N [facility] HOSPITALUSE [facility] LIPID PANEL, NON FASTING TRIGLYCERID E [MASS/VOLUM E] IN SERUM OR PLASMA 187 mg/dL 0 - 149 07/05 H Specimen Type: SERUM No comment entered. Ordering Provider: IVAN GIBSON Report Released Date/Time: Apr 12, 2025 03:48 PM Reporting Lab: [facility] TRN [facility]OSPITALUSETS [facility] [address] [address] Performing Lab: [facility]TRN [facility]ITALUSE[address] [address] [facility]OSPITALUSE [facility] LIPID PANEL, NON FASTING CHOLESTEROL IN LDL [MASS/VOLUM E] IN SERUM OR PLASMA BY CALCULATION 89 mg/dL 0 - 129 07/05 Specimen Type: SERUM No comment entered. Ordering Provider: IVAN GIBSON Report Released Date/Time: Apr 12, 2025 03:48 PM Reporting Lab: [facility]N [facility]ITALUSETS [facility] [address] [address] Performing Lab: [facility]N [facility]ITALUSETS [facility] [address] [address] [facility]N [facility]PITALUSE [facility] LIPID PANEL, NON FASTING CHOLESTEROL .TOTAL/CHOL ESTEROL IN HDL [MASS RATIO] IN SERUM OR PLASMA 4.1 07/05 Specimen Type: SERUM No comment entered. Ordering Provider: IVAN GIBSON Report Released Date/Time: Apr 12, 2025 03:48 PM Reporting Lab: [facility]ITALUSE[facility] [address] [address] Performing Lab: [facility]N [facility]ITALUSEA[facility] [address] [address] [facility] LIPID PANEL, NON FASTING CHOLESTEROL IN HDL [MASS/VOLUM E] IN SERUM OR PLASMA 41 mg/dL 40 07/05 Specimen Type: SERUM No comment entered. Ordering Provider: IVAN GIBSON Report Released Date/Time: Apr 12, 2025 03:48 PM Reporting Lab: [facility]ITALUSEA[facility] [address] [address] Performing Lab: [place] CN[facility]OSPITALUSETS [facility] [address] [address] [facility] LIVER FUNCTION PROTEIN [MASS/VOLUM E] IN SERUM OR PLASMA 7.1 g/dL 6.4 - 8.3 07/05 Specimen Type: SERUM No comment entered. Ordering Provider: IVAN GIBSON Report Released Date/Time: Apr 12, 2025 03:48 PM Reporting Lab: [facility]ITALUSETS [facility] [address] [address] Performing Lab: [place] [facility]ITAL[facility] [address] [address] [facility]N [facility]OSPITALUSE [facility] LIVER FUNCTION ALBUMIN [MASS/VOLUM E] IN SERUM OR PLASMA BY BROMOCRESOL PURPLE (BCP) DYE BINDING METHOD 4.2 g/dL 3.2 - 4.6 07/05 Specimen Type: SERUM No comment entered. Ordering Provider: IVAN GIBSON Report Released Date/Time: Apr 12, 2025 03:48 PM Reporting Lab: [facility] [place] [facility] [address] [address] Performing Lab: [place] [facility]ITAL[facility] [address] [address] [place] [facility] [facility] LIVER FUNCTION ALKALINE PHOSPHATASE [ENZYMATIC ACTIVITY/VO LUME] IN SERUM OR PLASMA 69 U/L 40 - 150 07/05 Specimen Type: SERUM No comment entered. Ordering Provider: IVAN GIBSON Report Released Date/Time: Apr 12, 2025 03:48 PM Reporting Lab: [place] [address] [address] Performing Lab: [place] [facility]ITALUSETS [address] [address] [facility] LIVER FUNCTION ASPARTATE AMINOTRANSF ERASE [ENZYMATIC ACTIVITY/VO LUME] IN SERUM OR PLASMA BY WITH P-5'-P 28 U/L 5 - 34 07/05 Specimen Type: SERUM No comment entered. Ordering Provider: IVAN GIBSON Report Released Date/Time: Apr 12, 2025 03:48 PM Reporting Lab: [place] [facility] [place] [facility] [address] [address] Performing Lab: [place] [facility] [place] [facility] [address] [address] [facility] [facility] LIVER FUNCTION ALANINE AMINOTRANSF ERASE [ENZYMATIC ACTIVITY/VO LUME] IN SERUM OR PLASMA BY WITH P-5'-P 15 U/L 0 - 55 07/05 Specimen Type: SERUM No comment entered. Ordering Provider: IVAN GIBSON Report Released Date/Time: Apr 12, 2025 03:48 PM Reporting Lab: [place] [facility] [place] [facility] [address] [address] Performing Lab: [place] [facility] [place] [facility] [address] [address] [facility] [place] [facility] LIVER FUNCTION BILIRUBIN.T OTAL [MASS/VOLUM E] IN SERUM OR PLASMA 0.5 mg/dL 0.2 - 1.2 07/05 Specimen Type: SERUM No comment entered. Ordering Provider: IVAN GIBSON Report Released Date/Time: Apr 12, 2025 03:48 PM Reporting Lab: [place] [facility] [place] [facility] [address] [address] Performing Lab: [facility] [place] [facility] [address] [address] [facility] [place] [facility] VITAMIN B12 COBALAMIN (VITAMIN B12) [MASS/VOLUM E] IN SERUM OR PLASMA 467 pg/mL 213 - 816 07/05 Specimen Type: SERUM No comment entered. Ordering Provider: IVAN GIBSON Report Released Date/Time: Jun 27, 2025 01:59 PM Reporting Lab: [facility] [place] [facility] [address] [address] Performing Lab: [place] [facility] [place] [facility] [address] [address] [facility] [place] [facility] Vital Signs Combined list of inpatient and outpatient Vital Signs from Department of Defense and Veterans Affairs, ranging from 12 months to all on record, depending upon the facility. Vital Sign Value Date Comments Source SYSTOLIC BLOOD PRESSURE 105 04/12/20 15:33:03 [facility] DIASTOLIC BLOOD PRESSURE 70 025 15:33:03 [facility] PULSE OXIMETRY 95 % 04/12/2025 15:33:03 [facility] WEIGHT 194 04/12/2025 15:33:03 [facility] BMI 26 kg/m2 04/12/2025 15:33:03 [facility] PAIN 1 04/12/2025 15:33:03 [facility] TEMPERATURE 98.6 04/12/2025 15:33:03 [facility] PULSE 80 04/12/2025 15:33:03 [facility] RESPIRATION 16 04/12/2025 15:33:03 [facility] SYSTOLIC BLOOD PRESSURE 110 04/07/20 14:00:00 [facility] [place] DIASTOLIC BLOOD PRESSURE 70 025 14[facility]00:00 [facility] [place] PULSE OXIMETRY 95 % 04/07/2025 14:00:00 [facility] WEIGHT 196.6 04/07/2025 14:00:00 [facility] BMI 27 kg/m2 04/07/2025 14:00:00 [facility] PAIN 0 04/07/2025 14:00:00 [facility] TEMPERATURE 97.6 04/07/2025 14:00:00 [facility] PULSE 81 04/07/2025 14:00:00 [facility] RESPIRATION 16 04/07/2025 14:00:00 [facility] SYSTOLIC BLOOD PRESSURE 118 01/26/20 25 15:21:32 [facility] DIASTOLIC BLOOD PRESSURE 78 025 15:21:32 [facility] PULSE OXIMETRY 96 % 01/25/2025 15:21:32 [facility] WEIGHT 198.2 01/25/2025 15:21:32 [facility] BMI 27 kg/m2 01/25/2025 15:21:32 [facility] PAIN 0 01/25/2025 15:21:32 [facility] TEMPERATURE 98.2 01/25/2025 15:21:32 [facility] PULSE 82 01/25/2025 15:21:32 [facility] RESPIRATION 16 01/25/2025 15:21:32 [facility] SYSTOLIC BLOOD PRESSURE 110 01/22/20 25 12:00:00 [facility] DIASTOLIC BLOOD PRESSURE 80 025 12:00:00 [facility] PULSE OXIMETRY 93 % 01/21/2025 12:00:00 [facility] PAIN 0 01/21/2025 12:00:00 [facility] TEMPERATURE 97.8 01/21/2025 12:00:00 [facility] PULSE 87 01/21/2025 12:00:00 [facility] RESPIRATION 16 01/21/2025 12:00:00 [facility] SYSTOLIC BLOOD PRESSURE 120 11/19/19 25 12:00:00 [facility] [place] DIASTOLIC BLOOD PRESSURE 80 025 12:00:00 [facility] PULSE OXIMETRY 94 11/18/2024 12:00:00 [facility] WEIGHT 222 11/18/2024 12:00:00 [facility] [place] BMI 30 kg/m2 11/18/2024 12:00:00 [facility] PAIN 0 11/18/2024 12:00:00 [facility] TEMPERATURE 97.8 11/18/2024 12:00:00 [facility] PULSE 80 11/18/2024 12:00:00 [facility] RESPIRATION 16 11/18/2024 12:00:00 [facility] [place] Encounters Combined list of: 1) Encounters from Department of Veterans Affairs facilities going backup to the last 18 months, not all VA inpatient encounters are included; 2) Encounters from the Department of Defense facilities going backup to 280 months. 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 Diagnos is: ICD-10- CM F33.3 Major depress v disorde r, recurre nt, severe w psych symptom s [facility] LLAMAS G 03/18 [facility] [place] [facility] En[facility] [id number] 03/22 [facility] Outpatient Encounter [id number] 1. [facility] JB ALEX EDEN 03/30 [facility] Encounter [id number] Diagnos is: ICD-10- CM F41.9 Anxiety disorde r, unspeci fied IVAN ONTIVEROS 03/31 [facility] RN E&M PLAN SVS, 15 MIN [id number] Diagnos is: ICD-10- CM I10 Essenti al (primar y) hyperte nsion OTOOLE-JB CH EDEN 03/31 [facility] En[facility] [id number] 04/05 [facility] CASE MANAGEMENT [id number] 1. Diagnos is: ICD-10- CM Z65.9 Problem related to unspeci fied psychos ocial circums arlet RODRIGUEZIna LATONYA Mcgrath 04/06 [facility] Outpatient Encounter [id number] 04/06 [facility] [place] [facility] [facility] Outpatient Encounter [id number] 04/18 [facility] [place] [facility] OFFICE O/P EST MOD 30 MIN [id number] Diagnos is: ICD-10- CM F33.3 Major depress v disorde r, recurre nt, severe w psych symptom s LLAMAS,ST EPHEN G 04/21 [place] [facility] HHCP-SERV OF OT,EA 15 MIN [id number] Diagnos is: ICD-10- CM R26.9 Unspeci fied abnorma lities of gait and mobilit y JEAN BAPTISTE,CAT HY L 04/22 [facility] [place] [place] [facility] Outpatient Encounter [id number] Diagnos is: ICD-10- CM F41.9 Anxiety disorde r, unspeci fied EVELYN DY,IVAN 04/26 [facility] [place] [facility] Outpatient Encounter [id number] Diagnos is: ICD-10- CM R54 Age-rel ated physica l debilit y EVELYN DY,IVAN 04/27 [facility] [place] [facility] Outpatient Encounter [id number] 04/28 [facility] Outpatient Encounter [id number] 04/29 [facility] QNHP OL DIG ASSMT&MGMT 21+ [id number] 1. Diagnos is: ICD-10- CM Z79.899 Other long term care social worker (curren t) drug therapy LIVHIEU Dayanara 04/30 [facility] [place] PSYTX W PT 45 MINUTES [id number] Diagnos is: ICD-10- CM F33.3 Major depress v disorde r, recurre nt, severe w psych symptom s DOV SILVERIO 05/04 [place] [facility] MEASURE BLOOD OXYGEN LEVEL [id number] 1. 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 JB LEVY 05/17 [facility] Outpatient Encounter [id number]/[id number] [facility] [place] [facility] Outpatient Encounter [id number] 1.05/18 [facility] [place] [place] [facility] [place] O/P EST MOD 30 MIN [id number] Diagnos is: ICD-10- CM F33.3 Major depress v disorde r, recurre nt, severe w psych symptom s LLAMASST CHAUDHARICRYSTAL G 05/18 [place] W PT 30 MINUTES [id number] Diagnos is: ICD-10- CM F33.3 Major depress v disorde r, recurre nt, severe w psych symptom s JEAN CLAUDEDOV AH 05/25 [facility] [place] W PT 30 MINUTES [id number] Diagnos is: ICD-10- CM F33.3 Major depress v disorde r, recurre nt, severe w psych symptom s DOV SILVERIO 06/15 [place] [facility] [place] [facility] Outpatient Encounter [id number] 1. OTOOLEJB CH 06/17 [facility] [place] [facility] [place] [facility] QNHP OL DIG ASSMT&MGMT 21+ [id number] 1. Diagnos is: ICD-10- CM Z79.899 Other longterm (curren t) drug therapy AJIT LEWISEDEN Ade 06/22 [facility] [place] [facility] [place] OFF[place] O/P EST MOD 30 MIN [id number] Diagnos is: ICD-10- CM F33.3 Major depress v disorde r, recurre nt, severe w psych symptom s [facility] BRENDA LLAMAS G 06/22 [facility] [place] [facility] [place] Outpatient Encounter [id number] [facility] [place] [facility] [place] [facility] Outpatient Encounter [id number] 1.06/29 [facility] [place] [facility] [place] W PT 30 MINUTES 11070-1.63 1BY. 23 Diagnos is: ICD-10- CM F33.3 Major depress v disorde r, recurre nt, severe w psych symptom s DOV SILVERIO 07/13 [facility] [place] [place] OFFICE O/P EST HI 40 MIN [id number] Diagnos is: ICD-10- CM F33.3 Major depress v disorde r, recurre nt, severe w psych symptom s [facility] LLAMAS G 07/20 [place] [facility] Out[facility] Encounter [id number] 07/21 [facility] ADMN SARSCOV2 VACC 1 DOSE 26244-8.63 1. Diagnos is: ICD-10- CM I10 Essenti al (primar y) hyperte nsion [facility] Reyes EDEN 07/27 [facility] Outpatient Encounter [id number] MATTY BRICEÑO 08/13 [facility] Outpatient Encounter [id number] MATTY BRICEÑO 08/13 [facility] Outpatient Encounter [id number] 08/19 [facility] [place] PT 30 MINUTES 40113-7.63 1BY. 40 Diagnos is: ICD-10- CM F33.3 Major depress v disorde r, recurre nt, severe w psych symptom s DOV SILVERIO [place] [facility] Outpatient Encounter [id number] 08/31 [facility] [place] OFF[place] O/P EST MOD 30 MIN [id number] [id number] Diagnos is: ICD-10- CM F33.3 Major depress v disorde r, recurre nt, severe w psych symptom s [facility] [place] [facility] Outpatient Encounter [id number] 09/18 [facility] [place] PT 45 MINUTES [id number] [id number] Diagnos is: ICD-10- CM F41.9 Anxiety disorde r, unspeci fied DOV SILVERIO 09/21 [place] [facility] NQHP OL DIG ASSMT&MGMT 21+ [id number] [id number] Diagnos is: ICD-10- CM Z79.899 Other long term care social worker (curren t) drug therapy LIVHIEU Dayanara 09/26 [facility] Outpatient Encounter [id number] 09/28 [facility] [place] O/P EST MOD 30 MIN [id number] [id number] Diagnos is: ICD-10- CM F33.3 Major depress v disorde r, recurre nt, severe w psych symptom s LLAMAS,ST EPHEN G 10/05 [place] [facility] MEASURE BLOOD OXYGEN LEVEL [id number] [id number] 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 JB LEVY 10/12 [facility] Outpatient Encounter [id number] 10/16 [facility] [place] PT 30 MINUTES 09555-3.63 [id number] Diagnos is: ICD-10- CM F41.9 Anxiety disorde r, unspeci fiDOV Horvath 10/19 [place] O/P EST MOD 30 MIN [id number] [id number] Diagnos is: ICD-10- CM F33.3 Major depress v disorde r, recurre nt, severe w psych symptom s [facility] LLAMAS G 11/02 [place] [facility] Outpatient Encounter [id number] 11/05 [facility] Outpatient Encounter [id number] [id number] 11/17 [facility] MEASURE BLOOD OXYGEN LEVEL [id number] [id number] Diagnos is: ICD-10- CM R54 Age-rel ated physica l debilit y OTOOLE-HUNT CHEJB Reyes EDEN 11/18 [facility] [place] PT 30 MINUTES 90923-4.63 [id number] Diagnos is: ICD-10- CM F41.9 Anxiety disorde r, unspeci fied JEAN CLAUDEDOV YEHUDA 11/23 [facility] [place] OFFICE O/P EST MOD 30 MIN [id number] [id number] Diagnos is: ICD-10- CM F33.3 Major depress v disorde r, recurre nt, severe w psych symptom s [facility] BR[facility] LLAMAS G 11/30 [place] [facility] HEARING AID REPAIR/MOD IFYING [id number] [id number] Diagnos is: ICD-10- CM Z46.1 Encount er for fitting and adjustm ent of hearing aid WILIAN JACKSON 12/14 [facility] OFFICE O/P EST MOD 30 MIN [id number] Diagnos is: ICD-10- CM H35.053 Retinal neovasc ulariza tion, unspeci fied, nicolle al LONDON BERG 12/14 [facility] NQHP OL DIG ASSMT&MGMT 21+ [id number] [id number] Diagnos is: ICD-10- CM Z79.899 Other longterm (curren t) drug therapy HIEU PECK 12/14 [facility] Outpatient Encounter [id number] 12/21 [facility] 30 MINUTES [id number] [id number] Diagnos is: ICD-10- CM F33.3 Major depress v disorde r, recurre nt, severe w psych symptom s DOV SILVERIO 12/28 [place] [facility] Outpatient Encounter [id number] LATONYA GONZALEZ 01/04 [facility] Outpatient Encounter [id number] JB LEVY 01/05 [facility] Outpatient Encounter [id number] 01/06 [facility] NQHP OL DIG ASSMT&MGMT 5-10 [id number] [id number] Diagnos is: ICD-10- CM R54 Age-rel ated physica l debilit y SOVEROW,CH RISTY A 01/07 [facility] [place] OFF[place] O/P EST HI 40 MIN [id number] [id number] Diagnos is: ICD-10- CM F33.3 Major depress v disorde r, recurre nt, severe w psych symptom s [facility] BR[facility] LLAMAS G 01/11 [place] [facility] Outpatient Encounter [id number] NADIAJB CH 01/17 [facility] Out[facility] Encounter [id number] [id number] AREN COTTO 01/18 [facility] MEASURE BLOOD OXYGEN LEVEL [id number] [id number] 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 DIONTE-GRA DY,IVAN 01/21 [facility] Out[facility] Encounter [id number] [id number] Diagnos is: ICD-10- CM R54 Age-rel ated physica l debilit y DIONTE-JOSE CARLOS DY,IVAN 01/25 [facility] HHCP-SERV OF PT,EA 15 MIN 85006-7.63 [id number] Diagnos is: ICD-10- CM R54 Age-rel ated physica l debilit y RAIVEL,KER RY 01/27 [facility] [place] PT 30 MINUTES 13273-5.63 [id number] Diagnos is: ICD-10- CM F33.3 Major depress v disorde r, recurre nt, severe w psych symptom s JEAN CLAUDE,DEBOR AH 02/01 [place] [facility] Outpatient Encounter [id number] 02/07 [facility] Out[facility] Encounter [id number] MARLENE JAYME L 02/07 [facility] Outpatient Encounter [id number] 02/15 [facility] OFF[facility] O/P EST MOD 30 MIN [id number] [id number] 20 Diagnos is: ICD-10- CM F33.3 Major depress v disorde r, recurre nt, severe w psych symptom s [facility] BR[facility] LLAMAS 02/15 [place] [facility] NQHP OL DIG ASSMT&MGMT 21+ [id number] [id number] Diagnos is: ICD-10- CM Z79.899 Other longterm (curren t) drug therapy HIEU PECK 03/14 [facility] Outpatient Encounter [id number] 03/15 [facility] [place] Outpatient Encounter [id number] 03/15 [facility] [place] [place] [facility] CASE MANAGEMENT [id number] [id number] Diagnos is: ICD-10- CM Z65.9 Problem related to unspeci fied psychos ocial circums tanrowena Mcgrath,LATONYA 03/18 [facility] HHCP-SERV OF OT,EA 15 MIN [id number] [id number] Diagnos is: ICD-10- CM R26.9 Unspeci fied abnorma lities of gait and mobilit y JEAN BAPTISTE,CAT HY L 03/31 [facility] [place] PT 30 MINUTES 03480-3.63 [id number] Diagnos is: ICD-10- CM F33.3 Major depress v disorde r, recurre nt, severe w psych symptom s DOV SILVERIO AH 04/05 [facility]P EST MOD 30 MIN 11309-1.63 [id number] Diagnos is: ICD-10- CM F33.3 Major depress v disorde r, recurre nt, severe w psych symptom s [facility] BR[facility] LLAMAS G 04/05 [facility] MEASURE BLOOD OXYGEN LEVEL [id number] [id number] Diagnos is: ICD-10- CM I10 Essenti al (primar y) hyperte nsion [facility] Re[facility] EDEN 04/07 [facility] [place] [place] [facility] Outpatient Encounter [id number] Diagnos is: ICD-10- CM Z00.01 Encount er for general adult medical exam w abnorma l finding s DIONTE-JOSE CARLOS MORALESIVAN 04/12 [facility] [place] [facility] [place] HHCP-SERV OF PT,EA 15 MIN [id number] Diagnos is: ICD-10- CM R54 Age-rel ated physica l debilit y RAIVEL,KER RY 04/14 [facility] [place] [place] Outpatient Encounter [id number] 04/25 [facility] [place] [place] [facility] LD OFFICE O/P EST MOD 30 MIN [id number] [id number] Diagnos is: ICD-10- CM F33.3 Major depress v disorde r, recurre nt, severe w psych symptom s [facility] BRENDA LLAMAS 05/24 [facility] [place] [facility] Outpatient Encounter [id number] 05/29 [facility] [place] [facility] Outpatient Encounter [id number] 06/06 [facility] [place] [facility] Outpatient Encounter [id number] [facility] [place] [place] [facility] NQHP OL DIG ASSMT&MGMT 21+ [id number] [id number] Diagnos is: ICD-10- CM Z79.899 Other longterm (curren t) drug therapy LIVHIEU Dayanara 06/27 [place] [facility] [place] [facility] SELF CARE MNGMENT TRAINING [id number] [id number] Diagnos is: ICD-10- CM F33.3 Major depress v disorde r, recurre nt, severe w psych symptom s DIVINEIWONA WN 06/30 [place] [facility] [place] [facility] ELECTROCAR DIOGRAM TRACING [id number] [id number] Diagnos is: ICD-10- CM R06.02 Shortne ss of breath BERT,NI ELODIA R 07/05 [facility] OFFICE O/P EST HI 40 MIN [id number] [id number] 16 Diagnos is: ICD-10- CM F33.3 Major depress v disorde r, recurre nt, severe w psych symptom s FARHADST FARAEN G 07/05 [facility] ELECTROCAR DIOGRAM REPORT [id number] Diagnos is: ICD-10- CM Z13.6 Encount er for screeni ng for cardiov ascular disorde rs LORE HERNANDEZ 07/05 [place] [facility] SYNCH AUDIO-ONLY EST MOD 30 [id number] [id number] Diagnos is: ICD-10- CM I25.10 Athscl heart disease of [place] coronar y artery w/o ang pctrs DIONTE-JOSE CARLOS MORALES,IVAN 07/06 [place] [facility] [place] [facility] Outpatient Encounter [id number] EVELYN MORALES,IVAN 07/08 [facility] [place] [facility] SYNCH AUDIO-ONLY EST SF 10 [id number] [id number] Diagnos is: ICD-10- CM I25.10 Athscl heart disease of [place] coronar y artery w/o ang pctrs EVELYN MORALES,IVAN 07/11 [facility] [place] [facility] Outpatient Encounter [id number] Diagnos is: ICD-10- CM I27.20 Pulmona ry hyperte nsion, unspeci fied EVELYN MORALES,IVAN 07/11 [facility] [place] [facility] TTE W/DOPPLER COMPLETE [id number] Diagnos is: ICD-10- CM R94.31 Abnorma l electro cardiog alex [ECG] [EKG] ALEXX GEORGES 07/22 [facility] [place] OFFICE O/P EST MOD 30 MIN [id number] Diagnos is: ICD-10- CM R94.31 Abnorma l electro cardiog alex [ECG] [EKG] LOLI LYNN 07/22 [place] [facility] Outpatient Encounter [id number] EVELYN MORALES,IVAN 07/22 [facility] [place] Outpatient Encounter [id number] 07/31 [facility] [place] [facility] PH1 ASSMT&MGMT NQHP 11-20 [id number] [id number] Diagnos is: ICD-10- CM R68.89 Other general symptom s and signs DIVINEIWONA WN 08/01 [facility] Out[facility] En[facility] [id number] 08/03 [facility] PH1 ASSMT&MGMT NQHP 11-20 [id number] [id number] Diagnos is: ICD-10- CM Z76.[address] [facility] s in oth circums tances DIVINE,DA WN 08/03 [facility] [place] [facility] PH1 ASSMT&MGMT NQHP 11-20 [id number] [id number] Diagnos is: ICD-10- CM Z71.9 Eligibility And Occupancy Interviewer ing, unspeci fied IWONA HASKINS WN 08/08 [place] [facility] [place] [facility] Procedures Combined list of: 1) Procedures from Department of Veterans Affairs facilities going back up to thelast 18 months, not all [place] non-surgical procedures are included; 2) All procedures from the Department of Defense facilities. Procedure Procedure Type Code Date Perfomer Comments Sourc e FINE NEEDLE ASPIRATION BIOPSY, INCLUDING ULTRASOUND GUIDANCE; FIRST LESION 08/25/2018 Do D Social History Combined list of available smoking, tobacco, and other social history from Department of Defense and Veterans Affairs facilities. Social History Type Response Date Comment Source Tobacco smoking status NHIS VA-TOBACCO FORMER USER 09/17/2021 [facility] History of tobacco use VA-TOBACCO QUIT 15 YRS OR MORE 09/17/2021 [facility] History of tobacco use VA-TOBACCO FORMER USER 03/01/2020 [facility] [place] [facility] History of tobacco use VA-TOBACCO NEVER USED 01/20/2019 [facility] History of tobacco use QUIT TOBACCO USE > 7 YEARS AGO [facility]11[facility] History of tobacco use LIFETIME NON-USER OF TOBACCO 09/10/2017 MORTEZA TRONCOSO [facility] History of tobacco use QUIT TOBACCO USE > 7 YEARS AGO 01/20/2017 [facility] History of tobacco use QUIT TOBACCO USE > 7 YEARS AGO 01/09/2016 . [facility] History of tobacco use LIFETIME NON-USER OF TOBACCO 11/10/2013 MORTEZA TRONCOSO [facility] History of tobacco use LIFETIME NON-TOBACCO USER 06/09/2006 [facility] History of tobacco use HISTORY OF SMOKING 08/22/2003 [facility] History of tobacco use CURRENT SMOKER 06/24/2003 about 1 week/so [facility] This section is an empty social history section. [facility] Plan of Care List of future care activities from Department of Veterans Affairs facilities. Additional future care activities may be listed in the Assessment and Plan section. Date/Time Care Activity Care Activity Detail Facili ty 08/23/2025 AMBULATORY - PSYCHIATRY AMBULATORY - [facility] Advance Directives List of completed, amended, or rescinded Advance Directives on record at Department [facility] facilities. An actual copy of the Directive is not included. Date Advance Directive Provider Source 04/08/2024 ADVANCE DIRECTIVE LATONYA EWING [facility] 09/19/2021 GOALS and PREFERENCE S TO INFORM LIFE-SUSTAINING TREATMENT PLAN [facility] VIVAS [facility] 09/19/2020 ADVANCE DIRECTIVE ALANA MONIQUE [facility]
[2025-08-10 05:52] LABS: MANUAL DIFF FLAG NO
--- OUTSIDE RECORDS SUMMARY | 2025-08-10 05:54 | XMS_ITS | Encounter Summary ---
Author Organization [facility] Address [address] [place] [address] Care Team Providers Care Bridge Tender Name Role Phone Ref, Hasnopcp Primary Care Provider Unavailabl e Encounter Details Date Type Department Care Team (Late st Contact Info) Description 09/12/2023 Orders Only [facility] Nuclear Medicine [address] [place] [phone] Chava Lama MD PhD [address] [place] [address] Social History Tobacco Use Types Packs/Day Years [...] Care Team (Late st Contact Info) Description 04/06/2026 2:30 PM EDT Follow-Up [facility] - Neurology [address] [place] [phone] Osman Ma MD [address] [place] [address] documented as of this encounter Visit Diagnoses Not on filedocumented in this encounter Care Teams Bridge Tender Relationship Specialty Start Date End Date Ref, Pieter DO NOT EDIT THIS RECORD VIA PROVIDER ON THE FLY PCP - General Access Specialist 10/01/22 documented as of this encounter
--- OUTSIDE RECORDS SUMMARY | 2025-08-10 05:56 | XMS_ITS | Clinical Summary ---
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) 05/19/2025 Orders Only [facility] Neurology [address] [place] [phone] Osman Ma MD Parkinsonism, unspecified Parkinsonism type (Primary Dx) 05/19/[address] [address] Denice Farrell ([place]ar[place]) 05/19/2025 Refill [facility] [address] [place] [address] Denice Farrell (Sharifa) from Last 3 Months [...] Info) Description 04/06/2026 2:30 PM EDT Follow-Up [facility] - Neurology [address] [place] [phone] Osman Ma MD [address] [place] [address] Health Maintenance Due Date Last Done Comments [...] age to complete this topic Insurance MEDICARE [facility] Member Subscriber Plan / Payer (Ef fective 2013-Present) Name:BiggsSong Relation to Subscriber:Self Name:Song Biggs Payer ID:[id number] (NAIC) Group ID:[id number] Type:Not on file Address: [address] [place] [id number] Care Teams Grinder [employer] Plant Relationship Specialty Start Date End Date Ref, Hasmiles DO NOT EDIT THIS RECORD VIA PROVIDER ON THE FLY PCP - General Senior Operations Analyst 10/01/22
--- OUTSIDE RECORDS SUMMARY | 2025-08-10 05:56 | XMS_ITS | Encounter Summary ---
Author Organization [facility] Address [address] [place] [address] Care Team Providers Care Negotiations Director Name Role Phone Ref, Hasnopcp Primary Care Provider Unavailabl e Encounter Details Date Type Department Care Team (Latest Contact Info) Description 07/21/2025 myChart Message [address] [phone] Osman Ma MD [address] [place] [phone] Upcoming Appointment Social History Tobacco Use Types [...] Info) Description 04/06/2026 2:30 PM EDT Follow-Up [address] [phone] Osman Ma MD [address] [place] [address] documented as of this encounter Visit Diagnoses Not on filedocumented in this encounter Care Teams Negotiations Director Relationship Specialty Start Date End Date Ref, Pieter DO NOT EDIT THIS RECORD VIA PROVIDER ON THE FLY PCP - General Supervisor Whipped Topping 10/01/22 documented as of this encounter
[2025-08-10 06:02] LABS: Hematocrit 44.4 % (42.0-52.0); Hemoglobin 15.0 g/dl (14.0-18.0); Imm Gran Abs Auto 0.02 X10*3/uL (0.00-0.03); Imm Gran Pct Auto 0.3 % (0.0-0.4); Lymphocytes Absolute Auto 2.1 X10*3/uL (1.2-4.9); Mean Corpuscular HGB Conc 33.8 g/dl (31.0-36.0); Mean Corpuscular Hemoglobin 28.1 pg (27.0-33.0); Mean Corpuscular Volume 83.3 fL (80.0-98.0); NRBC Abs Auto 0.000 X10*3/uL (0.0-0.012); NRBC Pct Auto 0.0 /100WBC (0.0-0.2); Platelet Count 250 X10*3/uL (160-400); Red Blood Count 5.33 X10*6/uL (4.60-5.80); White Blood Count 6.3 X10*3/uL (4.8-10.8)
[2025-08-10 06:18] LABS: Alanine Aminotransferase 123 U/L (0-40); Albumin Level 3.8 g/dL (3.5-5.0); Alkaline Phosphatase 61 U/L (39-117); Anion Gap 13 (12-20); Aspartate Amino Transferase 84 U/L (5-37); Blood Urea Nitrogen 16 mg/dL (9-16); Calcium 9.0 mg/dL (8.4-10.2); Carbon Dioxide 25 mmol/L (22-29); Chloride 106 mmol/L (96-108); Estimated Glomerular Filt Rate > 60; Potassium 3.6 mmol/L (3.3-5.1); Sodium 140 mmol/L (135-145); Total Protein 6.3 g/dL (6.5-8.0)
== END 2025-08-10 05:51 | disposition home or self-care (01) ==
LOC: HO.MMNH1L 05:50
PROVIDERS: Visit Provider Physician Assistant Medical
DX: I10 Essential (primary) hypertension (principal); F41.9 Anxiety disorder, unspecified; Z13.1 Encounter for screening for diabetes mellitus
CPT/HCPCS: 36415; 80053; 83036; 85025